=== PATIENT | male | born 1955 | race Caucasian/White ===

== ENCOUNTER 2016-12-09 08:01 | Emergency (ER) | payer MEDICARE, OTHER ==
[2016-12-09] MEDS ORDERED: ONDANSETRON 4 MG/2 ML VIAL IVP STA (08:52)
[2016-12-09] MEDS ORDERED: SODIUM CHLORIDE 0.9% 1,000 ML IV STA (08:52)
[2016-12-09] MEDS ORDERED: KETOROLAC 30 MG/ML 1 ML VIAL IVP STA (08:52)
[2016-12-09 09:16] LABS: Basophils # (A) 0.1 k/uL (0-0.2); Basophils % (A) 1 %; CH 32.9; CHCM 35.3; Eosinophils # (A) 0.3 k/uL (0-0.7); Eosinophils % (A) 4 %; HCT 44.4 % (39.0-53.0); HDW 2.41; HGB 15.9 gm/dL (13.0-17.5); Luc # (Auto) 0.14; Luc % (Auto) 2; Lymphocytes # (A) 1.7 k/uL (1.0-4.8); Lymphocytes % (A) 23 %; MCH 33.4 pg (25.0-35.0); MCHC 35.8 g/dL (31.0-37.0); MCV 93.4 fL (80.0-100.0); Mean Platelet Volume 7.9; Monocytes # (A) 0.8 k/uL (0-1.0); Monocytes % (A) 10 %; Neutrophils # (A) 4.7 k/uL (1.3-7.7); Neutrophils % (A) 61 %; RBC 4.75 m/uL (4.30-5.90); RDW 13.4 % (11.5-15.5); WBC 7.7 k/uL (3.8-10.6); WBC (Perox) 6.74
[2016-12-09 09:18] LABS: Appearance,Urine Clear (Clear); Bilirubin,Urine Negative (Negative); Glucose,Urine (UA) Negative (Negative); Ketones,Urine Negative (Negative); Leukocyte Esterase,Urine Negative (Negative); Nitrite,Urine Negative (Negative); PH, Urine 6.5 (5.0-8.0); Protein,Urine Negative (Negative); Specific Gravity,Urine 1.005 (1.001-1.035); UA Billing (MACRO vs. MICRO) CHEM; Urobilinogen,Urine <2.0 mg/dL (<2.0)
[2016-12-09 09:30] LABS: ALT 43 U/L (21-72); AST 22 U/L (17-59); Alkaline Phosphatase 41 U/L (38-126); Amylase 39 U/L (30-110); Anion Gap 7 mmol/L; Blood Urea Nitrogen 8 mg/dL (9-20); Carbon Dioxide 24 mmol/L (22-30); Chloride 101 mmol/L (98-107); Glucose 100 mg/dL (74-99); Non-African American GFR(MDRD) >60 (>60 ml/min/1.73 sqM); Potassium 4.1 mmol/L (3.5-5.1); Sodium 132 mmol/L (137-145); Total Bilirubin 0.5 mg/dL (0.2-1.3)
--- NOTE | 2016-12-09 09:34 | XR ---
EXAMINATION TYPE: XR KUB DATE OF EXAM: 12/09/2016 COMPARISON: NONE HISTORY: Pain TECHNIQUE: Single supine KUB image of the abdomen is obtained FINDINGS: Small bowel demonstrates no evidence for dilatation or air fluid levels. Gas and fecal material is seen in non-distended colon. No convincing evidence for pneumoperitoneum. No unusual calcifications. The lung bases are clear. The osseous structures are intact. IMPRESSION: 1. Overall nonobstructive bowel gas pattern.
--- NOTE | 2016-12-09 09:42 | ED ---
Back Pain HPI - General Chief Complaint: Back Pain/Injury Stated Complaint: back pain Time Seen by Provider: 12/09/16 08:42 Source: patient, RN notes reviewed, old records reviewed Limitations: no limitations - History of Present Illness Initial Comments: 61-year-old male presents emergency Department chief complaint of left lower back pain made towards his hip. Patient reports that he was at [facility] diagnosed with kidney stone. He isn't placed on antibiotics as well as given pain medication and Flomax to pass a kidney stone. Patient ports that the pain has been continuous since then. Patient denies any fever or chills. Denies any abdominal pain. Patient reports that he is constipated despite using stool softeners because of the pain medications. Patient denies any recent fever or chills, chest pain, shortness breath, nausea or vomiting. He states he's had normal urination. Patient denies any recent falls. - Related Data Home Medications Medication Instructions Recorded Confirmed Aspirin 81 mg PO BID 04/21/15 12/09/16 Atorvastatin [Lipitor] 20 mg PO HS 04/21/15 12/09/16 Gabapentin [Neurontin] 600 mg PO BID 04/21/15 12/09/16 HYDROcodone/APAP 10-325MG [Dawn 1 tab PO QID 04/21/15 12/09/16 10-325] Ipratropium [place] [Atrovent Hfa] 2 puff INHALATION RT-TID 04/21/15 12/09/16 amLODIPine [Norvasc] 10 mg PO DAILY 04/21/15 12/09/16 Previous Rx's Medication Instructions Recorded Cyclobenzaprine [Flexeril] 10 mg PO TID #15 tab 12/09/16 HYDROcodone/APAP 5-325MG [Dawn 1 tab PO Q6HR PRN #12 tab 12/09/16 5-325] Allergies Allergy/AdvReac Type Severity Reaction Status Date / Time venom-honey bee Allergy Unknown Verified 12/09/16 08:47 [bee venom (honey bee)] prednisone AdvReac headache Verified 12/09/16 08:47 Review of Systems ROS Statement: Those systems with pertinent positive or pertinent negative responses have been documented in the HPI. ROS Other: All systems not noted in ROS Statement are negative. Past Medical History Past Medical History: Coronary Artery Disease (CAD), COPD, Deep Vein Thrombosis (DVT), Hyperlipidemia, Hypertension, Osteoarthritis (OA), Vascular Disorder Additional Past Medical History / Comment(s): PAD, suspect some component of COPD with a 15+ pack per day smoking history, quit 2009. History of Any Multi-Drug Resistant Organisms: None Reported Past Surgical History: Hernia Repair, Joint Replacement, Orthopedic Surgery Additional Past Surgical History / Comment(s): Fem-pop bypass, rt carotid endarterectomy, christy knee arthroscopy, rt hip replacement Past Anesthesia/Blood Transfusion Reactions: No Reported Reaction Past Psychological History: No Psychological Hx Reported Smoking Status: Former smoker Past Alcohol Use History: Occasional Past Drug Use History: None Reported - Past Family History Father Family Medical History: Cancer Additional Family Medical History / Comment(s): lung General Exam - General Exam Comments Initial Comments: Review 11-year-old male. No acute distress. Limitations: no limitations General appearance: alert, in no apparent distress Head exam: Present: atraumatic, normocephalic, normal inspection Eye exam: Present: normal appearance, PERRL, EOMI. Absent: scleral icterus, conjunctival injection, periorbital swelling ENT exam: Present: normal exam, mucous membranes moist Neck exam: Present: normal inspection. Absent: tenderness, meningismus, lymphadenopathy Respiratory exam: Present: normal lung sounds bilaterally. Absent: respiratory distress, wheezes, rales, rhonchi, stridor Cardiovascular Exam: Present: regular rate, normal rhythm, normal heart sounds. Absent: systolic murmur, diastolic murmur, rubs, gallop, clicks GI/Abdominal exam: Present: soft, normal bowel sounds. Absent: distended, tenderness, guarding, rebound, rigid Extremities exam: Present: normal inspection, full ROM, normal capillary refill. Absent: tenderness, pedal edema, joint swelling, calf tenderness Back exam: Present: normal inspection Neurological exam: Present: alert, oriented X3, CN II-XII intact Psychiatric exam: Present: normal affect, normal mood Skin exam: Present: warm, dry, intact, normal color. Absent: rash Course Vital Signs 12/09/16 12/09/16 12/09/16 08:15 09:44 10:50 Temperature 97.1 F L 97.8 F 98.0 F Pulse Rate 85 60 63 Respiratory 17 18 18 Rate Blood Pressure 157/72 111/63 111/55 O2 Sat by Pulse 97 100 99 Oximetry Medical Decision Making - Medical Decision Making 61-year-old male presents emergency Department chief complaint of left lower back pain made towards his hip. Patient reports that he was at [facility] diagnosed with kidney stone. He isn't placed on antibiotics as well as given pain medication and Flomax to pass a kidney stone. Patient ports that the pain has been continuous since then. Patient denies any fever or chills. Denies any abdominal pain. Patient reports that he is constipated despite using stool softeners because of the pain medications. She is under grocery negative for any acute process. Patient's urinalysis also shows signs of infection or blood in the case further concerns for kidney stone. Discussed the patient likely could pass edematous. Time. Patient is somewhat tender to palpation over the back. Considering the durations of symptoms and lab work is likely to be a musculoskeletal problem. Patient was discharged with pain medication. Discussed close follow-up with primary care provider. Patient agrees to treatment plan will comply. Return parameters were discussed. Patient was given magnesium citrate to aid with history of constipation. - Lab Data Result diagrams: 12/09/16 09:00 12/09/16 09:00 Lab Results 12/09/16 12/09/16 12/09/16 Range/Units 08:20 09:00 09:00 WBC 7.7 (3.8-10.6) k/uL RBC 4.75 (4.30-5.90) m/uL Hgb 15.9 (13.0-17.5) gm/dL Hct 44.4 (39.0-53.0) % MCV 93.4 (80.0-100.0) fL MCH 33.4 (25.0-35.0) pg MCHC 35.8 (31.0-37.0) g/dL RDW 13.4 (11.5-15.5) % Plt Count 213 (150-450) k/uL Neutrophils % 61 % Lymphocytes % 23 % Monocytes % 10 % Eosinophils % 4 % Basophils % 1 % Neutrophils # 4.7 (1.3-7.7) k/uL Lymphocytes # 1.7 (1.0-4.8) k/uL Monocytes # 0.8 (0-1.0) k/uL Eosinophils # 0.3 (0-0.7) k/uL Basophils # 0.1 (0-0.2) k/uL Sodium 132 L (137-145) mmol/L Potassium 4.1 (3.5-5.1) mmol/L Chloride 101 (98-107) mmol/L Carbon Dioxide 24 (22-30) mmol/L Anion Gap 7 mmol/L BUN 8 L (9-20) mg/dL Creatinine 0.73 (0.66-1.25) mg/dL Est GFR (MDRD) Af Amer >60 (>60 ml/min/1.73 sqM) Est GFR (MDRD) Non-Af >60 (>60 ml/min/1.73 sqM) Glucose 100 H (74-99) mg/dL Calcium 9.0 (8.4-10.2) mg/dL Total Bilirubin 0.5 (0.2-1.3) mg/dL AST 22 (17-59) U/L ALT 43 (21-72) U/L Alkaline Phosphatase 41 (38-126) U/L Total Protein 7.0 (6.3-8.2) g/dL Albumin 4.0 (3.5-5.0) g/dL Amylase 39 (30-110) U/L Lipase 120 (23-300) U/L Urine Color Light Yellow Urine Appearance Clear (Clear) Urine pH 6.5 (5.0-8.0) Ur Specific [place] 1.005 (1.001-1.035) Urine Protein Negative (Negative) Urine Glucose (UA) Negative (Negative) Urine Ketones Negative (Negative) Urine Blood Negative (Negative) Urine Nitrite Negative (Negative) Urine Bilirubin Negative (Negative) Urine Urobilinogen <2.0 (<2.0) mg/dL Ur Leukocyte Esterase Negative (Negative) - Radiology Data Radiology results: report reviewed Overall nonobjective bowel gas pattern. Disposition Clinical Impression: Back pain, Constipation Disposition: HOME SELF-CARE Condition: Good Instructions: Constipation (ED), Chronic Back Pain (ED) Additional Instructions: Patient advised to rest, continue to increase her fluids. Patient should follow -up with primary doctor. Continue to take stool softeners. Prescriptions: Cyclobenzaprine [Flexeril] 10 mg PO TID #15 tab HYDROcodone/APAP 5-325MG [Dawn 5-325] 1 tab PO Q6HR PRN #12 tab PRN Reason: Pain Referrals: Jacey Mcgrath DO [Primary Care Provider] - 1-2 days Time of Disposition: 10:34
[2016-12-09 09:45] VITALS: RESP 18
[2016-12-09] MEDS ORDERED: MAGNESIUM CITRATE 296 ML BOTTLE PO ONE (10:35)
[2016-12-09 10:53] VITALS: BP 111/55; PULSE 63; TEMP 98
[2016-12-09] MEDS ORDERED: IBUPROFEN 600 MG TAB PO STA (10:54)
== END 2016-12-09 11:08 | disposition home or self-care (01) ==
LOC: EC 08:01
DX: M54.5 Low back pain (principal); K59.00 Constipation, unspecified; I25.10 Atherosclerotic heart disease of native coronary artery without angina pectoris; J44.9 Chronic obstructive pulmonary disease, unspecified; E78.5 Hyperlipidemia, unspecified; I10 Essential (primary) hypertension; M19.90 Unspecified osteoarthritis, unspecified site; Z87.891 Personal history of nicotine dependence; Z79.899 Other long term (current) drug therapy; Z79.82 Long term (current) use of aspirin; Z79.891 Long term (current) use of opiate analgesic; Z91.030 Bee allergy status; Z88.8 Allergy status to other drugs, medicaments and biological substances; Z98.890 Other specified postprocedural states
CPT/HCPCS: 36415; 80053; 82150; 83690; 85025; 81003; 74000; 99284; 96374; 96375; 96361 ×2; J2405; J1885

== ENCOUNTER 2017-08-16 12:54 | Emergency (ER) | payer MEDICARE, OTHER ==
[2017-08-16 13:15] VITALS: PULSE 98; RESP 18
[2017-08-16] MEDS ORDERED: MORPHINE SULFATE 4 MG/ML SYRINGE IVP STA ×2 (17:12→18:21)
--- NOTE | 2017-08-16 17:48 | ED ---
General Adult HPI <Nehemiah Arreaga - Last Filed: 08/16/17 18:30> - General Source: patient Mode of arrival: wheelchair Limitations: no limitations <Vito Brown - Last Filed: 08/16/17 18:37> - General Chief complaint: Extremity Problem,Nontraumatic Stated complaint: Inflamed left foot Time Seen by Provider: 08/16/17 16:22 - History of Present Illness Initial comments: 61-year-old male presents to the emergency department for a chief complaint of left lower extremity pain. Patient says this pain has been ongoing for the past month. It has become especially worse in the past 2 days. Patient states his foot has also been red for the past month. Patient does have a history of peripheral vascular disease and had a fempop bypass by Dr. Quintanilla in 2014. In 2015 it was found to be occluded. Patient also admits to feeling colder. He has an appointment with Dr. Quintanilla in 2 days but could not manage the pain until that time. He is taking Weir 10-325 and that is not helping. He also states his nails look wider on the left foot. He says the pain is worse when he tries to walk on it and also hurts to bear weight. He states his foot looks more red when he lowers it and becomes increasingly pale when he raises it. Patient denies any injury to the foot. Denies any increased swelling to the foot as well. Patient had a negative Doppler last week which ruled out DVT. ( Vito Brown) - Related Data Home Medications Medication Instructions Recorded Confirmed Aspirin 81 mg PO BID 04/21/15 08/16/17 Atorvastatin [Lipitor] 20 mg PO HS 04/21/15 08/16/17 Gabapentin [Neurontin] 600 mg PO BID 04/21/15 08/16/17 HYDROcodone/APAP 10-325MG [Weir 1 tab PO QID 04/21/15 08/16/17 10-325] Ipratropium [place] [Atrovent Hfa] 2 puff INHALATION RT-HS 04/21/15 08/16/17 amLODIPine [Norvasc] 10 mg PO DAILY 04/21/15 08/16/17 Previous Rx's Medication Instructions Recorded Cyclobenzaprine [Flexeril] 10 mg PO TID #15 tab 12/09/16 Allergies Allergy/AdvReac Type Severity Reaction Status Date / Time venom-honey bee Allergy Unknown Verified 08/16/17 16:08 [bee venom (honey bee)] prednisone AdvReac headache Verified 08/16/17 16:08 Review of Systems ROS Other: All systems not noted in ROS Statement are negative. <Nehemiah Arreaga - Last Filed: 08/16/17 18:30> ROS Other: All systems not noted in ROS Statement are negative. <Vito Brown - Last Filed: 08/16/17 18:37> ROS Statement: Those systems with pertinent positive or pertinent negative responses have been documented in the HPI. Past Medical History Past Medical History: Coronary Artery Disease (CAD), COPD, Deep Vein Thrombosis (DVT), Hyperlipidemia, Hypertension, Osteoarthritis (OA), Vascular Disorder Additional Past Medical History / Comment(s): PAD, suspect some component of COPD with a 15+ pack per day smoking history, quit 2009. History of Any Multi-Drug Resistant Organisms: None Reported Past Surgical History: Hernia Repair, Joint Replacement, Orthopedic Surgery Additional Past Surgical History / Comment(s): Fem-pop bypass, rt carotid endarterectomy, christy knee arthroscopy, rt hip replacement Past Anesthesia/Blood Transfusion Reactions: No Reported Reaction Past Psychological History: No Psychological Hx Reported Smoking Status: Former smoker Past Alcohol Use History: Occasional Past Drug Use History: None Reported - Past Family History Father Family Medical History: Cancer Additional Family Medical History / Comment(s): lung <Vito Brown - Last Filed: 08/16/17 18:37> General Exam Limitations: no limitations General appearance: alert, in no apparent distress Head exam: Present: atraumatic, normocephalic, normal inspection Respiratory exam: Present: normal lung sounds bilaterally. Absent: respiratory distress, wheezes, rales, rhonchi, stridor Cardiovascular Exam: Present: regular rate, normal rhythm, normal heart sounds. Absent: systolic murmur, diastolic murmur, rubs, gallop, clicks Extremities exam: Present: tenderness (Tenderness in the left foot and digits), other (No sores or signs of infection noted in the left foot.). Absent: normal inspection, full ROM (Limited range of motion in the phalanges of the left foot. ), pedal edema, joint swelling, calf tenderness <Vito Brown - Last Filed: 08/16/17 18:37> Vital Signs 08/16/17 13:12 Temperature 98.6 F Pulse Rate 98 Respiratory 18 Rate Blood Pressure 130/75 O2 Sat by Pulse 96 Oximetry Medical Decision Making - Lab Data Result diagrams: 08/16/17 17:40 08/16/17 17:40 <Nehemiah Arreaga - Last Filed: 08/16/17 18:30> - Lab Data Result diagrams: 08/16/17 17:40 08/16/17 17:40 <KevinVito P - Last Filed: 08/16/17 18:37> - Medical Decision Making Medical decision making; Doppler study shows positive posterior tibial artery. The patient has warm leg except for the distal forefoot of his left foot. He reports for the past month she's had discoloration states it began slightly worse over the last couple days. Patient reports his Weir was not helping. Examination with Doppler findings as noted above posterior tibial pulse. Unable to find a pedis dorsalis pulses on the left foot. His toes to mandi and refill. His problems been chronic over at least one week. I discussed the case with Dr. Quintanilla well. The patient will be seen by him tomorrow in the office at approximately noon. Patient was made comfortable emergency room with pain medication. Advised to keep his foot in a comfortable position. Return emergency room for any changes. Dr. Arreaga (Nehemiah Arreaga) 61-year-old male patient presents to the ER with chief complaint of left lower extremity pain. Patient has a history of peripheral vascular disease with a fem -pop bypass performed by Dr. Quintanilla 2014. In 2016 it was noted to be occluded. Patient states the pain has been ongoing for the past month but got worse in the past 2 days. Patient states he noticed his foot is very red when he lowers it and it becomes white when he raises it above his head. Patient states he has an appointment with Dr. Quintanilla in 2 days but the pain became unbearable even with Weir. Patient had a negative venous Doppler last week which ruled out DVT. Bedside Doppler was used today to locate a pedal pulse in his left foot. I was able to locate the pedal pulse in the right foot but I was unsuccessful in the left foot. I did however locate the posterior tibial pulse in the left foot with Dr. Arreaga. Dr. Arreaga contacted Dr. Quintanilla and as this pain has been ongoing for the past month the patient will see him tomorrow at noon. The patient is in agreement with this plan of action and they are happy they will see Dr. Quintanilla sooner. After administration of 4 mg of morphine the patient felt much better. 2 more milligrams will be administered before he leaves. (Vito Brown) - Lab Data Lab Results 08/16/17 08/16/17 Range/Units 17:40 17:40 WBC 8.6 (3.8-10.6) k/uL RBC 4.70 (4.30-5.90) m/uL Hgb 14.7 (13.0-17.5) gm/dL Hct 44.2 (39.0-53.0) % MCV 93.9 (80.0-100.0) fL MCH 31.3 (25.0-35.0) pg MCHC 33.4 (31.0-37.0) g/dL RDW 12.9 (11.5-15.5) % Plt Count 236 (150-450) k/uL Neutrophils % 64 % Lymphocytes % 24 % Monocytes % 8 % Eosinophils % 3 % Basophils % 0 % Neutrophils # 5.5 (1.3-7.7) k/uL Lymphocytes # 2.0 (1.0-4.8) k/uL Monocytes # 0.7 (0-1.0) k/uL Eosinophils # 0.2 (0-0.7) k/uL Basophils # 0.0 (0-0.2) k/uL Sodium 138 (137-145) mmol/L Potassium 4.4 (3.5-5.1) mmol/L Chloride 101 (98-107) mmol/L Carbon Dioxide 27 (22-30) mmol/L Anion Gap 10 mmol/L BUN 11 (9-20) mg/dL Creatinine 0.70 (0.66-1.25) mg/dL Est GFR (CKD-EPI)AfAm >90 (>60 ml/min/1.73 sqM) Est GFR (CKD-EPI)NonAf >90 (>60 ml/min/1.73 sqM) Glucose 96 (74-99) mg/dL Calcium 9.9 (8.4-10.2) mg/dL Disposition <Nehemiah Arreaga - Last Filed: 08/16/17 18:30> Time of Disposition: 18:37 <Vito Brown - Last Filed: 08/16/17 18:37> Clinical Impression: Peripheral vascular disease Disposition: HOME SELF-CARE Condition: Good Instructions: Peripheral Artery Disease (ED) Additional Instructions: Please follow up with Dr. Quintanilla at the scheduled time of tomorrow at noon. Please return to the emergency department if your pain worsens severely. Referrals: Jacey Mcgrath DO [Primary Care Provider] - 1-2 days
[2017-08-16 17:56] LABS: Basophils % (A) 0 %; Eosinophils # (A) 0.2 k/uL (0-0.7); Eosinophils % (A) 3 %; HCT 44.2 % (39.0-53.0); HGB 14.7 gm/dL (13.0-17.5); Lymphocytes % (A) 24 %; MCH 31.3 pg (25.0-35.0); MCHC 33.4 g/dL (31.0-37.0); MCV 93.9 fL (80.0-100.0); Mean Platelet Volume 7.2; Monocytes # (A) 0.7 k/uL (0-1.0); Monocytes % (A) 8 %; Neutrophils # (A) 5.5 k/uL (1.3-7.7); Neutrophils % (A) 64 %; Platelet Count 236 k/uL (150-450); RDW 12.9 % (11.5-15.5); WBC 8.6 k/uL (3.8-10.6)
[2017-08-16 18:14] LABS: Anion Gap 10 mmol/L; Blood Urea Nitrogen 11 mg/dL (9-20); Calcium 9.9 mg/dL (8.4-10.2); Carbon Dioxide 27 mmol/L (22-30); Chloride 101 mmol/L (98-107); Glucose 96 mg/dL (74-99); Potassium 4.4 mmol/L (3.5-5.1); Sodium 138 mmol/L (137-145)
[2017-08-16 18:50] VITALS: BP 135/76; TEMP 98.3
== END 2017-08-16 18:50 | disposition home or self-care (01) ==
LOC: EC 12:54
DX: I73.9 Peripheral vascular disease, unspecified (principal); I25.10 Atherosclerotic heart disease of native coronary artery without angina pectoris; J44.9 Chronic obstructive pulmonary disease, unspecified; E78.5 Hyperlipidemia, unspecified; I10 Essential (primary) hypertension; Z95.1 Presence of aortocoronary bypass graft; Z87.891 Personal history of nicotine dependence; Z79.82 Long term (current) use of aspirin; Z79.891 Long term (current) use of opiate analgesic; Z91.030 Bee allergy status; Z88.8 Allergy status to other drugs, medicaments and biological substances
CPT/HCPCS: 99284; 96374; 36415; 80048; 85025; J2270

== ENCOUNTER → 2019-05-10 | Outpatient (CLI) | payer MEDICARE ==
--- NOTE | 2019-05-10 17:04 | CT ---
EXAMINATION TYPE: CT angio abd aorta w/Runoff DATE OF EXAM: 05/10/2019 COMPARISON: None INDICATION: Possible right femoral occlussion DLP: 1188.2 mGycm, Automated exposure control for dose reduction was used. CONTRAST: 120 mL of Isovue 370. Study performed TECHNIQUE: Axial images were obtained from above the diaphragm to the pubic rami in the axial plane a t 5 mm thick sections. Reconstructed images are reviewed on the computer in the coronal plane. FINDINGS: Limited CT sections are obtained the lung bases. The lung bases are clear. CTA: Contrast timing is for evaluation of the aorta and runoff. Vascular calcification is within the aorta. Celiac axis and superior mesenteric artery are patent. There are 2 renal arteries. There is mi nimal fusiform prominence of the midabdominal aorta with an AP diameter of 2.5 cm. Aortic bifurcation is slightly prominent with an AP diameter of 2.7 cm just above the bifurcation. Iliac vessels are calcified but are patent. There is some prominence of the mid right common iliac ar melly measuring 1.7 cm. External iliac vessels are patent. Vascular calcification is present may have some narrowing present. Contrast is evident within the distal external iliac vessels. Common femoral arteries appear to lack of contrast. Vascular calcification is noted. There is likely some collateral vessel reconstitution with visualization of a left superficial vascular structure ext ending to the medial left knee reconstituting the popliteal artery. Has there been a bypass? Trifurcation vessels:The visualized trifurcation vessels are patent on the left. The left posterior t ibial artery is patent to the level of the ankle. Left Anterior tibial and peroneal artery appears to terminate within the calf region. Trifurcation vessels on the right are patent to the level of the a nkle. Popliteal artery on the right appears to contain contrast. The superficial femoral artery however has limited contrast and has vascular calcification. This may have reconstitution at the popliteal arter y from collateral vessels. Three-D reconstructed images appear to better visualize the vascular structures. However, there is ex tensive vascular calcification in the degree of stenosis in these regions may be underestimated. CT ABDOMEN: Liver: Normal Spleen: Normal Pancreas: Fatty infiltration liver is present. Adrenal glands: The adrenal glands are normal. Gallbladder: Cholelithiasis is present. Kidneys: No masses are evident. No hydronephrosis is present. No cysts are present. Delayed images were obtained through the kidneys, which remain unremarkable. Aorta: Vascular calcification is within the aorta. Inferior vena cava: Normal. CT PELVIS: Limitations present from beam hardening artifact lower right hip prosthesis. Loops of bowel within the abdomen and pelvis are normal. There are loops of bowel which are incom pletely distended or lack oral contrast limiting their evaluation. Appendix: Normal as visualized. Urinary bladder: Normal. Genitourinary structures: Osseous structures: No suspicious lytic or sclerotic lesions. IMPRESSIONS: 1. There appears to be obstruction of the bilateral common femoral arteries although reconstitution may be present on the right and collateral vascular reconstitution is present on the left to the trif urcation vessels.
== END | disposition home or self-care (01) ==
LOC: RADCTMAIN 15:04
PROVIDERS: ATTEND Surgery
DX: I70.213 Atherosclerosis of native arteries of extremities with intermittent claudication, bilateral legs (principal)
CPT/HCPCS: 75635; Q9967

== ENCOUNTER → 2019-05-17 | Outpatient (CLI) | payer MEDICARE ==
[2019-05-17 16:31] LABS: African American GFR (CKD) >90 (>60 ml/min/1.73 sqM); Anion Gap 10 mmol/L; Blood Urea Nitrogen 9 mg/dL (9-20); Carbon Dioxide 26 mmol/L (22-30); Chloride 103 mmol/L (98-107); Non-African American GFR(CKD) 89 (>60 ml/min/1.73 sqM); Potassium 4.4 mmol/L (3.5-5.1); Sodium 139 mmol/L (137-145)
[2019-05-17 16:35] LABS: Basophils % (A) 1 %; Eosinophils # (A) 0.2 k/uL (0-0.7); Eosinophils % (A) 2 %; HCT 40.1 % (39.0-53.0); HGB 13.4 gm/dL (13.0-17.5); Lymphocytes % (A) 17 %; MCH 32.9 pg (25.0-35.0); MCHC 33.4 g/dL (31.0-37.0); MCV 98.6 fL (80.0-100.0); Mean Platelet Volume 7.1; Monocytes # (A) 0.6 k/uL (0-1.0); Monocytes % (A) 11 %; Neutrophils # (A) 4.1 k/uL (1.3-7.7); Neutrophils % (A) 67 %; Platelet Count 234 k/uL (150-450); RBC 4.06 m/uL (4.30-5.90); RDW 12.5 % (11.5-15.5); WBC 6.1 k/uL (3.8-10.6)
== END | disposition home or self-care (01) ==
LOC: LABPAT 15:47
PROVIDERS: ATTEND Surgery
DX: Z01.812 Encounter for preprocedural laboratory examination (principal)
CPT/HCPCS: 36415; 80051; 82565; 84520; 85025

== ENCOUNTER 2019-06-18 12:08 | Day surgery (SDC) | payer MEDICARE, OTHER ==
[2019-06-13 13:39] VITALS: BMI 28.1
[~2019-06-18 12:08] MED LIST: ASPIRIN 325 MG TAB PO STA; SODIUM CHLORIDE 0.9% 1,000 ML in EMPTY BAG 1 BAG IV ONE
[2019-06-18 12:46] LABS: Basophils # (A) 0.1 k/uL (0-0.2); Basophils % (A) 1 %; Eosinophils # (A) 0.3 k/uL (0-0.7); Eosinophils % (A) 3 %; Lymphocytes # (A) 1.7 k/uL (1.0-4.8); Lymphocytes % (A) 21 %; MCH 33.9 pg (25.0-35.0); MCHC 34.1 g/dL (31.0-37.0); MCV 99.4 fL (80.0-100.0); Monocytes # (A) 0.5 k/uL (0-1.0); Monocytes % (A) 7 %; Neutrophils # (A) 5.3 k/uL (1.3-7.7); Neutrophils % (A) 66 %; Platelet Count 226 k/uL (150-450); RBC 4.12 m/uL (4.30-5.90); RDW 12.7 % (11.5-15.5)
[2019-06-18 12:55] LABS: African American GFR (CKD) >90 (>60 ml/min/1.73 sqM); Anion Gap 8 mmol/L; Blood Urea Nitrogen 13 mg/dL (9-20); Calcium 9.7 mg/dL (8.4-10.2); Carbon Dioxide 24 mmol/L (22-30); Chloride 108 mmol/L (98-107); Glucose 115 mg/dL (74-99); Non-African American GFR(CKD) >90 (>60 ml/min/1.73 sqM); Potassium 4.4 mmol/L (3.5-5.1); Sodium 140 mmol/L (137-145)
[2019-06-18] MEDS ORDERED: NEOSTIGMINE 1 MG/ML 10 ML VIAL ONE (14:07)
[2019-06-18] MEDS ORDERED: .MORPHINE SULFATE (INJ) 10 MG/ML SYRINGE ONE (14:07)
[2019-06-18] MEDS ORDERED: ROCURONIUM BROMIDE 10 MG/ML 10 ML VIAL IV ONE (14:07)
[2019-06-18] MEDS ORDERED: MIDAZOLAM 2 MG/2 ML VIAL ONE (14:07)
[2019-06-18] MEDS ORDERED: GLYCOPYRROLATE 0.2 MG/ML 2 ML VIAL ONE (14:07)
[2019-06-18] MEDS ORDERED: SUCCINYLCHOLINE CHLORIDE 100 MG/5 ML SYR IV ONE (14:07)
[2019-06-18] MEDS ORDERED: ONDANSETRON 4 MG/2 ML VIAL ONE (14:07)
[2019-06-18] MEDS ORDERED: LIDOCAINE 1% INJ 10MG/ML (20 ML MDV) ONE (14:07)
[2019-06-18] MEDS ORDERED: PROPOFOL 10 MG/ML 20 ML VIAL IV ONE (14:07)
[2019-06-18] MEDS ORDERED: PHENYLEPHRINE-0.9% NACL SYG 1 MG/10 ML SYRINGE ONE (14:07)
[2019-06-18] MEDS ORDERED: fentaNYL (PF) 50 MCG/ML 2 ML AMP ONE (14:07)
[2019-06-18] MEDS ORDERED: PROTAMINE SULFATE 10 MG/ML 5 ML VIAL IV ONE (14:07)
[2019-06-18] MEDS ORDERED: HEPARIN SODIUM,PORCINE 10,000 UNIT/ML 1 ML VIAL ONE (14:07)
[2019-06-18] MEDS ORDERED: IOPAMIDOL-300 100ML BTL INJ ONE (16:20)
[2019-06-18] MEDS ORDERED: LACTATED RINGERS 1,000 ML IV ONE (16:33)
[2019-06-18] MEDS ORDERED: IPRATROPIUM 0.5 MG/2.5 ML NEBU INHALATION PRN (16:38)
[2019-06-18] MEDS ORDERED: BACLOFEN 10 MG TAB PO PRN (16:38)
[2019-06-18] MEDS ORDERED: EPINEPHRINE 0.3 MG IM PRN (16:38)
--- NOTE | 2019-06-18 17:10 | IR ---
Fluoroscopy HISTORY: Peripheral vascular occlusive disease 12.35 minutes fluoroscopy time supplied to the referring clinician. 496 intraoperative C-arm images document the procedure. See dictated report from vascular surgery.
--- NOTE | 2019-06-18 17:12 | P.OP ---
Date of Procedure: 06/18/19 Preoperative Diagnosis: Right superficial femoral artery stenosis/subtotal occlusion Postoperative Diagnosis: Totally occluded right superficial femoral artery with one of approximately 200 mm Procedure(s) Performed: #1: Ultrasound-guided cannulation right popliteal artery. #2: Right femoral angiogram. #3: Atherectomy right superficial femoral artery. #4: Postatherectomy balloon dilation right superficial femoral artery. #5: Placement drug-eluting stent right superficial femoral artery. Implants: Drug-eluting stent. Anesthesia: GETA Surgeon: Allen Paredes Estimated Blood Loss (ml): 20 IV fluids (ml): 800 Pathology: none sent Condition: stable Disposition: observation Indications for Procedure: Patient is a 63-year-old male who had presented with severe right lower extremity lifestyle limiting calf claudication. He has a long history of peripheral vascular disease having undergone a right left femoral to tibial bypass graft for limb threatening ischemia. He is recovered well from this and now is bothered by his right lower extremity claudication. Physical examination was consistent with femoral artery occlusive disease. Arterial Doppler had been performed which also demonstrated findings consistent with femoral artery occlusive disease. CT angiogram had been performed demonstrating multilevel right SFA stenosis. Patient had been on a medical regimen including both aspirin and Plavix and statin. The diagnosis was reviewed with the patient and his . We discussed both nonoperative, percutaneous as well as operative intervention. Patient wished to proceed with percutaneous intervention. Risks, benefits were discussed with the patient. Consent form signed. Operative Findings: Highly calcified and totally occluded right superficial femoral artery Description of Procedure: Patient was brought to the special procedure suite. Patient was intubated by the department of anesthesiology and placed in the prone position. The right leg had previously been marked. The right popliteal space was sterilely prepped and draped in usual manner. Utilizing ultrasound a micropuncture needle was utilized to cannulate the right popliteal artery. Once cannulated Softip guidewire was advanced into the artery. The needle was withdrawn and a micropuncture sheath and dilator advanced over the guidewire. Guidewire was withdrawn as was the dilator and a 0.035 inch guidewire was advanced under fluoroscopic guidance into the distal femoral artery. The micropuncture sheath was then exchanged for 6-Tristanian sheath. The patient was systemically heparinized with 7000 units of heparin. Under fluoroscopic guidance a 0.018 glide advantage catheter was advanced into the external iliac artery. A quick cross catheter was used to assist in this gu idewire placement. The guidewire was withdrawn and angiogram demonstrated the quick cross catheter to be in the distal external iliac artery. Subsequently a 0.014 inch guidewire was advanced through the quick cross catheter and the quick cross catheter was withdrawn. Angiogram of the right femoral artery was performed. A Hawk 1 atherectomy device was selected and advanced over the guidewire and utilized to atherectomized the mid and proximal portion of the superficial femoral artery. The atherectomy device was removed to clear the collection chamber. Once accomplished attempt at re-advancing the atherectomy device over the guidewire was unsuccessful due to heavily calcified stenosis at the adductor canal level. It was decided not to further attempt pushing the atherectomy device through this area and a balloon angioplasty was then performed of the superficial femoral artery utilizing a 5 mm x 200 mm balloon catheter. Once this was completed a repeat angiogram was performed. This demonstrated a dissection at the adductor canal level. This was controlled with placement of a 7 mm x 100 mm drug-eluting stent. Post-stent dilation was performed of the stented segment. Completion angiogram was once again performed. As demonstrated no flow-limiting lesion. A small dissection near the distal SFA was noted. This was felt to be of relatively little consequence and anticipate this would heal on its own accord without further intervention. With the above findings noted the guidewire and sheath were withdrawn and pressure was held at the puncture site until all evidence of bleeding ceased. Patient received 25 mg of protamine to reverse the heparin effect. Zak wrap was placed about the knee level to help with continued compression. Her graft patient tolerated procedure well awoke without apparent complication was transferred to the phase 1 recovery area satisfactory and stable condition. Total fluoroscopy time was 12.3 minutes. Total contrast volume was 80 ML's of Isovue 270 and patient received 800 mL of intravenous fluid during the procedure.
[2019-06-18] MEDS: HYDROcodone/APAP 10-325MG 1 EACH TAB PO PRN (19:07)
[2019-06-18] MEDS: CLOPIDOGREL 75 MG TAB PO SCH (20:12)
[2019-06-18] MEDS: ASPIRIN 81 MG PO SCH (20:12)
[2019-06-18] MEDS: GABAPENTIN 300 MG CAP PO SCH (20:12)
[2019-06-18] MEDS: SODIUM CHLORIDE 0.9% 1,000 ML IV SCH (20:13)
[2019-06-18] MEDS ORDERED: ATORVASTATIN 80 MG TAB PO SCH (21:00)
[2019-06-18] MEDS ORDERED: LOSARTAN 25 MG TAB PO SCH (21:00)
[2019-06-18 22:54] VITALS: RESP 18
[2019-06-19] MEDS: HYDROcodone/APAP 10-325MG 1 EACH TAB PO PRN ×2 (01:09→08:38)
[2019-06-19 06:45] LABS: African American GFR (CKD) >90 (>60 ml/min/1.73 sqM); Anion Gap 8 mmol/L; Blood Urea Nitrogen 11 mg/dL (9-20); Calcium 9.2 mg/dL (8.4-10.2); Carbon Dioxide 28 mmol/L (22-30); Chloride 105 mmol/L (98-107); Glucose 108 mg/dL (74-99); Non-African American GFR(CKD) >90 (>60 ml/min/1.73 sqM); Sodium 141 mmol/L (137-145)
[2019-06-19] MEDS: SODIUM CHLORIDE 0.9% 1,000 ML IV SCH (08:28)
[2019-06-19] MEDS ORDERED: amLODIPine 10 MG TAB PO SCH (09:00)
[2019-06-19] MEDS ORDERED: ENOXAPARIN 40 MG/0.4 ML SYRINGE SQ SCH (09:00)
[2019-06-19] MEDS: ASPIRIN 81 MG PO SCH (09:42)
[2019-06-19] MEDS: GABAPENTIN 300 MG CAP PO SCH (09:42)
[2019-06-19] MEDS: CLOPIDOGREL 75 MG TAB PO SCH (09:42)
--- NOTE | 2019-06-19 12:09 | P.DS ---
Providers Attending physician: Allen Paredes DO Primary care physician: Jacey [facility] Course: The patient is a 63-year-old male who follows with Dr. Paredes for peripheral arterial disease. Yesterday the patient underwent a right femoral angiogram and arterectomy of the right lower extremity per Dr. Paredes for right superficial femoral artery stenosis/subtotal occlusion. He is doing well today has been up to the restroom without difficulty, states he has mild tenderness of the right popliteal, with no bleeding. Assessment: Patient is alert and oriented. Without any complaints this morning. Lungs sounds clear to auscultation bilaterally, heart was regular without murmur. Bilateral lower extremities warm to touch, no signs of bleeding from right popliteal site. Doppler signals present for B/L femoral, popliteal, PT, and DP Plan - Discharge Summary Discharge Rx Participant: Yes New Discharge Prescriptions: No Action amLODIPine [Norvasc] 10 mg PO DAILY Ipratropium [place] [Atrovent Hfa] 1 puff INHALATION HS PRN PRN Reason: sob HYDROcodone/APAP 10-325MG [[place] 10-325] 1 tab PO QID PRN PRN Reason: Pain Gabapentin [Neurontin] 600 mg PO BID Atorvastatin [Lipitor] 80 mg PO HS Aspirin 81 mg PO DAILY EPINEPHrine (Auto Inject) [Epipen] 0.3 mg IM ONCE PRN PRN Reason: Anaphylaxis Clopidogrel [Plavix] 75 mg PO DAILY Baclofen [Lioresal] 20 mg PO TID PRN PRN Reason: Pain Losartan Potassium [Cozaar] 25 mg PO HS Discharge Medication List Aspirin 81 mg PO DAILY 04/21/15 [History] Atorvastatin [Lipitor] 80 mg PO HS 04/21/15 [History] Gabapentin [Neurontin] 600 mg PO BID 04/21/15 [History] HYDROcodone/APAP 10-325MG [[place] 10-325] 1 tab PO QID PRN 04/21/15 [History] Ipratropium [place] [Atrovent Hfa] 1 puff INHALATION HS PRN 04/21/15 [History] amLODIPine [Norvasc] 10 mg PO DAILY 04/21/15 [History] Clopidogrel [Plavix] 75 mg PO DAILY 05/25/19 [History] EPINEPHrine (Auto Inject) [Epipen] 0.3 mg IM ONCE PRN 05/25/19 [History] Baclofen [Lioresal] 20 mg PO TID PRN 06/13/19 [History] Losartan Potassium [Cozaar] 25 mg PO HS 06/13/19 [History] Follow up Appointment(s)/Referral(s): Allen Paredes DO [Doctor of Osteopathic Medicine] - 06/28/19 Activity/Diet/Wound Care/Special Instructions: No strenuous activity or heavy lifting. May shower, no tub bathing until follow-up appointment. Discharge Disposition: HOME SELF-CARE
[2019-06-19 12:43] VITALS: BP 139/73; PULSE 98; TEMP 98
== END 2019-06-19 14:38 | disposition home or self-care (01) ==
LOC: CATHCVL 12:08 → 3SCARD 17:20 → CATHCVL 06-19 14:38
PROVIDERS: ATTEND Surgery
DX: I70.211 Atherosclerosis of native arteries of extremities with intermittent claudication, right leg (principal); I70.92 Chronic total occlusion of artery of the extremities; I25.10 Atherosclerotic heart disease of native coronary artery without angina pectoris; I10 Essential (primary) hypertension; E78.5 Hyperlipidemia, unspecified; Z98.890 Other specified postprocedural states; Z80.9 Family history of malignant neoplasm, unspecified; Z82.49 Family history of ischemic heart disease and other diseases of the circulatory system; Z87.891 Personal history of nicotine dependence; Z96.641 Presence of right artificial hip joint; Z95.5 Presence of coronary angioplasty implant and graft; Z97.2 Presence of dental prosthetic device (complete) (partial); Z79.02 Long term (current) use of antithrombotics/antiplatelets; Z79.82 Long term (current) use of aspirin; Z79.899 Other long term (current) drug therapy; Z79.891 Long term (current) use of opiate analgesic
CPT/HCPCS: 37227; 80048 ×2; 83735; 85025; C1894 ×2; C1769 ×6; C1887; C1725 ×2; C1714; C1874; J2250; J2720; J1644; J2710; J2270; J2405; J2001; J1650; J3010; J2370; J0330; J2704; Q9967

== ENCOUNTER 2020-04-21 00:21 | Inpatient (IN) | payer MEDICARE, OTHER ==
[2020-04-21 00:56] LABS: Basophils # (A) 0.1 k/uL (0-0.2); Basophils % (A) 1 %; Eosinophils # (A) 0.2 k/uL (0-0.7); Eosinophils % (A) 3 %; HCT 39.5 % (39.0-53.0); HGB 13.4 gm/dL (13.0-17.5); Lymphocytes # (A) 1.7 k/uL (1.0-4.8); Lymphocytes % (A) 23 %; MCH 33.4 pg (25.0-35.0); MCHC 33.8 g/dL (31.0-37.0); MCV 98.6 fL (80.0-100.0); Mean Platelet Volume 6.9; Monocytes # (A) 0.4 k/uL (0-1.0); Monocytes % (A) 6 %; Neutrophils % (A) 65 %; Platelet Count 215 k/uL (150-450); WBC 7.7 k/uL (3.8-10.6)
[2020-04-21 01:05] LABS: INR 1.1 (<1.2)
[2020-04-21] MEDS ORDERED: HEPARIN SODIUM,PORCINE 5,000 UNIT/ML 1 ML VIAL IV PRN (01:16)
[2020-04-21] MEDS ORDERED: NITROGLYCERIN SL TABS 0.4 MG TAB SUBLINGUAL PRN ×2 (01:17→09:08)
--- NOTE | 2020-04-21 01:17 | ED ---
Chest Pain HPI - General Chief Complaint: Chest Pain Stated Complaint: Chest pain Time Seen by Provider: 04/21/20 00:28 Source: patient, RN/MD, EMS Mode of arrival: EMS Limitations: no limitations - History of Present Illness Initial Comments: Allen 4-year-old gentleman with a known history of coronary artery disease who presents to the ER today as a transfer from an outside hospital for further evaluation of an incident knee. Patient reports that earlier today he was working in his garage when he developed chest pain. He immediately with the Hospital where EKG was nonischemic but troponin was elevated. 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 Patient reports that his chest pain resolved weekly after single dose of morphine. He had declined nitroglycerin headache. Patient denies any recent illness, fevers chills cough nausea or vomiting. - Related Data Home Medications Medication Instructions Recorded Confirmed RX: Aspirin 81 mg PO DAILY 04/21/15 06/18/19 RX: Atorvastatin [Lipitor] 80 mg PO HS 04/21/15 06/18/19 RX: Gabapentin [Neurontin] 600 mg PO BID 04/21/15 06/18/19 RX: HYDROcodone/APAP 10-325MG 1 tab PO QID PRN 04/21/15 06/18/19 [[place] 10-325] RX: Ipratropium [place] [Atrovent 1 puff INHALATION HS PRN 04/21/15 06/13/19 Hfa] RX: amLODIPine [Norvasc] 10 mg PO DAILY 04/21/15 06/18/19 Clopidogrel [Plavix] 75 mg PO DAILY 05/25/19 06/13/19 EPINEPHrine (Auto Inject) [Epipen] 0.3 mg IM ONCE PRN 05/25/19 06/13/19 Baclofen [Lioresal] 20 mg PO TID PRN 06/13/19 06/13/19 Losartan Potassium [Cozaar] 25 mg PO HS 06/13/19 06/18/19 Allergies Allergy/AdvReac Type Severity Reaction Status Date / Time venom-honey bee Allergy Anaphylaxis Verified 06/13/19 13:22 [bee venom (honey bee)] Review of Systems ROS Statement: Those systems with pertinent positive or pertinent negative responses have been documented in the HPI. ROS Other: All systems not noted in ROS Statement are negative. EKG Findings - EKG Comments: EKG Findings:: EKG was obtained due to previous chest pain and elevated troponin, EKG was obtained at 12:20 AM rate is 74 rhythm is sinus there is a normal axis, there are normal intervals, DC 174 QRS 88 QTc is 437 there are no acute ST elevations or depressions there is no evidence of acute ischemia or infarction. Past Medical History Past Medical History: Coronary Artery Disease (CAD), Deep Vein Thrombosis (DVT), Hyperlipidemia, Hypertension, Osteoarthritis (OA), Vascular Disorder Additional Past Medical History / Comment(s): dvt left leg, History of Any Multi-Drug Resistant Organisms: None Reported Past Surgical History: Heart Catheterization With Stent, Hernia Repair, Joint Replacement, Orthopedic Surgery Additional Past Surgical History / Comment(s): lt Fem-pop bypass, christy carotid endarterectomy, christy knee arthroscopy, rt hip replacement, one cardiact stent Past Anesthesia/Blood Transfusion Reactions: No Reported Reaction Date of Last Stent Placement:: 08/2017 Past Psychological History: No Psychological Hx Reported Smoking Status: Former smoker Past Alcohol Use History: Daily Past Drug Use History: None Reported - Past Family History Father Family Medical History: Cancer Additional Family Medical History / Comment(s): lung Brother(s) Family Medical History: Cancer General Exam - General Exam Comments Initial Comments: Physical Exam GENERAL: Patient is well-developed and well-nourished. Patient is nontoxic and well-hydrated and is in no distress. HENT: Normocephalic, Atraumatic. EYES: PERRL, EOMI PULMONARY: Unlabored respirations. 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 Patient agreeable to this plan Disposition Clinical Impression: NSTEMI (non-ST elevated myocardial infarction) Disposition: ADMITTED IP TO THIS HOSP Condition: Serious Is patient prescribed a controlled substance at d/c from ED?: No Referrals: Jacey Mcgrath DO [Primary Care Provider] - 1-2 days
[2020-04-21 01:33] LABS: ALT 76 U/L (4-49); AST 63 U/L (17-59); African American GFR (CKD) >90 (>60 ml/min/1.73 sqM); Albumin 4.4 g/dL (3.5-5.0); Alkaline Phosphatase 70 U/L (38-126); Anion Gap 10 mmol/L; Blood Urea Nitrogen 12 mg/dL (9-20); Calcium 9.4 mg/dL (8.4-10.2); Carbon Dioxide 21 mmol/L (22-30); Chloride 105 mmol/L (98-107); Glucose 115 mg/dL (74-99); Non-African American GFR(CKD) >90 (>60 ml/min/1.73 sqM); Potassium 4.2 mmol/L (3.5-5.1); Sodium 136 mmol/L (137-145); Total Bilirubin 0.4 mg/dL (0.2-1.3); Total Protein 8.1 g/dL (6.3-8.2)
[2020-04-21] MEDS: HEPARIN SOD,PORK IN 0.45% NACL 25,000 UNIT in 0.45% NACL 1 250ML.BAG IV SCH (01:53)
[2020-04-21] MEDS ORDERED: HYDROcodone/APAP 10-325MG 1 EACH TAB PO ONE (06:11)
[2020-04-21] MEDS ORDERED: SODIUM CHLORIDE 0.9% 1,000 ML in EMPTY BAG 1 BAG IV ONE (09:08)
[2020-04-21] MEDS ORDERED: ATORVASTATIN 80 MG TAB PO STA (09:08)
[2020-04-21] MEDS ORDERED: ALPRAZolam 0.25 MG TAB PO PRN (09:08)
[2020-04-21] MEDS ORDERED: ASPIRIN 325 MG TAB PO STA (09:08)
[2020-04-21] MEDS ORDERED: ALPRAZolam 0.5 MG TAB PO PRN (09:08)
[2020-04-21] MEDS ORDERED: IPRATROPIUM 0.5 MG/2.5 ML NEBU INHALATION PRN (09:30)
[2020-04-21] MEDS ORDERED: EPINEPHrine 1 MG/ML 1 ML AMP IM PRN (09:30)
[2020-04-21] MEDS: NITROGLYCERIN OINT 1 INCH/GM PACKET TOPICAL SCH ×3 (09:34→23:44)
[2020-04-21 09:46] LABS: Glucose,Whole Blood 97 mg/dL (75-99)
--- NOTE | 2020-04-21 10:59 | CONS ---
CONSULTATION Mr. Bowen is a 64-year-old male with a known history of coronary disease, history of peripheral disease, hypertension, who presented to the hospital with symptoms of chest discomfort. He has been working on his garage and has been having discomfort in the chest radiating to the left shoulder on and off and because of that, came into the emergency room to [facility] and subsequently transferred to [facility]. The patient has a known history of coronary artery disease, has underwent stenting of the left circumflex at [facility] in 2018, has underwent revascularization of lower extremities by Dr. Teague and a prior bilateral endarterectomy, one of them was done by Dr. Quintanilla. He is followed by Dr. Trejo on a regular basis. He denies any recent episode of chest discomfort until this time. He denies any change in his breathing. He denies any dizziness, palpitation. No syncope. No peripheral edema. His intermittent claudication has improved. His coronary risk factors are remarkable for history of hypertension, hyperlipidemia. He has stopped smoking over 9 years ago. MEDICATION: Include aspirin, Lipitor 80 mg daily, Atrovent, Cozaar 25 mg daily, Xarelto 2.5 mg twice a day, and amlodipine 10 mg daily. REVIEW OF SYSTEMS: RESPIRATORY SYSTEM: He has no recent wheezing. No cough. No history of documented obstructive lung disease. GI SYSTEM: No recent GI bleeding, no peptic ulcer disease. SYSTEM: No dysuria, no hematuria. NERVOUS SYSTEM: No stroke or seizure. PHYSICAL EXAMINATION: A 64-year-old male, alert, oriented, in no apparent distress. Blood pressure 127/70 with a heart in the 70s. HEAD: Normocephalic. EYES: Sclerae nonicteric. NECK: Good upstroke, no bruit, no jugular venous distention. LUNGS: Clear to auscultation. HEART: Regular rate and rhythm, S1, S2. No S3 with systolic murmur at the base. No diastolic murmur, no rub. ABDOMEN: Soft, nontender, positive bowel sounds, no organomegaly. EXTREMITIES: No edema, decreased distal pulses. LAB DATA: Revealed a troponin 0.152, 0.339 and 0.549. AST of 63, ALT of 76. BUN and creatinine 12 and 0.79, potassium 4.2, hemoglobin of 13.4. EKG revealed a sinus mechanism, SR prime, otherwise no acute ST-segment changes. IMPRESSION: 1. Chest discomfort with evidence of non ST-segment elevation myocardial infarction in a patient with known history of coronary disease. 2. History of peripheral vascular disease. 3. Hypertension. 4. Hyperlipidemia. 5. Status post carotid endarterectomy. RECOMMENDATION: From the cardiac standpoint, the patient had an echocardiogram on March [address] Trejo that showed a preserved ventricular size systolic function with mild mitral and tricuspid regurgitation. I would recommend to proceed with coronary angiography to assess his status and guide his treatment. The rationale behind the procedures, its risks and complication were discussed with the patient who is in full understanding and agreement. Thank you for this consult. We will follow with you. MMODL / IJN: [id number] /
[2020-04-21] MEDS: HYDROcodone/APAP 10-325MG 1 EACH TAB PO PRN ×3 (11:47→21:50)
--- NOTE | 2020-04-21 12:25 | P.HPIM ---
History of Present Illness Patient is a 64-year-old pleasant male came in with compensative from chest pain be started as today lasted for 20 minutes severe chest pain pressure-like radiating to the left arm while he was working in her garage associated with s ome shortness of breath denied any diaphoresis. Patient did have a peripheral vascular disease for which the patient underwent leave escalation of lower extremities as well as bilateral carotid endarterectomy for cerebrovascular disease. Patient did had coronary artery disease with stenting in the past. Patient used to be a smoker quit smoking many years ago. Patient is found to have mildly elevated troponins with incremental trend. Patient is presently on IV heparin possibly will undergo cardiac catheterization and the today and tomorrow Review of Systems REVIEW OF SYSTEMS: CONSTITUTIONAL: No fever, no malaise, no fatigue. HEENT: No recent visual problems or hearing problems. Denied any sore throat. CARDIOVASCULAR: No orthopnea, PND, no palpitations, no syncope. PULMONARY: No shortness of breath, no cough, no hemoptysis. GASTROINTESTINAL: No diarrhea, no nausea, no vomiting, no abdominal pain. NEUROLOGICAL: No headaches, no weakness, no numbness. HEMATOLOGICAL: Denies any bleeding or petechiae. GENITOURINARY: Denies any burning micturition, frequency, or urgency. MUSCULOSKELETAL/RHEUMATOLOGICAL: Denies any joint pain, swelling, or any muscle pain. ENDOCRINE: Denies any polyuria or polydipsia. The rest of the 14-point review of systems is negative. Past Medical History Past Medical History: Coronary Artery Disease (CAD), Deep Vein Thrombosis (DVT), Hyperlipidemia, Hypertension, Osteoarthritis (OA), Vascular Disorder Additional Past Medical History / Comment(s): dvt left leg, History of Any Multi-Drug Resistant Organisms: None Reported Past Surgical History: Heart Catheterization With Stent, Hernia Repair, Joint Replacement, Orthopedic Surgery Additional Past Surgical History / Comment(s): lt Fem-pop bypass, christy carotid endarterectomy, christy knee arthroscopy, rt hip replacement, one cardiact stent Past Anesthesia/Blood Transfusion Reactions: No Reported Reaction Date of Last Stent Placement:: 08/2017 Past Psychological History: No Psychological Hx Reported Smoking Status: Former smoker Past Alcohol Use History: Daily Past Drug Use History: None Reported - Past Family History Father Family Medical History: Cancer Additional Family Medical History / Comment(s): lung Brother(s) Family Medical History: Cancer Medications and Allergies Home Medications Medication Instructions Recorded Confirmed Type Aspirin 81 mg PO DAILY 04/21/15 04/21/20 History Gabapentin [Neurontin] 600 mg PO DAILY 04/21/15 04/21/20 History HYDROcodone/APAP 10-325MG [[place] 1 tab PO QID PRN 04/21/15 04/21/20 History 10-325] Ipratropium [place] [Atrovent Hfa] 1 puff INHALATION RT-DAILY PRN 04/21/15 04/21/20 History amLODIPine [Norvasc] 10 mg PO DAILY 04/21/15 04/21/20 History EPINEPHrine (Auto Inject) [Epipen] 0.3 mg IM ONCE PRN 05/25/19 04/21/20 History Losartan Potassium [Cozaar] 25 mg PO DAILY 06/13/19 04/21/20 History Atorvastatin [Lipitor] 80 mg PO HS 04/21/20 04/21/20 History Rivaroxaban [Xarelto] 2.5 mg PO BID 04/21/20 04/21/20 History Allergies Allergy/AdvReac Type Severity Reaction Status Date / Time venom-honey bee Allergy Anaphylaxis Verified 04/21/20 06:27 [bee venom (honey bee)] Physical Exam Vitals: Vital Signs Temp Pulse Pulse Resp BP Pulse Ox 04/21/20 11:40 66 18 144/80 96 04/21/20 08:30 70 19 127/75 95 04/21/20 06:00 98.3 F 66 18 155/87 96 04/21/20 04:00 75 16 135/74 04/21/20 03:00 78 16 04/21/20 02:00 73 16 101/64 04/21/20 01:22 82 04/21/20 01:00 81 16 128/71 99 04/21/20 00:24 98.1 F 82 18 141/71 97 Intake and Output 04/20/20 04/21/20 04/21/20 22:59 06:59 14:59 Intake Total 108.808 Balance 108.808 Intake: Intake, IV Titration 108.808 Amount Heparin Sod,Pork in 0.45% 108.808 NaCl 25,000 unit In 0.45 % NaCl 1 250ml.bag @ 10. 75 UNITS/KG/HR 9.996 mls/ hr IV .Q24H ANDER Rx#: [id number] Other: Weight 92.986 kg PHYSICAL EXAMINATION: GENERAL: The patient is alert and oriented x3, not in any acute distress. Well developed, well nourished. HEENT: Pupils are round and equally reacting to light. EOMI. No scleral icterus. No conjunctival pallor. Normocephalic, atraumatic. No pharyngeal erythema. No thyromegaly. CARDIOVASCULAR: S1 and S2 present. No murmurs, rubs, or gallops. PULMONARY: Chest is clear to auscultation, no wheezing or crackles. ABDOMEN: Soft, nontender, nondistended, normoactive bowel sounds. No palpable organomegaly. MUSCULOSKELETAL: No joint swelling or deformity. EXTREMITIES: No cyanosis, clubbing, or pedal edema. NEUROLOGICAL: Gross neurological examination did not reveal any focal deficits. SKIN: No rashes. Results CBC & Chem 7: 04/21/20 00:37 04/21/20 00:37 Labs: Abnormal Lab Results - Last 24 Hours (Table) 04/21/20 04/21/20 04/21/20 Range/Units 00:37 00:37 00:37 RBC 4.00 L (4.30-5.90) m/uL APTT 73.0 H (22.0-30.0) sec Sodium 136 L (137-145) mmol/L Carbon Dioxide 21 L (22-30) mmol/L Glucose 115 H (74-99) mg/dL AST 63 H (17-59) U/L ALT 76 H (4-49) U/L Troponin I (0.000-0.034) ng/mL 04/21/20 04/21/20 04/21/20 Range/Units 00:37 03:31 07:37 RBC (4.30-5.90) m/uL APTT 34.2 H (22.0-30.0) sec Sodium (137-145) mmol/L Carbon Dioxide (22-30) mmol/L Glucose (74-99) mg/dL AST (17-59) U/L ALT (4-49) U/L Troponin I 0.152 H* 0.339 H* (0.000-0.034) ng/mL 04/21/20 Range/Units 07:37 RBC (4.30-5.90) m/uL APTT (22.0-30.0) sec Sodium (137-145) mmol/L Carbon Dioxide (22-30) mmol/L Glucose (74-99) mg/dL AST (17-59) U/L ALT (4-49) U/L Troponin I 0.549 H* (0.000-0.034) ng/mL Assessment and Plan Plan: Possible non-ST elevation myocardial infarction: Patient is already on heparin antiplatelet therapy and a statin along with beta gila patient will undergo coronary angiography most probably today -Peripheral vascular disease -Coronary vascular disease -Hypertension -hyperlipidemia -History of DVT in the past, patient is on anticoagulation with Xarelto at home.
[2020-04-21] MEDS ORDERED: LIDOCAINE 1% INJ 10MG/ML (20 ML MDV) ONE (13:16)
[2020-04-21] MEDS ORDERED: MIDAZOLAM 2 MG/2 ML VIAL IV ONE (13:23)
[2020-04-21] MEDS ORDERED: LIDOCAINE 1% INJ 10MG/ML (20 ML MDV) SQ ONE (13:25)
[2020-04-21] MEDS ORDERED: IV FLUID CONTINUATION 800 ML IV ONE (13:29)
[2020-04-21] MEDS ORDERED: IOPAMIDOL-370 125ML BTL INJ ONE (13:38)
[2020-04-21] MEDS ORDERED: RX INFO: IV CONTRAST WAS GIVEN 1 EACH MISC MISCELLANE PRN (13:42)
[2020-04-21] MEDS ORDERED: SODIUM CHLORIDE 0.9% 1,000 ML IV SCH (13:45)
--- NOTE | 2020-04-21 14:35 | CC ---
CARDIAC CATHETERIZATION REPORT DATE OF SERVICE: 04/21/2020 PERFORMING PHYSICIAN: Randy Trejo MD. PROCEDURE PERFORMED: 1. Selective right and left coronary angiogram. 2. Left heart catheterization. INDICATION: This is a 64-year-old gentleman with coronary artery disease and prior stenting of the left circumflex, was performed in [place] as well as peripheral arterial disease and prior revascularization, presented to the hospital with chest discomfort and abnormal cardiac enzymes concerning for acute coronary event. Because of that, a heart catheterization was advised. Right. APPROACH: Right radial artery the right common femoral artery. COMPLICATION: None. LEVEL OF SEDATION: Moderate with sedation length of 10 minutes. PROCEDURE DESCRIPTION: After obtaining informed consent, the patient was brought to the cardiac cardiac catheterization technician. The right common femoral artery was cannulated using micropuncture technique and a micropuncture wire passed easily then I placed a 6-Yoruba sheath in the right radial artery. Artery at the right common femoral artery. After that I did selective right and left coronary angiogram using JR4 and JL3.5 with a JR4 and JL4 catheters. Left heart catheterization was performed using 6-Yoruba pigtail catheter. The procedure was completed without any complication. SELECTIVE CORONARY ANGIOGRAM: 1. The right coronary artery is a large caliber for the large caliber vessel and is a moderate caliber vessel. It is a nondominant vessel. The vessel is a dominant vessel. The RCA has mild to moderate disease only. Distally bifurcates into PDA and PLV branches both appeared to be angiographically normal. 2. The left main is an is has is calcified with mild disease only. It bifurcates into LCX and LAD. 3. The LCX is a large caliber vessel it is a nondominant vessel. The proximal LCX is stented with mild to moderate in-stent restenosis. The mid left circumflex appeared to be angiographically normal and the circumflex distally appeared to be normal. 4. The LAD, the proximal LAD appeared to be angiographically normal. The mid LAD has mild disease only and the LAD distally appeared to be normal. The proximal portion gives rise into a large diagonal branch which seems to be angiographically normal. 5. HEMODYNAMICS: The LVDP was 10 mmHg without significant gradient across the aortic valve. CONCLUSION: 1. Calcified right and left coronary system. 2. Calcified right and left coronary systems. 3. Mild to moderate in-stent restenosis involving the proximal left circumflex. 4. Normal left ventricular end-diastolic pressure. 5. Postprocedure management #1 aggressive cholesterol control. 6. Risk factor modifications. 7. Follow up with the patient. FALLON / LEÓNN: [id number] /
--- NOTE | 2020-04-21 14:44 | LTR ---
DATE OF SERVICE: 04/21/2020 RE: Allen Bowen Dear Dr. Finn: Mr. Allen Cunningham presented, was admitted to [facility] with chest discomfort and ruled in for acute non ST elevation RI. He underwent a heart catheterization was found to have patent stent in the left circumflex with mild in-stent restenosis. No obstructive coronary artery disease require percutaneous coronary intervention pound study. No obstructive coronary artery disease require percutaneous coronary intervention. With the above I recommended maximize medical treatment along with aggressive risk factors modifications and follow up with the patient. Sincerely, Randy Trejo MD. MMRENATAL / LEÓNN: [id number] /
[2020-04-21 15:36] VITALS: RESP 16
[2020-04-21] MEDS ORDERED: ATORVASTATIN 80 MG TAB PO SCH (21:00)
[2020-04-21] MEDS ORDERED: ATORVASTATIN 40 MG TAB PO SCH (21:00)
[2020-04-21] MEDS: METOPROLOL TARTRATE 25 MG TAB PO SCH (21:50)
[2020-04-22] MEDS: NITROGLYCERIN OINT 1 INCH/GM PACKET TOPICAL SCH (08:53)
[2020-04-22] MEDS: HEPARIN SOD,PORK IN 0.45% NACL 25,000 UNIT in 0.45% NACL 1 250ML.BAG IV SCH (08:53)
[2020-04-22] MEDS: HYDROcodone/APAP 10-325MG 1 EACH TAB PO PRN ×2 (08:54→14:23)
[2020-04-22] MEDS: METOPROLOL TARTRATE 25 MG TAB PO SCH (08:55)
[2020-04-22] MEDS ORDERED: amLODIPine 10 MG TAB PO SCH (09:00)
[2020-04-22] MEDS ORDERED: ASPIRIN 325 MG TAB PO SCH (09:00)
[2020-04-22] MEDS ORDERED: ASPIRIN 81 MG PO SCH (09:00)
[2020-04-22] MEDS ORDERED: LOSARTAN 25 MG TAB PO SCH (09:00)
[2020-04-22] MEDS ORDERED: GABAPENTIN 300 MG CAP PO SCH (09:00)
[2020-04-22 10:05] LABS: Basophils # (A) 0.1 k/uL (0-0.2); Basophils % (A) 1 %; Eosinophils # (A) 0.3 k/uL (0-0.7); Eosinophils % (A) 4 %; HCT 43.7 % (39.0-53.0); HGB 13.9 gm/dL (13.0-17.5); Lymphocytes # (A) 1.5 k/uL (1.0-4.8); Lymphocytes % (A) 23 %; MCH 32.3 pg (25.0-35.0); MCHC 31.8 g/dL (31.0-37.0); MCV 101.3 fL (80.0-100.0); Macrocytosis Slight; Mean Platelet Volume 7.1; Monocytes # (A) 0.5 k/uL (0-1.0); Monocytes % (A) 7 %; Neutrophils # (A) 4.2 k/uL (1.3-7.7); Neutrophils % (A) 63 %; Platelet Count 250 k/uL (150-450); RBC 4.32 m/uL (4.30-5.90); RDW 13.5 % (11.5-15.5); WBC 6.7 k/uL (3.8-10.6)
[2020-04-22 10:25] LABS: African American GFR (CKD) >90 (>60 ml/min/1.73 sqM); Anion Gap 7 mmol/L; Blood Urea Nitrogen 12 mg/dL (9-20); Calcium 9.2 mg/dL (8.4-10.2); Carbon Dioxide 26 mmol/L (22-30); Chloride 106 mmol/L (98-107); Cholesterol 140 mg/dL (<200); Glucose 105 mg/dL (74-99); HDL Cholesterol 52 mg/dL (40-60); LDL Cholesterol,Calculated 71 mg/dL (0-99); Non-African American GFR(CKD) >90 (>60 ml/min/1.73 sqM); Potassium 4.5 mmol/L (3.5-5.1); Sodium 139 mmol/L (137-145); Triglycerides 83 mg/dL (<150)
[2020-04-22] MEDS ORDERED: BUDESONIDE 0.5 MG/2 ML NEBU INHALATION SCH (12:44)
--- NOTE | 2020-04-22 13:04 | P.PN ---
Subjective Progress Note Date: 04/22/20 HISTORY OF PRESENT ILLNESS: Patient is status post cardiac cath with Dr. Trejo revealing calcified right and left coronary systems and [id number] in- stent restenosis involving the proximal left circumflex. Patient denies chest pain or pressure. He denies shortness of breath. Vital signs are stable. He is hoping to be discharged home today. PHYSICAL EXAM: VITAL SIGNS: Reviewed. GENERAL: Well-developed in no acute distress. NECK: Supple. No JVD or thyromegaly LUNGS: Respirations even and unlabored. Lungs essentially clear to auscultation bilaterally. HEART: Regular rate and rhythm. S1 and S2 heard. EXTREMITIES: Normal range of motion. No clubbing or cyanosis. Peripheral pulses intact. No lower extremity edema. Right groin cath site with pulse present. No hematoma noted. ASSESSMENT: Non-STEMI, s/p cardiac cath Coronary artery disease with previous PCI to proximal left circumflex History of peripheral vascular disease Hypertension Hyperlipidemia History of carotid endarterectomy PLAN: Continue current cardiac medications. Patient is stable for discharge home today from a cardiac perspective. He is to follow up on an outpatient basis with Dr. Trejo. Nurse practitioner note has been reviewed by physician. Signing provider agrees with the documented findings, assessment, and plan of care. Objective - Vital Signs Vital signs: Vital Signs Temp 98.0 F 04/22/20 03:57 Pulse 58 L 04/22/20 04:00 Resp 16 04/22/20 04:00 BP 139/67 04/22/20 03:57 Pulse Ox 95 04/22/20 03:57 Intake & Output 04/21/20 04/22/20 04/22/20 18:59 06:59 18:59 Intake Total 258.808 240 240 Output Total 260 Balance 258.808 -20 240 Weight 92.4 kg Intake: IV 150 Intake, IV Titration 108.808 Amount Heparin Sod,Pork in 0.45% 108.808 NaCl 25,000 unit In 0.45 % NaCl 1 250ml.bag @ 10. 75 UNITS/KG/HR 9.996 mls/ hr IV .Q24H ANDER Rx#: [id number] Oral 240 240 Output: Urine 260 Other: Voiding Method Toilet # Voids 1 - Labs CBC & Chem 7: 04/22/20 08:01 11/17/20 08:01 Labs: Abnormal Lab Results - Last 24 Hours (Table) 04/22/20 04/22/20 Range/Units 08:01 08:01 MCV 101.3 H (80.0-100.0) fL Glucose 105 H (74-99) mg/dL
[2020-04-22 13:21] VITALS: BP 136/72; TEMP 98.3
--- NOTE | 2020-04-22 13:42 | P.DS ---
Providers Date of admission: 04/21/20 09:43 Attending physician: Ade Lyon Consults: 04/21/20 01:17 Consult Physician Urgent Consulting Provider: [facility] Consult Reason/Comments: NSTEMI Do you want consulting provider notified?: Yes, Notify in am Primary care physician: Jacey Mcgrath [facility] Course: 64-year-old pleasant male is admitted for a chest pain and mildly elevated troponins patient underwent cardiac catheterization which showed calcified right and the left coronary system and mild to moderate assistance to restenosis involving the proximal left circumflex. Patient is clinically doing well is still comparing of some shortness of breath which appeared to be secondary to COPD patient will be given inhalation as steroid treatment and patient will be discharged on Symbicort patient does have mild expiratory wheezing on exam. PHYSICAL EXAMINATION: GENERAL: The patient is alert and oriented x3, not in any acute distress. Obese HEENT: Pupils are round and equally reacting to light. EOMI. No scleral icterus. No conjunctival pallor. Normocephalic, atraumatic. No pharyngeal erythema. No thyromegaly. CARDIOVASCULAR: S1 and S2 present. No murmurs, rubs, or gallops. PULMONARY: Mild expiratory wheezing on exam ABDOMEN: Soft, nontender, nondistended, normoactive bowel sounds. No palpable organomegaly. MUSCULOSKELETAL: No joint swelling or deformity. EXTREMITIES: No cyanosis, clubbing, or pedal edema. NEUROLOGICAL: Gross neurological examination did not reveal any focal deficits. SKIN: No rashes. Assessment and Plan Plan: Chest pain with elevated troponins: Cardiac catheterization as mentioned above -Peripheral vascular disease -Coronary vascular disease -Hypertension -hyperlipidemia -History of DVT in the past Patient Condition at Discharge: Serious Plan - Discharge Summary Discharge Rx Participant: Yes New Discharge Prescriptions: New Metoprolol Tartrate [Lopressor] 25 mg PO BID #60 tab Nitroglycerin Sl Tabs [Nitrostat] 0.4 mg SUBLINGUAL Q5M PRN #60 tab PRN Reason: Chest Pain Budesonide-Formot 160-4.5 Mcg [Symbicort 160-4.5 Mcg Inhaler] 2 puff INHALATION BID #1 inhaler Continue amLODIPine [Norvasc] 10 mg PO DAILY Ipratropium [place] [Atrovent Hfa] 1 puff INHALATION RT-DAILY PRN PRN Reason: sob HYDROcodone/APAP 10-325MG [[place] 10-325] 1 tab PO QID PRN PRN Reason: Pain Gabapentin [Neurontin] 600 mg PO DAILY Aspirin 81 mg PO DAILY EPINEPHrine (Auto Inject) [Epipen] 0.3 mg IM ONCE PRN PRN Reason: Anaphylaxis Losartan Potassium [Cozaar] 25 mg PO DAILY Atorvastatin [Lipitor] 80 mg PO HS Rivaroxaban [Xarelto] 2.5 mg PO BID Discharge Medication List Aspirin 81 mg PO DAILY 04/21/15 [History] Gabapentin [Neurontin] 600 mg PO DAILY 04/21/15 [History] HYDROcodone/APAP 10-325MG [[place] 10-325] 1 tab PO QID PRN 04/21/15 [History] Ipratropium [place] [Atrovent Hfa] 1 puff INHALATION RT-DAILY PRN 04/21/15 [History] amLODIPine [Norvasc] 10 mg PO DAILY 04/21/15 [History] EPINEPHrine (Auto Inject) [Epipen] 0.3 mg IM ONCE PRN 05/25/19 [History] Losartan Potassium [Cozaar] 25 mg PO DAILY 06/13/19 [History] Atorvastatin [Lipitor] 80 mg PO HS 04/21/20 [History] Rivaroxaban [Xarelto] 2.5 mg PO BID 04/21/20 [History] Budesonide-Formot 160-4.5 Mcg [Symbicort 160-4.5 Mcg Inhaler] 2 puff INHALATION BID #1 inhaler 04/22/20 [Rx] Metoprolol Tartrate [Lopressor] 25 mg PO BID #60 tab 04/22/20 [Rx] Nitroglycerin Sl Tabs [Nitrostat] 0.4 mg SUBLINGUAL Q5M PRN #60 tab 04/22/20 [Rx] Follow up Appointment(s)/Referral(s): Randy Trejo MD [STAFF PHYSICIAN] - 05/06/20 1:15 pm Jacey Mcgrath DO [Primary Care Provider] - 04/24/20 10:30 am Patient Instructions/Handouts: *Surgery [facility] - After Heart Catheterization - [employer] Management Keyholder Instructions Discharge Disposition: HOME SELF-CARE
[2020-04-22 15:27] VITALS: PULSE 84
[2020-04-22] MEDS ORDERED: RIVAROXABAN 2.5 MG TABLET PO SCH (21:00)
== END 2020-04-22 16:35 | disposition home or self-care (01) | DRG 281 ==
LOC: EC 00:21 → 3SCARD 01:17 → OBSVTOIN 09:43 → 3SCARD 14:41
PROVIDERS: ADMIT Hospitalist; ATTEND Hospitalist
PROC: B2111ZZ Fluoroscopy of Multiple Coronary Arteries using Low Osmolar Contrast (ICD-10-PCS; principal; 2020-04-21 11:45)
PROC: 4A023N7 Measurement of Cardiac Sampling and Pressure, Left Heart, Percutaneous Approach (ICD-10-PCS; principal; 2020-04-21 11:45)
DX: I21.4 Non-ST elevation (NSTEMI) myocardial infarction (principal); T82.855A Stenosis of coronary artery stent, initial encounter; I70.219 Atherosclerosis of native arteries of extremities with intermittent claudication, unspecified extremity; I25.10 Atherosclerotic heart disease of native coronary artery without angina pectoris; I10 Essential (primary) hypertension; E78.5 Hyperlipidemia, unspecified; Z91.030 Bee allergy status; M19.90 Unspecified osteoarthritis, unspecified site; I08.1 Rheumatic disorders of both mitral and tricuspid valves; I25.84 Coronary atherosclerosis due to calcified coronary lesion; Z79.01 Long term (current) use of anticoagulants; Z86.718 Personal history of other venous thrombosis and embolism; Z79.82 Long term (current) use of aspirin; Z79.899 Other long term (current) drug therapy; Z95.5 Presence of coronary angioplasty implant and graft; Z95.828 Presence of other vascular implants and grafts; Z96.641 Presence of right artificial hip joint; Z98.890 Other specified postprocedural states; Z87.891 Personal history of nicotine dependence; Z80.9 Family history of malignant neoplasm, unspecified
CPT/HCPCS: 36415; 80048; 80053; 80061; 83880; 84484; 85025; 85610; 85730; 93005; 93458; 94640; 96361; 96365; 96366; 99285

== ENCOUNTER → 2020-08-14 | Outpatient (CLI) | payer MEDICARE, OTHER ==
--- NOTE | 2020-08-14 16:16 | CT ---
EXAMINATION TYPE: CT angio abdomen pelvis DATE OF EXAM: 08/14/2020 COMPARISON: 05/10/2019 HISTORY: 64-year-old male I74 oh .9, embolism, thrombosis TECHNIQUE: Contiguous axial scanning of the abdomen and pelvis before and after administration of 100 ml Isovue 370 IV contrast. Coronal and sagittal reconstructions performed. 3-D reconstructions gene rated on a dedicated independent workstation. CT DLP: 1590 mGycm Automated exposure control for dose reduction was used. FINDINGS: Heart normal size without pericardial effusion. Some strandy and hazy bibasilar atelectasis in the vi sualized lower lungs. These phases of imaging show no focal liver lesion or biliary ductal dilatation. A couple small dependent gallstones measuring up to 6 mm. No abnormal gallbladder distention. Adrenal glands, left kidney, spleen with a posterior splenule, and pancreas appear within normal limi ts. 7 mm cortical hypodensity lower pole right kidney. No dilated small bowel, free fluid, or free air. Stable prominent left periaortic retroperitoneal lymph nodes measuring up to 8 mm. No mesenteric lymp hadenopathy. Small fatty umbilical hernia. Normal appendix. Mild stool burden. Sigmoid diverticulosis. No pericolonic inflammatory change. Bladder urine distended. Prostate gland mildly enlarged at 4.1 cm wide. Allowing for metal artifact f rom the patient's right hip total arthroplasty, no abnormal fluid collection in the pelvis or pelvic lymphadenopathy. Moderate atherosclerotic calcifications abdominal aorta moderate to severe within the iliac arteries. Fusiform ectasia distal abdominal aorta are 2.8 cm, approximately stable. Surgical changes at the left inguinal region with occluded left superficial femoral artery stent. Pat ent bypass graft. Celiac axis and SMA are patent but with scattered mild atherosclerotic calcifications. Moderate metastatic calcifications and plaque at the bilateral renal arteries. Patent FANY is visualiz ed likely with some moderate narrowing at its origin. Diminutive and calcified external iliac arterie s on both sides with segmental areas of moderate to severe stenoses. Bones: Right hip total arthroplasty. Degenerative bridging ankylosis left SI joint. Moderate to advan mila degenerative disc disease L5-S1. Hypertrophic facet arthropathy mid to lower lumbar spine. Bilate ral L5 pars defects are demonstrated in Ba[place]rup's disease. IMPRESSION: 1. MODERATE ATHEROSCLEROTIC CHANGES THROUGHOUT THE ABDOMINAL AORTA WITH STABLE FUSIFORM ECTASIA DISTA LLY UP TO 2.8 CM. 2. SEGMENTAL MODERATE TO SEVERE ATHEROSCLEROTIC NARROWING THROUGHOUT THE BILATERAL EXTERNAL ILIAC ART ERIES. THE VISUALIZED PORTION OF THE PATIENT'S LEFT SUPERFICIAL FEMORAL ARTERY BYPASS GRAFT APPEARS P ATENT. THE PREVIOUS STENT WITHIN THE TE-MOAK ARTERY REMAINS CHRONICALLY OCCLUDED. 3. CHOLELITHIASIS. SIGMOID DIVERTICULOSIS.
== END ==
LOC: RADCTMAIN 13:06
PROVIDERS: ATTEND Surgery
DX: K57.30 Diverticulosis of large intestine without perforation or abscess without bleeding (principal); K80.20 Calculus of gallbladder without cholecystitis without obstruction; I70.0 Atherosclerosis of aorta; I70.8 Atherosclerosis of other arteries
CPT/HCPCS: 74174; Q9967

== ENCOUNTER → 2020-08-28 | Outpatient (CLI) | payer MEDICARE, OTHER ==
[2020-08-28 15:03] LABS: Basophils # (A) 0.1 k/uL (0-0.2); Basophils % (A) 1 %; Eosinophils # (A) 0.3 k/uL (0-0.7); Eosinophils % (A) 4 %; HCT 42.9 % (39.0-53.0); HGB 13.8 gm/dL (13.0-17.5); Lymphocytes # (A) 1.5 k/uL (1.0-4.8); Lymphocytes % (A) 20 %; MCH 31.5 pg (25.0-35.0); MCHC 32.1 g/dL (31.0-37.0); MCV 97.9 fL (80.0-100.0); Mean Platelet Volume 6.8; Monocytes # (A) 0.7 k/uL (0-1.0); Monocytes % (A) 10 %; Neutrophils # (A) 4.6 k/uL (1.3-7.7); Neutrophils % (A) 62 %; Platelet Count 233 k/uL (150-450); RBC 4.38 m/uL (4.30-5.90); RDW 13.9 % (11.5-15.5); WBC 7.4 k/uL (3.8-10.6)
[2020-08-28 15:06] LABS: African American GFR (CKD) >90 (>60 ml/min/1.73 sqM); Anion Gap 9 mmol/L; Blood Urea Nitrogen 13 mg/dL (9-20); Carbon Dioxide 28 mmol/L (22-30); Chloride 99 mmol/L (98-107); Non-African American GFR(CKD) >90 (>60 ml/min/1.73 sqM); Potassium 4.7 mmol/L (3.5-5.1); Sodium 136 mmol/L (137-145)
== END | disposition home or self-care (01) ==
LOC: LABPAT 14:32
PROVIDERS: ATTEND Surgery
DX: Z01.818 Encounter for other preprocedural examination (principal); I70.8 Atherosclerosis of other arteries
CPT/HCPCS: 80051; 82565; 84520; 85025

== ENCOUNTER → 2020-09-04 | Day surgery (SDC) | payer MEDICARE, OTHER ==
[2020-09-01 15:31] VITALS: BMI 30.2
[~2020-09-04] MED LIST changes: -ASPIRIN 325 MG TAB PO STA; +IOPAMIDOL-250 100ML BTL INTRAARTER ONE; +LIDOCAINE 1% INJ 10MG/ML (20 ML MDV) ONE; +LIDOCAINE 1% INJ 10MG/ML (20 ML MDV) SQ ONE; +MIDAZOLAM 2 MG/2 ML VIAL IV ONE; +SODIUM CHLORIDE 0.9% 1,000 ML IV ONE; +fentaNYL (PF) 50 MCG/ML 2 ML AMP IV ONE; +fentaNYL (PF) 50 MCG/ML 2 ML AMP ONE
[2020-09-04 09:50] VITALS: TEMP 97.3
--- NOTE | 2020-09-04 12:45 | P.OP ---
Date of Procedure: 09/04/20 Preoperative Diagnosis: #1: Decreased arterial flow left lower extremity is evidence on arterial Doppler study. #2: History of left femoral to tibial in situ vein bypass graft secondary to critical limb ischemia. 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 #2 AV fistula left popliteal artery to vein. Procedure(s) Performed: #1: All shunt guided cannulation right common femoral artery. #2 abdominal aortogram with iliofemoral, popliteal and tibial runoffs. Implants: None. Anesthesia: local (With moderate conscious sedation time, 62 minutes) Police Officer Crime Prevention #2: Allen Paredes Urine output (ml): 0 Pathology: none sent Condition: stable Disposition: no change Indications for Procedure: Patient is a 65-year-old male with a long-standing history of peripheral vascular disease who underwent left femoral to tibial in situ vein bypass graft approximately 34 years ago secondary to critical limb ischemia. In surveillance the patient's ankle brachial index has decreased and there is evidence of diminished flow into the graft. CT angiography demonstrated iliac artery stenosis and is felt that this stenosis is the cause of the patient's decreased arterial perfusion. Patient is now offered angiography and attempt at percutaneous intervention. Description of Procedure: Patient was brought the [facility] cardiac cath lab technologist. Both groins were sterilely prepped and draped in usual manner. The patient received 50 g of fentanyl and 1 mg of Versed for moderate conscious sedation purposes. 1% Xylocaine was utilized for local anesthesia tissues overlying the right femoral artery. Through this anesthetized area and with the aid of ultrasound in multipurpose needle was utilized candidate the artery. Once cannulated Softip guidewire is advanced. The needle was withdrawn and a 5-Beninese sheath was placed. 5-Beninese pigtail catheter was advanced over the guidewire and positioned at the L1-L2 interspace. Abdominal aortogram was performed. Once adequate films were obtained the catheter is pulled down the levator bifurcation and pelvic angiography in both the BRAZILIAN and CASPER positions was performed followed by femoral, popliteal and tibial arterial imaging. Findings: Abdominal aortogram demonstrates the aorta to be patent with very degrees of nonhealing medically stenosis identified between the lowest renal artery and the aortic bifurcation. There is no renal arteries bilaterally without evidence of significant renal artery occlusive disease. Left iliac angiography demonstrates the common iliac artery to be patent. The internal iliac is nearly completely occluded and is quite diminutive in size. The external iliac artery demonstrates significant origin stenosis. At the distal external iliac proximal common femoral artery there is approximate 70% stenosis over distance of approximately 1 cm. Left femoral angiogram demonstrates the common femoral to otherwise be patent. The femoral artery itself is occluded throughout its entire length. There is a femoral to posterior tibial in situ vein bypass graft which is widely patent and fills a normal-appearing left tibial artery with normal flow noted through the graft to the foot level. Right iliac angiography demonstrates the common and external iliac arteries to be patent with small areas of moderate stenosis noted. The internal iliac is never visualized and presumed occluded. The right common femoral and profundus appear essentially unremarkable. Right SFA is patent and does have a stent which is widely patent in the mid SFA level. The distal SFA/proximal popliteal artery has approximately 50% stenosis. There is a AV fistula between the popliteal artery and vein with retrograde flow into the venous system. The popliteal artery distal to this appears patent. The anterior tibial artery tibial peroneal trunk peroneal and posterior tibial arteries are patent however the peroneal artery does occlude at its mid-level. The posterior tibial and anterior tibial arteries provide direct flow onto the foot with the majority flow being identified through the posterior tibial artery.
--- NOTE | 2020-09-04 14:31 | IR ---
Fluoroscopy HISTORY: Pain in left leg 10.4 minutes fluoroscopy time supplied to the referring clinician. 193 intraoperative C-arm images d ocument the procedure. See dictated report from vascular surgery.
[2020-09-04 14:45] VITALS: RESP 16
[2020-09-04 14:57] VITALS: BP 137/65; PULSE 59
== END ==
LOC: CATHCVL 09:02
PROVIDERS: ATTEND Surgery
DX: I70.203 Unspecified atherosclerosis of native arteries of extremities, bilateral legs (principal); I77.0 Arteriovenous fistula, acquired; I70.8 Atherosclerosis of other arteries; I70.0 Atherosclerosis of aorta; I25.10 Atherosclerotic heart disease of native coronary artery without angina pectoris; R79.1 Abnormal coagulation profile; I10 Essential (primary) hypertension; E78.5 Hyperlipidemia, unspecified; F17.211 Nicotine dependence, cigarettes, in remission; I65.29 Occlusion and stenosis of unspecified carotid artery; Z95.820 Peripheral vascular angioplasty status with implants and grafts; Z79.899 Other long term (current) drug therapy; Z79.82 Long term (current) use of aspirin; Z79.891 Long term (current) use of opiate analgesic; Z98.890 Other specified postprocedural states; Z96.641 Presence of right artificial hip joint; Z87.442 Personal history of urinary calculi; Z80.9 Family history of malignant neoplasm, unspecified; Z82.49 Family history of ischemic heart disease and other diseases of the circulatory system
CPT/HCPCS: 36200; 75625; 75716; 76937; C1894 ×3; C1887; C1769 ×4; J2250; J2001; J3010; Q9966

== ENCOUNTER → 2020-09-18 | Day surgery (SDC) | payer MEDICARE, OTHER ==
[2020-09-15 12:44] VITALS: BMI 28.7
[~2020-09-18] MED LIST changes: +HEPARIN SODIUM 1,000 UN/ML (10ML VL) ONE; +HYDROcodone/APAP 10-325MG 1 EACH TAB PO ONE; -MIDAZOLAM 2 MG/2 ML VIAL IV ONE; +MORPHINE SULFATE 4 MG/ML SYRINGE IVP ONE; +MORPHINE SULFATE 4 MG/ML SYRINGE ONE; -SODIUM CHLORIDE 0.9% 1,000 ML in EMPTY BAG 1 BAG IV ONE; -fentaNYL (PF) 50 MCG/ML 2 ML AMP IV ONE
[2020-09-18 08:27] VITALS: RESP 18; TEMP 98.1
--- NOTE | 2020-09-18 12:19 | P.OP ---
Date of Procedure: 09/18/20 Preoperative Diagnosis: Hemodynamically significant left iliac artery stenosis threatening viability of a left femoral to tibial in situ vein bypass graft. Postoperative Diagnosis: Same plus left common femoral artery stenosis Procedure(s) Performed: #1: All shunt guided cannulation right common femoral artery. #2: Selective catheterization left common iliac artery. #3: Left iliofemoral angiography. #4: Balloon dilation left common iliac, external iliac and common femoral arterial segments. Implants: None. Anesthesia: local (With 2 mg of morphine sulfate for moderate conscious sedation purposes.) Surgeon: Allen Paredes Estimated Blood Loss (ml): 5 IV fluids (ml): 200 Urine output (ml): 0 Pathology: none sent Condition: stable Disposition: no change Indications for Procedure: Patient is a 63-year-old male with long history of tobacco use with secondary significant peripheral vascular disease status post left femoral to tibial in situ vein bypass graft for critical limb ischemia performed approximately 2 years prior. In routine's surveillance the patient's arterial Doppler demonstrated a significant drop in arterial perfusion. Doppler waveforms and pressures suggest a left iliac stenosis. The patient did undergo angiography which demonstrated a left iliac artery stenosis and patient is thus offered percutaneous repair. The procedure, risk and benefits were discussed with the patient. Patient wished to proceed. Description of Procedure: Patient brought to special procedure suite. Both groins were sterilely prepped and draped in usual manner. Utilizing ultrasound the right common femoral artery was identified. 1% Xylocaine was utilized for local anesthesia tissues overlying the right common femoral artery. Through this anesthetized area and with the aid of ultrasound a multipurpose needle was utilized cannulate the artery. Once cannulated Softip guidewire is advanced into the artery. The needle was withdrawn and a 6-[place] sheath was placed over the guidewire. The guidewire and dilator were withdrawn. A 0.035 inch guidewire was advanced into the distal abdominal aorta. Over the guidewire a Omni Flush catheter was advanced and utilized to select the origin of the left common iliac artery. Guidewire is advanced down into the bypass graft. The Omni Flush catheter was withdrawn. [place] sheath was exchanged for a 6-[place] up and over sheath. Once this was completed a left iliac angiogram was performed. This demonstrated a 60% stenosis of the left common femoral artery and approximately same degree of stenosis of the distal common and proximal external iliac artery segments. A 6 mm x 40 mm balloon dilation catheter was advanced over the guidewire and used to dilate the common femoral segment. It was thought this was appropriate because the patient had undergone previous bypass and this area had been endarterectomized and is thought that this was a stenosis due to post surgical inflammatory change. Completion angiogram demonstrated a good post balloon dilation response. The 6 mm balloon was exchanged for a 7 mm x 60 mm blue and dilation catheter and this was utilized to balloon dilate the external iliac and common iliac arterial segments. Completion angiogram demonstrated good post balloon dilation result. With the above findings noted the sheath was withdrawn. An 11 cm 6-[place] sheath was exchanged for the upper and over sheath. Angio-Seal was then utilized to complete closure of the arteriotomy site. Patient tolerated procedure well. Excellent pulse in the bypass graft was identified. Good femoral and popliteal pulses were identified on the right. Patient was taken to the outpatient area in satisfactory and stable condition. Total conscious sedation time 39 minutes.
[2020-09-18 15:52] VITALS: BP 104/56; PULSE 62
--- NOTE | 2020-09-18 16:49 | IR ---
Fluoroscopy HISTORY: Pain in left leg 4 minutes fluoroscopy time supplied to the referring clinician. 312 intraoperative C-arm images docu ment the procedure. See dictated report from vascular surgery.
== END ==
LOC: CATHCVL 07:49
PROVIDERS: ATTEND Surgery
DX: Z98.890 Other specified postprocedural states (principal); I65.29 Occlusion and stenosis of unspecified carotid artery; Z11.9 Encounter for screening for infectious and parasitic diseases, unspecified; I82.409 Acute embolism and thrombosis of unspecified deep veins of unspecified lower extremity; Z96.641 Presence of right artificial hip joint; Z87.891 Personal history of nicotine dependence; I25.10 Atherosclerotic heart disease of native coronary artery without angina pectoris; I10 Essential (primary) hypertension; E78.5 Hyperlipidemia, unspecified; Z87.442 Personal history of urinary calculi; Z82.49 Family history of ischemic heart disease and other diseases of the circulatory system; Z80.9 Family history of malignant neoplasm, unspecified; Z79.82 Long term (current) use of aspirin; Z79.891 Long term (current) use of opiate analgesic; Z79.899 Other long term (current) drug therapy
CPT/HCPCS: 37220; 87635; C1894 ×2; C1769 ×4; C1760; C1725; J2270; J2001; Q9966

== ENCOUNTER → 2020-10-02 | Outpatient (CLI) | payer MEDICARE, OTHER ==
--- NOTE | 2020-10-02 14:21 | US ---
EXAMINATION TYPE: US venous doppler duplex LE LT DATE OF EXAM: 10/02/2020 2:02 PM COMPARISON: NONE CLINICAL HISTORY: LLE DVT I82.402,R22.42 SWELLING,M79.662 PAIN. Recent arterial surgery. Hx vein str ipping. No redness. SIDE PERFORMED: Left TECHNIQUE: The lower extremity deep venous system is examined utilizing real time linear array sonog jason with graded compression, doppler sonography and color-flow sonography. VESSELS IMAGED: Common Femoral Vein Deep Femoral Vein Greater Saphenous Vein *- not seen Femoral Vein Popliteal Vein Small Saphenous Vein * Proximal Calf Veins (* superficial vessels) Left Leg: Negative for DVT IMPRESSION: Grayscale, color doppler, spectral doppler imaging performed of the deep veins of the lo wer extremities. There is normal flow, compressibility, vascular waveforms.
== END | disposition home or self-care (01) ==
LOC: RADUSWWP 13:39
PROVIDERS: ATTEND Surgery
DX: I82.402 Acute embolism and thrombosis of unspecified deep veins of left lower extremity (principal); M79.662 Pain in left lower leg; R22.42 Localized swelling, mass and lump, left lower limb

== ENCOUNTER 2021-02-03 00:13 | Inpatient (IN) | payer MEDICARE, OTHER ==
[2021-02-03] MEDS ORDERED: ASPIRIN 325 MG TAB PO STA (01:27)
--- NOTE | 2021-02-03 02:41 | ED ---
General Adult HPI - General Chief complaint: Shortness of Breath Stated complaint: covid+,stroke like symptoms Time Seen by Provider: 02/03/21 00:15 Source: patient, EMS Mode of arrival: EMS Limitations: physical limitation - History of Present Illness Initial comments: This patient is a 65-year-old man who arrives here is transferred from [facility]. The patient had gone there and evening to be evaluated for right upper extremity weakness that is been going on since around 2 PM. Patient is diagnosed with stroke. He was outside the window for TPA administration as well as being on Xarelto. While at the other facility patient found to be hypoxemic on room air. He does have known COVID-19 exposure, and was going to go for a test. While at the other facility he did test positive. Patient states that his breathing feels better on supplemental oxygen. He has had coughing. Intermittent fevers. -: hour(s) Location: right, upper extremity Radiation: non-radiation Consistency: constant Improves with: none Worsens with: none Associated Symptoms: cough, shortness of breath Treatments Prior to Arrival: other - Related Data Home Medications Medication Instructions Recorded Confirmed Aspirin 81 mg PO DAILY 04/21/15 09/18/20 Gabapentin [Neurontin] 600 mg PO BID 04/21/15 09/18/20 HYDROcodone/APAP 10-325MG [[place] 1 tab PO QID PRN 04/21/15 09/18/20 10-325] Ipratropium [place] [Atrovent Hfa] 1 puff INHALATION RT-DAILY PRN 04/21/15 09/18/20 amLODIPine [Norvasc] 10 mg PO QAM 04/21/15 09/15/20 EPINEPHrine (Auto Inject) [Epipen] 0.3 mg IM ONCE PRN 05/25/19 09/18/20 Atorvastatin [Lipitor] 80 mg PO HS 04/21/20 09/18/20 Rivaroxaban [Xarelto] 2.5 mg PO BID 04/21/20 09/18/20 Biotin 5 mg PO DAILY 09/01/20 09/18/20 Ezetimibe [Zetia] 10 mg PO DAILY 09/01/20 09/18/20 Losartan Potassium [Cozaar] 50 mg PO DAILY 09/01/20 09/18/20 Metoprolol Tartrate [Lopressor] 25 mg PO BID 09/01/20 09/18/20 Previous Rx's Medication Instructions Recorded Nitroglycerin Sl Tabs [Nitrostat] 0.4 mg SUBLINGUAL Q5M PRN #60 tab 04/22/20 Allergies Allergy/AdvReac Type Severity Reaction Status Date / Time venom-honey bee Allergy Anaphylaxis Verified 09/18/20 08:01 [bee venom (honey bee)] Review of Systems ROS Statement: Those systems with pertinent positive or pertinent negative responses have been documented in the HPI. ROS Other: All systems not noted in ROS Statement are negative. Constitutional: Reports: fever, chills, weakness Respiratory: Reports: cough, dyspnea Cardiovascular: Denies: chest pain, palpitations, edema, syncope Gastrointestinal: Denies: abdominal pain, vomiting, diarrhea Genitourinary: Denies: dysuria, hematuria Musculoskeletal: Denies: back pain Skin: Denies: rash Neurological: Reports: weakness (Right upper extremity). Denies: headache, numbness, paresthesias, confusion Past Medical History Past Medical History: Coronary Artery Disease (CAD), COPD, Deep Vein Thrombosis (DVT), Hyperlipidemia, Hypertension, Myocardial Infarction (MD), Osteoarthritis (OA), Vascular Disorder Additional Past Medical History / Comment(s): dvt left leg, Last Myocardial Infarction Date:: 04/20/20 History of Any Multi-Drug Resistant Organisms: None Reported Past Surgical History: Heart Catheterization With Stent, Hernia Repair, Joint Replacement, Orthopedic Surgery Additional Past Surgical History / Comment(s): abd. aortogram 09/04/20, lt Fem- pop bypass, and stent, christy carotid endarterectomy, christy knee arthroscopy, rt hip replacement, one cardiac stent Past Anesthesia/Blood Transfusion Reactions: No Reported Reaction Date of Last Stent Placement:: 08/2017 Past Psychological History: No Psychological Hx Reported Smoking Status: Former smoker Past Alcohol Use History: Heavy Past Drug Use History: None Reported - Past Family History Father Family Medical History: Cancer Additional Family Medical History / Comment(s): lung Brother(s) Family Medical History: Cancer General Exam Limitations: physical limitation General appearance: alert, in no apparent distress Head exam: Present: atraumatic, normocephalic Eye exam: Present: normal appearance. Absent: scleral icterus, conjunctival injection ENT exam: Present: mucous membranes dry Neck exam: Present: normal inspection, full ROM Respiratory exam: Present: rales. Absent: respiratory distress, wheezes, rhonchi, stridor, accessory muscle use Cardiovascular Exam: Present: regular rate, normal rhythm, normal heart sounds. Absent: systolic murmur, diastolic murmur, rubs, gallop GI/Abdominal exam: Present: soft. Absent: distended, tenderness, guarding, rebound, rigid, mass Extremities exam: Present: normal inspection, normal capillary refill. Absent: pedal edema, calf tenderness Back exam: Present: normal inspection Neurological exam: Present: alert, oriented X3, CN II-XII intact, motor sensory deficit (There is some is mild deficit of the right upper extremity versus the lateral side) Skin exam: Present: warm, dry, intact, normal color. Absent: rash Course Vital Signs 02/03/21 02/03/21 02/03/21 00:18 00:20 01:20 Temperature 97.7 F Pulse Rate 71 64 Respiratory 18 18 22 Rate Blood Pressure 131/85 115/66 O2 Sat by Pulse 97 92 L Oximetry Medical Decision Making - Medical Decision Making Patient is 65-year-old man transferred from outside hospital to have neurology consultation. The patient's record from the other facility shows that his head CT was read as negative. Labs are largely unremarkable other than testing positive for COVID-19 infection. Patient's saturations are normal on supplemental oxygen. Disposition Clinical Impression: Acute ischemic stroke, Right arm weakness, COVID-19 Disposition: ADMITTED IP TO THIS HOSP Condition: Fair Is patient prescribed a controlled substance at d/c from ED?: No Referrals: Jacey Mcgrath DO [Primary Care Provider] - 1-2 days
[2021-02-03] MEDS: SODIUM CHLORIDE 0.9% 1,000 ML IV SCH (03:27)
--- NOTE | 2021-02-03 06:16 | CT ---
EXAMINATION TYPE: CT brain wo con DATE OF EXAM: 02/03/2021 COMPARISON: None HISTORY: right sided weakness CT DLP: 1129.4 mGycm Automated exposure control for dose reduction was used. There is cerebral cortical atrophy. There is no mass effect nor midline shift. There is no sign of in tracranial hemorrhage. Calvarium is intact. Skull base is intact. There is some mucosal thickening ri ght maxillary sinus. IMPRESSION: Cerebral atrophy. No acute intracranial abnormality. Mild right maxillary sinusitis.
[2021-02-03] MEDS ORDERED: NITROGLYCERIN SL TABS 0.4 MG TAB SUBLINGUAL PRN (08:25)
[2021-02-03] MEDS: CHOLECALCIFEROL 25 MCG (1000 IU) TABLET PO SCH (08:56)
[2021-02-03] MEDS: METOPROLOL TARTRATE 25 MG TAB PO SCH ×2 (08:56→20:43)
[2021-02-03] MEDS: dexAMETHasone 2 MG TAB PO SCH (08:56)
[2021-02-03] MEDS: amLODIPine 10 MG TAB PO SCH (08:56)
[2021-02-03] MEDS: GABAPENTIN 300 MG CAP PO SCH ×2 (08:57→20:42)
[2021-02-03] MEDS ORDERED: RIVAROXABAN 2.5 MG TABLET PO SCH (09:00)
[2021-02-03] MEDS ORDERED: FAMOTIDINE 20 MG/2 ML VIAL IV SCH (09:00)
--- NOTE | 2021-02-03 09:15 | US ---
EXAMINATION TYPE: US carotid duplex BILAT DATE OF EXAM: 02/03/2021 COMPARISON: CT Brain, CTA neck 12/24/2011 CLINICAL HISTORY: stroke. Stroke. Previous smoker. Hypertension, hyperlipidemia. Patient was unclear with surgical history. Exam limited due to patient's heavy breathing. EXAM MEASUREMENTS: RIGHT: Peak Systolic Velocity (PSV) cm/sec ----- Right CCA: 97.5 ----- Right ICA: 93.6 ----- Right ECA: 88.3 ICA/CCA ratio: 1.0 RIGHT: End Diastole cm/sec ----- Right CCA: 27.6 ----- Right ICA: 18.5 ----- Right ECA: 15.7 LEFT: Peak Systolic Velocity (PSV) cm/sec ----- Left CCA: 16.9 ----- Left ICA: 46.0 ----- Left ECA: Not definitely seen. ICA/CCA ratio: 2.7 LEFT: End Diastole cm/sec ----- Left CCA: 0.0 ----- Left ICA: 18.9 ----- Left ECA: Not definitely seen. VERTEBRALS (direction of flow): Right Vertebral: Waveform is seen above and below the baseline. Left Vertebral: Antegrade Rhythm: Appears irregular within the left CCA. Plaque seen bilateral CCA and bilateral bulb. Great amount of plaque seen within left CCA. Left ECA w as not definitely seen. Left ICA/CCA ratio was 2.7. Waveforms very limited within left CCA. Limited c olor flow is seen within left CCA. Grayscale, color Doppler, spectral Doppler imaging performed of the carotid arteries. Waveform analys is does not show significant stenosis of the proximal internal carotid artery on the right. There are low-level internal echoes seen within the common carotid artery on the left, poor color flow and spe ctral waveform somewhat low peak systolic velocities within the internal carotid artery on the left IMPRESSION: Constellation of findings as described, limited evaluation of the left common carotid ar melly, consider carotid CTA or MRA for better evaluation NASCET criteria was used in interpretation of this exam? Criteria for Assigning % of Stenosis / Diameter reduction (Estimation based on the indirect measurements of the internal carotid artery velocities (ICA PSV). 1. Normal (no stenosis)=ICA PSV < 125 cm/s: ratio < 2.0: ICA EDV<40 cm/s. 2. Less than 50% stenosis=ICA PSV < 125 cm/s: ratio < 2.0: ICA EDV<40 cm/s. 3. 50 to 69% stenosis=ICA PSV of 125 to 230 cm/s: ration 2.0 ? 4.0: ICA EDV 40-100 cm/s. 4. Greater than 70% stenosis to near occlusion= ICA PSV > 230 cm/s: ratio > 4.0: ICA EDV > 100 cm/s. 5. Near occlusion= ICA PSV velocities may be low or undetectable: variable ratio and ICA EDV. 6. Total occlusion=unable to detect flow.
[2021-02-03] MEDS: HYDROcodone/APAP 10-325MG 1 EACH TAB PO PRN ×2 (10:26→16:25)
[2021-02-03] MEDS: EZETIMIBE 10 MG TAB PO SCH ×2 (10:27→10:28)
[2021-02-03 10:37] LABS: T4, Free (Free Thyroxine) 2.16 ng/dL (0.78-2.19)
[2021-02-03 11:26] LABS: ALT 93 U/L (4-49); AST 105 U/L (17-59); African American GFR (CKD) >90 (>60 ml/min/1.73 sqM); Albumin 3.2 g/dL (3.5-5.0); Alkaline Phosphatase 85 U/L (38-126); Anion Gap 12 mmol/L; Blood Urea Nitrogen 19 mg/dL (9-20); Calcium 8.8 mg/dL (8.4-10.2); Carbon Dioxide 19 mmol/L (22-30); Chloride 105 mmol/L (98-107); Glucose 168 mg/dL (74-99); Non-African American GFR(CKD) >90 (>60 ml/min/1.73 sqM); Potassium 4.4 mmol/L (3.5-5.1); Sodium 136 mmol/L (137-145); Total Bilirubin 0.6 mg/dL (0.2-1.3); Total Protein 6.7 g/dL (6.3-8.2)
--- NOTE | 2021-02-03 11:30 | P.CNNES ---
History of Present Illness Consult date: 02/03/21 Requesting physician: Reinier Salazar Reason for Consult: right arm weakness History of Present Illness: This is a 65-year-old gentleman with medical history of coronary artery disease status post stent, myocardial infarction, DVT (left leg) on Xarelto, hypertension, hyperlipidemia mild peripheral vascular disease who was transferred from outside facility ([facility]) on 02/02/2021 for further evaluation of right upper eczema any weakness. According to patient he stated that yesterday around 2 PM he noticed that his right upper extremity was weak as well as was numb and was all of a sudden. He said that prior to that he had the no difficulty using the his upper extremity and was doing well and he noticed while he was reaching out for something. He denies of any new neck pain him a headache. He denies of any dizziness, any weakness in lower extremities, any difficulty getting his words out, any and new visual disturbance, any difficult to swallowing. Denies any numbness in the lower extremities. Patient is on Xarelto for his the DVT as well as she stated that he was on it also from a cardiac reasons but denies any atrophic fibrillation or flutter. Patient is also on aspirin 81 mg daily. He denies missing his the Xarelto dose or aspirin 81 mg daily. He stated that the for the last 8 days she is been having shortness of breath mild cough and the while at that outside facility he was tested positive for COVID-19. Patient denied any history of stroke or TIAs in the past. He states that he drinks about 3-412 ounces of beer daily. He does have a remote history of the tobacco use stopped about the a 10-12 years ago. Denies any history of illicit drug use. His home medication consists of: Xarelto 2.5mg bid, ASA 81mg, metoprolol, Gabapentin 600mg bid, lipitor 80mg qhs, Lorsartan, Zetia, biotin. Also upon reviewing patient medical record is seems the patient has a arterial bypass in the carotid vertebral. Some of the work-up at outside facility. The outside facility the patient had CT of the head which was reported as no acute process. EKG outside facility reported as sinus rhythm rate 68, probable left atrial enlargement. NIH stroke scale at outside facility was 3. Patient did not get IV TPA since the patient is on the anticoagulation. Creatinine at the outside facility as 0.7 and BUN 17 which is within normal limits. GFR is 121. CPK level is 34 which is within normal limits. Sodium is 136 which is minimally low, potassium 3.7, glucose at outside facilities 106. Some of the work-up at out facility consists of: Initial vital signs his blood pressure of 131/85, heart rate of 71, respiratory of 18, temperature of 97.7 Fahrenheit axillary and pulse ox of 97% on 15 L of nonrebreather. TSH is 0.072 which is low but the free T4 is 2.16 which is considered within n ormal limits. CT of the head in our facility is reported as cerebral atrophy. No acute intracranial abnormality. Mild right maxillary sinusitis. Carotid duplex is reported as limited evaluation of the left common carotid artery, consider carotid CTA or MRA for better evaluation. In the body of the report it is mentioned that the patient has plaque seen bilateral common carotid artery and bilateral bulb. Great amount of plaque seen within left common carotid artery. Left ECA was not definitely seen. Left ICA/CCA ratio was 2.7. Review of Systems Review of system: The 12 point system was reviewed and apparent positive and negative per HPI. Past Medical History Past Medical History: Coronary Artery Disease (CAD), COPD, Deep Vein Thrombosis (DVT), Hyperlipidemia, Hypertension, Myocardial Infarction ([place]), Osteoarthritis (OA), Vascular Disorder Additional Past Medical History / Comment(s): dvt left leg, Last Myocardial Infarction Date:: 04/20/20 History of Any Multi-Drug Resistant Organisms: None Reported Past Surgical History: Heart Catheterization With Stent, Hernia Repair, Joint Replacement, Orthopedic Surgery Additional Past Surgical History / Comment(s): abd. aortogram 09/04/20, lt Fem- pop bypass, and stent, christy carotid endarterectomy, christy knee arthroscopy, rt hip replacement, one cardiac stent Past Anesthesia/Blood Transfusion Reactions: No Reported Reaction Date of Last Stent Placement:: 08/2017 Past Psychological History: No Psychological Hx Reported Smoking Status: Former smoker Past Alcohol Use History: Heavy Additional Past Alcohol Use History / Comment(s): quit smoking 2008, smoked 30- 40 yrs, 1 PPD Past Drug Use History: None Reported - Past Family History Father Family Medical History: Cancer Additional Family Medical History / Comment(s): lung Brother(s) Family Medical History: Cancer Medications and Allergies Home Medications Medication Instructions Recorded Confirmed Type Aspirin 81 mg PO DAILY 04/21/15 02/03/21 History Gabapentin [Neurontin] 600 mg PO BID 04/21/15 02/03/21 History HYDROcodone/APAP 10-325MG [[place] 1 tab PO QID PRN 04/21/15 02/03/21 History 10-325] amLODIPine [Norvasc] 10 mg PO DAILY 04/21/15 02/03/21 History EPINEPHrine (Auto Inject) [Epipen] 0.3 mg IM ONCE PRN 05/25/19 02/03/21 History Atorvastatin [Lipitor] 80 mg PO HS 04/21/20 02/03/21 History Rivaroxaban [Xarelto] 2.5 mg PO BID 04/21/20 02/03/21 History Nitroglycerin Sl Tabs [Nitrostat] 0.4 mg SUBLINGUAL Q5M PRN #60 tab 04/22/20 02/03/21 Rx Biotin 5 mg PO DAILY 09/01/20 02/03/21 History Ezetimibe [Zetia] 10 mg PO DAILY 09/01/20 02/03/21 History Metoprolol Tartrate [Lopressor] 25 mg PO BID 09/01/20 02/03/21 History Albuterol Sulfate [Ventolin HFA] 2 puff INHALATION RT-BID 02/03/21 02/03/21 History Budesonide/Formoterol Fumarate 2 puff INHALATION RT-BID 02/03/21 02/03/21 History [Symbicort 160-4.5 Mcg Inhaler] Losartan Potassium [Cozaar] 100 mg PO DAILY 02/03/21 02/03/21 History Allergies Allergy/AdvReac Type Severity Reaction Status Date / Time venom-honey bee Allergy Anaphylaxis Verified 02/03/21 07:06 [bee venom (honey bee)] Physical Examination - Vital Signs Vital Signs: Vital Signs Temp Pulse Pulse Resp BP BP Pulse Ox 02/03/21 09:00 97.8 F 80 18 109/68 96 02/03/21 04:00 97.9 F 69 20 112/61 95 02/03/21 03:27 64 18 118/66 94 L 02/03/21 03:00 57 L 18 118/66 94 L 02/03/21 01:20 64 22 115/66 92 L 02/03/21 00:20 18 02/03/21 00:18 97.7 F 71 18 131/85 97 Intake and Output 02/02/21 02/03/21 02/03/21 22:59 06:59 14:59 Output Total 80 Balance -80 Output: Urine 80 Other: Weight 96.1 kg GENERAL: The patient is lying in bed and is not in acute distress. CHEST: The heart rate is regular rate rhythm. No murmurs to auscultation. LUNG: Clear to auscultation bilaterally no wheezing noted throughout. Not labored breathing. Is on nonrebreather. ABDOMEN/GI: Bowel sounds present in all 4 quadrants. No tenderness to palpation throughout. NEUROLOGICAL: Higher mental function: The patient is awake, alert, oriented to self, place and time. Patient is following commands. No aphasia and no neglect. Cranial nerves: The pupils are round, equal and reactive to light and accommodation. Visual field are full to confrontation throughout. Extraocular movement is intact no nystagmus is noted. Facial sensation is normal to touch throughout. The facial strength is normal throughout. Hearing is mildly decreased bilaterally to hand rub. Tongue is midline and moved [id number] without any difficulty. No dysarthria is noted. Shoulder shrug is normal bilaterally. Motor: Gait is deferred because of his condition. The strength is right elbow flexion is 4+, right wrist flexion extension is 4+, finger hand extensionare 2-3 while hand network support is 3/5. Otherwise 5 over 5 throughout. Normal tone and bulk. Cerebellum: Normal finger to nose over the left and could not assess right because of weakness. Sensation: Sensation is normal to touch throughout. Reflexes (right/left): 2+ throughout. Plantars are downgoing bilaterally. Results - Laboratory Findings CBC and BMP: 02/03/21 06:25 02/03/21 06:25 Abnormal Lab Findings: Abnormal Labs 02/03/21 06:25 TSH 0.072 L Assessment and Plan Assessment: Right upper extremity weakness (predominately distal) since 2pm on 02/02/2021 likely due to acute ischemic stroke. No IV tpa since on anticoagulation. Arterial bypass in the carotid vertebra Hypertension--currently controlled Pneuomia due to COVID 19 (positive at outside hospital Hyperlipidemia History of DVT on Xarelto History of coronary artery disease status post stent History of myocardial infarction History of peripheral vascular disease Chronic alcohol use (drinks 3-4 cans of 12 oz daily). Ex-tobacco use (quit 10-12 years ago). Plan: * Ordered MRI the brain as well as cervical spine. * Because there is limitation on the carotid I ordered CTA of the head/neck. * He was given aspirin 325 once and are DD and was started on 325mg daily (home dose is 81mg) and is On Xarelto 2.5mg bid. I recommend Xarelto to be held for now until we get the MRI to assess the size of the stroke to avoid any hemorrhagic conversion. If the Xarelto is held, then recommend adding Plavix 75mg daily in the meantime. Placed on Lipitor 80mg qhs for secondary stroke prophylaxis. * 2-D echo, lipid panel are ordered and pending. * Continue neuro checks. * On cardiac monitoring * PT, OT and RADIOLOGY CT TECHNOLOGIST are consulted. * Started the patient on Thiamine 100mg daily. Patient was counseled on tapering down on his consumption of alcohol use. * Pulmonology team is consulted for his hypoxemia. * We'll defer the rest of the medical management to the primary team. * For DVT prophylaxis: Currently on Xarelto. The plan is discussed with the nurse. Thank you for the consultation. Epifanio Antonio MD Neuro-Hospitalist Time with Patient: Greater than 30
[2021-02-03 11:33] LABS: Basophils % (A) 1 %; Eosinophils % (A) 1 %; HCT 43.2 % (39.0-53.0); HGB 13.8 gm/dL (13.0-17.5); Hypochromasia Slight; Lymphocytes # (A) 0.4 k/uL (1.0-4.8); Lymphocytes % (A) 12 %; MCH 30.7 pg (25.0-35.0); Mean Platelet Volume 8.9; Monocytes # (A) 0.2 k/uL (0-1.0); Monocytes % (A) 6 %; Neutrophils # (A) 2.3 k/uL (1.3-7.7); Neutrophils % (A) 76 %; Platelet Count 251 k/uL (150-450); RDW 15.1 % (11.5-15.5)
--- NOTE | 2021-02-03 11:38 | XR ---
EXAMINATION TYPE: XR chest 1V portable DATE OF EXAM: 02/03/2021 COMPARISON: Chest x-ray 09/30/2015 HISTORY: Covid 19 pneumonia, shortness of breath TECHNIQUE: Single frontal view of the chest is obtained. FINDINGS: Bilateral interstitial, groundglass densities are present within the lungs. No evident pne umothorax or sizable effusion. Cardiac mediastinal silhouette is within normal limits. Aorta is dense . There are overlying artifacts. Technique is apical lordotic. Bone mineralization is maintained. IMPRESSION: Findings consistent with patient's history of covid pneumonia
--- NOTE | 2021-02-03 12:22 | P.CNPUL ---
History of Present Illness Consult date: 02/03/21 Requesting physician: Ade Lyon Reason for consult: dyspnea, cough, hypoxemia, pneumonia Chief complaint: CVA, shortness of breath and cough. History of present illness: Pulmonary consult dated 02/03/2021. 65-year-old male who was transferred down from [facility], because of strokelike symptoms, weakness in his right upper extremity, and shortness of breath cough, and just generally not feeling well. The patient was not considered a candidate for TPA as he was outside the window. Also, the patient was recently discovered to be coronavirus positive. The patient has been having respiratory issues for about 2 weeks or so, so he is outside the window for REM. The patient complains of shortness of breath, cough, muscle aches, joint aches, and generally just not feeling well. He feels very weak and fatigued in addition, he came in with the weakness of the right upper extremity was thought to have a CVA. He was seen by our neurologist here. The patient also admits to intermittent fevers. White count 3, hemoglobin 13.8, hematocrit 43.2, platelet count 351,000. Sodium 136, potassium 4.4, chlorides 105, CO2 19, anion gap 12, BUN 19, creatinine 0.67. The computed tomography scan of the brain showed cerebral atrophy, no acute intracranial abnormality, and mild right maxillary sinus disease. Chest x-ray shows diffuse bilateral infiltrates. Review of Systems REVIEW OF SYSTEMS: CONSTITUTIONAL: Weakness and fatigue. NEUROLOGIC: Weakness, right upper extremity. HEENT: [ Negative.] CARDIAC: [Negative.] PULMONARY: Shortness of breath and cough. GI: [Negative.] : [Negative.] RHEUMATOLOGIC: [ Negative.] IMMUNOLOGIC: [ Negative.] ENDOCRINE: [Negative. ] DERMATOLOGIC: [Negative.] Past Medical History Past Medical History: Coronary Artery Disease (CAD), COPD, Deep Vein Thrombosis (DVT), Hyperlipidemia, Hypertension, Myocardial Infarction ([place]), Osteoarthritis (OA), Vascular Disorder Additional Past Medical History / Comment(s): dvt left leg, Last Myocardial Infarction Date:: 04/20/20 History of Any Multi-Drug Resistant Organisms: None Reported Past Surgical History: Heart Catheterization With Stent, Hernia Repair, Joint Replacement, Orthopedic Surgery Additional Past Surgical History / Comment(s): abd. aortogram 09/04/20, lt Fem- pop bypass, and stent, christy carotid endarterectomy, christy knee arthroscopy, rt hip replacement, one cardiac stent Past Anesthesia/Blood Transfusion Reactions: No Reported Reaction Date of Last Stent Placement:: 08/2017 Past Psychological History: No Psychological Hx Reported Smoking Status: Former smoker Past Alcohol Use History: Heavy Additional Past Alcohol Use History / Comment(s): quit smoking 2008, smoked 30- 40 yrs, 1 PPD Past Drug Use History: None Reported - Past Family History Father Family Medical History: Cancer Additional Family Medical History / Comment(s): lung Brother(s) Family Medical History: Cancer Medications and Allergies Home Medications Medication Instructions Recorded Confirmed Type Aspirin 81 mg PO DAILY 04/21/15 02/03/21 History Gabapentin [Neurontin] 600 mg PO BID 04/21/15 02/03/21 History HYDROcodone/APAP 10-325MG [[place] 1 tab PO QID PRN 04/21/15 02/03/21 History 10-325] amLODIPine [Norvasc] 10 mg PO DAILY 04/21/15 02/03/21 History EPINEPHrine (Auto Inject) [Epipen] 0.3 mg IM ONCE PRN 05/25/19 02/03/21 History Atorvastatin [Lipitor] 80 mg PO HS 04/21/20 02/03/21 History Rivaroxaban [Xarelto] 2.5 mg PO BID 04/21/20 02/03/21 History Nitroglycerin Sl Tabs [Nitrostat] 0.4 mg SUBLINGUAL Q5M PRN #60 tab 04/22/20 02/03/21 Rx Biotin 5 mg PO DAILY 09/01/20 02/03/21 History Ezetimibe [Zetia] 10 mg PO DAILY 09/01/20 02/03/21 History Metoprolol Tartrate [Lopressor] 25 mg PO BID 09/01/20 02/03/21 History Albuterol Sulfate [Ventolin HFA] 2 puff INHALATION RT-BID 02/03/21 02/03/21 History Budesonide/Formoterol Fumarate 2 puff INHALATION RT-BID 02/03/21 02/03/21 History [Symbicort 160-4.5 Mcg Inhaler] Losartan Potassium [Cozaar] 100 mg PO DAILY 02/03/21 02/03/21 History Allergies Allergy/AdvReac Type Severity Reaction Status Date / Time venom-honey bee Allergy Anaphylaxis Verified 02/03/21 07:06 [bee venom (honey bee)] Physical Exam Osteopathic Statement: *. No significant issues noted on an osteopathic structural exam other than those noted in the History and Physical/Consult. Vitals: Vital Signs Temp Pulse Pulse Resp BP BP Pulse Ox 02/03/21 11:31 97.8 F 65 21 121/72 98 02/03/21 09:00 97.8 F 80 18 109/68 96 02/03/21 04:00 97.9 F 69 20 112/61 95 02/03/21 03:27 64 18 118/66 94 L 02/03/21 03:00 57 L 18 118/66 94 L 02/03/21 01:20 64 22 115/66 92 L 02/03/21 00:20 18 02/03/21 00:18 97.7 F 71 18 131/85 97 Intake and Output 02/02/21 02/03/21 02/03/21 22:59 06:59 14:59 Output Total 80 Balance -80 Output: Urine 80 Other: Weight 96.1 kg Mild conversational dyspnea, without use of accessory muscles. Saturations are 98% on 15 L high flow oxygen. HEENT examination is grossly unremarkable. . Neck supple. Full range of motion. No adenopathy thyromegaly or neck vein distention. Cardiovascular examination reveals regular rhythm rate. S1-S2 normal. No S3 or S4. No discernible murmur noted. Heart rate 65 bpm. Heart sounds are distant. Lungs reveal scattered bilateral rhonchi. Bibasilar crackles are appreciated. Breath sounds are equal bilaterally but diminished throughout. Abdomen soft bowel sounds are heard. No masses or tenderness. Extremities are intact. No cyanosis clubbing or edema. Skin is without rash or lesion. Neurologic examination is brief but nonfocal. Results - Laboratory Findings CBC and BMP: 02/03/21 06:25 02/03/21 06:25 Abnormal lab findings: Abnormal Labs 02/03/21 02/03/21 02/03/21 06:25 06:25 06:25 WBC 3.0 L Lymphocytes # 0.4 L Sodium 136 L Carbon Dioxide 19 L Glucose 168 H AST 105 H ALT 93 H Albumin 3.2 L TSH 0.072 L - Diagnostic Findings Chest x-ray: image reviewed Assessment and Plan Assessment: Acute hypoxemic respiratory failure secondary to COVID 19 pneumonia. 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 History of COPD from previous heavy tobacco use. History of CAD, status post stent placement. History of deep venous thrombosis. History of hyperlipidemia. Hypertension. Prior history of myocardial infarction. History of DJD. Plan: Plan dated 02/03/2021. The patient is not a candidate for REM. The patient should receive Lovenox, Decadron, vitamin C, vitamin D3, and zinc. The Decadron can be given either orally or IV. We will continue to follow make recommendations were appropriate. The patient's currently on albuterol inhaler, and Symbicort. Additional recommendations and suggestions are forthcoming. Prognosis is guarded. He has been seen by neurology. Time with Patient: Greater than 30
[2021-02-03] MEDS: THIAMINE 100 MG TAB PO SCH (12:36)
--- NOTE | 2021-02-03 16:01 | ECHOF ---
Referral Reason:stroke MEASUREMENTS -------- HEIGHT: 180.3 cm WEIGHT: 95.7 kg BP: IVSd: 1.5 cm (0.6 - 1.1) LVIDd: 3.6 cm (3.9 - 5.3) LVPWd: 1.7 cm (0.6 - 1.1) EDV(Teich): 56 ml IVSs: 2.6 cm LVIDs: 2.2 cm LVPWs: 1.5 cm %IVS Thck: 69 % ESV(Teich): 15 ml EF(Teich): 73 % %FS: 41 % SV(Teich): 41 ml RVIDd: 2.7 cm (< 3.3) IVC: 11.93 mm Ao Diam: 3.4 cm (2.0 - 3.7) LA Diam: 3.9 cm (2.7 - 3.8) AV Cusp: 1.8 cm (1.5 - 2.6) EPSS: 0.9 cm MV E Jimy: 0.94 m/s MV DecT: 239 ms MV Dec [place]: 3.9 m/s MV A Jimy: 0.95 m/s MV E/A Ratio: 0.99 MV PHT: 69 ms MR Vmax: 1.29 m/s MR maxP.70 mmHg AV Vmax: 1.37 m/s AV maxP.52 mmHg TR Vmax: 2.77 m/s TR maxP.63 mmHg RAP: 5.00 mmHg RVSP: 35.63 mmHg MV EF SLOPE: 108.01 mm/s (70 - 150) MV EXCURSION: 14.01 mm (> 18.000) FINDINGS -------- This was a technically difficult study with suboptimal views. The left ventricular size is normal. There is moderate concentric left ventricular hypertrophy. O verall left ventricular systolic function is normal with, an EF between 55 - 60 %. The right ventricle is normal in size. The left atrial size is normal. The right atrial size is normal. Lumason used The aortic valve is trileaflet and appears structurally normal. The mitral valve is normal. There is trace mitral regurgitation. The tricuspid valve appears structurally normal. Mild tricuspid regurgitation present. There is b orderline pulmonary hypertension. The right ventricular systolic pressure, as measured by Doppler, is 35.63mmHg. There is no pulmonic regurgitation present. The aortic root size is normal. IVC Not well visulized. There is no pericardial effusion. CONCLUSIONS -------- 1. The left ventricular size is normal. 2. There is moderate concentric left ventricular hypertrophy. 3. Overall left ventricular systolic function is normal with, an EF between 55 - 60 %. 4. There is trace mitral regurgitation. 5. Mild tricuspid regurgitation present. 6. There is borderline pulmonary hypertension. 7. The right ventricular systolic pressure, as measured by Doppler, is 35.63mmHg. 8. There is no pericardial effusion. NCR OPERATOR: Eli Ruiz RDCS
--- NOTE | 2021-02-03 16:05 | MR ---
MRI CERVICAL SPINE and brain without contrast: CLINICAL HISTORY: Right upper extremity weakness, stroke TECHNIQUE: Multiplanar, multisequence imaging of the brain cervical spine is performed without IV con trast COMPARISON: CT brain 02/03/2021 FINDINGS: Brain MRI: There are scattered areas of restricted diffusion involving the right and left parietal lo bes greater on the left than on the right, corresponding hyperintensity is present on inversion recov kristen T2-weighted sequences. Additional confluent and scattered hyperintensities are present in the per icallosal and subcortical white matter on inversion recovery and T2-weighted sequences. Cortical atro phy is noted. There are expected vascular flow voids. There is no hemorrhage or hydrocephalus. Corpus callosum, pituitary, cervical medullary junction, cerebellopontine angles are within normal limits. There are expected vascular flow voids. Orbits show symmetric appearance. Inflammatory change present within the right maxillary sinus. IMPRESSION: Findings consistent with bilateral subacute infarcts involving the parietal lobes, correl ate for embolic phenomenon. Age-related changes of atrophy and chronic small vessel ischemia. Sagittal images of the cervical spine show the craniocervical junction to appear within normal limits . The cervical and upper thoracic spinal cord is normal in course, caliber, and signal. Vertebral a lignment is anatomic. The vertebral body and intravertebral disk heights are remarkable for some los s of disc height and signal greatest at C5-6 and C6-7, there is multilevel spondylosis and endplate d iscogenic marrow signal change. No significant spinal stenosis. C3-4 shows posterior extension endplate disc complex causing anterior mass effect on the thecal sac. Facet arthropathy and uncovertebral joint hypertrophy results in foraminal encroachment bilaterally. C4-5 show some right-sided foraminal encroachment due to uncovertebral joint hypertrophy and facet ar thropathy. No significant disc herniation. C5-6: Posterior extension of endplate disc complex causes anterior effacement of the thecal sac. Ther e is foraminal encroachment bilaterally left greater than right due to uncovertebral joint hypertroph y and facet arthropathy. C6-7: Bilateral foraminal encroachment is present due to uncovertebral joint hypertrophy and facet ar thropathy. Posterior extension endplate disc complex effaces the anterior thecal sac. C7-T1 and C2-3 are within normal limits. IMPRESSION: Degenerative disc disease, multilevel facet arthropathy and foraminal encroachment.
--- NOTE | 2021-02-03 16:11 | CT ---
EXAMINATION TYPE: CT angio head neck DATE OF EXAM: 02/03/2021 COMPARISON: None HISTORY: RIGHT HAND WEAKNESS CT DLP: 377.9 mGycm CONTRAST: Performed with IV Contrast, patient injected with 65 mL of Isovue 370. Combination Contrast CTA cervical carotids and [place] CTA cervical carotids with 3-D recons truction Contrast CTA of the cervical carotids was performed 3-D reconstruction imaging obtained at a separate workstation. Right carotid system: Mild plaque is seen of the right common carotid artery. There is mild plaque a lso noted at the carotid bulb and proximal ICA. No significant diameter reduction. ECA is patent. Right vertebral artery appears unremarkable. Left carotid system: Severe plaque is seen of the left common carotid artery with occlusion noted at its proximal and mid portions.. There is mild plaque also noted at the carotid bulb and proximal ICA . No significant diameter reduction. ECA is patent. Left vertebral artery appears unremarkable. IMPRESSION: 1. 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 CTA [place] with 3-D reconstruction Contrast CTA of the [place] was performed 3-D reconstruction imaging obtained at a separate workstation. Vertebrobasilar system as well as intracranial portions of the internal carotid arteries and their ma [place]an tributaries are patent. I do not see evidence for sizable aneurysm or vascular malformation. Pl ease note MRI provides greater sensitivity and specificity. Visualized brain appears grossly unremar kable. IMPRESSION: 1. No significant abnormality. NASCET criteria was used in interpretation of this exam?
[2021-02-03] MEDS ORDERED: CLOPIDOGREL 75 MG TAB PO STA (17:26)
[2021-02-03] MEDS: SYMBICORT 160-4.5 MCG INHALER INHALATION SCH (20:35)
[2021-02-03] MEDS: ALBUTEROL NEBULIZED 2.5 MG/3 ML INHALATION SCH ×2 (20:37→20:38)
[2021-02-03] MEDS: ATORVASTATIN 80 MG TAB PO SCH (20:43)
[2021-02-03] MEDS: FAMOTIDINE 20 MG TAB PO SCH (20:43)
[2021-02-03] MEDS ORDERED: ATORVASTATIN 80 MG TAB PO SCH (21:00)
--- NOTE | 2021-02-03 22:35 | P.HPIM ---
History of Present Illness H&P Date: 02/03/21 Chief Complaint: RT sided weakness Patient is a 65-year-old male with a known history of coronary artery disease with history of stent placement, COPD, history of DVT, hypertension, hyperlipidemia, history of GA and previous history of smoking and history of heavy alcohol use initially presented to [facility] due to complaints of right-sided weakness. Patient was also having shortness of breath and cough and not feeling well for the past 2 weeks. Patient felt very weak and fatigued. Patient was started having right upper extremity weakness and thought to have a CVA. Patient was out of window for TPA. Patient was transferred to [facility] for neurology evaluation. Lab data showed RBC 3.0 hemoglobin 13.8 lymphocytes 0.4 Sodium 136 potassium 4.4 chloride 105 bicarb is 19 BUN 19 and creatinine 0.67 AST 105 ALT 93 TSH 0.072 and free T4 2.16 CT head showed cerebral atrophy. No acute intracranial abnormality. Mild right maxillary sinusitis. Carotid duplex is inconclusive study. TTE showed ejection fraction 55 to 60% Chest x-ray showed diffuse bilateral infiltrates. Patient is afebrile. Currently 15 L with 100% nonrebreather. Review of Systems Constitutional: Patient denies any fever or chills . generalized weakness and fatigue. Abdomen: Patient denied nausea vomiting and diarrhea and abdominal pain. Cardiovascular: Patient denies any chest pain or short of breath no palpitations. Respiratory: Patient does have shortness of breath and cough without sputum production. Neurologic: Patient denied any numbness or tingling headache. Rt sided weakness Musculoskeletal: Patient denies any complaints of joint swelling or deformity. Skin: Negative Psychiatric: Negative Endocrine: No heat or cold intolerance. No recent weight gain. Genitourinary: No dysuria or hematuria. All other 14 point ROS negative except the above Past Medical History Past Medical History: Coronary Artery Disease (CAD), COPD, Deep Vein Thrombosis (DVT), Hyperlipidemia, Hypertension, Myocardial Infarction ([place]), Osteoarthritis (OA), Vascular Disorder Additional Past Medical History / Comment(s): dvt left leg, Last Myocardial Infarction Date:: 04/20/20 History of Any Multi-Drug Resistant Organisms: None Reported Past Surgical History: Heart Catheterization With Stent, Hernia Repair, Joint Replacement, Orthopedic Surgery Additional Past Surgical History / Comment(s): abd. aortogram 09/04/20, lt Fem- pop bypass, and stent, christy carotid endarterectomy, christy knee arthroscopy, rt hip replacement, one cardiac stent Past Anesthesia/Blood Transfusion Reactions: No Reported Reaction Date of Last Stent Placement:: 08/2017 Past Psychological History: No Psychological Hx Reported Smoking Status: Former smoker Past Alcohol Use History: Heavy Additional Past Alcohol Use History / Comment(s): quit smoking 2008, smoked 30- 40 yrs, 1 PPD Past Drug Use History: None Reported - Past Family History Father Family Medical History: Cancer Additional Family Medical History / Comment(s): lung Brother(s) Family Medical History: Cancer Medications and Allergies Home Medications Medication Instructions Recorded Confirmed Type RX: Aspirin 81 mg PO DAILY 04/21/15 02/03/21 History RX: Gabapentin [Neurontin] 600 mg PO BID 04/21/15 02/03/21 History RX: HYDROcodone/APAP 10-325MG 1 tab PO QID PRN 04/21/15 02/03/21 History [[place] 10-325] RX: amLODIPine [Norvasc] 10 mg PO DAILY 04/21/15 02/03/21 History RX: EPINEPHrine (Auto Inject) 0.3 mg IM ONCE PRN 05/25/19 02/03/21 History [Epipen] RX: Atorvastatin [Lipitor] 80 mg PO HS 04/21/20 02/03/21 History RX: Rivaroxaban [Xarelto] 2.5 mg PO BID 04/21/20 02/03/21 History RX: Nitroglycerin Sl Tabs 0.4 mg SUBLINGUAL Q5M PRN #60 tab 04/22/20 02/03/21 Rx [Nitrostat] Ezetimibe [Zetia] 10 mg PO DAILY 09/01/20 02/03/21 History Metoprolol Tartrate [Lopressor] 25 mg PO BID 09/01/20 02/03/21 History RX: Biotin 5 mg PO DAILY 09/01/20 02/03/21 History Albuterol Sulfate [Ventolin HFA] 2 puff INHALATION RT-BID 02/03/21 02/03/21 History Budesonide/Formoterol Fumarate 2 puff INHALATION RT-BID 02/03/21 02/03/21 History [Symbicort 160-4.5 Mcg Inhaler] Losartan Potassium [Cozaar] 100 mg PO DAILY 02/03/21 02/03/21 History Allergies Allergy/AdvReac Type Severity Reaction Status Date / Time venom-honey bee Allergy Anaphylaxis Verified 02/03/21 07:06 [bee venom (honey bee)] Physical Exam Vitals: Vital Signs Temp Pulse Pulse Resp BP BP Pulse Ox 02/03/21 09:00 97.8 F 80 18 109/68 96 02/03/21 04:00 97.9 F 69 20 112/61 95 02/03/21 03:27 64 18 118/66 94 L 02/03/21 03:00 57 L 18 118/66 94 L 02/03/21 01:20 64 22 115/66 92 L 02/03/21 00:20 18 02/03/21 00:18 97.7 F 71 18 131/85 97 Intake and Output 02/02/21 02/03/21 02/03/21 22:59 06:59 14:59 Output Total 80 Balance -80 Output: Urine 80 Other: Weight 96.1 kg PHYSICAL EXAMINATION: Patient is lying in the bed comfortably, no acute distress, awake alert and or iented.. HEENT: Normocephalic. Neck is supple. Pupils reactive. Nostrils clear. Oral cavity is moist. Neck reveals no JVD, carotid bruits, or thyromegaly. CHEST EXAMINATION: Trachea is central. Symmetrical expansion.Bilateral coarse sounds.. CARDIAC: Normal S1, S2 with no gallops. No murmurs ABDOMEN: Soft. Bowel sounds normal. No organomegaly. No abdominal bruits. Extremities: reveal no edema. No clubbing or cyanosis Neurologically awake, alert, oriented x3 Right-sided weakness. Skin: No rash or skin lesions. Psychiatric: Coperative. Musculoskeletal: No joint swelling or deformity. Normal range of motion. Results CBC & Chem 7: 02/04/21 07:16 02/04/21 07:16 Labs: Abnormal Lab Results - Last 24 Hours (Table) 02/03/21 Range/Units 06:25 TSH 0.072 L (0.465-4.680) mIU/L Thrombosis Risk Factor Assmnt - DVT/VTE Prophylaxis DVT/VTE Prophylaxis: Pharmacologic Prophylaxis ordered - Choose All That Apply Each Factor Represents 1 point: Abnormal pulmonary function (COPD), Age 41-60 years Each Risk Factor Represents 3 Points: History of DVT/PE Thrombosis Risk Factor Assessment Total Risk Factor Score: 5 Thrombosis Risk Factor Assessment Level: High Risk Assessment and Plan Assessment: Acute hypoxic respiratory failure secondary to COVID-19 pneumonia Right-sided weakness likely due to acute CVA History of COPD Coronary artery disease with history of stent placement History of DVT Hyperlipidemia Hypertension Degenerative joint disease History of severe alcohol abuse DVT prophylaxis. Plan: Patient will be continued on oxygen supplementation and currently 100% nonreb reather. Patient has been having symptoms for the past 2 weeks. Out of window for remdesivir therapy. Continue with dexamethasone 6 mg daily. Continue with breathing treatments with inhaler as needed. Neurology and pulmonary is on board. MRI of the brain was ordered. Xarelto is on hold and patient was started on Plavix as per neurology conditions until the MRI report. Prognosis is guarded at this time. Time with Patient: Greater than 30
[2021-02-04] MEDS: SODIUM CHLORIDE 0.9% 1,000 ML IV SCH
[2021-02-04] MEDS: HYDROcodone/APAP 10-325MG 1 EACH TAB PO PRN ×4 (00:03→23:58)
[2021-02-04 07:55] LABS: African American GFR (CKD) >90 (>60 ml/min/1.73 sqM); Anion Gap 8 mmol/L; Blood Urea Nitrogen 23 mg/dL (9-20); Calcium 9.1 mg/dL (8.4-10.2); Carbon Dioxide 24 mmol/L (22-30); Chloride 106 mmol/L (98-107); Glucose 152 mg/dL (74-99); LDH 820 U/L (313-618); Non-African American GFR(CKD) >90 (>60 ml/min/1.73 sqM); Potassium 3.9 mmol/L (3.5-5.1); Sodium 138 mmol/L (137-145)
[2021-02-04] MEDS ORDERED: ALBUTEROL NEBULIZED 2.5 MG/3 ML INHALATION SCH (08:00)
[2021-02-04] MEDS: CHOLECALCIFEROL 25 MCG (1000 IU) TABLET PO SCH (08:10)
[2021-02-04] MEDS: THIAMINE 100 MG TAB PO SCH (08:11)
[2021-02-04] MEDS: amLODIPine 10 MG TAB PO SCH (08:11)
[2021-02-04] MEDS: METOPROLOL TARTRATE 25 MG TAB PO SCH ×2 (08:11→20:04)
[2021-02-04] MEDS: FAMOTIDINE 20 MG TAB PO SCH ×2 (08:11→20:04)
[2021-02-04] MEDS: CLOPIDOGREL 75 MG TAB PO SCH (08:11)
[2021-02-04] MEDS: dexAMETHasone 2 MG TAB PO SCH (08:11)
[2021-02-04] MEDS: GABAPENTIN 300 MG CAP PO SCH ×2 (08:11→20:04)
[2021-02-04 08:27] LABS: HCT 38.7 % (39.0-53.0); HGB 13.3 gm/dL (13.0-17.5); MCH 31.6 pg (25.0-35.0); MCHC 34.3 g/dL (31.0-37.0); MCV 92.1 fL (80.0-100.0); Mean Platelet Volume 7.2; Platelet Count 339 k/uL (150-450); RDW 14.8 % (11.5-15.5)
[2021-02-04] MEDS ORDERED: ENOXAPARIN 30 MG/0.3 ML SYRINGE SQ SCH (09:00)
[2021-02-04] MEDS ORDERED: ASPIRIN 325 MG TAB PO SCH (09:00)
[2021-02-04 09:39] LABS: Monocytes # (M) 0.45 k/uL (0-1.0); Neutrophils # (M) 4.25 k/uL (1.3-7.7); Neutrophils % (M) 85 %; Nucleated Red Blood Cells 0 /100 WBC (0-0); Total Cells Counted 100
[2021-02-04] MEDS: SYMBICORT 160-4.5 MCG INHALER INHALATION SCH ×2 (09:52→20:37)
--- NOTE | 2021-02-04 10:22 | P.GSCN ---
History of Present Illness Consult date: 02/04/21 Reason for Consult: Left carotid occlusion Requesting physician: Epifanio Antonio History of present illness: This a 65-year-old male who was transferred from [facility] yesterday. He presented to [facility] with complaints of right upper extremity weakness that started 2 days ago at 2 PM in the afternoon. He denied any other focal deficits at that time such as right lower extremity weakness, no visual ch anges, speech difficulty, swallowing difficulty, or left-sided weakness. He has multiple comorbidities including coronary artery disease status post stent, COPD, history of DVT, hyperlipidemia, hypertension, peripheral arterial disease status post stenting, history of alcohol abuse, currently still drinking 3-4 beers a day, in a former smoker who quit 12 years ago. Patient was also complaining of cough and shortness of breath and was diagnosed with coronavirus. Patient states he still having some mild upper extremity weakness, states it is improving. He is right hand dominant. He also has a past medical history of bilateral carotid endarterectomies. The patient follows with Dr. Teague in the outpatient setting for carotid stenosis as well as peripheral arterial disease. Patient underwent a carotid ultrasound on 08/07/2020 in the outpatient setting showing vertebral flow was not visualized on either side. No significant brachial gradient is noted. 51 mmHg left to right pressure gradient is noted. Widely patent right carotid post endarterectomy. The findings from previous exam, the left CCA is occluded and the ICAs being kept open by retrograde flow from the ECA. Clinical correlation per Dr. Teague. Tentative recheck in 6 months. The patient is denying any new focal deficits, he is eating and drinking without any difficulty. He is alert and oriented 3, he denies any chest pain or shortness of breath currently and states his breathing is better. He denies any abdominal pain, nausea, or vomiting. He has been afebrile. On admission he had a CT of the brain that showed cerebral atrophy. No acute intracranial abnormality. Mild right maxillary sinusitis. He also underwent an MRI of the cervical spine and brain that was consistent with bilateral subacute infarcts involving the parietal lobes, correlate for embolic phenomenon. Age-related changes of atrophy and chronic small vessel ischemia. Cervical spine shows degenerative disc disease, multilevel facet arthropathy and foraminal encroachment. Abdomen ultrasound shows right ICA PSV 93.6, with an ICA/CCA ratio 1.0, left ICA PSV 46, ICA/CCA ratio 2.7. Plavix seen bilateral CCA and bilateral bulb. Great amount of plaque seen within left CCA. Left ECA was not definitely seen. CT angiogram head and neck shows occlusion of the proximal and mid portions of the left internal carotid artery. No significant abnormality of head. Left carotid system shows severe plaque seen of the left common carotid artery with occlusion noted at its proximal and mid portions. There is mild plaque also no francia at the carotid bulb and proximal ICA. No significant diameter reduction. ECA is patent. Left vertebral artery appears unremarkable. Echocardiogram shows moderate concentric left ventricular hypertrophy, EF between 55-60%, trace mitral regurgitation, mild tricuspid regurgitation present, borderline pulmonary hypertension. Review of Systems A 14 point review of systems was completed all pertinent positives and negatives as stated in the HPI. Past Medical History Past Medical History: Coronary Artery Disease (CAD), COPD, Deep Vein Thrombosis (DVT), Hyperlipidemia, Hypertension, Myocardial Infarction (RI), Osteoarthritis (OA), Vascular Disorder Additional Past Medical History / Comment(s): dvt left leg, Last Myocardial Infarction Date:: 04/20/20 History of Any Multi-Drug Resistant Organisms: None Reported Past Surgical History: Heart Catheterization With Stent, Hernia Repair, Joint Replacement, Orthopedic Surgery Additional Past Surgical History / Comment(s): abd. aortogram 09/04/20, lt Fem- pop bypass, and stent, christy carotid endarterectomy, christy knee arthroscopy, rt hip replacement, one cardiac stent Past Anesthesia/Blood Transfusion Reactions: No Reported Reaction Date of Last Stent Placement:: 08/2017 Past Psychological History: No Psychological Hx Reported Smoking Status: Former smoker Past Alcohol Use History: Heavy Additional Past Alcohol Use History / Comment(s): quit smoking 2008, smoked 30- 40 yrs, 1 PPD Past Drug Use History: None Reported - Past Family History Father Family Medical History: Cancer Additional Family Medical History / Comment(s): lung Brother(s) Family Medical History: Cancer Medications and Allergies Home Medications Medication Instructions Recorded Confirmed Type Aspirin 81 mg PO DAILY 04/21/15 02/03/21 History Gabapentin [Neurontin] 600 mg PO BID 04/21/15 02/03/21 History HYDROcodone/APAP 10-325MG [Sherrill 1 tab PO QID PRN 04/21/15 02/03/21 History 10-325] amLODIPine [Norvasc] 10 mg PO DAILY 04/21/15 02/03/21 History EPINEPHrine (Auto Inject) [Epipen] 0.3 mg IM ONCE PRN 05/25/19 02/03/21 History Atorvastatin [Lipitor] 80 mg PO HS 04/21/20 02/03/21 History Rivaroxaban [Xarelto] 2.5 mg PO BID 04/21/20 02/03/21 History Nitroglycerin Sl Tabs [Nitrostat] 0.4 mg SUBLINGUAL Q5M PRN #60 tab 04/22/20 02/03/21 Rx Biotin 5 mg PO DAILY 09/01/20 02/03/21 History Ezetimibe [Zetia] 10 mg PO DAILY 09/01/20 02/03/21 History Metoprolol Tartrate [Lopressor] 25 mg PO BID 09/01/20 02/03/21 History Albuterol Sulfate [Ventolin HFA] 2 puff INHALATION RT-BID 02/03/21 02/03/21 History Budesonide/Formoterol Fumarate 2 puff INHALATION RT-BID 02/03/21 02/03/21 History [Symbicort 160-4.5 Mcg Inhaler] Losartan Potassium [Cozaar] 100 mg PO DAILY 02/03/21 02/03/21 History Allergies Allergy/AdvReac Type Severity Reaction Status Date / Time venom-honey bee Allergy Anaphylaxis Verified 02/03/21 07:06 [bee venom (honey bee)] Surgical - Exam Vital Signs Temp Pulse Resp BP Pulse Ox 97.7 F 71 18 131/85 97 02/03/21 00:18 02/03/21 00:18 02/03/21 00:18 02/03/21 00:18 02/03/21 00:18 General appearance: The patient is alert, oriented, in no acute distress. HET: Head is normocephalic and atraumatic. Pupils are equal and reactive. Neck: Supple without lymphadenopathy. Trachea midline. No audible bruit. Heart: S1 S2. Regular rate and rhythm. Lungs: Clear to auscultation. Abdomen: Soft, nontender, nondistended. Extremities: Normal skin color and turgor. No cyanosis, rash, ulceration, clubbing, or edema. Palpable bilateral radial pulses, palpable pedal pulse. Neurological: Right upper extremity strength 3/5 including grasp, has good tone. Left upper extremity with good strength and tone, bilateral lower extremities with good tone and strength. Patient's speech is fluent, answers questions and follows commands appropriately, he has facial symmetry. He is alert and oriented 3. Results - Labs 02/04/21 07:16 02/04/21 07:16 Abnormal Lab Results - Last 24 Hours (Table) 02/03/21 02/03/21 02/03/21 Range/Units 06:25 06:25 06:25 WBC 3.0 L (3.8-10.6) k/uL RBC (4.30-5.90) m/uL Hct (39.0-53.0) % Lymphocytes # 0.4 L (1.0-4.8) k/uL Sodium 136 L (137-145) mmol/L Carbon Dioxide 19 L (22-30) mmol/L BUN (9-20) mg/dL Glucose 168 H (74-99) mg/dL AST 105 H (17-59) U/L ALT 93 H (4-49) U/L Lactate Dehydrogenase (313-618) U/L Albumin 3.2 L (3.5-5.0) g/dL TSH 0.072 L (0.465-4.680) mIU/L 02/04/21 02/04/21 Range/Units 07:16 07:16 WBC (3.8-10.6) k/uL RBC 4.20 L (4.30-5.90) m/uL Hct 38.7 L (39.0-53.0) % Lymphocytes # (1.0-4.8) k/uL Sodium (137-145) mmol/L Carbon Dioxide (22-30) mmol/L BUN 23 H (9-20) mg/dL Glucose 152 H (74-99) mg/dL AST (17-59) U/L ALT (4-49) U/L Lactate Dehydrogenase 820 H (313-618) U/L Albumin (3.5-5.0) g/dL TSH (0.465-4.680) mIU/L Diabetes panel 02/03/21 02/04/21 Range/Units 06:25 07:16 Sodium 136 L 138 (137-145) mmol/L Potassium 4.4 3.9 (3.5-5.1) mmol/L Chloride 105 106 (98-107) mmol/L Carbon Dioxide 19 L 24 (22-30) mmol/L BUN 19 23 H (9-20) mg/dL Creatinine 0.67 0.66 (0.66-1.25) mg/dL Glucose 168 H 152 H (74-99) mg/dL Calcium 8.8 9.1 (8.4-10.2) mg/dL AST 105 H (17-59) U/L ALT 93 H (4-49) U/L Alkaline Phosphatase 85 (38-126) U/L Total Protein 6.7 (6.3-8.2) g/dL Albumin 3.2 L (3.5-5.0) g/dL Thyroid panel 02/03/21 Range/Units 06:25 TSH 0.072 L (0.465-4.680) mIU/L Calcium panel 02/03/21 02/04/21 Range/Units 06:25 07:16 Calcium 8.8 9.1 (8.4-10.2) mg/dL Albumin 3.2 L (3.5-5.0) g/dL Pituitary panel 02/03/21 02/03/21 02/04/21 Range/Units 06:25 06:25 07:16 Sodium 136 L 138 (137-145) mmol/L Potassium 4.4 3.9 (3.5-5.1) mmol/L Chloride 105 106 (98-107) mmol/L Carbon Dioxide 19 L 24 (22-30) mmol/L BUN 19 23 H (9-20) mg/dL Creatinine 0.67 0.66 (0.66-1.25) mg/dL Glucose 168 H 152 H (74-99) mg/dL Calcium 8.8 9.1 (8.4-10.2) mg/dL TSH 0.072 L (0.465-4.680) mIU/L Adrenal panel 02/03/21 02/04/21 Range/Units 06:25 07:16 Sodium 136 L 138 (137-145) mmol/L Potassium 4.4 3.9 (3.5-5.1) mmol/L Chloride 105 106 (98-107) mmol/L Carbon Dioxide 19 L 24 (22-30) mmol/L BUN 19 23 H (9-20) mg/dL Creatinine 0.67 0.66 (0.66-1.25) mg/dL Glucose 168 H 152 H (74-99) mg/dL Calcium 8.8 9.1 (8.4-10.2) mg/dL Total Bilirubin 0.6 (0.2-1.3) mg/dL AST 105 H (17-59) U/L ALT 93 H (4-49) U/L Alkaline Phosphatase 85 (38-126) U/L Total Protein 6.7 (6.3-8.2) g/dL Albumin 3.2 L (3.5-5.0) g/dL - Imaging Comments: See HPI for details Assessment and Plan Assessment: 1. Occlusion of proximal/midportion left ICA 2. Right upper extremity weakness, MRI showing bilateral subacute infarcts both parietal lobes 3. COVID-19 positive 4. History of bilateral carotid endarterectomies (left 2015, right 2011) 5. History of peripheral arterial disease status post stenting 6. History coronary artery disease status post stent 7. History COPD 8. History of DVT 9. Hyperlipidemia 10. Hypertension 11. History of heavy alcohol abuse, currently still drinking at least 3-4 beers a day 12. Former smoker Plan: 1. We'll request outpatient carotid ultrasound for comparison 2. Continue high-dose statin, anticoagulation/antiplatelet per recommendations from neurology 3. Continue medical management 4. Further recommendations to follow Thank you for this consultation, and allowing us to take part in the plan of care of your patient during his hospital stay. The impression and plan of care has been dictated as directed. I performed a history and examination of this patient, discussed the same with the dictator. I agree with the dictator's note ,documented as a scribe. Any additional findings or plans will be noted.
[2021-02-04 11:14] LABS: C Reactive Protein 14.1 mg/dL (<1.0)
--- NOTE | 2021-02-04 11:40 | P.PN ---
Subjective Progress Note Date: 02/04/21 The patient seen at bedside and he stated that the he's doing the better today compared to yesterday. He feels he has more strength over the right hand and rest of upper extremity. He denies off any numbness of any extremities or any neurological deficits. He stated he had his bilateral carotid vessels cleaned out in the past about 4 years ago and is known to Dr. Teauge. Objective - Vital Signs Vital signs: Vital Signs Temp 97.9 F 02/04/21 08:05 Pulse 60 02/04/21 08:05 Resp 18 02/04/21 10:35 BP 119/74 02/04/21 08:05 Pulse Ox 93 L 02/04/21 10:35 Intake & Output 02/03/21 02/04/21 02/04/21 18:59 06:59 18:59 Intake Total 500 120 Output Total 200 250 Balance 300 -130 Intake: Oral 500 120 Output: Urine 200 250 Other: # Voids 1 - Exam GENERAL: The patient is lying in bed and is not in acute distress. NEUROLOGICAL: Higher mental function: The patient is awake, alert, oriented to self, place and time. Patient is following commands. No aphasia and no neglect. Cranial nerves: The pupils are round, equal and reactive to light and accommodation. Visual field are full to confrontation throughout. Extraocular movement is intact no nystagmus is noted. Facial sensation is normal to touch throughout. The facial strength is normal throughout. Hearing is mildly decreased bilaterally to hand rub. Tongue is midline and moved [id number] without any difficulty. No dysarthria is noted. Shoulder shrug is normal bilaterally. Motor: Gait is deferred. The strength is right elbow flexion is 4+ to 5-, right wrist flexion extension is 4+ to 5- , finger hand extensions are 3 while hand audograph operator is 4+/5. Otherwise 5 over 5 throughout. Normal tone and bulk. Cerebellum: Normal finger to nose over the left and could not assess right because of weakness. Sensation: Sensation is normal to touch throughout. Reflexes (right/left): 2+ throughout. Plantars are downgoing bilaterally. WORK-UP: TSH is 0.072 which is low but the free T4 is 2.16 which is considered within normal limits. CT of the head in our facility is reported as cerebral atrophy. No acute intracranial abnormality. Mild right maxillary sinusitis. Carotid duplex is reported as limited evaluation of the left common carotid a rtery, consider carotid CTA or MRA for better evaluation. In the body of the report it is mentioned that the patient has plaque seen bilateral common carotid artery and bilateral bulb. Great amount of plaque seen within left common carotid artery. Left ECA was not definitely seen. Left ICA/CCA ratio was 2.7. CT angiography of the head and neck:: is reported as occlusion of the proximal and mid portions of the left internal carotid artery. MRI the brain is reported as finding consistent with bilateral subacute infarct involving the parietal lobes, correlate for embolic phenomenon. Age-related changes of atrophy and chronic small vessel ischemia. MRI the cervical spine was reported as degenerative disc disease, multilevel facet arthropathy and foraminal encroachment. I don't see any myelopathy. I feel like the patient does have multilevel cervical spondylosis greatest at C3- C4 and C6-C7 2D echo: Was reported as moderate concentric left ventricular hypertrophy. Ejection fraction of 55-60%. Borderline pulmonary hypertension. - Labs CBC & Chem 7: 02/04/21 07:16 02/04/21 07:16 Labs: Abnormal Lab Results - Last 24 Hours (Table) 02/03/21 02/03/21 02/04/21 Range/Units 06:25 06:25 07:16 WBC 3.0 L (3.8-10.6) k/uL RBC (4.30-5.90) m/uL Hct (39.0-53.0) % Lymphocytes # 0.4 L (1.0-4.8) k/uL Lymphocytes # (Manual) (1.0-4.8) k/uL Sodium 136 L (137-145) mmol/L Carbon Dioxide 19 L (22-30) mmol/L BUN 23 H (9-20) mg/dL Glucose 168 H 152 H (74-99) mg/dL AST 105 H (17-59) U/L ALT 93 H (4-49) U/L Lactate Dehydrogenase 820 H (313-618) U/L Albumin 3.2 L (3.5-5.0) g/dL 02/04/21 Range/Units 07:16 WBC (3.8-10.6) k/uL RBC 4.20 L (4.30-5.90) m/uL Hct 38.7 L (39.0-53.0) % Lymphocytes # (1.0-4.8) k/uL Lymphocytes # (Manual) 0.30 L (1.0-4.8) k/uL Sodium (137-145) mmol/L Carbon Dioxide (22-30) mmol/L BUN (9-20) mg/dL Glucose (74-99) mg/dL AST (17-59) U/L ALT (4-49) U/L Lactate Dehydrogenase (313-618) U/L Albumin (3.5-5.0) g/dL Assessment and Plan Assessment: Acute ischemic stroke. Over bilateral parietal (symptoms of right distal upper extremity). Seem embolic (seems cardioembolic). Symptoms since 2pm on 02/02/2021 likely due to acute ischemic stroke. No IV tpa since on a nticoagulation. Occlusion of the proximal and mid portions of the left internal carotid artery (per CTA neck) ?Arterial bypass in the carotid vertebra per outside records from hospital (according to patient he thought he had endarectomy of bilateral carotids done and is known to Dr. Teague) Hypertension--currently controlled Pneuomia due to COVID 19 (positive at outside hospital) Hyperlipidemia History of DVT on Xarelto History of coronary artery disease status post stent History of myocardial infarction History of peripheral vascular disease Chronic alcohol use (drinks 3-4 cans of 12 oz daily). Ex-tobacco use (quit 10-12 years ago). Plan: * Continues ASA 325mg daily and Plavix 75mg daiily (at home he was on ASA 81mg and Xarelto 2.5mg bid). Xarelto is held for now to avoid any hemorrhagic conversion and will restarted tomorrow and then will stop ASA and continue Plavix 75mg daily. Continue Lipitor 80mg qhs for secondary stroke prophylaxis. * Pending lipid panel. * Consulted Vascular surgery team. * Initially placed cardiology team for [place] but cardiology stated since patient is COVID then it will not be done as inpatient but rather outpatient. As result consult is cancelled. * Continue neuro checks. * On cardiac monitoring. Per monitoring it is reported that patient is in sinus rhythm and sinus roel (in 40's). * PT, OT and [employer] are consulted. * Continue Thiamine 100mg daily. Patient was counseled on tapering down on his consumption of alcohol use. * Pulmonology team is on board for his hypoxemia/COVID 19 * We'll defer the rest of the medical management to the primary team. * For DVT prophylaxis: Recommend SCD's The plan is discussed with the patient and his nurse. Epifanio Antonio MD Neuro-Hospitalist Time with Patient: Less than 30
[2021-02-04] MEDS: ALBUTEROL HFA INHALER INHALATION SCH ×3 (13:00→20:37)
--- NOTE | 2021-02-04 13:58 | P.PN ---
Subjective Progress Note Date: 02/04/21 Principal diagnosis: COVID-19 pneumonia, probable left ischemic CVA 65-year-old male who was transferred down from [facility], because of strokelike symptoms, weakness in his right upper extremity, and shortness of breath cough, and just generally not feeling well. The patient was not considered a candidate for TPA as he was outside the window. Also, the patient was recently discovered to be coronavirus positive. The patient has been having respiratory issues for about 2 weeks or so, so he is outside the window for REM. The patient complains of shortness of breath, cough, muscle aches, joint aches, and generally just not feeling well. He feels very weak and fatigued in addition, he came in with the weakness of the right upper extremity was thought to have a CVA. He was seen by our neurologist here. The patient also admits to intermittent fevers. White count 3, hemoglobin 13.8, hematocrit 43.2, platelet count 351,000. Sodium 136, potassium 4.4, chlorides 105, CO2 19, anion gap 12, BUN 19, creatinine 0.67. The computed tomography scan of the brain showed cerebral atrophy, no acute intracranial abnormality, and mild right maxillary sinus disease. Chest x-ray shows diffuse bilateral infiltrates. On 02/04/2021 patient seen in follow-up on selective care unit. He is sitting up in chair, breathing comfortably, he is currently on 6 L of oxygen pulse ox is 93%, he has been afebrile, short of breath with exertion, denies any chest discomfort. He is weak generally, reports of significant cough. No chest discomfort. MRI of the brain and cervical spine was completed showing bilateral subacute infarct involving the parietal lobes, correlate for embolic phenomenon. Illicit degenerative disc disease and multilevel facet arthropathy and for m inimal encroachment in the cervical spine. Please refer to the MRI of the brain and cervical spine report. CT angiogram of the head and neck showed occlusion of the proximal and mid portions of the left internal carotid artery. neurology services are following. Echocardiogram was completed showing moderate concentric LVH, EF of 5-60%, and borderline pulmonary hypertension. Patient continues on full dose aspirin and Plavix 75 mg daily. Xarelto currently on hold, he remains on high intensity Lipitor. Vascular surgery has been consulted for occlusion of proximal/midportion left ICA. No acute events overnight, today's labs have been reviewed, white blood cell count is 5.0, hemoglobin is 1 3.3, platelet count was 339, electrolytes and renal profile were unremarkable Objective - Vital Signs Vital signs: Vital Signs Temp 97.9 F 02/04/21 08:05 Pulse 75 02/04/21 11:59 Resp 20 02/04/21 11:59 BP 111/66 02/04/21 11:59 Pulse Ox 92 L 02/04/21 11:59 Intake & Output 02/03/21 02/04/21 02/04/21 18:59 06:59 18:59 Intake Total 500 120 Output Total 200 250 Balance 300 -130 Intake: Oral 500 120 Output: Urine 200 250 Other: # Voids 1 - Exam GENERAL EXAM: Alert, very pleasant, 65-year-old white male, sitting up in the chair, currently on 5 L of oxygen and pulse ox of 92% comfortable in no apparent distress. HEAD: Normocephalic/atraumatic. EYES: Normal reaction of pupils, equal size. Conjunctiva pink, sclera white. NOSE: Clear with pink turbinates. THROAT: No erythema or exudates. NECK: No masses, no JVD, no thyroid enlargement, no adenopathy. CHEST: No chest wall deformity. Symmetrical expansion. LUNGS: Equal air entry with basilar crackles CVS: Regular rate and rhythm, normal S1 and S2, no gallops, no murmurs, no rubs ABDOMEN: Soft, nontender. No hepatosplenomegaly, normal bowel sounds, no guarding or rigidity. EXTREMITIES: No clubbing, no edema, no cyanosis, 2+ pulses and upper and lower extremities. MUSCULOSKELETAL: Muscle strength and tone normal. SPINE: No scoliosis or deformity SKIN: No rashes CENTRAL NERVOUS SYSTEM: Alert and oriented -3. No focal deficits, tone is normal in all 4 extremities. PSYCHIATRIC: Alert and oriented -3. Appropriate affect. Intact judgment and insight. - Labs CBC & Chem 7: 02/04/21 07:16 02/04/21 07:16 Labs: Abnormal Lab Results - Last 24 Hours (Table) 02/04/21 02/04/21 Range/Units 07:16 07:16 RBC 4.20 L (4.30-5.90) m/uL Hct 38.7 L (39.0-53.0) % Lymphocytes # (Manual) 0.30 L (1.0-4.8) k/uL BUN 23 H (9-20) mg/dL Glucose 152 H (74-99) mg/dL Lactate Dehydrogenase 820 H (313-618) U/L C-Reactive Protein 14.1 H (<1.0) mg/dL Assessment and Plan Plan: Assessment: #1. Acute hypoxic respiratory failure secondary to COVID-19 pneumonia, she is currently on 5 L of oxygen #2. 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 MRI of the brain showing bilateral subacute infarcts in both parietal lobes, possibly related to cardioembolic source #3. Occlusion of the proximal/midportion of the left ICA #4. She of peripheral arterial disease status post stenting #5. History of coronary artery disease status post stenting #6. History of COPD #7. History of previous DVT, was on Xarelto at home #8. Hyperlipidemia #9. Hypertension #10. History of heavy alcohol abuse, currently still drinking at least 3-4 beers a day #11. Former smoker Plan: Continue Decadron Continue current dose Lovenox Continue Symbicort Obtain follow-up chest x-ray tomorrow Monitor for any worsening of his dyspnea or hypoxia Neurology evaluation and vascular surgery evaluation consults were noted We'll continue to follow I performed a history & physical examination of the patient and discussed their management with my nurse practitioner, Charito Ruiz. I reviewed the nurse practitioner's note and agree with the documented findings and plan of care. Lung sounds are positive for diminished breath sounds throughout the lung field. The findings and the impression was discussed with the patient. I attest to the documentation by the nurse practitioner. Time with Patient: Less than 30
[2021-02-04] MEDS: ATORVASTATIN 80 MG TAB PO SCH (20:04)
--- NOTE | 2021-02-04 22:36 | P.PN ---
Subjective Progress Note Date: 02/04/21 Principal diagnosis: Acute hypoxic respiratory failure secondary to COVID-19 infection Acute CVA with right-sided weakness. Patient is a 65-year-old male with a known history of coronary artery disease with history of stent placement, COPD, history of DVT, hypertension, hyperl ipidemia, history of [place] and previous history of smoking and history of heavy alcohol use initially presented to [facility] due to complaints of right- sided weakness. Patient was also having shortness of breath and cough and not feeling well for the past 2 weeks. Patient felt very weak and fatigued. Patient was started having right upper extremity weakness and thought to have a CVA. Patient was out of window for TPA. Patient was transferred to [facility] for neurology evaluation. Lab data showed RBC 3.0 hemoglobin 13.8 lymphocytes 0.4 Sodium 136 potassium 4.4 chloride 105 bicarb is 19 BUN 19 and creatinine 0.67 AST 105 ALT 93 TSH 0.072 and free T4 2.16 CT head showed cerebral atrophy. No acute intracranial abnormality. Mild right maxillary sinusitis. Carotid duplex is inconclusive study. TTE showed ejection fraction 55 to 60% Chest x-ray showed diffuse bilateral infiltrates. Patient is afebrile. Currently 15 L with 100% nonrebreather. 02/04/2021 Patient is currently sitting in the chair comfortable. Oxygen requirement titrated down to 6 L via nasal cannula. Denies any complaints of worsening shortness of breath or chest pain. MRI of the brain showed findings consistent with bilateral subacute infarcts involving the parietal lobes. Correlate for embolic phenomenon. Age-related small vessel ischemic changes. CT angiogram of the head and neck showed occl usion of the proximal and mid portions of the left ICA. Vascular surgery was consulted. 2D echocardiogram showed ejection fraction 55 to 60% and borderline pulmonary hypertension. Patient is being planned aspirin and Plavix. Xarelto is on hold. Continue on DVT prophylaxis. Laboratory data showed WBC 5.0 hemoglobin 13.3 and platelets 339 BUN 23 creatinine 0.66 LDH 820 and CRP 14.1 Free T4 within normal limits. Active Medications Generic Name Dose Route Start Last Admin Trade Name Freq PRN Reason Stop Dose Admin Hydrocodone Bitart/Acetaminophen 1 each 02/03/21 08:25 02/04/21 18:17 Hydrocodone/Apap 10-325mg 1 Each Tab PO 1 each QID PRN Administration Pain Albuterol Sulfate 2 puff 02/04/21 12:00 02/04/21 20:37 Albuterol Hfa Inhaler INHALATION 2 puff RT-QID ANDER Administration Amlodipine Besylate 10 mg 02/03/21 09:00 02/04/21 08:11 Amlodipine 10 Mg Tab PO 10 mg DAILY ANDER Administration Aspirin 325 mg 02/04/21 09:00 02/04/21 08:10 Aspirin 325 Mg Tab PO 325 mg DAILY ANDER Administration Atorvastatin Calcium 80 mg 02/03/21 21:00 02/04/21 20:04 Atorvastatin 80 Mg Tab PO 80 mg HS ANDER Administration Budesonide/Formoterol Fumarate 2 puff 02/03/21 20:00 02/04/21 20:37 Symbicort 160-4.5 Mcg Inhaler INHALATION 2 puff RT-BID ANDER Administration Cholecalciferol 50 mcg 02/03/21 09:00 02/04/21 08:10 Cholecalciferol 25 Mcg (1000 Iu) Tablet PO 50 mcg DAILY ANDER Administration Clopidogrel Bisulfate 75 mg 02/04/21 09:00 02/04/21 08:11 Clopidogrel 75 Mg Tab PO 75 mg DAILY ANDER Administration Dexamethasone 6 mg 02/03/21 09:00 02/04/21 08:11 Dexamethasone 2 Mg Tab PO 6 mg DAILY ANDER Administration Ezetimibe 10 mg 02/03/21 09:00 02/03/21 10:28 Ezetimibe 10 Mg Tab PO 10 mg DAILY ANDER Administration Enoxaparin Sodium 30 mg 02/04/21 09:00 02/04/21 08:11 Enoxaparin 30 Mg/0.3 Ml Syringe SQ 30 mg DAILY ANDER Administration Famotidine 20 mg 02/03/21 21:00 02/04/21 20:04 Famotidine 20 Mg Tab PO 20 mg Q12HR ANDER Administration Gabapentin 600 mg 02/03/21 09:00 02/04/21 20:04 Gabapentin 300 Mg Cap PO 600 mg BID ANDER Administration Sodium Chloride 1,000 mls @ 20 mls/hr 02/03/21 01:30 02/04/21 00:00 Saline 0.9% IV Not Given .Q24H ANDER Metoprolol Tartrate 25 mg 02/03/21 09:00 02/04/21 20:04 Metoprolol Tartrate 25 Mg Tab PO 25 mg BID ANDER Administration Nitroglycerin 0.4 mg 02/03/21 08:25 Nitroglycerin Sl Tabs 0.4 Mg Tab SUBLINGUAL Q5M PRN Chest Pain Thiamine HCl 100 mg 02/03/21 13:00 02/04/21 08:11 Thiamine 100 Mg Tab PO 100 mg DAILY ANDER Administration Objective - Vital Signs Vital signs: Vital Signs Temp 97.9 F 02/04/21 15:58 Pulse 68 02/04/21 15:58 Resp 20 02/04/21 15:58 BP 120/62 02/04/21 15:58 Pulse Ox 93 L 02/04/21 15:58 Intake & Output 02/03/21 02/04/21 02/04/21 18:59 06:59 18:59 Intake Total 500 120 Output Total 200 250 300 Balance 300 -130 -300 Intake: Oral 500 120 Output: Urine 200 250 300 Other: # Voids 1 - Labs CBC & Chem 7: 02/04/21 07:16 02/04/21 07:16 Labs: Abnormal Lab Results - Last 24 Hours (Table) 02/04/21 02/04/21 Range/Units 07:16 07:16 RBC 4.20 L (4.30-5.90) m/uL Hct 38.7 L (39.0-53.0) % Lymphocytes # (Manual) 0.30 L (1.0-4.8) k/uL BUN 23 H (9-20) mg/dL Glucose 152 H (74-99) mg/dL Lactate Dehydrogenase 820 H (313-618) U/L C-Reactive Protein 14.1 H (<1.0) mg/dL Assessment and Plan Assessment: Acute hypoxic respiratory failure secondary to COVID-19 pneumonia Right-sided weakness likely due to acute CVA. possible embolic Left ICA stenosis. History of COPD Coronary artery disease with history of stent placement History of DVT Hyperlipidemia Hypertension Degenerative joint disease History of severe alcohol abuse DVT prophylaxis. Plan: Patient will be continued on oxygen supplementation on NC, was on 100% nonrebreather. Patient has been having symptoms for the past 2 weeks. Out of window for remdesivir therapy. Continue with dexamethasone 6 mg daily. Continue with breathing treatments with inhaler as needed. Neurology and pulmonary is on board. MRI of the brain showed bilateral infracts possible embolic. Xarelto is on hold and patient was started on Plavix as per neurology conditions until the MRI report. Patient was seen by vascular surgery due to left ICA stenosis and ordered ultrasound for comparison. tolerating oral diet. Prognosis is guarded at this time. Time with Patient: Greater than 30
[2021-02-05 01:15] LABS: Chol/HDL Ratio 3.71; Cholesterol 115 mg/dL (0-200); LDL Cholesterol,Calculated 66.8 mg/dL (0.0-131.0)
[2021-02-05 01:33] LABS: Ferritin 920.2 ng/mL (22.0-322.0)
[2021-02-05 03:44] VITALS: TEMP 98.1
[2021-02-05] MEDS: SODIUM CHLORIDE 0.9% 1,000 ML IV SCH (03:49)
[2021-02-05] MEDS: HYDROcodone/APAP 10-325MG 1 EACH TAB PO PRN ×2 (06:48→13:24)
[2021-02-05 06:54] LABS: Basophils % (A) 0 %; Eosinophils % (A) 0 %; HCT 43.2 % (39.0-53.0); Hypochromasia Slight; Lymphocytes # (A) 0.6 k/uL (1.0-4.8); Lymphocytes % (A) 10 %; MCH 30.4 pg (25.0-35.0); MCHC 32.5 g/dL (31.0-37.0); MCV 93.6 fL (80.0-100.0); Mean Platelet Volume 7.1; Monocytes # (A) 0.5 k/uL (0-1.0); Monocytes % (A) 9 %; Neutrophils # (A) 4.2 k/uL (1.3-7.7); Neutrophils % (A) 77 %; Platelet Count 349 k/uL (150-450); RBC 4.61 m/uL (4.30-5.90); RDW 14.9 % (11.5-15.5); WBC 5.5 k/uL (3.8-10.6)
[2021-02-05 07:18] LABS: African American GFR (CKD) >90 (>60 ml/min/1.73 sqM); Anion Gap 6 mmol/L; Blood Urea Nitrogen 26 mg/dL (9-20); Calcium 9.2 mg/dL (8.4-10.2); Carbon Dioxide 25 mmol/L (22-30); Chloride 108 mmol/L (98-107); Glucose 130 mg/dL (74-99); Non-African American GFR(CKD) >90 (>60 ml/min/1.73 sqM); Potassium 4.6 mmol/L (3.5-5.1); Sodium 139 mmol/L (137-145)
[2021-02-05] MEDS: ALBUTEROL HFA INHALER INHALATION SCH ×3 (07:45→15:17)
[2021-02-05] MEDS: SYMBICORT 160-4.5 MCG INHALER INHALATION SCH (07:46)
--- NOTE | 2021-02-05 08:31 | XR ---
EXAMINATION TYPE: XR chest 1V portable DATE OF EXAM: 02/05/2021 COMPARISON: Chest x-ray 02/03/2021 HISTORY: Covid 19 pneumonia TECHNIQUE: Single frontal view of the chest is obtained. FINDINGS: Findings are similar to prior exam. Mixed interstitial and airspace disease is present. Ca rdiac mediastinal silhouette is unchanged. There is no pneumothorax or pleural effusion. IMPRESSION: Findings consistent with patient's history
--- NOTE | 2021-02-05 08:50 | P.PN ---
Subjective Progress Note Date: 02/05/21 Principal diagnosis: Left ICA occlusion The patient is seen and examined sitting up in a bedside chair just finishing his breakfast. He denies any acute changes through the night. He denies any new focal deficits. States he still has some mild weakness in the right upper extremity and states possibly a little in the right lower extremity when ambulating feels somewhat weak in both legs, however states right may be a little weaker. Neurology consult to cardiology for [place], however due to coated positive status, cardiology recommends being done outpatient. Objective - Vital Signs Vital signs: Vital Signs Temp 98.1 F 02/05/21 03:43 Pulse 73 02/05/21 03:43 Resp 18 02/05/21 03:43 BP 110/67 02/05/21 03:43 Pulse Ox 96 02/05/21 07:46 Intake & Output 02/04/21 02/05/21 02/05/21 18:59 06:59 18:59 Output Total 300 280 Balance -300 -280 Output: Urine 300 280 Other: # Voids 1 - Exam General appearance: The patient is alert, oriented, in in no acute distress. HET: Head is normocephalic and atraumatic. Pupils are equal and reactive. Neck: Supple without lymphadenopathy. Trachea midline. Heart: S1 S2. Regular rate and rhythm. Lungs: No crackles or wheezes are heard. Extremities: Normal skin color and turgor. No cyanosis, rash, ulceration, clubbing, or edema. Neurological: Mild right upper extremity weakness, 4/5. No other focal deficits noted. Patient alert and oriented 3. - Labs CBC & Chem 7: 02/05/21 06:24 02/05/21 06:24 Labs: Abnormal Lab Results - Last 24 Hours (Table) 02/04/21 02/04/21 02/05/21 Range/Units 07:16 07:16 06:24 Lymphocytes # 0.6 L (1.0-4.8) k/uL Lymphocytes # (Manual) 0.30 L (1.0-4.8) k/uL Chloride (98-107) mmol/L BUN (9-20) mg/dL Glucose (74-99) mg/dL Ferritin 920.2 H (22.0-322.0) ng/mL C-Reactive Protein 14.1 H (<1.0) mg/dL HDL Cholesterol 31.0 L (40.0-60.0) mg/dL 02/05/21 Range/Units 06:24 Lymphocytes # (1.0-4.8) k/uL Lymphocytes # (Manual) (1.0-4.8) k/uL Chloride 108 H (98-107) mmol/L BUN 26 H (9-20) mg/dL Glucose 130 H (74-99) mg/dL Ferritin (22.0-322.0) ng/mL C-Reactive Protein (<1.0) mg/dL HDL Cholesterol (40.0-60.0) mg/dL Assessment and Plan Assessment: 1. Occlusion of proximal/midportion left ICA 2. Right upper extremity weakness, MRI showing bilateral subacute infarcts both parietal lobes 3. COVID-19 positive 4. History of bilateral carotid endarterectomies (left 2015, right 2011) 5. History of peripheral arterial disease status post stenting 6. History coronary artery disease status post stent 7. History COPD 8. History of DVT 9. Hyperlipidemia 10. Hypertension 11. History of heavy alcohol abuse, currently still drinking at least 3-4 beers a day 12. Former smoker Plan: 1. Continue symptomatic and supportive care 2. Continue high-dose statin, anticoagulation/antiplatelet per recommendations from neurology 3. Continue medical management 4. Agree with PT/OT consult 5. Left ICA occlusion chronic and being monitored outpatient by . There is no indication for any acute vascular surgical procedures. Patient may be discharged from a vascular surgical standpoint with follow-up. Thank you for this consultation, and allowing us to take part in the plan of ca re of your patient during his hospital stay. The impression and plan of care has been dictated as directed. I performed a history and examination of this patient, discussed the same with the dictator. I agree with the dictator's note ,documented as a scribe. Any additional findings or plans will be noted.
[2021-02-05] MEDS ORDERED: RIVAROXABAN 2.5 MG TABLET PO SCH (09:00)
[2021-02-05] MEDS: CHOLECALCIFEROL 25 MCG (1000 IU) TABLET PO SCH (09:15)
[2021-02-05] MEDS: METOPROLOL TARTRATE 25 MG TAB PO SCH (09:15)
[2021-02-05] MEDS: amLODIPine 10 MG TAB PO SCH (09:15)
[2021-02-05] MEDS: dexAMETHasone 2 MG TAB PO SCH (09:15)
[2021-02-05] MEDS: GABAPENTIN 300 MG CAP PO SCH (09:15)
[2021-02-05] MEDS: FAMOTIDINE 20 MG TAB PO SCH (09:15)
[2021-02-05] MEDS: THIAMINE 100 MG TAB PO SCH (09:15)
[2021-02-05] MEDS: EZETIMIBE 10 MG TAB PO SCH (09:15)
[2021-02-05] MEDS: CLOPIDOGREL 75 MG TAB PO SCH (09:15)
--- NOTE | 2021-02-05 11:33 | P.PN ---
Subjective Progress Note Date: 02/05/21 65-year-old male who was transferred down from [facility], because of strokelike symptoms, weakness in his right upper extremity, and shortness of breath cough, and just generally not feeling well. The patient was not considered a candidate for TPA as he was outside the window. Also, the patient was recently discovered to be coronavirus positive. The patient has been having respiratory issues for about 2 weeks or so, so he is outside the window for REM. The patient complains of shortness of breath, cough, muscle aches, joint aches, and generally just not feeling well. He feels very weak and fatigued in addition, he came in with the weakness of the right upper extremity was thought to have a CVA. He was seen by our neurologist here. The patient also admits to intermittent fevers. White count 3, hemoglobin 13.8, hematocrit 43.2, platelet count 351,000. Sodium 136, potassium 4.4, chlorides 105, CO2 19, anion gap 12, BUN 19, creatinine 0.67. The computed tomography scan of the brain showed cerebral atrophy, no acute intracranial abnormality, and mild right maxillary sinus disease. Chest x-ray shows diffuse bilateral infiltrates. On 02/04/2021 patient seen in follow-up on selective care unit. He is sitting up in chair, breathing comfortably, he is currently on 6 L of oxygen pulse ox is 93%, he has been afebrile, short of breath with exertion, denies any chest discomfort. He is weak generally, reports of significant cough. No chest discomfort. MRI of the brain and cervical spine was completed showing bilateral subacute infarct involving the parietal lobes, correlate for embolic phenomenon. Illicit degenerative disc disease and multilevel facet arthropathy and for minimal encroachment in the cervical spine. Please refer to the MRI of the brain and cervical spine report. CT angiogram of the head and neck showed occlusion of the proximal and mid portions of the left internal carotid artery. neurology services are following. Echocardiogram was completed showing moderate concentric LVH, EF of 5-60%, and borderline pulmonary hypertension. Patient continues on full dose aspirin and Plavix 75 mg daily. Xarelto currently on hold, he remains on high intensity Lipitor. Vascular surgery has been consulted for occlusion of proximal/midportion left ICA. No acute events overnight, today's labs have been reviewed, white blood cell count is 5.0, hemoglobin is 13.3, platelet count was 339, electrolytes and renal profile were unremarkable The patient is seen today 02/05/2021 follow-up on the selective care unit. He is currently sitting up in a chair at the bedside. Awake and alert in no acute distress. He is still having some ongoing issues with his right upper extremity weakness. He is on 5 L high flow nasal cannula. He's been transitioned to Xarelto. Chest x-ray showing improvement. White count 5.5. Hemoglobin 14.0. Lymphocytes 0.6. Sodium 139. Potassium 4.6. Creatinine 0.66. He remains on Symbicort, albuterol. He remains on Decadron. Back on Xarelto. Objective - Vital Signs Vital signs: Vital Signs Temp 98.1 F 02/05/21 03:43 Pulse 73 02/05/21 03:43 Resp 18 02/05/21 03:43 BP 110/67 02/05/21 03:43 Pulse Ox 96 02/05/21 07:46 Intake & Output 02/04/21 02/05/21 02/05/21 18:59 06:59 18:59 Intake Total 236 Output Total 300 280 Balance -300 -280 236 Intake: Oral 236 Output: Urine 300 280 Other: # Voids 1 - Exam GENERAL EXAM: Alert, very pleasant, 65-year-old white male, sitting up in the chair, currently on 5 L of oxygen and pulse ox of 96% comfortable in no apparent distress. HEAD: Normocephalic/atraumatic. EYES: Normal reaction of pupils, equal size. Conjunctiva pink, sclera white. NOSE: Clear with pink turbinates. THROAT: No erythema or exudates. NECK: No masses, no JVD, no thyroid enlargement, no adenopathy. CHEST: No chest wall deformity. Symmetrical expansion. LUNGS: Equal air entry with basilar crackles CVS: Regular rate and rhythm, normal S1 and S2, no gallops, no murmurs, no rubs ABDOMEN: Soft, nontender. No hepatosplenomegaly, normal bowel sounds, no guarding or rigidity. EXTREMITIES: No clubbing, no edema, no cyanosis, 2+ pulses and upper and lower extremities. MUSCULOSKELETAL: Muscle strength and tone normal. SPINE: No scoliosis or deformity SKIN: No rashes CENTRAL NERVOUS SYSTEM: Alert and oriented -3. No focal deficits, tone is normal in all 4 extremities. PSYCHIATRIC: Alert and oriented -3. Appropriate affect. Intact judgment and insight. - Labs CBC & Chem 7: 02/05/21 06:24 02/05/21 06:24 Labs: Abnormal Lab Results - Last 24 Hours (Table) 02/04/21 02/05/21 02/05/21 Range/Units 07:16 06:24 06:24 Lymphocytes # 0.6 L (1.0-4.8) k/uL Chloride 108 H (98-107) mmol/L BUN 26 H (9-20) mg/dL Glucose 130 H (74-99) mg/dL Ferritin 920.2 H (22.0-322.0) ng/mL HDL Cholesterol 31.0 L (40.0-60.0) mg/dL Assessment and Plan Assessment: 1 Acute hypoxic respiratory failure secondary to COVID-19 pneumonia, currently on 5 L of oxygen 2 Probable left ischemic CVA, with right upper extremity weakness, improved. MRI of the brain showing bilateral subacute infarcts in both parietal lobes, possibly related to cardioembolic source 3 Occlusion of the proximal/midportion of the left ICA 4 She of peripheral arterial disease status post stenting 5 History of coronary artery disease status post stenting 6 History of COPD 7 History of previous DVT, was on Xarelto at home 8 Hyperlipidemia 9 Hypertension 10 History of heavy alcohol abuse, currently still drinking at least 3-4 beers a day 11 Former smoker Plan: The patient was seen and evaluated by Dr. Antonio Chest x-ray and labs reviewed Back on Xarelto Continue Symbicort, albuterol Remains on Decadron, vitamin supplements Titrate the FiO2 as tolerated We will continue to follow I, the cosigning physician, performed a history & physical examination of the patient. Lungs sounds with crackles in the bilateral bases. Maintaining good O2 saturations in the 90s on 5 L/m per nasal cannula. I discussed the assessment and plan of care with my nurse practitioner, Bouchra Gomez. I attest to the above note as dictated by her.
[2021-02-05 11:49] VITALS: RESP 16
--- NOTE | 2021-02-05 13:52 | P.PN ---
Subjective Progress Note Date: 02/05/21 The patient seen at bedside in feels like he is doing better today compared to his initial presentation. He denies of any neurological deficits. I spoke with vascular surgery team Nuzhat and she stated patient did have endarectomy of bilateral carotids in past (prior to seeing Dr. Teague) but not aware of Arterial bypass in the carotid vertebra per outside records from hospital. Also she stated his carotid occlusion over left seems old. Objective - Vital Signs Vital signs: Vital Signs Temp 98.1 F 02/05/21 03:43 Pulse 76 02/05/21 12:00 Resp 16 02/05/21 12:00 BP 126/89 02/05/21 12:00 Pulse Ox 87 L 02/05/21 12:00 Intake & Output 02/04/21 02/05/21 02/05/21 18:59 06:59 18:59 Intake Total 236 Output Total 300 280 Balance -300 -280 236 Intake: Oral 236 Output: Urine 300 280 Other: # Voids 1 - Exam GENERAL: The patient is lying in bed and is not in acute distress. NEUROLOGICAL: Higher mental function: The patient is awake, alert, oriented to self, place and time. Patient is following commands. No aphasia and no neglect. Cranial nerves: The pupils are round, equal and reactive to light and accommodation. Visual field are full to confrontation throughout. Extraocular movement is intact no nystagmus is noted. Facial sensation is normal to touch throughout. The facial strength is normal throughout. Hearing is mildly decreased bilaterally to hand rub. Tongue is midline and moved [id number] without any difficulty. No dysarthria is noted. Shoulder shrug is normal bilaterally. Motor: Gait is deferred. The strength is right elbow flexion is 4+ to 5-, right wrist flexion extension is 4+ to 5- , finger hand extensions are 3- to minimally 4 while hand racquet maker is 4+/5. Otherwise 5 over 5 throughout. Normal tone and bulk. Cerebellum: Normal finger to nose over the left and could not assess right because of weakness. Sensation: Sensation is normal to touch throughout. Reflexes (right/left): 2+ throughout. Plantars are downgoing bilaterally. WORK-UP: TSH is 0.072 which is low but the free T4 is 2.16 which is considered within normal limits. Lipid panel: Triglyceride of 86, cholesterol 1:15, LDL 66 and HDL of 31. CT of the head in our facility is reported as cerebral atrophy. No acute intracranial abnormality. Mild right maxillary sinusitis. Carotid duplex is reported as limited evaluation of the left common carotid artery, consider carotid CTA or MRA for better evaluation. In the body of the report it is mentioned that the patient has plaque seen bilateral common carotid artery and bilateral bulb. Great amount of plaque seen within left common carotid artery. Left ECA was not definitely seen. Left ICA/CCA ratio was 2.7. CT angiography of the head and neck:: is reported as occlusion of the proximal and mid portions of the left internal carotid artery. MRI the brain is reported as finding consistent with bilateral subacute infarct involving the parietal lobes, correlate for embolic phenomenon. Age-related changes of atrophy and chronic small vessel ischemia. MRI the cervical spine was reported as degenerative disc disease, multilevel facet arthropathy and foraminal encroachment. I don't see any myelopathy. I fe el like the patient does have multilevel cervical spondylosis greatest at C3-C4 and C6-C7 2D echo: Was reported as moderate concentric left ventricular hypertrophy. Ejection fraction of 55-60%. Borderline pulmonary hypertension. - Labs CBC & Chem 7: 02/05/21 06:24 02/05/21 06:24 Labs: Abnormal Lab Results - Last 24 Hours (Table) 02/04/21 02/05/21 02/05/21 Range/Units 07:16 06:24 06:24 Lymphocytes # 0.6 L (1.0-4.8) k/uL Chloride 108 H (98-107) mmol/L BUN 26 H (9-20) mg/dL Glucose 130 H (74-99) mg/dL Ferritin 920.2 H (22.0-322.0) ng/mL HDL Cholesterol 31.0 L (40.0-60.0) mg/dL Assessment and Plan Assessment: * Acute ischemic stroke. Over bilateral parietal (symptoms of right distal upper extremity). Seem embolic (seems cardioembolic). Symptoms since 2pm on 02/02/2021 likely due to acute ischemic stroke. No IV tpa since on anticoagulation. * Occlusion of the proximal and mid portions of the left internal carotid artery (per CTA neck). Per vascular surgery N.P this is old. * ?Arterial bypass in the carotid vertebra per outside records from hospital (according to patient he thought he had endarectomy of bilateral carotids done and is known to Dr. Teague). I spoke with vascular surgery team NAjayP. and she stated patient did have endarectomy of bilateral carotids in past (prior to seeing Dr. Teague) but not aware of Arterial bypass in the carotid vertebra per outside records from hospital. * Hypertension--currently controlled * Pneuomia due to COVID 19 (positive at outside hospital) * Hyperlipidemia * History of DVT on Xarelto * History of coronary artery disease status post stent * History of myocardial infarction * History of peripheral vascular disease * Chronic alcohol use (drinks 3-4 cans of 12 oz daily). * Ex-tobacco use (quit 10-12 years ago). Plan: * I stopped ASA and will continue Plavix 75mg daily and restarted his home dose of Xarelto 2.5mg bid. Continue Lipitor 80mg qhs for secondary stroke prophylaxis. * Vascular surgery team is on board. * Initially placed cardiology team for [place] but cardiology stated since patient is COVID then it will not be done as inpatient but rather outpatient. As result consult is cancelled. * Continue neuro checks. * On cardiac monitoring. Per monitoring it is reported that patient is in sinus rhythm. * Ordered event monitor for 21 days and patient to follow-up with cardiology team as outpatient. * PT, OT and EMERGENCY SERVICE RESTORER are consulted. * Continue Thiamine 100mg daily. Patient was counseled on tapering down on his consumption of alcohol use. * Pulmonology team is on board for his hypoxemia/COVID 19 * We'll defer the rest of the medical management to the primary team. * For DVT prophylaxis: On Xarelto. * Upon discharge, the patient needs to follow-up with a neurologist as outpat ient within 1-2 weeks. The plan is discussed with the patient and his nurse. There is no further neurological work-up. He is clear from neurological stand point. Epifanio Antonio MD Neuro-Hospitalist Time with Patient: Less than 30
[2021-02-05 18:19] VITALS: BP 133/74; PULSE 74
== END 2021-02-05 18:20 | disposition home or self-care (01) ==
LOC: SUPCPDRO 00:13 → EC 00:13 → 3SCARD 01:39
PROVIDERS: ADMIT Hospitalist; ATTEND Hospitalist
CPT/HCPCS: 36415; 70450; 70496; 70498; 70551; 71045; 72141; 80048; 80053; 80061; 82728; 83615; 84439; 84443; 84484; 85025; 86140; 93270; 93306; 93880; 94640; 94760; 99285

== ENCOUNTER → 2021-10-29 | Day surgery (SDC) | payer MEDICARE, OTHER ==
[2021-10-28 11:16] VITALS: BMI 27.1
[~2021-10-29] MED LIST changes: +ALPRAZolam 0.5 MG TAB ONE; -HEPARIN SODIUM 1,000 UN/ML (10ML VL) ONE; -HYDROcodone/APAP 10-325MG 1 EACH TAB PO ONE; +IV FLUID CONTINUATION 500 ML IV ONE; -LIDOCAINE 1% INJ 10MG/ML (20 ML MDV) ONE; -LIDOCAINE 1% INJ 10MG/ML (20 ML MDV) SQ ONE; +LIDOCAINE 1% INJ 10MG/ML (30 ML VIAL-PF) SQ ONE; +MIDAZOLAM 2 MG/2 ML VIAL IV ONE; -MORPHINE SULFATE 4 MG/ML SYRINGE IVP ONE; -MORPHINE SULFATE 4 MG/ML SYRINGE ONE; -SODIUM CHLORIDE 0.9% 1,000 ML IV ONE; +SODIUM CHLORIDE 0.9% 1,000 ML in EMPTY BAG 1 BAG IV ONE; +fentaNYL (PF) 50 MCG/ML 2 ML AMP IV ONE
[2021-10-29 17:55] LABS: Calcium 9.8 mg/dL (8.4-10.2); Potassium 4.9 mmol/L (3.5-5.1)
[2021-10-29 17:57] LABS: Basophils # (A) 0.1 k/uL (0-0.2); Basophils % (A) 1 %; Eosinophils # (A) 0.2 k/uL (0-0.7); Eosinophils % (A) 2 %; HCT 47.5 % (39.0-53.0); HGB 15.1 gm/dL (13.0-17.5); Lymphocytes # (A) 1.6 k/uL (1.0-4.8); Lymphocytes % (A) 21 %; MCH 32.9 pg (25.0-35.0); MCHC 31.7 g/dL (31.0-37.0); MCV 103.8 fL (80.0-100.0); Macrocytosis Slight; Monocytes # (A) 0.7 k/uL (0-1.0); Monocytes % (A) 9 %; Neutrophils # (A) 4.7 k/uL (1.3-7.7); Neutrophils % (A) 64 %; Platelet Count 228 k/uL (150-450); RBC 4.58 m/uL (4.30-5.90); RDW 13.8 % (11.5-15.5); WBC 7.4 k/uL (3.8-10.6)
--- NOTE | 2021-10-29 21:12 | OP ---
OPERATIVE REPORT DATE OF PROCEDURE: 10/29/2021 PREOPERATIVE DIAGNOSIS: 1. Left iliofemoral stenosis. 2. Status post left femoral to tibial in situ vein bypass graft. 3. Decreasing ankle-brachial index. POSTOPERATIVE DIAGNOSIS: 1. Left iliofemoral stenosis. 2. Status post left femoral to tibial in situ vein bypass graft. 3. Decreasing ankle-brachial index. OPERATIVE PROCEDURE: 1. Ultrasound-guided cannulation of the right common femoral artery. 2. Catheter placement, abdominal aorta. 3. Selective catheter placement, left femoral artery. 4. Left femoral angiogram. 5. Balloon dilation with a drug-eluting balloon at the common femoral level. 6. Conscious sedation time 43 minutes. INDICATIONS: The patient is a 66-year-old male with an extensive history of peripheral vascular disease who a few years ago had undergone a left femoral to tibial in situ vein bypass graft for limb-threatening ischemia. He has been doing well. In surveillance his ankle-brachial index was noted to be decreasing. He did undergo a CT angiogram which demonstrated findings consistent with distal external iliac/common femoral artery stenosis. Because of the decrease in arterial perfusion, although the graft remained patent, it was felt the graft may be threatened, and as such patient was offered angiography with possible percutaneous intervention. PROCEDURE DESCRIPTION AND FINDINGS: The patient was brought to the special procedures suite. Both groins were sterilely prepped and draped in the usual manner. The patient did receive 2 mg of Versed and 50 mcg of fentanyl for moderate conscious sedation purposes. Both groins were sterilely prepped and draped in the usual manner. Utilizing ultrasound, the common femoral artery on the right was identified. Xylocaine 1% was utilized for local anesthesia of tissues overlying the common femoral artery. Through this anesthetized area and with the aid of ultrasound, a multipurpose needle was utilized to cannulate the artery. Once cannulated, a soft-tipped guidewire was advanced into the artery. The needle was withdrawn and eventually a 6-[place] sheath was placed. An Omni Flush catheter was advanced over a guidewire and positioned at the L1 interspace. Abdominal aortogram was then performed. Subsequently the catheter was pulled down to the level of the aortic bifurcation and iliofemoral, popliteal, tibial angiography was performed bilaterally. FINDINGS: Abdominal aortogram demonstrates single renal arteries bilaterally without evidence of hemodynamically significant stenosis. There is a small saccular aneurysm at the bifurcation estimated to be less than 3 cm in diameter. Right iliac angiography demonstrates the common and external as well as internal iliac segments to be patent with non-hemodynamically severe diffuse disease present. Right femoral angiography demonstrates the common profundus to be patent. There is partial obscuring of the femoral artery due to prosthetic hip. The superficial femoral artery is patent. There is a stent in the mid superficial femoral artery which is patent. Right popliteal angiography demonstrates the popliteal artery to be patent. Some non- hemodynamically severe stenosis is identified proximally. Due to decrease in image quality, it is unclear whether there is any other pathology in the popliteal artery. Tibial angiography demonstrates the anterior tibial and posterior tibial as well as the peroneal arteries to be patent. Finer detail is obscured by lack of adequate image quality. Left iliac angiography demonstrates the common as well as the external and internal segments to be patent. The internal iliac is heavily diseased. Modest tapered stenosis of the common iliac is noted. Left femoral angiography demonstrates stenosis of the common femoral which appears to be hemodynamically significant. The profundus appears unremarkable. The SFA is occluded at its origin. There is a widely patent in situ vein bypass graft which has a widely patent anastomotic line at the tibioperoneal trunk. The posterior tibial and peroneal arterial segments appear to be patent down across the ankle mortise. INTERVENTION: It was felt the patient would benefit by percutaneous balloon dilation of this. He may have a severe left common femoral artery stenosis. As such, the catheter was manipulated across the aortic bifurcation and a guidewire was advanced down through the catheter in position in the profunda femoris artery. The Omni Flush catheter was exchanged for an angled [place] catheter. The guidewire was withdrawn and a planning arteriogram was performed. Under roadmap guidance, the guidewire was readvanced into the fundus and a 6 x 40 mm drug-eluting balloon was utilized to balloon-dilate the common femoral artery stenosis. Completion angiogram demonstrated good angiographic result without evidence of residual stenosis. With the above findings noted, the catheter was withdrawn, as was the sheath, and the puncture wound was closed with the aid of an Angio-Seal device. The patient tolerated the procedure well and was taken to the recovery area in satisfactory and stable condition. Total fluoroscopy time 10.5 minutes. Total contrast volume 115 mL of Isovue-250. MMODL / IJN: [id number] /
--- NOTE | 2021-10-30 13:03 | IR ---
Fluoroscopy HISTORY: Peripheral vascular occlusive disease 10.5 minutes fluoroscopy time supplied to the referring clinician. 434 intraoperative C-arm images d ocument the procedure. See dictated report from vascular surgery.
== END ==
LOC: CATHCVL 11:25
PROVIDERS: ATTEND Surgery
DX: I70.202 Unspecified atherosclerosis of native arteries of extremities, left leg (principal); I25.10 Atherosclerotic heart disease of native coronary artery without angina pectoris; I10 Essential (primary) hypertension; E78.5 Hyperlipidemia, unspecified; I82.409 Acute embolism and thrombosis of unspecified deep veins of unspecified lower extremity; Z96.641 Presence of right artificial hip joint; Z98.890 Other specified postprocedural states; Z80.9 Family history of malignant neoplasm, unspecified; Z82.49 Family history of ischemic heart disease and other diseases of the circulatory system; Z87.891 Personal history of nicotine dependence; Z79.82 Long term (current) use of aspirin; Z79.891 Long term (current) use of opiate analgesic; Z79.899 Other long term (current) drug therapy
CPT/HCPCS: 37224; 75625; 75716; 80048; 85025; C1894 ×2; C1769 ×4; C1760; C2623; J2250; J2001; J3010; Q9966

== ENCOUNTER 2021-11-13 07:10 | Day surgery (SDC) | payer MEDICARE, OTHER ==
[~2021-11-13 07:10] MED LIST changes: -ALPRAZolam 0.5 MG TAB ONE; +ASPIRIN 325 MG TAB PO PRN; -IOPAMIDOL-250 100ML BTL INTRAARTER ONE; -IV FLUID CONTINUATION 500 ML IV ONE; -LIDOCAINE 1% INJ 10MG/ML (30 ML VIAL-PF) SQ ONE; -MIDAZOLAM 2 MG/2 ML VIAL IV ONE; -fentaNYL (PF) 50 MCG/ML 2 ML AMP IV ONE; -fentaNYL (PF) 50 MCG/ML 2 ML AMP ONE
[2021-11-13 07:59] LABS: Calcium 9.5 mg/dL (8.4-10.2); Potassium 4.7 mmol/L (3.5-5.1)
[2021-11-13 08:01] LABS: Basophils # (A) 0.1 k/uL (0-0.2); Basophils % (A) 1 %; Eosinophils # (A) 0.2 k/uL (0-0.7); Eosinophils % (A) 3 %; HCT 44.8 % (39.0-53.0); HGB 14.8 gm/dL (13.0-17.5); Lymphocytes # (A) 1.5 k/uL (1.0-4.8); Lymphocytes % (A) 20 %; MCH 33.8 pg (25.0-35.0); MCHC 33.1 g/dL (31.0-37.0); Macrocytosis Slight; Mean Platelet Volume 7.1; Monocytes # (A) 0.6 k/uL (0-1.0); Monocytes % (A) 7 %; Neutrophils # (A) 5.2 k/uL (1.3-7.7); Neutrophils % (A) 67 %; Platelet Count 251 k/uL (150-450); RBC 4.39 m/uL (4.30-5.90); RDW 13.4 % (11.5-15.5); WBC 7.7 k/uL (3.8-10.6)
--- NOTE | 2021-11-13 09:22 | P.HPIHPCON ---
History of Present Illness H&P Date: 11/13/21 Allen is a 66-year-old male well known to our group for performed arterial disease. In the past has undergone a left femoral to tibial bypass. He recently underwent a left lower showed angiogram and iliac artery intervention of his left side via right femoral access. In the past few days he has been having increasing pain of his right lower extremity, it has now become more rest pain and tingling in his foot. In the office yesterday and found to have no evidence of femoral pulse and he was scheduled for diagnostic injury at this time. He remains motor sensory intact otherwise. His foot is warm at this time. Plan is to go forward with an angiogram and evaluate for what intervention possibilities including angioplasty, possible thrombolysis etc. These were all discussed with the patient in the preoperative area. They seemingly understand and are willing to proceed Consent for Procedure: I have explained the operation/procedure to the patient, including the risks, benefits, side effects, alternative therapies (including not receiving the proposed treatment or service), the likelihood of the patient achieving his/her goals, and potential recuperation problems for the procedure/sedation/analgesia, as well as any blood products, if indicated. I also explained to the patient the risks, benefits and side effects of the alternatives, as well as the risks related to not receiving the proposed procedure, care, treatment, or services. Past Medical History Past Medical History: Coronary Artery Disease (CAD), COPD, CVA/TIA, Deep Vein Thrombosis (DVT), Hyperlipidemia, Hypertension, Myocardial Infarction ([place]), Osteoarthritis (OA), Vascular Disorder Additional Past Medical History / Comment(s): dvt left leg, COVID 02/2021, TIA-no residual effects, gallstones, kidney stones Last Myocardial Infarction Date:: 04/20/20 History of Any Multi-Drug Resistant Organisms: None Reported Past Surgical History: Heart Catheterization With Stent, Hernia Repair, Joint Replacement, Orthopedic Surgery Additional Past Surgical History / Comment(s): abd. aortogram 09/04/20, L Fem- pop bypass with stent, christy carotid endarterectomy, christy knee arthroscopy, rt hip replacement, one cardiac stent, surgery in October 2021 L lower extrem runoff with ballon angioplasty. Past Anesthesia/Blood Transfusion Reactions: No Reported Reaction Date of Last Stent Placement:: 08/2017 Smoking Status: Former smoker - Past Family History Father Family Medical History: Cancer Additional Family Medical History / Comment(s): lung Brother(s) Family Medical History: Cancer Son(s) Family Medical History: Cancer Medications and Allergies Home Medications Medication Instructions Recorded Confirmed Type Gabapentin [Neurontin] 600 mg PO BID 04/21/15 11/13/21 History HYDROcodone/APAP 10-325MG [[place] 1 tab PO QID PRN 04/21/15 11/13/21 History 10-325] amLODIPine [Norvasc] 10 mg PO HS 04/21/15 11/13/21 History EPINEPHrine (Auto Inject) [Epipen] 0.3 mg IM ONCE PRN 05/25/19 11/12/21 History Rivaroxaban [Xarelto] 2.5 mg PO BID 04/21/20 11/12/21 History Nitroglycerin Sl Tabs [Nitrostat] 0.4 mg SUBLINGUAL Q5M PRN #60 tab 04/22/20 11/12/21 Rx Biotin 5 mg PO HS 09/01/20 11/13/21 History Ezetimibe [Zetia] 10 mg PO DAILY 09/01/20 11/13/21 History Metoprolol Tartrate [Lopressor] 25 mg PO BID 09/01/20 11/13/21 History Albuterol Sulfate [Ventolin HFA] 2 puff INHALATION RT-BID PRN 02/03/21 11/13/21 History Budesonide/Formoterol Fumarate 2 puff INHALATION RT-BID 02/03/21 11/13/21 History [Symbicort 160-4.5 Mcg Inhaler] Losartan Potassium [Cozaar] 100 mg PO DAILY 02/03/21 11/13/21 History Thiamine [Vitamin B-1] 100 mg PO DAILY #30 tab 02/05/21 11/13/21 Rx Baclofen [Lioresal] 20 mg PO BID 10/20/21 11/13/21 History Clopidogrel [Plavix] 75 mg PO HS 10/20/21 11/13/21 History Rosuvastatin Calcium [Crestor] 40 mg PO HS 10/20/21 11/13/21 History Allergies Allergy/AdvReac Type Severity Reaction Status Date / Time venom-honey bee Allergy Anaphylaxis Verified 11/12/21 13:13 [bee venom (honey bee)] Surgical - Exam Vital Signs Temp Pulse Resp BP Pulse Ox 98.3 F 64 16 177/80 93 L 11/13/21 07:54 11/13/21 07:54 11/13/21 07:54 11/13/21 07:54 11/13/21 07:54 Wasn't cooperative male in no acute distress. HEENT is normal cephalic, atraumatic, excellent motion intact. Heart appears regular at this time. Lungs are clear bilaterally. Abdomen is soft, nontender nondistended. Extremity show no clubbing or edema. He has palpable radial pulses bilaterally. No palpable femoral pulse on the right. Right lower extremity is warm and dry. Motor intact. Some diminished sensation however positive for sensation. Normal mood and affect a cranial nerves II through XII grossly intact Results - Labs 11/13/21 07:40 11/13/21 07:40 Abnormal Lab Results - Last 24 Hours (Table) 11/13/21 11/13/21 Range/Units 07:40 07:40 MCV 102.0 H (80.0-100.0) fL Chloride 109 H (98-107) mmol/L Carbon Dioxide 21 L (22-30) mmol/L Glucose 115 H (74-99) mg/dL Diabetes panel 11/13/21 Range/Units 07:40 Sodium 142 (137-145) mmol/L Potassium 4.7 (3.5-5.1) mmol/L Chloride 109 H (98-107) mmol/L Carbon Dioxide 21 L (22-30) mmol/L BUN 16 (9-20) mg/dL Creatinine 1.05 (0.66-1.25) mg/dL Glucose 115 H (74-99) mg/dL Calcium 9.5 (8.4-10.2) mg/dL Calcium panel 11/13/21 Range/Units 07:40 Calcium 9.5 (8.4-10.2) mg/dL Pituitary panel 11/13/21 Range/Units 07:40 Sodium 142 (137-145) mmol/L Potassium 4.7 (3.5-5.1) mmol/L Chloride 109 H (98-107) mmol/L Carbon Dioxide 21 L (22-30) mmol/L BUN 16 (9-20) mg/dL Creatinine 1.05 (0.66-1.25) mg/dL Glucose 115 H (74-99) mg/dL Calcium 9.5 (8.4-10.2) mg/dL Adrenal panel 11/13/21 Range/Units 07:40 Sodium 142 (137-145) mmol/L Potassium 4.7 (3.5-5.1) mmol/L Chloride 109 H (98-107) mmol/L Carbon Dioxide 21 L (22-30) mmol/L BUN 16 (9-20) mg/dL Creatinine 1.05 (0.66-1.25) mg/dL Glucose 115 H (74-99) mg/dL Calcium 9.5 (8.4-10.2) mg/dL Assessment and Plan Assessment: Absent right femoral pulse Peripheral arterial disease History of recent angiogram Plan: At this time of that afforded angiogram to the brachial access. Further recom mendations to follow. Discussed the possibility of the patient needing needing inpatient intervention and possibly open surgical approach in the near future should this be required. Discussion will be had with his primary operative surgeon as well.
[2021-11-13] MEDS ORDERED: MIDAZOLAM 2 MG/2 ML VIAL IV ONE (09:44)
[2021-11-13] MEDS ORDERED: LIDOCAINE 1% INJ 10MG/ML (30 ML VIAL-PF) SQ ONE (09:44)
[2021-11-13] MEDS ORDERED: fentaNYL (PF) 50 MCG/ML 2 ML AMP IV ONE (09:44)
[2021-11-13] MEDS ORDERED: IOPAMIDOL-250 100ML BTL INTRAARTER ONE (10:06)
--- NOTE | 2021-11-13 10:59 | P.OP ---
Date of Procedure: 11/13/21 Description of Procedure: Preoperative diagnosis: Right lower extremity pain, absent right femoral pulse, previous angiogram with device Postoperative diagnosis: Same Procedure: Ultrasound-guided left brachial artery access Aortogram Right lower extremity angiogram, catheter placement at common femoral artery 23 minutes of moderate conscious sedation Surgeon: Sintia Corral D.O. EBL: Less than 5 mL IV fluids: See records Urine output: Not measured Drains: None Complications: None immediately apparent Condition: Stable to recovery Operative indication and findings: Patient is a 66-year-old male with previous left femoral tibial bypass and subsequent angiographic imaging for iliac stenosis and balloon angioplasty via right common femoral artery access. A closure device is utilized at that time. Follow-up in the office, the patient was having increased pain of his right lower extremity with evidence of absent pulses on the right femoral side therefore is recommended to undergo an angiogram by my partner. He presents today for this. We discussed the risks and benefits and possible outcomes. He seems to understand and is willing proceed Procedure in detail: The patient is taken to the operative suite and placed in supine position. The left upper extremity is prepped and draped in usual sterile fashion. A pre-procedure timeout was performed, all parties were in agreement. Using ultrasound, the left brachial artery was identified. The skin overlying was anesthetized 1% lidocaine plain. Using a micro-access needle, the artery was accessed. Seldinger technique was used to place a 6-[place] sheath. Catheters and wires were used to traverse the aortic arch into the descending aorta and down into the abdominal aorta. An aortogram was performed revealing significant distal aortic disease. There is patent iliac arteries bilaterally. There is re-confirmed evidence of an abdominal aortic aneurysm. Selective right sided angiography was obtained. The right common and external iliac arteries appear patent. The right common femoral artery appears patent with abrupt occlusion just beyond what appears to be the inferior epigastric artery takeoff. There is visualized flow through the profunda and faint flow into the superficial femoral artery. Multiple attempts were made to traverse this area of occlusion for unsuccessful. At that point catheters and wires were then removed. The sheath was removed and manual pressure was held until hemostasis was adequate. Patient was transferred back to recovery in stable condition. The patient will require surgical intervention for open femoral endarterectomy at the femoral vessel and possible patch angioplasty. Patient remains motor sensory intact to the right lower extremity.
--- NOTE | 2021-11-13 11:19 | IR ---
EXAMINATION TYPE: IR angio lower extremity RT DATE OF EXAM: 11/13/2021 COMPARISON: NONE HISTORY: Fluoroscopy time. Fluoroscopy was provided to the referring clinician.
[2021-11-13] MEDS ORDERED: HEPARIN SODIUM 1,000 UN/ML (10ML VL) IV PRN (11:21)
[2021-11-13] MEDS: MORPHINE SULFATE 4 MG/ML SYRINGE IV PRN ×2 (11:45→20:36)
[2021-11-13 12:44] LABS: INR 1.1 (<1.2); Partial Thromboplastin Time 24.6 sec (22.0-30.0); Prothrombin Time 11.4 sec (9.0-12.0)
[2021-11-13] MEDS: HEPARIN SOD,PORK IN 0.45% NACL 25,000 UNIT in 0.45% NACL 1 250ML.BAG IV SCH (13:12)
[2021-11-13] MEDS: HYDROcodone/APAP 5-325MG 1 EACH TAB PO PRN ×2 (13:25→23:32)
[2021-11-13] MEDS: SODIUM CHLORIDE 0.9% 1,000 ML IV SCH (15:30)
[2021-11-13] MEDS: BACLOFEN 10 MG TAB PO SCH (20:38)
[2021-11-13] MEDS: METOPROLOL TARTRATE 25 MG TAB PO SCH (20:39)
[2021-11-13] MEDS: GABAPENTIN 300 MG CAP PO SCH (20:39)
[2021-11-13] MEDS: ATORVASTATIN 80 MG TAB PO SCH (20:39)
[2021-11-13] MEDS: SYMBICORT 160-4.5 MCG INHALER INHALATION SCH (20:40)
[2021-11-13] MEDS: amLODIPine 10 MG TAB PO SCH (20:40)
[2021-11-13] MEDS ORDERED: NON FORMULARY DRUG (Biotin [Biotin] 5 MG Capsule) PO SCH (21:00)
[2021-11-13] MEDS ORDERED: CLOPIDOGREL 75 MG TAB PO SCH (21:00)
[2021-11-13] MEDS ORDERED: SYMBICORT 160-4.5 MCG INHALER INHALATION STA (23:29)
[2021-11-14] MEDS: SODIUM CHLORIDE 0.9% 1,000 ML IV SCH ×2 (02:32→17:06)
[2021-11-14] MEDS: HEPARIN SOD,PORK IN 0.45% NACL 25,000 UNIT in 0.45% NACL 1 250ML.BAG IV SCH ×2 (06:45→17:06)
[2021-11-14] MEDS: SYMBICORT 160-4.5 MCG INHALER INHALATION SCH ×2 (07:55→19:41)
[2021-11-14] MEDS: ALBUTEROL HFA INHALER INHALATION PRN ×2 (07:55→19:42)
[2021-11-14] MEDS: HYDROcodone/APAP 5-325MG 1 EACH TAB PO PRN (08:14)
[2021-11-14] MEDS: BACLOFEN 10 MG TAB PO SCH ×2 (08:15→19:55)
[2021-11-14] MEDS: METOPROLOL TARTRATE 25 MG TAB PO SCH ×2 (08:15→19:55)
[2021-11-14] MEDS: GABAPENTIN 300 MG CAP PO SCH ×2 (08:15→19:55)
[2021-11-14] MEDS ORDERED: NON FORMULARY DRUG (Epinephrine (Auto Inject) 0.3 MG/0.3 ML Syringe) IM PRN (10:24)
[2021-11-14] MEDS ORDERED: NITROGLYCERIN SL TABS 0.4 MG TAB SUBLINGUAL PRN (10:24)
[2021-11-14] MEDS ORDERED: LOSARTAN 50 MG TAB PO SCH (10:30)
[2021-11-14 11:22] LABS: Basophils % (A) 1 %; Eosinophils # (A) 0.2 k/uL (0-0.7); Eosinophils % (A) 4 %; HCT 43.3 % (39.0-53.0); HGB 14.1 gm/dL (13.0-17.5); Lymphocytes % (A) 20 %; MCHC 32.5 g/dL (31.0-37.0); MCV 101.7 fL (80.0-100.0); Macrocytosis Slight; Mean Platelet Volume 6.9; Monocytes # (A) 0.4 k/uL (0-1.0); Monocytes % (A) 7 %; Neutrophils # (A) 3.6 k/uL (1.3-7.7); Neutrophils % (A) 66 %; Platelet Count 191 k/uL (150-450); RBC 4.26 m/uL (4.30-5.90); RDW 13.2 % (11.5-15.5); WBC 5.4 k/uL (3.8-10.6)
[2021-11-14] MEDS: MORPHINE SULFATE 4 MG/ML SYRINGE IV PRN ×2 (11:30→19:55)
--- NOTE | 2021-11-14 11:31 | P.CONS ---
History of Present Illness - Reason for Consult Management of hypertension - History of Present Illness 66-year-old male came in the for peripheral vascular disease patient will angiography of the right leg and possible angioplasty and thrombolysis of the right leg. Patient has severe or progressive disease quit smoking many years ago and recently underwent left iliac artery intervention started having t ingling pain in the right lower extremity found to have feeble pulses cold right lower extremity. Medicine was consulted for management of hypertension. Patient is not well controlled in the right lower extremity and patient uses a Xarelto at home, presently on IV heparin. It is in the past does have coronary artery disease. REVIEW OF SYSTEMS: CONSTITUTIONAL: No fever, no malaise, no fatigue. HEENT: No recent visual problems or hearing problems. Denied any sore throat. CARDIOVASCULAR: No chest pain, orthopnea, PND, no palpitations, no syncope. PULMONARY: No shortness of breath, no cough, no hemoptysis. GASTROINTESTINAL: No diarrhea, no nausea, no vomiting, no abdominal pain. NEUROLOGICAL: No headaches, no weakness, no numbness. HEMATOLOGICAL: Denies any bleeding or petechiae. GENITOURINARY: Denies any burning micturition, frequency, or urgency. MUSCULOSKELETAL/RHEUMATOLOGICAL: Denies any joint pain, swelling, or any muscle pain. Severe pain in the right leg and calf ENDOCRINE: Denies any polyuria or polydipsia. The rest of the 14-point review of systems is negative. PHYSICAL EXAMINATION: GENERAL: The patient is alert and oriented x3, not in any acute distress. Well developed, well nourished. HEENT: Pupils are round and equally reacting to light. EOMI. No scleral icterus. No conjunctival pallor. Normocephalic, atraumatic. No pharyngeal erythema. No thyromegaly. CARDIOVASCULAR: S1 and S2 present. No murmurs, rubs, or gallops. PULMONARY: Chest is clear to auscultation, no wheezing or crackles. ABDOMEN: Soft, nontender, nondistended, normoactive bowel sounds. No palpable organomegaly. MUSCULOSKELETAL: No joint swelling or deformity. EXTREMITIES: No cyanosis, clubbing, or pedal edema. NEUROLOGICAL: Gross neurological examination did not reveal any focal deficits. SKIN: No rashes. Assessment and plan -Severe peripheral vascular disease involving the right leg mostly right femoral artery: Continue the IV heparin for the management as per vascular surgery. Patient was started on Percocet and discontinue [place] for pain because of uncontrolled pain. -Hypertension patient's blood pressure is within normal limits actually on the low normal side and down the and it is in the supraglottic to have understood home medications will be continued -History of DVT in the past Xarelto is being held at this time patient will be continued on IV heparin -Coronary artery disease -COPD without any acute exacerbation -Hyperlipidemia -Hypertension -Osteoarthritis DVT prophylaxis: On IV heparin Past Medical History Past Medical History: Coronary Artery Disease (CAD), COPD, CVA/TIA, Deep Vein Thrombosis (DVT), Hyperlipidemia, Hypertension, Myocardial Infarction ([place]), Osteoarthritis (OA), Vascular Disorder Additional Past Medical History / Comment(s): dvt left leg, COVID 02/2021, TIA-no residual effects, gallstones, kidney stones Last Myocardial Infarction Date:: 04/20/20 History of Any Multi-Drug Resistant Organisms: None Reported Past Surgical History: Heart Catheterization With Stent, Hernia Repair, Joint Replacement, Orthopedic Surgery Additional Past Surgical History / Comment(s): abd. aortogram 09/04/20, L Fem- pop bypass with stent, christy carotid endarterectomy, christy knee arthroscopy, rt hip replacement, one cardiac stent, surgery in October 2021 L lower extrem runoff with ballon angioplasty. Past Anesthesia/Blood Transfusion Reactions: No Reported Reaction Date of Last Stent Placement:: 08/2017 Past Psychological History: No Psychological Hx Reported Smoking Status: Former smoker Past Alcohol Use History: Occasional Additional Past Alcohol Use History / Comment(s): quit smoking 2008, smoked 30- 40 yrs, 1 PPD Past Drug Use History: None Reported - Past Family History Father Family Medical History: Cancer Additional Family Medical History / Comment(s): lung Brother(s) Family Medical History: Cancer Son(s) Family Medical History: Cancer Medications and Allergies Home Medications Medication Instructions Recorded Confirmed Type Gabapentin [Neurontin] 600 mg PO BID 04/21/15 11/13/21 History HYDROcodone/APAP 10-325MG [[place] 1 tab PO QID PRN 04/21/15 11/13/21 History 10-325] amLODIPine [Norvasc] 10 mg PO HS 04/21/15 11/13/21 History EPINEPHrine (Auto Inject) [Epipen] 0.3 mg IM ONCE PRN 05/25/19 11/12/21 History Rivaroxaban [Xarelto] 2.5 mg PO BID 04/21/20 11/12/21 History Nitroglycerin Sl Tabs [Nitrostat] 0.4 mg SUBLINGUAL Q5M PRN #60 tab 04/22/20 11/12/21 Rx Biotin 5 mg PO HS 09/01/20 11/13/21 History Ezetimibe [Zetia] 10 mg PO DAILY 09/01/20 11/13/21 History Metoprolol Tartrate [Lopressor] 25 mg PO BID 09/01/20 11/13/21 History Albuterol Sulfate [Ventolin HFA] 2 puff INHALATION RT-BID PRN 02/03/21 11/13/21 History Budesonide/Formoterol Fumarate 2 puff INHALATION RT-BID 02/03/21 11/13/21 History [Symbicort 160-4.5 Mcg Inhaler] Losartan Potassium [Cozaar] 100 mg PO DAILY 02/03/21 11/13/21 History Thiamine [Vitamin B-1] 100 mg PO DAILY #30 tab 02/05/21 11/13/21 Rx Baclofen [Lioresal] 20 mg PO BID 10/20/21 11/13/21 History Clopidogrel [Plavix] 75 mg PO HS 10/20/21 11/13/21 History Rosuvastatin Calcium [Crestor] 40 mg PO HS 10/20/21 11/13/21 History Allergies Allergy/AdvReac Type Severity Reaction Status Date / Time venom-honey bee Allergy Anaphylaxis Verified 11/12/21 13:13 [bee venom (honey bee)] Physical Exam Vitals: Vital Signs Temp Pulse Pulse Resp BP Pulse Ox 11/14/21 08:00 97.6 F 70 70 18 113/60 90 L 11/14/21 04:00 59 L 18 119/72 91 L 11/13/21 23:30 98 F 61 17 105/66 90 L 11/13/21 19:55 98.4 F 62 18 108/65 90 L 11/13/21 16:05 16 97/58 96 11/13/21 14:56 56 L 16 96/56 11/13/21 12:19 60 16 123/72 93 L Intake and Output 11/13/21 11/14/21 11/14/21 22:59 06:59 14:59 Intake Total 250 240 Output Total 700 350 450 Balance -700 -100 -210 Intake: Intake, IV Titration 250 Amount Heparin Sod,Pork in 0.45% 250 NaCl 25,000 unit In 0.45 % NaCl 1 250ml.bag @ 18 UNITS/KG/HR 17.118 mls/hr IV .[id number] [facility] Rx#: [id number] Oral 240 Output: Urine 700 350 450 Results CBC & Chem 7: 11/14/21 10:52 11/13/21 07:40 Labs: Abnormal Lab Results - Last 24 Hours (Table) 11/13/21 11/14/21 Range/Units 17:17 10:52 RBC 4.26 L (4.30-5.90) m/uL MCV 101.7 H (80.0-100.0) fL APTT 51.7 H (22.0-30.0) sec
[2021-11-14] MEDS: oxyCODONE-APAP 10-325MG 1 EACH TAB PO PRN ×2 (16:07→23:19)
--- NOTE | 2021-11-14 16:33 | P.PN ---
Subjective Progress Note Date: 11/14/21 Principal diagnosis: right femoral occlusion patient seen and evaluated. States he is having mild pain in the right calf. His left leg feels better. He denies any fevers, chills, chest pain or shortness of breath. Objective - Vital Signs Vital signs: Vital Signs Temp 98.1 F 11/14/21 16:00 Pulse 68 11/14/21 16:00 Resp 18 11/14/21 16:00 BP 117/70 11/14/21 16:00 Pulse Ox 88 L 11/14/21 16:00 FiO2 Intake & Output 11/13/21 11/14/21 11/14/21 18:59 06:59 18:59 Intake Total 500 250 580.996 Output Total 650 750 450 Balance -150 -500 130.996 Weight 95.1 kg Intake: IV 250 Intake, IV Titration 250 250 100.996 Amount Heparin Sod,Pork in 0.45% 250 100.996 NaCl 25,000 unit In 0.45 % NaCl 1 250ml.bag @ 18 UNITS/KG/HR 17.118 mls/hr IV .[id number] [facility] Rx#: [id number] Sodium Chloride 0.9% 1, 250 000 ml @ 75 mls/hr IV . [id number] [facility] Rx#:[id number] Oral 480 Output: Urine 650 750 450 - Exam Palpable femoral pulse on the left and PT pulse Non palpable right femoral, DP, or PT pulse echymosis noted right groin Left radial pulse palpable, access site without hematoma - Constitutional General appearance: Present: average body habitus, cooperative - Respiratory Respiratory: bilateral: CTA - Cardiovascular Rhythm: regular - Labs CBC & Chem 7: 11/14/21 10:52 11/13/21 07:40 Labs: Abnormal Lab Results - Last 24 Hours (Table) 11/13/21 11/14/21 11/14/21 Range/Units 17:17 10:52 10:52 RBC 4.26 L (4.30-5.90) m/uL MCV 101.7 H (80.0-100.0) fL APTT 51.7 H 70.6 H (22.0-30.0) sec Assessment and Plan Assessment: Right femoral artery occlusion Peripheral arterial disease history of left lower extremity revascularization Plan: Discussed with patient findings from previous angiogram and plan is to have open femoral revascularization, thrombectomy and likely patch angioplasty on Tuesday with Dr. Paredes. I discussed with him options for possible surgery tomorrow but he would like Dr. Paredes to do his surgery Tuesday. He is not in significant pain, his leg is not in immediate threat and therefore ok for continued heparin drip and surgery Tuesday as scheduled.
[2021-11-14] MEDS: amLODIPine 10 MG TAB PO SCH (19:56)
[2021-11-14] MEDS: ATORVASTATIN 80 MG TAB PO SCH (19:56)
[2021-11-15] MEDS: MORPHINE SULFATE 4 MG/ML SYRINGE IV PRN ×4 (02:01→23:35)
--- NOTE | 2021-11-15 08:13 | P.PN ---
Subjective Progress Note Date: 11/15/21 Principal diagnosis: right femoral occlusion Chart reviewed. No changes. Objective - Vital Signs Vital signs: Vital Signs Temp 97.6 F 11/14/21 19:50 Pulse 66 11/15/21 04:05 Resp 18 11/15/21 04:05 BP 101/63 11/15/21 04:05 Pulse Ox 91 L 11/15/21 04:05 FiO2 Intake & Output 11/14/21 11/15/21 11/15/21 18:59 06:59 18:59 Intake Total 895.842 84.988 Output Total 1150 750 Balance -254.158 -665.012 Intake: Intake, IV Titration 195.842 84.988 Amount Heparin Sod,Pork in 0.45% 195.842 84.988 NaCl 25,000 unit In 0.45 % NaCl 1 250ml.bag @ 18 UNITS/KG/HR 17.118 mls/hr IV .[id number] [facility] Rx#: [id number] Oral 700 Output: Urine 1150 750 - Labs CBC & Chem 7: 11/14/21 10:52 11/13/21 07:40 Labs: Abnormal Lab Results - Last 24 Hours (Table) 11/14/21 11/14/21 11/14/21 Range/Units 10:52 10:52 17:50 RBC 4.26 L (4.30-5.90) m/uL MCV 101.7 H (80.0-100.0) fL APTT 70.6 H 70.8 H (22.0-30.0) sec 11/15/21 11/15/21 Range/Units 00:32 07:42 RBC (4.30-5.90) m/uL MCV (80.0-100.0) fL APTT 59.8 H 57.4 H (22.0-30.0) sec Assessment and Plan Assessment: Right femoral artery occlusion Peripheral arterial disease history of left lower extremity revascularization Plan: OR tomorrow with Dr. Paredes.
[2021-11-15] MEDS: BACLOFEN 10 MG TAB PO SCH ×2 (08:48→20:27)
[2021-11-15] MEDS: METOPROLOL TARTRATE 25 MG TAB PO SCH ×2 (08:48→20:27)
[2021-11-15] MEDS: GABAPENTIN 300 MG CAP PO SCH ×2 (08:48→20:27)
[2021-11-15] MEDS: EZETIMIBE 10 MG TAB PO SCH (08:48)
[2021-11-15] MEDS ORDERED: LOSARTAN 50 MG TAB PO SCH (09:00)
[2021-11-15] MEDS: SYMBICORT 160-4.5 MCG INHALER INHALATION SCH ×2 (10:14→20:35)
[2021-11-15] MEDS: ALBUTEROL HFA INHALER INHALATION PRN ×2 (10:15→20:35)
[2021-11-15] MEDS: oxyCODONE-APAP 10-325MG 1 EACH TAB PO PRN ×2 (10:26→20:27)
--- NOTE | 2021-11-15 10:28 | P.PN ---
Subjective 66-year-old male came in the for peripheral vascular disease patient will angiography of the right leg and possible angioplasty and thrombolysis of the right leg. Patient has severe or progressive disease quit smoking many years ago and recently underwent left iliac artery intervention started having tingling pain in the right lower extremity found to have feeble pulses cold right lower extremity. Medicine was consulted for management of hypertension. Patient is not well controlled in the right lower extremity and patient uses a Xarelto at home, presently on IV heparin. It is in the past does have coronary artery disease. 11/16/2019 patient's pain is well controlled at this time patient did have a bowel movement will start him on MiraLAX on as-needed basis for constipation due to opiates. Constitutional: Denied any fatigue denied any fever. Cardio vascular: denied any chest pain, palpitations Gastrointestinal denied any nausea vomiting Pulmonary: Denied any shortness of breath cough Neurologic denied any new focal deficits All inpatient medications were reviewed and appropriate changes in these medications as dictated in the interval history and assessment and plan. PHYSICAL EXAMINATION: GENERAL: The patient is alert and oriented x3, not in any acute distress. Well developed, well nourished. HEENT: Pupils are round and equally reacting to light. EOMI. No scleral icterus. No conjunctival pallor. Normocephalic, atraumatic. No pharyngeal erythema. No thyromegaly. CARDIOVASCULAR: S1 and S2 present. No murmurs, rubs, or gallops. PULMONARY: Chest is clear to auscultation, no wheezing or crackles. ABDOMEN: Soft, nontender, nondistended, normoactive bowel sounds. No palpable organomegaly. MUSCULOSKELETAL: No joint swelling or deformity. EXTREMITIES: No cyanosis, clubbing, or pedal edema. NEUROLOGICAL: Gross neurological examination did not reveal any focal deficits. SKIN: No rashes. Assessment and plan -Severe peripheral vascular disease involving the right leg mostly right femoral artery: Continue the IV heparin for the management as per vascular surgery. It is better controlled with May tens. -Hypertension patient's blood pressure is within normal limits actually on the low normal to cut down the dose of amlodipine and discontinue losartan -History of DVT in the past Xarelto is being held at this time patient will be continued on IV heparin -Coronary artery disease -COPD without any acute exacerbation -Hyperlipidemia -Hypertension -Osteoarthritis DVT prophylaxis: On IV heparin Objective - Vital Signs Vital signs: Vital Signs Temp 97.6 F 11/14/21 19:50 Pulse 66 11/15/21 04:05 Resp 18 11/15/21 04:05 BP 101/63 11/15/21 04:05 Pulse Ox 91 L 11/15/21 04:05 FiO2 Intake & Output 11/14/21 11/15/21 11/15/21 18:59 06:59 18:59 Intake Total 895.842 84.988 92.532 Output Total 1150 750 Balance -254.158 -665.012 92.532 Intake: Intake, IV Titration 195.842 84.988 92.532 Amount Heparin Sod,Pork in 0.45% 195.842 84.988 92.532 NaCl 25,000 unit In 0.45 % NaCl 1 250ml.bag @ 18 UNITS/KG/HR 17.118 mls/hr IV .[id number] [facility] Rx#: [id number] Oral 700 Output: Urine 1150 750 - Labs CBC & Chem 7: 11/14/21 10:52 11/13/21 07:40 Labs: Abnormal Lab Results - Last 24 Hours (Table) 11/14/21 11/14/21 11/14/21 Range/Units 10:52 10:52 17:50 RBC 4.26 L (4.30-5.90) m/uL MCV 101.7 H (80.0-100.0) fL APTT 70.6 H 70.8 H (22.0-30.0) sec 11/15/21 11/15/21 Range/Units 00:32 07:42 RBC (4.30-5.90) m/uL MCV (80.0-100.0) fL APTT 59.8 H 57.4 H (22.0-30.0) sec
[2021-11-15] MEDS: HEPARIN SOD,PORK IN 0.45% NACL 25,000 UNIT in 0.45% NACL 1 250ML.BAG IV SCH (12:40)
[2021-11-15] MEDS: SODIUM CHLORIDE 0.9% 1,000 ML IV SCH ×2 (15:38→16:52)
[2021-11-15] MEDS: ATORVASTATIN 80 MG TAB PO SCH (20:27)
[2021-11-15] MEDS: amLODIPine 5 MG TAB PO SCH (20:27)
[2021-11-16] MEDS: oxyCODONE-APAP 10-325MG 1 EACH TAB PO PRN ×2 (05:45→21:58)
[2021-11-16] MEDS: GABAPENTIN 300 MG CAP PO SCH ×2 (05:49→19:59)
[2021-11-16] MEDS: EZETIMIBE 10 MG TAB PO SCH (05:49)
[2021-11-16] MEDS: METOPROLOL TARTRATE 25 MG TAB PO SCH ×2 (05:49→19:59)
[2021-11-16] MEDS: BACLOFEN 10 MG TAB PO SCH ×2 (05:49→19:59)
[2021-11-16 06:12] LABS: Glucose,Whole Blood 104 mg/dL (75-99)
[2021-11-16] MEDS: SODIUM CHLORIDE 0.9% 1,000 ML IV SCH ×2 (08:12→19:55)
[2021-11-16] MEDS: HEPARIN SOD,PORK IN 0.45% NACL 25,000 UNIT in 0.45% NACL 1 250ML.BAG IV SCH (08:17)
[2021-11-16] MEDS ORDERED: IPRATROPIUM-ALBUTEROL 3 ML NEB INHALATION PRN (08:57)
[2021-11-16] MEDS: PANTOPRAZOLE 40 MG/10 ML VIAL IVP SCH (09:12)
[2021-11-16] MEDS: MORPHINE SULFATE 4 MG/ML SYRINGE IV PRN ×3 (09:16→19:59)
[2021-11-16] MEDS: SYMBICORT 160-4.5 MCG INHALER INHALATION SCH ×2 (09:35→21:11)
[2021-11-16] MEDS: IPRATROPIUM-ALBUTEROL 3 ML NEB INHALATION SCH ×4 (09:35→21:12)
--- NOTE | 2021-11-16 13:21 | P.PN ---
Subjective Progress Note Date: 11/16/21 NPO, scheduled for a right femoral thrombectomy with possibly patch angioplasty today with vascular surgery. PTT 45.6. Complains of right ankle and hip pain with exertion. Denies chest pain, palpitations or shortness of breath. Afebrile. Objective - Vital Signs Vital signs: Vital Signs Temp 97.7 F 11/16/21 08:00 Pulse 60 11/16/21 09:47 Resp 18 11/16/21 08:00 BP 156/74 11/16/21 08:00 Pulse Ox 89 L 11/16/21 08:00 FiO2 Intake & Output 11/15/21 11/16/21 11/16/21 18:59 06:59 18:59 Intake Total 137.877 0 250 Output Total 650 400 Balance -512.123 -400 250 Weight 95.5 kg Intake: Intake, IV Titration 137.877 250 Amount Heparin Sod,Pork in 0.45% 137.877 250 NaCl 25,000 unit In 0.45 % NaCl 1 250ml.bag @ 18 UNITS/KG/HR 17.118 mls/hr IV .[id number] [facility] Rx#: [id number] Oral 0 Output: Urine 650 400 Other: Voiding Method Urinal Urinal - Exam PHYSICAL EXAM: VITAL SIGNS: As above GENERAL: Sitting up in bed, no acute distress HEENT: Conjunctivae normal. eyes normal. NECK: No JVD. No thyroid enlargement. No LNs CARDIOVASCULAR: S1, S2 regular.. No murmur RESPIRATION: Breath sounds diminished in the bases. No rhonchi or crackles. No bronchial breathing. ABDOMEN: Soft, nontender . No guarding. no masses palpable. No hepatosplenomegaly.Bowel sounds heard. LEGS: No palpable Right PT or DP pulses, no edema. PSYCHIATRY: Alert and oriented X3, mood and affect normal. NERVOUS SYSTEM: Cranial N 2-12 grossly normal. No focal deficits. Skin: Warm and dry, no rash Joints: No active swelling. No inflammation. Lymphatic system. No LN neck axilla or groin. - Labs CBC & Chem 7: 11/14/21 10:52 11/13/21 07:40 Labs: Abnormal Lab Results - Last 24 Hours (Table) 11/16/21 11/16/21 Range/Units 06:11 06:14 APTT 45.6 H (22.0-30.0) sec POC Glucose (mg/dL) 104 H (75-99) mg/dL Assessment and Plan Assessment: Severe peripheral arterial disease with Right femoral artery occlusion Hypertension Hyperlipidemia Osteoarthritis CAD COPD, stable History of DVT, Xarelto on hold Plan: Continue on current medication regime ,monitoring and symptomatic treatment. Revascularization with thrombectomy scheduled for today as mentioned above. Pain management. Aggressive pulmonary toileting with incentive spirometer and nebulized bronchodilators ordered. PPI for GI prophylaxis ordered. The impression and plan of care has been dictated as directed. : I performed a history and examination of this patient, discussed the same with the dictator. I agree with the dictator's note ,documented as a scribe. Any additional findings or plans will be noted.
[2021-11-16] MEDS ORDERED: IV FLUID CONTINUATION 1,000 ML IV ONE (13:22)
[2021-11-16 13:33] LABS: Glucose,Whole Blood 88 mg/dL (75-99)
[2021-11-16] MEDS ORDERED: ONDANSETRON 4 MG/2 ML VIAL ONE (13:36)
[2021-11-16] MEDS ORDERED: ONDANSETRON 4 MG/2 ML VIAL IVP ONE (13:41)
[2021-11-16] MEDS ORDERED: DEXAMETHASONE SOD PHOSPHATE 4 MG/ML 1 ML VIAL IVP ONE (13:41)
[2021-11-16] MEDS ORDERED: MORPHINE SULFATE 4MG/4ML SYRG IVP ONE (14:09)
[2021-11-16] MEDS ORDERED: PHENYLEPHRINE-0.9% NACL SYG 1,000 MCG/10 ML SYRINGE ONE (15:13)
[2021-11-16] MEDS ORDERED: PROPOFOL 10 MG/ML 20 ML VIAL IV ONE (15:13)
[2021-11-16] MEDS ORDERED: ROCURONIUM 10 MG/ML (5 ML VIAL) IV ONE (15:13)
[2021-11-16] MEDS ORDERED: LIDOCAINE 2% INJ 20 MG/ML (2 ML VIAL) ONE (15:13)
[2021-11-16] MEDS ORDERED: HEPARIN SODIUM,PORCINE 10,000 UNIT/ML 1 ML VIAL ONE (15:13)
[2021-11-16] MEDS ORDERED: MIDAZOLAM 2 MG/2 ML VIAL ONE (15:13)
[2021-11-16] MEDS ORDERED: PROTAMINE SULFATE 10 MG/ML 5 ML VIAL IV ONE (15:13)
[2021-11-16] MEDS ORDERED: SUGAMMADEX SODIUM 200 MG/2 ML SDV IV ONE (15:13)
[2021-11-16] MEDS ORDERED: SUCCINYLCHOLINE CHLORIDE 100 MG/5 ML SYR IV ONE (15:13)
[2021-11-16] MEDS ORDERED: NEOSTIGMINE 1 MG/ML 10 ML VIAL ONE (15:13)
[2021-11-16] MEDS ORDERED: GLYCOPYRROLATE 0.2 MG/ML 2 ML VIAL ONE (15:13)
[2021-11-16] MEDS ORDERED: ePHEDrine 50 MG/ML 1 ML VIAL ONE (15:13)
[2021-11-16] MEDS ORDERED: fentaNYL (PF) 50 MCG/ML 2 ML AMP ONE (15:13)
[2021-11-16] MEDS ORDERED: SODIUM CHLORIDE 0.9% 100 ML with ceFAZolin 2,000 MG IV ONE ×2 (15:18)
[2021-11-16] MEDS ORDERED: HEPARIN SODIUM (1,000 UNIT/ML) 10,000 UNIT in SODIUM CHLORIDE 0.9% 1,000 ML IRRIGATION ONE (15:18)
[2021-11-16] MEDS ORDERED: ceFAZolin 2,000 MG in SODIUM CHLORIDE 0.9% 500 ML IRRIGATION ONE ×4 (16:12)
[2021-11-16] MEDS ORDERED: LACTATED RINGERS 1,000 ML IV ONE (16:20)
[2021-11-16] MEDS ORDERED: GELATIN SPONGE,ABSORB (LARGE) 1 EACH SPONGE TOPICAL ONE (16:52)
[2021-11-16] MEDS ORDERED: THROMBIN (BOVINE) 5,000 UNIT VIAL TOPICAL ONE (16:52)
--- NOTE | 2021-11-16 17:25 | P.OP ---
Date of Procedure: 11/16/21 Preoperative Diagnosis: Right common femoral artery thrombosis with secondary arterial insufficiency of the right lower extremity. Postoperative Diagnosis: Same. Procedure(s) Performed: Right common femoral thromboendarterectomy with patch angioplasty Right iliac thrombectomy. Anesthesia: ROULA Surgeon: Allen Paredes Unclaimed Property Manager #1: Reinier Garcia Estimated Blood Loss (ml): 75 Pathology: other (Right femoral plaque and thrombus) Condition: stable Disposition: no change Indications for Procedure: Patient is a 66 old male who had undergone a left femoral balloon angioplasty via a right femoral artery approach. Shortly after the procedure he began to experience some discomfort. He presented to the office last with a complaint of right lower extremity discomfort. Physical examination was consistent with a right common femoral artery occlusion most likely secondary to closure device. Patient did undergo angiography with attempts at balloon dilation which was unsuccessful. Patient is now offered open repair. The procedure, risk and benefits were discussed. All questions were answered. Patient wished to proceed. Description of Procedure: Patient was brought the upper and placed in the supine position and administered general endotracheal anesthesia delivered by the department anesthesiology. The patient received intravenously administered antibiotics in the perioperative phase. Corral catheter is placed to gravity drainage. The patient's right lower extremity lower abdominal area sterilely prepped and draped in usual manner. Skin incision was made overlying the common femoral artery and carried down through subcu change tissues. Hemostasis was achieved using electrocautery. Lymphatic layer was divided laterally swept medially. Significant inflammatory response was identified in the soft tissues secondary to previous multiple femoral artery access. Eventually the common femoral artery at the inguinal ligament was identified dissected free of investing tissues and encircled Vess eloops. The dissection was then carried down to the bifurcation of the common femoral into the profundus and superficial femoral arteries. The segments were also encircled Vesseloops. The patient received 7500 units of heparin and after adequate circulation time vessel loops are drawn closed. Arteriotomy was made in the common and extended from the proximal portion of the common down to the origin of the superficial femoral artery. Large amount of plaque and thrombus was identified. A 4-Tajik Corral catheter was extended into the external iliac artery and thrombectomy was performed which resulted in normal arterial inflow. Thromboendarterectomy was then started at the common femoral level extended inferiorly. The distal end was transected. Retraction endarterectomy was performed on the profundus with markedly improved backbleeding noted. The plaque and thrombus was sent to the department of pathology. The plaque at the proximal superficial femoral artery was tacked with 7-0 Prolene suture. The remaining luminal surface was inspected for any loose or free-floating material and this was removed where identified. Patch angioplasty closure. Utilizing bovine pericardial patch and 6-0 Prolene suture was completed in running fashion. Just prior to completion of the anastomotic line the profundus and superficial femoral arteries were backbled and the clamp controlling the common femoral was released thus flushing any potential debris out of the intraluminal segment. Arteriotomy closure was completed. Backbleeding through the profundus was allowed to occur. Clamp on the common was released flushing any potential debris into the profundus system. Vessel loops surrounding the superficial femoral artery was then released. One point of bleeding along the anastomotic line was identified this was controlled easily with 6-0 Prolene suture. The patient did receive 25 mg of protamine to reverse the heparin effect. The wound scope she irrigated with antibiotic containing solution. Deep tissues were closed in multiple layers with 2-0 Vicryl suture. Skin edges were reapproximated with 4-0 Monocryl. Proper dressings were applied. Patient tolerated procedure well awoke without apparent issue and was transferred to the recovery area satisfactory and stable condition.
[2021-11-16] MEDS ORDERED: ALBUTEROL NEBULIZED 2.5 MG/3 ML INHALATION ONE (17:44)
[2021-11-16] MEDS: SENNOSIDES-DOCUSATE SODIUM 1 EACH TAB PO SCH ×2 (18:20→19:59)
[2021-11-16] MEDS: ATORVASTATIN 80 MG TAB PO SCH (19:59)
[2021-11-16] MEDS: amLODIPine 5 MG TAB PO SCH (19:59)
[2021-11-16] MEDS: RIVAROXABAN 2.5 MG TABLET PO SCH (21:23)
[2021-11-17] MEDS: MORPHINE SULFATE 4 MG/ML SYRINGE IV PRN ×5 (01:32→21:11)
[2021-11-17] MEDS: oxyCODONE-APAP 10-325MG 1 EACH TAB PO PRN (06:19)
[2021-11-17] MEDS: SYMBICORT 160-4.5 MCG INHALER INHALATION SCH ×2 (07:23→19:23)
[2021-11-17] MEDS: IPRATROPIUM-ALBUTEROL 3 ML NEB INHALATION SCH ×4 (07:23→19:23)
--- NOTE | 2021-11-17 09:06 | XR ---
EXAMINATION TYPE: XR chest 1V portable DATE OF EXAM: 11/17/2021 Comparison: 02/05/2021, 03/09/2021 Clinical History: 66-year-old male hypoxia Findings: The heart is borderline in size. Interstitial prominence. Low lung volumes. Left base underpenetrated and not well assessed. Impression: Borderline heart size and limitations due to hypoventilatory changes. Left base is underpenetrated an d not well assessed. Recommend follow-up after improved inspiratory effort.
[2021-11-17] MEDS: PANTOPRAZOLE 40 MG/10 ML VIAL IVP SCH (10:33)
[2021-11-17] MEDS: SODIUM CHLORIDE 0.9% 1,000 ML IV SCH (10:34)
[2021-11-17] MEDS: BACLOFEN 10 MG TAB PO SCH ×2 (10:36→21:12)
[2021-11-17] MEDS: RIVAROXABAN 2.5 MG TABLET PO SCH ×2 (10:36→21:12)
[2021-11-17] MEDS: SENNOSIDES-DOCUSATE SODIUM 1 EACH TAB PO SCH ×2 (10:36→21:12)
[2021-11-17] MEDS: GABAPENTIN 300 MG CAP PO SCH ×2 (10:37→21:12)
[2021-11-17] MEDS: THIAMINE 100 MG TAB PO SCH (10:37)
[2021-11-17] MEDS: METOPROLOL TARTRATE 25 MG TAB PO SCH ×2 (10:37→21:12)
[2021-11-17] MEDS: EZETIMIBE 10 MG TAB PO SCH (10:39)
[2021-11-17 10:48] LABS: HCT 39.9 % (39.0-53.0); HGB 13.3 gm/dL (13.0-17.5); MCH 34.2 pg (25.0-35.0); MCHC 33.2 g/dL (31.0-37.0); MCV 102.8 fL (80.0-100.0); Macrocytosis Slight; Mean Platelet Volume 7.3; Platelet Count 155 k/uL (150-450); RBC 3.89 m/uL (4.30-5.90); RDW 13.4 % (11.5-15.5); WBC 7.9 k/uL (3.8-10.6)
[2021-11-17 11:06] LABS: African American GFR (CKD) >90 (>60 ml/min/1.73 sqM); Anion Gap 10 mmol/L; Blood Urea Nitrogen 14 mg/dL (9-20); Carbon Dioxide 22 mmol/L (22-30); Chloride 101 mmol/L (98-107); Glucose 114 mg/dL (74-99); Non-African American GFR(CKD) >90 (>60 ml/min/1.73 sqM); Sodium 133 mmol/L (137-145)
--- NOTE | 2021-11-17 11:52 | P.PN ---
Subjective Progress Note Date: 11/17/21 Principal diagnosis: Right common femoral artery thrombosis with secondary arterial insufficiency The patient is seen and examined is a follow-up for postop day #1 for right common femoral thromboendarterectomy with patch angioplasty and right iliac thrombectomy area apparently during recovery the patient was requiring some increased oxygenation. Today he is on Ventimask, with normal respirations. Oxygen saturation 99% FiO2 50. He denies any shortness breath or chest pain. States his leg is feeling better. He has feeling, no pain just some discomfort in the right groin. He is able to move his right lower extremity. He's been afebrile. WBC 7.9 hemoglobin 13 sodium 133 potassium 4.0 BUN 14 creatinine 0.78 Objective - Vital Signs Vital signs: Vital Signs Temp 98 F 11/17/21 04:45 Pulse 62 11/17/21 07:35 Resp 20 11/17/21 04:45 BP 122/59 11/17/21 04:45 Pulse Ox 94 L 11/17/21 07:26 FiO2 50 11/17/21 07:26 Intake & Output 11/16/21 11/17/21 11/17/21 18:59 06:59 18:59 Intake Total 1962 140 Output Total 775 700 Balance 1187 -560 Weight 95.5 kg Intake: IV 1712 20 Invasive Line 2 10 20 Sodium Chloride 0.9% 1, 600 000 ml @ 75 mls/hr IV . [id number] [facility] Rx#:[id number] Intake, IV Titration 250 Amount Heparin Sod,Pork in 0.45% 250 NaCl 25,000 unit In 0.45 % NaCl 1 250ml.bag @ 18 UNITS/KG/HR 17.118 mls/hr IV .[id number] [facility] Rx#: [id number] Oral 0 120 Output: Urine 700 700 Uretheral (Corral) 700 Estimated Blood Loss 75 Other: Voiding Method Urinal - Exam General appearance: The patient is alert, oriented, appears in no acute distress. HET: Head is normocephalic and atraumatic. Pupils are equal and reactive. Neck: Supple without lymphadenopathy. Trachea midline. No audible carotid bruit. Heart: S1 S2. Regular rate and rhythm. Lungs: Equal entry. Normal respirations. Decreased lung sounds. Abdomen: Soft, nontender, nondistended. Extremities: Normal skin color and turgor. Right lower extremity warm to the touch, good capillary refill. Right groin with some ecchymosis and tenderness. Multiphasic popliteal, posterior tibialis and dorsalis pedis signal. Patient has full range of motion of right lower extremity. Neurological: No focal deficits. Strength and sensation are grossly intact. - Labs CBC & Chem 7: 11/17/21 09:49 11/17/21 09:49 Assessment and Plan Assessment: 1. Postop day #1 Right common femoral thromboendarterectomy with patch angioplasty and right iliac thrombectomy 2. Right common femoral artery thrombosis with secondary arterial insufficiency of the right lower extremity 3. Peripheral arterial disease 4. History COPD 5. Hypertension 6. Hyperlipidemia 7. Coronary artery disease 8. History DVT on Xarelto Plan: 1. Physical therapy consulted 2. Pulmonology consulted appreciate their recommendations 3. Continue with recommendations from the primary medicine team 4. Resume home meds including Xarelto 5. Increase ambulation as tolerated 6. Patient may have heart healthy diet The impression and plan of care has been dictated as directed. I performed a history and examination of this patient, discussed the same with the dictator. I agree with the dictator's note ,documented as a scribe. Any additional findings or plans will be noted.
--- NOTE | 2021-11-17 13:22 | P.CNPUL ---
History of Present Illness Consult date: 11/17/21 Chief complaint: Acute hypoxic respiratory failure History of present illness: This is a 66-year-old white male patient with history of mild COPD, baseline FEV1 of 85% of predicted as of 2019, former smoker, hypertension, hyperlipidemia, previous history of myocardial infarction, coronary artery disease, DVT in the left leg, history of COVID-19 pneumonia in March 2021, recovered, peripheral vascular disease with previous left femoral to tibial bypass, and carotid artery stenosis. Patient is on Xarelto 2.5 mg twice daily for history of CAD, PVD, and left leg DVT. Patient recently underwent a left lower leg angiogram and iliac artery intervention of the left side via right femoral access. Patient has developed increasing pain of his right lower extremity with tingling in his foot, and upon follow-up with vascular surgery was found to have no evidence of femoral pulse and was scheduled for vascular intervention including angioplasty, and possible thrombolysis. On 11/13/2021 he had aortogram, right lower extremity angiogram with catheter placement at common femoral artery, and patient was found to have right, femoral artery patent with abrupt occlusion just beyond what appeared to be the inferior epigastric artery takeoff. The multiple times were made to traverse the area of occlusion but were unsuccessful, and catheters were then removed, and the sheath was removed, and patient was transferred back to recovery. Vascular surgery recommended surgical intervention for open femoral endarterectomy at the femoral vessel and possible patch angioplasty. On 11/16/2021 patient underwent right common femoral thromboendarterectomy with patch angioplasty and right iliac thrombectomy by Dr. Teague. Following the procedure patient required oxygen, but no increasing shortness of breath, no increasing cough or congestion or phlegm production. Chest x-ray was obtained today on 11/17/2021 showing borderline heart size, hypoventilatory changes, left lung underpenetrated and not well assessed, there was record a follow-up after improved inspiratory effort. 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 He is requesting to be on the Ventimask instead of nasal cannula due to his right nasal passageway occlusion or narrowing. Today's labs been reviewed showing white blood cell count is 7.9, hemoglobin is 13.3, sodium is 133, the rest of electrolytes and renal profile are within normal limits. Patient is off his Xarelto, he continues on heparin infusion, and IV fluids with 0.9 with same at 75 ML per hour, patient continues on his home dose Symbicort, and DuoNeb on an as-needed basis. he is breathing comfortably. He appears to be in no acute distress, no rhonchi or wheezing, no chest congestion or chest pain no hemoptysis. Review of Systems All systems: negative Constitutional: Denies chills, Denies fever Eyes: denies blurred vision, denies pain Ears, nose, mouth and throat: Denies headache, Denies sore throat Cardiovascular: Denies chest pain, Denies shortness of breath Respiratory: Denies cough Gastrointestinal: Denies abdominal pain, Denies diarrhea, Denies nausea, Denies vomiting Musculoskeletal: Denies myalgias Integumentary: Denies pruritus, Denies rash Neurological: Denies numbness, Denies weakness Psychiatric: Denies anxiety, Denies depression Endocrine: Denies fatigue, Denies weight change Past Medical History Past Medical History: Coronary Artery Disease (CAD), COPD, CVA/TIA, Deep Vein Thrombosis (DVT), Hyperlipidemia, Hypertension, Myocardial Infarction (NH), Osteoarthritis (OA), Vascular Disorder Additional Past Medical History / Comment(s): dvt left leg, COVID 02/2021, TIA-no residual effects, gallstones, kidney stones Last Myocardial Infarction Date:: 04/20/20 History of Any Multi-Drug Resistant Organisms: None Reported Past Surgical History: Heart Catheterization With Stent, Hernia Repair, Joint Replacement, Orthopedic Surgery Additional Past Surgical History / Comment(s): abd. aortogram 09/04/20, L Fem- pop bypass with stent, christy carotid endarterectomy, christy knee arthroscopy, rt hip replacement, one cardiac stent, surgery in October 2021 L lower extrem runoff with ballon angioplasty. Past Anesthesia/Blood Transfusion Reactions: No Reported Reaction Date of Last Stent Placement:: 08/2017 Past Psychological History: No Psychological Hx Reported Smoking Status: Former smoker Past Alcohol Use History: Occasional Additional Past Alcohol Use History / Comment(s): quit smoking 2008, smoked 30- 40 yrs, 1 PPD Past Drug Use History: None Reported - Past Family History Father Family Medical History: Cancer Additional Family Medical History / Comment(s): lung Brother(s) Family Medical History: Cancer Son(s) Family Medical History: Cancer Medications and Allergies Home Medications Medication Instructions Recorded Confirmed Type Gabapentin [Neurontin] 600 mg PO BID 04/21/15 11/13/21 History HYDROcodone/APAP 10-325MG [[place] 1 tab PO QID PRN 04/21/15 11/13/21 History 10-325] amLODIPine [Norvasc] 10 mg PO HS 04/21/15 11/13/21 History EPINEPHrine (Auto Inject) [Epipen] 0.3 mg IM ONCE PRN 05/25/19 11/12/21 History Rivaroxaban [Xarelto] 2.5 mg PO BID 04/21/20 11/12/21 History Nitroglycerin Sl Tabs [Nitrostat] 0.4 mg SUBLINGUAL Q5M PRN #60 tab 04/22/20 11/12/21 Rx Biotin 5 mg PO HS 09/01/20 11/13/21 History Ezetimibe [Zetia] 10 mg PO DAILY 09/01/20 11/13/21 History Metoprolol Tartrate [Lopressor] 25 mg PO BID 09/01/20 11/13/21 History Albuterol Sulfate [Ventolin HFA] 2 puff INHALATION RT-BID PRN 02/03/21 11/13/21 History Budesonide/Formoterol Fumarate 2 puff INHALATION RT-BID 02/03/21 11/13/21 History [Symbicort 160-4.5 Mcg Inhaler] Losartan Potassium [Cozaar] 100 mg PO DAILY 02/03/21 11/13/21 History Thiamine [Vitamin B-1] 100 mg PO DAILY #30 tab 02/05/21 11/13/21 Rx Baclofen [Lioresal] 20 mg PO BID 10/20/21 11/13/21 History Clopidogrel [Plavix] 75 mg PO HS 10/20/21 11/13/21 History Rosuvastatin Calcium [Crestor] 40 mg PO HS 10/20/21 11/13/21 History Allergies Allergy/AdvReac Type Severity Reaction Status Date / Time venom-honey bee Allergy Anaphylaxis Verified 11/16/21 13:26 [bee venom (honey bee)] Physical Exam Vitals: Vital Signs Temp Pulse Pulse Pulse Pulse Resp BP 11/17/21 12:24 97.7 F 74 20 162/74 11/17/21 11:17 70 11/17/21 11:07 74 11/17/21 10:46 11/17/21 07:45 98.2 F 60 20 160/66 11/17/21 07:35 62 11/17/21 07:26 11/17/21 07:23 60 11/17/21 04:45 98 F 52 L 20 122/59 11/17/21 01:38 18 11/17/21 01:36 11/16/21 23:35 75 18 148/68 11/16/21 22:35 81 19 146/67 11/16/21 21:35 84 17 141/68 11/16/21 21:12 80 11/16/21 21:05 79 18 142/66 11/16/21 20:35 75 19 142/68 11/16/21 20:20 80 20 168/73 11/16/21 20:05 77 19 138/65 11/16/21 19:50 76 20 143/66 11/16/21 19:12 78 20 139/64 11/16/21 18:59 76 16 95/69 11/16/21 18:50 78 16 96/58 11/16/21 18:30 75 16 92/60 11/16/21 18:11 98.4 F 74 17 103/59 11/16/21 18:10 74 17 103/59 11/16/21 18:00 76 20 112/64 11/16/21 17:49 77 11/16/21 17:48 80 18 112/64 11/16/21 17:33 97.8 F 92 22 124/74 11/16/21 13:10 98.4 F 67 16 139/67 Pulse Ox FiO2 11/17/21 12:24 88 L 11/17/21 11:17 11/17/21 11:07 11/17/21 10:46 35 11/17/21 07:45 99 50 11/17/21 07:35 11/17/21 07:26 94 L 50 11/17/21 07:23 11/17/21 04:45 91 L 50 11/17/21 01:38 92 L 50 11/17/21 01:36 92 L 50 11/16/21 23:35 90 L 11/16/21 22:35 88 L 11/16/21 21:35 91 L 11/16/21 21:12 11/16/21 21:05 90 L 11/16/21 20:35 88 L 11/16/21 20:20 90 L 11/16/21 20:05 89 L 11/16/21 19:50 89 L 11/16/21 19:12 88 L 11/16/21 18:59 90 L 11/16/21 18:50 92 L 11/16/21 18:30 91 L 11/16/21 18:11 95 11/16/21 18:10 95 11/16/21 18:00 93 L 11/16/21 17:49 11/16/21 17:48 98 11/16/21 17:33 93 L 11/16/21 13:10 93 L Intake and Output 11/16/21 11/17/21 11/17/21 22:59 06:59 14:59 Intake Total 1032 910 270 Output Total 475 700 Balance 557 210 270 Intake: IV 912 910 10 Invasive Line 2 10 10 10 Sodium Chloride 0.9% 1, 900 000 ml @ 75 mls/hr IV . [id number] [facility] Rx#:[id number] Oral 120 260 Output: Urine 400 700 Uretheral (Corral) 700 Estimated Blood Loss 75 Other: Voiding Method Urinal Urinal Weight 95.5 kg 95.5 kg GENERAL EXAM: Alert, very pleasant, 66-year-old white male, on 35% Ventimask satting 96% comfortable in no apparent distress. HEAD: Normocephalic/atraumatic. EYES: Normal reaction of pupils, equal size. Conjunctiva pink, sclera white. NOSE: Clear with pink turbinates. THROAT: No erythema or exudates. NECK: No masses, no JVD, no thyroid enlargement, no adenopathy. CHEST: No chest wall deformity. Symmetrical expansion. LUNGS: Equal air entry with no crackles, wheeze, rhonchi or dullness. CVS: Regular rate and rhythm, normal S1 and S2, no gallops, no murmurs, no rubs ABDOMEN: Soft, nontender. No hepatosplenomegaly, normal bowel sounds, no guarding or rigidity. EXTREMITIES: No clubbing, no edema, no cyanosis, 2+ pulses and upper and lower extremities. MUSCULOSKELETAL: Muscle strength and tone normal. SPINE: No scoliosis or deformity SKIN: No rashes CENTRAL NERVOUS SYSTEM: Alert and oriented -3. No focal deficits, tone is normal in all 4 extremities. PSYCHIATRIC: Alert and oriented -3. Appropriate affect. Intact judgment and insight. Results - Laboratory Findings CBC and BMP: 11/17/21 09:49 11/17/21 09:49 PT/INR, D-dimer PT 11.4 sec (9.0-12.0) 11/13/21 12:17 INR 1.1 (<1.2) 11/13/21 12:17 Abnormal lab findings: Abnormal Labs 11/13/21 11/13/21 11/13/21 07:40 07:40 17:17 RBC MCV 102.0 H APTT 51.7 H Sodium Chloride 109 H Carbon Dioxide 21 L Glucose 115 H POC Glucose (mg/dL) 11/14/21 11/14/21 11/14/21 10:52 10:52 17:50 RBC 4.26 L MCV 101.7 H APTT 70.6 H 70.8 H Sodium Chloride Carbon Dioxide Glucose POC Glucose (mg/dL) 11/15/21 11/15/21 11/16/21 00:32 07:42 06:11 RBC MCV APTT 59.8 H 57.4 H Sodium Chloride Carbon Dioxide Glucose POC Glucose (mg/dL) 104 H 11/16/21 11/17/21 11/17/21 06:14 09:49 09:49 RBC 3.89 L MCV 102.8 H APTT 45.6 H Sodium 133 L Chloride Carbon Dioxide Glucose 114 H POC Glucose (mg/dL) - Diagnostic Findings Chest x-ray: report reviewed, image reviewed Assessment and Plan Plan: Assessment: #1. Acute hypoxic respiratory failure, likely related to postoperative atelectasis, patient's COPD is stable, chest x-ray showing hypoventilatory changes, interstitial prominence, low lung volumes #2. Mild COPD with baseline FEV1 at 85% of predicted, stable at this time #3. 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 Peripheral arterial disease with previous intervention #5. History of hypertension #6. Hyperlipidemia #7. Coronary artery disease #8. History of DVT on several toe #9. History of COVID-19 pneumonia in March 2021, recovered #10. Former smoker, in remission Plan: Wean off FiO2 Encouraged the patient to sit up in bed, deep breathing cough, and use incentive spirometer Chest x-ray shows poor inspiratory effort, hypoventilatory lungs COPD is stable, continue home dose Symbicort , DuoNeb 4 times a day and as needed obtain home oxygen assessment patient came to consider for discharge home from pulmonary perspective plan patient is cleared by vascular surgery I have personally seen and examined the patient, performed the documentation and the assessment and plan as written. Number of minutes spent on the visit: [15] Time with Patient: Greater than 30
[2021-11-17] MEDS: ATORVASTATIN 80 MG TAB PO SCH (21:12)
[2021-11-17] MEDS: amLODIPine 5 MG TAB PO SCH (21:12)
[2021-11-17 23:46] VITALS: RESP 18
[2021-11-18] MEDS: SODIUM CHLORIDE 0.9% 1,000 ML IV SCH ×2 (00:31→10:52)
[2021-11-18] MEDS: SYMBICORT 160-4.5 MCG INHALER INHALATION SCH (08:27)
[2021-11-18] MEDS: IPRATROPIUM-ALBUTEROL 3 ML NEB INHALATION SCH ×3 (08:27→16:03)
[2021-11-18] MEDS ORDERED: TAMSULOSIN 0.4 MG CAP.ER.24H PO SCH (08:45)
[2021-11-18] MEDS: RIVAROXABAN 2.5 MG TABLET PO SCH (09:26)
[2021-11-18] MEDS: THIAMINE 100 MG TAB PO SCH (09:26)
[2021-11-18] MEDS: BACLOFEN 10 MG TAB PO SCH (09:26)
[2021-11-18] MEDS: GABAPENTIN 300 MG CAP PO SCH (09:26)
[2021-11-18] MEDS: SENNOSIDES-DOCUSATE SODIUM 1 EACH TAB PO SCH (09:26)
[2021-11-18] MEDS: PANTOPRAZOLE 40 MG/10 ML VIAL IVP SCH (09:27)
[2021-11-18] MEDS: METOPROLOL TARTRATE 25 MG TAB PO SCH (09:27)
[2021-11-18] MEDS: EZETIMIBE 10 MG TAB PO SCH (09:27)
[2021-11-18] MEDS: HYDROcodone/APAP 10-325MG 1 EACH TAB PO PRN ×2 (09:27→17:23)
[2021-11-18] MEDS: MORPHINE SULFATE 4 MG/ML SYRINGE IV PRN (09:28)
[2021-11-18 10:55] VITALS: BMI 29.3
--- NOTE | 2021-11-18 12:20 | P.DS ---
Providers Expected date of discharge: 11/18/21 Attending physician: Sintia Corral DO Consults: 11/13/21 14:38 Consult Physician Routine Consulting Provider: Aguila Melendez Consult Reason/Comments: Medical management, PRE-op for femoral endartectomy Do you want consulting provider notified?: Yes 11/17/21 07:50 Consult Physician Urgent Consulting Provider: Dina Canales Consult Reason/Comments: COPD, on 15 L O2 s/p JEWELRY POLISHER thromboendartectomy Do you want consulting provider notified?: Yes Primary care physician: Jacey [facility] Course: This is 66-year-old male known to Dr. Teague for history of peripheral arterial disease. He has previous history of left femoral to tibial bypass. Patient has been having increased right lower extremity pain and tingling in his foot. He underwent ultrasound-guided left brachial arterial axis aortogram right lower extremity angiogram with catheter placement at common femoral artery on 11/13/2021. It was determined he would require surgical intervention for right common femoral artery thrombosis with secondary arterial insufficiency of the right lower extremity. He underwent a right common femoral thromboendarterectomy with patch angioplasty and right iliac thrombectomy on 11/16/2021. He has been doing well since. He initially was requiring oxygen with Ventimask. Pulmonology and medicine have been following him. He does have a history of COPD which they state is stable. He is now 94-95% on room air. Plan is for discharge home today. He denies any shortness of breath, chest pain, abdominal pain, fevers or chills. He has increased movement of his right lower extremity, pain is improved. He has multiphasic Doppler signals, leg and foot are warm to the touch with good capillary refill. He has been up and ambulating. Voiding without difficulty. Pulmonology and primary medical team have cleared patient for discharge. No need for home oxygen. Plan is for discharge home. The impression and plan of care has been dictated as directed. Dr. Corral I performed a history and examination of this patient, discussed the same with the dictator. I agree with the dictator's note ,documented as a scribe. Any additional findings or plans will be noted. Procedures: Right common femoral thromboendarterectomy with patch angioplasty Right iliac thrombectomy. Ultrasound-guided left brachial artery access Aortogram Right lower extremity angiogram, catheter placement at common femoral arter Patient Condition at Discharge: Stable Plan - Discharge Summary Discharge Rx Participant: No New Discharge Prescriptions: New Sennosides-Docusate Sodium [Senokot-S] 2 each PO BID tab Tamsulosin [Flomax] 0.4 mg PO PC-BRKFST #30 cap Continue HYDROcodone/APAP 10-325MG [[place] 10-325] 1 tab PO QID PRN PRN Reason: Pain Gabapentin [Neurontin] 600 mg PO BID EPINEPHrine (Auto Inject) [Epipen] 0.3 mg IM ONCE PRN PRN Reason: Anaphylaxis Rivaroxaban [Xarelto] 2.5 mg PO BID Nitroglycerin Sl Tabs [Nitrostat] 0.4 mg SUBLINGUAL Q5M PRN #60 tab PRN Reason: Chest Pain Metoprolol Tartrate [Lopressor] 25 mg PO BID Ezetimibe [Zetia] 10 mg PO DAILY Biotin 5 mg PO HS Thiamine [Vitamin B-1] 100 mg PO DAILY #30 tab Baclofen [Lioresal] 20 mg PO BID Clopidogrel [Plavix] 75 mg PO HS Budesonide/Formoterol Fumarate [Symbicort 160-4.5 Mcg Inhaler] 2 puff INHALATION RT-BID Albuterol Sulfate [Ventolin HFA] 2 puff INHALATION RT-BID PRN PRN Reason: sob Rosuvastatin Calcium [Crestor] 40 mg PO HS Changed amLODIPine [Norvasc] 5 mg PO HS #0 Discontinued Losartan Potassium [Cozaar] 100 mg PO DAILY Discharge Medication List Gabapentin [Neurontin] 600 mg PO BID 04/21/15 [History] HYDROcodone/APAP 10-325MG [[place] 10-325] 1 tab PO QID PRN 04/21/15 [History] EPINEPHrine (Auto Inject) [Epipen] 0.3 mg IM ONCE PRN 05/25/19 [History] Rivaroxaban [Xarelto] 2.5 mg PO BID 04/21/20 [History] Nitroglycerin Sl Tabs [Nitrostat] 0.4 mg SUBLINGUAL Q5M PRN #60 tab 04/22/20 [Rx] Biotin 5 mg PO HS 09/01/20 [History] Ezetimibe [Zetia] 10 mg PO DAILY 09/01/20 [History] Metoprolol Tartrate [Lopressor] 25 mg PO BID 09/01/20 [History] Albuterol Sulfate [Ventolin HFA] 2 puff INHALATION RT-BID PRN 02/03/21 [History] Budesonide/Formoterol Fumarate [Symbicort 160-4.5 Mcg Inhaler] 2 puff INHALATION RT-BID 02/03/21 [History] Thiamine [Vitamin B-1] 100 mg PO DAILY #30 tab 02/05/21 [Rx] Baclofen [Lioresal] 20 mg PO BID 10/20/21 [History] Clopidogrel [Plavix] 75 mg PO HS 10/20/21 [History] Rosuvastatin Calcium [Crestor] 40 mg PO HS 10/20/21 [History] Sennosides-Docusate Sodium [Senokot-S] 2 each PO BID tab 11/18/21 [Rx] Tamsulosin [Flomax] 0.4 mg PO PC-BRKFST #30 cap 11/18/21 [Rx] amLODIPine [Norvasc] 5 mg PO HS #0 11/18/21 [Rx] Follow up Appointment(s)/Referral(s): Dina Canales MD [STAFF PHYSICIAN] - 1 Week Tino Alfonso MD [STAFF PHYSICIAN] - 1 Week Allen Paredes DO [Doctor of Osteopathic Medicine] - 2 Weeks Patient Instructions/Handouts: Angiography (DC), Procedural Sedation (ED) Activity/Diet/Wound Care/Special Instructions: You may shower but no tub bathing until cleared by vascular surgeon No heavy lifting greater than 5-10 pounds or strenuous activity No driving for 2 weeks Discharge Disposition: HOME SELF-CARE
[2021-11-18 12:39] VITALS: BP 131/66; TEMP 97.7
--- NOTE | 2021-11-18 12:59 | P.PN ---
Subjective Progress Note Date: 11/18/21 This is a 66-year-old white male patient with history of mild COPD, baseline FEV1 of 85% of predicted as of 2019, former smoker, hypertension, hyperlipidemia, previous history of myocardial infarction, coronary artery disease, DVT in the left leg, history of COVID-19 pneumonia in March 2021, recovered, peripheral vascular disease with previous left femoral to tibial bypass, and carotid artery stenosis. Patient is on Xarelto 2.5 mg twice daily for history of CAD, PVD, and left leg DVT. Patient recently underwent a left lower leg angiogram and iliac artery intervention of the left side via right femoral access. Patient has developed increasing pain of his right lower extremity with tingling in his foot, and upon follow-up with vascular surgery was found to have no evidence of femoral pulse and was scheduled for vascular intervention including angioplasty, and possible thrombolysis. On 11/13/2021 he had aortogram, right lower extremity angiogram with catheter placement at common femoral artery, and patient was found to have right, femoral artery patent with abrupt occlusion just beyond what appeared to be the inferior epigastric artery takeoff. The multiple times were made to traverse the area of occlusion but were unsuccessful, and catheters were then removed, and the sheath was removed, and patient was transferred back to recovery. Vascular surgery recommended surgical intervention for open femoral endarterectomy at the femoral vessel and possible patch angioplasty. On 11/16/2021 patient underwent right common femoral thromboendarterectomy with patch angioplasty and right iliac thrombectomy by Dr. Teague. Following the procedure patient required oxygen, but no increasing shortness of breath, no increasing cough or congestion or phlegm production. Chest x-ray was obtained today on 11/17/2021 showing borderline heart size, hypoventilatory changes, left lung underpenetrated and not well assessed, there was record a follow-up after improved inspiratory effort. 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 He is requesting to be on the Ventimask instead of nasal cannula due to his right nasal passageway occlusion or narrowing. Today's labs been reviewed show ing white blood cell count is 7.9, hemoglobin is 13.3, sodium is 133, the rest of electrolytes and renal profile are within normal limits. Patient is off his Xarelto, he continues on heparin infusion, and IV fluids with 0.9 with same at 75 ML per hour, patient continues on his home dose Symbicort, and DuoNeb on an as-needed basis. he is breathing comfortably. He appears to be in no acute distress, no rhonchi or wheezing, no chest congestion or chest pain no hemoptysis. On 11/18/2021 patient seen in follow-up on selective care unit, he is awake and alert, in no acute distress, yesterday home oxygen assessment does qualify the patient for home oxygen as the patient was satting 88% on room air at rest. However on today's evaluation patient has maintained stable O2 saturations at 94%, his breathing quite comfortably, no coughing, no wheezing. No fever or chills. He continues on Symbicort, nebulized bronchodilators. Patient has been ambulating, and maintaining stable O2 saturations at 95% on room air with ambulation. No acute events overnight, patient is back on Xarelto 2 and half milligrams twice daily. Patient denies any discomfort in his legs, vascular surgery is following. And right lower extremity is warm to touch, with good cap refill in the right groin has some ecchymosis and tenderness but no signs of hematoma. Objective - Vital Signs Vital signs: Vital Signs Temp 97.7 F 11/18/21 12:30 Pulse 81 11/18/21 12:30 Resp 18 11/18/21 12:30 BP 131/66 11/18/21 12:30 Pulse Ox 91 L 11/18/21 12:30 FiO2 35 11/17/21 16:28 Intake & Output 11/17/21 11/18/21 11/18/21 18:59 06:59 18:59 Intake Total 2300 240 590 Output Total 1550 2100 301 Balance 750 -1860 289 Weight 95.5 kg 95.5 kg Intake: IV 620 310 Invasive Line 2 20 10 Sodium Chloride 0.9% 1, 600 300 000 ml @ 75 mls/hr IV . [id number] [facility] Rx#:[id number] Oral 1680 240 280 Output: Urine 1550 2100 300 Uretheral (Corral) 1550 300 Stool 1 Other: Voiding Method Indwelling Catheter Indwelling Catheter # Voids 0 - Exam GENERAL EXAM: Alert, very pleasant, 66-year-old white male, satting 95% on room air HEAD: Normocephalic/atraumatic. EYES: Normal reaction of pupils, equal size. Conjunctiva pink, sclera white. NOSE: Clear with pink turbinates. THROAT: No erythema or exudates. NECK: No masses, no JVD, no thyroid enlargement, no adenopathy. CHEST: No chest wall deformity. Symmetrical expansion. LUNGS: Equal air entry with no crackles, wheeze, rhonchi or dullness. CVS: Regular rate and rhythm, normal S1 and S2, no gallops, no murmurs, no rubs ABDOMEN: Soft, nontender. No hepatosplenomegaly, normal bowel sounds, no guarding or rigidity. EXTREMITIES: No clubbing, no edema, no cyanosis, 2+ pulses and upper and lower extremities. Right groin is slightly tender, and ecchymotic, but soft, right lower extremity has good cap refill and palpable pulse and warm to touch MUSCULOSKELETAL: Muscle strength and tone normal. SPINE: No scoliosis or deformity SKIN: No rashes CENTRAL NERVOUS SYSTEM: Alert and oriented -3. No focal deficits, tone is normal in all 4 extremities. PSYCHIATRIC: Alert and oriented -3. Appropriate affect. Intact judgment and insight. - Labs CBC & Chem 7: 11/17/21 09:49 11/17/21 09:49 Assessment and Plan Plan: Assessment: #1. Acute hypoxic respiratory failure, likely related to postoperative atelectasis, patient's COPD is stable, chest x-ray showing hypoventilatory changes, interstitial prominence, low lung volumes #2. Mild COPD with baseline FEV1 at 85% of predicted, stable at this time #3. 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 Peripheral arterial disease with previous intervention #5. History of hypertension #6. Hyperlipidemia #7. Coronary artery disease #8. History of DVT on several toe #9. History of COVID-19 pneumonia in March 2021, recovered #10. Former smoker, in remission Plan: Patient has remained stable, no worsening dyspnea or cough, no wheezing or coughing Today's home oxygen assessment shows improvement in oxygenation, and patient is maintaining stable O2 saturations at 95% with ambulation Home oxygen can be canceled He is stable for discharge home from pulmonary perspective Outpatient follow-up with Dr. Pierce in the office in the 7-10 days he can continue on Symbicort, and Ventolin HFA Anticoagulation per vascular surgery I have personally seen and examined the patient, performed the documentation and the assessment and plan as written. Number of minutes spent on the visit: [15] Time with Patient: Less than 30
--- NOTE | 2021-11-18 15:08 | P.PN ---
Subjective Progress Note Date: 11/18/21 NPO, scheduled for a right femoral thrombectomy with possibly patch angioplasty today with vascular surgery. PTT 45.6. Complains of right ankle and hip pain with exertion. Denies chest pain, palpitations or shortness of breath. Afebrile. 11/17/2021 POD #1 ,right common femoral thromboendarterectomy with patch angioplasty and right iliac thrombectomy . Postop required increased FiO2, currently on 15 L Ventimask maintaining O2 sats in the high 90s. Hemoglobin 13.Reporting discomfort right groin, reporting "stinging" sensation. Right foot warm with doppler pulses. Afebrile, normal WBC. Objective - Vital Signs Vital signs: Vital Signs Temp 97.9 F 11/17/21 17:36 Pulse 86 11/17/21 17:36 Resp 20 11/17/21 17:36 BP 146/68 11/17/21 17:36 Pulse Ox 96 11/17/21 17:36 FiO2 35 11/17/21 16:28 Intake & Output 11/16/21 11/17/21 11/17/21 18:59 06:59 18:59 Intake Total 1962 1040 2300 Output Total 984 911 1330 Balance 1187 340 750 Weight 95.5 kg 95.5 kg Intake: IV 1712 920 620 Invasive Line 2 10 20 20 Sodium Chloride 0.9% 1, 600 900 600 000 ml @ 75 mls/hr IV . [id number] [facility] Rx#:[id number] Intake, IV Titration 250 Amount Heparin Sod,Pork in 0.45% 250 NaCl 25,000 unit In 0.45 % NaCl 1 250ml.bag @ 18 UNITS/KG/HR 17.118 mls/hr IV .[id number] [facility] Rx#: [id number] Oral 0 120 1680 Output: Urine 906 818 6186 Uretheral (Corral) 700 1550 Estimated Blood Loss 75 Other: Voiding Method Urinal Indwelling Catheter - Exam PHYSICAL EXAM: VITAL SIGNS: As above GENERAL: Sitting up in bed, respiratory effort increased, no acute distress HEENT: Conjunctivae normal. eyes normal. NECK: Supple, No JVD. CARDIOVASCULAR: S1, S2 regular. No murmur RESPIRATION: Equal air entry, bilateral bases diminished. No rhonchi, crackles or wheezing ABDOMEN: Soft, nontender . No guarding. no masses palpable. No hepatosplenomegaly.Bowel sounds heard. LEGS: No palpable Right PT or DP pulses, no edema. Doppler pulses. Extremity warm. PSYCHIATRY: Alert and oriented X3, mood and affect normal. NERVOUS SYSTEM: Cranial N 2-12 grossly normal. No focal deficits. Skin: Warm and dry, no rash - Labs CBC & Chem 7: 11/17/21 09:49 11/17/21 09:49 Labs: Abnormal Lab Results - Last 24 Hours (Table) 11/17/21 11/17/21 Range/Units 09:49 09:49 RBC 3.89 L (4.30-5.90) m/uL MCV 102.8 H (80.0-100.0) fL Sodium 133 L (137-145) mmol/L Glucose 114 H (74-99) mg/dL Assessment and Plan Assessment: Severe peripheral arterial disease with Right femoral artery occlusion, status post right common femoral thromboendarterectomy with patch angioplasty and right iliac thrombectomy on 11/16/2021 Atelectasis, postop, expected outcome Hypertension Hyperlipidemia Osteoarthritis CAD COPD, stable History of DVT, Xarelto on hold Plan: Continue on current medication regime ,monitoring and symptomatic treatment. Chest x-ray. Pain management. Aggressive pulmonary toileting with nebulized bronchodilators, incentive spirometer reinforced. The impression and plan of care has been dictated as directed. : I performed a history and examination of this patient, discussed the same with the dictator. I agree with the dictator's note ,documented as a scribe. Any additional findings or plans will be noted.
--- NOTE | 2021-11-18 15:24 | P.PN ---
Subjective Progress Note Date: 11/18/21 NPO, scheduled for a right femoral thrombectomy with possibly patch angioplasty today with vascular surgery. PTT 45.6. Complains of right ankle and hip pain with exertion. Denies chest pain, palpitations or shortness of breath. Afebrile. 11/17/2021 POD #1 ,right common femoral thromboendarterectomy with patch angioplasty and right iliac thrombectomy . Postop required increased FiO2, currently on 15 L Ventimask maintaining O2 sats in the high 90s. Hemoglobin 13.Reporting discomfort right groin, reporting "stinging" sensation. Right foot warm with doppler pulses. Afebrile, normal WBC. 11/18/2021 significant clinical improvement. Maintaining O2 sats in the 90s on room air. Chest x-ray reported atelectasis. Minimal discomfort of right groin. Right extremity warm, positive Doppler pulses. Required Corral catheter placement for urinary retention. Denies chest pain, palpitations or shortness of breath. Objective - Vital Signs Vital signs: Vital Signs Temp 97.7 F 11/18/21 12:30 Pulse 81 11/18/21 12:30 Resp 18 11/18/21 12:30 BP 131/66 11/18/21 12:30 Pulse Ox 91 L 11/18/21 12:30 FiO2 35 11/17/21 16:28 Intake & Output 11/17/21 11/18/21 11/18/21 18:59 06:59 18:59 Intake Total 2300 240 590 Output Total 1550 2100 381 Balance 750 -1860 209 Weight 95.5 kg 95.5 kg Intake: IV 620 310 Invasive Line 2 20 10 Sodium Chloride 0.9% 1, 600 300 000 ml @ 75 mls/hr IV . [id number] [facility] Rx#:[id number] Oral 1680 240 280 Output: Urine 1550 2100 380 Uretheral (Corral) 1550 300 Stool 1 Other: Voiding Method Indwelling Catheter Indwelling Catheter # Voids 0 - Exam PHYSICAL EXAM: VITAL SIGNS: As above GENERAL: Alert and oriented 3, Sitting up in bed, no acute distress HEENT: Conjunctivae normal. eyes normal. NECK: Supple, No JVD. CARDIOVASCULAR: S1, S2 regular. No murmur RESPIRATION: Equal air entry, bilateral bases diminished. ABDOMEN: Soft, nontender . No guarding. no masses palpable. Bowel sounds heard. LEGS: Right foot Doppler pulses, no edema. Extremity warm. NERVOUS SYSTEM: Cranial N 2-12 grossly normal. No focal deficits. Skin: Warm and dry, no rash - Labs CBC & Chem 7: 11/17/21 09:49 11/17/21 09:49 Assessment and Plan Assessment: Severe peripheral arterial disease with Right femoral artery occlusion, status post right common femoral thromboendarterectomy with patch angioplasty and right iliac thrombectomy on 11/16/2021 Atelectasis, postop, expected outcome Urinary retention, postop, expected outcome secondary to anesth. Hypertension Hyperlipidemia Osteoarthritis CAD COPD, stable History of DVT, Xarelto on hold Plan: Continue on current medication regime ,monitoring and symptomatic treatment. Discharge planning progress for today. Staff advised to DC Corral catheter, Flomax initiated. Bladder scan post void. May possibly require Corral reinsertion and subsequent follow-up with urology within 1 week. Maintain aggressive pulmonary toileting with incentive spirometer reinforced. Follow-up with PCP in one week. The impression and plan of care has been dictated as directed. : I performed a history and examination of this patient, discussed the same with the dictator. I agree with the dictator's note ,documented as a scribe. Any additional findings or plans will be noted.
[2021-11-18 16:16] VITALS: PULSE 85
== END 2021-11-18 17:27 | disposition home or self-care (01) ==
LOC: CATHCVL 07:10 → 3SCARD 14:19 → CATHCVL 11-18 17:27
PROVIDERS: ATTEND Surgery
DX: I70.221 Atherosclerosis of native arteries of extremities with rest pain, right leg (principal); I25.10 Atherosclerotic heart disease of native coronary artery without angina pectoris; J44.9 Chronic obstructive pulmonary disease, unspecified; Z86.73 Personal history of transient ischemic attack (TIA), and cerebral infarction without residual deficits; Z86.718 Personal history of other venous thrombosis and embolism; E78.5 Hyperlipidemia, unspecified; I10 Essential (primary) hypertension; I25.2 Old myocardial infarction; M19.90 Unspecified osteoarthritis, unspecified site; Z86.16 Personal history of COVID-19; Z87.442 Personal history of urinary calculi; Z95.5 Presence of coronary angioplasty implant and graft; Z95.820 Peripheral vascular angioplasty status with implants and grafts; Z96.641 Presence of right artificial hip joint; Z87.891 Personal history of nicotine dependence; Z80.1 Family history of malignant neoplasm of trachea, bronchus and lung; Z79.01 Long term (current) use of anticoagulants; Z79.899 Other long term (current) drug therapy; Z79.02 Long term (current) use of antithrombotics/antiplatelets; Z79.51 Long term (current) use of inhaled steroids; Z91.030 Bee allergy status
CPT/HCPCS: 94640 ×5; 94760; 97162; 36245; 75625; 75710; 76937; 88304; 80048; 85025 ×2; 85610; 85730 ×2; 88311; 34201; 35302; C1769 ×5; C1894; J2250; J2270 ×6; J1100; J2405; J0690; J2001; J3010; J1644 ×4; C9113 ×2; Q9966

== ENCOUNTER → 2022-08-28 | Outpatient (CLI) | payer MEDICARE, OTHER ==
--- NOTE | 2022-08-28 18:53 | MR ---
EXAMINATION TYPE: MR lumbar spine wo con DATE OF EXAM: 08/28/2022 COMPARISON: None HISTORY: Low back pain that radiates down left leg, sometimes right Multiplanar multiecho imaging of the lumbar spine performed without contrast. The lumbar vertebrae have normal alignment. There is mild disc space narrowing in the lumbar spine. T here is 15% mild wedging of the L2 vertebral body that appears old. No acute fractures seen. There is minimal edema in the anterior superior aspect of the L3 vertebral body. There is multilevel lumbar f acet arthropathy. There is bilateral L4-5 neural foraminal narrowing due to facet arthropathy and dis c space narrowing. The sacrum is intact. There is mild multilevel posterior disc bulging from L2 to S 1. IMPRESSION: Multilevel spondylotic changes. Mild neural foraminal narrowing due to facet arthropathy and disc spa ce narrowing at L4-5. Old mild compression fracture of L2. Mild edema in the anterior L3 vertebra and also posterior aspect L5 vertebral body consistent with some reactive stress related changes. No sig nificant lumbar spinal stenosis.
--- NOTE | 2022-08-28 19:27 | MR ---
EXAMINATION TYPE: MR knee LT wo con DATE OF EXAM: 08/28/2022 COMPARISON: None HISTORY: Left knee pain. Multiplanar multiecho imaging of the left knee performed without contrast. The anterior and posterior cruciate ligaments appear intact. There is mild knee joint effusion. There is extensive abnormal mixed signal in the proximal tibia. There is horizontal irregular area of decreased signal on the T1 images consistent with transverse fracture through the proximal tibial me taphysis. Fracture line extends up to the tibial spines. There is decreased signal on T1 images in th e proximal fibula and the tibial condyles consistent with bone infarct. There is 2 x 1.5 cm area of i rregular mixed signal in the lateral femoral condyle. There is elongated area of mixed signal measuri ng 3 x 1 cm in the medial femoral condyle also consistent with bone infarcts. Abnormal signal measure s 6.5 cm in length involving the proximal tibial metaphysis and epiphysis related to old bone infarct . There is a slight depression of the lateral tibial plateau 3 mm related to plateau fracture. There is very minimal depression of the medial tibial plateau 1 to 2 mm. The collateral ligaments appear intact. There is subcutaneous edema around the knee. There is horizontal and vertical tear through the posterior horn medial meniscus extending to the inf erior surface. There is some thinning of the menisci. The lateral meniscus appears intact. 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 Tibial fracture extends into the metaphysis and epiphysis. 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 There is transverse and vertical fractures of the proximal tibial metaphysis with slight depression o f the medial and lateral tibial plateaus. Large tear of the posterior horn medial meniscus. Knee joint effusion. No evidence of definite ligame ntous tear.
== END | disposition home or self-care (01) ==
LOC: RADMRIMAIN 14:30
PROVIDERS: ATTEND Orthopaedic Surgery
DX: S82.102A Unspecified fracture of upper end of left tibia, initial encounter for closed fracture (principal); M48.56XA Collapsed vertebra, not elsewhere classified, lumbar region, initial encounter for fracture; M51.36 Other intervertebral disc degeneration, lumbar region; M23.222 Derangement of posterior horn of medial meniscus due to old tear or injury, left knee; M25.462 Effusion, left knee; M89.9 Disorder of bone, unspecified; M99.73 Connective tissue and disc stenosis of intervertebral foramina of lumbar region
CPT/HCPCS: 72148

== ENCOUNTER → 2022-09-22 | Outpatient (CLI) | payer MEDICARE, OTHER ==
[2022-09-22 14:47] LABS: African American GFR (CKD) >90 (>60 ml/min/1.73 sqM); Blood Urea Nitrogen 15 mg/dL (9-20); Non-African American GFR(CKD) 85 (>60 ml/min/1.73 sqM)
--- NOTE | 2022-09-22 15:52 | CT ---
EXAMINATION TYPE: CT angio abdomen pelvis CT DLP: 2013 mGycm, Automated exposure control for dose reduction was used. DATE OF EXAM: 09/22/2022 3:38 PM COMPARISON: CT abdomen pelvis 08/14/2020 CLINICAL INDICATION:Male, 67 years old with history of I73.9; TECHNIQUE: Multiple thin slice sub-millimeter images were obtained through the abdomen and pelvis aft er administration of contrast. Patient was given Isovue 370, 100 cc intravenously. 3-D reconstructe d images and maximum intensity projection images were obtained of the abdomen and pelvis. FINDINGS: CTA Abdomen and pelvis: Stable fusiform ectasia of the distal abdominal aorta measuring up to 2.8 cm. Moderate after sclerotic plaquing is identified within the abdominal aorta. The origins of the sup erior mesenteric artery, renal arteries, inferior mesenteric artery, and celiac axis are patent. Kamila ac axis and SMA demonstrate mild atherosclerotic calcifications. Moderate atherosclerotic calcificati ons plaque involving the bilateral renal arteries. Patent FANY with moderate narrowing at its origin r edemonstrated. Diminutive and calcified external iliac arteries in both sides with segmental areas of moderate to severe stenosis redemonstrated. Redemonstration of occluded left superficial femoral art kristen stent. Patent bypass graft. VISCERA: The liver, spleen, adrenal glands, kidneys, pancreas, and gallbladder are not optimally enha nced due the arterial phase utilized. LIVER: Unremarkable GALLBLADDER AND BILE DUCTS: Cholelithiasis. No biliary ductal dilatation. PANCREAS: Fatty infiltration. SPLEEN: Unremarkable. ADRENAL GLANDS: Unremarkable. KIDNEYS AND URETERS: No evidence of hydronephrosis. Bilateral renal vascular calcifications. Stable s ubsegmental cortical hypodensity within the lower pole the right kidney likely representing a cyst. PELVIS BLADDER: Unremarkable REPRODUCTIVE: Unremarkable. ABDOMEN & PELVIS STOMACH AND BOWEL: Stomach and duodenum are unremarkable no focal wall thickening or surrounding infl ammatory changes. The appendix is within normal limits. Sigmoid diverticulosis without evidence for a cute diverticulitis. No evidence of bowel obstruction. PERITONEUM: No evidence of pneumoperitoneum or free fluid. MUSCULOSKELETAL: No acute osseous abnormalities. Right hip total arthroplasty changes. Moderate osteo arthritic changes of the left hip. Mild multilevel degenerative changes of the visualized spine. LYMPH NODES: No gross evidence for lymphadenopathy. SOFT TISSUE/ABDOMINAL WALL: Small fat filled umbilical hernia. Postsurgical changes within both ingui nal regions. LOWER CHEST: Patchy groundglass opacities within the right middle and lower lobes. Coronary calcifica tions. IMPRESSION 1. Overall similar examination with moderate atherosclerotic changes throughout the abdominal aorta with stable fusiform ectasia of the distal abdominal aorta measuring up to 2.8 cm. 2. Similar moderate to severe disc height narrowing throughout the bilateral external iliac arteries and redemonstration of occluded left superficial femoral artery stent with patent bypass graft. 3. Cholelithiasis. 4. Colonic diverticulosis without evidence for acute diverticulitis.
== END | disposition home or self-care (01) ==
LOC: RADCTMAIN 14:00
PROVIDERS: ATTEND Surgery
DX: I70.213 Atherosclerosis of native arteries of extremities with intermittent claudication, bilateral legs (principal); I70.0 Atherosclerosis of aorta; K80.20 Calculus of gallbladder without cholecystitis without obstruction; K57.30 Diverticulosis of large intestine without perforation or abscess without bleeding
CPT/HCPCS: 82565; 84520; 36415; 74174; Q9967

== ENCOUNTER 2022-10-18 11:41 | Day surgery (SDC) | payer MEDICARE, OTHER ==
[~2022-10-18 11:41] MED LIST changes: +ALPRAZolam 0.25 MG TAB PO PRN; +ALPRAZolam 0.5 MG TAB PO PRN; +HEPARIN SODIUM,PORCINE 10,000 UNIT in SODIUM CHLORIDE 0.9% 1,000 ML IRRIGATION PRN; +HEPARIN SODIUM,PORCINE 2,500 UNIT in SODIUM CHLORIDE 0.9% 250 ML IRRIGATION PRN; +ZOLPIDEM 5 MG TAB PO PRN
[2022-10-18 12:36] LABS: Basophils % (A) 0 %; Eosinophils # (A) 0.2 k/uL (0-0.7); Eosinophils % (A) 2 %; HCT 46.6 % (39.0-53.0); HGB 15.1 gm/dL (13.0-17.5); Lymphocytes # (A) 1.1 k/uL (1.0-4.8); Lymphocytes % (A) 11 %; MCHC 32.3 g/dL (31.0-37.0); MCV 99.1 fL (80.0-100.0); Mean Platelet Volume 7.2; Monocytes # (A) 0.5 k/uL (0-1.0); Monocytes % (A) 5 %; Neutrophils # (A) 8.5 k/uL (1.3-7.7); Neutrophils % (A) 80 %; Platelet Count 200 k/uL (150-450); RDW 14.2 % (11.5-15.5); WBC 10.6 k/uL (3.8-10.6)
[2022-10-18 12:52] LABS: African American GFR (CKD) >90 (>60 ml/min/1.73 sqM); Anion Gap 11 mmol/L; Blood Urea Nitrogen 18 mg/dL (9-20); Calcium 9.9 mg/dL (8.4-10.2); Carbon Dioxide 26 mmol/L (22-30); Chloride 98 mmol/L (98-107); Glucose 116 mg/dL (74-99); Non-African American GFR(CKD) >90 (>60 ml/min/1.73 sqM); Potassium 4.6 mmol/L (3.5-5.1); Sodium 135 mmol/L (137-145)
[2022-10-18] MEDS ORDERED: fentaNYL (PF) 50 MCG/ML 2 ML AMP ONE (14:10)
[2022-10-18] MEDS ORDERED: LIDOCAINE 1% INJ 10MG/ML (30 ML VIAL-PF) SQ ONE (14:32)
[2022-10-18] MEDS ORDERED: MIDAZOLAM 2 MG/2 ML VIAL IV ONE (14:36)
[2022-10-18] MEDS ORDERED: fentaNYL (PF) 50 MCG/1 ML VIAL IV ONE (14:37)
[2022-10-18] MEDS ORDERED: HEPARIN SODIUM 1,000 UN/ML (10ML VL) IV ONE (15:11)
[2022-10-18] MEDS ORDERED: IOPAMIDOL-370 100ML BTL INJ ONE (15:32)
[2022-10-18] MEDS ORDERED: IOPAMIDOL-300 100ML BTL INJ ONE (15:32)
--- NOTE | 2022-10-18 15:53 | P.OP ---
Date of Procedure: 10/18/22 Description of Procedure: Preoperative diagnosis: Claudication, left iliac artery stenosis Postop diagnosis: Same, left iliac artery stenosis Procedure: - Aortogram with bilateral lower extremity runoffs via right femoral access under ultrasound guidance - Intravascular ultrasound of the left common iliac, external iliac, common femoral and femoral popliteal bypass - Percutaneous transluminal balloon angioplasty of the left common iliac, external iliac and anastomosis of the bypass Surgeon: Jose Anesthesia: Moderate sedation times 71 minutes Estimated blood loss: 10 mL Complications: none Condition: stable Findings: Aorta: Patent without any significant atherosclerotic disease. There is aneurysmal disease at the bifurcation and just proximal Iliacs: Right common iliac artery with some slight dilation. No significant atherosclerotic disease noted with no significant stenosis. External iliac and internal iliac arteries are patent with mild atherosclerotic disease throughout area and no stenosis. Left common iliac, external iliac artery after stenotic disease noted with mild areas of stenosis. The left internal iliac artery has severe stenosis with occlusion noted just past the bifurcation. Femorals: Right common femoral artery is patent without any significant stenosis. Left common femoral artery has mild stenotic area noted just at the takeoff of the bypass. Bilateral deep femoral arteries are widely patent without any significant evidence carotid disease or stenosis. Right superficial femoral artery is patent with atherosclerotic disease throughout with mild areas of stenosis. Left SFA is occluded but bypass graft is widely patent down to below the knee. No evidence of stenosis at the outflow. Inflow is questionable for stenosis. Popliteal: Right popliteal artery is patent with mild atherosclerotic disease and stenosis. Left popliteal artery is occluded. Tibials: Left tibioperoneal trunk is patent at the bypass. One-vessel runoff to the ankle posterior tibial artery. Right tibioperoneal trunk is patent with at the carotid disease throughout. Poor filling distally but appears to have two- vessel runoff to the ankle. Operative narrative: After written informed consent was obtained the patient all risks benefits competitions were described the patient is brought to the [employer] and laid in a supine position. The area of the right groin was prepped and draped in the usual sterile fashion. Local anesthesia with moderate sedation was performed with continuous pulse ox monitoring and EKG monitoring. Utilizing ultrasound the right femoral artery was visualized and shown to be patent without any significant plaque. Utilizing a multipurpose needle under ultrasound guidance the artery was accessed. Guidewire was placed followed by 5-Finnish sheath. 035 Glidewire was then placed into the aorta followed by pigtail catheter. Angiogram was then obtained of the aorta. Catheter was then placed at the bifurcation and lower extremity runoffs were obtained. Due to previous computed tomography scan demonstrating stenosis of the iliac artery on the left and Up & Over catheter was placed followed by an 014 wire. Intravascular ultrasound was then placed and imaging of the common iliac, external iliac, femoral and anastomosis for the bypass were imaged demonstrating some mild areas of stenosis throughout but no significant blockage. Due to this the 014 wire was exchanged for an 018 wire and balloon angioplasty was performed with a 6 x 150 mm balloon for the common and external iliac arteries. A 5 x 40 mm balloon was utilized for the anastomosis. Final angiogram was obtained demonstrating improvement of the areas of stenosis with brisk flow to the bypass. Once completed all guidewires, catheters and sheaths were removed and pressure was placed for hemostasis. Patient tolerated procedure well was sent to PACU for recovery Plan - Discharge Summary Discharge Rx Participant: No New Discharge Prescriptions: No Action HYDROcodone/APAP 10-325MG [Perry 10-325] 1 tab PO QID PRN PRN Reason: Pain Gabapentin [Neurontin] 600 mg PO BID EPINEPHrine (Auto Inject) [Epipen] 0.3 mg IM ONCE PRN PRN Reason: Anaphylaxis Rivaroxaban [Xarelto] 2.5 mg PO BID Nitroglycerin Sl Tabs [Nitrostat] 0.4 mg SUBLINGUAL Q5M PRN #60 tab PRN Reason: Chest Pain Metoprolol Tartrate [Lopressor] 25 mg PO BID Ezetimibe [Zetia] 10 mg PO DAILY Biotin 5 mg PO HS Thiamine [Vitamin B-1] 100 mg PO DAILY #30 tab Baclofen [Lioresal] 20 mg PO BID Clopidogrel [Plavix] 75 mg PO HS Sennosides-Docusate Sodium [Senokot-S] 2 each PO BID tab amLODIPine [Norvasc] 5 mg PO HS #0 Budesonide/Formoterol Fumarate [Symbicort 160-4.5 Mcg Inhaler] 2 puff INHALATION RT-BID Albuterol Sulfate [Ventolin HFA] 2 puff INHALATION RT-BID PRN PRN Reason: sob Rosuvastatin Calcium [Crestor] 40 mg PO HS Aspirin [Adult Low Dose Aspirin EC] 81 mg PO DAILY Discharge Medication List Gabapentin [Neurontin] 600 mg PO BID 04/21/15 [History] HYDROcodone/APAP 10-325MG [Perry 10-325] 1 tab PO QID PRN 04/21/15 [History] EPINEPHrine (Auto Inject) [Epipen] 0.3 mg IM ONCE PRN 05/25/19 [History] Rivaroxaban [Xarelto] 2.5 mg PO BID 04/21/20 [History] Nitroglycerin Sl Tabs [Nitrostat] 0.4 mg SUBLINGUAL Q5M PRN #60 tab 04/22/20 [Rx] Biotin 5 mg PO HS 09/01/20 [History] Ezetimibe [Zetia] 10 mg PO DAILY 09/01/20 [History] Metoprolol Tartrate [Lopressor] 25 mg PO BID 09/01/20 [History] Albuterol Sulfate [Ventolin HFA] 2 puff INHALATION RT-BID PRN 02/03/21 [History] Budesonide/Formoterol Fumarate [Symbicort 160-4.5 Mcg Inhaler] 2 puff INHALATION RT-BID 02/03/21 [History] Thiamine [Vitamin B-1] 100 mg PO DAILY #30 tab 02/05/21 [Rx] Baclofen [Lioresal] 20 mg PO BID 10/20/21 [History] Clopidogrel [Plavix] 75 mg PO HS 10/20/21 [History] Rosuvastatin Calcium [Crestor] 40 mg PO HS 10/20/21 [History] Sennosides-Docusate Sodium [Senokot-S] 2 each PO BID tab 11/18/21 [Rx] amLODIPine [Norvasc] 5 mg PO HS #0 11/18/21 [Rx] Aspirin [Adult Low Dose Aspirin EC] 81 mg PO DAILY 10/14/22 [History] Follow up Appointment(s)/Referral(s): Allen Paredes DO [Doctor of Osteopathic Medicine] - 2 Weeks (APPOINTMENT MADE ON October @ 10:45AM ) Patient Instructions/Handouts: Peripheral Vascular Disease (ED), Peripheral Artery Disease (ED), Moderate Sedation (ED) Activity/Diet/Wound Care/Special Instructions: *NO LIFTING, PUSHING, OR PULLING ANYTHING OVER 5 POUNDS FOR 5 DAYS *NO DRIVING FOR 3 DAYS *YOU CAN REMOVE YOUR DRESSING AND SHOWER TOMORROW BUT DO NOT SUBMERSE YOUR PUNCTURE SITE IN WATER FOR A FEW DAYS TO PREVENT INFECTION - SO NO TUB BATHS, POOLS, HOT TUBS, DISHES...ETC *ANY SIGNS OF BLEEDING (HARDNESS, SWELLING, OR EXCESSIVE BRUISING) HOLD DIRECT PRESSURE ON YOUR PUNCTURE SITE AND COME TO THE NEAREST EMERGENCY ROOM TO GET YOUR PUNCTURE SITE LOOKED AT - DO NOT DRIVE YOURSELF! EITHER CALL EMS OR HAVE SOMEONE DRIVE YOU! Discharge Disposition: HOME SELF-CARE
[2022-10-18] MEDS ORDERED: HYDROcodone/APAP 10-325MG 1 EACH TAB ONE (16:31)
[2022-10-18 17:48] VITALS: RESP 16
[2022-10-18 20:35] VITALS: BP 122/77; PULSE 61; TEMP 98.1
--- NOTE | 2022-10-19 09:45 | IR ---
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 Fluoroscopy was provided to the referring clinician.
== END 2022-10-18 23:20 | disposition home or self-care (01) ==
LOC: CATHCVL 11:41 → 3SCARD 15:38 → CATHCVL 23:20
PROVIDERS: ATTEND Surgery
DX: I70.213 Atherosclerosis of native arteries of extremities with intermittent claudication, bilateral legs (principal); I71.9 Aortic aneurysm of unspecified site, without rupture; I25.10 Atherosclerotic heart disease of native coronary artery without angina pectoris; E78.5 Hyperlipidemia, unspecified; I10 Essential (primary) hypertension; G62.9 Polyneuropathy, unspecified; I65.29 Occlusion and stenosis of unspecified carotid artery; Z79.01 Long term (current) use of anticoagulants; Z79.82 Long term (current) use of aspirin; Z87.891 Personal history of nicotine dependence
CPT/HCPCS: 37220; 37252; 37253; 75625; 75716; 80048; 85025; 99152; 99153 ×3; C1769 ×5; C1894; C1725 ×2; C1753; J2250; J2001; J1644; Q9967 ×2; J3010

== ENCOUNTER → 2022-11-17 | Outpatient (CLI) | payer MEDICARE, OTHER ==
[2022-11-17 13:50] LABS: African American GFR (CKD) >90 (>60 ml/min/1.73 sqM); Blood Urea Nitrogen 22 mg/dL (9-20); Non-African American GFR(CKD) >90 (>60 ml/min/1.73 sqM)
--- NOTE | 2022-11-17 14:23 | CT ---
EXAMINATION TYPE: CT angio chest DATE OF EXAM: 11/17/2022 COMPARISON: None HISTORY: Shortness of breath. CT DLP: 484.4 mGycm CONTRAST: CT chest with contrast and 3D reconstruction with MIP imaging is performed with IV Contrast, patient injected with 68ml mL of Isovue 370. Contrast-enhanced CT of the chest was performed through the course of the pulmonary arteries with radha g and mediastinal window settings submitted. 3D reconstruction with MIP imaging was also performed. PULMONARY ARTERIES: The pulmonary arteries and their major tributaries are patent. I do not see lala dence for sizable filling defect to suggest pulmonary embolic process. LUNGS: The lungs are clear and free of infiltrate. No evidence for atelectasis. Nodular infiltrate ri ght middle lobe areas of nodularity measuring 9 mm, and 8.7 mm. Left lower lobe subpleural nodule. Emergency room measuring 1.3 cm. Consider evaluation with PET/CT. No pleural effusion. MEDIASTINUM: Thoracic aorta is of normal caliber,however, evaluation is limited given timing of the contrast bolus. If there is concern for thoracic aortic pathology consider [place]. Correlate clinicall y . The heart is not enlarged. No evidence for mediastinal mass. No mediastinal lymph nodes greater than 1cm. HILAR STRUCTURES: No evidence for mass. No hilar lymph nodes greater than 1 cm. UPPER ABDOMEN: Cholelithiasis. IMPRESSION: 1. No evidence for Pulmonary embolism at this time. Pulmonary nodularity is nonspecific. Consider PET/CT for further evaluation especially for superior s egment left lower lobe nodule.
== END | disposition home or self-care (01) ==
LOC: RADCTMAIN 12:37
PROVIDERS: ATTEND Family Medicine
DX: I27.24 Chronic thromboembolic pulmonary hypertension (principal); R91.8 Other nonspecific abnormal finding of lung field; R07.9 Chest pain, unspecified; R06.2 Wheezing
CPT/HCPCS: 82565; 84520; 71275; 36415; Q9967

== ENCOUNTER 2022-12-17 21:00 | Inpatient (IN) | payer MEDICARE, OTHER ==
[2022-12-17] MEDS ORDERED: SODIUM CHLORIDE 0.9% 1,000 ML IV ONE (21:54)
[2022-12-17 22:09] LABS: Basophils % (A) 0 %; Eosinophils # (A) 0.1 k/uL (0-0.7); Eosinophils % (A) 1 %; HCT 45.5 % (39.0-53.0); HGB 15.4 gm/dL (13.0-17.5); Lymphocytes # (A) 1.2 k/uL (1.0-4.8); Lymphocytes % (A) 16 %; MCH 32.9 pg (25.0-35.0); MCHC 33.8 g/dL (31.0-37.0); MCV 97.3 fL (80.0-100.0); Mean Platelet Volume 7.6; Monocytes # (A) 0.3 k/uL (0-1.0); Monocytes % (A) 4 %; Neutrophils # (A) 5.9 k/uL (1.3-7.7); Neutrophils % (A) 78 %; Platelet Count 135 k/uL (150-450); RBC 4.67 m/uL (4.30-5.90); RDW 13.3 % (11.5-15.5); WBC 7.6 k/uL (3.8-10.6)
[2022-12-17 22:19] LABS: ALT 121 U/L (4-49); AST 105 U/L (17-59); African American GFR (CKD) 80 (>60 ml/min/1.73 sqM); Albumin 3.8 g/dL (3.5-5.0); Alkaline Phosphatase 193 U/L (38-126); Anion Gap 7 mmol/L; Blood Urea Nitrogen 31 mg/dL (9-20); Carbon Dioxide 26 mmol/L (22-30); Chloride 104 mmol/L (98-107); Glucose 116 mg/dL (74-99); Lipase 42 U/L (23-300); Non-African American GFR(CKD) 69 (>60 ml/min/1.73 sqM); Potassium 4.1 mmol/L (3.5-5.1); Sodium 137 mmol/L (137-145); Total Bilirubin 0.5 mg/dL (0.2-1.3)
[2022-12-17 22:22] LABS: INR 1.1 (<1.2); Prothrombin Time 11.3 sec (9.0-12.0)
--- NOTE | 2022-12-18 00:21 | US ---
EXAM: US Abdomen Limited, Gallbladder CLINICAL HISTORY: US Reason: gallstones TECHNIQUE: Real-time ultrasound of the right upper quadrant with image documentation. COMPARISON: No relevant prior studies available. FINDINGS: Liver: The liver is enlarged measuring 18.5 cm. No focal liver lesion is seen. Gallbladder: The gallbladder is normally distended. No gallstones are identified. The wall thickness is upper limits of normal measuring 3 mm. No pericholecystic fluid is seen. Sonographic Louie sign is negative. Common bile duct: The common bile duct is nondilated measuring 4-5 mm. Pancreas: The pancreas is obscured. Right kidney: The right kidney measures 11 cm with normal appearance. No hydronephrosis. Other findings: Large body habitus. IMPRESSION: The gallbladder is normally distended. No gallstones are identified. The wall thickness is upper limits of normal measuring 3 mm. No pericholecystic fluid is seen. Sonographic Louie sign is negative.
--- NOTE | 2022-12-18 00:23 | XR ---
EXAM: XR Chest, 2 Views CLINICAL HISTORY: XR Reason: abdominal pain TECHNIQUE: Frontal and lateral views of the chest. COMPARISON: CT scan from November 17, 2022 FINDINGS: Lungs: Reticular increased densities throughout the mid to lower lungs bilaterally. Consider interstitial pneumonitis and/or subsegmental atelectasis. Pleural space: Unremarkable. No pneumothorax. Heart: Unremarkable. No cardiomegaly. Mediastinum: Unremarkable. Bones/joints: Unremarkable. Vasculature: The aortic arch is mildly calcified but nondilated. Upper abdomen: There is no pneumoperitoneum under the diaphragm. IMPRESSION: Reticular increased densities throughout the mid to lower lungs bilaterally. Consider interstitial pneumonitis and/or subsegmental atelectasis.
--- NOTE | 2022-12-18 00:27 | ED ---
Abdominal Pain HPI - General Chief Complaint: Abdominal Pain Stated Complaint: Gallbladder pain Time Seen by Provider: 12/17/22 21:10 Source: patient Mode of arrival: EMS - History of Present Illness Initial Comments: 67-year-old male with past medical history of peripheral arterial disease, DVT, COPD who presents to the emergency room reporting bilateral upper quadrant pain. States it's been going on for the past 6 weeks. It is squeezing sensation which wraps around both flanks. He went into his primary care office and also followed up with his heart doctor. Continue to have pain and therefore went into [facility] today. Laboratory studies were conducted and the patient had a CAT scan of his abdomen and pelvis performed. He was found to have a high calcium level however they did not transmit these labs. CT demonstrated cirrhotic morphology of the liver. Cholelithiasis. No signs of cholecystitis. Emphysematous changes of the lungs. Due to his hypercalcemia and pain they recommended transfer to our hospital. Patient arrives here and states he has not had any alcohol in 6 weeks. No nausea or vomiting. No chest pain or shortness of breath. No changes in his urinary or bowel habits. No other alleviating, precipitating or modifying factors - Related Data Home Medications Medication Instructions Recorded Confirmed Gabapentin [Neurontin] 600 mg PO BID 04/21/15 12/17/22 HYDROcodone/APAP 10-325MG [Waite 1 tab PO QID PRN 04/21/15 12/17/22 10-325] EPINEPHrine (Auto Inject) [Epipen] 0.3 mg IM ONCE PRN 05/25/19 12/17/22 Rivaroxaban [Xarelto] 2.5 mg PO BID 04/21/20 12/17/22 Biotin 5 mg PO HS 09/01/20 12/17/22 Ezetimibe [Zetia] 10 mg PO DAILY 09/01/20 12/17/22 Metoprolol Tartrate [Lopressor] 25 mg PO BID 09/01/20 12/17/22 Albuterol Sulfate [Ventolin HFA] 2 puff INHALATION RT-BID PRN 02/03/21 12/17/22 Budesonide/Formoterol Fumarate 2 puff INHALATION RT-BID 02/03/21 12/17/22 [Symbicort 160-4.5 Mcg Inhaler] Baclofen [Lioresal] 20 mg PO BID 10/20/21 12/17/22 Clopidogrel [Plavix] 75 mg PO HS 10/20/21 12/17/22 Rosuvastatin Calcium [Crestor] 40 mg PO HS 10/20/21 12/17/22 Aspirin [Adult Low Dose Aspirin EC] 81 mg PO DAILY 10/14/22 12/17/22 DULoxetine HCL [Cymbalta] 30 mg PO BID 12/17/22 12/17/22 Losartan [Cozaar] 50 mg PO DAILY 12/17/22 12/17/22 Nitroglycerin Sl Tabs [Nitrostat] 0.4 mg SL Q5M PRN 12/17/22 12/17/22 Sennosides-Docusate Sodium 2 tab PO BID 12/17/22 12/17/22 [Senokot-S] amLODIPine [Norvasc] 10 mg PO HS 12/17/22 12/17/22 predniSONE See Taper PO DAILY 12/17/22 12/17/22 Previous Rx's Medication Instructions Recorded Thiamine [Vitamin B-1] 100 mg PO DAILY #30 tab 02/05/21 Allergies Allergy/AdvReac Type Severity Reaction Status Date / Time venom-honey bee Allergy Anaphylaxis Verified 12/17/22 22:28 [bee venom (honey bee)] Review of Systems ROS Statement: Those systems with pertinent positive or pertinent negative responses have been documented in the HPI. ROS Other: All systems not noted in ROS Statement are negative. Past Medical History Past Medical History: Coronary Artery Disease (CAD), COPD, CVA/TIA, Deep Vein Thrombosis (DVT), Hyperlipidemia, Hypertension, Myocardial Infarction ([place]), Osteoarthritis (OA), Vascular Disorder Additional Past Medical History / Comment(s): dvt left leg, COVID 02/2021, TIA-no residual effects, gallstones, kidney stones Last Myocardial Infarction Date:: 04/20/20 History of Any Multi-Drug Resistant Organisms: None Reported Past Surgical History: Heart Catheterization With Stent, Hernia Repair, Joint Replacement, Orthopedic Surgery Additional Past Surgical History / Comment(s): abd. aortogram 09/04/20, L Fem- pop bypass with stent,x2 christy carotid endarterectomy, christy knee arthroscopy, rt hip replacement, one cardiac stent, surgery in October 2021 L lower extrem runoff with ballon angioplasty. Past Anesthesia/Blood Transfusion Reactions: No Reported Reaction Date of Last Stent Placement:: 08/2017 Past Psychological History: No Psychological Hx Reported Smoking Status: Former smoker Past Alcohol Use History: Daily Past Drug Use History: None Reported - Past Family History Father Family Medical History: Cancer Additional Family Medical History / Comment(s): lung Brother(s) Family Medical History: Cancer Son(s) Family Medical History: Cancer General Exam General appearance: alert, in no apparent distress Head exam: Present: atraumatic, normocephalic, normal inspection Eye exam: Present: normal appearance, PERRL, EOMI. Absent: scleral icterus, conjunctival injection, periorbital swelling ENT exam: Present: normal exam, mucous membranes moist Neck exam: Present: normal inspection. Absent: tenderness, meningismus, lymphadenopathy Respiratory exam: Present: other (Course breath sounds throughout all lung field). Absent: respiratory distress, wheezes, rales, rhonchi, stridor Cardiovascular Exam: Present: regular rate, normal rhythm, normal heart sounds. Absent: systolic murmur, diastolic murmur, rubs, gallop, clicks GI/Abdominal exam: Present: soft, tenderness (Right upper and left upper quadrants), normal bowel sounds. Absent: distended, guarding, rebound, rigid Extremities exam: Present: normal inspection, full ROM, normal capillary refill. Absent: tenderness, pedal edema, joint swelling, calf tenderness Back exam: Present: normal inspection Neurological exam: Present: alert, oriented X3, CN II-XII intact Psychiatric exam: Present: normal affect, normal mood Skin exam: Present: warm, dry, intact, normal color. 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 sent in by a medical professional or institution (, PA, GREENHOUSE ASSISTANT, urgent care, hospital, or [facility]...) When possible be specific @ -Patient sent as a transfer from [facility] Did you speak to anyone other than the patient for history (EMS, parent, family, police, friend...)? What history was obtained from this source @ -Spoke with ER physician over at [facility] for history Did you review nursing and triage notes (agree or disagree)? Why? @ -I reviewed and agree with nursing and triage notes Were old charts reviewed (outside hosp., previous admission, EMS record, old EKG, old radiological studies, urgent care reports/EKG's, m[facility] records)? Report findings @ -No old charts were reviewed Differential Diagnosis (chest pain, altered mental status, abdominal pain women, abdominal pain men, vaginal bleeding, weakness, fever, dyspnea, syncope, headache, dizziness, GI bleed, back pain, seizure, CVA, palpatations, mental health, musculoskeletal)? @ -Differential Abdominal Pain Men: Appendicitis, cholecystitis, diverticulosis, ischemic bowel, pancreatitis, hepatitis, UTI, gastroenteritis, AAA, incarcerated hernia, bowel obstruction, constipation, inflammatory bowel, hepatitis, peptic ulcer disease, splenic infarction, perforated viscus, testicular torsion, this is not meant to be an all-inclusive list EKG interpreted by me (3pts min.). @ -Yes and demonstrates sinus rhythm with a rate of 73. MD interval 157. QRS 105. QTC of 407. Right bundle-branch block. No acute ST segment elevations X-rays interpreted by me (1pt min.). @ -Yes x-ray performed of the chest which demonstrates no acute process CT interpreted by me (1pt min.). @ -Yes CT of the chest is performed which does not demonstrate PE U/S interpreted by me (1pt. min.). @ -Yes and demonstrates no gallstones What testing was considered but not performed or refused? (CT, X-rays, U/S, labs)? Why? @ -None What meds were considered but not given or refused? Why? @ -None Did you discuss the management of the patient with other professionals (professionals i.e. , PA, GREENHOUSE ASSISTANT, lab, RT, psych nurse, social science instructor, cut off operator scorer, teacher, radiation officer, manager case)? Give summary @ -Spoke with Sis from [facility] for admission Was smoking cessation discussed for >3mins.? @ -No Was critical care preformed (if so, how long)? @ -No Were there social determinants of health that impacted care today? How? (Homelessness, low income, unemployed, alcoholism, drug addiction, transportation, low edu. Level, literacy, decrease access to med. care, assisted, r ehab)? @ -Patient is a very poor historian Was there de-escalation of care discussed even if they declined (Discuss DNR or withdrawal of care, Hospice)? DNR status @ -No What co-morbidities impacted this encounter? (DM, HTN, Smoking, COPD, CAD, Cancer, CVA, ARF, Chemo, Hep., AIDS, mental health diagnosis, sleep apnea, morb id obesity)? @ -COPD Was patient admitted / discharged? Hospital course, mention meds given and route, prescriptions, significant lab abnormalities, going to OR and other pertinent info. @ -Upon arrival patient is placed in room 4. History and physical exam was performed. Laboratory studies are repeated. Patient is sent for a chest x-ray due to his hypoxia. Color ultrasound is performed as the CT is reading cholelithiasis. Patient has elevated d-dimer and therefore this is followed by CT of the chest. Upon return of the results and discussed the patient. Did recommend admission for his hypoxia and abdominal pain without a clear source. Spoke with Sis from [facility] for admission Undiagnosed new problem with uncertain prognosis? @ -Yes Drug Therapy requiring intensive monitoring for toxicity (Heparin, Nitro, Insulin, Cardizem)? @ -No Were any procedures done? @ -No Diagnosis/symptom? @ -Acute abdominal pain, acute hypoxia, COPD exacerbation, acute hypercalcemia Acute, or Chronic, or Acute on Chronic? @ -Acute Uncomplicated (without systemic symptoms) or Complicated (systemic symptoms)? @ -Complicated Side effects of treatment? @ -No Exacerbation, Progression, or Severe Exacerbation? @ -No Poses a threat to life or bodily function? How? (Chest pain, [place], [place], pneumonia, PE, COPD, DKA, ARF, appy, cholecystitis, CVA, Diverticulitis, Homicidal, Suicidal, threat to staff... and all critical care pts) @ -No - Lab Data Result diagrams: 12/17/22 21:55 12/17/22 21:55 Lab Results 12/17/22 12/17/2223 Range/Units 21:55 21:55 21:55 WBC 7.6 (3.8-10.6) k/uL RBC 4.67 (4.30-5.90) m/uL Hgb 15.4 (13.0-17.5) gm/dL Hct 45.5 (39.0-53.0) % MCV 97.3 (80.0-100.0) fL MCH 32.9 (25.0-35.0) pg MCHC 33.8 (31.0-37.0) g/dL RDW 13.3 (11.5-15.5) % Plt Count 135 L (150-450) k/uL MPV 7.6 Neutrophils % 78 % Lymphocytes % 16 % Monocytes % 4 % Eosinophils % 1 % Basophils % 0 % Neutrophils # 5.9 (1.3-7.7) k/uL Lymphocytes # 1.2 (1.0-4.8) k/uL Monocytes # 0.3 (0-1.0) k/uL Eosinophils # 0.1 (0-0.7) k/uL Basophils # 0.0 (0-0.2) k/uL PT 11.3 (9.0-12.0) sec INR 1.1 (<1.2) D-Dimer 2.56 H (<0.60) mg/L FEU Sodium 137 (137-145) mmol/L Potassium 4.1 (3.5-5.1) mmol/L Chloride 104 (98-107) mmol/L Carbon Dioxide 26 (22-30) mmol/L Anion Gap 7 mmol/L BUN 31 H (9-20) mg/dL Creatinine 1.12 (0.66-1.25) mg/dL Est GFR (CKD-EPI)AfAm 80 (>60 ml/min/1.73 sqM) Est GFR (CKD-EPI)NonAf 69 (>60 ml/min/1.73 sqM) Glucose 116 H (74-99) mg/dL Plasma Lactic Acid Isaias (0.7-2.0) mmol/L Calcium 13.0 H (8.4-10.2) mg/dL Total Bilirubin 0.5 (0.2-1.3) mg/dL AST 105 H (17-59) U/L ALT 121 H (4-49) U/L Alkaline Phosphatase 193 H (38-126) U/L Troponin I (0.000-0.034) ng/mL Total Protein 7.0 (6.3-8.2) g/dL Albumin 3.8 (3.5-5.0) g/dL Lipase 42 (23-300) U/L 12/17/22 12/17/22 Range/Units 21:55 21:55 WBC (3.8-10.6) k/uL RBC (4.30-5.90) m/uL Hgb (13.0-17.5) gm/dL Hct (39.0-53.0) % MCV (80.0-100.0) fL MCH (25.0-35.0) pg MCHC (31.0-37.0) g/dL RDW (11.5-15.5) % Plt Count (150-450) k/uL MPV Neutrophils % % Lymphocytes % % Monocytes % % Eosinophils % % Basophils % % Neutrophils # (1.3-7.7) k/uL Lymphocytes # (1.0-4.8) k/uL Monocytes # (0-1.0) k/uL Eosinophils # (0-0.7) k/uL Basophils # (0-0.2) k/uL PT (9.0-12.0) sec INR (<1.2) D-Dimer (<0.60) mg/L FEU Sodium (137-145) mmol/L Potassium (3.5-5.1) mmol/L Chloride (98-107) mmol/L Carbon Dioxide (22-30) mmol/L Anion Gap mmol/L BUN (9-20) mg/dL Creatinine (0.66-1.25) mg/dL Est GFR (CKD-EPI)AfAm (>60 ml/min/1.73 sqM) Est GFR (CKD-EPI)NonAf (>60 ml/min/1.73 sqM) Glucose (74-99) mg/dL Plasma Lactic Acid Isaias 1.8 (0.7-2.0) mmol/L Calcium (8.4-10.2) mg/dL Total Bilirubin (0.2-1.3) mg/dL AST (17-59) U/L ALT (4-49) U/L Alkaline Phosphatase (38-126) U/L Troponin I 0.020 (0.000-0.034) ng/mL Total Protein (6.3-8.2) g/dL Albumin (3.5-5.0) g/dL Lipase (23-300) U/L Disposition Clinical Impression: Left carotid stenosis, Abdominal pain, Hypoxia, Hypercalcemia Disposition: ADMITTED IP TO THIS [facility] Condition: Stable Is patient prescribed a controlled substance at d/c from ED?: No Time of Disposition: : Decision to Admit Reason: Admit from EC Decision Date: 12/18/22 Decision Time: :29
--- NOTE | 2022-12-18 01:48 | CT ---
EXAM: CT Angiography Chest With Intravenous Contrast CLINICAL HISTORY: CT Reason: hypoxia, elevated d-dimer TECHNIQUE: Axial computed tomographic angiography images of the chest with intravenous contrast. CTDI is 22 mGy and DLP is 538.1 mGy-cm. This CT exam was performed using one or more of the following dose reduction techniques: automated exposure control, adjustment of the mA and/or kV according to patient size, and/or use of iterative reconstruction technique. MIP reconstructed images were created and reviewed. Coronal and sagittal reformatted images were created and reviewed. COMPARISON: November 17, 2022 FINDINGS: Pulmonary arteries: The pulmonary arterial tree is well opacified with contrast. There is mild motion artifact blurring the lower lobe branches bilaterally. No pulmonary embolism is identified. Aorta: The thoracic aorta is mildly calcified but nondilated. There is no aneurysm or dissection. 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 Lungs: There is a 1.5 cm pulmonary nodule in the left lower lobe, unchanged. Mild emphysematous changes are present in the upper lobes. There is a platelet consolidation in the right lower lobe posteriorly which may represent pneumonia or atelectasis. Pleural space: Unremarkable. No significant effusion. No pneumothorax. Heart: The heart is mildly enlarged. Severe coronary calcification is present. No significant pericardial effusion. No evidence of RV dysfunction. Bones/joints: Mild to moderate degenerative changes in the spine including an old healed compression fracture at T7, possibly pathologic, unchanged. No dislocation. Soft tissues: Unremarkable. Lymph nodes: Unremarkable. No enlarged lymph nodes. IMPRESSION: 1. The thoracic aorta is mildly calcified but nondilated. There is no aneurysm or dissection. 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 2. There is a 1.5 cm pulmonary nodule in the left lower lobe, unchanged. Mild emphysematous changes are present in the upper lobes. There is a platelet consolidation in the right lower lobe posteriorly which may represent pneumonia or atelectasis. 3. The pulmonary arterial tree is well opacified with contrast. There is mild motion artifact blurring the lower lobe branches bilaterally. No pulmonary embolism is identified. 4. The heart is mildly enlarged. Severe coronary calcification is present.
[2022-12-18] MEDS ORDERED: fentaNYL (PF) 50 MCG/ML 2 ML AMP IVP STA (01:50)
[2022-12-18] MEDS: SODIUM CHLORIDE 0.9% 1,000 ML IV SCH ×2 (02:25→17:41)
[2022-12-18] MEDS ORDERED: NALOXONE 0.4 MG/ML 1 ML VIAL IV PRN (02:29)
[2022-12-18] MEDS ORDERED: MORPHINE SULFATE 4 MG/ML SYRINGE IV PRN (02:29)
[2022-12-18] MEDS ORDERED: ONDANSETRON 4 MG/2 ML VIAL IVP PRN (02:29)
[2022-12-18] MEDS ORDERED: IPRATROPIUM-ALBUTEROL 3 ML NEB INHALATION STA (02:29)
[2022-12-18] MEDS ORDERED: methylPREDNISolone SOD SUCCI 125 MG/2 ML VIAL IV STA (02:29)
[2022-12-18] MEDS ORDERED: IPRATROPIUM-ALBUTEROL 3 ML NEB INHALATION SCH (04:00)
[2022-12-18] MEDS ORDERED: NITROGLYCERIN SL TABS 0.4 MG TAB SUBLINGUAL PRN (07:38)
[2022-12-18] MEDS ORDERED: ALBUTEROL NEBULIZED 2.5 MG/3 ML INHALATION PRN (07:38)
[2022-12-18] MEDS: EZETIMIBE 10 MG TAB PO SCH (08:28)
[2022-12-18] MEDS: SENNOSIDES-DOCUSATE SODIUM 1 EACH TAB PO SCH ×2 (08:28→21:02)
[2022-12-18] MEDS: METOPROLOL TARTRATE 25 MG TAB PO SCH ×2 (08:29→21:02)
[2022-12-18] MEDS: THIAMINE 100 MG TAB PO SCH (08:29)
[2022-12-18] MEDS: LOSARTAN 50 MG TAB PO SCH (08:29)
[2022-12-18] MEDS: ASPIRIN 81 MG PO SCH (08:29)
[2022-12-18] MEDS: DULoxetine HCL 30 MG CAPSULE.DR PO SCH ×2 (08:29→21:02)
[2022-12-18] MEDS: GABAPENTIN 300 MG CAP PO SCH ×2 (08:29→21:02)
[2022-12-18] MEDS: BACLOFEN 10 MG TAB PO SCH ×2 (08:29→21:02)
[2022-12-18] MEDS ORDERED: PANTOPRAZOLE 40 MG/10 ML VIAL IV SCH (09:00)
[2022-12-18] MEDS ORDERED: DEXTROSE 50% SYRINGE 50 ML IVP PRN (10:00)
[2022-12-18] MEDS: IPRATROPIUM-ALBUTEROL 3 ML NEB INHALATION SCH ×2 (10:07→20:49)
[2022-12-18] MEDS: SYMBICORT 160-4.5 MCG INHALER INHALATION SCH ×2 (10:08→20:49)
[2022-12-18 12:15] LABS: Glucose,Whole Blood 151 mg/dL (70-110)
--- NOTE | 2022-12-18 12:36 | P.CNPUL ---
History of Present Illness Consult date: 12/18/22 Reason for consult: dyspnea, COPD History of present illness: 67-year-old male patient was transferred to us from [facility] for diffuse pain. The pain is mainly across his chest and upper abdomen and across the rib cage addition to chronic back pain. Is known to have chronic dyspnea and the patient is noted COPD and a left lung pulmonary nodule that has been followed up on outpatient basis. Initially went to [facility] and his calcium level was noted to be elevated. Based on his ongoing symptoms, he was referred to us. His current calcium level is at 13. He did not have any previous issues with hypercalcemia. Is known to have COPD, pulmonary nodule, coronary artery disease and extensive peripheral vascular disease and the patient has undergone previous vascular bypass surgery and stenting to the lower extremities. He is also known to have previous history of DVT. Maintain on long-term anticoagulants. At the same time, the patient has hypertension, hyperlipidemia, obesity, chronic back pain and a recent MRI from August 2022 showed wedging of the L2 spine in the order of 15% without any acute fractures. There is also multilevel spondylitic changes and mildly prominent narrowing due to facet arthropathy and disc space narrowing at the level of L4-L5 and old compression fracture the level of L2. Mild edema in the anterior L3 vertebral and posterior L5 vertebral and there is no evidence of any significant lumbar stenosis. The computed tomography scan of the abdomen and pelvis that was done in 09/22/2022 showed moderate to severe narrowing throughout the bilateral external iliac arteries and a stent in the superficial femoral artery was patent on the left. There was cholelithiasis and moderate atherosclerotic changes throughout the abdominal aorta and colonic diverticulosis. There are atelectatic changes in the right posterior base. The abdomen is gravid 7.6, hemoglobin is 15.4 and platelet count is 135. LFTs are abnormal with a AST of 105, ALT 121 and alkaline phosphatase of 193. Bilirubin is at 0.5. Covid 19 testing is negative. Creatinine is at 1.1. Review of Systems Constitutional: Reports fatigue, Reports weight gain Eyes: denies as per HPI, denies blurred vision, denies bulging eye, denies decreased vision, denies diplopia, denies discharge, denies dry eye, denies irritation, denies itching, denies pain, denies photophobia, denies loss of peripheral vision, denies loss of vision, denies tunnel vision/blind spots Ears: deny: decreased hearing, ear discharge, earache, tinnitus Ears, nose, mouth and throat: Reports as per HPI Breasts: absent: as per HPI, gynecomastia Cardiovascular: Reports chest pain, Reports decreased exercise tolerance, Reports dyspnea on exertion, Reports shortness of breath Respiratory: Reports cough, Reports dyspnea Gastrointestinal: Reports abdominal pain Genitourinary: Reports as per HPI, Reports kidney stones Musculoskeletal: Reports gait dysfunction, Reports low back pain Musculoskeletal: absent: ankle pain, ankle stiffness, ankle swelling Integumentary: Reports as per HPI Neurological: Reports as per HPI Psychiatric: Reports as per HPI Endocrine: Reports as per HPI Hematologic/Lymphatic: Reports as per HPI Allergic/Immunologic: Reports as per HPI Past Medical History Past Medical History: Coronary Artery Disease (CAD), COPD, CVA/TIA, Deep Vein Thrombosis (DVT), Hyperlipidemia, Hypertension, Myocardial Infarction ([place]), Osteoarthritis (OA), Vascular Disorder Additional Past Medical History / Comment(s): PAD, dvt left leg, COVID 02/2021, TIA-no residual effects, gallstones, kidney stones Last Myocardial Infarction Date:: 04/20/20 History of Any Multi-Drug Resistant Organisms: None Reported Past Surgical History: Heart Catheterization With Stent, Hernia Repair, Joint Replacement, Orthopedic Surgery Additional Past Surgical History / Comment(s): abd. aortogram 09/04/20, L Fem- pop bypass with stent,x2 christy carotid endarterectomy, christy knee arthroscopy, rt hip replacement, one cardiac stent, surgery in October 2021 L lower extrem runoff with ballon angioplasty. Past Anesthesia/Blood Transfusion Reactions: No Reported Reaction Date of Last Stent Placement:: 08/2017 Past Psychological History: No Psychological Hx Reported Smoking Status: Former smoker Past Alcohol Use History: Daily Additional Past Alcohol Use History / Comment(s): quit smoking 2008, smoked 30- 40 yrs, 1 PPD Past Drug Use History: None Reported - Past Family History Father Family Medical History: Cancer Additional Family Medical History / Comment(s): lung Brother(s) Family Medical History: Cancer Son(s) Family Medical History: Cancer Medications and Allergies Home Medications Medication Instructions Recorded Confirmed Type Gabapentin [Neurontin] 600 mg PO BID 04/21/15 12/17/22 History HYDROcodone/APAP 10-325MG [[place] 1 tab PO QID PRN 04/21/15 12/17/22 History 10-325] EPINEPHrine (Auto Inject) [Epipen] 0.3 mg IM ONCE PRN 05/25/19 12/17/22 History Rivaroxaban [Xarelto] 2.5 mg PO BID 04/21/20 12/17/22 History Biotin 5 mg PO HS 09/01/20 12/17/22 History Ezetimibe [Zetia] 10 mg PO DAILY 09/01/20 12/17/22 History Metoprolol Tartrate [Lopressor] 25 mg PO BID 09/01/20 12/17/22 History Albuterol Sulfate [Ventolin HFA] 2 puff INHALATION RT-BID PRN 02/03/21 12/17/22 History Budesonide/Formoterol Fumarate 2 puff INHALATION RT-BID 02/03/21 12/17/22 History [Symbicort 160-4.5 Mcg Inhaler] Thiamine [Vitamin B-1] 100 mg PO DAILY #30 tab 02/05/21 12/17/22 Rx Baclofen [Lioresal] 20 mg PO BID 10/20/21 12/17/22 History Clopidogrel [Plavix] 75 mg PO HS 10/20/21 12/17/22 History Rosuvastatin Calcium [Crestor] 40 mg PO HS 10/20/21 12/17/22 History Aspirin [Adult Low Dose Aspirin EC] 81 mg PO DAILY 10/14/22 12/17/22 History DULoxetine HCL [Cymbalta] 30 mg PO BID 12/17/22 12/17/22 History Losartan [Cozaar] 50 mg PO DAILY 12/17/22 12/17/22 History Nitroglycerin Sl Tabs [Nitrostat] 0.4 mg SL Q5M PRN 12/17/22 12/17/22 History Sennosides-Docusate Sodium 2 tab PO BID 12/17/22 12/17/22 History [Senokot-S] amLODIPine [Norvasc] 10 mg PO HS 12/17/22 12/17/22 History predniSONE See Taper PO DAILY 12/17/22 12/17/22 History Allergies Allergy/AdvReac Type Severity Reaction Status Date / Time venom-honey bee Allergy Anaphylaxis Verified 12/17/22 22:28 [bee venom (honey bee)] Physical Exam Vitals: Vital Signs Temp Pulse Pulse Pulse Resp BP BP 12/18/22 10:21 86 12/18/22 10:14 84 12/18/22 07:45 97.5 F L 93 16 128/77 12/18/22 04:35 97.4 F L 92 20 145/82 12/18/22 04:05 80 18 134/76 12/18/22 03:16 83 12/18/22 03:12 12/18/22 03:09 82 12/18/22 02:41 65 16 134/74 12/17/22 21:05 97 F L 69 16 80/62 Pulse Ox 12/18/22 10:21 12/18/22 10:14 95 12/18/22 07:45 95 12/18/22 04:35 92 L 12/18/22 04:05 90 L 12/18/22 03:16 12/18/22 03:12 95 12/18/22 03:09 12/18/22 02:41 12/17/22 21:05 Intake and Output 12/17/22 12/18/22 12/18/22 22:59 06:59 14:59 Output Total 300 275 Balance -300 -275 Output: Urine 300 275 Other: Voiding Method Urinal Urinal Weight 98.43 kg 99 kg Gen. appearance obese, comfortable, no acute distress BMI 30.4 Head exam was generally normal. There was no scleral icterus or corneal arcus. Mucous membranes were moist. Neck was supple and without jugular venous distension, thyromegaly, or carotid bruits. Carotids were easily palpable bilaterally. There was no adenopathy. Lungs sounds are diminished bilaterally and the patient has scattered expiratory wheeze Cardiac exam revealed the PMI to be normally situated and sized. The rhythm was regular and no extrasystoles were noted during several minutes of auscultation. The first and second heart sounds were normal and physiologic splitting of the second heart sound was noted. There were no murmurs, rubs, clicks, or gallops. Abdominal exam revealed normal bowel sounds. The abdomen was soft, non-tender, and without masses, organomegaly, or appreciable enlargement of the abdominal aorta. Examination of the extremities revealed easily palpable radial, femoral and pedal pulses. There was no cyanosis, clubbing or edema. Examination of the skin revealed no evidence of significant rashes, suspicious appearing nevi or other concerning lesions. Neurologically, the patient is awake and alert and the patient does not have any focal neurological deficit. Cranial nerves are essentially intact. Results - Laboratory Findings CBC and BMP: 12/17/22 21:55 12/17/22 21:55 PT/INR, D-dimer PT 11.3 sec (9.0-12.0) 12/17/22 21:55 INR 1.1 (<1.2) 12/17/22 21:55 D-Dimer 2.56 mg/L FEU (<0.60) H 12/17/22 21:55 Abnormal lab findings: Abnormal Labs 12/17/22 12/17/22 12/17/22 21:55 21:55 21:55 Plt Count 135 L D-Dimer 2.56 H BUN 31 H Glucose 116 H Calcium 13.0 H AST 105 H ALT 121 H Alkaline Phosphatase 193 H - Diagnostic Findings CT scan - chest: image reviewed Assessment and Plan Plan: Diffuse skeletal pain involving the chest wall and back. Is currently under investigation. The patient was identified to have a recent hypercalcemia. Malignancy is obviously concerned. Hypercalcemia, rule out hyperparathyroidism. Rule out paraneoplastic. Rule out multiple myeloma. COPD Left lower lobe pulmonary nodule measuring 1.5 cm, will need an outpatient PET CT and further investigation. For now the pulmonary nodule is stable Coronary artery disease CVA Vascular disease with a previous fem-pop bypass surgery Bilateral carotid endarterectomies Coronary artery disease and coronary stenting Previous history of CVA Previous history of DVT of the left lower extremity Previous history of Covid 19 infection back in February 2021 Hypertension Hyperlipidemia Abnormal LFTs with cholelithiasis without evidence of cholecystitis History of nephrolithiasis Plan Check intact PTH Check serum protein electrophoresis and serum immunofixation and urine immunofixation May need a bone scan Hydration regarding hypercalcemia Monitor calcium level Outpatient PET scan regarding the pulmonary nodule Continue anticoagulation with that also Continue Symbicort Continue DuoNeb nebulized treatments [id number] We'll continue to follow
--- NOTE | 2022-12-18 12:59 | HP ---
HISTORY AND PHYSICAL CHIEF COMPLAINT: Abdominal pain. HISTORY OF PRESENT ILLNESS: This is a 67-year-old gentleman with a past medical history of multiple medical problems including COPD, peripheral vascular disease, presented to [facility] with upper abdominal pain. The pain was going on for the last several weeks. The CT showed a cirrhotic morphology of the liver apparently and cholelithiasis, and the patient admitted for further evaluation and treatment. A chest CTA was also done, which showed 1.5 cm pulmonary nodule, unchanged. Recommend outpatient followup. Otherwise, white count is normal. Surgical evaluation in progress. D-dimer is 2.56. There is no history of any fever, rigors, or chills at this time. PAST MEDICAL HISTORY: Reviewed include CAD, COPD. Rest of the history and rest of the chart is also reviewed. HOME MEDICATIONS: Reviewed include Norvasc 10 mg. Rest of the medications and doses are reviewed. ALLERGIES: Honey bee venom. FAMILY HISTORY: Lung cancer. SOCIAL HISTORY: History of smoking previously and alcohol daily. REVIEW OF SYSTEMS: A 14-point review of systems negative except as mentioned earlier. PHYSICAL EXAMINATION: VITAL SIGNS: Pulse is 84, blood pressure 128/76, respirations 16. HEENT: Conjunctivae normal. NECK: No JVD. CARDIOVASCULAR: S1, S2. RESPIRATIONS: Breath sounds diminished at the bases. A few scattered rhonchi and crackles. ABDOMEN: Soft, obese, mild diffuse tenderness in the upper part. LEGS: No edema. NERVOUS SYSTEM: No focal deficit. LABORATORY DATA: Reviewed. X-ray reviewed personally. The gallbladder ultrasound also reviewed personally. ASSESSMENT: 1. Upper abdominal pain, possibly cholelithiasis and cholecystitis. 2. Possible cirrhosis of liver secondary to EtOH. 3. Mild thrombocytopenia. 4. Elevated D-dimer without any evidence of pulmonary embolism. 5. Pulmonary nodules, stable. 6. Chronic obstructive pulmonary disease. 7. Deep venous thrombosis. 8. Multiple complex medical issues. RECOMMENDATIONS AND DISCUSSION: This is a 67-year-old gentleman presented with multiple complex medical issues, we will monitor the patient closely. I would recommend Surgery, Infectious Disease, and Pulmonary consultations. Otherwise, empiric antibiotics will be initiated. The patient is also started on steroids and bronchodilators. Resume the home medications. Guarded prognosis. Further recommendations to follow. See orders for further details. We will obtain cultures. MMODL / IJN: [id number] /
[2022-12-18] MEDS: INSULIN ASPART (NovoLOG) 100 UNIT/ML VIAL SQ SCH ×3 (13:05→21:01)
[2022-12-18] MEDS: methylPREDNISolone SOD SUCCI 125 MG/2 ML VIAL IV SCH ×3 (13:05→23:55)
[2022-12-18] MEDS: RIVAROXABAN 2.5 MG TABLET PO SCH ×2 (13:06→21:02)
--- NOTE | 2022-12-18 14:52 | P.GSCN ---
History of Present Illness Consult date: 12/18/22 History of present illness: CHIEF COMPLAINT: Abdominal pain HISTORY OF PRESENT ILLNESS: The patient is a 67-year-old male who complains of upper abdominal "cage pain" which is moderate to severe. He also complains of lower abdominal pain of less intensity. He reports eating mohawk food. No prior abdominal pain of this intensity. He reports pain radiates from the left upper to left shoulder and mid back. Pain is centered at the epigastrium. General surgery is consulted for abdominal pain. He reports getting a pain shot just prior to my assessment. PAST MEDICAL HISTORY: Please see list. PAST SURGICAL HISTORY: Please see list. MEDICATIONS: Please see list. ALLERGIES: Please see list. SOCIAL HISTORY: No illicit drug use FAMILY HISTORY: No reports of Crohn disease or ulcerative colitis. REVIEW OF ORGAN SYSTEMS: CONSTITUTIONAL: No reports of fevers or chills. PHYSICAL EXAM: VITAL SIGNS: Stable GENERAL: Well-developed pleasant and in no acute distress. HEENT: No scleral icterus. Extraocular movements grossly intact. Moist buccal mucosa. NECK: Supple without lymphadenopathy. CHEST: Unlabored respirations. Equal bilateral excursions. CARDIOVASCULAR: Regular rate and rhythm. Distal 2+ pulses. ABDOMEN: No diffuse tenderness. MUSCULOSKELETAL: No clubbing, cyanosis, or edema. STUDIES: Outside CT scan reviewed with gallstones identified. No free air or small bowel obstruction. This is my independent interpretation. Ultrasound of the gallbladder independently reviewed without gallbladder wall thickening. This is my independent interpretation LABS: Reviewed. ASSESSMENT: 1. Bilateral upper abdominal pain 2. Gallstones PLAN: 1. He is tolerating heart healthy diet with beef stroganof. May continue diet. 2. Monitor LFTs. 3. No acute surgical intervention at this time. Past Medical History Past Medical History: Coronary Artery Disease (CAD), COPD, CVA/TIA, Deep Vein Thrombosis (DVT), Hyperlipidemia, Hypertension, Myocardial Infarction ([place]), Osteoarthritis (OA), Vascular Disorder Additional Past Medical History / Comment(s): PAD, dvt left leg, COVID 02/2021, TIA-no residual effects, gallstones, kidney stones Last Myocardial Infarction Date:: 04/20/20 History of Any Multi-Drug Resistant Organisms: None Reported Past Surgical History: Heart Catheterization With Stent, Hernia Repair, Joint Replacement, Orthopedic Surgery Additional Past Surgical History / Comment(s): abd. aortogram 09/04/20, L Fem- pop bypass with stent,x2 christy carotid endarterectomy, christy knee arthroscopy, rt hip replacement, one cardiac stent, surgery in October 2021 L lower extrem runoff with ballon angioplasty. Past Anesthesia/Blood Transfusion Reactions: No Reported Reaction Date of Last Stent Placement:: 08/2017 Past Psychological History: No Psychological Hx Reported Smoking Status: Former smoker Past Alcohol Use History: Daily Additional Past Alcohol Use History / Comment(s): quit smoking 2008, smoked 30- 40 yrs, 1 PPD Past Drug Use History: None Reported - Past Family History Father Family Medical History: Cancer Additional Family Medical History / Comment(s): lung Brother(s) Family Medical History: Cancer Son(s) Family Medical History: Cancer Medications and Allergies Home Medications Medication Instructions Recorded Confirmed Type Gabapentin [Neurontin] 600 mg PO BID 04/21/15 12/17/22 History HYDROcodone/APAP 10-325MG [[place] 1 tab PO QID PRN 04/21/15 12/17/22 History 10-325] EPINEPHrine (Auto Inject) [Epipen] 0.3 mg IM ONCE PRN 05/25/19 12/17/22 History Rivaroxaban [Xarelto] 2.5 mg PO BID 04/21/20 12/17/22 History Biotin 5 mg PO HS 09/01/20 12/17/22 History Ezetimibe [Zetia] 10 mg PO DAILY 09/01/20 12/17/22 History Metoprolol Tartrate [Lopressor] 25 mg PO BID 09/01/20 12/17/22 History Albuterol Sulfate [Ventolin HFA] 2 puff INHALATION RT-BID PRN 02/03/21 12/17/22 History Budesonide/Formoterol Fumarate 2 puff INHALATION RT-BID 02/03/21 12/17/22 History [Symbicort 160-4.5 Mcg Inhaler] Thiamine [Vitamin B-1] 100 mg PO DAILY #30 tab 02/05/21 12/17/22 Rx Baclofen [Lioresal] 20 mg PO BID 10/20/21 12/17/22 History Clopidogrel [Plavix] 75 mg PO HS 10/20/21 12/17/22 History Rosuvastatin Calcium [Crestor] 40 mg PO HS 10/20/21 12/17/22 History Aspirin [Adult Low Dose Aspirin EC] 81 mg PO DAILY 10/14/22 12/17/22 History DULoxetine HCL [Cymbalta] 30 mg PO BID 12/17/22 12/17/22 History Losartan [Cozaar] 50 mg PO DAILY 12/17/22 12/17/22 History Nitroglycerin Sl Tabs [Nitrostat] 0.4 mg SL Q5M PRN 12/17/22 12/17/22 History Sennosides-Docusate Sodium 2 tab PO BID 12/17/22 12/17/22 History [Senokot-S] amLODIPine [Norvasc] 10 mg PO HS 12/17/22 12/17/22 History predniSONE See Taper PO DAILY 12/17/22 12/17/22 History Allergies Allergy/AdvReac Type Severity Reaction Status Date / Time venom-honey bee Allergy Anaphylaxis Verified 12/17/22 22:28 [bee venom (honey bee)] Surgical - Exam Vital Signs Temp Pulse Resp BP 97 F L 69 16 80/62 12/17/22 21:05 12/17/22 21:05 12/17/22 21:05 12/17/22 21:05 Results - Labs 12/17/22 21:55 12/17/22 21:55 Abnormal Lab Results - Last 24 Hours (Table) 12/17/22 12/17/22 12/17/22 Range/Units 21:55 21:55 21:55 Plt Count 135 L (150-450) k/uL D-Dimer 2.56 H (<0.60) mg/L FEU BUN 31 H (9-20) mg/dL Glucose 116 H (74-99) mg/dL POC Glucose (mg/dL) (70-110) mg/dL Calcium 13.0 H (8.4-10.2) mg/dL AST 105 H (17-59) U/L ALT 121 H (4-49) U/L Alkaline Phosphatase 193 H (38-126) U/L 12/18/22 Range/Units 12:09 Plt Count (150-450) k/uL D-Dimer (<0.60) mg/L FEU BUN (9-20) mg/dL Glucose (74-99) mg/dL POC Glucose (mg/dL) 151 H (70-110) mg/dL Calcium (8.4-10.2) mg/dL AST (17-59) U/L ALT (4-49) U/L Alkaline Phosphatase (38-126) U/L Diabetes panel 12/17/22 Range/Units 21:55 Sodium 137 (137-145) mmol/L Potassium 4.1 (3.5-5.1) mmol/L Chloride 104 (98-107) mmol/L Carbon Dioxide 26 (22-30) mmol/L BUN 31 H (9-20) mg/dL Creatinine 1.12 (0.66-1.25) mg/dL Glucose 116 H (74-99) mg/dL Calcium 13.0 H (8.4-10.2) mg/dL AST 105 H (17-59) U/L ALT 121 H (4-49) U/L Alkaline Phosphatase 193 H (38-126) U/L Total Protein 7.0 (6.3-8.2) g/dL Albumin 3.8 (3.5-5.0) g/dL Calcium panel 12/17/22 Range/Units 21:55 Calcium 13.0 H (8.4-10.2) mg/dL Albumin 3.8 (3.5-5.0) g/dL Pituitary panel 12/17/22 Range/Units 21:55 Sodium 137 (137-145) mmol/L Potassium 4.1 (3.5-5.1) mmol/L Chloride 104 (98-107) mmol/L Carbon Dioxide 26 (22-30) mmol/L BUN 31 H (9-20) mg/dL Creatinine 1.12 (0.66-1.25) mg/dL Glucose 116 H (74-99) mg/dL Calcium 13.0 H (8.4-10.2) mg/dL Adrenal panel 12/17/22 Range/Units 21:55 Sodium 137 (137-145) mmol/L Potassium 4.1 (3.5-5.1) mmol/L Chloride 104 (98-107) mmol/L Carbon Dioxide 26 (22-30) mmol/L BUN 31 H (9-20) mg/dL Creatinine 1.12 (0.66-1.25) mg/dL Glucose 116 H (74-99) mg/dL Calcium 13.0 H (8.4-10.2) mg/dL Total Bilirubin 0.5 (0.2-1.3) mg/dL AST 105 H (17-59) U/L ALT 121 H (4-49) U/L Alkaline Phosphatase 193 H (38-126) U/L Total Protein 7.0 (6.3-8.2) g/dL Albumin 3.8 (3.5-5.0) g/dL
[2022-12-18] MEDS: PIPERACILLIN-TAZOBACTAM 3.375 GM in SODIUM CHLORIDE 0.9% 100 ML IVPB SCH ×2 (17:03→23:56)
[2022-12-18 17:11] LABS: Glucose,Whole Blood 195 mg/dL (70-110)
--- NOTE | 2022-12-18 18:39 | P.CONS ---
History of Present Illness - Reason for Consult Consult date: 12/18/22 Questionable cholecystitis Requesting physician: Ade Lyon - Chief Complaint Generalized body aches x days - History of Present Illness Patient is a 67-year-old male with a past medical history significant for hypertension hyperlipidemia CA COPD coronary artery disease and DVT presenting to the [facility] for evaluation of diffuse pain patient complaining of pain to the left shoulder area as well as to the upper abdominal area patient describes the pain to be more of a sharp in nature intensity 70 8 out of 10 and no radiation patient apparently noted to have elevated calcium at the outside facility patient subsequently has been transferred to [facility] for further work-up on presentation to the hospital the patient was afebrile and no fever has been recorded subsequently patient was hypoxic and requiring supplemental oxygen currently on 4 L nasal cannula oxygen patient did have a normal white count creatinine has been normal calcium is 13 liver enzymes are mildly elevated COVID testing was negative patient did have a gallbladder ultrasound gallbladder is normally distended and no gallstones are identified wall thickness is upper limit normal patient also have a chest x-ray reticular increased density throughout the mid to lower lungs bilaterally consider interstitial pneumonitis patient did have a CT angiogram of the chest did not show any PE there was mildly calcified thoracic aorta with no aneurysm or dilatation 1.5 cm pulmonary nodule in the left lower lobe unchanged there is consolidation in the right lower lobe posteriorly possibly pneumonia versus atelectasis and severe coronary constipation infectious disease was consulted for further management of antibiotic therapy and concern for possible cholecystitis Review of Systems Positive point and negatives has been mentioned in the HPI, complete review of systems was performed and all other systems are negative Past Medical History Past Medical History: Coronary Artery Disease (CAD), COPD, CVA/TIA, Deep Vein Thrombosis (DVT), Hyperlipidemia, Hypertension, Myocardial Infarction (CA), Oste oarthritis (OA), Vascular Disorder Additional Past Medical History / Comment(s): PAD, dvt left leg, COVID 02/2021, TIA-no residual effects, gallstones, kidney stones Last Myocardial Infarction Date:: 04/20/20 History of Any Multi-Drug Resistant Organisms: None Reported Past Surgical History: Heart Catheterization With Stent, Hernia Repair, Joint Replacement, Orthopedic Surgery Additional Past Surgical History / Comment(s): abd. aortogram 09/04/20, L Fem- pop bypass with stent,x2 christy carotid endarterectomy, christy knee arthroscopy, rt hip replacement, one cardiac stent, surgery in October 2021 L lower extrem runoff with ballon angioplasty. Past Anesthesia/Blood Transfusion Reactions: No Reported Reaction Date of Last Stent Placement:: 08/2017 Past Psychological History: No Psychological Hx Reported Smoking Status: Former smoker Past Alcohol Use History: Daily Additional Past Alcohol Use History / Comment(s): quit smoking 2008, smoked 30- 40 yrs, 1 PPD Past Drug Use History: None Reported - Past Family History Father Family Medical History: Cancer Additional Family Medical History / Comment(s): lung Brother(s) Family Medical History: Cancer Son(s) Family Medical History: Cancer Medications and Allergies Home Medications Medication Instructions Recorded Confirmed Type Gabapentin [Neurontin] 600 mg PO BID 04/21/15 12/17/22 History HYDROcodone/APAP 10-325MG [[place] 1 tab PO QID PRN 04/21/15 12/17/22 History 10-325] EPINEPHrine (Auto Inject) [Epipen] 0.3 mg IM ONCE PRN 05/25/19 12/17/22 History Rivaroxaban [Xarelto] 2.5 mg PO BID 04/21/20 12/17/22 History Biotin 5 mg PO HS 09/01/20 12/17/22 History Ezetimibe [Zetia] 10 mg PO DAILY 09/01/20 12/17/22 History Metoprolol Tartrate [Lopressor] 25 mg PO BID 09/01/20 12/17/22 History Albuterol Sulfate [Ventolin HFA] 2 puff INHALATION RT-BID PRN 02/03/21 12/17/22 History Budesonide/Formoterol Fumarate 2 puff INHALATION RT-BID 02/03/21 12/17/22 History [Symbicort 160-4.5 Mcg Inhaler] Thiamine [Vitamin B-1] 100 mg PO DAILY #30 tab 02/05/21 12/17/22 Rx Baclofen [Lioresal] 20 mg PO BID 10/20/21 12/17/22 History Clopidogrel [Plavix] 75 mg PO HS 10/20/21 12/17/22 History Rosuvastatin Calcium [Crestor] 40 mg PO HS 10/20/21 12/17/22 History Aspirin [Adult Low Dose Aspirin EC] 81 mg PO DAILY 10/14/22 12/17/22 History DULoxetine HCL [Cymbalta] 30 mg PO BID 12/17/22 12/17/22 History Losartan [Cozaar] 50 mg PO DAILY 12/17/22 12/17/22 History Nitroglycerin Sl Tabs [Nitrostat] 0.4 mg SL Q5M PRN 12/17/22 12/17/22 History Sennosides-Docusate Sodium 2 tab PO BID 12/17/22 12/17/22 History [Senokot-S] amLODIPine [Norvasc] 10 mg PO HS 12/17/22 12/17/22 History predniSONE See Taper PO DAILY 12/17/22 12/17/22 History Ergocalciferol [Vitamin D2 (1250 1,250 mcg PO Q72H #0 cap 01/10/23 Rx Mcg = 92047 Iu)] fentaNYL 50MCG/HR PATCH [Duragesic 1 patch TRANSDERM Q72H patch 01/10/23 Rx 50MCG/HR] Allergies Allergy/AdvReac Type Severity Reaction Status Date / Time venom-honey bee Allergy Anaphylaxis Verified 12/17/22 22:28 [bee venom (honey bee)] Physical Exam Vitals: Vital Signs Temp Pulse Pulse Pulse Resp BP BP 12/18/22 10:21 86 12/18/22 10:14 84 12/18/22 07:45 97.5 F L 93 16 128/77 12/18/22 04:35 97.4 F L 92 20 145/82 12/18/22 04:05 80 18 134/76 12/18/22 03:16 83 12/18/22 03:12 12/18/22 03:09 82 12/18/22 02:41 65 16 134/74 12/17/22 21:05 97 F L 69 16 80/62 Pulse Ox 12/18/22 10:21 12/18/22 10:14 95 12/18/22 07:45 95 12/18/22 04:35 92 L 12/18/22 04:05 90 L 12/18/22 03:16 12/18/22 03:12 95 12/18/22 03:09 12/18/22 02:41 12/17/22 21:05 Intake and Output 12/17/22 12/18/22 12/18/22 22:59 06:59 14:59 Output Total 300 275 Balance -300 -275 Output: Urine 300 275 Other: Voiding Method Urinal Urinal Weight 98.43 kg 99 kg GENERAL DESCRIPTION: Elderly male lying in bed, no distress. No tachypnea or accessory muscle of respiration use. HEENT: Shows Pallor , no scleral icterus. Oral mucous membrane is dry. No pharyngeal erythema or thrush NECK: Trachea central, no thyromegaly. LUNGS: Unlabored breathing. Decreased breath sound at the base HEART: S1, S2, regular rate and rhythm. No loud murmur ABDOMEN: Soft, no tenderness EXTREMITIES: No edema of feet. SKIN: No rash, no masses palpable. NEUROLOGICAL: The patient is awake, alert, oriented x3, mood and affect normal. Results CBC & Chem 7: 01/10/23 03:00 01/10/23 03:00 Labs: Abnormal Lab Results - Last 24 Hours (Table) 12/17/22 12/17/22 12/17/22 Range/Units 21:55 21:55 21:55 Plt Count 135 L (150-450) k/uL D-Dimer 2.56 H (<0.60) mg/L FEU BUN 31 H (9-20) mg/dL Glucose 116 H (74-99) mg/dL POC Glucose (mg/dL) (70-110) mg/dL Calcium 13.0 H (8.4-10.2) mg/dL AST 105 H (17-59) U/L ALT 121 H (4-49) U/L Alkaline Phosphatase 193 H (38-126) U/L 12/18/22 Range/Units 12:09 Plt Count (150-450) k/uL D-Dimer (<0.60) mg/L FEU BUN (9-20) mg/dL Glucose (74-99) mg/dL POC Glucose (mg/dL) 151 H (70-110) mg/dL Calcium (8.4-10.2) mg/dL AST (17-59) U/L ALT (4-49) U/L Alkaline Phosphatase (38-126) U/L Assessment and Plan (1) Pneumonia Status: Acute Code(s): J18.9 - PNEUMONIA, UNSPECIFIED ORGANISM SNOMED Code(s): 897037549 Plan: 1patient was in the hospital generalized body aches has been complaining of pain mostly to the bilateral rib cage area and to the posterior shoulder patient did have mildly elevated liver enzymes however ultrasound did show some mild wall thickness but no gallstones or any pericholecystic fluid patient was mildly tender in the right upper quadrant area underlying cholecystitis less likely but not entirely excluded 2-patient did have some shortness of breath and a cough and did have a consolidation seen on the CT angiogram of the chest concerning for possible pneumonia 3-we will obtain CRP procalcitonin sputum for Gram stain and culture 4-empirically add Zosyn while waiting for the work-up to be completed We will follow on clinical condition and cultures to further adjust medication if needed Thank you for this consultation we will follow the patient along with you Dictation was produced using [employer] dictation software. please excuse any grammatical, word or spelling errors. Time with Patient: Greater than 30
[2022-12-18 20:49] LABS: Glucose,Whole Blood 171 mg/dL (70-110)
[2022-12-18] MEDS ORDERED: NON FORMULARY DRUG (Biotin [Biotin] 5 MG Capsule) PO SCH (21:00)
[2022-12-18] MEDS: ATORVASTATIN 80 MG TAB PO SCH (21:02)
[2022-12-18] MEDS: CLOPIDOGREL 75 MG TAB PO SCH (21:02)
[2022-12-18] MEDS: amLODIPine 10 MG TAB PO SCH (21:02)
[2022-12-18] MEDS: PANTOPRAZOLE 40 MG/10 ML VIAL IV SCH (21:06)
[2022-12-19] MEDS: HYDROcodone/APAP 10-325MG 1 EACH TAB PO PRN ×2 (01:57→08:30)
[2022-12-19] MEDS: methylPREDNISolone SOD SUCCI 125 MG/2 ML VIAL IV SCH ×4 (06:09→23:55)
[2022-12-19] MEDS: SODIUM CHLORIDE 0.9% 1,000 ML IV SCH ×2 (06:10→18:01)
[2022-12-19] MEDS: PIPERACILLIN-TAZOBACTAM 3.375 GM in SODIUM CHLORIDE 0.9% 100 ML IVPB SCH ×3 (07:26→23:55)
[2022-12-19 07:48] LABS: Basophils % (A) 0 %; Eosinophils % (A) 0 %; HCT 47.6 % (39.0-53.0); HGB 15.5 gm/dL (13.0-17.5); Lymphocytes # (A) 0.7 k/uL (1.0-4.8); Lymphocytes % (A) 8 %; MCHC 32.5 g/dL (31.0-37.0); MCV 98.6 fL (80.0-100.0); Mean Platelet Volume 7.6; Monocytes # (A) 0.4 k/uL (0-1.0); Monocytes % (A) 5 %; Neutrophils % (A) 87 %; Platelet Count 132 k/uL (150-450); RBC 4.83 m/uL (4.30-5.90); RDW 13.2 % (11.5-15.5); WBC 9.3 k/uL (3.8-10.6)
[2022-12-19 07:58] LABS: ALT 96 U/L (4-49); AST 109 U/L (17-59); African American GFR (CKD) 74 (>60 ml/min/1.73 sqM); Albumin 3.6 g/dL (3.5-5.0); Albumin/Globulin Ratio 1.1; Alkaline Phosphatase 178 U/L (38-126); Anion Gap 6 mmol/L; Blood Urea Nitrogen 28 mg/dL (9-20); C Reactive Protein 1.9 mg/dL (<1.0); Calcium 12.8 mg/dL (8.4-10.2); Carbon Dioxide 28 mmol/L (22-30); Chloride 106 mmol/L (98-107); Globulin 3.4 g/dL; Glucose 135 mg/dL (74-99); Non-African American GFR(CKD) 64 (>60 ml/min/1.73 sqM); Potassium 4.2 mmol/L (3.5-5.1); Sodium 140 mmol/L (137-145); Total Bilirubin 0.6 mg/dL (0.2-1.3)
[2022-12-19] MEDS: IPRATROPIUM-ALBUTEROL 3 ML NEB INHALATION SCH ×2 (08:05→19:57)
[2022-12-19] MEDS: SYMBICORT 160-4.5 MCG INHALER INHALATION SCH ×2 (08:05→19:57)
[2022-12-19 08:12] LABS: Glucose,Whole Blood 138 mg/dL (70-110)
[2022-12-19] MEDS: INSULIN ASPART (NovoLOG) 100 UNIT/ML VIAL SQ SCH ×4 (08:23→21:47)
[2022-12-19] MEDS: BACLOFEN 10 MG TAB PO SCH ×2 (08:32→21:46)
[2022-12-19] MEDS: THIAMINE 100 MG TAB PO SCH (08:32)
[2022-12-19] MEDS: EZETIMIBE 10 MG TAB PO SCH (08:32)
[2022-12-19] MEDS: GABAPENTIN 300 MG CAP PO SCH ×2 (08:32→21:47)
[2022-12-19] MEDS: DULoxetine HCL 30 MG CAPSULE.DR PO SCH ×2 (08:32→21:47)
[2022-12-19] MEDS: METOPROLOL TARTRATE 25 MG TAB PO SCH ×2 (08:33→21:46)
[2022-12-19] MEDS: RIVAROXABAN 2.5 MG TABLET PO SCH ×2 (08:33→22:39)
[2022-12-19] MEDS: ASPIRIN 81 MG PO SCH (08:33)
[2022-12-19] MEDS: LOSARTAN 50 MG TAB PO SCH (08:33)
[2022-12-19] MEDS: SENNOSIDES-DOCUSATE SODIUM 1 EACH TAB PO SCH ×2 (08:33→21:46)
[2022-12-19] MEDS: PANTOPRAZOLE 40 MG/10 ML VIAL IV SCH ×2 (09:16→21:48)
[2022-12-19] MEDS: HYDROmorphone 0.5 MG/0.5 ML SYRINGE IVP PRN ×2 (10:22→22:00)
[2022-12-19 10:27] LABS: Albumin 3.8 d/dL (3.8-4.9); Protein, Total 6.7 d/dL (6.2-8.2)
--- NOTE | 2022-12-19 11:41 | P.PN ---
Subjective Progress Note Date: 12/19/22 67-year-old male patient was transferred to us from [facility] for diffuse pain. The pain is mainly across his chest and upper abdomen and across the rib cage addition to chronic back pain. Is known to have chronic dyspnea and the patient is noted COPD and a left lung pulmonary nodule that has been followed up on outpatient basis. Initially went to [facility] and his calcium level was noted to be elevated. Based on his ongoing symptoms, he was referred to us. His current calcium level is at 13. He did not have any previous issues with hypercalcemia. Is known to have COPD, pulmonary nodule, coronary artery disease and extensive peripheral vascular disease and the sruthi ent has undergone previous vascular bypass surgery and stenting to the lower extremities. He is also known to have previous history of DVT. Maintain on long-term anticoagulants. At the same time, the patient has hypertension, hyperlipidemia, obesity, chronic back pain and a recent MRI from August 2022 showed wedging of the L2 spine in the order of 15% without any acute fractures. There is also multilevel spondylitic changes and mildly prominent narrowing due to facet arthropathy and disc space narrowing at the level of L4-L5 and old compression fracture the level of L2. Mild edema in the anterior L3 vertebral and posterior L5 vertebral and there is no evidence of any significant lumbar s tenosis. The computed tomography scan of the abdomen and pelvis that was done in 09/22/2022 showed moderate to severe narrowing throughout the bilateral external iliac arteries and a stent in the superficial femoral artery was patent on the left. There was cholelithiasis and moderate atherosclerotic changes throughout the abdominal aorta and colonic diverticulosis. There are atelectatic changes in the right posterior base. The abdomen is gravid 7.6, hemoglobin is 15.4 and platelet count is 135. LFTs are abnormal with a AST of 105, ALT 121 and alkaline phosphatase of 193. Bilirubin is at 0.5. Covid 19 testing is negative. Creatinine is at 1.1. On 12/19/2022, the patient is stable without any change in his condition. On 12/19/2022, the patient is stable without any changes condition. Calcium level today is at 12.8. Awaiting further workup. Remains on IV fluids and Zosyn. Remains on anticoagulation with is xarelto Objective - Vital Signs Vital signs: Vital Signs Temp 97.4 F L 12/19/22 08:13 Pulse 74 12/19/22 08:13 Resp 19 12/19/22 08:13 BP 178/88 12/19/22 08:13 Pulse Ox 92 L 12/19/22 08:13 FiO2 Intake & Output 12/18/22 12/19/22 12/19/22 18:59 06:59 18:59 Intake Total 900 Output Total 275 400 Balance 625 -400 Intake: Intake, IV Titration 900 Amount Sodium Chloride 0.9% 1, 900 000 ml @ 75 mls/hr IV . [id number] [facility] Rx#:[id number] Output: Urine 275 400 Other: Voiding Method Urinal Urinal Urinal # Voids 2 1 - Exam Gen. appearance obese, comfortable, no acute distress BMI 30.4 Head exam was generally normal. There was no scleral icterus or corneal arcus. Mucous membranes were moist. Neck was supple and without jugular venous distension, thyromegaly, or carotid bruits. Carotids were easily palpable bilaterally. There was no adenopathy. Lungs sounds are diminished bilaterally and the patient has scattered expiratory wheeze Cardiac exam revealed the PMI to be normally situated and sized. The rhythm was regular and no extrasystoles were noted during several minutes of auscultation. The first and second heart sounds were normal and physiologic splitting of the second heart sound was noted. There were no murmurs, rubs, clicks, or gallops. Abdominal exam revealed normal bowel sounds. The abdomen was soft, non-tender, and without masses, organomegaly, or appreciable enlargement of the abdominal aorta. Examination of the extremities revealed easily palpable radial, femoral and pedal pulses. There was no cyanosis, clubbing or edema. Examination of the skin revealed no evidence of significant rashes, suspicious appearing nevi or other concerning lesions. Neurologically, the patient is awake and alert and the patient does not have any focal neurological deficit. Cranial nerves are essentially intact. - Labs CBC & Chem 7: 12/19/22 07:07 12/19/22 07:07 Labs: Abnormal Lab Results - Last 24 Hours (Table) 12/18/22 12/18/22 12/18/22 Range/Units 12:09 17:10 20:45 Plt Count (150-450) k/uL Neutrophils # (1.3-7.7) k/uL Lymphocytes # (1.0-4.8) k/uL BUN (9-20) mg/dL Glucose (74-99) mg/dL POC Glucose (mg/dL) 151 H 195 H 171 H (70-110) mg/dL Calcium (8.4-10.2) mg/dL AST (17-59) U/L ALT (4-49) U/L Alkaline Phosphatase (38-126) U/L C-Reactive Protein (<1.0) mg/dL 12/19/22 12/19/22 12/19/22 Range/Units 07:07 07:07 08:10 Plt Count 132 L (150-450) k/uL Neutrophils # 8.0 H (1.3-7.7) k/uL Lymphocytes # 0.7 L (1.0-4.8) k/uL BUN 28 H (9-20) mg/dL Glucose 135 H (74-99) mg/dL POC Glucose (mg/dL) 138 H (70-110) mg/dL Calcium 12.8 H (8.4-10.2) mg/dL AST 109 H (17-59) U/L ALT 96 H (4-49) U/L Alkaline Phosphatase 178 H (38-126) U/L C-Reactive Protein 1.9 H (<1.0) mg/dL Assessment and Plan Plan: Diffuse skeletal pain involving the chest wall and back. Is currently under investigation. The patient was identified to have a recent hypercalcemia. Malignancy is obviously concerned. Calcium level today is at 12.8 Hypercalcemia, rule out hyperparathyroidism. Rule out paraneoplastic. Rule out multiple myeloma. Calcium level is down to 12.8 COPD Left lower lobe pulmonary nodule measuring 1.5 cm, will need an outpatient PET CT and further investigation. For now the pulmonary nodule is stable Coronary artery disease CVA Vascular disease with a previous fem-pop bypass surgery Bilateral carotid endarterectomies Coronary artery disease and coronary stenting Previous history of CVA Previous history of DVT of the left lower extremity Previous history of Covid 19 infection back in February 2021 Hypertension Hyperlipidemia Abnormal LFTs with cholelithiasis without evidence of cholecystitis History of nephrolithiasis Plan Check intact PTH Check serum protein electrophoresis and serum immunofixation and urine immunofixation May need a bone scan Hydration regarding hypercalcemia, calcium level is improving is down to 12.8 Monitor calcium level Outpatient PET scan regarding the pulmonary nodule Continue anticoagulation with that also Continue Symbicort Continue DuoNeb nebulized treatments [id number] Continue anticoagulation with xarelto We'll continue to follow
[2022-12-19 12:17] LABS: Glucose,Whole Blood 141 mg/dL (70-110)
--- NOTE | 2022-12-19 15:49 | P.PN ---
Subjective Progress Note Date: 12/19/22 CHIEF COMPLAINT: Abdominal pain HISTORY OF PRESENT ILLNESS: The patient is a 67-year-old male who complains of upper abdominal pain. He is resting comfortably. No reports of emesis. No new issues overnight. REVIEW OF ORGAN SYSTEMS: CONSTITUTIONAL: No reports of fevers or chills. PHYSICAL EXAM: VITAL SIGNS: Stable GENERAL: Well-developed pleasant and in no acute distress. HEENT: No scleral icterus. Extraocular movements grossly intact. Moist buccal mucosa. NECK: Supple without lymphadenopathy. CHEST: Unlabored respirations. Equal bilateral excursions. CARDIOVASCULAR: Regular rate and rhythm. Distal 2+ pulses. ABDOMEN: No peritonitis MUSCULOSKELETAL: No clubbing, cyanosis, or edema. LABS: Reviewed. LFTs elevated. ASSESSMENT: 1. Bilateral upper abdominal pain 2. Gallstones PLAN: 1. LFTs are elevated in the presence of gallstones. Recommend conservative management due to exacerbation of COPD. 2. Low fat diet advised. Objective - Vital Signs Vital signs: Vital Signs Temp 97.7 F 12/19/22 13:55 Pulse 72 12/19/22 13:55 Resp 18 12/19/22 13:55 BP 127/73 12/19/22 13:55 Pulse Ox 93 L 12/19/22 13:55 FiO2 Intake & Output 12/18/22 12/19/22 12/19/22 18:59 06:59 18:59 Intake Total 900 Output Total 275 400 Balance 625 -400 Intake: Intake, IV Titration 900 Amount Sodium Chloride 0.9% 1, 900 000 ml @ 75 mls/hr IV . [id number] [facility] Rx#:[id number] Output: Urine 275 400 Other: Voiding Method Urinal Urinal Urinal # Voids 2 1 - Labs CBC & Chem 7: 12/19/22 07:07 12/19/22 07:07 Labs: Abnormal Lab Results - Last 24 Hours (Table) 12/18/22 12/18/22 12/18/22 Range/Units 11:38 17:10 20:45 Plt Count (150-450) k/uL Neutrophils # (1.3-7.7) k/uL Lymphocytes # (1.0-4.8) k/uL BUN (9-20) mg/dL Glucose (74-99) mg/dL POC Glucose (mg/dL) 195 H 171 H (70-110) mg/dL Hemoglobin A1c (<=6.0) % Calcium (8.4-10.2) mg/dL AST (17-59) U/L ALT (4-49) U/L Alkaline Phosphatase (38-126) U/L C-Reactive Protein (<1.0) mg/dL Procalcitonin (0.02-0.09) ng/mL PTH Intact 5.4 L (14.0-72.0) pg/mL 12/19/22 12/19/22 12/19/22 Range/Units 07:07 07:07 07:07 Plt Count (150-450) k/uL Neutrophils # (1.3-7.7) k/uL Lymphocytes # (1.0-4.8) k/uL BUN 28 H (9-20) mg/dL Glucose 135 H (74-99) mg/dL POC Glucose (mg/dL) (70-110) mg/dL Hemoglobin A1c 7.0 H (<=6.0) % Calcium 12.8 H (8.4-10.2) mg/dL AST 109 H (17-59) U/L ALT 96 H (4-49) U/L Alkaline Phosphatase 178 H (38-126) U/L C-Reactive Protein 1.9 H (<1.0) mg/dL Procalcitonin 0.11 H (0.02-0.09) ng/mL PTH Intact (14.0-72.0) pg/mL 12/19/22 12/19/22 12/19/22 Range/Units 07:07 08:10 12:15 Plt Count 132 L (150-450) k/uL Neutrophils # 8.0 H (1.3-7.7) k/uL Lymphocytes # 0.7 L (1.0-4.8) k/uL BUN (9-20) mg/dL Glucose (74-99) mg/dL POC Glucose (mg/dL) 138 H 141 H (70-110) mg/dL Hemoglobin A1c (<=6.0) % Calcium (8.4-10.2) mg/dL AST (17-59) U/L ALT (4-49) U/L Alkaline Phosphatase (38-126) U/L C-Reactive Protein (<1.0) mg/dL Procalcitonin (0.02-0.09) ng/mL PTH Intact (14.0-72.0) pg/mL
[2022-12-19 17:25] LABS: Glucose,Whole Blood 192 mg/dL (70-110)
[2022-12-19] MEDS ORDERED: ZOLEDRONIC ACID 4 MG in SODIUM CHLORIDE 0.9% 100 ML IV ONE (19:00)
--- NOTE | 2022-12-19 19:31 | P.PN ---
Subjective Progress Note Date: 12/19/22 Principal diagnosis: ?Cholecystitis , Pneumonia Patient is a 67-year-old male with a past medical history significant for hypertension hyperlipidemia GA COPD coronary artery disease and DVT presenting to the [facility] for evaluation of diffuse pain patient compl aining of pain to the left shoulder area as well as to the upper abdominal area , Patient did have a gallbladder ultrasound that shows mild thickening but no gallstones CT angiogram of the chest did shows a right lower lobe infiltrate concerning for possible pneumonia. On today's evaluation that is 12/19/2022, the patient denies having any fever or any chills still complaining of pain to the rib cage area the patient also have a cough moderate intensity is bringing up some sputum no hemoptysis some nausea but no vomiting and no diarrhea Objective - Vital Signs Vital signs: Vital Signs Temp 97.4 F L 12/19/22 08:13 Pulse 74 12/19/22 08:13 Resp 19 12/19/22 08:13 BP 178/88 12/19/22 08:13 Pulse Ox 92 L 12/19/22 08:13 FiO2 Intake & Output 12/18/22 12/19/22 12/19/22 18:59 06:59 18:59 Intake Total 900 Output Total 275 400 Balance 625 -400 Intake: Intake, IV Titration 900 Amount Sodium Chloride 0.9% 1, 900 000 ml @ 75 mls/hr IV . [id number] [facility] Rx#:[id number] Output: Urine 275 400 Other: Voiding Method Urinal Urinal Urinal # Voids 2 1 - Exam GENERAL DESCRIPTION: Elderly male lying in bed in no distress RESPIRATORY SYSTEM: Unlabored breathing , decreased breath sounds at bases HEART: S1 S2 regular rate and rhythm ,no loud murmurs ABDOMEN: Soft , no tenderness EXTREMITIES: No edema feet - Labs CBC & Chem 7: 12/19/22 07:07 12/19/22 07:07 Labs: Abnormal Lab Results - Last 24 Hours (Table) 12/18/22 12/18/22 12/18/22 Range/Units 11:38 12:09 17:10 Plt Count (150-450) k/uL Neutrophils # (1.3-7.7) k/uL Lymphocytes # (1.0-4.8) k/uL BUN (9-20) mg/dL Glucose (74-99) mg/dL POC Glucose (mg/dL) 151 H 195 H (70-110) mg/dL Calcium (8.4-10.2) mg/dL AST (17-59) U/L ALT (4-49) U/L Alkaline Phosphatase (38-126) U/L C-Reactive Protein (<1.0) mg/dL PTH Intact 5.4 L (14.0-72.0) pg/mL 12/18/22 12/19/22 12/19/22 Range/Units 20:45 07:07 07:07 Plt Count 132 L (150-450) k/uL Neutrophils # 8.0 H (1.3-7.7) k/uL Lymphocytes # 0.7 L (1.0-4.8) k/uL BUN 28 H (9-20) mg/dL Glucose 135 H (74-99) mg/dL POC Glucose (mg/dL) 171 H (70-110) mg/dL Calcium 12.8 H (8.4-10.2) mg/dL AST 109 H (17-59) U/L ALT 96 H (4-49) U/L Alkaline Phosphatase 178 H (38-126) U/L C-Reactive Protein 1.9 H (<1.0) mg/dL PTH Intact (14.0-72.0) pg/mL 12/19/22 Range/Units 08:10 Plt Count (150-450) k/uL Neutrophils # (1.3-7.7) k/uL Lymphocytes # (1.0-4.8) k/uL BUN (9-20) mg/dL Glucose (74-99) mg/dL POC Glucose (mg/dL) 138 H (70-110) mg/dL Calcium (8.4-10.2) mg/dL AST (17-59) U/L ALT (4-49) U/L Alkaline Phosphatase (38-126) U/L C-Reactive Protein (<1.0) mg/dL PTH Intact (14.0-72.0) pg/mL Assessment and Plan (1) Pneumonia Current Visit: Yes Status: Acute Code(s): J18.9 - PNEUMONIA, UNSPECIFIED ORGANISM SNOMED Code(s): 795738751 Plan: 1patient was in the hospital generalized body aches has been complaining of pain mostly to the bilateral rib cage area and to the posterior shoulder patient did have mildly elevated liver enzymes however ultrasound did show some mild wall thickness but no gallstones or any pericholecystic fluid patient was mildly tender in the right upper quadrant area underlying cholecystitis less likely but not entirely excluded 2-patient did have some shortness of breath and a cough and did have a consolidation seen on the CT angiogram of the chest concerning for possible pneumonia 3-we will obtain sputum for Gram stain and culture, CRP procalcitonin mildly elevated 4-Continue Zosyn while waiting for the work-up to be completed Dictation was produced using [employer] dictation software. please excuse any grammatical, word or spelling errors. Time with Patient: Less than 30
--- NOTE | 2022-12-19 19:56 | PN ---
PROGRESS NOTE DATE OF SERVICE: 12/19/2022 SUBJECTIVE: This is a 67-year-old gentleman, who was admitted with abdominal pain, was found to have possible cholelithiasis and cholecystitis. The patient has also had hypercalcemia. The patient also had possible cirrhosis of liver. Multiple consultants are following the patient closely. Cultures are negative so far. PAST MEDICAL HISTORY: Reviewed. REVIEW OF SYSTEMS: A 14-point review is negative except as mentioned earlier. CURRENT MEDICATIONS: Reviewed include albuterol. Doses and rest of medications reviewed. PHYSICAL EXAMINATION: VITAL SIGNS: Pulse is 74, blood pressure is 170/88, respirations 19. HEENT: Conjunctivae normal. NECK: No JVD. CARDIOVASCULAR: S1, S2. RESPIRATIONS: Breath sounds diminished at the bases. ABDOMEN: Soft. Minimal diffuse tenderness. No guarding. No rigidity. No mass palpable. NERVOUS SYSTEM: Nonfocal. LABORATORY DATA: Reviewed. Procalcitonin is 0.11. ASSESSMENT: 1. Acute upper abdominal pain, possibly acute cholelithiasis and cholecystitis. 2. Possible cirrhosis of liver secondary to EtOH. 3. Mild thrombocytopenia. 4. Elevated D-dimer without any evidence of pulmonary embolism. 5. Hypercalcemia. 6. Pulmonary nodules, stable. 7. Chronic obstructive pulmonary disease. 8. History of deep venous thrombosis. 9. Multiple complex medical issues. RECOMMENDATIONS AND DISCUSSION: Recommend to continue current management and continue symptomatic treatment. Otherwise, at this time I recommend repeat calcium. Dr. Thomas has been consulted and I would also recommend consult Dr. Ruiz for hypercalcemia. The patient has also been seen by Neurosurgery and not any immediate surgery at this time, but I would recommend repeat labs tomorrow. Continue with symptomatic treatment. Further recommendations to follow. MMODL / IJN: [id number] /
[2022-12-19 20:54] LABS: Glucose,Whole Blood 166 mg/dL (70-110)
[2022-12-19] MEDS: ATORVASTATIN 80 MG TAB PO SCH (21:46)
[2022-12-19] MEDS: amLODIPine 10 MG TAB PO SCH (21:46)
[2022-12-19] MEDS: CLOPIDOGREL 75 MG TAB PO SCH (21:47)
[2022-12-20 00:33] LABS: Glucose,Whole Blood 125 mg/dL (70-110)
[2022-12-20] MEDS: methylPREDNISolone SOD SUCCI 125 MG/2 ML VIAL IV SCH ×3 (06:07→18:14)
[2022-12-20] MEDS: HYDROmorphone 0.5 MG/0.5 ML SYRINGE IVP PRN (06:26)
[2022-12-20 07:04] LABS: Glucose,Whole Blood 114 mg/dL (70-110)
[2022-12-20] MEDS: PIPERACILLIN-TAZOBACTAM 3.375 GM in SODIUM CHLORIDE 0.9% 100 ML IVPB SCH ×2 (07:13→15:59)
[2022-12-20] MEDS: INSULIN ASPART (NovoLOG) 100 UNIT/ML VIAL SQ SCH ×4 (07:39→20:26)
[2022-12-20] MEDS: SYMBICORT 160-4.5 MCG INHALER INHALATION SCH ×2 (08:35→19:29)
[2022-12-20] MEDS: IPRATROPIUM-ALBUTEROL 3 ML NEB INHALATION SCH (08:41)
[2022-12-20] MEDS: PANTOPRAZOLE 40 MG/10 ML VIAL IV SCH ×2 (08:58→20:24)
[2022-12-20] MEDS: MORPHINE SULFATE 4 MG/ML SYRINGE IVP PRN ×3 (09:38→20:16)
[2022-12-20] MEDS: LOSARTAN 50 MG TAB PO SCH (10:38)
[2022-12-20] MEDS: EZETIMIBE 10 MG TAB PO SCH (10:39)
[2022-12-20] MEDS: DULoxetine HCL 30 MG CAPSULE.DR PO SCH ×2 (10:39→20:16)
[2022-12-20] MEDS: GABAPENTIN 300 MG CAP PO SCH ×2 (10:39→20:15)
[2022-12-20] MEDS: THIAMINE 100 MG TAB PO SCH (10:39)
[2022-12-20] MEDS: SENNOSIDES-DOCUSATE SODIUM 1 EACH TAB PO SCH ×2 (10:39→20:15)
[2022-12-20] MEDS: BACLOFEN 10 MG TAB PO SCH ×2 (10:40→20:15)
[2022-12-20] MEDS: ASPIRIN 81 MG PO SCH (10:40)
[2022-12-20] MEDS: METOPROLOL TARTRATE 25 MG TAB PO SCH ×2 (10:41→20:15)
[2022-12-20] MEDS: SODIUM CHLORIDE 0.9% 1,000 ML IV SCH ×2 (10:41→15:59)
[2022-12-20] MEDS: RIVAROXABAN 2.5 MG TABLET PO SCH ×2 (10:41→20:15)
--- NOTE | 2022-12-20 11:53 | P.PN ---
Subjective Progress Note Date: 12/20/22 CHIEF COMPLAINT: Abdominal pain HISTORY OF PRESENT ILLNESS: Patient complains of both right upper quadrant and left upper quadrant abdominal pain. He does report pain goes into his back. He denies any nausea or vomiting. Patient scheduled for bone scan today due to hypercalcemia. Afebrile PHYSICAL EXAM: VITAL SIGNS: Reviewed GENERAL: Well-developed in no acute distress. HEENT: No sclera icterus. Extraocular movements grossly intact. Moist buccal mucosa. Head is atraumatic, normocephalic. Hears conversational speech. No nasal drainage. NECK: Supple without lymphadenopathy. CHEST: Non-labored respirations and equal bilateral excursions. CARDIOVASCULAR: Palpable 2+ radial pulses. ABDOMEN: Soft. Mildly distended. Tenderness to palpation of the right upper quadrant and left upper quadrant MUSCULOSKELETAL: No clubbing or cyanosis. NEUROLOGIC: No focal or lateralizing signs. Cranial nerves II through XII grossly intact. PSYCH: Appropriate affect. Alert and oriented to person, place and time. SKIN: Well perfused. Good skin turgor. ASSESSMENT: 1. Bilateral upper abdominal pain 2. Gallstones 3. Mildly elevated LFTs 4. Hypercalcemia 5. COPD exacerbation PLAN: - LFTs are elevated in the presence of gallstones. Recommend conservative management due to exacerbation of COPD. - Low fat diet advised. Physician Speech And Drama Teacher note has been reviewed by physician. Signing provider agrees with the documented findings, assessment, and plan of care. Objective - Vital Signs Vital signs: Vital Signs Temp 97.8 F 12/20/22 07:42 Pulse 76 12/20/22 07:42 Resp 20 12/20/22 07:42 BP 183/92 12/20/22 07:42 Pulse Ox 92 L 12/20/22 08:38 FiO2 Intake & Output 12/19/22 12/20/22 12/20/22 18:59 06:59 18:59 Intake Total 1000 Output Total 525 Balance 1000 -525 Intake: Intake, IV Titration 1000 Amount Piperacillin-Tazobactam 3 100 .375 gm In Sodium Chloride 0.9% 100 ml @ 25 mls/hr IVPB Q8HR [facility] Rx# :[id number] Sodium Chloride 0.9% 1, 900 000 ml @ 75 mls/hr IV . [id number] [facility] Rx#:[id number] Output: Urine 525 Other: Voiding Method Urinal Urinal Urinal # Voids 1 3 - Labs CBC & Chem 7: 12/19/22 07:07 12/19/22 07:07 Labs: Abnormal Lab Results - Last 24 Hours (Table) 12/19/22 12/19/22 12/19/22 Range/Units 07:07 07:07 12:15 POC Glucose (mg/dL) 141 H (70-110) mg/dL Hemoglobin A1c 7.0 H (<=6.0) % Procalcitonin 0.11 H (0.02-0.09) ng/mL 12/19/22 12/19/22 12/20/22 Range/Units 17:24 20:47 00:31 POC Glucose (mg/dL) 192 H 166 H 125 H (70-110) mg/dL Hemoglobin A1c (<=6.0) % Procalcitonin (0.02-0.09) ng/mL 12/20/22 Range/Units 07:01 POC Glucose (mg/dL) 114 H (70-110) mg/dL Hemoglobin A1c (<=6.0) % Procalcitonin (0.02-0.09) ng/mL Microbiology - Last 24 Hours (Table) 12/18/22 12:08 Blood Culture - Preliminary Blood
[2022-12-20 12:00] LABS: Glucose,Whole Blood 113 mg/dL (70-110)
[2022-12-20] MEDS: HYDROcodone/APAP 10-325MG 1 EACH TAB PO PRN ×2 (12:08→18:17)
[2022-12-20 12:15] LABS: ALT 103 U/L (10-49); AST 125 U/L (14-35); Albumin 3.7 d/dL (3.8-4.9); Albumin/Globulin Ratio 1.28 Ratio (1.60-3.17); Alkaline Phosphatase 176 U/L (41-126); BUN/Creat Ratio 26.17 Ratio (12.00-20.00); Blood Urea Nitrogen 31.4 mg/dL (9.0-27.0); Calcium 12.6 mg/dL (8.7-10.3); Carbon Dioxide 20.4 mmol/L (21.6-31.8); Chloride 108 mmol/L (96-109); Globulin 2.9 d/dL (1.6-3.3); Glucose 115 mg/dL (70-110); Potassium 4.1 mmol/L (3.5-5.5); Sodium 143 mmol/L (135-145); Total Bilirubin 0.3 mg/dL (0.3-1.2); Total Protein 6.6 d/dL (6.2-8.2)
[2022-12-20 12:21] LABS: Basophils # (A) 0.02 X 10*3/uL (0.00-0.10); Basophils % (A) 0.2 %; Eosinophils # (A) 0 X 10*3/uL (0.04-0.35); Eosinophils % (A) 0 %; HCT 46.9 % (39.6-50.0); HGB 15.1 d/dL (12.0-15.0); Lymphocytes # (A) 0.71 X 10*3/uL (0.90-5.00); Lymphocytes % (A) 6.6 %; MCH 31.7 pg (27.0-32.0); MCHC 32.2 d/dL (32.0-37.0); MCV 98.3 FL (80.0-97.0); Monocytes # (A) 0.49 X 10*3/uL (0.20-1.00); Monocytes % (A) 4.5 %; NRBC Per 100 WBC 0 X 10*3/uL (0.00-0.01); Neutrophils # (A) 9.46 X 10*3/uL (1.80-7.70); Neutrophils % (A) 87.3 %; Platelet Count 132 X 10*3/uL (140-440); RBC 4.77 X 10*6/uL (4.40-5.60); RBC Morphology Normal (Normal); RDW 13.2 % (11.5-14.5); WBC 10.83 X 10*3/uL (4.50-10.00)
--- NOTE | 2022-12-20 12:29 | P.PN ---
Subjective Progress Note Date: 12/20/22 67-year-old male patient was transferred to us from [facility] for diffuse pain. The pain is mainly across his chest and upper abdomen and across the rib cage addition to chronic back pain. Is known to have chronic dyspnea and the patient is noted COPD and a left lung pulmonary nodule that has been followed up on outpatient basis. Initially went to [facility] and his calcium level was noted to be elevated. Based on his ongoing symptoms, he was referred to us. His current calcium level is at 13. He did not have any previous issues with hypercalcemia. Is known to have COPD, pulmonary nodule, coronary artery disease and extensive peripheral vascular disease and the patie nt has undergone previous vascular bypass surgery and stenting to the lower extremities. He is also known to have previous history of DVT. Maintain on long-term anticoagulants. At the same time, the patient has hypertension, hyperlipidemia, obesity, chronic back pain and a recent MRI from August 2022 showed wedging of the L2 spine in the order of 15% without any acute fractures. There is also multilevel spondylitic changes and mildly prominent narrowing due to facet arthropathy and disc space narrowing at the level of L4-L5 and old compression fracture the level of L2. Mild edema in the anterior L3 vertebral and posterior L5 vertebral and there is no evidence of any significant lumbar st enosis. The computed tomography scan of the abdomen and pelvis that was done in 09/22/2022 showed moderate to severe narrowing throughout the bilateral external iliac arteries and a stent in the superficial femoral artery was patent on the left. There was cholelithiasis and moderate atherosclerotic changes throughout the abdominal aorta and colonic diverticulosis. There are atelectatic changes in the right posterior base. The abdomen is gravid 7.6, hemoglobin is 15.4 and platelet count is 135. LFTs are abnormal with a AST of 105, ALT 121 and alkaline phosphatase of 193. Bilirubin is at 0.5. Covid 19 testing is negative. Creatinine is at 1.1. On 12/19/2022, the patient is stable without any change in his condition. On 12/19/2022, the patient is stable without any changes condition. Calcium level today is at 12.8. Awaiting further workup. Remains on IV fluids and Zosyn. Remains on anticoagulation with is xarelto The patient is seen today 12/20/2022 in follow-up on the regular medical floor. He is awake and alert in no acute distress. Resting fairly comfortably in bed. Still having some bilateral chest wall discomfort and rib pain. A culture revealing no growth to date. Sodium 143. Potassium 4.1. Bicarb 20. BUN 31. Creatinine 1.2. Glucose 115. AST 125. ALT 103. Pro-calcitonin 0.11. Continue bronchodilators and steroids. Antibiotics in the form of Zosyn. Anticoagulated with Xarelto. Receiving normal saline at 75 ML's per hour. Objective - Vital Signs Vital signs: Vital Signs Temp 97.8 F 12/20/22 07:42 Pulse 76 12/20/22 07:42 Resp 20 12/20/22 07:42 BP 183/92 12/20/22 07:42 Pulse Ox 92 L 12/20/22 08:38 FiO2 Intake & Output 12/19/22 12/20/22 12/20/22 18:59 06:59 18:59 Intake Total 1000 Output Total 525 Balance 1000 -525 Intake: Intake, IV Titration 1000 Amount Piperacillin-Tazobactam 3 100 .375 gm In Sodium Chloride 0.9% 100 ml @ 25 mls/hr IVPB Q8HR [facility] Rx# :[id number] Sodium Chloride 0.9% 1, 900 000 ml @ 75 mls/hr IV . [id number] [facility] Rx#:[id number] Output: Urine 525 Other: Voiding Method Urinal Urinal Urinal # Voids 1 3 - Exam GENERAL EXAM: Alert, pleasant 67-year-old male, on 4 liters nasal cannula, comfortable in no apparent distress. HEAD: Normocephalic. EYES: Normal reaction of pupils, equal size. NOSE: Clear with pink turbinates. THROAT: No erythema or exudates. NECK: No masses, no JVD. CHEST: No chest wall deformity. LUNGS: Equal air entry with no crackles, wheeze, rhonchi or dullness. CVS: S1 and S2 normal with no audible murmur, regular rhythm. ABDOMEN: No hepatosplenomegaly, normal bowel sounds, no guarding or rigidity. SPINE: No scoliosis or deformity SKIN: No rashes CENTRAL NERVOUS SYSTEM: No focal deficits, tone is normal in all 4 extremities. EXTREMITIES: There is no peripheral edema. No clubbing, no cyanosis. Peripheral pulses are intact. - Labs CBC & Chem 7: 12/19/22 07:07 12/20/22 06:33 Labs: Abnormal Lab Results - Last 24 Hours (Table) 12/19/22 12/19/22 12/19/22 Range/Units 07:07 07:07 17:24 Carbon Dioxide (21.6-31.8) mmol/L Anion Gap (4.00-12.00) mmol/L BUN (9.0-27.0) mg/dL BUN/Creatinine Ratio (12.00-20.00) Ratio Glucose (70-110) mg/dL POC Glucose (mg/dL) 192 H (70-110) mg/dL Hemoglobin A1c 7.0 H (<=6.0) % Calcium (8.7-10.3) mg/dL AST (14-35) U/L ALT (10-49) U/L Alkaline Phosphatase (41-126) U/L Albumin (3.8-4.9) d/dL Albumin/Globulin Ratio (1.60-3.17) Ratio Procalcitonin 0.11 H (0.02-0.09) ng/mL 12/19/22 12/20/22 12/20/22 Range/Units 20:47 00:31 06:33 Carbon Dioxide 20.4 L (21.6-31.8) mmol/L Anion Gap 14.60 H (4.00-12.00) mmol/L BUN 31.4 H (9.0-27.0) mg/dL BUN/Creatinine Ratio 26.17 H (12.00-20.00) Ratio Glucose 115 H (70-110) mg/dL POC Glucose (mg/dL) 166 H 125 H (70-110) mg/dL Hemoglobin A1c (<=6.0) % Calcium 12.6 H (8.7-10.3) mg/dL AST 125 H (14-35) U/L ALT 103 H (10-49) U/L Alkaline Phosphatase 176 H (41-126) U/L Albumin 3.7 L (3.8-4.9) d/dL Albumin/Globulin Ratio 1.28 L (1.60-3.17) Ratio Procalcitonin (0.02-0.09) ng/mL 12/20/22 12/20/22 Range/Units 07:01 11:59 Carbon Dioxide (21.6-31.8) mmol/L Anion Gap (4.00-12.00) mmol/L BUN (9.0-27.0) mg/dL BUN/Creatinine Ratio (12.00-20.00) Ratio Glucose (70-110) mg/dL POC Glucose (mg/dL) 114 H 113 H (70-110) mg/dL Hemoglobin A1c (<=6.0) % Calcium (8.7-10.3) mg/dL AST (14-35) U/L ALT (10-49) U/L Alkaline Phosphatase (41-126) U/L Albumin (3.8-4.9) d/dL Albumin/Globulin Ratio (1.60-3.17) Ratio Procalcitonin (0.02-0.09) ng/mL Microbiology - Last 24 Hours (Table) 12/18/22 12:08 Blood Culture - Preliminary Blood Assessment and Plan Assessment: Diffuse skeletal pain involving the chest wall and back. Is currently under investigation. The patient was identified to have a recent hypercalcemia. Malignancy is obviously concerned. Calcium level today is at 12.8 Hypercalcemia, rule out hyperparathyroidism. Rule out paraneoplastic. Rule out multiple myeloma. Calcium level is down to 12.6. Intact PTH low at 5.4. COPD Left lower lobe pulmonary nodule measuring 1.5 cm, will need an outpatient PET CT and further investigation. For now the pulmonary nodule is stable Coronary artery disease CVA Vascular disease with a previous fem-pop bypass surgery Bilateral carotid endarterectomies Coronary artery disease and coronary stenting Previous history of CVA Previous history of DVT of the left lower extremity Previous history of Covid 19 infection back in February 2021 Hypertension Hyperlipidemia Abnormal LFTs with cholelithiasis without evidence of cholecystitis History of nephrolithiasis Plan: The patient was seen and evaluated Labs and medications reviewed Bone scan pending PSA, CEA and CA 199 pending Oncology consult Continue the current treatment plan We will continue to follow I have personally seen and examined the patient, performed the documentation and the assessment and plan as written. Number of minutes spent on the visit: 10.
--- NOTE | 2022-12-20 13:20 | P.NPCON ---
History of Present Illness - History of Present Illness Patient is a 67-year-old male with history of COPD, peripheral vascular disease. He is admitted to the hospital with complaints of abdominal pain. Ultrasound of the gallbladder was unremarkable. No history of fever chills nausea vomiting. Patient did report decreased oral intake Calcium noted to be 13.0 on admission. Previous calcium 9.9 on 10/18/2022. Next Patient admitted to occasional use of Tums. He states he is been drinking a gallon of milk over a week Patient has not been bed bound No previous history of malignancy Chest CT showed left lower lobe pulmonary nodule about 1.5 cm Review of Systems As per HPI Past Medical History Past Medical History: Coronary Artery Disease (CAD), COPD, CVA/TIA, Deep Vein Thrombosis (DVT), Hyperlipidemia, Hypertension, Myocardial Infarction ([place]), Osteoarthritis (OA), Vascular Disorder Additional Past Medical History / Comment(s): PAD, dvt left leg, COVID 02/2021, TIA-no residual effects, gallstones, kidney stones Last Myocardial Infarction Date:: 04/20/20 History of Any Multi-Drug Resistant Organisms: None Reported Past Surgical History: Heart Catheterization With Stent, Hernia Repair, Joint Replacement, Orthopedic Surgery Additional Past Surgical History / Comment(s): abd. aortogram 09/04/20, L Fem- pop bypass with stent,x2 christy carotid endarterectomy, christy knee arthroscopy, rt hip replacement, one cardiac stent, surgery in October 2021 L lower extrem runoff with ballon angioplasty. Past Anesthesia/Blood Transfusion Reactions: No Reported Reaction Date of Last Stent Placement:: 08/2017 Past Psychological History: No Psychological Hx Reported Smoking Status: Former smoker Past Alcohol Use History: Daily Additional Past Alcohol Use History / Comment(s): quit smoking 2008, smoked 30- 40 yrs, 1 PPD Past Drug Use History: None Reported - Past Family History Father Family Medical History: Cancer Additional Family Medical History / Comment(s): lung Brother(s) Family Medical History: Cancer Son(s) Family Medical History: Cancer Medications and Allergies Home Medications Medication Instructions Recorded Confirmed Type Gabapentin [Neurontin] 600 mg PO BID 04/21/15 12/17/22 History HYDROcodone/APAP 10-325MG [[place] 1 tab PO QID PRN 04/21/15 12/17/22 History 10-325] EPINEPHrine (Auto Inject) [Epipen] 0.3 mg IM ONCE PRN 05/25/19 12/17/22 History Rivaroxaban [Xarelto] 2.5 mg PO BID 04/21/20 12/17/22 History Biotin 5 mg PO HS 09/01/20 12/17/22 History Ezetimibe [Zetia] 10 mg PO DAILY 09/01/20 12/17/22 History Metoprolol Tartrate [Lopressor] 25 mg PO BID 09/01/20 12/17/22 History Albuterol Sulfate [Ventolin HFA] 2 puff INHALATION RT-BID PRN 02/03/21 12/17/22 History Budesonide/Formoterol Fumarate 2 puff INHALATION RT-BID 02/03/21 12/17/22 History [Symbicort 160-4.5 Mcg Inhaler] Thiamine [Vitamin B-1] 100 mg PO DAILY #30 tab 02/05/21 12/17/22 Rx Baclofen [Lioresal] 20 mg PO BID 10/20/21 12/17/22 History Clopidogrel [Plavix] 75 mg PO HS 10/20/21 12/17/22 History Rosuvastatin Calcium [Crestor] 40 mg PO HS 10/20/21 12/17/22 History Aspirin [Adult Low Dose Aspirin EC] 81 mg PO DAILY 10/14/22 12/17/22 History DULoxetine HCL [Cymbalta] 30 mg PO BID 12/17/22 12/17/22 History Losartan [Cozaar] 50 mg PO DAILY 12/17/22 12/17/22 History Nitroglycerin Sl Tabs [Nitrostat] 0.4 mg SL Q5M PRN 12/17/22 12/17/22 History Sennosides-Docusate Sodium 2 tab PO BID 12/17/22 12/17/22 History [Senokot-S] amLODIPine [Norvasc] 10 mg PO HS 12/17/22 12/17/22 History predniSONE See Taper PO DAILY 12/17/22 12/17/22 History Allergies Allergy/AdvReac Type Severity Reaction Status Date / Time venom-honey bee Allergy Anaphylaxis Verified 12/17/22 22:28 [bee venom (honey bee)] Physical Exam Vitals: Vital Signs Temp Pulse Resp BP Pulse Ox 12/20/22 13:04 97.4 F L 67 22 156/78 91 L 12/20/22 08:38 92 L 12/20/22 07:42 97.8 F 76 20 183/92 91 L 12/20/22 02:00 97.5 F L 67 148/77 89 L 12/19/22 21:37 69 155/70 12/19/22 19:54 97.4 F L 75 15 113/68 95 12/19/22 13:55 97.7 F 72 18 127/73 93 L Intake and Output 12/19/22 12/20/22 12/20/22 22:59 06:59 14:59 Intake Total 1000 Output Total 525 Balance 1000 -525 Intake: Intake, IV Titration 1000 Amount Piperacillin-Tazobactam 3 100 .375 gm In Sodium Chloride 0.9% 100 ml @ 25 mls/hr IVPB Q8HR [facility] Rx# :[id number] Sodium Chloride 0.9% 1, 900 000 ml @ 75 mls/hr IV . 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 Hypercalcemia rule out underlying malignancy. Obtain basic workup including PTH levels and 1 25-hydroxy vitamin D and 25-hydroxy vitamin D. Check urine and serum immunofixation 2. Left lower lobe pulmonary nodule 3. Abdominal pain being followed by general surgery. Gallstones noted but no significant obstruction. Conservative management per surgery. Plan: Obtain initial workup for hypercalcemia Continue with IV fluids Follow-up on results of bone scan IV pamidronate 1 Repeat labs in a.m. Thank you for the consultation. We will continue to follow the patient with you during his hospitalization.
[2022-12-20] MEDS ORDERED: CALCITONIN INJ 200 UNIT/ML (MDV) VIAL SQ ONE (15:00)
--- NOTE | 2022-12-20 15:26 | P.CONS ---
History of Present Illness - Reason for Consult Consult date: 12/20/22 hypercalcemia Requesting physician: Stephanie Thomas - Chief Complaint abdominal pain - History of Present Illness Patient is a 67-year-old male with multiple comorbidities. We will consult it for hyper Tonja Bridget. Patient was a transfer from [facility] due to el evated calcium. patient presented to the ER for upper abdominal pain that radiated to his back. he also reports constipation and last BM was 4 days ago. On arrival to the ER calcium was noted at 13.0. S/p 1 dose zometa, calcium 12.6 today. WBC and hemoglobin stable. Platelets 132,000. Chest x-ray revealed reticular increased density throughout the mid to lower lungs bilaterally. CTA chest revealed no evidence of PE. 1.5 cm pulmonary nodule in the left lower lobe that is unchanged. Mild emphysematous changes present in the upper lobes. Consolidation in the right lower lobe posteriorly. Mild cardiomegaly. Gallbladder ultrasound revealed no distention. No gallstones identified. All thicknesses and upper limits of normal measuring 3 mm. No pericholecystic fluid seen. Sonographic Louie sign was negative. LFTs elevated. Lipase normal. Bilirubin normal. Per ER note, CT AP was obtained at [facility] revealing cirrhotic morphology of the liver. Cholelithiasis. No signs of cholecystitis. Emphysematous changes of the lungs. Pt denies night sweats and unintentional weight loss. Hx Etoh. Pt recently quit drinking, approx 7 weeks ago. Father had history of pancreatic cancer. Pt denies personal history of cancer. Review of Systems 10 point ROS is negative except as stated in the HPI Past Medical History Past Medical History: Coronary Artery Disease (CAD), COPD, CVA/TIA, Deep Vein Thrombosis (DVT), Hyperlipidemia, Hypertension, Myocardial Infarction (NV), Osteoarthritis (OA), Vascular Disorder Additional Past Medical History / Comment(s): PAD, dvt left leg, COVID 02/2021, T IA-no residual effects, gallstones, kidney stones Last Myocardial Infarction Date:: 04/20/20 History of Any Multi-Drug Resistant Organisms: None Reported Past Surgical History: Heart Catheterization With Stent, Hernia Repair, Joint Replacement, Orthopedic Surgery Additional Past Surgical History / Comment(s): abd. aortogram 09/04/20, L Fem- pop bypass with stent,x2 christy carotid endarterectomy, christy knee arthroscopy, rt hip replacement, one cardiac stent, surgery in October 2021 L lower extrem runoff with ballon angioplasty. Past Anesthesia/Blood Transfusion Reactions: No Reported Reaction Date of Last Stent Placement:: 08/2017 Past Psychological History: No Psychological Hx Reported Smoking Status: Former smoker Past Alcohol Use History: Daily Additional Past Alcohol Use History / Comment(s): quit smoking 2008, smoked 30- 40 yrs, 1 PPD Past Drug Use History: None Reported - Past Family History Father Family Medical History: Cancer Additional Family Medical History / Comment(s): lung Brother(s) Family Medical History: Cancer Son(s) Family Medical History: Cancer Medications and Allergies Home Medications Medication Instructions Recorded Confirmed Type Gabapentin [Neurontin] 600 mg PO BID 04/21/15 12/17/22 History HYDROcodone/APAP 10-325MG [[place] 1 tab PO QID PRN 04/21/15 12/17/22 History 10-325] EPINEPHrine (Auto Inject) [Epipen] 0.3 mg IM ONCE PRN 05/25/19 12/17/22 History Rivaroxaban [Xarelto] 2.5 mg PO BID 04/21/20 12/17/22 History Biotin 5 mg PO HS 09/01/20 12/17/22 History Ezetimibe [Zetia] 10 mg PO DAILY 09/01/20 12/17/22 History Metoprolol Tartrate [Lopressor] 25 mg PO BID 09/01/20 12/17/22 History Albuterol Sulfate [Ventolin HFA] 2 puff INHALATION RT-BID PRN 02/03/21 12/17/22 History Budesonide/Formoterol Fumarate 2 puff INHALATION RT-BID 02/03/21 12/17/22 History [Symbicort 160-4.5 Mcg Inhaler] Thiamine [Vitamin B-1] 100 mg PO DAILY #30 tab 02/05/21 12/17/22 Rx Baclofen [Lioresal] 20 mg PO BID 10/20/21 12/17/22 History Clopidogrel [Plavix] 75 mg PO HS 10/20/21 12/17/22 History Rosuvastatin Calcium [Crestor] 40 mg PO HS 10/20/21 12/17/22 History Aspirin [Adult Low Dose Aspirin EC] 81 mg PO DAILY 10/14/22 12/17/22 History DULoxetine HCL [Cymbalta] 30 mg PO BID 12/17/22 12/17/22 History Losartan [Cozaar] 50 mg PO DAILY 12/17/22 12/17/22 History Nitroglycerin Sl Tabs [Nitrostat] 0.4 mg SL Q5M PRN 12/17/22 12/17/22 History Sennosides-Docusate Sodium 2 tab PO BID 12/17/22 12/17/22 History [Senokot-S] amLODIPine [Norvasc] 10 mg PO HS 12/17/22 12/17/22 History predniSONE See Taper PO DAILY 12/17/22 12/17/22 History Allergies Allergy/AdvReac Type Severity Reaction Status Date / Time venom-honey bee Allergy Anaphylaxis Verified 12/17/22 22:28 [bee venom (honey bee)] Physical Exam Vitals: Vital Signs Temp Pulse Resp BP Pulse Ox 12/20/22 13:04 97.4 F L 67 22 156/78 91 L 12/20/22 08:38 92 L 12/20/22 07:42 97.8 F 76 20 183/92 91 L 12/20/22 02:00 97.5 F L 67 148/77 89 L 12/19/22 21:37 69 155/70 12/19/22 19:54 97.4 F L 75 15 113/68 95 Intake and Output 12/19/22 12/20/22 12/20/22 22:59 06:59 14:59 Intake Total 1000 Output Total 525 Balance 1000 -525 Intake: Intake, IV Titration 1000 Amount Piperacillin-Tazobactam 3 100 .375 gm In Sodium Chloride 0.9% 100 ml @ 25 mls/hr IVPB Q8HR [facility] Rx# :[id number] Sodium Chloride 0.9% 1, 900 000 ml @ 75 mls/hr IV . [id number] [facility] Rx#:[id number] Output: Urine 525 Other: Voiding Method Urinal Urinal # Voids 3 - Constitutional General appearance: no acute distress, obese - EENT Eyes: anicteric sclerae, EOMI ENT: hearing grossly normal - Respiratory breathing labored Respiratory: bilateral: diminished (weak inspiratory effort ) - Cardiovascular Rhythm: regular Heart sounds: normal: S1, S2 Abnormal Heart Sounds: no systolic murmur, no diastolic murmur, no rub, no S3 Gallop, no S4 Gallop, no click, no other - Gastrointestinal General gastrointestinal: distended, no tenderness - Integumentary Integumentary: no cyanotic, no jaundiced - Musculoskeletal Musculoskeletal: generalized weakness - Psychiatric Psychiatric: A&O x's 3, appropriate affect, intact judgment & insight Results CBC & Chem 7: 12/20/22 06:33 12/20/22 06:33 Labs: Abnormal Lab Results - Last 24 Hours (Table) 12/17/22 12/19/22 12/19/22 Range/Units 21:55 17:24 20:47 WBC (4.50-10.00) X 10*3/uL Hgb (12.0-15.0) d/dL MCV (80.0-97.0) FL Plt Count (140-440) X 10*3/uL Neutrophils # (1.80-7.70) X 10*3/uL Lymphocytes # (0.90-5.00) X 10*3/uL Eosinophils # (0.04-0.35) X 10*3/uL Carbon Dioxide (21.6-31.8) mmol/L Anion Gap (4.00-12.00) mmol/L BUN (9.0-27.0) mg/dL BUN/Creatinine Ratio (12.00-20.00) Ratio Glucose (70-110) mg/dL POC Glucose (mg/dL) 192 H 166 H (70-110) mg/dL Calcium (8.7-10.3) mg/dL AST (14-35) U/L ALT (10-49) U/L Alkaline Phosphatase (41-126) U/L Albumin (3.8-4.9) d/dL Albumin/Globulin Ratio (1.60-3.17) Ratio Vitamin D 25-Hydroxy 11.4 L (30.0-100.0) ng/mL 12/20/22 12/20/22 12/20/22 Range/Units 00:31 06:33 06:33 WBC 10.83 H (4.50-10.00) X 10*3/uL Hgb 15.1 H (12.0-15.0) d/dL MCV 98.3 H (80.0-97.0) FL Plt Count 132 L (140-440) X 10*3/uL Neutrophils # 9.46 H (1.80-7.70) X 10*3/uL Lymphocytes # 0.71 L (0.90-5.00) X 10*3/uL Eosinophils # 0 L (0.04-0.35) X 10*3/uL Carbon Dioxide 20.4 L (21.6-31.8) mmol/L Anion Gap 14.60 H (4.00-12.00) mmol/L BUN 31.4 H (9.0-27.0) mg/dL BUN/Creatinine Ratio 26.17 H (12.00-20.00) Ratio Glucose 115 H (70-110) mg/dL POC Glucose (mg/dL) 125 H (70-110) mg/dL Calcium 12.6 H (8.7-10.3) mg/dL AST 125 H (14-35) U/L ALT 103 H (10-49) U/L Alkaline Phosphatase 176 H (41-126) U/L Albumin 3.7 L (3.8-4.9) d/dL Albumin/Globulin Ratio 1.28 L (1.60-3.17) Ratio Vitamin D 25-Hydroxy (30.0-100.0) ng/mL 12/20/22 12/20/22 Range/Units 07:01 11:59 WBC (4.50-10.00) X 10*3/uL Hgb (12.0-15.0) d/dL MCV (80.0-97.0) FL Plt Count (140-440) X 10*3/uL Neutrophils # (1.80-7.70) X 10*3/uL Lymphocytes # (0.90-5.00) X 10*3/uL Eosinophils # (0.04-0.35) X 10*3/uL Carbon Dioxide (21.6-31.8) mmol/L Anion Gap (4.00-12.00) mmol/L BUN (9.0-27.0) mg/dL BUN/Creatinine Ratio (12.00-20.00) Ratio Glucose (70-110) mg/dL POC Glucose (mg/dL) 114 H 113 H (70-110) mg/dL Calcium (8.7-10.3) mg/dL AST (14-35) U/L ALT (10-49) U/L Alkaline Phosphatase (41-126) U/L Albumin (3.8-4.9) d/dL Albumin/Globulin Ratio (1.60-3.17) Ratio Vitamin D 25-Hydroxy (30.0-100.0) ng/mL Microbiology - Last 24 Hours (Table) 12/18/22 12:08 Blood Culture - Preliminary Blood Chest x-ray: report reviewed CT scan - chest: report reviewed US - abdomen: report reviewed Assessment and Plan (1) Hypercalcemia Current Visit: Yes Status: Acute Priority: High Code(s): E83.52 - HYPERCALCEMIA SNOMED Code(s): 95218087 Plan: Hypercalcemia: -Upon arrival Calcium 13.0. S/p fluid bolus and zometa infusion. Corrected calcium 12.8 today. -CTA chest revealed 1.5 cm pulmonary nodule in the left lower lobe that is unchanged and been being followed outpatient. Gallbladder ultrasound revealed no distention or gallstones. Wall thicknesses is upper limits of normal measuring 3 mm. No pericholecystic fluid seen. Sonographic Louie sign was negative. Per ER note, CT AP was obtained at [facility] revealing cirrhotic morphology of the liver. Cholelithiasis. No signs of cholecystitis. -LFTs elevated. Lipase normal. Bilirubin normal. Hx Etoh. Pt recently quit drinking, approx 7 weeks ago. -Denies constitutional symptoms and personal history of cancer. Father had history of pancreatic cancer. Pt denies personal history of cancer. -Fluids increased to 125ml/hr. Dose of calcitonin ordered. Repeat calcium in the morning. PTH 5.4. PTHrP ordered - reports recent finding of knee fracture without any known injury, concerning for pathological fracture. Bone scan ordered -Will obtain tumor markers. If AFP elevated will need MRI liver for more detailed imaging. -SPEP, immunofixation, serum K/L light chains, and immunoglobulins ordered to r/o underlying bone marrow etiology -Discussed with patient and spouse findings and concerns in regards to elevated calcium and need for further workup to r/o malignancy. Pt and were agreeable to proceed with further imaging/testing attests: I have performed H&P and developed impression and plan of care for patient, discussed with dictator. I agree with dictated note, documented as a scribe
[2022-12-20 16:11] LABS: Alpha Fetoprotein, Tumor Mkr <3.00 ng/mL (0.00-7.90)
[2022-12-20 17:06] LABS: Glucose,Whole Blood 114 mg/dL (70-110)
[2022-12-20 19:04] LABS: Gamma Globulin 1.04 d/dL (0.70-1.50)
[2022-12-20] MEDS: ATORVASTATIN 80 MG TAB PO SCH (20:16)
[2022-12-20] MEDS: amLODIPine 10 MG TAB PO SCH (20:16)
[2022-12-20] MEDS: CLOPIDOGREL 75 MG TAB PO SCH (20:16)
[2022-12-20 20:19] LABS: Glucose,Whole Blood 178 mg/dL (70-110)
--- NOTE | 2022-12-20 22:18 | P.PN ---
Subjective Progress Note Date: 12/20/22 Principal diagnosis: ?Cholecystitis , Pneumonia Patient is a 67-year-old male with a past medical history significant for hypertension hyperlipidemia [place] COPD coronary artery disease and DVT presenting to the [facility] for evaluation of diffuse pain patient compl aining of pain to the left shoulder area as well as to the upper abdominal area , Patient did have a gallbladder ultrasound that shows mild thickening but no gallstones CT angiogram of the chest did shows a right lower lobe infiltrate concerning for possible pneumonia. On today's evaluation that is 12/20/2022, patient denies having any fever or any chills patient still complaining of bilateral rib cage pain he did have a cough with some sputum production however he did not provide any sputum sample. Denies having any nausea or vomiting no abdominal pain and no diarrhea has been reported Objective - Vital Signs Vital signs: Vital Signs Temp 97.8 F 12/20/22 07:42 Pulse 76 12/20/22 07:42 Resp 20 12/20/22 07:42 BP 183/92 12/20/22 07:42 Pulse Ox 92 L 12/20/22 08:38 FiO2 Intake & Output 12/19/22 12/20/22 12/20/22 18:59 06:59 18:59 Intake Total 1000 Output Total 525 Balance 1000 -525 Intake: Intake, IV Titration 1000 Amount Piperacillin-Tazobactam 3 100 .375 gm In Sodium Chloride 0.9% 100 ml @ 25 mls/hr IVPB Q8HR [facility] Rx# :[id number] Sodium Chloride 0.9% 1, 900 000 ml @ 75 mls/hr IV . [id number] [facility] Rx#:[id number] Output: Urine 525 Other: Voiding Method Urinal Urinal Urinal # Voids 1 3 - Exam GENERAL DESCRIPTION: Elderly male lying in bed in no distress RESPIRATORY SYSTEM: Unlabored breathing , decreased breath sounds at bases HEART: S1 S2 regular rate and rhythm ,no loud murmurs ABDOMEN: Soft , no tenderness EXTREMITIES: No edema feet - Labs CBC & Chem 7: 12/20/22 06:33 12/20/22 06:33 Labs: Abnormal Lab Results - Last 24 Hours (Table) 12/19/22 12/19/22 12/19/22 Range/Units 07:07 07:07 12:15 POC Glucose (mg/dL) 141 H (70-110) mg/dL Hemoglobin A1c 7.0 H (<=6.0) % Procalcitonin 0.11 H (0.02-0.09) ng/mL 12/19/22 12/19/22 12/20/22 Range/Units 17:24 20:47 00:31 POC Glucose (mg/dL) 192 H 166 H 125 H (70-110) mg/dL Hemoglobin A1c (<=6.0) % Procalcitonin (0.02-0.09) ng/mL 12/20/22 Range/Units 07:01 POC Glucose (mg/dL) 114 H (70-110) mg/dL Hemoglobin A1c (<=6.0) % Procalcitonin (0.02-0.09) ng/mL Microbiology - Last 24 Hours (Table) 12/18/22 12:08 Blood Culture - Preliminary Blood Assessment and Plan (1) Pneumonia Current Visit: Yes Status: Acute Code(s): J18.9 - PNEUMONIA, UNSPECIFIED ORGANISM SNOMED Code(s): 659416374 Plan: 1patient was in the hospital generalized body aches has been complaining of pain mostly to the bilateral rib cage area and to the posterior shoulder patient did have mildly elevated liver enzymes however ultrasound did show some mild wall thickness but no gallstones or any pericholecystic fluid patient was mildly tender in the right upper quadrant area underlying cholecystitis less likely but not entirely excluded 2-patient did have some shortness of breath and a cough and did have a consolidation seen on the CT angiogram of the chest concerning for possible pneumonia 3-We are still waiting for the sputum for Gram stain and culture patient CRP and procalcitonin mildly elevated currently work-up is in progress for hypercalcemia concerning for possible malignancy we will continue patient on Zosyn while awaiting further work-up to be completed Dictation was produced using [employer] dictation software. please excuse any gramma tical, word or spelling errors.
[2022-12-21] MEDS: PIPERACILLIN-TAZOBACTAM 3.375 GM in SODIUM CHLORIDE 0.9% 100 ML IVPB SCH ×3 (00:18→16:19)
[2022-12-21] MEDS: methylPREDNISolone SOD SUCCI 125 MG/2 ML VIAL IV SCH ×4 (00:18→18:02)
[2022-12-21] MEDS: SODIUM CHLORIDE 0.9% 1,000 ML IV SCH ×3 (00:22→16:20)
[2022-12-21] MEDS: MORPHINE SULFATE 4 MG/ML SYRINGE IVP PRN ×5 (00:31→18:02)
[2022-12-21 06:58] LABS: Basophils % (A) 0 %; Eosinophils % (A) 0 %; HCT 43.1 % (39.0-53.0); HGB 14.1 gm/dL (13.0-17.5); Lymphocytes # (A) 0.8 k/uL (1.0-4.8); Lymphocytes % (A) 9 %; MCH 32.3 pg (25.0-35.0); MCHC 32.7 g/dL (31.0-37.0); MCV 98.7 fL (80.0-100.0); Mean Platelet Volume 8.3; Monocytes # (A) 0.5 k/uL (0-1.0); Monocytes % (A) 6 %; Neutrophils # (A) 6.8 k/uL (1.3-7.7); Neutrophils % (A) 83 %; Platelet Count 119 k/uL (150-450); RBC 4.37 m/uL (4.30-5.90); RDW 13.6 % (11.5-15.5); WBC 8.2 k/uL (3.8-10.6)
[2022-12-21 07:26] LABS: ALT 90 U/L (4-49); AST 110 U/L (17-59); African American GFR (CKD) 85 (>60 ml/min/1.73 sqM); Albumin 3.2 g/dL (3.5-5.0); Albumin/Globulin Ratio 1.1; Alkaline Phosphatase 160 U/L (38-126); Anion Gap 5 mmol/L; Blood Urea Nitrogen 24 mg/dL (9-20); Calcium 9.8 mg/dL (8.4-10.2); Carbon Dioxide 28 mmol/L (22-30); Chloride 105 mmol/L (98-107); Globulin 2.9 g/dL; Glucose 120 mg/dL (74-99); Non-African American GFR(CKD) 73 (>60 ml/min/1.73 sqM); Potassium 4.6 mmol/L (3.5-5.1); Sodium 138 mmol/L (137-145); Total Bilirubin 0.4 mg/dL (0.2-1.3); Total Protein 6.1 g/dL (6.3-8.2)
[2022-12-21 07:28] LABS: Glucose,Whole Blood 118 mg/dL (70-110)
[2022-12-21] MEDS: INSULIN ASPART (NovoLOG) 100 UNIT/ML VIAL SQ SCH ×4 (07:46→21:24)
[2022-12-21] MEDS: EZETIMIBE 10 MG TAB PO SCH (08:12)
[2022-12-21] MEDS: SENNOSIDES-DOCUSATE SODIUM 1 EACH TAB PO SCH ×2 (08:13→20:58)
[2022-12-21] MEDS: GABAPENTIN 300 MG CAP PO SCH ×2 (08:13→21:00)
[2022-12-21] MEDS: THIAMINE 100 MG TAB PO SCH (08:13)
[2022-12-21] MEDS: BACLOFEN 10 MG TAB PO SCH ×2 (08:13→21:00)
[2022-12-21] MEDS: DULoxetine HCL 30 MG CAPSULE.DR PO SCH ×2 (08:13→20:58)
[2022-12-21] MEDS: ASPIRIN 81 MG PO SCH (08:13)
[2022-12-21] MEDS: RIVAROXABAN 2.5 MG TABLET PO SCH (08:14)
[2022-12-21] MEDS: LOSARTAN 50 MG TAB PO SCH (08:14)
[2022-12-21] MEDS: PANTOPRAZOLE 40 MG/10 ML VIAL IV SCH ×2 (08:14→20:57)
[2022-12-21] MEDS: METOPROLOL TARTRATE 25 MG TAB PO SCH ×2 (08:14→20:58)
[2022-12-21] MEDS: HYDROcodone/APAP 10-325MG 1 EACH TAB PO PRN (08:18)
[2022-12-21] MEDS: SYMBICORT 160-4.5 MCG INHALER INHALATION SCH ×2 (09:01→21:32)
--- NOTE | 2022-12-21 10:15 | NM ---
EXAMINATION TYPE: NM bone scan whole body DATE OF EXAM: 12/20/2022 COMPARISON: , CT scan 12/17/2022, CT scan 12/18/2022 CLINICAL INDICATION: Male, 67 years old with history of Hypercalcemia; Delayed whole-body scanning was performed following the injection of 22 mCi Tc 99m MDP. Images acqui red 4 hours post injection. FINDINGS: There is a heterogeneous uptake involving the rib cage bilaterally. Abnormal uptake involving the left knee may be posttraumatic or post arthritic. Abnormal uptake involving the right iliac bone is nonspecific. Abnormal uptake involving the calvarium is heterogeneous and BE correlated with x-ray. Number abnormal uptake involving the shoulders likely is post arthritic. Heterogeneous uptake throughout the vertebral column. There is a photopenic defect involving the right hip is compatible with prior hip surgery. Moderate intensity uptake in the midthoracic spine likely corresponds to previous compression fractur e noted by CT scan. IMPRESSION: There is marked heterogeneous uptake involving the bilateral rib cage, vertebral column, pelvis and c alvarium appears to correspond to abnormal marrow appearance of the visualized osseous structures by CT scan 12/18/2022 and 12/17/2022.. This could be metabolic or on the basis of occult malignancy. Recom mend workup to exclude underlying malignancy
--- NOTE | 2022-12-21 11:37 | P.PN ---
Subjective Progress Note Date: 12/21/22 67-year-old male patient was transferred to us from [facility] for diffuse pain. The pain is mainly across his chest and upper abdomen and across the rib cage addition to chronic back pain. Is known to have chronic dyspnea and the patient is noted COPD and a left lung pulmonary nodule that has been followed up on outpatient basis. Initially went to [facility] and his calcium level was noted to be elevated. Based on his ongoing symptoms, he was referred to us. His current calcium level is at 13. He did not have any previous issues with hypercalcemia. Is known to have COPD, pulmonary nodule, coronary artery disease and extensive peripheral vascular disease and the patie nt has undergone previous vascular bypass surgery and stenting to the lower extremities. He is also known to have previous history of DVT. Maintain on long-term anticoagulants. At the same time, the patient has hypertension, hyperlipidemia, obesity, chronic back pain and a recent MRI from August 2022 showed wedging of the L2 spine in the order of 15% without any acute fractures. There is also multilevel spondylitic changes and mildly prominent narrowing due to facet arthropathy and disc space narrowing at the level of L4-L5 and old compression fracture the level of L2. Mild edema in the anterior L3 vertebral and posterior L5 vertebral and there is no evidence of any significant lumbar st enosis. The computed tomography scan of the abdomen and pelvis that was done in 09/22/2022 showed moderate to severe narrowing throughout the bilateral external iliac arteries and a stent in the superficial femoral artery was patent on the left. There was cholelithiasis and moderate atherosclerotic changes throughout the abdominal aorta and colonic diverticulosis. There are atelectatic changes in the right posterior base. The abdomen is gravid 7.6, hemoglobin is 15.4 and platelet count is 135. LFTs are abnormal with a AST of 105, ALT 121 and alkaline phosphatase of 193. Bilirubin is at 0.5. Covid 19 testing is negative. Creatinine is at 1.1. On 12/19/2022, the patient is stable without any change in his condition. On 12/19/2022, the patient is stable without any changes condition. Calcium level today is at 12.8. Awaiting further workup. Remains on IV fluids and Zosyn. Remains on anticoagulation with is xarelto The patient is seen today 12/20/2022 in follow-up on the regular medical floor. He is awake and alert in no acute distress. Resting fairly comfortably in bed. Still having some bilateral chest wall discomfort and rib pain. A culture revealing no growth to date. Sodium 143. Potassium 4.1. Bicarb 20. BUN 31. Creatinine 1.2. Glucose 115. AST 125. ALT 103. Pro-calcitonin 0.11. Continue bronchodilators and steroids. Antibiotics in the form of Zosyn. Anticoagulated with Xarelto. Receiving normal saline at 75 ML's per hour. The patient is seen today 12/21/2022 in follow-up on the regular medical floor. He is currently sitting up in bed. Awake and alert in no acute distress. Maintaining O2 saturations in the 90s on 4 L nasal cannula. Afebrile. Hemodynamically stable. Still with some bilateral rib pain. Bone scan did reveal marketed heterogenous uptake involving the bilateral rib cage, vertebral column, pelvis and calvarium appears to correspond to abnormal marrow appearance of the visualized osseous structures on CAT scan. Suspect occult malignancy. Blood culture reveals no growth. Sputum culture revealed no growth. White count 8.2. Hemoglobin 14.1. Platelets 119. Sodium 138. Potassium 4.6. Bicarb 28. BUN 24. Creatinine 1.07. Glucose 120. AST 110. ALT 90. Carcinoembryonic antigen 4441. CA 199 antigen 69.5. Remains on DuoNeb inhalations, Symbicort, IV Solu-Medrol. Antiemetics in the form of Zosyn. Anti coagulated with Xarelto. Objective - Vital Signs Vital signs: Vital Signs Temp 97.3 F L 12/21/22 07:25 Pulse 68 12/21/22 07:25 Resp 17 12/21/22 07:25 BP 148/77 12/21/22 07:25 Pulse Ox 96 12/21/22 09:01 FiO2 Intake & Output 12/20/22 12/21/22 12/21/22 18:59 06:59 18:59 Intake Total 1250 Output Total 1000 Balance 250 Intake: Intake, IV Titration 1250 Amount Sodium Chloride 0.9% 1, 1250 000 ml @ 125 mls/hr IV . Q8H [facility] Rx#:[id number] Output: Urine 1000 Other: Voiding Method Urinal Urinal Urinal # Voids 3 1 # Bowel Movements 1 - Exam GENERAL EXAM: Alert, 67-year-old male, resting in bed, on 4 liters nasal cannula, comfortable in no apparent distress. HEAD: Normocephalic. EYES: Normal reaction of pupils, equal size. NOSE: Clear with pink turbinates. THROAT: No erythema or exudates. NECK: No masses, no JVD. CHEST: No chest wall deformity. Bilateral chest wall pain LUNGS: Equal air entry with no crackles, wheeze, rhonchi or dullness. CVS: S1 and S2 normal with no audible murmur, regular rhythm. ABDOMEN: No hepatosplenomegaly, normal bowel sounds, no guarding or rigidity. SPINE: No scoliosis or deformity SKIN: No rashes CENTRAL NERVOUS SYSTEM: No focal deficits, tone is normal in all 4 extremities. EXTREMITIES: There is no peripheral edema. No clubbing, no cyanosis. Peripheral pulses are intact. - Labs CBC & Chem 7: 12/21/22 05:44 12/21/22 05:44 Labs: Abnormal Lab Results - Last 24 Hours (Table) 12/17/22 12/18/22 12/20/22 Range/Units 21:55 11:38 06:33 WBC 10.83 H (4.50-10.00) X 10*3/uL Hgb 15.1 H (12.0-15.0) d/dL MCV 98.3 H (80.0-97.0) FL Plt Count 132 L (140-440) X 10*3/uL Neutrophils # 9.46 H (1.80-7.70) X 10*3/uL Lymphocytes # 0.71 L (0.90-5.00) X 10*3/uL Eosinophils # 0 L (0.04-0.35) X 10*3/uL Carbon Dioxide (21.6-31.8) mmol/L Anion Gap (4.00-12.00) mmol/L BUN (9.0-27.0) mg/dL BUN/Creatinine Ratio (12.00-20.00) Ratio Glucose (70-110) mg/dL POC Glucose (mg/dL) (70-110) mg/dL Calcium (8.7-10.3) mg/dL AST (14-35) U/L ALT (10-49) U/L Alkaline Phosphatase (41-126) U/L Total Protein (6.3-8.2) g/dL Albumin (3.8-4.9) d/dL Albumin/Globulin Ratio (1.60-3.17) Ratio Hyuxr-5-Cxkexqfhx 0.41 H (0.10-0.40) d/dL Okuyf-0-Vdqeeclsi 1.33 H (0.60-1.00) d/dL Carcinoembryonic Ag (0.0-4.9) ng/mL CA 19-9 Antigen (0.0-34.9) U/mL Vitamin D 25-Hydroxy 11.4 L (30.0-100.0) ng/mL 12/20/22 12/20/22 12/20/22 Range/Units 06:33 09:21 09:21 WBC (4.50-10.00) X 10*3/uL Hgb (12.0-15.0) d/dL MCV (80.0-97.0) FL Plt Count (140-440) X 10*3/uL Neutrophils # (1.80-7.70) X 10*3/uL Lymphocytes # (0.90-5.00) X 10*3/uL Eosinophils # (0.04-0.35) X 10*3/uL Carbon Dioxide 20.4 L (21.6-31.8) mmol/L Anion Gap 14.60 H (4.00-12.00) mmol/L BUN 31.4 H (9.0-27.0) mg/dL BUN/Creatinine Ratio 26.17 H (12.00-20.00) Ratio Glucose 115 H (70-110) mg/dL POC Glucose (mg/dL) (70-110) mg/dL Calcium 12.6 H (8.7-10.3) mg/dL AST 125 H (14-35) U/L ALT 103 H (10-49) U/L Alkaline Phosphatase 176 H (41-126) U/L Total Protein (6.3-8.2) g/dL Albumin 3.7 L (3.8-4.9) d/dL Albumin/Globulin Ratio 1.28 L (1.60-3.17) Ratio Hvhir-1-Bzsekzusb (0.10-0.40) d/dL Xmcyb-1-Dxmtiwhhd (0.60-1.00) d/dL Carcinoembryonic Ag 4441.0 H (0.0-4.9) ng/mL CA 19-9 Antigen 69.5 H (0.0-34.9) U/mL Vitamin D 25-Hydroxy (30.0-100.0) ng/mL 12/20/22 12/20/22 12/20/22 Range/Units 11:59 17:04 20:17 WBC (4.50-10.00) X 10*3/uL Hgb (12.0-15.0) d/dL MCV (80.0-97.0) FL Plt Count (140-440) X 10*3/uL Neutrophils # (1.80-7.70) X 10*3/uL Lymphocytes # (0.90-5.00) X 10*3/uL Eosinophils # (0.04-0.35) X 10*3/uL Carbon Dioxide (21.6-31.8) mmol/L Anion Gap (4.00-12.00) mmol/L BUN (9.0-27.0) mg/dL BUN/Creatinine Ratio (12.00-20.00) Ratio Glucose (70-110) mg/dL POC Glucose (mg/dL) 113 H 114 H 178 H (70-110) mg/dL Calcium (8.7-10.3) mg/dL AST (14-35) U/L ALT (10-49) U/L Alkaline Phosphatase (41-126) U/L Total Protein (6.3-8.2) g/dL Albumin (3.8-4.9) d/dL Albumin/Globulin Ratio (1.60-3.17) Ratio Fwggk-8-Nrxdnknpg (0.10-0.40) d/dL Lcqqh-2-Ljitugtgw (0.60-1.00) d/dL Carcinoembryonic Ag (0.0-4.9) ng/mL CA 19-9 Antigen (0.0-34.9) U/mL Vitamin D 25-Hydroxy (30.0-100.0) ng/mL 12/21/22 12/21/22 12/21/22 Range/Units 05:44 05:44 07:27 WBC (4.50-10.00) X 10*3/uL Hgb (12.0-15.0) d/dL MCV (80.0-97.0) FL Plt Count 119 L (140-440) X 10*3/uL Neutrophils # (1.80-7.70) X 10*3/uL Lymphocytes # 0.8 L (0.90-5.00) X 10*3/uL Eosinophils # (0.04-0.35) X 10*3/uL Carbon Dioxide (21.6-31.8) mmol/L Anion Gap (4.00-12.00) mmol/L BUN 24 H (9.0-27.0) mg/dL BUN/Creatinine Ratio (12.00-20.00) Ratio Glucose 120 H (70-110) mg/dL POC Glucose (mg/dL) 118 H (70-110) mg/dL Calcium (8.7-10.3) mg/dL AST 110 H (14-35) U/L ALT 90 H (10-49) U/L Alkaline Phosphatase 160 H (41-126) U/L Total Protein 6.1 L (6.3-8.2) g/dL Albumin 3.2 L (3.8-4.9) d/dL Albumin/Globulin Ratio (1.60-3.17) Ratio Uyuaf-9-Vwvodjxdw (0.10-0.40) d/dL Pnjvz-0-Twidsysib (0.60-1.00) d/dL Carcinoembryonic Ag (0.0-4.9) ng/mL CA 19-9 Antigen (0.0-34.9) U/mL Vitamin D 25-Hydroxy (30.0-100.0) ng/mL Microbiology - Last 24 Hours (Table) 12/20/22 11:55 Gram Stain - Preliminary Sputum Sputum Culture - Preliminary 12/18/22 12:08 Blood Culture - Preliminary Blood Assessment and Plan Assessment: Diffuse skeletal pain involving the chest wall and back. Bone scan did reveal marked heterogenous uptake involving the bilateral rib cage, vertebral column, pelvis and calvarium appears to correspond to abnormal marrow appearance of the visualized osseous structures on CAT scan. Suspect malignancy. Carcinoembryonic antigen 4441. CA 199 antigen 69.5. Hypercalcemia. Received Zometa. Calcium level is down to 9.8. Intact PTH low at 5.4. Acute hypoxemic respiratory failure secondary to an acute exacerbation of chronic obstructive pulmonary disease Left lower lobe pulmonary nodule measuring 1.5 cm, will need an outpatient PET CT and further investigation. Probable metastatic disease to the lung. Coronary artery disease Vascular disease with a previous fem-pop bypass surgery Bilateral carotid endarterectomies Coronary artery disease and coronary stenting Previous history of CVA Previous history of DVT of the left lower extremity Previous history of Covid 19 infection in February 2021 Hypertension Hyperlipidemia Abnormal LFTs with cholelithiasis without evidence of cholecystitis History of nephrolithiasis Plan: The patient was seen and evaluated Bone scan, labs and medications reviewed Consult gastroenterology for possible colonoscopy PSA pending Continue the current treatment plan Titrate down the FiO2 as tolerated We will continue to follow I have personally seen and examined the patient, performed the documentation and the assessment and plan as written. Number of minutes spent on the visit: 10.
--- NOTE | 2022-12-21 12:14 | CDI ---
Documentation Clarification Form Date: 12/21/2022 11:48:15 AM From: Mariela Davalos RN CCDS Phone: [phone] Admit Date: 12/18/2022 11:56:00 AM Patient Name: Allen Bowen Visit Number: [id number] Discharge Date: ATTENTION: The Clinical Documentation Specialists (CDI) and [facility] Coding Staff appreciate your assistance in clarifying documentation. Please respond to the clarification below the line at the bottom and electronically sign. The CDI & [facility] Coding staff will review the response and follow-up if needed. Please note: Queries are made part of the Legal Health Record. If you have any questions, please contact the author of this message via ITS. Dr. Cecilia Spear MD Your patient is being treated Oxygen 4L nasal cannula, 12/17 12/21, documented in medical record in Vital Signs. Based on this information and the findings below, is there an additional diagnosis that is clinically appropriate for this patient? History/Risk Factors:67 year old male presents as a transfer from [facility] with upper abdominal pain for several weeks. Medical History: CAD, COPD, HTN and ETOH. 12/18, H&P. Tobacco use: Quit smoking 2008, smoked 30-40 yrs 1PPD Clinical Indicators: Vital signs: 12/17 B/P 80/62; HR 69; Temp 97F Oral; RR 16; SpO2 4L 95% Lung/Breathing assessment, 12/18 H&P: Breath sounds diminished at the bases. A few scattered rhonchi and crackles. CXR, 12/18: Reticular increased densities throughout the mid to lower lungs bilaterally. Treatment: 12/18 Symbicort Inhalation BID; 12/18 Solumedrol 125mg IV x 1; 12/18 Solumedrol 60mg IV Q6HR; Breathing tx: 12/18 Duoneb Inhalation x 1; 12/20 Duoneb Inhalation Q2H PRN; Oxygen 4L nasal cannula Is there an additional diagnosis that is clinically appropriate for this patient? [ ] Acute Hypoxic Respiratory Failure (pO2 <60 mm Hg or SpO2 <91% on room air) [ ] Acute Hypercapnic Respiratory Failure (pCO2 >50 and pH <7.35) [ ] Other Diagnosis, please specify [ ] Unable to determine Query answered in Pulmonary Note 12/21 Dr. Canales / Bouchra Gomez MATTE CUTTER "Acute hypoxemic respiratory failure secondary to an acute exacerbation of chornic obstructive pulmonary disease . (Template Last Revised: August 2020) MTDD
[2022-12-21 12:20] LABS: Glucose,Whole Blood 137 mg/dL (70-110)
--- NOTE | 2022-12-21 12:36 | P.PN ---
Subjective Patient is seen for follow-up for hypercalcemia. PTH is appropriately suppressed. It appears to be secondary to underlying malignancy. Bone scan did show evidence of increased uptake on the ribs and vertebral column as well as the pelvis. 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 Patient is scheduled for CT of the abdomen today. Calcium is 9.8 today. Patient received a dose of Zometa 4 mg on 12/19/2022. Objective - Vital Signs Vital signs: Vital Signs Temp 97.3 F L 12/21/22 07:25 Pulse 68 12/21/22 07:25 Resp 17 12/21/22 07:25 BP 148/77 12/21/22 07:25 Pulse Ox 96 12/21/22 09:01 FiO2 Intake & Output 12/20/22 12/21/22 12/21/22 18:59 06:59 18:59 Intake Total 1250 Output Total 1000 Balance 250 Intake: Intake, IV Titration 1250 Amount Sodium Chloride 0.9% 1, 1250 000 ml @ 125 mls/hr IV . Q8H [facility] Rx#:[id number] Output: Urine 1000 Other: Voiding Method Urinal Urinal Urinal # Voids 3 1 # Bowel Movements 1 - Exam Awake, comfortable, in no acute distress Examination of the heart S1 and S2 Examination the lungs decreased breath sounds at the bases Abdomen is soft, mild tenderness left upper abdomen Examination of lower extremity shows no significant edema [employer] OPERATIONS SPECIALIST exam grossly intact - Labs CBC & Chem 7: 12/21/22 05:44 12/21/22 05:44 Labs: Abnormal Lab Results - Last 24 Hours (Table) 12/17/22 12/18/22 12/20/22 Range/Units 21:55 11:38 09:21 Plt Count (150-450) k/uL Lymphocytes # (1.0-4.8) k/uL BUN (9-20) mg/dL Glucose (74-99) mg/dL POC Glucose (mg/dL) (70-110) mg/dL AST (17-59) U/L ALT (4-49) U/L Alkaline Phosphatase (38-126) U/L Total Protein (6.3-8.2) g/dL Albumin (3.5-5.0) g/dL Djeeu-8-Ylfxyttlj 0.41 H (0.10-0.40) d/dL Jwxcu-6-Kvgglxjdy 1.33 H (0.60-1.00) d/dL Carcinoembryonic Ag 4441.0 H (0.0-4.9) ng/mL CA 19-9 Antigen (0.0-34.9) U/mL Vitamin D 25-Hydroxy 11.4 L (30.0-100.0) ng/mL 12/20/22 12/20/22 12/20/22 Range/Units 09:21 17:04 20:17 Plt Count (150-450) k/uL Lymphocytes # (1.0-4.8) k/uL BUN (9-20) mg/dL Glucose (74-99) mg/dL POC Glucose (mg/dL) 114 H 178 H (70-110) mg/dL AST (17-59) U/L ALT (4-49) U/L Alkaline Phosphatase (38-126) U/L Total Protein (6.3-8.2) g/dL Albumin (3.5-5.0) g/dL Afcrb-0-Diffbnxhh (0.10-0.40) d/dL Kluxa-6-Bsuvmosoy (0.60-1.00) d/dL Carcinoembryonic Ag (0.0-4.9) ng/mL CA 19-9 Antigen 69.5 H (0.0-34.9) U/mL Vitamin D 25-Hydroxy (30.0-100.0) ng/mL 12/21/22 12/21/22 12/21/22 Range/Units 05:44 05:44 07:27 Plt Count 119 L (150-450) k/uL Lymphocytes # 0.8 L (1.0-4.8) k/uL BUN 24 H (9-20) mg/dL Glucose 120 H (74-99) mg/dL POC Glucose (mg/dL) 118 H (70-110) mg/dL AST 110 H (17-59) U/L ALT 90 H (4-49) U/L Alkaline Phosphatase 160 H (38-126) U/L Total Protein 6.1 L (6.3-8.2) g/dL Albumin 3.2 L (3.5-5.0) g/dL Cbfru-7-Pyggiwwna (0.10-0.40) d/dL Jubib-4-Flinetbrf (0.60-1.00) d/dL Carcinoembryonic Ag (0.0-4.9) ng/mL CA 19-9 Antigen (0.0-34.9) U/mL Vitamin D 25-Hydroxy (30.0-100.0) ng/mL 12/21/22 Range/Units 12:19 Plt Count (150-450) k/uL Lymphocytes # (1.0-4.8) k/uL BUN (9-20) mg/dL Glucose (74-99) mg/dL POC Glucose (mg/dL) 137 H (70-110) mg/dL AST (17-59) U/L ALT (4-49) U/L Alkaline Phosphatase (38-126) U/L Total Protein (6.3-8.2) g/dL Albumin (3.5-5.0) g/dL Jjpiq-2-Iznayhysc (0.10-0.40) d/dL Qahay-3-Icyjftitr (0.60-1.00) d/dL Carcinoembryonic Ag (0.0-4.9) ng/mL CA 19-9 Antigen (0.0-34.9) U/mL Vitamin D 25-Hydroxy (30.0-100.0) ng/mL Microbiology - Last 24 Hours (Table) 12/20/22 11:55 Gram Stain - Preliminary Sputum Sputum Culture - Preliminary 12/18/22 12:08 Blood Culture - Preliminary Blood Assessment and Plan Assessment: 1. Hypercalcemia rule out underlying malignancy. PTH is appropriately suppressed. CEA is significantly elevated and patient is scheduled for abdominal CT today. 2. Left lower lobe pulmonary nodule 3. Abdominal pain being followed by general surgery. Gallstones noted but no significant obstruction. Conservative management per surgery. Plan: Obtain initial workup for hypercalcemia Continue with IV fluids Decrease rate to about 75 mL an hour Repeat labs in a.m. Follow-up on results of CT of the abdomen.
[2022-12-21 12:39] LABS: Angiotensin-1 Converting Enz. 39 U/L (8-52)
--- NOTE | 2022-12-21 12:44 | P.PN ---
Subjective Progress Note Date: 12/21/22 CHIEF COMPLAINT: Abdominal pain HISTORY OF PRESENT ILLNESS: Patient complains of both right upper quadrant and left upper quadrant abdominal pain more in the rib cage area. He does report pain goes into his back. He denies any nausea or vomiting. Patient did have a bowel movement. Pain is worse with movement. Patient tolerating diet. Patient had bone scan completed to evaluate hypercalcemia. Results states there is marked heterogeneous uptake involving the bilateral rib cage, vertebral column, pelvis and calvarium appears to correspond to abnormal marrow appearance of the visualized osseous structures by CAT scan. This could be metabolic or on the basis of occult malignancy. Recommend workup to exclude underlying malignancy. Afebrile. WBC is 8.2 Hgb 14.1 platelets 119 LFTs trending down CEA and CA-19-9 elevated PHYSICAL EXAM: VITAL SIGNS: Reviewed GENERAL: Well-developed in no acute distress. HEENT: No sclera icterus. Extraocular movements grossly intact. Moist buccal mucosa. Head is atraumatic, normocephalic. Hears conversational speech. No nasal drainage. NECK: Supple without lymphadenopathy. CHEST: Non-labored respirations and equal bilateral excursions. CARDIOVASCULAR: Palpable 2+ radial pulses. ABDOMEN: Soft. Mildly distended. Tenderness to palpation of the right upper quadrant and left upper quadrant and rib cage MUSCULOSKELETAL: No clubbing or cyanosis. NEUROLOGIC: No focal or lateralizing signs. Cranial nerves II through XII grossly intact. PSYCH: Appropriate affect. Alert and oriented to person, place and time. SKIN: Well perfused. Good skin turgor. ASSESSMENT: 1. Bilateral upper abdominal pain/ rib cage pain 2. Gallstones 3. Mildly elevated LFTs 4. Hypercalcemia 5. COPD exacerbation PLAN: - HIDA scan ordered for further evaluation of gallbladder. Patient cannot have HIDA scan completed until tomorrow due to recent bone scan. - LFTs are elevated in the presence of gallstones. Recommend conservative management due to exacerbation of COPD. - Low fat diet advised - Continue oncology workup Physician Soil Conservation Teacher note has been reviewed by physician. Signing provider agrees with the documented findings, assessment, and plan of care. Objective - Vital Signs Vital signs: Vital Signs Temp 97.3 F L 12/21/22 07:25 Pulse 68 12/21/22 07:25 Resp 17 12/21/22 07:25 BP 148/77 12/21/22 07:25 Pulse Ox 96 07/18/23 09:01 FiO2 Intake & Output 12/20/22 12/21/22 12/21/22 18:59 06:59 18:59 Intake Total 1250 Output Total 1000 Balance 250 Intake: Intake, IV Titration 1250 Amount Sodium Chloride 0.9% 1, 1250 000 ml @ 125 mls/hr IV . Q8H [facility] Rx#:[id number] Output: Urine 1000 Other: Voiding Method Urinal Urinal Urinal # Voids 3 # Bowel Movements 1 - Labs CBC & Chem 7: 12/21/22 05:44 12/21/22 05:44 Labs: Abnormal Lab Results - Last 24 Hours (Table) 12/17/22 12/18/22 12/20/22 Range/Units 21:55 11:38 06:33 WBC 10.83 H (4.50-10.00) X 10*3/uL Hgb 15.1 H (12.0-15.0) d/dL MCV 98.3 H (80.0-97.0) FL Plt Count 132 L (140-440) X 10*3/uL Neutrophils # 9.46 H (1.80-7.70) X 10*3/uL Lymphocytes # 0.71 L (0.90-5.00) X 10*3/uL Eosinophils # 0 L (0.04-0.35) X 10*3/uL Carbon Dioxide (21.6-31.8) mmol/L Anion Gap (4.00-12.00) mmol/L BUN (9.0-27.0) mg/dL BUN/Creatinine Ratio (12.00-20.00) Ratio Glucose (70-110) mg/dL POC Glucose (mg/dL) (70-110) mg/dL Calcium (8.7-10.3) mg/dL AST (14-35) U/L ALT (10-49) U/L Alkaline Phosphatase (41-126) U/L Total Protein (6.3-8.2) g/dL Albumin (3.8-4.9) d/dL Albumin/Globulin Ratio (1.60-3.17) Ratio Rbxax-0-Dnkvoccrv 0.41 H (0.10-0.40) d/dL Fwjps-6-Afwniwwcx 1.33 H (0.60-1.00) d/dL Carcinoembryonic Ag (0.0-4.9) ng/mL CA 19-9 Antigen (0.0-34.9) U/mL Vitamin D 25-Hydroxy 11.4 L (30.0-100.0) ng/mL 12/20/22 12/20/22 12/20/22 Range/Units 06:33 09:21 09:21 WBC (4.50-10.00) X 10*3/uL Hgb (12.0-15.0) d/dL MCV (80.0-97.0) FL Plt Count (140-440) X 10*3/uL Neutrophils # (1.80-7.70) X 10*3/uL Lymphocytes # (0.90-5.00) X 10*3/uL Eosinophils # (0.04-0.35) X 10*3/uL Carbon Dioxide 20.4 L (21.6-31.8) mmol/L Anion Gap 14.60 H (4.00-12.00) mmol/L BUN 31.4 H (9.0-27.0) mg/dL BUN/Creatinine Ratio 26.17 H (12.00-20.00) Ratio Glucose 115 H (70-110) mg/dL POC Glucose (mg/dL) (70-110) mg/dL Calcium 12.6 H (8.7-10.3) mg/dL AST 125 H (14-35) U/L ALT 103 H (10-49) U/L Alkaline Phosphatase 176 H (41-126) U/L Total Protein (6.3-8.2) g/dL Albumin 3.7 L (3.8-4.9) d/dL Albumin/Globulin Ratio 1.28 L (1.60-3.17) Ratio Gadvv-2-Gekliksak (0.10-0.40) d/dL Ulikn-1-Uyftobfij (0.60-1.00) d/dL Carcinoembryonic Ag 4441.0 H (0.0-4.9) ng/mL CA 19-9 Antigen 69.5 H (0.0-34.9) U/mL Vitamin D 25-Hydroxy (30.0-100.0) ng/mL 12/20/22 12/20/22 12/20/22 Range/Units 11:59 17:04 20:17 WBC (4.50-10.00) X 10*3/uL Hgb (12.0-15.0) d/dL MCV (80.0-97.0) FL Plt Count (140-440) X 10*3/uL Neutrophils # (1.80-7.70) X 10*3/uL Lymphocytes # (0.90-5.00) X 10*3/uL Eosinophils # (0.04-0.35) X 10*3/uL Carbon Dioxide (21.6-31.8) mmol/L Anion Gap (4.00-12.00) mmol/L BUN (9.0-27.0) mg/dL BUN/Creatinine Ratio (12.00-20.00) Ratio Glucose (70-110) mg/dL POC Glucose (mg/dL) 113 H 114 H 178 H (70-110) mg/dL Calcium (8.7-10.3) mg/dL AST (14-35) U/L ALT (10-49) U/L Alkaline Phosphatase (41-126) U/L Total Protein (6.3-8.2) g/dL Albumin (3.8-4.9) d/dL Albumin/Globulin Ratio (1.60-3.17) Ratio Zibzp-6-Nabutrvzh (0.10-0.40) d/dL Ttywt-7-Bkvqejiow (0.60-1.00) d/dL Carcinoembryonic Ag (0.0-4.9) ng/mL CA 19-9 Antigen (0.0-34.9) U/mL Vitamin D 25-Hydroxy (30.0-100.0) ng/mL 12/21/22 12/21/22 12/21/22 Range/Units 05:44 05:44 07:27 WBC (4.50-10.00) X 10*3/uL Hgb (12.0-15.0) d/dL MCV (80.0-97.0) FL Plt Count 119 L (140-440) X 10*3/uL Neutrophils # (1.80-7.70) X 10*3/uL Lymphocytes # 0.8 L (0.90-5.00) X 10*3/uL Eosinophils # (0.04-0.35) X 10*3/uL Carbon Dioxide (21.6-31.8) mmol/L Anion Gap (4.00-12.00) mmol/L BUN 24 H (9.0-27.0) mg/dL BUN/Creatinine Ratio (12.00-20.00) Ratio Glucose 120 H (70-110) mg/dL POC Glucose (mg/dL) 118 H (70-110) mg/dL Calcium (8.7-10.3) mg/dL AST 110 H (14-35) U/L ALT 90 H (10-49) U/L Alkaline Phosphatase 160 H (41-126) U/L Total Protein 6.1 L (6.3-8.2) g/dL Albumin 3.2 L (3.8-4.9) d/dL Albumin/Globulin Ratio (1.60-3.17) Ratio Ejcmz-8-Yvrdgwfol (0.10-0.40) d/dL Nglze-8-Jezwpyizm (0.60-1.00) d/dL Carcinoembryonic Ag (0.0-4.9) ng/mL CA 19-9 Antigen (0.0-34.9) U/mL Vitamin D 25-Hydroxy (30.0-100.0) ng/mL Microbiology - Last 24 Hours (Table) 12/20/22 11:55 Gram Stain - Preliminary Sputum Sputum Culture - Preliminary 12/18/22 12:08 Blood Culture - Preliminary Blood
--- NOTE | 2022-12-21 14:13 | CT ---
EXAMINATION TYPE: CT abdomen pelvis w con DATE OF EXAM: 12/21/2022 COMPARISON: 09/22/2022 INDICATION: abd pain abdominal distention DLP: 2938 mGycm, Automated exposure control for dose reduction was used. CONTRAST: 100 mL of Isovue 300. Study performed with Oral Contrast TECHNIQUE: Axial images were obtained from above the diaphragm to the pubic rami in the axial plane a t 5 mm thick sections. Reconstructed images are reviewed on the computer in the coronal plane. FINDINGS: Limited CT sections are obtained the lung bases. There is some consolidation along the posterior dep endent right lung base. Air bronchograms are present. Correlate for atelectasis. Pneumonia could be c onsidered. Some minimal compressive atelectasis likely present at the left lung base. Coronary arter y calcification is present. CT ABDOMEN: Liver: There is extensive diffuse small rounded hypodensities throughout the left and right lobe live r suggestive for multiple metastatic lesions. Findings are new interval finding from 09/22/2022. Spleen: Normal Pancreas: Normal Adrenal glands: The adrenal glands are normal. Gallbladder: Gallstones present. Kidneys: No masses are evident. No hydronephrosis is present. No cysts are present. Delayed images were obtained through the kidneys, which remain unremarkable. Aorta: Vascular calcification is within the aorta. Some mild fusiform prominence of the distal abdom inal aorta may be present. Inferior vena cava: Normal. CT PELVIS: Loops of bowel within the abdomen and pelvis are normal. The study is without oral contrast limit ing bowel evaluation. Fecal debris is throughout the colon. Appendix: Normal as visualized. Urinary bladder: Normal. Genitourinary structures: Prostate appears normal. Osseous structures: No suspicious lytic or sclerotic lesions. IMPRESSIONS: 1. Extensive 1 to 2 cm nodules diffusely throughout the left and right lobes of the liver suspicious for metastatic disease. Additional workup is recommended.
--- NOTE | 2022-12-21 14:51 | P.PN ---
Subjective Progress Note Date: 12/21/22 Principal diagnosis: abdominal pain At today's visit patient is resting comfortably in bedside chair. at bedside. Patient reports abdominal pain is unchanged but is controlled with IV pain meds. Vinay nausea vomiting. Objective - Vital Signs Vital signs: Vital Signs Temp 97.5 F L 12/21/22 13:09 Pulse 64 12/21/22 13:09 Resp 17 12/21/22 13:09 BP 133/74 12/21/22 13:09 Pulse Ox 92 L 12/21/22 13:09 FiO2 Intake & Output 12/20/22 12/21/22 12/21/22 18:59 06:59 18:59 Intake Total 1250 Output Total 1000 Balance 250 Intake: Intake, IV Titration 1250 Amount Sodium Chloride 0.9% 1, 1250 000 ml @ 125 mls/hr IV . Q8H [facility] Rx#:[id number] Output: Urine 1000 Other: Voiding Method Urinal Urinal Urinal # Voids 3 1 # Bowel Movements 1 - Constitutional General appearance: Present: no acute distress, obese - EENT Eyes: Present: anicteric sclerae, EOMI ENT: Present: hearing grossly normal - Respiratory Details: breathing is even and unlabored - Cardiovascular Details: skin is warm and dry - Gastrointestinal General gastrointestinal: Present: distended - Integumentary Integumentary: Absent: cyanotic - Neurologic Neurologic Comment(s): grossly intact - Musculoskeletal Musculoskeletal: Present: strength equal bilaterally - Psychiatric Psychiatric: Present: A&O x's 3, appropriate affect, intact judgment & insight - Labs CBC & Chem 7: 12/21/22 05:44 12/21/22 05:44 Labs: Abnormal Lab Results - Last 24 Hours (Table) 12/18/22 12/20/22 12/20/22 Range/Units 11:38 09:21 09:21 Plt Count (150-450) k/uL Lymphocytes # (1.0-4.8) k/uL BUN (9-20) mg/dL Glucose (74-99) mg/dL POC Glucose (mg/dL) (70-110) mg/dL AST (17-59) U/L ALT (4-49) U/L Alkaline Phosphatase (38-126) U/L Total Protein (6.3-8.2) g/dL Albumin (3.5-5.0) g/dL Rzvjr-8-Pxqfaqiqr 0.41 H (0.10-0.40) d/dL Igfqq-6-Kzxuggtco 1.33 H (0.60-1.00) d/dL Carcinoembryonic Ag 4441.0 H (0.0-4.9) ng/mL CA 19-9 Antigen 69.5 H (0.0-34.9) U/mL 12/20/22 12/20/22 12/21/22 Range/Units 17:04 20:17 05:44 Plt Count 119 L (150-450) k/uL Lymphocytes # 0.8 L (1.0-4.8) k/uL BUN (9-20) mg/dL Glucose (74-99) mg/dL POC Glucose (mg/dL) 114 H 178 H (70-110) mg/dL AST (17-59) U/L ALT (4-49) U/L Alkaline Phosphatase (38-126) U/L Total Protein (6.3-8.2) g/dL Albumin (3.5-5.0) g/dL Alavu-8-Zyffhkoqa (0.10-0.40) d/dL Snyje-3-Zapritjnt (0.60-1.00) d/dL Carcinoembryonic Ag (0.0-4.9) ng/mL CA 19-9 Antigen (0.0-34.9) U/mL 12/21/22 12/21/22 12/21/22 Range/Units 05:44 07:27 12:19 Plt Count (150-450) k/uL Lymphocytes # (1.0-4.8) k/uL BUN 24 H (9-20) mg/dL Glucose 120 H (74-99) mg/dL POC Glucose (mg/dL) 118 H 137 H (70-110) mg/dL AST 110 H (17-59) U/L ALT 90 H (4-49) U/L Alkaline Phosphatase 160 H (38-126) U/L Total Protein 6.1 L (6.3-8.2) g/dL Albumin 3.2 L (3.5-5.0) g/dL Muxpa-2-Lktkyiaww (0.10-0.40) d/dL Kydie-4-Wqtwzinum (0.60-1.00) d/dL Carcinoembryonic Ag (0.0-4.9) ng/mL CA 19-9 Antigen (0.0-34.9) U/mL Microbiology - Last 24 Hours (Table) 12/20/22 11:55 Gram Stain - Preliminary Sputum Sputum Culture - Preliminary 12/18/22 12:08 Blood Culture - Preliminary Blood - Imaging and Cardiology bone scan reviewed Assessment and Plan (1) Hypercalcemia Current Visit: Yes Status: Acute Priority: High Code(s): E83.52 - HYPERCALCEMIA SNOMED Code(s): 49497878 Plan: Hypercalcemia: -Upon arrival Calcium 13.0. S/p zometa infusion and 1 dose calcitonin. Calcium stable, 9.8 today. PTH low, 5.4. PTHrP pending -CTA chest revealed 1.5 cm pulmonary nodule in the left lower lobe that is unchanged and been being followed outpatient. Gallbladder ultrasound revealed no distention or gallstones. Wall thicknesses is upper limits of normal measuring 3 mm. No pericholecystic fluid seen. Sonographic Louie sign was negative. Per ER note, CT AP was obtained at [facility] revealing cirrhotic morphology of the liver. Cholelithiasis. No signs of cholecystitis. -LFTs elevated. Lipase normal. Bilirubin normal. Hx Etoh. Pt recently quit drinking, approx 7 weeks ago. -Denies constitutional symptoms and personal history of cancer. Father had history of pancreatic cancer. - reports recent finding of left knee fracture without any known injury, concerning for pathological fracture. Bone scan revealed marked heterogeneous uptake involving the bilateral rib cage, vertebral column, pelvis, and calvarium appears to correspond to abnormal marrow appearance of the visualized osseous structures by CT scans on 12/18 and 12/17. -Tumor markers ordered. CEA elevated at 4441. AFP and CA 19-9 normal. Discussed with patent and that CEA is non-diagnostic of colon cancer, but with symptoms of abdominal pain/distention and hypercalcemia and elevated CEA, these findings are very concerning for malignancy, but imaging thus far has not shown any new masses/lesions that we can target for biopsy -Will obtain repeat CT AP with contrast -GI and surgery consulted, HIDA scan and abdominal US ordered. If ascites is n oted on imaging, will obtain paracentesis with cytology -PET scan scheduled for pierre from his PCP, if patient is discharged recommended to keep apt. If still hospitalized, will reschedule upon discharge -SPEP and immunofixation non-specific, reporting difficult to exclude a small IgM paraprotein. IgM, IgG, and IgA WNL. Serum K/L light chains pending -Discussed with patient and spouse findings and concerns for malignancy and need for further workup. Patient and are agreeable to proceed with further imaging/testing
--- NOTE | 2022-12-21 15:27 | P.PN ---
Subjective Progress Note Date: 12/21/22 Principal diagnosis: ?Cholecystitis , Pneumonia Patient is a 67-year-old male with a past medical history significant for hypertension hyperlipidemia NH COPD coronary artery disease and DVT presenting to the [facility] for evaluation of diffuse pain patient compl aining of pain to the left shoulder area as well as to the upper abdominal area , Patient did have a gallbladder ultrasound that shows mild thickening but no gallstones CT angiogram of the chest did shows a right lower lobe infiltrate concerning for possible pneumonia. On today's evaluation that is 12/21/2022, patient remains to be febrile, patient denies any worsening bilateral rib cage pain , the patient did have a cough with some sputum production however he was able to provide any sputum sample. Denies having any nausea or vomiting no abdominal pain and no diarrhea has been reported Objective - Vital Signs Vital signs: Vital Signs Temp 97.5 F L 12/21/22 13:09 Pulse 64 12/21/22 13:09 Resp 17 12/21/22 13:09 BP 133/74 12/21/22 13:09 Pulse Ox 92 L 12/21/22 13:09 FiO2 Intake & Output 12/20/22 12/21/22 12/21/22 18:59 06:59 18:59 Intake Total 1250 Output Total 1000 Balance 250 Intake: Intake, IV Titration 1250 Amount Sodium Chloride 0.9% 1, 1250 000 ml @ 125 mls/hr IV . Q8H [facility] Rx#:[id number] Output: Urine 1000 Other: Voiding Method Urinal Urinal Urinal # Voids 3 1 # Bowel Movements 1 - Exam GENERAL DESCRIPTION: Elderly male lying in bed in no distress RESPIRATORY SYSTEM: Unlabored breathing , decreased breath sounds at bases HEART: S1 S2 regular rate and rhythm ,no loud murmurs ABDOMEN: Soft , no tenderness EXTREMITIES: No edema feet - Labs CBC & Chem 7: 12/21/22 05:44 12/21/22 05:44 Labs: Abnormal Lab Results - Last 24 Hours (Table) 12/18/22 12/20/22 12/20/22 Range/Units 11:38 09:21 09:21 Plt Count (150-450) k/uL Lymphocytes # (1.0-4.8) k/uL BUN (9-20) mg/dL Glucose (74-99) mg/dL POC Glucose (mg/dL) (70-110) mg/dL AST (17-59) U/L ALT (4-49) U/L Alkaline Phosphatase (38-126) U/L Total Protein (6.3-8.2) g/dL Albumin (3.5-5.0) g/dL Pndbn-4-Xamezbrul 0.41 H (0.10-0.40) d/dL Rjbcu-4-Mwqlsqnur 1.33 H (0.60-1.00) d/dL Carcinoembryonic Ag 4441.0 H (0.0-4.9) ng/mL CA 19-9 Antigen 69.5 H (0.0-34.9) U/mL 12/20/22 12/20/22 12/21/22 Range/Units 17:04 20:17 05:44 Plt Count 119 L (150-450) k/uL Lymphocytes # 0.8 L (1.0-4.8) k/uL BUN (9-20) mg/dL Glucose (74-99) mg/dL POC Glucose (mg/dL) 114 H 178 H (70-110) mg/dL AST (17-59) U/L ALT (4-49) U/L Alkaline Phosphatase (38-126) U/L Total Protein (6.3-8.2) g/dL Albumin (3.5-5.0) g/dL Pyudc-7-Lrzlgirva (0.10-0.40) d/dL Nfpip-2-Yvltvatmc (0.60-1.00) d/dL Carcinoembryonic Ag (0.0-4.9) ng/mL CA 19-9 Antigen (0.0-34.9) U/mL 12/21/22 12/21/22 12/21/22 Range/Units 05:44 07:27 12:19 Plt Count (150-450) k/uL Lymphocytes # (1.0-4.8) k/uL BUN 24 H (9-20) mg/dL Glucose 120 H (74-99) mg/dL POC Glucose (mg/dL) 118 H 137 H (70-110) mg/dL AST 110 H (17-59) U/L ALT 90 H (4-49) U/L Alkaline Phosphatase 160 H (38-126) U/L Total Protein 6.1 L (6.3-8.2) g/dL Albumin 3.2 L (3.5-5.0) g/dL Lhtnj-4-Jtovwktjh (0.10-0.40) d/dL Afkab-2-Jegvnjqdf (0.60-1.00) d/dL Carcinoembryonic Ag (0.0-4.9) ng/mL CA 19-9 Antigen (0.0-34.9) U/mL Microbiology - Last 24 Hours (Table) 12/20/22 11:55 Gram Stain - Preliminary Sputum Sputum Culture - Preliminary 12/18/22 12:08 Blood Culture - Preliminary Blood Assessment and Plan (1) Pneumonia Current Visit: Yes Status: Acute Code(s): J18.9 - PNEUMONIA, UNSPECIFIED ORGANISM SNOMED Code(s): 460369325 Plan: 1patient was in the hospital generalized body aches has been complaining of pa in mostly to the bilateral rib cage area and to the posterior shoulder patient did have mildly elevated liver enzymes however ultrasound did show some mild wall thickness but no gallstones or any pericholecystic fluid patient was mildly tender in the right upper quadrant area underlying cholecystitis less likely but not entirely excluded 2-patient did have some shortness of breath and a cough and did have a consolidation seen on the CT angiogram of the chest concerning for possible pneumonia 3- patient CRP and procalcitonin mildly elevated , sputum cultures are currently pending, currently work-up is in progress for hypercalcemia concerning for possible malignancy and the patient is currently waiting for CT abdominal pelvis to be completed 4we will continue patient on Zosyn while awaiting for the cultures to be finalize Dictation was produced using [email or web address] dictation software. please excuse any grammatical, word or spelling errors. Time with Patient: Less than 30
--- NOTE | 2022-12-21 16:37 | P.CONS ---
History of Present Illness - Reason for Consult Consult date: 12/21/22 Elevated CEA, GI malignancy Requesting physician: Bouchra Gomez - Chief Complaint Abdominal pain - History of Present Illness This is a pleasant 67-year-old male with a past medical history including alcohol abuse, peripheral arterial disease, DVT, COPD who had presented to the emergency department with complaints of abdominal pain. Patient had initially called his primary care physician and sent him to [facility], there he had labs showing elevated calcium as well as a CT of the abdomen and pelvis which reported cirrhotic morphology of liver. Cholelithiasis. No signs of cholecystitis. Emphysematous changes of the lungs. He was transferred to [facility] for hypercalcemia and abdominal pain. He states that he has abdominal pain across his upper abdomen, he is taking pain medication regularly while here in the hospital. Denies any associated nausea or vomiting. States abdominal pain started about 5 days ago. Denies any previous history of known liver disease. States he was started on a water pill and he has had some decreased distention in his abdomen as well as swelling in his legs. Patient had been a heavy drinker for many years used to drink daily, however had cut back to drinking about a case of beer. He did however quit about 5 weeks ago. On admission he had an ultrasound of the gallbladder which reported enlarged liver, no focal liver lesions seen. Gallbladder normally distended. No gallstones identified. Wall thickness upper limits of normal measuring 3 mm. No. Clear cystic fluid seen. Sonographic Louie sign negative. Multiple consultants were added including general surgery for abdominal pain who is worki ng patient up for gallbladder, pulmonology for patient's COPD, nephrology for hypercalcemia, oncology for hypercalcemia. Gastroenterology was consulted for elevated CEA, questionable GI malignancy. Patient reports no previous colonoscopy, no previous history of known liver disease. Labs WBC 8.2 hemoglobin 14 hematocrit 43 platelet count 119,000 sodium 138 potassium 4.6 BUN 24 creatinine 1.0 calcium 9.8 total bilirubin 0.4 AST 110 ALT 90 alkaline phosphatase 160 CEA 4441.0, a CA-19-9 69.5, AFP tumor marker less than 3. Review of Systems REVIEW OF SYSTEMS: CARDIOPULMONARY: No chest pain, patient has shortness of breath. Lower extremity swelling. Gastrointestinal: Abdominal pain along the upper abdomen. No nausea or vomiting. No hematemesis, coffee-ground emesis. No rectal bleeding, or melena. GENITOURINARY: No dysuria or hematuria. MUSCULOSKELETAL: Reports normal range of motion., Joint pain. SKIN: No rashes. No jaundice. ENDOCRINE: No chills, fevers. No excessive weight gain or loss. No polydipsia or polyuria. PSYCHIATRIC: Unremarkable. NEUROLOGY: No change in mental status. Denies dizziness, headache. ENT: Vision unremarkable. CONSTITUTIONAL: No recent weight loss. No fever, chills, night sweats. Past Medical History Past Medical History: Coronary Artery Disease (CAD), COPD, CVA/TIA, Deep Vein Thrombosis (DVT), Hyperlipidemia, Hypertension, Myocardial Infarction (HI), Osteoarthritis (OA), Vascular Disorder Additional Past Medical History / Comment(s): PAD, dvt left leg, COVID 02/2021, TIA-no residual effects, gallstones, kidney stones Last Myocardial Infarction Date:: 04/20/20 History of Any Multi-Drug Resistant Organisms: None Reported Past Surgical History: Heart Catheterization With Stent, Hernia Repair, Joint Replacement, Orthopedic Surgery Additional Past Surgical History / Comment(s): abd. aortogram 09/04/20, L Fem- pop bypass with stent,x2 christy carotid endarterectomy, christy knee arthroscopy, rt hip replacement, one cardiac stent, surgery in October 2021 L lower extrem runoff with ballon angioplasty. Past Anesthesia/Blood Transfusion Reactions: No Reported Reaction Date of Last Stent Placement:: 08/2017 Past Psychological History: No Psychological Hx Reported Smoking Status: Former smoker Past Alcohol Use History: Daily Additional Past Alcohol Use History / Comment(s): quit smoking 2008, smoked 30-4 0 yrs, 1 PPD Past Drug Use History: None Reported - Past Family History Father Family Medical History: Cancer Additional Family Medical History / Comment(s): lung Brother(s) Family Medical History: Cancer Son(s) Family Medical History: Cancer Medications and Allergies Home Medications Medication Instructions Recorded Confirmed Type Gabapentin [Neurontin] 600 mg PO BID 04/21/15 12/17/22 History HYDROcodone/APAP 10-325MG [[place] 1 tab PO QID PRN 04/21/15 12/17/22 History 10-325] EPINEPHrine (Auto Inject) [Epipen] 0.3 mg IM ONCE PRN 05/25/19 12/17/22 History Rivaroxaban [Xarelto] 2.5 mg PO BID 04/21/20 12/17/22 History Biotin 5 mg PO HS 09/01/20 12/17/22 History Ezetimibe [Zetia] 10 mg PO DAILY 09/01/20 12/17/22 History Metoprolol Tartrate [Lopressor] 25 mg PO BID 09/01/20 12/17/22 History Albuterol Sulfate [Ventolin HFA] 2 puff INHALATION RT-BID PRN 02/03/21 12/17/22 History Budesonide/Formoterol Fumarate 2 puff INHALATION RT-BID 02/03/21 12/17/22 H istory [Symbicort 160-4.5 Mcg Inhaler] Thiamine [Vitamin B-1] 100 mg PO DAILY #30 tab 02/05/21 12/17/22 Rx Baclofen [Lioresal] 20 mg PO BID 10/20/21 12/17/22 History Clopidogrel [Plavix] 75 mg PO HS 10/20/21 12/17/22 History Rosuvastatin Calcium [Crestor] 40 mg PO HS 10/20/21 12/17/22 History Aspirin [Adult Low Dose Aspirin EC] 81 mg PO DAILY 10/14/22 12/17/22 History DULoxetine HCL [Cymbalta] 30 mg PO BID 12/17/22 12/17/22 History Losartan [Cozaar] 50 mg PO DAILY 12/17/22 12/17/22 History Nitroglycerin Sl Tabs [Nitrostat] 0.4 mg SL Q5M PRN 12/17/22 12/17/22 History Sennosides-Docusate Sodium 2 tab PO BID 12/17/22 12/17/22 History [Senokot-S] amLODIPine [Norvasc] 10 mg PO HS 12/17/22 12/17/22 History predniSONE See Taper PO DAILY 12/17/22 12/17/22 History Allergies Allergy/AdvReac Type Severity Reaction Status Date / Time venom-honey bee Allergy Anaphylaxis Verified 12/17/22 22:28 [bee venom (honey bee)] Physical Exam Vitals: Vital Signs Temp Pulse Resp BP Pulse Ox 12/21/22 09:01 96 12/21/22 07:25 97.3 F L 68 17 148/77 94 L 12/21/22 01:10 97.7 F 75 18 116/66 93 L 12/20/22 20:05 18 12/20/22 19:19 97.4 F L 89 20 116/71 90 L 12/20/22 13:04 97.4 F L 67 22 156/78 91 L Intake and Output 12/20/22 12/21/22 12/21/22 22:59 06:59 14:59 Intake Total 1250 Output Total 200 800 Balance -200 450 Intake: Intake, IV Titration 1250 Amount Sodium Chloride 0.9% 1, 1250 000 ml @ 125 mls/hr IV . Q8H [facility] Rx#:[id number] Output: Urine 200 800 Other: Voiding Method Urinal # Voids 3 # Bowel Movements 1 General appearance: The patient is alert, oriented, appears in no acute distress. HET: Head is normocephalic and atraumatic. Conjunctiva pink. Sclera anicteric. Neck: Supple without lymphadenopathy. Trachea midline. Heart: S1 S2. Regular rate and rhythm. Lungs: Diminished. Abdomen: Soft, upper abdominal tenderness, distended, obese. No guarding or rigidity. Skin: No rashes. No jaundice. Extremities: Normal skin color and turgor. Bilateral pedal edema. Neurological: No focal deficits. Alert and oriented x3. Results CBC & Chem 7: 12/21/22 05:44 12/21/22 05:44 Labs: Abnormal Lab Results - Last 24 Hours (Table) 12/17/22 12/18/22 12/20/22 Range/Units 21:55 11:38 06:33 WBC 10.83 H (4.50-10.00) X 10*3/uL Hgb 15.1 H (12.0-15.0) d/dL MCV 98.3 H (80.0-97.0) FL Plt Count 132 L (140-440) X 10*3/uL Neutrophils # 9.46 H (1.80-7.70) X 10*3/uL Lymphocytes # 0.71 L (0.90-5.00) X 10*3/uL Eosinophils # 0 L (0.04-0.35) X 10*3/uL Carbon Dioxide (21.6-31.8) mmol/L Anion Gap (4.00-12.00) mmol/L BUN (9.0-27.0) mg/dL BUN/Creatinine Ratio (12.00-20.00) Ratio Glucose (70-110) mg/dL POC Glucose (mg/dL) (70-110) mg/dL Calcium (8.7-10.3) mg/dL AST (14-35) U/L ALT (10-49) U/L Alkaline Phosphatase (41-126) U/L Total Protein (6.3-8.2) g/dL Albumin (3.8-4.9) d/dL Albumin/Globulin Ratio (1.60-3.17) Ratio Udqpn-2-Hwszdqkxg 0.41 H (0.10-0.40) d/dL Uplsd-9-Ioyuftudl 1.33 H (0.60-1.00) d/dL Carcinoembryonic Ag (0.0-4.9) ng/mL CA 19-9 Antigen (0.0-34.9) U/mL Vitamin D 25-Hydroxy 11.4 L (30.0-100.0) ng/mL 12/20/22 12/20/22 12/20/22 Range/Units 06:33 09:21 09:21 WBC (4.50-10.00) X 10*3/uL Hgb (12.0-15.0) d/dL MCV (80.0-97.0) FL Plt Count (140-440) X 10*3/uL Neutrophils # (1.80-7.70) X 10*3/uL Lymphocytes # (0.90-5.00) X 10*3/uL Eosinophils # (0.04-0.35) X 10*3/uL Carbon Dioxide 20.4 L (21.6-31.8) mmol/L Anion Gap 14.60 H (4.00-12.00) mmol/L BUN 31.4 H (9.0-27.0) mg/dL BUN/Creatinine Ratio 26.17 H (12.00-20.00) Ratio Glucose 115 H (70-110) mg/dL POC Glucose (mg/dL) (70-110) mg/dL Calcium 12.6 H (8.7-10.3) mg/dL AST 125 H (14-35) U/L ALT 103 H (10-49) U/L Alkaline Phosphatase 176 H (41-126) U/L Total Protein (6.3-8.2) g/dL Albumin 3.7 L (3.8-4.9) d/dL Albumin/Globulin Ratio 1.28 L (1.60-3.17) Ratio Ogjii-7-Bxdliaumo (0.10-0.40) d/dL Zitia-8-Ijtwspkuq (0.60-1.00) d/dL Carcinoembryonic Ag 4441.0 H (0.0-4.9) ng/mL CA 19-9 Antigen 69.5 H (0.0-34.9) U/mL Vitamin D 25-Hydroxy (30.0-100.0) ng/mL 12/20/22 12/20/22 12/20/22 Range/Units 11:59 17:04 20:17 WBC (4.50-10.00) X 10*3/uL Hgb (12.0-15.0) d/dL MCV (80.0-97.0) FL Plt Count (140-440) X 10*3/uL Neutrophils # (1.80-7.70) X 10*3/uL Lymphocytes # (0.90-5.00) X 10*3/uL Eosinophils # (0.04-0.35) X 10*3/uL Carbon Dioxide (21.6-31.8) mmol/L Anion Gap (4.00-12.00) mmol/L BUN (9.0-27.0) mg/dL BUN/Creatinine Ratio (12.00-20.00) Ratio Glucose (70-110) mg/dL POC Glucose (mg/dL) 113 H 114 H 178 H (70-110) mg/dL Calcium (8.7-10.3) mg/dL AST (14-35) U/L ALT (10-49) U/L Alkaline Phosphatase (41-126) U/L Total Protein (6.3-8.2) g/dL Albumin (3.8-4.9) d/dL Albumin/Globulin Ratio (1.60-3.17) Ratio Rseld-2-Bbotgvirj (0.10-0.40) d/dL Lylwl-8-Zpjwnebqu (0.60-1.00) d/dL Carcinoembryonic Ag (0.0-4.9) ng/mL CA 19-9 Antigen (0.0-34.9) U/mL Vitamin D 25-Hydroxy (30.0-100.0) ng/mL 12/21/22 12/21/22 12/21/22 Range/Units 05:44 05:44 07:27 WBC (4.50-10.00) X 10*3/uL Hgb (12.0-15.0) d/dL MCV (80.0-97.0) FL Plt Count 119 L (140-440) X 10*3/uL Neutrophils # (1.80-7.70) X 10*3/uL Lymphocytes # 0.8 L (0.90-5.00) X 10*3/uL Eosinophils # (0.04-0.35) X 10*3/uL Carbon Dioxide (21.6-31.8) mmol/L Anion Gap (4.00-12.00) mmol/L BUN 24 H (9.0-27.0) mg/dL BUN/Creatinine Ratio (12.00-20.00) Ratio Glucose 120 H (70-110) mg/dL POC Glucose (mg/dL) 118 H (70-110) mg/dL Calcium (8.7-10.3) mg/dL AST 110 H (14-35) U/L ALT 90 H (10-49) U/L Alkaline Phosphatase 160 H (41-126) U/L Total Protein 6.1 L (6.3-8.2) g/dL Albumin 3.2 L (3.8-4.9) d/dL Albumin/Globulin Ratio (1.60-3.17) Ratio Oicfb-1-Pdqmiiyxd (0.10-0.40) d/dL Kfewm-4-Gbtowctnt (0.60-1.00) d/dL Carcinoembryonic Ag (0.0-4.9) ng/mL CA 19-9 Antigen (0.0-34.9) U/mL Vitamin D 25-Hydroxy (30.0-100.0) ng/mL Microbiology - Last 24 Hours (Table) 12/20/22 11:55 Gram Stain - Preliminary Sputum Sputum Culture - Preliminary 12/18/22 12:08 Blood Culture - Preliminary Blood Comments: Nuclear med bone scan reports marked heterogeneous uptake involving the bilateral rib cage, vertebral column, pelvis and calvarium appears to correspond to abnormal marrow appearance of the visualized osseous structures by CT scan 12/18/2022 and 12/17/2022. Could be metabolic or on the basis of occult malignancy. Recommend workup to exclude underlying malignancy. CT scan - abdomen: report reviewed (Extensive 1-2 cm nodules diffusely throu ghout the left and right lobes of the liver suspicious for metastatic disease. Additional workup is recommended.) Assessment and Plan (1) Liver lesion Narrative/Plan: 67-year-old female who presented to [facility] for abdominal pain and was transferred to this facility for abdominal pain and hypercalcemia. He had multiple blood work ordered noting elevated CEA and CA-19-[address] of the abdomen and pelvis concerning for multiple 1-2 cm liver lesions likely consistent with malignancy. Patient has long-standing history of alcoholism, quit drinking about 5 weeks ago. Denies previous history of liver disease. Complaining of abdominal pain which is in the upper abdomen, radiating into his back. He also had a bone scan done today showing abnormal uptake in multiple areas of his body including rib cage. Likely dealing with metastatic disease, possible source colon. Patient has never had colonoscopy. States he's had cold guard in the past. Discussed with oncology and they recommend proceeding with liver biopsy. Current Visit: Yes Status: Acute Code(s): K76.9 - LIVER DISEASE, UNSPECIFIED SNOMED Code(s): 353209417 (2) Elevated tumor markers Current Visit: Yes Status: Acute Code(s): R97.8 - OTHER ABNORMAL TUMOR MARKERS SNOMED Code(s): 928486756 (3) Abdominal pain Current Visit: Yes Status: Acute Code(s): R10.9 - UNSPECIFIED ABDOMINAL PAIN SNOMED Code(s): 86800898 (4) Hypercalcemia Current Visit: Yes Status: Acute Priority: High Code(s): E83.52 - HYPERCALCEMIA SNOMED Code(s): 57044412 Plan: 1. Continue symptomatic and supportive care 2. Abdominal ultrasound to assess for possible ascites 3. Continue pain medication as needed 4. Discussed with oncology proceeding with colonoscopy versus liver biopsy, they are recommending liver biopsy at this time 5. Hold anticoagulation 6. Continue with recommendations from oncology Thank you for this consultation, we will continue to follow. Dr. Erica Haro I agree with the dictator's note, documented as a scribe by Savannah Laughlin.
[2022-12-21 17:06] LABS: Glucose,Whole Blood 123 mg/dL (70-110)
[2022-12-21 18:34] LABS: Vitamin D, 1, 25-Dihydroxy <5 pg/mL (20 - 79)
--- NOTE | 2022-12-21 18:59 | US ---
EXAMINATION TYPE: US abdomen limited DATE OF EXAM: 12/21/2022 COMPARISON: 12/21/2022 same day CLINICAL INDICATION: Male, 67 years old with history of evaluate liver cirrhosis, evaluate for ascite s; cirrhosis exam limited due to body habitus. TECHNIQUE: Multiple sonographic images of the right upper quadrant are obtained. FINDINGS: EXAM MEASUREMENTS: Liver Length: 18 cm Gallbladder Wall: .5 cm CBD: 0.7 cm Right Kidney: 11.2 x 5.8 x 3.7 cm Pancreas: Obscured by bowel gas Liver: Heterogenous nodularity. Multiple nodular-like densities as seen on prior CT. Gallbladder: limited due to bowel gas. Evidence for sonographic Louie's sign: No CBD: limited Right Kidney: No hydronephrosis or masses seen IMPRESSION: 1. No evidence for acute process. 2. Nodular contour to liver compatible with cirrhosis. Nonspecific nodular changes could be related to portal hypertension/regenerative nature of the liver parenchyma versus underlying infiltrative HCC which is felt to be less likely.
[2022-12-21 20:16] LABS: Glucose,Whole Blood 158 mg/dL (70-110)
[2022-12-21] MEDS: oxyCODONE ER 10 MG TAB.ER.12H PO SCH (20:58)
[2022-12-21] MEDS: amLODIPine 10 MG TAB PO SCH (20:58)
[2022-12-21] MEDS: ATORVASTATIN 80 MG TAB PO SCH (21:00)
[2022-12-22] MEDS: PIPERACILLIN-TAZOBACTAM 3.375 GM in SODIUM CHLORIDE 0.9% 100 ML IVPB SCH ×2 (00:43→09:42)
[2022-12-22] MEDS: methylPREDNISolone SOD SUCCI 125 MG/2 ML VIAL IV SCH ×2 (00:43→05:09)
[2022-12-22] MEDS: SODIUM CHLORIDE 0.9% 1,000 ML IV SCH ×3 (00:51→13:54)
[2022-12-22] MEDS: MORPHINE SULFATE 4 MG/ML SYRINGE IVP PRN ×3 (02:48→21:05)
[2022-12-22 07:09] LABS: Glucose,Whole Blood 126 mg/dL (70-110)
[2022-12-22] MEDS: INSULIN ASPART (NovoLOG) 100 UNIT/ML VIAL SQ SCH ×4 (08:10→20:48)
[2022-12-22] MEDS: SYMBICORT 160-4.5 MCG INHALER INHALATION SCH ×2 (08:31→20:59)
[2022-12-22] MEDS: SENNOSIDES-DOCUSATE SODIUM 1 EACH TAB PO SCH ×2 (09:27→20:08)
[2022-12-22] MEDS: PANTOPRAZOLE 40 MG/10 ML VIAL IV SCH ×2 (09:27→20:07)
[2022-12-22] MEDS: BACLOFEN 10 MG TAB PO SCH ×2 (09:28→20:07)
[2022-12-22] MEDS: predniSONE 10 MG TAB PO SCH (09:28)
[2022-12-22] MEDS: GABAPENTIN 300 MG CAP PO SCH ×2 (09:28→20:07)
[2022-12-22] MEDS: DULoxetine HCL 30 MG CAPSULE.DR PO SCH ×2 (09:28→20:07)
[2022-12-22] MEDS: HYDROcodone/APAP 10-325MG 1 EACH TAB PO PRN ×2 (09:28→15:54)
[2022-12-22] MEDS: HEPARIN SODIUM,PORCINE/PF 5,000 UNIT/0.5 ML SYRINGE SQ SCH ×3 (09:29→20:20)
[2022-12-22] MEDS: LOSARTAN 50 MG TAB PO SCH (09:29)
[2022-12-22] MEDS: EZETIMIBE 10 MG TAB PO SCH (09:29)
[2022-12-22] MEDS: THIAMINE 100 MG TAB PO SCH (09:29)
[2022-12-22] MEDS: METOPROLOL TARTRATE 25 MG TAB PO SCH ×2 (09:29→20:07)
[2022-12-22] MEDS: oxyCODONE ER 10 MG TAB.ER.12H PO SCH ×2 (09:29→20:08)
[2022-12-22] MEDS ORDERED: FUROSEMIDE 10 MG/ML 4 ML VIAL IV STA (10:30)
--- NOTE | 2022-12-22 12:22 | P.PN ---
Subjective Progress Note Date: 12/22/22 67-year-old male patient was transferred to us from [facility] for diffuse pain. The pain is mainly across his chest and upper abdomen and across the rib cage addition to chronic back pain. Is known to have chronic dyspnea and the patient is noted COPD and a left lung pulmonary nodule that has been followed up on outpatient basis. Initially went to [facility] and his calcium level was noted to be elevated. Based on his ongoing symptoms, he was referred to us. His current calcium level is at 13. He did not have any previous issues with hypercalcemia. Is known to have COPD, pulmonary nodule, coronary artery disease and extensive peripheral vascular disease and the patie nt has undergone previous vascular bypass surgery and stenting to the lower extremities. He is also known to have previous history of DVT. Maintain on long-term anticoagulants. At the same time, the patient has hypertension, hyperlipidemia, obesity, chronic back pain and a recent MRI from August 2022 showed wedging of the L2 spine in the order of 15% without any acute fractures. There is also multilevel spondylitic changes and mildly prominent narrowing due to facet arthropathy and disc space narrowing at the level of L4-L5 and old compression fracture the level of L2. Mild edema in the anterior L3 vertebral and posterior L5 vertebral and there is no evidence of any significant lumbar st enosis. The computed tomography scan of the abdomen and pelvis that was done in 09/22/2022 showed moderate to severe narrowing throughout the bilateral external iliac arteries and a stent in the superficial femoral artery was patent on the left. There was cholelithiasis and moderate atherosclerotic changes throughout the abdominal aorta and colonic diverticulosis. There are atelectatic changes in the right posterior base. The abdomen is gravid 7.6, hemoglobin is 15.4 and platelet count is 135. LFTs are abnormal with a AST of 105, ALT 121 and alkaline phosphatase of 193. Bilirubin is at 0.5. Covid 19 testing is negative. Creatinine is at 1.1. On 12/19/2022, the patient is stable without any change in his condition. On 12/19/2022, the patient is stable without any changes condition. Calcium level today is at 12.8. Awaiting further workup. Remains on IV fluids and Zosyn. Remains on anticoagulation with is xarelto The patient is seen today 12/20/2022 in follow-up on the regular medical floor. He is awake and alert in no acute distress. Resting fairly comfortably in bed. Still having some bilateral chest wall discomfort and rib pain. A culture revealing no growth to date. Sodium 143. Potassium 4.1. Bicarb 20. BUN 31. Creatinine 1.2. Glucose 115. AST 125. ALT 103. Pro-calcitonin 0.11. Continue bronchodilators and steroids. Antibiotics in the form of Zosyn. Anticoagulated with Xarelto. Receiving normal saline at 75 ML's per hour. The patient is seen today 12/21/2022 in follow-up on the regular medical floor. He is currently sitting up in bed. Awake and alert in no acute distress. Maintaining O2 saturations in the 90s on 4 L nasal cannula. Afebrile. Hemodynamically stable. Still with some bilateral rib pain. Bone scan did reveal marketed heterogenous uptake involving the bilateral rib cage, vertebral column, pelvis and calvarium appears to correspond to abnormal marrow appearance of the visualized osseous structures on CAT scan. Suspect occult malignancy. Blood culture reveals no growth. Sputum culture revealed no growth. White count 8.2. Hemoglobin 14.1. Platelets 119. Sodium 138. Potassium 4.6. Bicarb 28. BUN 24. Creatinine 1.07. Glucose 120. AST 110. ALT 90. Carcinoembryonic antigen 4441. CA 199 antigen 69.5. Remains on DuoNeb inhalations, Symbicort, IV Solu-Medrol. Antiemetics in the form of Zosyn. Anti coagulated with Xarelto. The patient is seen today 12/22/2022 in follow-up on the regular medical floor. He is awake and alert in no acute distress. In taking O2 saturations in the 90s on 2 L/m per nasal cannula. Computed tomography scan of the abdomen and pelvis revealed extensive 1-2 cm nodules diffusely throughout the left and right lobes of the liver suspicious for metastatic disease. Ultrasound of the liver revealed no acute process. There is a nodular contour to the liver compatible with cirrhosis. Nonspecific nodular changes could be related to portal hypertension/regenerative nature the liver parenchymal versus underlying infiltrative HCC which is felt to be less likely. Blood cultures reveal no growth. Sputum culture revealed no growth. Blood glucose 126.. Remains on Du oNeb inhalations, Symbicort, Solu-Medrol. Heparin for DVT prophylaxis. The plan is for colonoscopy. Anticoagulants on hold. Objective - Vital Signs Vital signs: Vital Signs Temp 97.7 F 12/22/22 07:05 Pulse 66 12/22/22 07:05 Resp 17 12/22/22 07:05 BP 158/74 12/22/22 07:05 Pulse Ox 95 12/22/22 08:35 FiO2 Intake & Output 12/21/22 12/22/22 12/22/22 18:59 06:59 18:59 Intake Total 590 Output Total 300 1900 Balance -300 -1310 Intake: Oral 590 Output: Urine 300 1900 Other: Voiding Method Urinal Urinal # Voids 1 - Exam GENERAL EXAM: Alert, 67-year-old male, resting in bed, on 2 liters nasal cannula, comfortable in no apparent distress. HEAD: Normocephalic. EYES: Normal reaction of pupils, equal size. NOSE: Clear with pink turbinates. THROAT: No erythema or exudates. NECK: No masses, no JVD. CHEST: No chest wall deformity. Bilateral chest wall pain LUNGS: Equal air entry with no crackles, wheeze, rhonchi or dullness. CVS: S1 and S2 normal with no audible murmur, regular rhythm. ABDOMEN: No hepatosplenomegaly, normal bowel sounds, no guarding or rigidity. SPINE: No scoliosis or deformity SKIN: No rashes CENTRAL NERVOUS SYSTEM: No focal deficits, tone is normal in all 4 extremities. EXTREMITIES: There is no peripheral edema. No clubbing, no cyanosis. Peripheral pulses are intact. - Labs CBC & Chem 7: 12/21/22 05:44 12/21/22 05:44 Labs: Abnormal Lab Results - Last 24 Hours (Table) 12/17/22 12/21/22 12/21/22 Range/Units 21:55 12:19 17:05 POC Glucose (mg/dL) 137 H 123 H (70-110) mg/dL Vit D 1,25-Dihydroxy <5 L (20 - 79) pg/mL 12/21/22 12/22/22 Range/Units 20:15 07:07 POC Glucose (mg/dL) 158 H 126 H (70-110) mg/dL Vit D 1,25-Dihydroxy (20 - 79) pg/mL Microbiology - Last 24 Hours (Table) 12/20/22 11:55 Gram Stain - Final Sputum Sputum Culture - Final 12/18/22 12:08 Blood Culture - Preliminary Blood Assessment and Plan Assessment: Diffuse skeletal pain involving the chest wall and back. Bone scan did reveal marked heterogenous uptake involving the bilateral rib cage, vertebral column, pelvis and calvarium appears to correspond to abnormal marrow appearance of the visualized osseous structures on CAT scan. Suspect malignancy. Carcinoembryonic antigen 4441. CA 199 antigen 69.5. Plan is for colonoscopy Hypercalcemia. Received Zometa. Calcium level is down to 9.8. Intact PTH low at 5.4. Acute hypoxemic respiratory failure secondary to an acute exacerbation of chronic obstructive pulmonary disease Left lower lobe pulmonary nodule measuring 1.5 cm, will need an outpatient PET C T and further investigation. Probable metastatic disease to the lung. Coronary artery disease Vascular disease with a previous fem-pop bypass surgery Bilateral carotid endarterectomies Coronary artery disease and coronary stenting Previous history of CVA Previous history of DVT of the left lower extremity Previous history of Covid 19 infection in February 2021 Hypertension Hyperlipidemia Abnormal LFTs with cholelithiasis without evidence of cholecystitis History of nephrolithiasis Plan: The patient was seen and evaluated CT abdomen and pelvis, ultrasound, labs and medications reviewed Possible colonoscopy in a.m. Discontinue IV Solu-Medrol Initiate prednisone 30 mg daily Continue bronchodilators Continue to hold anticoagulants Heparin for DVT prophylaxis Titrate down the FiO2 as tolerated We will continue to follow I have personally seen and examined the patient, performed the documentation and the assessment and plan as written. Number of minutes spent on the visit: 10.
[2022-12-22 12:30] LABS: Free Kappa Lt Chain Qnt, Serum 1.23 mg/dL (0.33-1.94); Free Lambda Lt Chain Qnt, Seru 0.97 mg/dL (0.57-2.63)
[2022-12-22 12:56] LABS: Glucose,Whole Blood 93 mg/dL (70-110)
--- NOTE | 2022-12-22 13:16 | P.PN ---
Subjective Progress Note Date: 12/22/22 Principal diagnosis: abdominal pain At today's visit patient is resting comfortably in bedside chair. at bedside. Patient reports abdominal pain is unchanged, but oral pain medications are not helping to control the pain, but he has not used IV pain meds today. Nursing is aware of pain, and is giving IV pain med for breakthrough pain. He also reports increased leg swelling today. IV fluids decreased to 50ml/hr and 40mg IV lasix has been given. Objective - Vital Signs Vital signs: Vital Signs Temp 97.7 F 12/22/22 07:05 Pulse 66 12/22/22 07:05 Resp 17 12/22/22 07:05 BP 158/74 12/22/22 07:05 Pulse Ox 95 12/22/22 08:35 FiO2 Intake & Output 12/21/22 12/22/22 12/22/22 18:59 06:59 18:59 Intake Total 590 Output Total 300 1900 Balance -300 -1310 Intake: Oral 590 Output: Urine 300 1900 Other: Voiding Method Urinal Urinal # Voids 1 - Constitutional General appearance: Present: no acute distress, obese - EENT Eyes: Present: anicteric sclerae, EOMI ENT: Present: hearing grossly normal - Respiratory Details: breathing is even and unlabored - Cardiovascular Details: skin warm and dry - Peripheral edema leg Peripheral Edema: bilateral: 1+ - Gastrointestinal General gastrointestinal: Present: distended - Integumentary Integumentary: Absent: cyanotic, jaundiced - Neurologic Neurologic Comment(s): grossly intact - Musculoskeletal Musculoskeletal: Present: generalized weakness - Psychiatric Psychiatric: Present: A&O x's 3, appropriate affect, intact judgment & insight - Labs CBC & Chem 7: 12/21/22 05:44 12/21/22 05:44 Labs: Abnormal Lab Results - Last 24 Hours (Table) 12/17/22 12/21/22 12/21/22 Range/Units 21:55 17:05 20:15 POC Glucose (mg/dL) 123 H 158 H (70-110) mg/dL Vit D 1,25-Dihydroxy <5 L (20 - 79) pg/mL 12/22/22 Range/Units 07:07 POC Glucose (mg/dL) 126 H (70-110) mg/dL Vit D 1,25-Dihydroxy (20 - 79) pg/mL Microbiology - Last 24 Hours (Table) 12/20/22 11:55 Gram Stain - Final Sputum Sputum Culture - Final 12/18/22 12:08 Blood Culture - Preliminary Blood - Imaging and Cardiology US - abdomen: report reviewed Assessment and Plan (1) Hypercalcemia Current Visit: Yes Status: Acute Priority: High Code(s): E83.52 - HYPERCA LCEMIA SNOMED Code(s): 70187151 Plan: Hypercalcemia: -Upon arrival Calcium 13.0. S/p zometa infusion and 1 dose calcitonin. Hypercalcemia resolved. Calcium 9.8. PTH low, 5.4. PTHrP pending -CTA chest revealed 1.5 cm pulmonary nodule in the left lower lobe that is unchanged and been being followed outpatient. Gallbladder ultrasound revealed no distention or gallstones. Wall thicknesses is upper limits of normal measuring 3 mm. No pericholecystic fluid seen. Sonographic Louie sign was negative. Per ER note, CT AP was obtained at [facility] revealing cirrhotic morphology of the liver. Cholelithiasis. No signs of cholecystitis. -LFTs elevated. Lipase normal. Bilirubin normal. Hx Etoh. Pt recently quit drinking, approx 7 weeks ago. -Denies constitutional symptoms and personal history of cancer. Father had history of pancreatic cancer. - reports recent finding of left knee fracture without any known injury, concerning for pathological fracture. Bone scan revealed marked heterogeneous uptake involving the bilateral rib cage, vertebral column, pelvis, and calvarium appears to correspond to abnormal marrow appearance of the visualized osseous structures by CT scans on 12/18 and 12/17. -Tumor markers ordered. CEA elevated at 4441. AFP and CA 19-9 normal. Discussed with patent and that CEA is non-diagnostic of colon cancer, but with symptoms of abdominal pain/distention, hypercalcemia and elevated CEA, these findings are very concerning for GI malignancy -Repeat CT AP with contrast revealed extensive 1-2 cm nodules diffusely throughout the left and right lobes of the liver suspicious for metastatic disea se. -GI and surgery consulted, HIDA scan and abdominal US ordered. Abdominal ultrasound revealed no evidence for acute process. Nodular contour liver compatible with cirrhosis. -IR consult placed for liver biopsy. Spoke with IR nurse, per interventional radiologist biopsy cannot be done for 6 days due to aspirin administration. Spoke with GI team. Dr. Haro will proceed with colonoscopy with biopsy tomorrow. Will await findings. If biopsy is not able to be obtained, will proceed with IR biopsy of liver on 01/06. -Upon review of CT scan and clinical findings, IR consult placed for diagnostic paracentesis. Spoke with Dr. Shipley, and after further review of imaging he reports there is no fluid within abdomen for procedure -PET scan scheduled for 12/24 from his PCP, if patient is discharged recommended to keep apt. If he is still hospitalized, will reschedule upon discharge -SPEP and immunofixation non-specific, reporting difficult to exclude a small IgM paraprotein. IgM, IgG, and IgA WNL. Serum K/L light chains pending -Discussed with patient and spouse findings and concerns for malignancy and plan of care as stated above. Patient and are agreeable to proceed with further imaging/testing Abdominal pain: -R/t underlying likely malignancy -Oral and IV pain medications ordered. Will continue to monitor with plans to titrate to oral regimen for discharge -Continue on senokot-S daily for prevention of opiate-induced constipation
--- NOTE | 2022-12-22 14:48 | P.PN ---
Subjective Progress Note Date: 12/22/22 CHIEF COMPLAINT: Abdominal pain HISTORY OF PRESENT ILLNESS: Patient complains of both right upper quadrant and left upper quadrant abdominal pain, rib cage pain and back pain. Patient denies any nausea or vomiting. Did have a bowel movement yesterday. Liver biopsy and paracentesis have been ordered by oncology service. Liver mass is being planned to be done outpatient because of aspirin. Abdominal ultrasound no evidence for acute process. Nodular contour to the liver compatible with cirrhosis. Nonspecific nodular changes could be related to portal hypertension/degenerative nature of the liver parenchyma versus underlying HCC. Computed tomography scan abdomen and pelvis extensive 1-2 cm nodules diffusely throughout the left and right lobes of the liver suspicious for metastatic disease. Additional workup is recommended. PHYSICAL EXAM: VITAL SIGNS: Reviewed GENERAL: Well-developed in no acute distress. HEENT: No sclera icterus. Extraocular movements grossly intact. Moist buccal mucosa. Head is atraumatic, normocephalic. Hears conversational speech. No nasal drainage. NECK: Supple without lymphadenopathy. CHEST: Non-labored respirations and equal bilateral excursions. CARDIOVASCULAR: Palpable 2+ radial pulses. ABDOMEN: Soft. distended. Tenderness to palpation of the right upper quadrant and left upper quadrant and rib cage MUSCULOSKELETAL: No clubbing or cyanosis. NEUROLOGIC: No focal or lateralizing signs. Cranial nerves II through XII grossly intact. PSYCH: Appropriate affect. Alert and oriented to person, place and time. SKIN: Well perfused. Good skin turgor. ASSESSMENT: 1. Bilateral upper abdominal pain/ rib cage pain 2. Gallstones 3. Mildly elevated LFTs 4. Hypercalcemia 5. COPD exacerbation 6. Elevated CEA, CA-19-9 tumor marker levels 7. Liver nodules noted on CT PLAN: -Recommend to continue oncology workup -No surgical intervention planned at this time -HIDA scan that was previously ordered will be canceled. -Patient scheduled for EGD and colonoscopy tomorrow with GI service -Continue supportive care Physician Senior Statistician note has been reviewed by physician. Signing provider agrees with the documented findings, assessment, and plan of care. Objective - Vital Signs Vital signs: Vital Signs Temp 97.7 F 12/22/22 07:05 Pulse 66 12/22/22 07:05 Resp 17 12/22/22 07:05 BP 158/74 12/22/22 07:05 Pulse Ox 95 12/22/22 08:35 FiO2 Intake & Output 12/21/22 12/22/22 12/22/22 18:59 06:59 18:59 Intake Total 590 Output Total 300 1900 Balance -300 -1310 Intake: Oral 590 Output: Urine 300 1900 Other: Voiding Method Urinal Urinal # Voids 1 - Labs CBC & Chem 7: 12/21/22 05:44 12/21/22 05:44 Labs: Abnormal Lab Results - Last 24 Hours (Table) 12/17/22 12/21/22 12/21/22 Range/Units 21:55 12:19 17:05 POC Glucose (mg/dL) 137 H 123 H (70-110) mg/dL Vit D 1,25-Dihydroxy <5 L (20 - 79) pg/mL 12/21/22 12/22/22 Range/Units 20:15 07:07 POC Glucose (mg/dL) 158 H 126 H (70-110) mg/dL Vit D 1,25-Dihydroxy (20 - 79) pg/mL Microbiology - Last 24 Hours (Table) 12/20/22 11:55 Gram Stain - Final Sputum Sputum Culture - Final 12/18/22 12:08 Blood Culture - Preliminary Blood
[2022-12-22] MEDS ORDERED: PEG 3350 (236 GM/BTL) + LYTES 4,000 ML BOTTLE PO ONE (15:00)
--- NOTE | 2022-12-22 15:02 | P.PN ---
Subjective Progress Note Date: 12/22/22 Principal diagnosis: Liver lesions This is a pleasant 67-year-old male with a past medical history including alcohol abuse, peripheral arterial disease, DVT, COPD who had presented to the emergency department with complaints of abdominal pain. Patient had initially called his primary care physician and sent him to [facility], there he had labs showing elevated calcium as well as a CT of the abdomen and pelvis which reported cirrhotic morphology of liver. Cholelithiasis. No signs of cholecystitis. Emphysematous changes of the lungs. He was transferred to [facility] for hypercalcemia and abdominal pain. He states that he has abdominal pain across his upper abdomen, he is taking pain medication regularly while here in the hospital. Denies any associated nausea or vomiting. States abdominal pain started about 5 days ago. Denies any previous history of known liver disease. States he was started on a water pill and he has had some decreased distention in his abdomen as well as swelling in his legs. Patient had been a heavy drinker for many years used to drink daily, however had cut back to drinking about a case of beer. He did however quit about 5 weeks ago. On admission he had an ultrasound of the gallbladder which reported enlarged l iver, no focal liver lesions seen. Gallbladder normally distended. No gallstones identified. Wall thickness upper limits of normal measuring 3 mm. No. Clear cystic fluid seen. Sonographic Louie sign negative. Multiple consultants were added including general surgery for abdominal pain who is working patient up for gallbladder, pulmonology for patient's COPD, nephrology for hypercalcemia, oncology for hypercalcemia. Gastroenterology was consulted for elevated CEA, questionable GI malignancy. Patient reports no previous colonoscopy, no previous history of known liver disease. Labs WBC 8.2 hemoglobin 14 hematocrit 43 platelet count 119,000 sodium 138 potassium 4.6 BUN 24 creatinine 1.0 calcium 9.8 total bilirubin 0.4 AST 110 ALT 90 alkaline phosphatase 160 CEA 4441.0, a CA-19-9 69.5, AFP tumor marker less than 3. 12/22/2022 Patient seen and examined today as a follow-up. Initially oncology recommended liver biopsy however interventional radiology recommends it being done outp atient as patient is on multiple blood thinners. Therefore oncology is recommending endoscopic evaluation. Patient denies any nausea or vomiting, he is tolerating regular diet. Abdominal pain somewhat better and controlled with pain medication. Also interventional radiology states that there is no fluid available for paracentesis. Objective - Vital Signs Vital signs: Vital Signs Temp 97.4 F L 12/22/22 12:53 Pulse 65 12/22/22 12:53 Resp 17 12/22/22 12:53 BP 140/72 12/22/22 12:53 Pulse Ox 94 L 12/22/22 12:53 FiO2 Intake & Output 12/21/22 12/22/22 12/22/22 18:59 06:59 18:59 Intake Total 590 Output Total 300 1900 Balance -300 -1310 Intake: Oral 590 Output: Urine 300 1900 Other: Voiding Method Urinal Urinal Urinal # Voids 1 - Exam General appearance: The patient is alert, oriented, appears in no acute di stress. HET: Head is normocephalic and atraumatic. Conjunctiva pink. Sclera anicteric. Neck: Supple without lymphadenopathy. Abdomen: Soft, upper abdominal tenderness, nondistended with bowel sounds. No guarding or rigidity. Extremities: Normal skin color and turgor. No pedal edema Skin: No rashes, no jaundice Neurological: No focal deficits. Alert and oriented. - Labs CBC & Chem 7: 12/21/22 05:44 12/21/22 05:44 Labs: Abnormal Lab Results - Last 24 Hours (Table) 12/17/22 12/21/22 12/21/22 Range/Units 21:55 17:05 20:15 POC Glucose (mg/dL) 123 H 158 H (70-110) mg/dL Vit D 1,25-Dihydroxy <5 L (20 - 79) pg/mL 12/22/22 Range/Units 07:07 POC Glucose (mg/dL) 126 H (70-110) mg/dL Vit D 1,25-Dihydroxy (20 - 79) pg/mL Microbiology - Last 24 Hours (Table) 12/20/22 11:55 Gram Stain - Final Sputum Sputum Culture - Final 12/18/22 12:08 Blood Culture - Preliminary Blood Assessment and Plan (1) Liver lesion Narrative/Plan: 67-year-old female who presented to [facility] for abdominal pain and was transferred to this facility for abdominal pain and hypercalcemia. He had multi ple blood work ordered noting elevated CEA and CA-19-[address] of the abdomen and pelvis concerning for multiple 1-2 cm liver lesions likely consistent with malignancy. Patient has long-standing history of alcoholism, quit drinking about 5 weeks ago. Denies previous history of liver disease. Complaining of abdominal pain which is in the upper abdomen, radiating into his back. He also had a bone scan done today showing abnormal uptake in multiple areas of his body including rib cage. Likely dealing with metastatic disease, possible source colon. Patient has never had colonoscopy. States he's had cold guard in the past. Discussed with oncology and they recommend proceeding with liver biopsy. Current Visit: Yes Status: Acute Code(s): K76.9 - LIVER DISEASE, UNSPECIFIED SNOMED Code(s): 114524593 (2) Elevated tumor markers Current Visit: Yes Status: Acute Code(s): R97.8 - OTHER ABNORMAL TUMOR MARKERS SNOMED Code(s): 980142881 (3) Abdominal pain Current Visit: Yes Status: Acute Code(s): R10.9 - UNSPECIFIED ABDOMINAL PAIN SNOMED Code(s): 29696787 (4) Hypercalcemia Current Visit: Yes Status: Acute Priority: High Code(s): E83.52 - HYPERCALCEMIA SNOMED Code(s): 45989677 Plan: 1. Continue symptomatic and supportive care 2. Interventional radiology consulted for liver biopsy, however due to patient's blood thinners they recommend outpatient 3. Continue pain medication as needed 4. Continue to hold anticoagulation 5. Clear liquid diet, nothing by mouth after midnight 6. Bowel prep this afternoon 7. Plan for EGD and colonoscopy tomorrow 8. Continue with recommendations from oncology Thank you for this consultation, we will continue to follow. Dr. Erica Haro I agree with the dictator's note, documented as a scribe by Savannah Laughlin.
[2022-12-22 17:33] LABS: Glucose,Whole Blood 146 mg/dL (70-110)
[2022-12-22] MEDS: amLODIPine 10 MG TAB PO SCH (20:07)
[2022-12-22 20:08] LABS: Glucose,Whole Blood 115 mg/dL (70-110)
[2022-12-22] MEDS: ATORVASTATIN 80 MG TAB PO SCH (20:08)
[2022-12-23] MEDS: MORPHINE SULFATE 4 MG/ML SYRINGE IVP PRN ×2 (02:42→06:43)
[2022-12-23 07:12] LABS: Glucose,Whole Blood 71 mg/dL (70-110)
[2022-12-23] MEDS: SYMBICORT 160-4.5 MCG INHALER INHALATION SCH ×2 (07:52→20:27)
[2022-12-23] MEDS ORDERED: MAGNESIUM CITRATE 296 ML BOTTLE PO ONE (08:00)
[2022-12-23] MEDS: INSULIN ASPART (NovoLOG) 100 UNIT/ML VIAL SQ SCH ×4 (08:37→22:15)
[2022-12-23] MEDS: LOSARTAN 50 MG TAB PO SCH (08:37)
[2022-12-23] MEDS: THIAMINE 100 MG TAB PO SCH (08:37)
[2022-12-23] MEDS: EZETIMIBE 10 MG TAB PO SCH (08:37)
[2022-12-23] MEDS: predniSONE 10 MG TAB PO SCH (08:37)
[2022-12-23] MEDS: DULoxetine HCL 30 MG CAPSULE.DR PO SCH ×2 (08:38→21:11)
[2022-12-23] MEDS: oxyCODONE ER 10 MG TAB.ER.12H PO SCH (08:38)
[2022-12-23] MEDS: GABAPENTIN 300 MG CAP PO SCH ×2 (08:38→21:11)
[2022-12-23] MEDS: METOPROLOL TARTRATE 25 MG TAB PO SCH ×2 (08:38→20:51)
[2022-12-23] MEDS: BACLOFEN 10 MG TAB PO SCH ×2 (08:38→21:12)
[2022-12-23] MEDS: PANTOPRAZOLE 40 MG/10 ML VIAL IV SCH ×2 (08:39→22:14)
[2022-12-23] MEDS: HYDROcodone/APAP 10-325MG 1 EACH TAB PO PRN (08:39)
[2022-12-23] MEDS: SENNOSIDES-DOCUSATE SODIUM 1 EACH TAB PO SCH ×2 (08:40→22:14)
[2022-12-23] MEDS: SODIUM CHLORIDE 0.9% 1,000 ML IV SCH (08:42)
[2022-12-23 09:07] LABS: BUN/Creat Ratio 27.57 Ratio (12.00-20.00); Blood Urea Nitrogen 19.3 mg/dL (9.0-27.0); Calcium 8.5 mg/dL (8.7-10.3); Carbon Dioxide 23.3 mmol/L (21.6-31.8); Chloride 104 mmol/L (96-109); Glucose 74 mg/dL (70-110); Potassium 3.5 mmol/L (3.5-5.5); Sodium 138 mmol/L (135-145)
[2022-12-23 10:41] LABS: Basophils # (A) 0.03 X 10*3/uL (0.00-0.10); Basophils % (A) 0.4 %; Eosinophils # (A) 0.07 X 10*3/uL (0.04-0.35); Eosinophils % (A) 0.9 %; HCT 41.7 % (39.6-50.0); HGB 13.6 d/dL (12.0-15.0); Lymphocytes # (A) 1.13 X 10*3/uL (0.90-5.00); Lymphocytes % (A) 13.8 %; MCH 31.6 pg (27.0-32.0); MCHC 32.6 d/dL (32.0-37.0); Mean Platelet Volume 10.1 FL (9.5-12.2); Monocytes % (A) 6.1 %; NRBC Per 100 WBC 0 X 10*3/uL (0.00-0.01); Neutrophils # (A) 6.34 X 10*3/uL (1.80-7.70); Neutrophils % (A) 77.5 %; Platelet Count 124 X 10*3/uL (140-440); RBC Morphology Normal (Normal); RDW 13.6 % (11.5-14.5); WBC 8.18 X 10*3/uL (4.50-10.00)
--- NOTE | 2022-12-23 11:00 | P.PN ---
Subjective Progress Note Date: 12/23/22 CHIEF COMPLAINT: Abdominal pain HISTORY OF PRESENT ILLNESS: Patient lying in bed comfortably after receiving pain medication. He does still complain of both right upper quadrant and left upper quadrant abdominal pain, rib cage pain and back pain. Patient denies any nausea or vomiting. He is scheduled for EGD and colonoscopy today with GI service. Afebrile. WBC is 8.18 Hgb 13.6 platelets 124 sodium is 138 potassium is 3.5 creatinine 0.7 PHYSICAL EXAM: VITAL SIGNS: Reviewed GENERAL: Well-developed in no acute distress. HEENT: No sclera icterus. Extraocular movements grossly intact. Moist buccal mucosa. Head is atraumatic, normocephalic. Hears conversational speech. No nasal drainage. NECK: Supple without lymphadenopathy. CHEST: Non-labored respirations and equal bilateral excursions. CARDIOVASCULAR: Palpable 2+ radial pulses. ABDOMEN: Soft. distended. Tenderness to palpation of the right upper quadrant and left upper quadrant and rib cage MUSCULOSKELETAL: No clubbing or cyanosis. NEUROLOGIC: No focal or lateralizing signs. Cranial nerves II through XII grossly intact. PSYCH: Appropriate affect. Alert and oriented to person, place and time. SKIN: Well perfused. Good skin turgor. ASSESSMENT: 1. Bilateral upper abdominal pain/ rib cage pain 2. Gallstones 3. Mildly elevated LFTs 4. Hypercalcemia 5. COPD exacerbation 6. Elevated CEA, CA-19-9 tumor marker levels 7. Liver nodules noted on CT PLAN: -Recommend to continue oncology workup -No surgical intervention planned at this time -HIDA scan canceled yesterday. Patient's symptoms are likely related to an oncological process and not related to the gallbladder -Patient scheduled for EGD and colonoscopy today with GI service -Continue supportive care -Surgical service will sign off. Please call with any questions or concerns. Physician Cook Enchilada note has been reviewed by physician. Signing provider agrees with the documented findings, assessment, and plan of care. Objective - Vital Signs Vital signs: Vital Signs Temp 97.7 F 12/23/22 07:20 Pulse 66 12/23/22 07:20 Resp 20 12/23/22 07:20 BP 120/60 12/23/22 07:20 Pulse Ox 93 L 12/23/22 07:52 FiO2 Intake & Output 12/22/22 12/23/22 12/23/22 18:59 06:59 18:59 Intake Total 600 0 Balance 600 0 Weight 99 kg Intake: Intake, IV Titration 600 Amount Sodium Chloride 0.9% 1, 600 000 ml @ 50 mls/hr IV . Q20H [facility] Rx#:[id number] Oral 0 Other: Voiding Method Urinal Urinal # Voids 5 # Bowel Movements 5 - Labs CBC & Chem 7: 12/23/22 05:25 12/23/22 05:25 Labs: Abnormal Lab Results - Last 24 Hours (Table) 12/22/22 12/22/22 12/23/22 Range/Units 17:32 20:06 05:25 RBC 4.30 L (4.40-5.60) X 10*6/uL Plt Count 124 L (140-440) X 10*3/uL BUN/Creatinine Ratio (12.00-20.00) Ratio POC Glucose (mg/dL) 146 H 115 H (70-110) mg/dL Calcium (8.7-10.3) mg/dL 12/23/22 Range/Units 05:25 RBC (4.40-5.60) X 10*6/uL Plt Count (140-440) X 10*3/uL BUN/Creatinine Ratio 27.57 H (12.00-20.00) Ratio POC Glucose (mg/dL) (70-110) mg/dL Calcium 8.5 L (8.7-10.3) mg/dL Microbiology - Last 24 Hours (Table) 12/20/22 11:55 Gram Stain - Final Sputum Sputum Culture - Final
--- NOTE | 2022-12-23 11:24 | P.PN ---
Subjective Progress Note Date: 12/23/22 67-year-old male patient was transferred to us from [facility] for diffuse pain. The pain is mainly across his chest and upper abdomen and across the rib cage addition to chronic back pain. Is known to have chronic dyspnea and the patient is noted COPD and a left lung pulmonary nodule that has been followed up on outpatient basis. Initially went to [facility] and his calcium level was noted to be elevated. Based on his ongoing symptoms, he was referred to us. His current calcium level is at 13. He did not have any previous issues with hypercalcemia. Is known to have COPD, pulmonary nodule, coronary artery disease and extensive peripheral vascular disease and the patie nt has undergone previous vascular bypass surgery and stenting to the lower extremities. He is also known to have previous history of DVT. Maintain on long-term anticoagulants. At the same time, the patient has hypertension, hyperlipidemia, obesity, chronic back pain and a recent MRI from August 2022 showed wedging of the L2 spine in the order of 15% without any acute fractures. There is also multilevel spondylitic changes and mildly prominent narrowing due to facet arthropathy and disc space narrowing at the level of L4-L5 and old compression fracture the level of L2. Mild edema in the anterior L3 vertebral and posterior L5 vertebral and there is no evidence of any significant lumbar st enosis. The computed tomography scan of the abdomen and pelvis that was done in 09/22/2022 showed moderate to severe narrowing throughout the bilateral external iliac arteries and a stent in the superficial femoral artery was patent on the left. There was cholelithiasis and moderate atherosclerotic changes throughout the abdominal aorta and colonic diverticulosis. There are atelectatic changes in the right posterior base. The abdomen is gravid 7.6, hemoglobin is 15.4 and platelet count is 135. LFTs are abnormal with a AST of 105, ALT 121 and alkaline phosphatase of 193. Bilirubin is at 0.5. Covid 19 testing is negative. Creatinine is at 1.1. On 12/19/2022, the patient is stable without any change in his condition. On 12/19/2022, the patient is stable without any changes condition. Calcium level today is at 12.8. Awaiting further workup. Remains on IV fluids and Zosyn. Remains on anticoagulation with is xarelto The patient is seen today 12/20/2022 in follow-up on the regular medical floor. He is awake and alert in no acute distress. Resting fairly comfortably in bed. Still having some bilateral chest wall discomfort and rib pain. A culture revealing no growth to date. Sodium 143. Potassium 4.1. Bicarb 20. BUN 31. Creatinine 1.2. Glucose 115. AST 125. ALT 103. Pro-calcitonin 0.11. Continue bronchodilators and steroids. Antibiotics in the form of Zosyn. Anticoagulated with Xarelto. Receiving normal saline at 75 ML's per hour. The patient is seen today 12/21/2022 in follow-up on the regular medical floor. He is currently sitting up in bed. Awake and alert in no acute distress. Maintaining O2 saturations in the 90s on 4 L nasal cannula. Afebrile. Hemodynamically stable. Still with some bilateral rib pain. Bone scan did reveal marketed heterogenous uptake involving the bilateral rib cage, vertebral column, pelvis and calvarium appears to correspond to abnormal marrow appearance of the visualized osseous structures on CAT scan. Suspect occult malignancy. Blood culture reveals no growth. Sputum culture revealed no growth. White count 8.2. Hemoglobin 14.1. Platelets 119. Sodium 138. Potassium 4.6. Bicarb 28. BUN 24. Creatinine 1.07. Glucose 120. AST 110. ALT 90. Carcinoembryonic antigen 4441. CA 199 antigen 69.5. Remains on DuoNeb inhalations, Symbicort, IV Solu-Medrol. Antiemetics in the form of Zosyn. Anti coagulated with Xarelto. The patient is seen today 12/22/2022 in follow-up on the regular medical floor. He is awake and alert in no acute distress. In taking O2 saturations in the 90s on 2 L/m per nasal cannula. Computed tomography scan of the abdomen and pelvis revealed extensive 1-2 cm nodules diffusely throughout the left and right lobes of the liver suspicious for metastatic disease. Ultrasound of the liver revealed no acute process. There is a nodular contour to the liver compatible with cirrhosis. Nonspecific nodular changes could be related to portal hypertension/regenerative nature the liver parenchymal versus underlying infiltrative HCC which is felt to be less likely. Blood cultures reveal no growth. Sputum culture revealed no growth. Blood glucose 126.. Remains on Du oNeb inhalations, Symbicort, Solu-Medrol. Heparin for DVT prophylaxis. The plan is for colonoscopy. Anticoagulants on hold. The patient is seen today 12/23/2022 in follow-up on the regular medical floor. He is sitting up in bed. Awake and alert in no acute distress. Stating his pain is well controlled currently. He is maintaining O2 saturations in the low 90s on 4 L/m per nasal cannula. Afebrile. Hemodynamically stable. Blood cultures revealed no growth. Sputum cultures revealed no growth. White count 8.1. Hemoglobin 13.6. Platelets 124. Sodium 1:30. Potassium 43.5. Bicarb 23 . BUN 19. Creatinine 0.7. Calcium 8.5. Awaiting EGD/colonoscopy today. Objective - Vital Signs Vital signs: Vital Signs Temp 97.7 F 12/23/22 07:20 Pulse 66 12/23/22 07:20 Resp 20 12/23/22 07:20 BP 120/60 12/23/22 07:20 Pulse Ox 93 L 12/23/22 07:52 FiO2 Intake & Output 12/22/22 12/23/22 12/23/22 18:59 06:59 18:59 Intake Total 600 0 Balance 600 0 Weight 99 kg Intake: Intake, IV Titration 600 Amount Sodium Chloride 0.9% 1, 600 000 ml @ 50 mls/hr IV . Q20H [facility] Rx#:[id number] Oral 0 Other: Voiding Method Urinal Urinal # Voids 5 # Bowel Movements 5 - Exam GENERAL EXAM: Alert, doesn't 67-year-old male, on 4 liters nasal cannula, fairly comfortable in no apparent distress. HEAD: Normocephalic. EYES: Normal reaction of pupils, equal size. NOSE: Clear with pink turbinates. THROAT: No erythema or exudates. NECK: No masses, no JVD. CHEST: No chest wall deformity. Bilateral chest wall pain LUNGS: Equal air entry with no crackles, wheeze, rhonchi or dullness. CVS: S1 and S2 normal with no audible murmur, regular rhythm. ABDOMEN: No hepatosplenomegaly, normal bowel sounds, no guarding or rigidity. SPINE: No scoliosis or deformity SKIN: No rashes CENTRAL NERVOUS SYSTEM: No focal deficits, tone is normal in all 4 extremities. EXTREMITIES: There is no peripheral edema. No clubbing, no cyanosis. Peripheral pulses are intact. - Labs CBC & Chem 7: 12/23/22 05:25 12/23/22 05:25 Labs: Abnormal Lab Results - Last 24 Hours (Table) 12/22/22 12/22/22 12/23/22 Range/Units 17:32 20:06 05:25 RBC 4.30 L (4.40-5.60) X 10*6/uL Plt Count 124 L (140-440) X 10*3/uL BUN/Creatinine Ratio (12.00-20.00) Ratio POC Glucose (mg/dL) 146 H 115 H (70-110) mg/dL Calcium (8.7-10.3) mg/dL 12/23/22 Range/Units 05:25 RBC (4.40-5.60) X 10*6/uL Plt Count (140-440) X 10*3/uL BUN/Creatinine Ratio 27.57 H (12.00-20.00) Ratio POC Glucose (mg/dL) (70-110) mg/dL Calcium 8.5 L (8.7-10.3) mg/dL Microbiology - Last 24 Hours (Table) 12/20/22 11:55 Gram Stain - Final Sputum Sputum Culture - Final Assessment and Plan Assessment: Diffuse skeletal pain involving the chest wall and back. Bone scan did reveal marked heterogenous uptake involving the bilateral rib cage, vertebral column, pelvis and calvarium appears to correspond to abnormal marrow appearance of the visualized osseous structures on CAT scan. Suspect malignancy. Carcinoembryonic antigen 4441. CA 199 antigen 69.5. Plan is for EGD/colonoscopy today Hypercalcemia. Received Zometa. Calcium level is down to 8.5. Acute hypoxemic respiratory failure secondary to an acute exacerbation of chronic obstructive pulmonary disease Left lower lobe pulmonary nodule measuring 1.5 cm, will need an outpatient PET CT and further investigation. Probable metastatic disease to the lung. Coronary artery disease Vascular disease with a previous fem-pop bypass surgery Bilateral carotid endarterectomies Coronary artery disease and coronary stenting Previous history of CVA Previous history of DVT of the left lower extremity Previous history of Covid 19 infection in February 2021 Hypertension Hyperlipidemia Abnormal LFTs with cholelithiasis without evidence of cholecystitis History of nephrolithiasis Plan: The patient was seen and evaluated Labs and medications reviewed Plan is for EGD/colonoscopy today Continue to hold anticoagulants Heparin for DVT prophylaxis Titrate down the FiO2 as tolerated We will continue to follow I have personally seen and examined the patient, performed the documentation and the assessment and plan as written. Number of minutes spent on the visit: 10.
[2022-12-23 12:21] LABS: Glucose,Whole Blood 75 mg/dL (70-110)
--- NOTE | 2022-12-23 13:34 | P.PN ---
Subjective Patient is seen for follow-up for hypercalcemia. PTH is appropriately suppressed. It appears to be secondary to underlying malignancy. Bone scan did show evidence of increased uptake on the ribs and vertebral column as well as the pelvis. 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 CT abdomen showed diffuse 1-2 cm nodules in the liver suspicious for metastatic disease. Calcium is 8.5 today. Patient received a dose of Zometa 4 mg on 12/19/2022. Scheduled for EGD and colonoscopy today. Objective - Vital Signs Vital signs: Vital Signs Temp 98.3 F 12/23/22 12:07 Pulse 64 12/23/22 12:07 Resp 20 12/23/22 12:07 BP 130/73 12/23/22 12:07 Pulse Ox 92 L 12/23/22 12:07 FiO2 Intake & Output 12/22/22 12/23/22 12/23/22 18:59 06:59 18:59 Intake Total 600 0 Balance 600 0 Weight 99 kg Intake: Intake, IV Titration 600 Amount Sodium Chloride 0.9% 1, 600 000 ml @ 50 mls/hr IV . Q20H [facility] Rx#:[id number] Oral 0 Other: Voiding Method Urinal Urinal Urinal # Voids 5 # Bowel Movements 5 - Exam Awake, comfortable, in no acute distress Examination of the heart S1 and S2 Examination the lungs decreased breath sounds at the bases Abdomen is soft, mild tenderness left upper abdomen Examination of lower extremity shows no significant edema CEMENTER exam grossly intact - Labs CBC & Chem 7: 12/23/22 05:25 12/23/22 05:25 Labs: Abnormal Lab Results - Last 24 Hours (Table) 12/22/22 12/22/22 12/23/22 Range/Units 17:32 20:06 05:25 RBC 4.30 L (4.40-5.60) X 10*6/uL Plt Count 124 L (140-440) X 10*3/uL BUN/Creatinine Ratio (12.00-20.00) Ratio POC Glucose (mg/dL) 146 H 115 H (70-110) mg/dL Calcium (8.7-10.3) mg/dL 12/23/22 Range/Units 05:25 RBC (4.40-5.60) X 10*6/uL Plt Count (140-440) X 10*3/uL BUN/Creatinine Ratio 27.57 H (12.00-20.00) Ratio POC Glucose (mg/dL) (70-110) mg/dL Calcium 8.5 L (8.7-10.3) mg/dL Microbiology - Last 24 Hours (Table) 12/20/22 11:55 Gram Stain - Final Sputum Sputum Culture - Final Assessment and Plan Assessment: 1. Hypercalcemia rule out underlying malignancy. PTH is appropriately suppressed. CEA is significantly elevated and patient is scheduled for abdominal CT today. 2. Left lower lobe pulmonary nodule 3. Multiple liver nodules suspicious of metastatic disease, scheduled for EGD and colonoscopy today Plan: Can DC IV fluids. We will sign off
[2022-12-23] MEDS ORDERED: PROPOFOL 10 MG/ML 20 ML VIAL IV ONE (13:40)
[2022-12-23] MEDS ORDERED: LIDOCAINE 2% INJ 20 MG/ML (2 ML VIAL) ONE (13:40)
[2022-12-23] MEDS ORDERED: SODIUM CHLORIDE 0.9% 500 ML 500 ML IV ONE ×2 (13:41→19:50)
--- NOTE | 2022-12-23 14:16 | P.PN ---
Subjective Progress Note Date: 12/22/22 Principal diagnosis: ?Cholecystitis , Pneumonia Patient is a 67-year-old male with a past medical history significant for hypertension hyperlipidemia MA COPD coronary artery disease and DVT presenting to the [facility] for evaluation of diffuse pain patient compl aining of pain to the left shoulder area as well as to the upper abdominal area , Patient did have a gallbladder ultrasound that shows mild thickening but no gallstones CT angiogram of the chest did shows a right lower lobe infiltrate concerning for possible pneumonia. On today's evaluation that is 12/22/2022, patient continues to be febrile, patient still complaining of bilateral rib cage pain though controlled with pain medication, the patient did have a cough no worsening, the patient denies having any nausea or vomiting no abdominal pain and no diarrhea has been reported Objective - Vital Signs Vital signs: Vital Signs Temp 97.7 F 12/22/22 07:05 Pulse 66 12/22/22 07:05 Resp 17 12/22/22 07:05 BP 158/74 12/22/22 07:05 Pulse Ox 95 12/22/22 08:35 FiO2 Intake & Output 12/21/22 12/22/22 12/22/22 18:59 06:59 18:59 Intake Total 590 Output Total 300 1900 Balance -300 -1310 Intake: Oral 590 Output: Urine 300 1900 Other: Voiding Method Urinal Urinal # Voids 1 - Exam GENERAL DESCRIPTION: Elderly male lying in bed in no distress RESPIRATORY SYSTEM: Unlabored breathing , decreased breath sounds at bases HEART: S1 S2 regular rate and rhythm ,no loud murmurs ABDOMEN: Soft , no tenderness EXTREMITIES: No edema feet - Labs CBC & Chem 7: 12/23/22 05:25 12/23/22 05:25 Labs: Abnormal Lab Results - Last 24 Hours (Table) 12/17/22 12/21/22 12/21/22 Range/Units 21:55 17:05 20:15 POC Glucose (mg/dL) 123 H 158 H (70-110) mg/dL Vit D 1,25-Dihydroxy <5 L (20 - 79) pg/mL 12/22/22 Range/Units 07:07 POC Glucose (mg/dL) 126 H (70-110) mg/dL Vit D 1,25-Dihydroxy (20 - 79) pg/mL Microbiology - Last 24 Hours (Table) 12/20/22 11:55 Gram Stain - Final Sputum Sputum Culture - Final 12/18/22 12:08 Blood Culture - Preliminary Blood Assessment and Plan (1) Pneumonia Current Visit: Yes Status: Acute Code(s): J18.9 - PNEUMONIA, UNSPECIFIED ORGANISM SNOMED Code(s): 511020565 Plan: 1patient was in the hospital generalized body aches has been complaining of pain mostly to the bilateral rib cage area and to the posterior shoulder patient did have mildly elevated liver enzymes however ultrasound did show some mild wall thickness but no gallstones or any pericholecystic fluid patient was mildly tender in the right upper quadrant area underlying cholecystitis less likely but not entirely excluded 2-patient did have some shortness of breath and a cough and did have a consolidation seen on the CT angiogram of the chest concerning for possible pneumonia 3- patient CRP and procalcitonin mildly elevated , sputum cultures are currently pending, currently work-up is in progress for hypercalcemia concerning for possible malignancy and the patient is currently waiting for colonoscopy for tissue diagnosis 4the patient Zosyn has been discontinued this morning by pulmonary patient will monitor closely off antibiotic therapy Dictation was produced using [employer] dictation software. please excuse any grammatical, word or spelling errors. Time with Patient: Less than 30
--- NOTE | 2022-12-23 14:17 | P.PN ---
Subjective Progress Note Date: 12/23/22 Principal diagnosis: ?Cholecystitis , Pneumonia Patient is a 67-year-old male with a past medical history significant for hypertension hyperlipidemia [place] COPD coronary artery disease and DVT presenting to the [facility] for evaluation of diffuse pain patient compl aining of pain to the left shoulder area as well as to the upper abdominal area , Patient did have a gallbladder ultrasound that shows mild thickening but no gallstones CT angiogram of the chest did shows a right lower lobe infiltrate concerning for possible pneumonia. On today's evaluation that is 12/23/2022, patient remains to be febrile, patient is breathing comfortably currently on folate and his current oxygen. Denies having any worsening chest pain or cough some nausea but no vomiting and no abdominal pain no diarrhea currently waiting for upper and lower GI Objective - Vital Signs Vital signs: Vital Signs Temp 98.3 F 12/23/22 12:07 Pulse 64 12/23/22 12:07 Resp 20 12/23/22 12:07 BP 130/73 12/23/22 12:07 Pulse Ox 92 L 12/23/22 12:07 FiO2 Intake & Output 12/22/22 12/23/22 12/23/22 18:59 06:59 18:59 Intake Total 600 0 Balance 600 0 Weight 99 kg Intake: Intake, IV Titration 600 Amount Sodium Chloride 0.9% 1, 600 000 ml @ 50 mls/hr IV . Q20H [facility] Rx#:[id number] Oral 0 Other: Voiding Method Urinal Urinal Urinal # Voids 5 # Bowel Movements 5 - Exam GENERAL DESCRIPTION: Elderly male lying in bed in no distress RESPIRATORY SYSTEM: Unlabored breathing , decreased breath sounds at bases HEART: S1 S2 regular rate and rhythm ,no loud murmurs ABDOMEN: Soft , no tenderness EXTREMITIES: No edema feet - Labs CBC & Chem 7: 12/23/22 05:25 12/23/22 05:25 Labs: Abnormal Lab Results - Last 24 Hours (Table) 12/22/22 12/22/22 12/23/22 Range/Units 17:32 20:06 05:25 RBC 4.30 L (4.40-5.60) X 10*6/uL Plt Count 124 L (140-440) X 10*3/uL BUN/Creatinine Ratio (12.00-20.00) Ratio POC Glucose (mg/dL) 146 H 115 H (70-110) mg/dL Calcium (8.7-10.3) mg/dL 12/23/22 Range/Units 05:25 RBC (4.40-5.60) X 10*6/uL Plt Count (140-440) X 10*3/uL BUN/Creatinine Ratio 27.57 H (12.00-20.00) Ratio POC Glucose (mg/dL) (70-110) mg/dL Calcium 8.5 L (8.7-10.3) mg/dL Assessment and Plan (1) Pneumonia Current Visit: Yes Status: Acute Code(s): J18.9 - PNEUMONIA, UNSPECIFIED ORGANISM SNOMED Code(s): 858443631 Plan: 1patient was in the hospital generalized body aches has been complaining of pain mostly to the bilateral rib cage area and to the posterior shoulder patient did have mildly elevated liver enzymes however ultrasound did show some mild wall thickness but no gallstones or any pericholecystic fluid patient was mildly tender in the right upper quadrant area underlying cholecystitis less likely but not entirely excluded 2-patient did have some shortness of breath and a cough and did have a consolidation seen on the CT angiogram of the chest concerning for possible pneumonia 3- patient CRP and procalcitonin mildly elevated , sputum cultures are currently pending, currently work-up is in progress for hypercalcemia concerning for possible malignancy and the patient is currently waiting for colonoscopy for tissue diagnosis 4the patient seems to be doing well off antibiotic therapy and be monitored closely Dictation was produced using [employer] dictation software. please excuse any grammatical, word or spelling errors. Time with Patient: Less than 30
--- NOTE | 2022-12-23 14:22 | P.PCN ---
Date of Procedure: 12/23/22 Procedure(s) Performed: Brief history: Patient is a pleasant 67-year-old white male admitted hospital with severe abdominal pain for the last few days duration. He did have CT of abdomen and pelvis done that showed multiple lesions in the liver suspicious for metastasis. He was noted have elevated CEA at 4000. Because of clinical suspicion for GI malignancy he is scheduled for an upper endoscopy as well as colonoscopy today. Procedure performed: Esophagogastroduodenoscopy Colonoscopy with biopsy and snare polypectomy Preoperative diagnosis: Elevated CEA Metastatic liver disease of unknown primary Anesthesia: MAC Procedure: After informed consent was obtained from the patient was brought into the endoscopy unit and IV sedation was administered by anesthesia under continuous monitoring. Initially upper endoscopy was done. The Olympus GF 160 video endoscope was inserted inserted into the mouth and esophagus intubated without any difficulty and was gradually advanced into the stomach and duodenum and carefully examined. The bulb and second part of the duodenum appeared normal. The scope was then withdrawn into the stomach adequately insufflated with air and upon careful examination the antrum and body, cardia and fundus appeared normal. The scope was then withdrawn into the esophagus. Small hiatal hernia noted. The GE junction was located at 40 cm to the incisors. It appeared irregular with no erythema erosions or ulcerations. Rest of the esophagus appeared normal. Patient tolerated the procedure well. At this time the patient continued to remain sedation. Initial digital rectal examination was normal. Olympus CF 160 video colonoscope was then inserted into the rectum and gradually advanced to the cecum with severe difficulty. Careful examination was performed as the scope was gradually being withdrawn. The prep was poor and several areas of the colon.. The cecum, a 5 limited polyp that was removed by cold biopsy. In the ascending colon there was a 1 cm polyp removed by snare polypectomy. Rest of the ascending colon, transverse colon, descending colon, sigmoid colon and rectum appeared normal. Scattered sigmoid diverticulosis. Retroflexion was performed in the rectum and no lesions were noted. Patient tolerated the procedure well. Impression: 1. Upper endoscopy revealed small hiatal hernia and mild gastritis 2. Colonoscopy revealed a 5 mm cecal polyp status post cold biopsy and 1 cm ascending colon polyp status post-polypectomy. No masses identified. Recommendations: Findings of this examination were discussed with the patient .. At this time will await biopsy results. He will need to be scheduled for a liver biopsy as a part of further workup
[2022-12-23 17:11] LABS: Glucose,Whole Blood 105 mg/dL (70-110)
--- NOTE | 2022-12-23 18:17 | P.PN ---
Subjective Progress Note Date: 12/23/22 Principal diagnosis: abdominal pain At today's visit patient is resting comfortably in bed. at bedside. Patient reports abdominal pain is unchanged. Plan to adjust pain med regimen. Reports lasix has improved leg swelling. Scheduled for egd/colonoscopy today with Dr. Haro. Objective - Vital Signs Vital signs: Vital Signs Temp 97.7 F 12/23/22 14:38 Pulse 57 L 12/23/22 16:35 Resp 20 12/23/22 14:38 BP 104/61 12/23/22 16:35 Pulse Ox 91 L 12/23/22 16:35 FiO2 Intake & Output 12/22/22 12/23/22 12/23/22 18:59 06:59 18:59 Intake Total 600 0 400 Balance 600 0 400 Weight 99 kg Intake: IV 400 Intake, IV Titration 600 Amount Sodium Chloride 0.9% 1, 600 000 ml @ 50 mls/hr IV . Q20H [facility] Rx#:[id number] Oral 0 Other: Voiding Method Urinal Urinal Urinal # Voids 5 # Bowel Movements 5 - Constitutional General appearance: Present: no acute distress, obese - EENT Eyes: Present: anicteric sclerae ENT: Present: hearing grossly normal - Respiratory Details: breathing is even and unlabored - Cardiovascular Details: skin warm and dry - Integumentary Integumentary: Absent: cyanotic, jaundiced - Neurologic Neurologic Comment(s): grossly intact - Musculoskeletal Musculoskeletal: Present: strength equal bilaterally - Psychiatric Psychiatric: Present: A&O x's 3, appropriate affect, intact judgment & insight - Labs CBC & Chem 7: 12/23/22 05:25 12/23/22 05:25 Labs: Abnormal Lab Results - Last 24 Hours (Table) 12/22/22 12/23/22 12/23/22 Range/Units 20:06 05:25 05:25 RBC 4.30 L (4.40-5.60) X 10*6/uL Plt Count 124 L (140-440) X 10*3/uL BUN/Creatinine Ratio 27.57 H (12.00-20.00) Ratio POC Glucose (mg/dL) 115 H (70-110) mg/dL Calcium 8.5 L (8.7-10.3) mg/dL Assessment and Plan (1) Hypercalcemia Current Visit: Yes Status: Acute Priority: High Code(s): E83.52 - HYPERCALCEMIA SNOMED Code(s): 11506573 (2) Liver lesion Current Visit: Yes Status: Acute Priority: High Code(s): K76.9 - LIVER DISEASE, UNSPECIFIED SNOMED Code(s): 036239316 Plan: Hypercalcemia/Liver lesion: -Upon arrival Calcium 13.0. S/p zometa infusion and 1 dose calcitonin. Hypercalcemia resolved. Calcium 8.5. PTH low, 5.4. PTHrP pending -CTA chest revealed 1.5 cm pulmonary nodule in the left lower lobe that is unchanged and been being followed outpatient. Gallbladder ultrasound revealed no distention or gallstones. Wall thicknesses is upper limits of normal measuring 3 mm. No pericholecystic fluid seen. Sonographic Louie sign was negative. Per ER note, CT AP was obtained at [facility] revealing cirrhotic morphology of the liver. Cholelithiasis. No signs of cholecystitis. -LFTs elevated. Lipase normal. Bilirubin normal. Hx Etoh. Pt recently quit drinking, approx 7 weeks ago. -Denies constitutional symptoms and personal history of cancer. Father had history of pancreatic cancer. - reports recent finding of left knee fracture without any known injury, concerning for pathological fracture. Bone scan revealed marked heterogeneous uptake involving the bilateral rib cage, vertebral column, pelvis, and calvarium appears to correspond to abnormal marrow appearance of the visualized osseous structures by CT scans on 12/18 and 12/17. -Tumor markers ordered. CEA elevated at 4441. AFP and CA 19-9 normal. Discussed with patent and that CEA is non-diagnostic of colon cancer, but with symptoms of abdominal pain/distention, hypercalcemia and elevated CEA, these findings are very concerning for GI malignancy -SPEP and immunofixation non-specific, reporting difficult to exclude a small IgM paraprotein. IgM, IgG, and IgA WNL. Serum K/L light chain ratio 1.26. No significant findings for underlying bone marrow etiology -Repeat CT AP with contrast revealed extensive 1-2 cm nodules diffusely throughout the left and right lobes of the liver suspicious for metastatic disease. Upon review of CT scan and clinical findings, IR consult placed for diagnostic paracentesis. Spoke with Dr. Shipley, and after further review of imaging he reports there is no fluid within abdomen for procedure -GI and surgery consulted, abdominal US ordered. Abdominal ultrasound revealed no evidence for acute process. Nodular contour liver compatible with cirrhosis. -IR consult placed for liver biopsy. Spoke with IR nurse, per interventional radiologist biopsy cannot be done for 6 days due to aspirin administration. Spoke with GI team. Dr. Haro will proceed with colonoscopy with biopsy. S/p egd/colonoscopy, spoke GI team, EGD clear, polyps noted on colonoscopy, biopsy obtained. No masses/abnormal lesions noted. Will proceed with IR biopsy of liver. -PET scan will be rescheduled upon discharge. -Discussed with patient and spouse findings and concerns for malignancy and plan of care as stated above. Abdominal pain: -R/t underlying likely malignancy -Pain medications adjusted. Will continue to monitor so patient on appropriate pain regimen upon discharge -Continue on senokot-S daily for prevention of opiate-induced constipation
[2022-12-23 20:14] LABS: Glucose,Whole Blood 128 mg/dL (70-110)
[2022-12-23] MEDS: amLODIPine 10 MG TAB PO SCH (20:50)
[2022-12-23] MEDS: HEPARIN SODIUM,PORCINE/PF 5,000 UNIT/0.5 ML SYRINGE SQ SCH (21:11)
[2022-12-23] MEDS: ATORVASTATIN 80 MG TAB PO SCH (21:11)
[2022-12-23] MEDS: oxyCODONE ER 15 MG TAB.ER.12H PO SCH (22:13)
--- NOTE | 2022-12-24 03:23 | P.PN ---
Subjective Progress Note Date: 12/20/22 67-year-old male was admitted to the hospital with complaints of abdominal pain and found to have cholelithiasis and cholecystitis. Patient also has hypercalcemia. 12/20/2022 Patient is currently lying in the bed. Awake alert and oriented x3. Anxious. Complains of both right upper and and left upper quadrant abdominal pain below the rib cage. Also complaining of back pain. No complaints of nausea vomiting. Patient underwent bone scan today. Due to hypercalcemia. Oncology and nephrology is on board. Laboratory data showed WBC 10.8 hemoglobin 15.1 and platelets 132 BUN 31.4 and creatinine 1.2 and bicarb level is 20.4 anion gap 14.6. Calcium level 12.6. Tumor markers were ordered. Current medications reviewed. Objective - Vital Signs Vital signs: Vital Signs Temp 97.4 F L 12/20/22 19:19 Pulse 89 12/20/22 19:19 Resp 20 12/20/22 19:19 BP 116/71 12/20/22 19:19 Pulse Ox 90 L 12/20/22 19:19 FiO2 Intake & Output 12/20/22 12/20/22 12/21/22 06:59 18:59 06:59 Output Total 525 Balance -525 Output: Urine 525 Other: Voiding Method Urinal Urinal # Voids 3 3 - Exam PHYSICAL EXAMINATION: Patient is lying in the bed comfortably, no acute distress, awake alert and oriented. Anxious.. HEENT: Normocephalic. Neck is supple. Pupils reactive. Nostrils clear. Oral cavity is moist. Neck reveals no JVD, carotid bruits, or thyromegaly. CHEST EXAMINATION: Trachea is central. Symmetrical expansion. Bibasilar diminished sounds.. CARDIAC: Normal S1, S2 with no gallops. No murmurs ABDOMEN: Soft. Bowel sounds present. Nontender. No organomegaly. No abdominal bruits. Extremities: reveal no edema. No clubbing or cyanosis Neurologically awake, alert, oriented x3 with well-coordinated movements. No focal deficits noted Skin: No rash or skin lesions. Psychiatric: Coperative. Nonsuicidal, Musculoskeletal: No joint swelling or deformity. Normal range of motion. - Labs CBC & Chem 7: 12/23/22 05:25 12/23/22 05:25 Labs: Abnormal Lab Results - Last 24 Hours (Table) 12/17/22 12/18/22 12/19/22 Range/Units 21:55 11:38 20:47 WBC (4.50-10.00) X 10*3/uL Hgb (12.0-15.0) d/dL MCV (80.0-97.0) FL Plt Count (140-440) X 10*3/uL Neutrophils # (1.80-7.70) X 10*3/uL Lymphocytes # (0.90-5.00) X 10*3/uL Eosinophils # (0.04-0.35) X 10*3/uL Carbon Dioxide (21.6-31.8) mmol/L Anion Gap (4.00-12.00) mmol/L BUN (9.0-27.0) mg/dL BUN/Creatinine Ratio (12.00-20.00) Ratio Glucose (70-110) mg/dL POC Glucose (mg/dL) 166 H (70-110) mg/dL Calcium (8.7-10.3) mg/dL AST (14-35) U/L ALT (10-49) U/L Alkaline Phosphatase (41-126) U/L Albumin (3.8-4.9) d/dL Albumin/Globulin Ratio (1.60-3.17) Ratio Rszsh-9-Cohdkajed 0.41 H (0.10-0.40) d/dL Voujy-2-Ylugjjkeg 1.33 H (0.60-1.00) d/dL Carcinoembryonic Ag (0.0-4.9) ng/mL CA 19-9 Antigen (0.0-34.9) U/mL Vitamin D 25-Hydroxy 11.4 L (30.0-100.0) ng/mL 12/20/22 12/20/22 12/20/22 Range/Units 00:31 06:33 06:33 WBC 10.83 H (4.50-10.00) X 10*3/uL Hgb 15.1 H (12.0-15.0) d/dL MCV 98.3 H (80.0-97.0) FL Plt Count 132 L (140-440) X 10*3/uL Neutrophils # 9.46 H (1.80-7.70) X 10*3/uL Lymphocytes # 0.71 L (0.90-5.00) X 10*3/uL Eosinophils # 0 L (0.04-0.35) X 10*3/uL Carbon Dioxide 20.4 L (21.6-31.8) mmol/L Anion Gap 14.60 H (4.00-12.00) mmol/L BUN 31.4 H (9.0-27.0) mg/dL BUN/Creatinine Ratio 26.17 H (12.00-20.00) Ratio Glucose 115 H (70-110) mg/dL POC Glucose (mg/dL) 125 H (70-110) mg/dL Calcium 12.6 H (8.7-10.3) mg/dL AST 125 H (14-35) U/L ALT 103 H (10-49) U/L Alkaline Phosphatase 176 H (41-126) U/L Albumin 3.7 L (3.8-4.9) d/dL Albumin/Globulin Ratio 1.28 L (1.60-3.17) Ratio Szipu-8-Vpexiafcq (0.10-0.40) d/dL Ylhbw-9-Mswtmwqiu (0.60-1.00) d/dL Carcinoembryonic Ag (0.0-4.9) ng/mL CA 19-9 Antigen (0.0-34.9) U/mL Vitamin D 25-Hydroxy (30.0-100.0) ng/mL 12/20/22 12/20/22 12/20/22 Range/Units 07:01 09:21 09:21 WBC (4.50-10.00) X 10*3/uL Hgb (12.0-15.0) d/dL MCV (80.0-97.0) FL Plt Count (140-440) X 10*3/uL Neutrophils # (1.80-7.70) X 10*3/uL Lymphocytes # (0.90-5.00) X 10*3/uL Eosinophils # (0.04-0.35) X 10*3/uL Carbon Dioxide (21.6-31.8) mmol/L Anion Gap (4.00-12.00) mmol/L BUN (9.0-27.0) mg/dL BUN/Creatinine Ratio (12.00-20.00) Ratio Glucose (70-110) mg/dL POC Glucose (mg/dL) 114 H (70-110) mg/dL Calcium (8.7-10.3) mg/dL AST (14-35) U/L ALT (10-49) U/L Alkaline Phosphatase (41-126) U/L Albumin (3.8-4.9) d/dL Albumin/Globulin Ratio (1.60-3.17) Ratio Sbzmv-4-Sstudxxrf (0.10-0.40) d/dL Ecxbf-6-Yyirtoala (0.60-1.00) d/dL Carcinoembryonic Ag 4441.0 H (0.0-4.9) ng/mL CA 19-9 Antigen 69.5 H (0.0-34.9) U/mL Vitamin D 25-Hydroxy (30.0-100.0) ng/mL 12/20/22 12/20/22 12/20/22 Range/Units 11:59 17:04 20:17 WBC (4.50-10.00) X 10*3/uL Hgb (12.0-15.0) d/dL MCV (80.0-97.0) FL Plt Count (140-440) X 10*3/uL Neutrophils # (1.80-7.70) X 10*3/uL Lymphocytes # (0.90-5.00) X 10*3/uL Eosinophils # (0.04-0.35) X 10*3/uL Carbon Dioxide (21.6-31.8) mmol/L Anion Gap (4.00-12.00) mmol/L BUN (9.0-27.0) mg/dL BUN/Creatinine Ratio (12.00-20.00) Ratio Glucose (70-110) mg/dL POC Glucose (mg/dL) 113 H 114 H 178 H (70-110) mg/dL Calcium (8.7-10.3) mg/dL AST (14-35) U/L ALT (10-49) U/L Alkaline Phosphatase (41-126) U/L Albumin (3.8-4.9) d/dL Albumin/Globulin Ratio (1.60-3.17) Ratio Gguyz-2-Foqikvnmj (0.10-0.40) d/dL Vubzy-9-Ialocsftq (0.60-1.00) d/dL Carcinoembryonic Ag (0.0-4.9) ng/mL CA 19-9 Antigen (0.0-34.9) U/mL Vitamin D 25-Hydroxy (30.0-100.0) ng/mL Microbiology - Last 24 Hours (Table) 12/18/22 12:08 Blood Culture - Preliminary Blood Assessment and Plan Assessment: Hypercalcemia and pain below the rib cage and also back pain. Magnesium work-up in process. COPD Left lower lobe pulmonary nodule measuring 1.5 cm. Outpatient PET scan recommended by pulmonary. Coronary artery disease with prior history of stent placement History of CVA Peripheral vascular disease with previous history of femoropopliteal bypass surgery. Bilateral carotid endarterectomies History of DVT left lower extremity History of CVA/TIA Hypertension Hyperlipidemia Elevated liver enzymes and cholelithiasis without evidence of cholecystitis. History of nephrolithiasis DVT prophylaxis Plan: Patient will be continued on IV steroids and pain management with [place]. Bone scan was ordered today. Oncology and nephrology and pulmonary is on board. Continue with [facility] and follow-up closely. Prognosis is guarded. Discussed with his at bedside in detail. Time with Patient: Greater than 30
--- NOTE | 2022-12-24 03:33 | P.PN ---
Subjective Progress Note Date: 12/21/22 67-year-old male was admitted to the hospital with complaints of abdominal pain and found to have cholelithiasis and cholecystitis. Patient also has hypercalcemia. 12/20/2022 Patient is currently lying in the bed. Awake alert and oriented x3. Anxious. Complains of both right upper and and left upper quadrant abdominal pain below the rib cage. Also complaining of back pain. No complaints of nausea vomiting. Patient underwent bone scan today. Due to hypercalcemia. Oncology and nephrology is on board. Laboratory data showed WBC 10.8 hemoglobin 15.1 and platelets 132 BUN 31.4 and creatinine 1.2 and bicarb level is 20.4 anion gap 14.6. Calcium level 12.6. Tumor markers were ordered. 12/21/2022 Patient is currently lying in bed. Awake alert and oriented x3. On oxygen at 4 L via nasal cannula. Still complains of pain below the rib cage. Bone scan was done yesterday showed a markedly heterogenous uptake involving the bilateral rib cage, vertebral column pelvis and calvarium appears to correspond to abnormal marrow appearance of the visualized osseous structures of the CAT scan. Suspect occult malignancy. Otherwise patient is being continued on IV Solu-Medrol DuoNebs and antibiotics and home Zosyn. Also on anticoagulation with Xarelto. Laboratory data showed WBC 8.2 hemoglobin 14.1 and platelets 119 Sodium 138 potassium 4.6 chloride 105 bicarb is 28 BUN 24 and creatinine 1.07 AST 110 ALT 90 alk phos 160. Current medications reviewed. Objective - Vital Signs Vital signs: Vital Signs Temp 97.4 F L 12/21/22 20:00 Pulse 69 12/21/22 20:00 Resp 20 12/21/22 20:00 BP 119/66 12/21/22 20:00 Pulse Ox 92 L 12/21/22 20:00 FiO2 Intake & Output 12/21/22 12/21/22 12/22/22 06:59 18:59 06:59 Intake Total 1250 Output Total 1000 300 Balance 250 -300 Intake: Intake, IV Titration 1250 Amount Sodium Chloride 0.9% 1, 1250 000 ml @ 125 mls/hr IV . Q8H [facility] Rx#:[id number] Output: Urine 1000 300 Other: Voiding Method Urinal Urinal # Voids 1 # Bowel Movements 1 - Labs CBC & Chem 7: 12/23/22 05:25 12/23/22 05:25 Labs: Abnormal Lab Results - Last 24 Hours (Table) 12/17/22 12/21/22 12/21/22 Range/Units 21:55 05:44 05:44 Plt Count 119 L (150-450) k/uL Lymphocytes # 0.8 L (1.0-4.8) k/uL BUN 24 H (9-20) mg/dL Glucose 120 H (74-99) mg/dL POC Glucose (mg/dL) (70-110) mg/dL AST 110 H (17-59) U/L ALT 90 H (4-49) U/L Alkaline Phosphatase 160 H (38-126) U/L Total Protein 6.1 L (6.3-8.2) g/dL Albumin 3.2 L (3.5-5.0) g/dL Vit D 1,25-Dihydroxy <5 L (20 - 79) pg/mL 12/21/22 12/21/22 12/21/22 Range/Units 07:27 12:19 17:05 Plt Count (150-450) k/uL Lymphocytes # (1.0-4.8) k/uL BUN (9-20) mg/dL Glucose (74-99) mg/dL POC Glucose (mg/dL) 118 H 137 H 123 H (70-110) mg/dL AST (17-59) U/L ALT (4-49) U/L Alkaline Phosphatase (38-126) U/L Total Protein (6.3-8.2) g/dL Albumin (3.5-5.0) g/dL Vit D 1,25-Dihydroxy (20 - 79) pg/mL 12/21/22 Range/Units 20:15 Plt Count (150-450) k/uL Lymphocytes # (1.0-4.8) k/uL BUN (9-20) mg/dL Glucose (74-99) mg/dL POC Glucose (mg/dL) 158 H (70-110) mg/dL AST (17-59) U/L ALT (4-49) U/L Alkaline Phosphatase (38-126) U/L Total Protein (6.3-8.2) g/dL Albumin (3.5-5.0) g/dL Vit D 1,25-Dihydroxy (20 - 79) pg/mL Microbiology - Last 24 Hours (Table) 12/20/22 11:55 Gram Stain - Preliminary Sputum Sputum Culture - Preliminary 12/18/22 12:08 Blood Culture - Preliminary Blood Assessment and Plan Assessment: Hypercalcemia and pain below the rib cage and also back pain. Malignancy work- up in process. Bone scan showed a markedly heterogenous uptake involving the bilateral rib cage, vertebral column pelvis and calvarium appears to correspond to abnormal marrow appearance of the visualized osseous structures of the CAT scan. Suspect occult malignancy. COPD with exacerbation Left lower lobe pulmonary nodule measuring 1.5 cm. Outpatient PET scan recommended by pulmonary. Coronary artery disease with prior history of stent placement History of CVA Peripheral vascular disease with previous history of femoropopliteal bypass surgery. Bilateral carotid endarterectomies History of DVT left lower extremity History of CVA/TIA Hypertension Hyperlipidemia Elevated liver enzymes and cholelithiasis without evidence of cholecystitis. History of nephrolithiasis DVT prophylaxis Plan: Patient will be continued on IV steroids and pain management with [place]. Bone scan showed a markedly heterogenous uptake involving the bilateral rib cage, vertebral column pelvis and calvarium appears to correspond to abnormal marrow appearance of the visualized osseous structures of the CAT scan. Suspect occult malignancy.. CT chest was done today. Oncology and nephrology and pulmonary is on board. Continue with DuoNebs and follow-up closely. Prognosis is guarded. Discussed with his at bedside in detail. Time with Patient: Greater than 30
--- NOTE | 2022-12-24 03:36 | P.PN ---
Subjective Progress Note Date: 12/22/22 67-year-old male was admitted to the hospital with complaints of abdominal pain and found to have cholelithiasis and cholecystitis. Patient also has hypercalcemia. 12/20/2022 Patient is currently lying in the bed. Awake alert and oriented x3. Anxious. Complains of both right upper and and left upper quadrant abdominal pain below the rib cage. Also complaining of back pain. No complaints of nausea vomiting. Patient underwent bone scan today. Due to hypercalcemia. Oncology and nephrology is on board. Laboratory data showed WBC 10.8 hemoglobin 15.1 and platelets 132 BUN 31.4 and creatinine 1.2 and bicarb level is 20.4 anion gap 14.6. Calcium level 12.6. Tumor markers were ordered. 12/21/2022 Patient is currently lying in bed. Awake alert and oriented x3. On oxygen at 4 L via nasal cannula. Still complains of pain below the rib cage. Bone scan was done yesterday showed a markedly heterogenous uptake involving the bilateral rib cage, vertebral column pelvis and calvarium appears to correspond to abnormal marrow appearance of the visualized osseous structures of the CAT scan. Suspect occult malignancy. Otherwise patient is being continued on IV Solu-Medrol DuoNebs and antibiotics and home Zosyn. Also on anticoagulation with Xarelto. Laboratory data showed WBC 8.2 hemoglobin 14.1 and platelets 119 Sodium 138 potassium 4.6 chloride 105 bicarb is 28 BUN 24 and creatinine 1.07 AST 110 ALT 90 alk phos 160. 12/22/2022 Patient is currently lying in bed. Complains of pain. Currently on [place] and morphine sustained-release was ordered. IR guided biopsy of the liver lesion could not be done due to patient being on anticoagulation. Oncology recommends endoscopic evaluation at this time. Otherwise CT of the abdomen pelvis done yesterday showed extensive 1 to 2 cm nodules diffusely throughout the left and right lobes of the liver suspicious for metastatic disease. CEA level is elevated. Laboratory data reviewed. Current medications reviewed. Objective - Vital Signs Vital signs: Vital Signs Temp 98.0 F 12/22/22 20:00 Pulse 67 12/22/22 20:00 Resp 16 12/22/22 20:00 BP 119/75 12/22/22 20:00 Pulse Ox 94 L 12/22/22 20:00 FiO2 Intake & Output 12/22/22 12/22/2212/23/23 06:59 18:59 06:59 Intake Total 590 600 Output Total 1900 Balance -1310 600 Intake: Intake, IV Titration 600 Amount Sodium Chloride 0.9% 1, 600 000 ml @ 50 mls/hr IV . Q20H [facility] Rx#:[id number] Oral 590 Output: Urine 1900 Other: Voiding Method Urinal Urinal - Exam PHYSICAL EXAMINATION: Patient is lying in the bed comfortably, no acute distress, awake alert and oriented. Anxious.. HEENT: Normocephalic. Neck is supple. Pupils reactive. Nostrils clear. Oral cavity is moist. Neck reveals no JVD, carotid bruits, or thyromegaly. CHEST EXAMINATION: Trachea is central. Symmetrical expansion. Bibasilar diminished sounds.. CARDIAC: Normal S1, S2 with no gallops. No murmurs ABDOMEN: Soft. Bowel sounds present. Nontender. No organomegaly. No abdominal bruits. Extremities: reveal no edema. No clubbing or cyanosis Neurologically awake, alert, oriented x3 with well-coordinated movements. No focal deficits noted Skin: No rash or skin lesions. Psychiatric: Coperative. Nonsuicidal, Musculoskeletal: No joint swelling or deformity. Normal range of motion. - Labs CBC & Chem 7: 12/23/22 05:25 12/23/22 05:25 Labs: Abnormal Lab Results - Last 24 Hours (Table) 12/22/22 12/22/22 12/22/22 Range/Units 07:07 17:32 20:06 POC Glucose (mg/dL) 126 H 146 H 115 H (70-110) mg/dL Microbiology - Last 24 Hours (Table) 12/20/22 11:55 Gram Stain - Final Sputum Sputum Culture - Final 12/18/22 12:08 Blood Culture - Preliminary Blood Assessment and Plan Assessment: Hypercalcemia and pain below the rib cage and also back pain. Malignancy work- up in process. Bone scan showed a markedly heterogenous uptake involving the bilateral rib cage, vertebral column pelvis and calvarium appears to correspond to abnormal marrow appearance of the visualized osseous structures of the CAT scan. Suspect occult malignancy. COPD with exacerbation Left lower lobe pulmonary nodule measuring 1.5 cm. Outpatient PET scan recommended by pulmonary. Coronary artery disease with prior history of stent placement History of CVA Peripheral vascular disease with previous history of femoropopliteal bypass surgery. Bilateral carotid endarterectomies History of DVT left lower extremity History of CVA/TIA Hypertension Hyperlipidemia Elevated liver enzymes and cholelithiasis without evidence of cholecystitis. History of nephrolithiasis DVT prophylaxis Plan: Patient will be continued on IV steroids--PO prednisone and pain management with [place] and [facility]. O2 supplemenation. Bone scan showed a markedly heterogenous uptake involving the bilateral rib cage, vertebral column pelvis and calvarium appears to correspond to abnormal marrow appearance of the visualized osseous structures of the CAT scan. Suspect occult malignancy.. CT chest was done CT chest showed liver lesions and biopsy of the lesions could not be done due to patient being on anticoagulation. Endoscopic evaluation as per oncology recommendations. Oncology and nephrology and pulmonary is on board. Continue with DuoNebs and follow-up closely. Prognosis is guarded. Discussed with his at bedside in detail. Time with Patient: Greater than 30
--- NOTE | 2022-12-24 03:43 | P.PN ---
Subjective Progress Note Date: 12/23/22 67-year-old male was admitted to the hospital with complaints of abdominal pain and found to have cholelithiasis and cholecystitis. Patient also has hypercalcemia. 12/20/2022 Patient is currently lying in the bed. Awake alert and oriented x3. Anxious. Complains of both right upper and and left upper quadrant abdominal pain below the rib cage. Also complaining of back pain. No complaints of nausea vomiting. Patient underwent bone scan today. Due to hypercalcemia. Oncology and nephrology is on board. Laboratory data showed WBC 10.8 hemoglobin 15.1 and platelets 132 BUN 31.4 and creatinine 1.2 and bicarb level is 20.4 anion gap 14.6. Calcium level 12.6. Tumor markers were ordered. 12/21/2022 Patient is currently lying in bed. Awake alert and oriented x3. On oxygen at 4 L via nasal cannula. Still complains of pain below the rib cage. Bone scan was done yesterday showed a markedly heterogenous uptake involving the bilateral rib cage, vertebral column pelvis and calvarium appears to correspond to abnormal marrow appearance of the visualized osseous structures of the CAT scan. Suspect occult malignancy. Otherwise patient is being continued on IV Solu-Medrol DuoNebs and antibiotics and home Zosyn. Also on anticoagulation with Xarelto. Laboratory data showed WBC 8.2 hemoglobin 14.1 and platelets 119 Sodium 138 potassium 4.6 chloride 105 bicarb is 28 BUN 24 and creatinine 1.07 AST 110 ALT 90 alk phos 160. 12/22/2022 Patient is currently lying in bed. Complains of pain. Currently on Nash and morphine sustained-release was ordered. IR guided biopsy of the liver lesion could not be done due to patient being on anticoagulation. Oncology recommends endoscopic evaluation at this time. Otherwise CT of the abdomen pelvis done yesterday showed extensive 1 to 2 cm nodules diffusely throughout the left and right lobes of the liver suspicious for metastatic disease. CEA level is elevated. Laboratory data reviewed. 2022 Patient was admitted to the hospital due to bilateral rib cage pain and hypercalcemia and work-up in process for malignancy. Currently lying in the bed. Awake alert and oriented. No complaints of fever or chills. Currently on 4 L via nasal cannula. Continued on prednisone 30 mg daily. Also, DuoNebs and anticoagulation. Patient is scheduled for EGD and colonoscopy today. Otherwise cultures showed no growth. Patient is off antibiotics currently. Laboratory data showed WBC 8.1 hemoglobin 13.6 and platelets 124 BUN 19.3 and creatinine 0.7. Calcium level came down to 8.5. Current medications reviewed. Objective - Vital Signs Vital signs: Vital Signs Temp 96.7 F L 12/23/22 20:00 Pulse 71 12/23/22 22:42 Resp 20 12/23/22 20:00 BP 108/64 12/23/22 22:42 Pulse Ox 94 L 12/23/22 20:00 FiO2 Intake & Output 12/23/22 12/23/22 12/24/22 06:59 18:59 06:59 Intake Total 0 400 Balance 0 400 Weight 99 kg Intake: IV 400 Oral 0 Other: Voiding Method Urinal Urinal # Voids 5 1 # Bowel Movements 5 - Exam PHYSICAL EXAMINATION: Patient is lying in the bed comfortably, no acute distress, awake alert and oriented. Anxious.. HEENT: Normocephalic. Neck is supple. Pupils reactive. Nostrils clear. Oral cavity is moist. Neck reveals no JVD, carotid bruits, or thyromegaly. CHEST EXAMINATION: Trachea is central. Symmetrical expansion. Bibasilar diminished sounds.. CARDIAC: Normal S1, S2 with no gallops. No murmurs ABDOMEN: Soft. Bowel sounds present. Nontender. No organomegaly. No abdominal bruits. Extremities: reveal no edema. No clubbing or cyanosis Neurologically awake, alert, oriented x3 with well-coordinated movements. No focal deficits noted Skin: No rash or skin lesions. Psychiatric: Coperative. Nonsuicidal, Musculoskeletal: No joint swelling or deformity. Normal range of motion. - Labs CBC & Chem 7: 12/23/22 05:25 12/23/22 05:25 Labs: Abnormal Lab Results - Last 24 Hours (Table) 12/23/22 12/23/22 12/23/22 Range/Units 05:25 05:25 20:12 RBC 4.30 L (4.40-5.60) X 10*6/uL Plt Count 124 L (140-440) X 10*3/uL BUN/Creatinine Ratio 27.57 H (12.00-20.00) Ratio POC Glucose (mg/dL) 128 H (70-110) mg/dL Calcium 8.5 L (8.7-10.3) mg/dL Assessment and Plan Assessment: Hypercalcemia and pain below the rib cage and also back pain. Malignancy work- up in process. Bone scan showed a markedly heterogenous uptake involving the bilateral rib cage, vertebral column pelvis and calvarium appears to correspond to abnormal marrow appearance of the visualized osseous structures of the CAT scan. Suspect occult malignancy. COPD with exacerbation Left lower lobe pulmonary nodule measuring 1.5 cm. Outpatient PET scan recommended by pulmonary. Coronary artery disease with prior history of stent placement History of CVA Peripheral vascular disease with previous history of femoropopliteal bypass surgery. Bilateral carotid endarterectomies History of DVT left lower extremity History of CVA/TIA Hypertension Hyperlipidemia Elevated liver enzymes and cholelithiasis without evidence of cholecystitis. History of nephrolithiasis DVT prophylaxis Plan: Patient will be continued on IV steroids--PO prednisone and pain management with and MSSR. O2 supplemenation. Bone scan showed a markedly heterogenous uptake involving the bilateral rib cage, vertebral column pelvis and calvarium appears to correspond to abnormal marrow appearance of the visualized osseous structures of the CAT scan. Suspect occult malignancy.. CT chest was done CT chest showed liver lesions and biopsy of the lesions could not be done due to patient being on anticoagulation. Endoscopic evaluation as per oncology recommendations. Patient is scheduled for EGD and colonoscopy today. Oncology and nephrology and pulmonary is on board. Continue with DuoNebs and follow-up closely. Prognosis is guarded. Time with Patient: Greater than 30
[2022-12-24 07:27] LABS: Glucose,Whole Blood 92 mg/dL (70-110)
[2022-12-24] MEDS: INSULIN ASPART (NovoLOG) 100 UNIT/ML VIAL SQ SCH ×4 (08:05→19:59)
[2022-12-24] MEDS: MORPHINE SULFATE 4 MG/ML SYRINGE IVP PRN (08:09)
[2022-12-24] MEDS: SYMBICORT 160-4.5 MCG INHALER INHALATION SCH ×2 (08:30→20:04)
[2022-12-24] MEDS: HEPARIN SODIUM,PORCINE/PF 5,000 UNIT/0.5 ML SYRINGE SQ SCH ×2 (09:36→22:15)
[2022-12-24] MEDS: SENNOSIDES-DOCUSATE SODIUM 1 EACH TAB PO SCH ×2 (09:37→22:29)
[2022-12-24] MEDS: DULoxetine HCL 30 MG CAPSULE.DR PO SCH ×2 (09:37→22:11)
[2022-12-24] MEDS: GABAPENTIN 300 MG CAP PO SCH ×3 (09:37→22:29)
[2022-12-24] MEDS: predniSONE 10 MG TAB PO SCH (09:37)
[2022-12-24] MEDS: LOSARTAN 50 MG TAB PO SCH (09:37)
[2022-12-24] MEDS: BACLOFEN 10 MG TAB PO SCH ×2 (09:37→22:12)
[2022-12-24] MEDS: METOPROLOL TARTRATE 25 MG TAB PO SCH ×2 (09:37→22:44)
[2022-12-24] MEDS: THIAMINE 100 MG TAB PO SCH (09:37)
[2022-12-24] MEDS: EZETIMIBE 10 MG TAB PO SCH (09:37)
[2022-12-24] MEDS: PANTOPRAZOLE 40 MG/10 ML VIAL IV SCH ×2 (09:38→22:11)
[2022-12-24] MEDS: oxyCODONE ER 15 MG TAB.ER.12H PO SCH ×2 (09:38→22:12)
--- NOTE | 2022-12-24 10:07 | P.PN ---
Subjective Progress Note Date: 12/24/22 Principal diagnosis: Liver lesions This is a pleasant 67-year-old male with a past medical history including alcohol abuse, peripheral arterial disease, DVT, COPD who had presented to the emergency department with complaints of abdominal pain. Patient had initially called his primary care physician and sent him to [facility], there he had labs showing elevated calcium as well as a CT of the abdomen and pelvis which reported cirrhotic morphology of liver. Cholelithiasis. No signs of cholecystitis. Emphysematous changes of the lungs. He was transferred to [facility] for hypercalcemia and abdominal pain. He states that he has abdominal pain across his upper abdomen, he is taking pain medication regularly while here in the hospital. Denies any associated nausea or vomiting. States abdominal pain started about 5 days ago. Denies any previous history of known liver disease. States he was started on a water pill and he has had some decreased distention in his abdomen as well as swelling in his legs. Patient had been a heavy drinker for many years used to drink daily, however had cut back to drinking about a case of beer. He did however quit about 5 weeks ago. On admission he had an ultrasound of the gallbladder which reported enlarged l iver, no focal liver lesions seen. Gallbladder normally distended. No gallstones identified. Wall thickness upper limits of normal measuring 3 mm. No. Clear cystic fluid seen. Sonographic Louie sign negative. Multiple consultants were added including general surgery for abdominal pain who is working patient up for gallbladder, pulmonology for patient's COPD, nephrology for hypercalcemia, oncology for hypercalcemia. Gastroenterology was consulted for elevated CEA, questionable GI malignancy. Patient reports no previous colonoscopy, no previous history of known liver disease. Labs WBC 8.2 hemoglobin 14 hematocrit 43 platelet count 119,000 sodium 138 potassium 4.6 BUN 24 creatinine 1.0 calcium 9.8 total bilirubin 0.4 AST 110 ALT 90 alkaline phosphatase 160 CEA 4441.0, a CA-19-9 69.5, AFP tumor marker less than 3. 12/22/2022 Patient seen and examined today as a follow-up. Initially oncology recommended liver biopsy however interventional radiology recommends it being done outp atient as patient is on multiple blood thinners. Therefore oncology is recommending endoscopic evaluation. Patient denies any nausea or vomiting, he is tolerating regular diet. Abdominal pain somewhat better and controlled with pain medication. Also interventional radiology states that there is no fluid available for paracentesis. 12/24/2022 Patient was seen and examined today as a follow-up. Yesterday he underwent upper and lower endoscopy. Upper endoscopy revealed small hiatal hernia and mild gastritis. Colonoscopy revealed 55 mm cecal polyp status post cold biopsy and 1 cm ascending colon polyp status post polypectomy. No masses identified. Patient today states he still having pretty severe abdominal pain mostly in the upper abdomen and upper right quadrant. He otherwise denies any nausea or vomiting. Objective - Vital Signs Vital signs: Vital Signs Temp 97.5 F L 12/24/22 07:36 Pulse 77 12/24/22 07:36 Resp 22 12/24/22 07:36 BP 143/76 12/24/22 07:36 Pulse Ox 90 L 12/24/22 07:36 FiO2 Intake & Output 12/23/22 12/24/22 12/24/22 18:59 06:59 18:59 Intake Total 400 590 Balance 400 590 Weight 99 kg Intake: IV 400 Oral 590 Other: Voiding Method Urinal Urinal # Voids 1 2 - Exam General appearance: The patient is alert, oriented, appears in no acute distress. HET: Head is normocephalic and atraumatic. Conjunctiva pink. Sclera anicteric. Neck: Supple without lymphadenopathy. Abdomen: Soft, upper abdominal tenderness, nondistended. No guarding or rigidity. Extremities: Normal skin color and turgor. No pedal edema Skin: No rashes, no jaundice Neurological: No focal deficits. Alert and oriented. - Labs CBC & Chem 7: 12/23/22 05:25 12/23/22 05:25 Labs: Abnormal Lab Results - Last 24 Hours (Table) 12/23/22 12/23/22 12/23/22 Range/Units 05:25 05:25 20:12 RBC 4.30 L (4.40-5.60) X 10*6/uL Plt Count 124 L (140-440) X 10*3/uL BUN/Creatinine Ratio 27.57 H (12.00-20.00) Ratio POC Glucose (mg/dL) 128 H (70-110) mg/dL Calcium 8.5 L (8.7-10.3) mg/dL Microbiology - Last 24 Hours (Table) 07/15/23 12:08 Blood Culture - Final Blood Assessment and Plan (1) Liver lesion Narrative/Plan: 67-year-old female who presented to [facility] for abdominal pain and was transferred to this facility for abdominal pain and hypercalcemia. He had multiple blood work ordered noting elevated CEA and CA-19-[address] of the abdomen and pelvis concerning for multiple 1-2 cm liver lesions likely consistent with malignancy. Patient has long-standing history of alcoholism, quit drinking about 5 weeks ago. Denies previous history of liver disease. Complaining of abdominal pain which is in the upper abdomen, radiating into his back. He also had a bone scan done today showing abnormal uptake in multiple areas of his body including rib cage. Likely dealing with metastatic disease, possible source colon. Patient has never had colonoscopy. States he's had cold guard in the past. Discussed with oncology and they recommend proceeding with liver biopsy. Current Visit: Yes Status: Acute Priority: High Code(s): K76.9 - LIVER DISEASE, UNSPECIFIED SNOMED Code(s): 328030926 (2) Elevated tumor markers Narrative/Plan: Patient status post upper and lower endoscopy without any masses identified. Patient to follow-up for cecal and colon polyp biopsies. Will follow up with oncology, plan for outpatient liver biopsies Current Visit: Yes Status: Acute Code(s): R97.8 - OTHER ABNORMAL TUMOR MARKERS SNOMED Code(s): 819640068 (3) Abdominal pain Current Visit: Yes Status: Acute Code(s): R10.9 - UNSPECIFIED ABDOMINAL PAIN SNOMED Code(s): 75110871 (4) Hypercalcemia Current Visit: Yes Status: Acute Priority: High Code(s): E83.52 - HYPERCALCEMIA SNOMED Code(s): 35825117 Plan: 1. Continue symptomatic and supportive care 2. Interventional radiology consulted for liver biopsy, however due to patient's blood thinners they recommend outpatient 3. Continue pain medication as needed 4. Continue to hold anticoagulation 5. Diet as tolerated 6. Patient is status post upper and lower endoscopy. No masses found 7. Continue with recommendations from oncology Thank you for this consultation, we will sign off at this time. Dr. Erica Haro I agree with the dictator's note, documented as a scribe by Savannah Laughlin.
--- NOTE | 2022-12-24 10:24 | P.PN ---
Subjective Progress Note Date: 12/24/22 67-year-old male patient was transferred to us from [facility] for diffuse pain. The pain is mainly across his chest and upper abdomen and across the rib cage addition to chronic back pain. Is known to have chronic dyspnea and the patient is noted COPD and a left lung pulmonary nodule that has been followed up on outpatient basis. Initially went to [facility] and his calcium level was noted to be elevated. Based on his ongoing symptoms, he was referred to us. His current calcium level is at 13. He did not have any previous issues with hypercalcemia. Is known to have COPD, pulmonary nodule, coronary artery disease and extensive peripheral vascular disease and the patie nt has undergone previous vascular bypass surgery and stenting to the lower extremities. He is also known to have previous history of DVT. Maintain on long-term anticoagulants. At the same time, the patient has hypertension, hyperlipidemia, obesity, chronic back pain and a recent MRI from August 2022 showed wedging of the L2 spine in the order of 15% without any acute fractures. There is also multilevel spondylitic changes and mildly prominent narrowing due to facet arthropathy and disc space narrowing at the level of L4-L5 and old compression fracture the level of L2. Mild edema in the anterior L3 vertebral and posterior L5 vertebral and there is no evidence of any significant lumbar st enosis. The computed tomography scan of the abdomen and pelvis that was done in 09/22/2022 showed moderate to severe narrowing throughout the bilateral external iliac arteries and a stent in the superficial femoral artery was patent on the left. There was cholelithiasis and moderate atherosclerotic changes throughout the abdominal aorta and colonic diverticulosis. There are atelectatic changes in the right posterior base. The abdomen is gravid 7.6, hemoglobin is 15.4 and platelet count is 135. LFTs are abnormal with a AST of 105, ALT 121 and alkaline phosphatase of 193. Bilirubin is at 0.5. Covid 19 testing is negative. Creatinine is at 1.1. On 12/19/2022, the patient is stable without any change in his condition. On 12/19/2022, the patient is stable without any changes condition. Calcium level today is at 12.8. Awaiting further workup. Remains on IV fluids and Zosyn. Remains on anticoagulation with is xarelto The patient is seen today 12/20/2022 in follow-up on the regular medical floor. He is awake and alert in no acute distress. Resting fairly comfortably in bed. Still having some bilateral chest wall discomfort and rib pain. A culture revealing no growth to date. Sodium 143. Potassium 4.1. Bicarb 20. BUN 31. Creatinine 1.2. Glucose 115. AST 125. ALT 103. Pro-calcitonin 0.11. Continue bronchodilators and steroids. Antibiotics in the form of Zosyn. Anticoagulated with Xarelto. Receiving normal saline at 75 ML's per hour. The patient is seen today 12/21/2022 in follow-up on the regular medical floor. He is currently sitting up in bed. Awake and alert in no acute distress. Maintaining O2 saturations in the 90s on 4 L nasal cannula. Afebrile. Hemodynamically stable. Still with some bilateral rib pain. Bone scan did reveal marketed heterogenous uptake involving the bilateral rib cage, vertebral column, pelvis and calvarium appears to correspond to abnormal marrow appearance of the visualized osseous structures on CAT scan. Suspect occult malignancy. Blood culture reveals no growth. Sputum culture revealed no growth. White count 8.2. Hemoglobin 14.1. Platelets 119. Sodium 138. Potassium 4.6. Bicarb 28. BUN 24. Creatinine 1.07. Glucose 120. AST 110. ALT 90. Carcinoembryonic antigen 4441. CA 199 antigen 69.5. Remains on DuoNeb inhalations, Symbicort, IV Solu-Medrol. Antiemetics in the form of Zosyn. Anti coagulated with Xarelto. The patient is seen today 12/22/2022 in follow-up on the regular medical floor. He is awake and alert in no acute distress. In taking O2 saturations in the 90s on 2 L/m per nasal cannula. Computed tomography scan of the abdomen and pelvis revealed extensive 1-2 cm nodules diffusely throughout the left and right lobes of the liver suspicious for metastatic disease. Ultrasound of the liver revealed no acute process. There is a nodular contour to the liver compatible with cirrhosis. Nonspecific nodular changes could be related to portal hypertension/regenerative nature the liver parenchymal versus underlying infiltrative HCC which is felt to be less likely. Blood cultures reveal no growth. Sputum culture revealed no growth. Blood glucose 126.. Remains on Du oNeb inhalations, Symbicort, Solu-Medrol. Heparin for DVT prophylaxis. The plan is for colonoscopy. Anticoagulants on hold. The patient is seen today 12/23/2022 in follow-up on the regular medical floor. He is sitting up in bed. Awake and alert in no acute distress. Stating his pain is well controlled currently. He is maintaining O2 saturations in the low 90s on 4 L/m per nasal cannula. Afebrile. Hemodynamically stable. Blood cultures revealed no growth. Sputum cultures revealed no growth. White count 8.1. Hemoglobin 13.6. Platelets 124. Sodium 1:30. Potassium 43.5. Bicarb 23 . BUN 19. Creatinine 0.7. Calcium 8.5. Awaiting EGD/colonoscopy today. The patient is seen today 12/24/2022 in follow-up on the regular medical floor. He is currently sitting up at the bedside. He is having quite a bit of abdominal discomfort this morning. More so than his initial complaints. He did undergo EGD yesterday that revealed a small hiatal hernia and mild gastritis. Colonoscopy revealed a 5 mm cecal and a 1 cm ascending colon polyps status post biopsies. Pathology pending. No masses identified. He will still need a liver biopsy. Glucose 92. He is continued on DuoNeb inhalations, Symbicort, prednisone taper. Heparin for DVT prophylaxis. Objective - Vital Signs Vital signs: Vital Signs Temp 97.5 F L 12/24/22 07:36 Pulse 77 12/24/22 07:36 Resp 22 12/24/22 07:36 BP 143/76 12/24/22 07:36 Pulse Ox 90 L 12/24/22 08:30 FiO2 Intake & Output 12/23/22 12/24/22 12/24/22 18:59 06:59 18:59 Intake Total 400 590 Output Total 400 Balance 400 590 -400 Weight 99 kg Intake: IV 400 Oral 590 Output: Urine 400 Other: Voiding Method Urinal Urinal # Voids 1 2 - Exam GENERAL EXAM: Alert, pleasant 67-year-old male, on 4 liters nasal cannula, having abdominal discomfort. HEAD: Normocephalic. EYES: Normal reaction of pupils, equal size. NOSE: Clear with pink turbinates. THROAT: No erythema or exudates. NECK: No masses, no JVD. CHEST: No chest wall deformity. Bilateral chest wall pain LUNGS: Equal air entry with no crackles, wheeze, rhonchi or dullness. CVS: S1 and S2 normal with no audible murmur, regular rhythm. ABDOMEN: Distended, tender, normal bowel sounds, no guarding or rigidity. SPINE: No scoliosis or deformity SKIN: No rashes CENTRAL NERVOUS SYSTEM: No focal deficits, tone is normal in all 4 extremities. EXTREMITIES: There is no peripheral edema. No clubbing, no cyanosis. Peripheral pulses are intact. - Labs CBC & Chem 7: 12/23/22 05:25 12/23/22 05:25 Labs: Abnormal Lab Results - Last 24 Hours (Table) 12/23/22 12/23/22 Range/Units 05:25 20:12 RBC 4.30 L (4.40-5.60) X 10*6/uL Plt Count 124 L (140-440) X 10*3/uL POC Glucose (mg/dL) 128 H (70-110) mg/dL Microbiology - Last 24 Hours (Table) 12/18/22 12:08 Blood Culture - Final Blood Assessment and Plan Assessment: Diffuse skeletal pain involving the chest wall and back. Bone scan did reveal marked heterogenous uptake involving the bilateral rib cage, vertebral column, pelvis and calvarium appears to correspond to abnormal marrow appearance of the visualized osseous structures on CAT scan. Suspect malignancy. Carcinoembryonic antigen 4441. CA 199 antigen 69.5. Colonoscopy from 12/23/2022 revealed a 5 mm cecal and a 1 cm ascending colon polyps status post biopsies. Pathology pending. No masses identified. He will still need a liver biopsy. Xarelto, Aspirin and Plavix remain on hold. Hypercalcemia. Received Zometa. Calcium level is down to 8.5. Acute hypoxemic respiratory failure secondary to an acute exacerbation of chronic obstructive pulmonary disease Left lower lobe pulmonary nodule measuring 1.5 cm, will need an outpatient PET CT and further investigation. Probable metastatic disease to the lung. Coronary artery disease Vascular disease with a previous fem-pop bypass surgery Bilateral carotid endarterectomies Coronary artery disease and coronary stenting Previous history of CVA Previous history of DVT of the left lower extremity Previous history of Covid 19 infection in February 2021 Hypertension Hyperlipidemia Abnormal LFTs with cholelithiasis without evidence of cholecystitis History of nephrolithiasis Plan: The patient was seen and evaluated Medications reviewed EGD/colonoscopy is also reviewed, pathology pending Will still need a liver biopsy Continue to hold anticoagulants Heparin for DVT prophylaxis Now with worsening abdominal discomfort Computed tomography scan of the abdomen and pelvis ordered Titrate down the FiO2 as tolerated We will continue to follow I have personally seen and examined the patient, performed the documentation and the assessment and plan as written. Number of minutes spent on the visit: 10.
[2022-12-24 13:07] LABS: Glucose,Whole Blood 107 mg/dL (70-110)
--- NOTE | 2022-12-24 13:36 | CT ---
EXAMINATION TYPE: CT abdomen pelvis w con DATE OF EXAM: 12/24/2022 COMPARISON: 12/21/2022 HISTORY: 67-year-old male with abdominal Pain TECHNIQUE: Contiguous axial scanning of the abdomen and pelvis following administration of 100 ml Iso misti 300 IV contrast. Delayed images through the kidneys and coronal/sagittal reconstructions perform ed. CT DLP: 1986.7 mGycm Automated exposure control for dose reduction was used. FINDINGS: Heart upper limits of normal in size without pericardial effusion. Prominent epicardial fat pad. Persistent dependent opacities in bilateral lower lobes. No pleural effusion. Nodular hepatic contour with numerous micronodules throughout the liver. Portal venous system is crane nt. No biliary ductal dilatation. Small layering gallstones measuring up to 6 mm. No abnormal gallbladder distention. Adrenal glands, kidneys, spleen, and pancreas show no gross abnormality. There is moderate atherosclerotic calcification throughout the abdominal aorta and iliac arteries. Th ere is a mild AAA of the distal abdominal aorta to 3.0 cm. Possible severe assess cardiac narrowing p roximal right renal artery and segmental moderate to severe stenosis along the first 5 cm of the SMA. At least moderate stenosis celiac axis origin. Segmental moderate to severe stenoses bilateral exter nal iliac arteries. Scarring in the left inguinal region. No dilated small bowel, free fluid, or free air. No mesenteric or retroperitoneal lymphadenopathy. Normal appendix. Redundant sigmoid colon. Mild mid sigmoid diverticulosis. No pericolonic inflammator y change. Bladder is urine distended. There is focus of enhancement versus calcification along the right lateral margin of the prostate gla nd measuring 1.1 cm that could represent calcification. No abnormal fluid collection the pelvis or pe lvic lymphadenopathy. There is a 2.4 cm cystic nodule just deep to the skin surface of the left paramedian buttock. Bones: Right total arthroplasty. There appears to be left femoral head AVN with early subarticular co llapse along the weightbearing aspect. This lower thoracic spine. Hypertrophic facet arthropathy with degenerative grade 1 retrolisthesis L2-L3, L3-L4, L4-L5. Heterogeneous low density marrow probably d ue to diffuse osteopenia. More hypodense areas throughout the osseous structures, for example, axial image 34 within the L1 vertebral body raises concern for underlying lesions. IMPRESSION: 1. Innumerable small nodules throughout the liver. There is nodular hepatic contour. Differential con siderations include underlying cirrhosis with numerous regenerative nodules versus diffuse metastatic disease versus fungal microabscesses. Further clinical correlation recommended. 2. Heterogeneous appearance to the osseous structures. Given the liver findings, correlate for potent ial infiltrative disease or diffuse osseous metastatic disease. 3. Moderate to severe atherosclerotic changes throughout. Segmental severe stenoses bilateral externa l iliac arteries and right renal artery. Moderate to severe stenoses along the first 5 cm of the SMA. Distal AAA at 3.0 cm. 4. Cholelithiasis and mild mid sigmoid diverticulosis. 5. Either calcification or area of 1.1 cm enhancement right lateral margin of the prostate gland. Cor relate with PSA values to exclude underlying neoplasm. 6. Left femoral head AVN with early subarticular collapse.
--- NOTE | 2022-12-24 14:07 | P.PN ---
Subjective 67-year-old male was admitted to the hospital with complaints of abdominal pain and found to have cholelithiasis and cholecystitis. Patient also has hypercalcemia. 12/20/2022 Patient is currently lying in the bed. Awake alert and oriented x3. Anxious. Complains of both right upper and and left upper quadrant abdominal pain below the rib cage. Also complaining of back pain. No complaints of nausea vomiting. Patient underwent bone scan today. Due to hypercalcemia. Oncology and nephrology is on board. Laboratory data showed WBC 10.8 hemoglobin 15.1 and platelets 132 BUN 31.4 and creatinine 1.2 and bicarb level is 20.4 anion gap 14.6. Calcium level 12.6. Tumor markers were ordered. 12/21/2022 Patient is currently lying in bed. Awake alert and oriented x3. On oxygen at 4 L via nasal cannula. Still complains of pain below the rib cage. Bone scan was done yesterday showed a markedly heterogenous uptake involving the bilateral rib cage, vertebral column pelvis and calvarium appears to correspond to abnormal marrow appearance of the visualized osseous structures of the CAT scan. Suspect occult malignancy. Otherwise patient is being continued on IV Solu-Medrol DuoNebs and antibiotics and home Zosyn. Also on anticoagulation with Xarelto. Laboratory data showed WBC 8.2 hemoglobin 14.1 and platelets 119 Sodium 138 potassium 4.6 chloride 105 bicarb is 28 BUN 24 and creatinine 1.07 AST 110 ALT 90 alk phos 160. 12/22/2022 Patient is currently lying in bed. Complains of pain. Currently on [place] and morphine sustained-release was ordered. IR guided biopsy of the liver lesion could not be done due to patient being on anticoagulation. Oncology recommends endoscopic evaluation at this time. Otherwise CT of the abdomen pelvis done yesterday showed extensive 1 to 2 cm nodules diffusely throughout the left and right lobes of the liver suspicious for metastatic disease. CEA level is elevated. Laboratory data reviewed. 2022 Patient was admitted to the hospital due to bilateral rib cage pain and hypercalcemia and work-up in process for malignancy. Currently lying in the bed. Awake alert and oriented. No complaints of fever or chills. Currently on 4 L via nasal cannula. Continued on prednisone 30 mg daily. Also, DuoNebs and anticoagulation. Patient is scheduled for EGD and colonoscopy today. Otherwise cultures showed no growth. Patient is off antibiotics currently. Laboratory data showed WBC 8.1 hemoglobin 13.6 and platelets 124 BUN 19.3 and creatinine 0.7. Calcium level came down to 8.5. 12/24/2022 Patient is today had EGD and colonoscopy showing small hiatal hernia and cecal polyp which was removed. No other significant abnormality. Patient had repeat CT of the abdomen and pelvis today showing multiple nodules of the liver suspicious for liver cirrhosis versus metastatic disease area Heterogenous appearance of the osseous structures suspicious for metastatic disease. Moderate to severe stenosis of bilateral iliac arteries and right renal artery. As well as SMA. Cholelithiasis and diverticulitis. Prostate gland calcification 1.1 cm. 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 There was possible to discharge and the patient and do the procedure as an outpatient and follow-up with oncologist as an outpatient on , however patient still complaining of from severe bilateral rib cage pain and tenderness related most likely due to metastatic disease. Upon consult is obtained. Also patient most likely will have biopsy next week. Discussed with staff Objective - Vital Signs Vital signs: Vital Signs Temp 98.3 F 12/24/22 12:35 Pulse 66 12/24/22 12:35 Resp 20 12/24/22 12:35 BP 110/65 12/24/22 12:35 Pulse Ox 90 L 12/24/22 12:35 FiO2 Intake & Output 12/23/22 12/24/22 12/24/22 18:59 06:59 18:59 Intake Total 400 590 Output Total 400 Balance 400 590 -400 Weight 99 kg Intake: IV 400 Oral 590 Output: Urine 400 Other: Voiding Method Urinal Urinal Urinal # Voids 1 2 - Labs CBC & Chem 7: 12/23/22 05:25 12/23/22 05:25 Labs: Abnormal Lab Results - Last 24 Hours (Table) 12/23/22 Range/Units 20:12 POC Glucose (mg/dL) 128 H (70-110) mg/dL Microbiology - Last 24 Hours (Table) 12/18/22 12:08 Blood Culture - Final Blood Assessment and Plan Assessment: Liver cirrhosis, cannot rule out malignancy given multiple nodules and will require liver biopsy Bilateral rib cage pain and tenderness related to possible metastatic osseous disease. Hypercalcemia and pain below the rib cage and also back pain. Malignancy work- up in process. Bone scan showed a markedly heterogenous uptake involving the bilateral rib cage, vertebral column pelvis and calvarium appears to correspond to abnormal marrow appearance of the visualized osseous structures of the CAT scan. Suspect occult malignancy. COPD with no exacerbation Left lower lobe pulmonary nodule measuring 1.5 cm. Outpatient PET scan recommended by pulmonary. Coronary artery disease with prior history of stent placement History of CVA Peripheral vascular disease with previous history of femoropopliteal bypass surgery. Bilateral carotid endarterectomies History of DVT left lower extremity History of CVA/TIA Hypertension Hyperlipidemia Elevated liver enzymes and cholelithiasis without evidence of cholecystitis. History of nephrolithiasis Plan: Consult pain management Continue with pain medication Plan for liver biopsy next week Several consultants on the case including hematology/oncology, pulmonary service and GI service. Labs and medication were reviewed.. Continue same treatment. Continue with symptomatic treatment. Resume home medication. Monitor labs and vitals. DVT and GI prophylaxis. Further recommendations as per clinical course of the patient DVT prophylaxis: Subcutaneous heparin GI Prophylaxis: Ppi PT/OT: Pending Prognosis is guarded
--- NOTE | 2022-12-24 15:16 | P.PN ---
Subjective Progress Note Date: 12/24/22 Principal diagnosis: abdominal pain At today's visit patient is resting comfortably in bed. at bedside. Patient reports abdominal pain worsened over night. However, after looking at MAR, over the last 24 hrs he only received oxyIR twice and morphine IVP once. Had a discussion with patient and regarding pain med administration. Patient was asked why he has taken so little of his prn pain medications if he was in pain overnight. He stated he didn't want to be a burden to the nursing staff. Discussed with patient that he needs to ask for pain medications if he is experiencing acute pain so we are better able to see how much pain medications he is needing to control his pain, so he is able to be discharged with an appropriate pain med regimen. S/p egd/colonoscopy yesterday with Dr. Haro. No mass or abnormal lesions noted. 2 polyps removed, biopsy pending Objective - Vital Signs Vital signs: Vital Signs Temp 98.3 F 12/24/22 12:35 Pulse 66 12/24/22 12:35 Resp 20 12/24/22 12:35 BP 110/65 12/24/22 12:35 Pulse Ox 90 L 12/24/22 12:35 FiO2 Intake & Output 12/23/22 12/24/22 12/24/22 18:59 06:59 18:59 Intake Total 400 590 Output Total 400 Balance 400 590 -400 Weight 99 kg Intake: IV 400 Oral 590 Output: Urine 400 Other: Voiding Method Urinal Urinal Urinal # Voids 1 2 - Constitutional General appearance: Present: no acute distress, obese - EENT Eyes: Present: anicteric sclerae, EOMI ENT: Present: hearing grossly normal - Respiratory Details: breathing is even and unlabored - Cardiovascular Details: skin warm and dry - Gastrointestinal Gastrointestinal Comment(s): mildly distended, no changes - Integumentary Integumentary: Absent: cyanotic, jaundiced - Neurologic Neurologic Comment(s): grossly intact - Musculoskeletal Musculoskeletal: Present: generalized weakness - Psychiatric Psychiatric: Present: A&O x's 3, appropriate affect, intact judgment & insight - Labs CBC & Chem 7: 12/23/22 05:25 12/23/22 05:25 Labs: Abnormal Lab Results - Last 24 Hours (Table) 12/23/22 Range/Units 20:12 POC Glucose (mg/dL) 128 H (70-110) mg/dL Microbiology - Last 24 Hours (Table) 12/18/22 12:08 Blood Culture - Final Blood Assessment and Plan (1) Hypercalcemia Current Visit: Yes Status: Acute Priority: High Code(s): E83.52 - HYPERCALCEMIA SNOMED Code(s): 52598310 (2) Liver lesion Current Visit: Yes Status: Acute Priority: High Code(s): K76.9 - LIVER DISEASE, UNSPECIFIED SNOMED Code(s): 794218454 Plan: Hypercalcemia/Liver lesion: -Upon arrival Calcium 13.0. S/p zometa infusion and 1 dose calcitonin. Hypercalcemia resolved. Calcium 8.5. PTH low, 5.4. PTHrP pending -CTA chest revealed 1.5 cm pulmonary nodule in the left lower lobe that is unchanged and been being followed outpatient. Gallbladder ultrasound revealed no distention or gallstones. Wall thicknesses is upper limits of normal measuring 3 mm. No pericholecystic fluid seen. Sonographic Louie sign was negative. Per ER note, CT AP was obtained at [facility] revealing cirrhotic morphology of the liver. Cholelithiasis. No signs of cholecystitis. -LFTs elevated. Lipase normal. Bilirubin normal. Hx Etoh. Pt recently quit drinking, approx 7 weeks ago. -Denies constitutional symptoms and personal history of cancer. Father had history of pancreatic cancer. - reports recent finding of left knee fracture without any known injury, concerning for pathological fracture. Bone scan revealed marked heterogeneous uptake involving the bilateral rib cage, vertebral column, pelvis, and calvarium appears to correspond to abnormal marrow appearance of the visualized osseous structures by CT scans on 12/18 and 12/17. -Tumor markers ordered. CEA elevated at 4441. AFP and CA 19-9 normal. Discussed with patent and that CEA is non-diagnostic of colon cancer, but with symptoms of abdominal pain/distention, hypercalcemia and elevated CEA, these findings are very concerning for GI malignancy -SPEP and immunofixation non-specific, reporting difficult to exclude a small IgM paraprotein. IgM, IgG, and IgA WNL. Serum K/L light chain ratio 1.26. No significant findings for underlying bone marrow etiology -Repeat CT AP with contrast revealed extensive 1-2 cm nodules diffusely throughout the left and right lobes of the liver suspicious for metastatic disease. Upon review of CT scan and clinical findings, IR consult placed for diagnostic paracentesis. Spoke with Dr. Shipley, and after further review of imaging he reports there is no fluid within abdomen for procedure -GI and surgery consulted, abdominal US ordered. Abdominal ultrasound revealed no evidence for acute process. Nodular contour liver compatible with cirrhosis. -IR consult placed for liver biopsy. Spoke with IR nurse, per interventional radiologist biopsy cannot be done for 6 days due to aspirin administration. -S/p egd/colonoscopy yesterday with Dr. Haro. Upper endoscopy revealed small hiatal hernia and mild gastritis. Colonoscopy revealed a 5 mm cecal polyp status post cold biopsy and 1 cm ascending colon polyp status post-polypectomy. No masses identified. Will proceed with IR biopsy of liver. -PET scan will be rescheduled upon discharge. -Discussed with patient and spouse findings and concerns for malignancy and plan of care as stated above. They are agreeable Abdominal pain: -R/t underlying likely malignancy -Pain medications adjusted. Patient reports abdominal pain worsened over night. However, after looking at MAR, over the last 24 hrs he only received oxyIR twice and morphine IVP once. Had a discussion with patient and regarding pain med administration. Patient was asked why he has taken so little of his prn pain medications if he was in pain overnight. He stated he didn't want to be a burden to the nursing staff. Discussed with patient that he needs to ask for pain medications if he is experiencing acute pain so we are better able to see how much pain medications he is needing to control his pain, so he is able to be discharged with an appropriate pain med regimen. Will continue to monitor -Continue on senokot-S for prevention of opiate-induced constipation
[2022-12-24 17:26] LABS: Glucose,Whole Blood 128 mg/dL (70-110)
[2022-12-24 19:56] LABS: Glucose,Whole Blood 138 mg/dL (70-110)
[2022-12-24] MEDS: ATORVASTATIN 80 MG TAB PO SCH (22:12)
[2022-12-24] MEDS: amLODIPine 10 MG TAB PO SCH (22:45)
[2022-12-25] MEDS: MORPHINE SULFATE 4 MG/ML SYRINGE IVP PRN ×5 (00:03→21:31)
[2022-12-25 07:37] LABS: Glucose,Whole Blood 132 mg/dL (70-110)
[2022-12-25] MEDS: INSULIN ASPART (NovoLOG) 100 UNIT/ML VIAL SQ SCH ×4 (07:51→20:55)
[2022-12-25] MEDS: EZETIMIBE 10 MG TAB PO SCH (08:04)
[2022-12-25] MEDS: oxyCODONE ER 15 MG TAB.ER.12H PO SCH ×2 (08:04→20:53)
[2022-12-25] MEDS: LOSARTAN 50 MG TAB PO SCH (08:05)
[2022-12-25] MEDS: DULoxetine HCL 30 MG CAPSULE.DR PO SCH ×2 (08:05→20:53)
[2022-12-25] MEDS: GABAPENTIN 300 MG CAP PO SCH ×2 (08:05→20:53)
[2022-12-25] MEDS: THIAMINE 100 MG TAB PO SCH (08:05)
[2022-12-25] MEDS: METOPROLOL TARTRATE 25 MG TAB PO SCH ×2 (08:05→20:55)
[2022-12-25] MEDS: BACLOFEN 10 MG TAB PO SCH ×2 (08:05→20:53)
[2022-12-25] MEDS: HEPARIN SODIUM,PORCINE/PF 5,000 UNIT/0.5 ML SYRINGE SQ SCH ×2 (08:05→16:52)
[2022-12-25] MEDS: SENNOSIDES-DOCUSATE SODIUM 1 EACH TAB PO SCH ×2 (08:05→21:31)
[2022-12-25] MEDS: predniSONE 10 MG TAB PO SCH (08:05)
[2022-12-25] MEDS: PANTOPRAZOLE 40 MG/10 ML VIAL IV SCH ×2 (08:06→20:53)
[2022-12-25] MEDS: SYMBICORT 160-4.5 MCG INHALER INHALATION SCH ×2 (09:09→17:56)
[2022-12-25] MEDS: IPRATROPIUM-ALBUTEROL 3 ML NEB INHALATION SCH ×4 (09:12→17:57)
--- NOTE | 2022-12-25 09:46 | XR ---
EXAMINATION TYPE: XR chest 1V portable DATE OF EXAM: 12/25/2022 9:42 AM COMPARISON: Chest radiographs from 12/17/2022 TECHNIQUE: XR chest 1V portable Portable AP radiograph of the chest. CLINICAL INDICATION:Male, 67 years old with history of Hypoxemia; FINDINGS: Lungs/Pleura: Patchy right midlung airspace opacity. No pneumothorax or pleural effusion. Chronic sen escent parenchymal change. Background COPD changes. Pulmonary vascularity: Unremarkable. Heart/mediastinum: Cardiomediastinal silhouette is enlarged and stable. Atherosclerotic calcificatio ns are seen in the aorta. Musculoskeletal: No acute osseous pathology. IMPRESSION: Patchy right midlung airspace opacity concerning for pneumonia.
[2022-12-25] MEDS ORDERED: FUROSEMIDE 10 MG/ML 4 ML VIAL IV STA (10:05)
--- NOTE | 2022-12-25 10:13 | P.PN ---
Subjective Progress Note Date: 12/25/22 67-year-old male patient was transferred to us from [facility] for diffuse pain. The pain is mainly across his chest and upper abdomen and across the rib cage addition to chronic back pain. Is known to have chronic dyspnea and the patient is noted COPD and a left lung pulmonary nodule that has been followed up on outpatient basis. Initially went to [facility] and his calcium level was noted to be elevated. Based on his ongoing symptoms, he was referred to us. His current calcium level is at 13. He did not have any previous issues with hypercalcemia. Is known to have COPD, pulmonary nodule, coronary artery disease and extensive peripheral vascular disease and the patie nt has undergone previous vascular bypass surgery and stenting to the lower extremities. He is also known to have previous history of DVT. Maintain on long-term anticoagulants. At the same time, the patient has hypertension, hyperlipidemia, obesity, chronic back pain and a recent MRI from August 2022 showed wedging of the L2 spine in the order of 15% without any acute fractures. There is also multilevel spondylitic changes and mildly prominent narrowing due to facet arthropathy and disc space narrowing at the level of L4-L5 and old compression fracture the level of L2. Mild edema in the anterior L3 vertebral and posterior L5 vertebral and there is no evidence of any significant lumbar st enosis. The computed tomography scan of the abdomen and pelvis that was done in 09/22/2022 showed moderate to severe narrowing throughout the bilateral external iliac arteries and a stent in the superficial femoral artery was patent on the left. There was cholelithiasis and moderate atherosclerotic changes throughout the abdominal aorta and colonic diverticulosis. There are atelectatic changes in the right posterior base. The abdomen is gravid 7.6, hemoglobin is 15.4 and platelet count is 135. LFTs are abnormal with a AST of 105, ALT 121 and alkaline phosphatase of 193. Bilirubin is at 0.5. Covid 19 testing is negative. Creatinine is at 1.1. On 12/19/2022, the patient is stable without any change in his condition. On 12/19/2022, the patient is stable without any changes condition. Calcium level today is at 12.8. Awaiting further workup. Remains on IV fluids and Zosyn. Remains on anticoagulation with is xarelto The patient is seen today 12/20/2022 in follow-up on the regular medical floor. He is awake and alert in no acute distress. Resting fairly comfortably in bed. Still having some bilateral chest wall discomfort and rib pain. A culture revealing no growth to date. Sodium 143. Potassium 4.1. Bicarb 20. BUN 31. Creatinine 1.2. Glucose 115. AST 125. ALT 103. Pro-calcitonin 0.11. Continue bronchodilators and steroids. Antibiotics in the form of Zosyn. Anticoagulated with Xarelto. Receiving normal saline at 75 ML's per hour. The patient is seen today 12/21/2022 in follow-up on the regular medical floor. He is currently sitting up in bed. Awake and alert in no acute distress. Maintaining O2 saturations in the 90s on 4 L nasal cannula. Afebrile. Hemodynamically stable. Still with some bilateral rib pain. Bone scan did reveal marketed heterogenous uptake involving the bilateral rib cage, vertebral column, pelvis and calvarium appears to correspond to abnormal marrow appearance of the visualized osseous structures on CAT scan. Suspect occult malignancy. Blood culture reveals no growth. Sputum culture revealed no growth. White count 8.2. Hemoglobin 14.1. Platelets 119. Sodium 138. Potassium 4.6. Bicarb 28. BUN 24. Creatinine 1.07. Glucose 120. AST 110. ALT 90. Carcinoembryonic antigen 4441. CA 199 antigen 69.5. Remains on DuoNeb inhalations, Symbicort, IV Solu-Medrol. Antiemetics in the form of Zosyn. Anti coagulated with Xarelto. The patient is seen today 12/22/2022 in follow-up on the regular medical floor. He is awake and alert in no acute distress. In taking O2 saturations in the 90s on 2 L/m per nasal cannula. Computed tomography scan of the abdomen and pelvis revealed extensive 1-2 cm nodules diffusely throughout the left and right lobes of the liver suspicious for metastatic disease. Ultrasound of the liver revealed no acute process. There is a nodular contour to the liver compatible with cirrhosis. Nonspecific nodular changes could be related to portal hypertension/regenerative nature the liver parenchymal versus underlying infiltrative HCC which is felt to be less likely. Blood cultures reveal no growth. Sputum culture revealed no growth. Blood glucose 126.. Remains on Du oNeb inhalations, Symbicort, Solu-Medrol. Heparin for DVT prophylaxis. The plan is for colonoscopy. Anticoagulants on hold. The patient is seen today 12/23/2022 in follow-up on the regular medical floor. He is sitting up in bed. Awake and alert in no acute distress. Stating his pain is well controlled currently. He is maintaining O2 saturations in the low 90s on 4 L/m per nasal cannula. Afebrile. Hemodynamically stable. Blood cultures revealed no growth. Sputum cultures revealed no growth. White count 8.1. Hemoglobin 13.6. Platelets 124. Sodium 1:30. Potassium 43.5. Bicarb 23 . BUN 19. Creatinine 0.7. Calcium 8.5. Awaiting EGD/colonoscopy today. The patient is seen today 12/24/2022 in follow-up on the regular medical floor. He is currently sitting up at the bedside. He is having quite a bit of abdominal discomfort this morning. More so than his initial complaints. He did undergo EGD yesterday that revealed a small hiatal hernia and mild gastritis. Colonoscopy revealed a 5 mm cecal and a 1 cm ascending colon polyps status post biopsies. Pathology pending. No masses identified. He will still need a liver biopsy. Glucose 92. He is continued on DuoNeb inhalations, Symbicort, prednisone taper. Heparin for DVT prophylaxis. The patient is seen today 12/25/2022 in follow-up on the regular medical floor. He is sitting in bed. Awake and alert in no acute distress. Vital having some ongoing issues with abdominal discomfort and bilateral rib pain. He is still requiring 4 L/m per nasal cannula with O2 saturations at 88% this morning. A follow-up chest x-ray revealed some developing atelectasis of the left lung base. He is currently on DuoNeb inhalations, Symbicort, prednisone taper. Heparin for DVT prophylaxis. He is afebrile. Hemodynamically stable. Awaiting liver biopsy. Remains off Plavix, aspirin and Xarelto. Objective - Vital Signs Vital signs: Vital Signs Temp 97.5 F L 12/25/22 07:35 Pulse 91 12/25/22 07:35 Resp 20 12/25/22 07:35 BP 124/78 12/25/22 07:35 Pulse Ox 88 L 12/25/22 09:12 FiO2 Intake & Output 12/24/22 12/25/22 12/25/22 18:59 06:59 18:59 Output Total 700 Balance -700 Output: Urine 700 Other: Voiding Method Urinal Urinal Urinal - Exam GENERAL EXAM: Alert, oriented 67-year-old male, on 4 liters nasal cannula, in no acute distress. HEAD: Normocephalic. EYES: Normal reaction of pupils, equal size. NOSE: Clear with pink turbinates. THROAT: No erythema or exudates. NECK: No masses, no JVD. CHEST: No chest wall deformity. Bilateral chest wall pain LUNGS: Equal air entry with few crackles in the left base. CVS: S1 and S2 normal with no audible murmur, regular rhythm. ABDOMEN: Distended, tender, normal bowel sounds, no guarding or rigidity. SPINE: No scoliosis or deformity SKIN: No rashes CENTRAL NERVOUS SYSTEM: No focal deficits, tone is normal in all 4 extremities. EXTREMITIES: There is no peripheral edema. No clubbing, no cyanosis. Periph eral pulses are intact. - Labs CBC & Chem 7: 12/23/22 05:25 12/23/22 05:25 Labs: Abnormal Lab Results - Last 24 Hours (Table) 12/24/22 12/24/22 12/25/22 Range/Units 17:24 19:54 07:35 POC Glucose (mg/dL) 128 H 138 H 132 H (70-110) mg/dL Assessment and Plan Assessment: Diffuse skeletal pain involving the chest wall and back. Bone scan did reveal marked heterogenous uptake involving the bilateral rib cage, vertebral column, pelvis and calvarium appears to correspond to abnormal marrow appearance of the visualized osseous structures on CAT scan. Suspect malignancy. Carcinoembryonic antigen 4441. CA 199 antigen 69.5. Colonoscopy from 12/23/2022 revealed a 5 mm cecal and a 1 cm ascending colon polyps status post biopsies. Pathology pending. No masses identified. He will need a liver biopsy. Xarelto, Aspirin and Plavix remain on hold. Computed tomography scan of the abdomen revealed innumerable small nodules throughout the liver. Heterogenous appearance to the osseous structures. Given the liver findings, correlate for potential infiltrative disease or diffuse osseous metastatic disease. Hypercalcemia. Received Zometa. Calcium level is down to 8.5. Acute hypoxemic respiratory failure secondary to an acute exacerbation of chronic obstructive pulmonary disease Left lower lobe pulmonary nodule measuring 1.5 cm, will need an outpatient PET CT and further investigation. Probable metastatic disease to the lung. Coronary artery disease Vascular disease with a previous fem-pop bypass surgery Bilateral carotid endarterectomies Coronary artery disease and coronary stenting Previous history of CVA Previous history of DVT of the left lower extremity Previous history of Covid 19 infection in February 2021 Hypertension Hyperlipidemia Abnormal LFTs with cholelithiasis without evidence of cholecystitis History of nephrolithiasis Plan: The patient was seen and evaluated Chest x-ray, CT abdomen, medications reviewed Discontinue prednisone Initiate back on Solu-Medrol Add incentive spirometer Give Lasix 40 mg IVP 1 Check a pro-calcitonin Increase his activity as tolerated Liver biopsy pending Continue to hold anticoagulants Heparin for DVT prophylaxis Titrate down the FiO2 as tolerated We will continue to follow I have personally seen and examined the patient, performed the documentation and the assessment and plan as written. Number of minutes spent on the visit: 10.
[2022-12-25 12:31] LABS: Glucose,Whole Blood 202 mg/dL (70-110)
[2022-12-25] MEDS: methylPREDNISolone SOD SUCCI 40 MG/ML 1 ML VIAL IV SCH (16:51)
[2022-12-25 17:43] LABS: Glucose,Whole Blood 159 mg/dL (70-110)
--- NOTE | 2022-12-25 18:23 | P.PN ---
Subjective 67-year-old male was admitted to the hospital with complaints of abdominal pain and found to have cholelithiasis and cholecystitis. Patient also has hypercalcemia. 12/20/2022 Patient is currently lying in the bed. Awake alert and oriented x3. Anxious. Complains of both right upper and and left upper quadrant abdominal pain below the rib cage. Also complaining of back pain. No complaints of nausea vomiting. Patient underwent bone scan today. Due to hypercalcemia. Oncology and nephrology is on board. Laboratory data showed WBC 10.8 hemoglobin 15.1 and platelets 132 BUN 31.4 and creatinine 1.2 and bicarb level is 20.4 anion gap 14.6. Calcium level 12.6. Tumor markers were ordered. 12/21/2022 Patient is currently lying in bed. Awake alert and oriented x3. On oxygen at 4 L via nasal cannula. Still complains of pain below the rib cage. Bone scan was done yesterday showed a markedly heterogenous uptake involving the bilateral rib cage, vertebral column pelvis and calvarium appears to correspond to abnormal marrow appearance of the visualized osseous structures of the CAT scan. Suspect occult malignancy. Otherwise patient is being continued on IV Solu-Medrol DuoNebs and antibiotics and home Zosyn. Also on anticoagulation with Xarelto. Laboratory data showed WBC 8.2 hemoglobin 14.1 and platelets 119 Sodium 138 potassium 4.6 chloride 105 bicarb is 28 BUN 24 and creatinine 1.07 AST 110 ALT 90 alk phos 160. 12/22/2022 Patient is currently lying in bed. Complains of pain. Currently on [place] and morphine sustained-release was ordered. IR guided biopsy of the liver lesion could not be done due to patient being on anticoagulation. Oncology recommends endoscopic evaluation at this time. Otherwise CT of the abdomen pelvis done yesterday showed extensive 1 to 2 cm nodules diffusely throughout the left and right lobes of the liver suspicious for metastatic disease. CEA level is elevated. Laboratory data reviewed. 2022 Patient was admitted to the hospital due to bilateral rib cage pain and hypercalcemia and work-up in process for malignancy. Currently lying in the bed. Awake alert and oriented. No complaints of fever or chills. Currently on 4 L via nasal cannula. Continued on prednisone 30 mg daily. Also, DuoNebs and anticoagulation. Patient is scheduled for EGD and colonoscopy today. Otherwise cultures showed no growth. Patient is off antibiotics currently. Laboratory data showed WBC 8.1 hemoglobin 13.6 and platelets 124 BUN 19.3 and creatinine 0.7. Calcium level came down to 8.5. 12/24/2022 Patient is today had EGD and colonoscopy showing small hiatal hernia and cecal polyp which was removed. No other significant abnormality. Patient had repeat CT of the abdomen and pelvis today showing multiple nodules of the liver suspicious for liver cirrhosis versus metastatic disease area Heterogenous appearance of the osseous structures suspicious for metastatic disease. Moderate to severe stenosis of bilateral iliac arteries and right renal artery. As well as SMA. Cholelithiasis and diverticulitis. Prostate gland calcification 1.1 cm. 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 There was possible to discharge and the patient and do the procedure as an outpatient and follow-up with oncologist as an outpatient on , however patient still complaining of from severe bilateral rib cage pain and tenderness related most likely due to metastatic disease. Upon consult is obtained. Also patient most likely will have biopsy next week. Discussed with staff 12/25/2022 Patient today looks less lethargic and sitting up in chair, however he is more short of breath and Solu-Medrol is adequate. Repeat chest x-ray showed possible right lower pneumonia and Zosyn is added. proCalcitonin is pending. Also liver biopsy is pending Objective - Vital Signs Vital signs: Vital Signs Temp 98.4 F 12/25/22 14:08 Pulse 86 12/25/22 18:08 Resp 18 12/25/22 14:08 BP 93/51 12/25/22 14:08 Pulse Ox 92 L 12/25/22 14:08 FiO2 Intake & Output 12/24/22 12/25/22 12/25/22 18:59 06:59 18:59 Intake Total 800 Output Total 700 1300 Balance -700 -500 Intake: Oral 800 Output: Urine 700 1300 Straight 1000 Other: Voiding Method Urinal Urinal Urinal # Voids 3 - Exam -GENERAL: The patient is alert and oriented x3, less lethargic not in any acute distress. Well developed, well nourished. HEENT: Pupils are round and equally reacting to light. EOMI. No scleral icterus. No conjunctival pallor. Normocephalic, atraumatic. No pharyngeal erythema. No thyromegaly. CARDIOVASCULAR: S1 and S2 present. No murmurs, rubs, or gallops. -PULMONARY: Chest is clear to auscultation, no wheezing , no crackles. Bilateral rib care teaching tenderness ABDOMEN: Soft, nontender, nondistended, normoactive bowel sounds. No palpable organomegaly. MUSCULOSKELETAL: No joint swelling or deformity. EXTREMITIES: No cyanosis, clubbing, or pedal edema. NEUROLOGICAL: Gross neurological examination did not reveal any focal deficits. SKIN: No rashes. no petechiae. - Labs CBC & Chem 7: 12/23/22 05:25 12/23/22 05:25 Labs: Abnormal Lab Results - Last 24 Hours (Table) 12/24/22 12/25/22 12/25/22 Range/Units 19:54 07:35 12:29 POC Glucose (mg/dL) 138 H 132 H 202 H (70-110) mg/dL 12/25/22 Range/Units 17:42 POC Glucose (mg/dL) 159 H (70-110) mg/dL Assessment and Plan Assessment: Liver cirrhosis, cannot rule out malignancy given multiple nodules and will require liver biopsy Bilateral rib cage pain and tenderness related to possible metastatic osseous disease. Hypercalcemia and pain below the rib cage and also back pain. Malignancy work- up in process. Bone scan showed a markedly heterogenous uptake involving the bilateral rib cage, vertebral column pelvis and calvarium appears to correspond to abnormal marrow appearance of the visualized osseous structures of the CAT scan. Suspect occult malignancy. COPD with no exacerbation Left lower lobe pulmonary nodule measuring 1.5 cm. Outpatient PET scan recomme nded by pulmonary. Coronary artery disease with prior history of stent placement History of CVA Peripheral vascular disease with previous history of femoropopliteal bypass surgery. Bilateral carotid endarterectomies History of DVT left lower extremity History of CVA/TIA Hypertension Hyperlipidemia Elevated liver enzymes and cholelithiasis without evidence of cholecystitis. History of nephrolithiasis Plan: Consult pain management Started on Zosyn and IV Solu-Medrol Plan for liver biopsy next week Several consultants on the case including hematology/oncology, pulmonary service and GI service. Labs and medication were reviewed.. Continue same treatment. Continue with symptomatic treatment. Resume home medication. Monitor labs and vitals. DVT and GI prophylaxis. Further recommendations as per clinical course of the patient DVT prophylaxis: Subcutaneous heparin GI Prophylaxis: Ppi PT/OT: Pending Prognosis is guarded
[2022-12-25] MEDS: PIPERACILLIN-TAZOBACTAM 3.375 GM in SODIUM CHLORIDE 0.9% 100 ML IVPB SCH (18:59)
[2022-12-25 20:36] LABS: Glucose,Whole Blood 146 mg/dL (70-110)
[2022-12-25] MEDS: ATORVASTATIN 80 MG TAB PO SCH (20:53)
[2022-12-25] MEDS: amLODIPine 10 MG TAB PO SCH (20:54)
[2022-12-26] MEDS: methylPREDNISolone SOD SUCCI 40 MG/ML 1 ML VIAL IV SCH ×4 (01:07→23:22)
[2022-12-26] MEDS: HEPARIN SODIUM,PORCINE/PF 5,000 UNIT/0.5 ML SYRINGE SQ SCH ×4 (01:08→23:22)
[2022-12-26] MEDS: MORPHINE SULFATE 4 MG/ML SYRINGE IVP PRN ×5 (01:29→23:21)
[2022-12-26] MEDS: PIPERACILLIN-TAZOBACTAM 3.375 GM in SODIUM CHLORIDE 0.9% 100 ML IVPB SCH ×3 (03:36→17:17)
[2022-12-26 07:24] LABS: Glucose,Whole Blood 141 mg/dL (70-110)
[2022-12-26] MEDS: INSULIN ASPART (NovoLOG) 100 UNIT/ML VIAL SQ SCH ×4 (07:30→22:03)
[2022-12-26 08:31] LABS: African American GFR (CKD) >90 (>60 ml/min/1.73 sqM); Anion Gap 6 mmol/L; Blood Urea Nitrogen 16 mg/dL (9-20); Calcium 7.4 mg/dL (8.4-10.2); Carbon Dioxide 26 mmol/L (22-30); Chloride 106 mmol/L (98-107); Glucose 118 mg/dL (74-99); Non-African American GFR(CKD) >90 (>60 ml/min/1.73 sqM); Potassium 4.2 mmol/L (3.5-5.1); Sodium 138 mmol/L (137-145)
[2022-12-26 08:33] LABS: Basophils % (A) 0 %; Eosinophils % (A) 0 %; HCT 39.9 % (39.0-53.0); HGB 13.5 gm/dL (13.0-17.5); Lymphocytes # (A) 0.5 k/uL (1.0-4.8); Lymphocytes % (A) 9 %; MCH 32.9 pg (25.0-35.0); MCHC 33.8 g/dL (31.0-37.0); MCV 97.6 fL (80.0-100.0); Mean Platelet Volume 8.1; Monocytes # (A) 0.3 k/uL (0-1.0); Monocytes % (A) 5 %; Neutrophils # (A) 4.6 k/uL (1.3-7.7); Neutrophils % (A) 84 %; RBC 4.09 m/uL (4.30-5.90); RDW 13.6 % (11.5-15.5); WBC 5.4 k/uL (3.8-10.6)
[2022-12-26] MEDS: GABAPENTIN 300 MG CAP PO SCH ×2 (08:47→22:03)
[2022-12-26] MEDS: SENNOSIDES-DOCUSATE SODIUM 1 EACH TAB PO SCH ×2 (08:47→22:03)
[2022-12-26] MEDS: oxyCODONE ER 15 MG TAB.ER.12H PO SCH ×2 (08:48→22:08)
[2022-12-26] MEDS: THIAMINE 100 MG TAB PO SCH (08:48)
[2022-12-26] MEDS: EZETIMIBE 10 MG TAB PO SCH (08:48)
[2022-12-26] MEDS: PANTOPRAZOLE 40 MG/10 ML VIAL IV SCH ×2 (08:48→22:02)
[2022-12-26] MEDS: DULoxetine HCL 30 MG CAPSULE.DR PO SCH ×2 (08:48→22:03)
[2022-12-26] MEDS: BACLOFEN 10 MG TAB PO SCH ×2 (08:48→22:03)
[2022-12-26] MEDS: LOSARTAN 50 MG TAB PO SCH (08:48)
[2022-12-26] MEDS: METOPROLOL TARTRATE 25 MG TAB PO SCH ×2 (08:48→22:03)
[2022-12-26] MEDS: SYMBICORT 160-4.5 MCG INHALER INHALATION SCH ×2 (09:12→20:22)
[2022-12-26] MEDS: IPRATROPIUM-ALBUTEROL 3 ML NEB INHALATION SCH ×4 (09:12→20:21)
--- NOTE | 2022-12-26 10:33 | CT ---
EXAMINATION TYPE: CT angio chest CT DLP: 644.6 mGycm, Automated exposure control for dose reduction was used. DATE OF EXAM: 12/26/2022 10:17 AM COMPARISON: CTA chest 12/18/2022, 11/17/2022, chest radiograph 12/25/2022. CLINICAL INDICATION:Male, 67 years old with history of Shortness of breath; Shortness of breath, hypo amina, COPD TECHNIQUE/CONTRAST: CTA scan of the thorax is performed with IV Contrast, patient injected with 100 mL of Isovue 370, pul monary embolism protocol. MIP images are created and reviewed. FINDINGS: Pulmonary Artery: There is no evidence for a filling defect within the pulmonary vasculature to sugge st acute pulmonary embolism. The pulmonary artery is of normal size. Lungs/Pleura: Mild centrilobular emphysematous changes. Medial right lower lobe consolidation with vo lume loss consistent with atelectasis. Left basilar sulci atelectasis. No pneumothorax. Stable left l ower lobe 1.6 cm pulmonary nodule (series 5, image 64). Airway: Large airways are patent. Heart: The heart is mildly enlarged for size.. No pericardial effusion. Moderate coronary arterial ca lcifications. Vasculature: No evidence of aortic aneurysm. Atherosclerotic calcification of the aorta. Again occlus ion of the origin of the left common carotid artery. Mediastinum: No evidence of adenopathy. Musculoskeletal: No acute osseous abnormalities. Redemonstration of T7 compression deformity with loyd roximately 50% height loss and no retropulsion. Remote right-sided rib fractures. Soft Tissues: Minimal bilateral gynecomastia. Lower neck: No significant findings. Upper Abdomen: Hepatic cirrhotic morphology with nodular contour and widened fissures. Cholelithiasis . Fatty infiltration of the pancreas.. IMPRESSION: 1. No evidence of pulmonary embolism. 2. Medial right lower lobe consolidation with volume loss consistent with atelectasis. 3. Redemonstration of a left lower lobe 1.6 cm pulmonary nodule. Consider further evaluation with PET /CT to evaluate for malignancy. 4.Mild COPD changes. 5.Chronic T7 compression deformity. 6. Hepatic cirrhosis. 7. Cholelithiasis.
[2022-12-26 11:50] LABS: Platelet Count 80 k/uL (150-450); RBC Morphology Normal
[2022-12-26 12:02] LABS: Glucose,Whole Blood 208 mg/dL (70-110)
--- NOTE | 2022-12-26 12:54 | P.PN ---
Subjective Progress Note Date: 12/26/22 Principal diagnosis: Acute hypercalcemia, strongly suspect skeletal metastasis. 67-year-old male patient was transferred to us from [facility] for diffuse pain. The pain is mainly across his chest and upper abdomen and across the rib cage addition to chronic back pain. Is known to have chronic dyspnea and the patient is noted COPD and a left lung pulmonary nodule that has been followed up on outpatient basis. Initially went to [facility] and his calcium level was noted to be elevated. Based on his ongoing symptoms, he was referred to us. His current calcium level is at 13. He did not have any previous issues with hypercalcemia. Is known to have COPD, pulmonary nodule, coronary artery disease and extensive peripheral vascular disease and the patient has undergone previous vascular bypass surgery and stenting to the lower extremities. He is also known to have previous history of DVT. Maintain on long-term anticoagulants. At the same time, the patient has hypertension, hyperlipidemia, obesity, chronic back pain and a recent MRI from August 2022 showed wedging of the L2 spine in the order of 15% without any acute fractures. There is also multilevel spondylitic changes and mildly prominent narrowing due to facet arthropathy and disc space narrowing at the level of L4-L5 and old compression fracture the level of L2. Mild edema in the anterior L3 vertebral and posterior L5 vertebral and there is no evidence of any significant lumbar stenosis. The computed tomography scan of the abdomen and pelvis that was done in 09/22/2022 showed moderate to severe narrowing throughout the bilateral external iliac arteries and a stent in the superficial femoral artery was patent on the left. There was cholelithiasis and moderate atherosclerotic changes throughout the abdominal aorta and colonic diverticulosis. There are atelectatic changes in the right posterior base. The abdomen is gravid 7.6, hemoglobin is 15.4 and platelet count is 135. LFTs are abnormal with a AST of 105, ALT 121 and alkaline phosphatase of 193. Bilirubin is at 0.5. Covid 19 testing is negative. Creatinine is at 1.1. On 12/19/2022, the patient is stab le without any change in his condition. On 12/19/2022, the patient is stable without any changes condition. Calcium level today is at 12.8. Awaiting further workup. Remains on IV fluids and Zosyn. Remains on anticoagulation with is xarelto The patient is seen today 12/20/2022 in follow-up on the regular medical floor. He is awake and alert in no acute distress. Resting fairly comfortably in bed. Still having some bilateral chest wall discomfort and rib pain. A culture revealing no growth to date. Sodium 143. Potassium 4.1. Bicarb 20. BUN 31. Creatinine 1.2. Glucose 115. AST 125. ALT 103. Pro-calcitonin 0.11. Continue bronchodilators and steroids. Antibiotics in the form of Zosyn. Anticoagulated with Xarelto. Receiving normal saline at 75 ML's per hour. The patient is seen today 12/21/2022 in follow-up on the regular medical floor. He is currently sitting up in bed. Awake and alert in no acute distress. Maintaining O2 saturations in the 90s on 4 L nasal cannula. Afebrile. Hemodynamically stable. Still with some bilateral rib pain. Bone scan did reveal marketed heterogenous uptake involving the bilateral rib cage, vertebral column, pelvis and calvarium appears to correspond to abnormal marrow appearance of the visualized osseous structures on CAT scan. Suspect occult malignancy. Blood culture reveals no growth. Sputum culture revealed no growth. White count 8.2. Hemoglobin 14.1. Platelets 119. Sodium 138. Potassium 4.6. Bicarb 28. BUN 24. Creatinine 1.07. Glucose 120. AST 110. ALT 90. Carcinoembryonic antigen 4441. CA 199 antigen 69.5. Remains on DuoNeb inhalations, Symbicort, IV Solu-Medrol. Antiemetics in the form of Zosyn. Anticoagulated with Xarelto. The patient is seen today 12/22/2022 in follow-up on the regular medical floor. He is awake and alert in no acute distress. In taking O2 saturations in the 90s on 2 L/m per nasal cannula. Computed tomography scan of the abdomen and pelvis revealed extensive 1-2 cm nodules diffusely throughout the left and right lobes of the liver suspicious for metastatic disease. Ultrasound of the liver revealed no acute process. There is a nodular contour to the liver compatible with cirrhosis. Nonspecific nodular changes could be related to portal hypertension/regenerative nature the liver parenchymal versus underlying infiltrative HCC which is felt to be less likely. Blood cultures reveal no growth. Sputum culture revealed no growth. Blood glucose 126.. Remains on DuoNeb inhalations, Symbicort, Solu-Medrol. Heparin for DVT prophylaxis. The plan is for colonoscopy. Anticoagulants on hold. The patient is seen today 12/23/2022 in follow-up on the regular medical floor. He is sitting up in bed. Awake and alert in no acute distress. Stating his pain is well controlled currently. He is maintaining O2 saturations in the low 90s on 4 L/m per nasal cannula. Afebrile. Hemodynamically stable. Blood cultures revealed no growth. Sputum cultures revealed no growth. White count 8.1. Hemoglobin 13.6. Platelets 124. Sodium 1:30. Potassium 43.5. Bicarb 23. BUN 19. Creatinine 0.7. Calcium 8.5. Awaiting EGD/colonoscopy today. The patient is seen today 12/24/2022 in follow-up on the regular medical floor. He is currently sitting up at the bedside. He is having quite a bit of abdominal discomfort this morning. More so than his initial complaints. He did undergo EGD yesterday that revealed a small hiatal hernia and mild gastritis. Colonoscopy revealed a 5 mm cecal and a 1 cm ascending colon polyps status post biopsies. Pathology pending. No masses identified. He will still need a liver biopsy. Glucose 92. He is continued on DuoNeb inhalations, Symbicort, prednisone taper. Heparin for DVT prophylaxis. The patient is seen today 12/25/2022 in follow-up on the regular medical floor. He is sitting in bed. Awake and alert in no acute distress. Vital having some ongoing issues with abdominal discomfort and bilateral rib pain. He is still requiring 4 L/m per nasal cannula with O2 saturations at 88% this morning. A follow-up chest x-ray revealed some developing atelectasis of the left lung base. He is currently on DuoNeb inhalations, Symbicort, prednisone taper. Heparin for DVT prophylaxis. He is afebrile. Hemodynamically stable. Awaiting liver biopsy. Remains off Plavix, aspirin and Xarelto. Reevaluated today on 12/26/2022, patient is feeling a bit better but his shortness of breath is a bit worse. Last chest x-ray showed atelectasis of the left base, patient is having today some cough, cough is productive with yellow phlegm, he was already placed on Zosyn empirically for his atelectasis, questionable pneumonia, today I am recommending a CT angiogram of the chest as the patient seems to be a high risk for pulmonary embolism considering his presumptive underlying GI malignancy . Follow-up CT angiogram showed no evidence of pulmonary embolism it did show medial right lower lobe consolidation and atelectasis with volume loss, and left basilar atelectasis. Nonetheless patient is on antibiotics empirically although clinically I still doubt pneumonia being the findings are mostly findings of atelectasis. Objective - Vital Signs Vital signs: Vital Signs Temp 97.6 F 12/26/22 07:24 Pulse 88 12/26/22 12:08 Resp 20 12/26/22 07:24 BP 174/82 12/26/22 07:24 Pulse Ox 94 L 12/26/22 09:12 FiO2 Intake & Output 12/25/22 12/26/22 12/26/22 18:59 06:59 18:59 Intake Total 800 Output Total 1300 300 400 Balance -500 -300 -400 Intake: Oral 800 Output: Urine 1300 300 400 Straight 1000 Other: Voiding Method Urinal Urinal Urinal # Voids 3 1 - Exam Physical Exam: Revealed a 67-year-old white male in no distress on 4 L nasal cannula Head: Atraumatic normocephalic. HEENT:[Neck is supple.] [No neck masses.] [No thyromegaly.] [No JVD.] Chest: [Diminished breath sounds at the bases no rhonchi and no wheezes Cardiac Exam: [Normal S1 and S2, no S3 gallop, no murmur.] Abdomen: [Soft, nontender, no megaly, no rebound, no guarding, normal bowel sounds.] Extremities: [No clubbing, no edema, no cyanosis.] Neurological Exam: [No focal neurologic deficit.] Alert and oriented 3. Psychiatric: Normal mood affect and normal mental status examination. Skin: No rashes - Labs CBC & Chem 7: 12/26/22 05:55 12/26/22 05:55 Labs: Abnormal Lab Results - Last 24 Hours (Table) 12/25/22 12/25/22 12/25/22 Range/Units 10:26 17:42 20:35 RBC (4.30-5.90) m/uL Plt Count (150-450) k/uL Lymphocytes # (1.0-4.8) k/uL Glucose (74-99) mg/dL POC Glucose (mg/dL) 159 H 146 H (70-110) mg/dL Calcium (8.4-10.2) mg/dL Procalcitonin 0.26 H (0.02-0.09) ng/mL 12/26/22 12/26/22 12/26/22 Range/Units 05:55 05:55 07:22 RBC 4.09 L (4.30-5.90) m/uL Plt Count 80 L (150-450) k/uL Lymphocytes # 0.5 L (1.0-4.8) k/uL Glucose 118 H (74-99) mg/dL POC Glucose (mg/dL) 141 H (70-110) mg/dL Calcium 7.4 L (8.4-10.2) mg/dL Procalcitonin (0.02-0.09) ng/mL 12/26/22 Range/Units 12:01 RBC (4.30-5.90) m/uL Plt Count (150-450) k/uL Lymphocytes # (1.0-4.8) k/uL Glucose (74-99) mg/dL POC Glucose (mg/dL) 208 H (70-110) mg/dL Calcium (8.4-10.2) mg/dL Procalcitonin (0.02-0.09) ng/mL Assessment and Plan Assessment: Impression: Diffuse skeletal pain involving the chest wall and back. Bone scan did reveal marked heterogenous uptake involving the bilateral rib cage, vertebral column, pelvis and calvarium appears to correspond to abnormal marrow appearance of the visualized osseous structures on CAT scan. Suspect malignancy. Carcinoembryonic antigen 4441. CA 199 antigen 69.5. Colonoscopy from 12/23/2022 revealed a 5 mm cecal and a 1 cm ascending colon polyps status post biopsies. Pathology pending. No masses identified. He will need a liver biopsy. Xarelto, Aspirin and Plavix remain on hold. Computed tomography scan of the abdomen revealed innumerable small nodules throughout the liver. Heterogenous appearance to the osseous structures. Given the liver findings, correlate for potential infiltrative disease or diffuse osseous metastatic disease. Hypercalcemia. Received Zometa. Calcium remains normal Acute hypoxemic respiratory failure secondary to an acute exacerbation of chronic obstructive pulmonary disease, suspect bibasilar atelectasis, doubt pneumonia Left lower lobe pulmonary nodule measuring 1.6 cm, will need an outpatient PET CT and further investigation. Probable metastatic disease to the lung. Coronary artery disease Vascular disease with a previous fem-pop bypass surgery Bilateral carotid endarterectomies Coronary artery disease and coronary stenting Previous history of CVA Previous history of DVT of the left lower extremity Previous history of Covid 19 infection in February 2021 Hypertension Hyperlipidemia Abnormal LFTs with cholelithiasis without evidence of cholecystitis History of nephrolithiasis Recommendation: Continue present supportive care measures Continue bronchodilators Continue Solu-Medrol Continue incentive spirometry Continue empiric antibiotics Hopefully the patient could have a CT guided needle biopsy of liver lesions and have a final diagnoses on this patient. We will continue to follow. Time with Patient: Less than 30
[2022-12-26 17:21] LABS: Glucose,Whole Blood 168 mg/dL (70-110)
--- NOTE | 2022-12-26 21:59 | P.PN ---
Subjective 67-year-old male was admitted to the hospital with complaints of abdominal pain and found to have cholelithiasis and cholecystitis. Patient also has hypercalcemia. 12/20/2022 Patient is currently lying in the bed. Awake alert and oriented x3. Anxious. Complains of both right upper and and left upper quadrant abdominal pain below the rib cage. Also complaining of back pain. No complaints of nausea vomiting. Patient underwent bone scan today. Due to hypercalcemia. Oncology and nephrology is on board. Laboratory data showed WBC 10.8 hemoglobin 15.1 and platelets 132 BUN 31.4 and creatinine 1.2 and bicarb level is 20.4 anion gap 14.6. Calcium level 12.6. Tumor markers were ordered. 12/21/2022 Patient is currently lying in bed. Awake alert and oriented x3. On oxygen at 4 L via nasal cannula. Still complains of pain below the rib cage. Bone scan was done yesterday showed a markedly heterogenous uptake involving the bilateral rib cage, vertebral column pelvis and calvarium appears to correspond to abnormal marrow appearance of the visualized osseous structures of the CAT scan. Suspect occult malignancy. Otherwise patient is being continued on IV Solu-Medrol DuoNebs and antibiotics and home Zosyn. Also on anticoagulation with Xarelto. Laboratory data showed WBC 8.2 hemoglobin 14.1 and platelets 119 Sodium 138 potassium 4.6 chloride 105 bicarb is 28 BUN 24 and creatinine 1.07 AST 110 ALT 90 alk phos 160. 12/22/2022 Patient is currently lying in bed. Complains of pain. Currently on [place] and morphine sustained-release was ordered. IR guided biopsy of the liver lesion could not be done due to patient being on anticoagulation. Oncology recommends endoscopic evaluation at this time. Otherwise CT of the abdomen pelvis done yesterday showed extensive 1 to 2 cm nodules diffusely throughout the left and right lobes of the liver suspicious for metastatic disease. CEA level is elevated. Laboratory data reviewed. 2022 Patient was admitted to the hospital due to bilateral rib cage pain and hypercalcemia and work-up in process for malignancy. Currently lying in the bed. Awake alert and oriented. No complaints of fever or chills. Currently on 4 L via nasal cannula. Continued on prednisone 30 mg daily. Also, DuoNebs and anticoagulation. Patient is scheduled for EGD and colonoscopy today. Otherwise cultures showed no growth. Patient is off antibiotics currently. Laboratory data showed WBC 8.1 hemoglobin 13.6 and platelets 124 BUN 19.3 and creatinine 0.7. Calcium level came down to 8.5. 12/24/2022 Patient is today had EGD and colonoscopy showing small hiatal hernia and cecal polyp which was removed. No other significant abnormality. Patient had repeat CT of the abdomen and pelvis today showing multiple nodules of the liver suspicious for liver cirrhosis versus metastatic disease area Heterogenous appearance of the osseous structures suspicious for metastatic disease. Moderate to severe stenosis of bilateral iliac arteries and right renal artery. As well as SMA. Cholelithiasis and diverticulitis. Prostate gland calcification 1.1 cm. 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 There was possible to discharge and the patient and do the procedure as an outpatient and follow-up with oncologist as an outpatient on , however patient still complaining of from severe bilateral rib cage pain and tenderness related most likely due to metastatic disease. Upon consult is obtained. Also patient most likely will have biopsy next week. Discussed with staff 12/25/2022 Patient today looks less lethargic and sitting up in chair, however he is more short of breath and Solu-Medrol is adequate. Repeat chest x-ray showed possible right lower pneumonia and Zosyn is added. proCalcitonin is pending. Also liver biopsy is pending 12/26/2022 pt is still lethargic but alert and awake , lying in bed with generalized weakness, he say his chest and rib cage pain is there but feels tolerable he remains on zosyn and solumedrol 40 mg pending liver bx cta of chst repeated today: neg for PE Objective - Vital Signs Vital signs: Vital Signs Temp 98.1 F 12/26/22 13:22 Pulse 80 12/26/22 20:33 Resp 18 12/26/22 13:22 BP 147/64 12/26/22 13:22 Pulse Ox 92 L 12/26/22 13:22 FiO2 Intake & Output 12/26/22 12/26/22 12/27/22 06:59 18:59 06:59 Output Total 300 1025 Balance -300 -1025 Output: Urine 300 1025 Other: Voiding Method Urinal Urinal # Voids 1 - Exam -GENERAL: The patient is alert and oriented x3, less lethargic not in any acute distress. Well developed, well nourished. HEENT: Pupils are round and equally reacting to light. EOMI. No scleral icterus. No conjunctival pallor. Normocephalic, atraumatic. No pharyngeal erythema. No thyromegaly. CARDIOVASCULAR: S1 and S2 present. No murmurs, rubs, or gallops. -PULMONARY: Chest is clear to auscultation, no wheezing , no crackles. Bilateral rib care teaching tenderness ABDOMEN: Soft, nontender, nondistended, normoactive bowel sounds. No palpable organomegaly. MUSCULOSKELETAL: No joint swelling or deformity. EXTREMITIES: No cyanosis, clubbing, or pedal edema. NEUROLOGICAL: Gross neurological examination did not reveal any focal deficits. SKIN: No rashes. no petechiae. - Labs CBC & Chem 7: 12/26/22 05:55 12/26/22 05:55 Labs: Abnormal Lab Results - Last 24 Hours (Table) 12/25/22 12/26/22 12/26/22 Range/Units 10:26 05:55 05:55 RBC 4.09 L (4.30-5.90) m/uL Plt Count 80 L (150-450) k/uL Lymphocytes # 0.5 L (1.0-4.8) k/uL Glucose (74-99) mg/dL POC Glucose (mg/dL) (70-110) mg/dL Calcium (8.4-10.2) mg/dL Procalcitonin 0.26 H 0.19 H (0.02-0.09) ng/mL 12/26/22 12/26/22 12/26/22 Range/Units 05:55 07:22 12:01 RBC (4.30-5.90) m/uL Plt Count (150-450) k/uL Lymphocytes # (1.0-4.8) k/uL Glucose 118 H (74-99) mg/dL POC Glucose (mg/dL) 141 H 208 H (70-110) mg/dL Calcium 7.4 L (8.4-10.2) mg/dL Procalcitonin (0.02-0.09) ng/mL 12/26/22 Range/Units 17:19 RBC (4.30-5.90) m/uL Plt Count (150-450) k/uL Lymphocytes # (1.0-4.8) k/uL Glucose (74-99) mg/dL POC Glucose (mg/dL) 168 H (70-110) mg/dL Calcium (8.4-10.2) mg/dL Procalcitonin (0.02-0.09) ng/mL Assessment and Plan Assessment: Liver cirrhosis, cannot rule out malignancy given multiple nodules and will require liver biopsy Bilateral rib cage pain and tenderness related to possible metastatic osseous disease. Hypercalcemia and pain below the rib cage and also back pain. Malignancy work- up in process. Bone scan showed a markedly heterogenous uptake involving the bilateral rib cage, vertebral column pelvis and calvarium appears to correspond to abnormal marrow appearance of the visualized osseous structures of the CAT scan. Suspect occult malignancy. COPD with no exacerbation Left lower lobe pulmonary nodule measuring 1.5 cm. Outpatient PET scan re commended by pulmonary. Coronary artery disease with prior history of stent placement History of CVA Peripheral vascular disease with previous history of femoropopliteal bypass surgery. Bilateral carotid endarterectomies History of DVT left lower extremity History of CVA/TIA Hypertension Hyperlipidemia Elevated liver enzymes and cholelithiasis without evidence of cholecystitis. History of nephrolithiasis Plan: Consult pain management Started on Zosyn and IV Solu-Medrol Plan for liver biopsy next week Several consultants on the case including hematology/oncology, pulmonary service and GI service. Labs and medication were reviewed.. Continue same treatment. Continue with symptomatic treatment. Resume home medication. Monitor labs and vitals. DVT and GI prophylaxis. Further recommendations as per clinical course of the patient DVT prophylaxis: Subcutaneous heparin GI Prophylaxis: Ppi PT/OT: Pending Prognosis is guarded
[2022-12-26] MEDS: amLODIPine 10 MG TAB PO SCH (22:02)
[2022-12-26] MEDS: ATORVASTATIN 80 MG TAB PO SCH (22:03)
[2022-12-27] MEDS: PIPERACILLIN-TAZOBACTAM 3.375 GM in SODIUM CHLORIDE 0.9% 100 ML IVPB SCH ×3 (03:08→17:18)
[2022-12-27] MEDS: MORPHINE SULFATE 4 MG/ML SYRINGE IVP PRN ×4 (03:09→17:52)
[2022-12-27 07:25] LABS: Glucose,Whole Blood 118 mg/dL (70-110)
[2022-12-27] MEDS: INSULIN ASPART (NovoLOG) 100 UNIT/ML VIAL SQ SCH ×4 (07:36→20:43)
[2022-12-27] MEDS: IPRATROPIUM-ALBUTEROL 3 ML NEB INHALATION SCH ×4 (08:46→21:15)
[2022-12-27] MEDS: SYMBICORT 160-4.5 MCG INHALER INHALATION SCH ×2 (08:46→21:15)
[2022-12-27] MEDS: GABAPENTIN 300 MG CAP PO SCH ×2 (09:35→20:43)
[2022-12-27] MEDS: oxyCODONE ER 15 MG TAB.ER.12H PO SCH (09:35)
[2022-12-27] MEDS: PANTOPRAZOLE 40 MG/10 ML VIAL IV SCH ×2 (09:36→20:43)
[2022-12-27] MEDS: EZETIMIBE 10 MG TAB PO SCH (09:36)
[2022-12-27] MEDS: HEPARIN SODIUM,PORCINE/PF 5,000 UNIT/0.5 ML SYRINGE SQ SCH ×3 (09:36→16:02)
[2022-12-27] MEDS: BACLOFEN 10 MG TAB PO SCH ×2 (09:36→20:42)
[2022-12-27] MEDS: METOPROLOL TARTRATE 25 MG TAB PO SCH ×2 (09:36→20:34)
[2022-12-27] MEDS: LOSARTAN 50 MG TAB PO SCH (09:36)
[2022-12-27] MEDS: THIAMINE 100 MG TAB PO SCH (09:36)
[2022-12-27] MEDS: methylPREDNISolone SOD SUCCI 40 MG/ML 1 ML VIAL IV SCH ×2 (09:36→16:26)
[2022-12-27] MEDS: SENNOSIDES-DOCUSATE SODIUM 1 EACH TAB PO SCH ×2 (09:36→20:43)
[2022-12-27] MEDS: DULoxetine HCL 30 MG CAPSULE.DR PO SCH ×2 (09:44→20:43)
[2022-12-27] MEDS ORDERED: FUROSEMIDE 10 MG/ML 4 ML VIAL IV STA (10:52)
--- NOTE | 2022-12-27 10:52 | P.PN ---
Subjective Progress Note Date: 12/27/22 67-year-old male patient was transferred to us from [facility] for diffuse pain. The pain is mainly across his chest and upper abdomen and across the rib cage addition to chronic back pain. Is known to have chronic dyspnea and the patient is noted COPD and a left lung pulmonary nodule that has been followed up on outpatient basis. Initially went to [facility] and his calcium level was noted to be elevated. Based on his ongoing symptoms, he was referred to us. His current calcium level is at 13. He did not have any previous issues with hypercalcemia. Is known to have COPD, pulmonary nodule, coronary artery disease and extensive peripheral vascular disease and the patie nt has undergone previous vascular bypass surgery and stenting to the lower extremities. He is also known to have previous history of DVT. Maintain on long-term anticoagulants. At the same time, the patient has hypertension, hyperlipidemia, obesity, chronic back pain and a recent MRI from August 2022 showed wedging of the L2 spine in the order of 15% without any acute fractures. There is also multilevel spondylitic changes and mildly prominent narrowing due to facet arthropathy and disc space narrowing at the level of L4-L5 and old compression fracture the level of L2. Mild edema in the anterior L3 vertebral and posterior L5 vertebral and there is no evidence of any significant lumbar st enosis. The computed tomography scan of the abdomen and pelvis that was done in 09/22/2022 showed moderate to severe narrowing throughout the bilateral external iliac arteries and a stent in the superficial femoral artery was patent on the left. There was cholelithiasis and moderate atherosclerotic changes throughout the abdominal aorta and colonic diverticulosis. There are atelectatic changes in the right posterior base. The abdomen is gravid 7.6, hemoglobin is 15.4 and platelet count is 135. LFTs are abnormal with a AST of 105, ALT 121 and alkaline phosphatase of 193. Bilirubin is at 0.5. Covid 19 testing is negative. Creatinine is at 1.1. On 12/19/2022, the patient is stable without any change in his condition. On 12/19/2022, the patient is stable without any changes condition. Calcium level today is at 12.8. Awaiting further workup. Remains on IV fluids and Zosyn. Remains on anticoagulation with is xarelto The patient is seen today 12/20/2022 in follow-up on the regular medical floor. He is awake and alert in no acute distress. Resting fairly comfortably in bed. Still having some bilateral chest wall discomfort and rib pain. A culture revealing no growth to date. Sodium 143. Potassium 4.1. Bicarb 20. BUN 31. Creatinine 1.2. Glucose 115. AST 125. ALT 103. Pro-calcitonin 0.11. Continue bronchodilators and steroids. Antibiotics in the form of Zosyn. Anticoagulated with Xarelto. Receiving normal saline at 75 ML's per hour. The patient is seen today 12/21/2022 in follow-up on the regular medical floor. He is currently sitting up in bed. Awake and alert in no acute distress. Maintaining O2 saturations in the 90s on 4 L nasal cannula. Afebrile. Hemodynamically stable. Still with some bilateral rib pain. Bone scan did reveal marketed heterogenous uptake involving the bilateral rib cage, vertebral column, pelvis and calvarium appears to correspond to abnormal marrow appearance of the visualized osseous structures on CAT scan. Suspect occult malignancy. Blood culture reveals no growth. Sputum culture revealed no growth. White count 8.2. Hemoglobin 14.1. Platelets 119. Sodium 138. Potassium 4.6. Bicarb 28. BUN 24. Creatinine 1.07. Glucose 120. AST 110. ALT 90. Carcinoembryonic antigen 4441. CA 199 antigen 69.5. Remains on DuoNeb inhalations, Symbicort, IV Solu-Medrol. Antiemetics in the form of Zosyn. Anti coagulated with Xarelto. The patient is seen today 12/22/2022 in follow-up on the regular medical floor. He is awake and alert in no acute distress. In taking O2 saturations in the 90s on 2 L/m per nasal cannula. Computed tomography scan of the abdomen and pelvis revealed extensive 1-2 cm nodules diffusely throughout the left and right lobes of the liver suspicious for metastatic disease. Ultrasound of the liver revealed no acute process. There is a nodular contour to the liver compatible with cirrhosis. Nonspecific nodular changes could be related to portal hypertension/regenerative nature the liver parenchymal versus underlying infiltrative HCC which is felt to be less likely. Blood cultures reveal no growth. Sputum culture revealed no growth. Blood glucose 126.. Remains on Du oNeb inhalations, Symbicort, Solu-Medrol. Heparin for DVT prophylaxis. The plan is for colonoscopy. Anticoagulants on hold. The patient is seen today 12/23/2022 in follow-up on the regular medical floor. He is sitting up in bed. Awake and alert in no acute distress. Stating his pain is well controlled currently. He is maintaining O2 saturations in the low 90s on 4 L/m per nasal cannula. Afebrile. Hemodynamically stable. Blood cultures revealed no growth. Sputum cultures revealed no growth. White count 8.1. Hemoglobin 13.6. Platelets 124. Sodium 1:30. Potassium 43.5. Bicarb 23 . BUN 19. Creatinine 0.7. Calcium 8.5. Awaiting EGD/colonoscopy today. The patient is seen today 12/24/2022 in follow-up on the regular medical floor. He is currently sitting up at the bedside. He is having quite a bit of abdominal discomfort this morning. More so than his initial complaints. He did undergo EGD yesterday that revealed a small hiatal hernia and mild gastritis. Colonoscopy revealed a 5 mm cecal and a 1 cm ascending colon polyps status post biopsies. Pathology pending. No masses identified. He will still need a liver biopsy. Glucose 92. He is continued on DuoNeb inhalations, Symbicort, prednisone taper. Heparin for DVT prophylaxis. The patient is seen today 12/25/2022 in follow-up on the regular medical floor. He is sitting in bed. Awake and alert in no acute distress. Vital having some ongoing issues with abdominal discomfort and bilateral rib pain. He is still requiring 4 L/m per nasal cannula with O2 saturations at 88% this morning. A follow-up chest x-ray revealed some developing atelectasis of the left lung base. He is currently on DuoNeb inhalations, Symbicort, prednisone taper. Heparin for DVT prophylaxis. He is afebrile. Hemodynamically stable. Awaiting liver biopsy. Remains off Plavix, aspirin and Xarelto. Reevaluated today on 12/26/2022, patient is feeling a bit better but his shortness of breath is a bit worse. Last chest x-ray showed atelectasis of the left base, patient is having today some cough, cough is productive with yellow phlegm, he was already placed on Zosyn empirically for his atelectasis, questionable pneumonia, today I am recommending a CT angiogram of the chest as the patient seems to be a high risk for pulmonary embolism considering his presumptive underlying GI malignancy . Follow-up CT angiogram showed no evidence of pulmonary embolism it did show medial right lower lobe consolidation and atelectasis with volume loss, and left basilar atelectasis. Nonetheless patient is on antibiotics empirically although clinically I still doubt pneumonia being the findings are mostly findings of atelectasis. The patient is seen today 12/27/2022 in follow-up on the regular medical floor. He is sitting up in bed. Awake and alert in no acute distress. CT angiogram ruled out pulmonary embolism. There is a medial right lower lobe consolidation with volume loss consistent with atelectasis. 1.6 cm pulmonary nodule in the left lower lobe. Mild COPD. He is maintaining O2 saturations in the 90s on 4 L/m per nasal cannula. Normal saline at KVO. Blood culture reveals no growth. Sputum culture revealed no growth. ProBNP 1610. Glucose 118. He is continued on DuoNeb inhalations, Symbicort, IV Solu-Medrol. Heparin for DVT prophylaxis. Antibiotics in the form of Zosyn. Objective - Vital Signs Vital signs: Vital Signs Temp 97.9 F 12/27/22 07:20 Pulse 89 12/27/22 09:03 Resp 18 12/27/22 07:20 BP 148/83 12/27/22 07:20 Pulse Ox 91 L 12/27/22 08:47 FiO2 Intake & Output 12/26/22 12/27/22 12/27/22 18:59 06:59 18:59 Intake Total 590 Output Total 1025 300 Balance -1025 290 Intake: Oral 590 Output: Urine 1025 300 Other: Voiding Method Urinal Urinal Urinal # Voids 1 - Exam GENERAL EXAM: Alert, oriented 67-year-old male patient, on 4 liters nasal cannula, in no acute distress. HEAD: Normocephalic. EYES: Normal reaction of pupils, equal size. NOSE: Clear with pink turbinates. THROAT: No erythema or exudates. NECK: No masses, no JVD. CHEST: No chest wall deformity. Bilateral chest wall pain LUNGS: Equal air entry with few crackles in the right base. CVS: S1 and S2 normal with no audible murmur, regular rhythm. ABDOMEN: Distended, tender, normal bowel sounds, no guarding or rigidity. SPINE: No scoliosis or deformity SKIN: No rashes CENTRAL NERVOUS SYSTEM: No focal deficits, tone is normal in all 4 extremities. EXTREMITIES: There is no peripheral edema. No clubbing, no cyanosis. Peripheral pulses are intact. - Labs CBC & Chem 7: 12/26/22 05:55 12/26/22 05:55 Labs: Abnormal Lab Results - Last 24 Hours (Table) 12/26/22 12/26/22 12/26/22 Range/Units 05:55 05:55 12:01 Plt Count 80 L (150-450) k/uL Lymphocytes # 0.5 L (1.0-4.8) k/uL POC Glucose (mg/dL) 208 H (70-110) mg/dL Procalcitonin 0.19 H (0.02-0.09) ng/mL 12/26/22 12/27/22 Range/Units 17:19 07:24 Plt Count (150-450) k/uL Lymphocytes # (1.0-4.8) k/uL POC Glucose (mg/dL) 168 H 118 H (70-110) mg/dL Procalcitonin (0.02-0.09) ng/mL Assessment and Plan Assessment: Diffuse skeletal pain involving the chest wall and back. Bone scan did reveal marked heterogenous uptake involving the bilateral rib cage, vertebral column, pelvis and calvarium appears to correspond to abnormal marrow appearance of the visualized osseous structures on CAT scan. Suspect malignancy. Carcinoembryonic antigen 4441. CA 199 antigen 69.5. Colonoscopy from 12/23/2022 revealed a 5 mm cecal and a 1 cm ascending colon polyps status post biopsies. Pathology pending. No masses identified. He will need a liver biopsy. Xarelto, Aspirin and Plavix remain on hold. Computed tomography scan of the abdomen revealed innumerable small nodules throughout the liver. Heterogenous appearance to the osseous structures. Given the liver findings, correlate for potential infiltrative disease or diffuse osseous metastatic disease. CT angiogram from 12/26/2022 ruled out pulmonary embolism. Hypercalcemia. Received Zometa. Calcium level is down to 8.5. Acute hypoxemic respiratory failure secondary to an acute exacerbation of chronic obstructive pulmonary disease Left lower lobe pulmonary nodule measuring 1.5 cm, will need an outpatient PET CT and further investigation. Probable metastatic disease to the lung Coronary artery disease Vascular disease with a previous fem-pop bypass surgery Bilateral carotid endarterectomies Coronary artery disease and coronary stenting Previous history of CVA Previous history of DVT of the left lower extremity Previous history of Covid 19 infection in February 2021 Hypertension Hyperlipidemia Abnormal LFTs with cholelithiasis without evidence of cholecystitis History of nephrolithiasis Plan: The patient was seen and evaluated CT angiogram, labs and medications reviewed Remains on Zosyn, bronchodilators, Solu-Medrol We'll give Lasix 40 mg IVP 1 today Increase his activity as tolerated Liver biopsy pending Continue to hold anticoagulants Heparin for DVT prophylaxis Titrate down the FiO2 as tolerated We will continue to follow I have personally seen and examined the patient, performed the documentation and the assessment and plan as written. Number of minutes spent on the visit: 10.
[2022-12-27 12:11] LABS: Glucose,Whole Blood 144 mg/dL (70-110)
[2022-12-27 17:24] LABS: Glucose,Whole Blood 123 mg/dL (70-110)
--- NOTE | 2022-12-27 18:21 | P.PN ---
Subjective Progress Note Date: 12/27/22 Principal diagnosis: Abdominal pain. Liver lesions. In follow-up today patient is sitting in the chair, he is having shortness of breath, he is on 5 L nasal cannula, he is not on oxygen at home. His abdomen is still very distended, the epigastric area is "hard" to palpation. The is noting swelling in his legs. Patient's pain is mostly across the abdomen Objective - Vital Signs Vital signs: Vital Signs Temp 97.6 F 12/27/22 12:05 Pulse 88 12/27/22 12:27 Resp 18 12/27/22 12:05 BP 103/68 12/27/22 12:05 Pulse Ox 92 L 12/27/22 12:05 FiO2 Intake & Output 12/26/22 12/27/22 12/27/22 18:59 06:59 18:59 Intake Total 590 Output Total 1025 300 762 Balance -1025 290 -762 Intake: Oral 590 Output: Urine 1025 300 500 Post Void Residual 262 Other: Voiding Method Urinal Urinal Urinal # Voids 1 - Constitutional General appearance: Present: cooperative, mild distress - EENT Eyes: Present: anicteric sclerae, EOMI ENT: Present: hearing grossly normal - Respiratory Details: Shallow, Rapid respirations, diminished bases - Cardiovascular Heart sounds: normal: S1, S2 Abnormal Heart Sounds: Absent: systolic murmur, diastolic murmur, rub, S3 Gallop, S4 Gallop, click, other - Peripheral edema leg Peripheral Edema: bilateral: 1+ - Gastrointestinal General gastrointestinal: Present: distended, tenderness - Integumentary Integumentary: Present: normal - Neurologic Neurologic: Present: CNII-XII intact (Grossly) - Musculoskeletal Musculoskeletal: Present: generalized weakness - Psychiatric Psychiatric: Present: A&O x's 3, appropriate affect, intact judgment & insight - Labs CBC & Chem 7: 12/26/22 05:55 12/26/22 05:55 Labs: Abnormal Lab Results - Last 24 Hours (Table) 12/26/22 12/26/22 12/27/22 Range/Units 05:55 17:19 07:24 POC Glucose (mg/dL) 168 H 118 H (70-110) mg/dL Procalcitonin 0.19 H (0.02-0.09) ng/mL 12/27/22 Range/Units 12:09 POC Glucose (mg/dL) 144 H (70-110) mg/dL Procalcitonin (0.02-0.09) ng/mL Assessment and Plan (1) Abdominal pain Current Visit: Yes Status: Acute Code(s): R10.9 - UNSPECIFIED ABDOMINAL PAIN SNOMED Code(s): 85269569 (2) Elevated tumor markers Current Visit: Yes Status: Acute Code(s): R97.8 - OTHER ABNORMAL TUMOR MARKERS SNOMED Code(s): 415794903 (3) Hypercalcemia Current Visit: Yes Status: Acute Priority: High Code(s): E83.52 - HYPERCALCEMIA SNOMED Code(s): 13279543 Plan: Hypercalcemia -Treated with calcitonin and zometa. Last calcium was 7.4 resulted on 12/26. -PTH significantly lower right 0.4. PTHrP is still pending Liver lesion -Case discussed with Interventional Radiology nurse. Radiologist reviewed the CT scan. [place] that a liver biopsy will not be possible because of small lesions, felt that it would be a random biopsy that would likely not yield a diagnosis. -Additional imaging was recommended. Ultimately, a PET scan is recommended to assess the avidity of the liver lesions as well as any other possible lesions that could be a target for biopsy -CEA elevated at 4441 -Patient do understand that there are concerns for malignancy, just pending a target for biopsy -Aspirin has been held -EGD and colonoscopy completed, cecal polyp and in ascending colon polyp. Pathology reporting tubular adenoma Abdominal pain -Secondary to significant abdominal distention -Reviewed patient's pain med usage over the last 24 hours. Discussed with PharmD. Extended release morphine Could be increased to as much as 60 mg twice a day. Increased to 40 mg for this evenings dose and will see how patient tolerates. Patient will continue on 4 mg IV push of morphine increased freq to every 3 hours. Recheck pain control in AM. -Medications for prevention of narcotic-induced constipation ordered Shortness of breath -When seen today breathing was labored. Patient was on 5 L of oxygen. He is not on oxygen at home. -Pulmonary notes reviewed. Lasix given to the patient today. -May consider asking Pulmonary for diagnostic thoracentesis if breathing not improved tomorrow attests: I have seen and examined patient, performed H&P, developed impression and plan of care. Discussed with dictator. Agree with dictation, documented as a scribe.
[2022-12-27 20:21] LABS: Glucose,Whole Blood 253 mg/dL (70-110)
[2022-12-27] MEDS: amLODIPine 10 MG TAB PO SCH (20:34)
[2022-12-27] MEDS: oxyCODONE ER 20 MG TAB.ER.12H PO SCH (20:42)
[2022-12-27] MEDS: ATORVASTATIN 80 MG TAB PO SCH (20:43)
--- NOTE | 2022-12-27 23:16 | P.PN ---
Subjective 67-year-old male was admitted to the hospital with complaints of abdominal pain and found to have cholelithiasis and cholecystitis. Patient also has hypercalcemia. 12/20/2022 Patient is currently lying in the bed. Awake alert and oriented x3. Anxious. Complains of both right upper and and left upper quadrant abdominal pain below the rib cage. Also complaining of back pain. No complaints of nausea vomiting. Patient underwent bone scan today. Due to hypercalcemia. Oncology and nephrology is on board. Laboratory data showed WBC 10.8 hemoglobin 15.1 and platelets 132 BUN 31.4 and creatinine 1.2 and bicarb level is 20.4 anion gap 14.6. Calcium level 12.6. Tumor markers were ordered. 12/21/2022 Patient is currently lying in bed. Awake alert and oriented x3. On oxygen at 4 L via nasal cannula. Still complains of pain below the rib cage. Bone scan was done yesterday showed a markedly heterogenous uptake involving the bilateral rib cage, vertebral column pelvis and calvarium appears to correspond to abnormal marrow appearance of the visualized osseous structures of the CAT scan. Suspect occult malignancy. Otherwise patient is being continued on IV Solu-Medrol DuoNebs and antibiotics and home Zosyn. Also on anticoagulation with Xarelto. Laboratory data showed WBC 8.2 hemoglobin 14.1 and platelets 119 Sodium 138 potassium 4.6 chloride 105 bicarb is 28 BUN 24 and creatinine 1.07 AST 110 ALT 90 alk phos 160. 12/22/2022 Patient is currently lying in bed. Complains of pain. Currently on [place] and morphine sustained-release was ordered. IR guided biopsy of the liver lesion could not be done due to patient being on anticoagulation. Oncology recommends endoscopic evaluation at this time. Otherwise CT of the abdomen pelvis done yesterday showed extensive 1 to 2 cm nodules diffusely throughout the left and right lobes of the liver suspicious for metastatic disease. CEA level is elevated. Laboratory data reviewed. 2022 Patient was admitted to the hospital due to bilateral rib cage pain and hypercalcemia and work-up in process for malignancy. Currently lying in the bed. Awake alert and oriented. No complaints of fever or chills. Currently on 4 L via nasal cannula. Continued on prednisone 30 mg daily. Also, DuoNebs and anticoagulation. Patient is scheduled for EGD and colonoscopy today. Otherwise cultures showed no growth. Patient is off antibiotics currently. Laboratory data showed WBC 8.1 hemoglobin 13.6 and platelets 124 BUN 19.3 and creatinine 0.7. Calcium level came down to 8.5. 12/24/2022 Patient is today had EGD and colonoscopy showing small hiatal hernia and cecal polyp which was removed. No other significant abnormality. Patient had repeat CT of the abdomen and pelvis today showing multiple nodules of the liver suspicious for liver cirrhosis versus metastatic disease area Heterogenous appearance of the osseous structures suspicious for metastatic disease. Moderate to severe stenosis of bilateral iliac arteries and right renal artery. As well as SMA. Cholelithiasis and diverticulitis. Prostate gland calcification 1.1 cm. 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 There was possible to discharge and the patient and do the procedure as an outpatient and follow-up with oncologist as an outpatient on , however patient still complaining of from severe bilateral rib cage pain and tenderness related most likely due to metastatic disease. Upon consult is obtained. Also patient most likely will have biopsy next week. Discussed with staff 12/25/2022 Patient today looks less lethargic and sitting up in chair, however he is more short of breath and Solu-Medrol is adequate. Repeat chest x-ray showed possible right lower pneumonia and Zosyn is added. proCalcitonin is pending. Also liver biopsy is pending 12/26/2022 pt is still lethargic but alert and awake , lying in bed with generalized weakness, he say his chest and rib cage pain is there but feels tolerable he remains on zosyn and solumedrol 40 mg pending [facility]: neg for PE 12/27/2022 pt clinically looks similar to the last few day, somewhat lewthargic and week , slighly tachypneic due to rib cage pain , tumour mass, and possible fluid overload. he is on 5 L of O2 via nasal cannula he supposed to get liver biopsy but per oncology input this may not be feasable as per notes from the IR team . other options are PET scan which is typically do ne as outpatient usually, or diagnostic thoracocentasis, we will defer to oncology team the decision on how to obtain the tissue diagnosis pt got one dose of lasix today which looks it helped him a little bit he is on zosyn and solumedrol 40 mg at bed side and all their questions were answered Objective - Vital Signs Vital signs: Vital Signs Temp 97.6 F 12/27/22 12:05 Pulse 88 12/27/22 12:27 Resp 18 12/27/22 12:05 BP 103/68 12/27/22 12:05 Pulse Ox 92 L 12/27/22 12:05 FiO2 Intake & Output 12/26/22 12/27/22 12/27/22 18:59 06:59 18:59 Intake Total 590 Output Total 2908 036 5731 Balance -1025 290 -1262 Intake: Oral 590 Output: Urine 5216 530 7485 Post Void Residual 262 Other: Voiding Method Urinal Urinal Urinal # Voids 1 1 - Exam -GENERAL: The patient is alert and oriented x3, less lethargic not in any acute distress. Well developed, well nourished. HEENT: Pupils are round and equally reacting to light. EOMI. No scleral icterus. No conjunctival pallor. Normocephalic, atraumatic. No pharyngeal erythema. No thyromegaly. CARDIOVASCULAR: S1 and S2 present. No murmurs, rubs, or gallops. -PULMONARY: Chest is clear to auscultation, no wheezing , no crackles. Bilateral rib care teaching tenderness ABDOMEN: Soft, nontender, nondistended, normoactive bowel sounds. No palpable organomegaly. MUSCULOSKELETAL: No joint swelling or deformity. EXTREMITIES: No cyanosis, clubbing, or pedal edema. NEUROLOGICAL: Gross neurological examination did not reveal any focal deficits. SKIN: No rashes. no petechiae. - Labs CBC & Chem 7: 12/26/22 05:55 12/26/22 05:55 Labs: Abnormal Lab Results - Last 24 Hours (Table) 12/26/22 12/27/22 12/27/22 Range/Units 17:19 07: 12:09 POC Glucose (mg/dL) 168 H 118 H 144 H (70-110) mg/dL Assessment and Plan Assessment: Liver cirrhosis, cannot rule out malignancy given multiple nodules and will require liver biopsy Bilateral rib cage pain and tenderness related to possible metastatic osseous disease. Hypercalcemia and pain below the rib cage and also back pain. Malignancy work- up in process. Bone scan showed a markedly heterogenous uptake involving the bilateral rib cage, vertebral column pelvis and calvarium appears to correspond to abnormal marrow appearance of the visualized osseous structures of the CAT scan. Suspect occult malignancy. COPD with no exacerbation Left lower lobe pulmonary nodule measuring 1.5 cm. Outpatient PET scan recommended by pulmonary. Coronary artery disease with prior history of stent placement History of CVA Peripheral vascular disease with previous history of femoropopliteal bypass surgery. Bilateral carotid endarterectomies History of DVT left lower extremity History of CVA/TIA Hypertension Hyperlipidemia Elevated liver enzymes and cholelithiasis without evidence of cholecystitis. History of nephrolithiasis Plan: Consult pain management Started on Zosyn and IV Solu-Medrol Plan for liver biopsy next week, vs diagnostic thoracocentasis vs other (we will defer to oncology team the decision on how to obtain the tissue diagnosis) Several consultants on the case including hematology/oncology, pulmonary service and GI service. Labs and medication were reviewed.. Continue same treatment. Continue with symptomatic treatment. Resume home medication. Monitor labs and vitals. DVT and GI prophylaxis. Further recommendations as per clinical course of the patient DVT prophylaxis: Subcutaneous heparin GI Prophylaxis: Ppi PT/OT: Pending Prognosis is guarded
[2022-12-28] MEDS: methylPREDNISolone SOD SUCCI 40 MG/ML 1 ML VIAL IV SCH (00:13)
[2022-12-28] MEDS: MORPHINE SULFATE 4 MG/ML SYRINGE IVP PRN ×5 (00:56→22:52)
[2022-12-28] MEDS: PIPERACILLIN-TAZOBACTAM 3.375 GM in SODIUM CHLORIDE 0.9% 100 ML IVPB SCH ×3 (00:58→18:23)
[2022-12-28] MEDS: IPRATROPIUM-ALBUTEROL 3 ML NEB INHALATION PRN (01:49)
--- NOTE | 2022-12-28 06:13 | P.PN ---
Subjective Progress Note Date: 12/28/22 Principal diagnosis: Weakness, shortness of breath. The patient is seen today 12/24/2022 in follow-up on the regular medical floor. He is currently sitting up at the bedside. He is having quite a bit of abdominal discomfort this morning. More so than his initial complaints. He did undergo EGD yesterday that revealed a small hiatal hernia and mild gastritis. Colonoscopy revealed a 5 mm cecal and a 1 cm ascending colon polyps status post biopsies. Pathology pending. No masses identified. He will still need a liver biopsy. Glucose 92. He is continued on DuoNeb inhalations, Symbicort, prednisone taper. Heparin for DVT prophylaxis. The patient is seen today 12/25/2022 in follow-up on the regular medical floor. He is sitting in bed. Awake and alert in no acute distress. Vital having some ongoing issues with abdominal discomfort and bilateral rib pain. He is still requiring 4 L/m per nasal cannula with O2 saturations at 88% this morning. A follow-up chest x-ray revealed some developing atelectasis of the left lung base. He is currently on DuoNeb inhalations, Symbicort, prednisone taper. Heparin for DVT prophylaxis. He is afebrile. Hemodynamically stable. Awaiting liver biopsy. Remains off Plavix, aspirin and Xarelto. Reevaluated today on 12/26/2022, patient is feeling a bit better but his shortness of breath is a bit worse. Last chest x-ray showed atelectasis of the left base, patient is having today some cough, cough is productive with yellow phlegm, he was already placed on Zosyn empirically for his atelectasis, questionable pneumonia, today I am recommending a CT angiogram of the chest as the patient seems to be a high risk for pulmonary embolism considering his presumptive underlying GI malignancy . Follow-up CT angiogram showed no evidence of pulmonary embolism it did show medial right lower lobe consolidation and atelectasis with volume loss, and left basilar atelectasis. Nonetheless patient is on antibiotics empirically although clinically I still doubt pneumonia being the findings are mostly findings of atelectasis. The patient is seen today 12/27/2022 in follow-up on the regular medical floor. He is sitting up in bed. Awake and alert in no acute distress. CT angiogram ruled out pulmonary embolism. There is a medial right lower lobe consolidation with volume loss consistent with atelectasis. 1.6 cm pulmonary nodule in the left lower lobe. Mild COPD. He is maintaining O2 saturations in the 90s on 4 L/m per nasal cannula. Normal saline at KVO. Blood culture reveals no growth. Sputum culture revealed no growth. ProBNP 1610. Glucose 118. He is continued on DuoNeb inhalations, Symbicort, IV Solu-Medrol. Heparin for DVT prophylaxis. Antibiotics in the form of Zosyn. Progress note dated 12/28/2022. The patient is seen today in room 531, on the general medical floor. He sitting up in bed. He continues on oxygen at 5 L. He is getting saline at 20 mL an hour. According to the last note from oncology, the patient's liver lesions, may be too small for interventional radiology to do a biopsy. The patient will likely need an outpatient PET scan, to determine if there is at target, that can be sampled. Currently, his only complaint is abdominal distention and some mild abdominal pain. No new labs as yet. Objective - Vital Signs Vital signs: Vital Signs Temp 97.8 F 12/28/22 01:36 Pulse 81 12/28/22 02:01 Resp 18 12/28/22 01:36 BP 127/73 12/28/22 01:36 Pulse Ox 92 L 12/28/22 01:36 FiO2 Intake & Output 12/27/22 12/27/22 12/28/22 06:59 18:59 06:59 Intake Total 590 Output Total 300 1262 Balance 290 -1262 Intake: Oral 590 Output: Urine 300 1000 Post Void Residual 262 Other: Voiding Method Urinal Urinal Urinal # Voids 1 - Exam No acute distress, oriented 3. Currently on 4 L of oxygen. No respiratory distress. HEENT examination is grossly unremarkable. Neck supple. Full range of motion. No adenopathy thyromegaly or neck vein distention. Cardiovascular examination reveals regular rhythm rate. S1-S2 normal. No S3 or S4. No discernible murmur noted. Heart rate 81 bpm. Lungs reveal scattered rhonchi. No wheezes or crackles. Breath sounds equal bilaterally. The patient does not take deep breaths. 4 L saturation is 92%. Abdomen distended and mildly tender. Bowel sounds are noted. Extremities are intact. No cyanosis clubbing or edema. Skin reveals multiple areas of ecchymoses. Neurologic examination is brief but nonfocal. - Labs CBC & Chem 7: 12/26/22 05:55 12/26/22 05:55 Labs: Abnormal Lab Results - Last 24 Hours (Table) 12/27/22 12/27/22 12/27/22 Range/Units 07:24 12:09 17:23 POC Glucose (mg/dL) 118 H 144 H 123 H (70-110) mg/dL 12/27/22 Range/Units 20:20 POC Glucose (mg/dL) 253 H (70-110) mg/dL Assessment and Plan Assessment: Diffuse skeletal pain involving the chest wall and back. Bone scan did reveal marked heterogenous uptake involving the bilateral rib cage, vertebral column, pelvis and calvarium appears to correspond to abnormal marrow appearance of the visualized osseous structures on CAT scan. Suspect malignancy. Carcinoembryonic antigen 4441. CA 199 antigen 69.5. Colonoscopy from 12/23/2022 revealed a 5 mm cecal and a 1 cm ascending colon polyps status post biopsies. Pathology pending. No masses identified. He will need a liver biopsy. Xarelto, Aspirin and Plavix remain on hold. Computed tomography scan of the abdomen revealed innumerable small nodules throughout the liver. Heterogenous appearance to the osseous structures. Given the liver findings, correlate for potential infiltrative disease or diffuse osseous metastatic disease. CT angiogram from 12/26/2022 ruled out pulmonary embolism. Hypercalcemia. Received Zometa. Calcium level is down to 8.5. Acute hypoxemic respiratory failure secondary to an acute exacerbation of chronic obstructive pulmonary disease. Left lower lobe pulmonary nodule measuring 1.5 cm, will need an outpatient PET CT and further investigation. Probable metastatic disease to the lung. Coronary artery disease. Vascular disease with a previous fem-pop bypass surgery. Bilateral carotid endarterectomies. Coronary artery disease and coronary stenting. Previous history of CVA. Previous history of DVT of the left lower extremity. Previous history of Covid 19 infection in February 2021. Hypertension. Hyperlipidemia. Abnormal LFTs with cholelithiasis without evidence of cholecystitis. History of nephrolithiasis. Plan: Plan dated 12/28/2022. The patient was seen and evaluated, and examine. He continues on 4 L of oxygen. According to the note from oncology yesterday, apparently interventional radiology is saying that the lesions in the liver may be too small to biopsy. An outpatient PET scan is being recommended. The patient continues on Zosyn, bronchodilators, and Solu-Medrol. The patient received 1 dose of Lasix yesterday. No additional recommendations are made. Prognosis is certainly guarded. We will continue to follow make recommendations along the way. Time with Patient: Less than 30
[2022-12-28 07:30] LABS: Glucose,Whole Blood 156 mg/dL (70-110)
[2022-12-28] MEDS: IPRATROPIUM-ALBUTEROL 3 ML NEB INHALATION SCH ×4 (07:54→20:26)
[2022-12-28] MEDS: SYMBICORT 160-4.5 MCG INHALER INHALATION SCH ×2 (08:14→20:26)
[2022-12-28] MEDS: INSULIN ASPART (NovoLOG) 100 UNIT/ML VIAL SQ SCH ×4 (08:45→20:05)
[2022-12-28] MEDS: PANTOPRAZOLE 40 MG/10 ML VIAL IV SCH ×2 (08:46→20:06)
[2022-12-28] MEDS: SENNOSIDES-DOCUSATE SODIUM 1 EACH TAB PO SCH ×2 (08:47→20:05)
[2022-12-28] MEDS: METOPROLOL TARTRATE 25 MG TAB PO SCH ×2 (08:47→20:05)
[2022-12-28] MEDS: LOSARTAN 50 MG TAB PO SCH (08:47)
[2022-12-28] MEDS: oxyCODONE ER 20 MG TAB.ER.12H PO SCH (08:48)
[2022-12-28] MEDS: EZETIMIBE 10 MG TAB PO SCH (08:48)
[2022-12-28] MEDS: THIAMINE 100 MG TAB PO SCH (08:48)
[2022-12-28] MEDS: DULoxetine HCL 30 MG CAPSULE.DR PO SCH ×2 (08:48→20:05)
[2022-12-28] MEDS: GABAPENTIN 300 MG CAP PO SCH ×2 (08:48→20:05)
[2022-12-28] MEDS: BACLOFEN 10 MG TAB PO SCH ×2 (08:48→20:05)
[2022-12-28] MEDS ORDERED: predniSONE 20 MG TAB PO SCH (09:00)
--- NOTE | 2022-12-28 10:54 | P.PAINCN ---
History of Present Illness - Reason for Consult Consult date: 12/28/22 - History of Present Illness This is a 67 years old male, with a complex medical history, admitted to [facility], and diagnostic study showed that patient had multiple liver lesions and cholelithiasis, and patient had gastritis, patient had chronic pain and he is being treated for his pain with OxyContin 40 mg twice a day, and Neurontin 600 mg twice a day, Cymbalta 30 mg twice a day and baclofen 20 mg twice a day patient reported that his pain is severe and is not controlled with the current medication, and his getting morphine 4 mg every 4 hours when necessary for breakthrough pain, patient reported that he had severe bilateral abdominal pain located in the epigastric area and also her radiated to the lateral aspect of the upper abdomen, also patient complaining of severe upper back pain with radiation towards the cervical area, pain is constant in the abdominal area and also he had about back pain which increases with changing position, Past Medical History Past Medical History: Coronary Artery Disease (CAD), COPD, CVA/TIA, Deep Vein Thrombosis (DVT), Hyperlipidemia, Hypertension, Myocardial Infarction (SD), Osteoarthritis (OA), Vascular Disorder Additional Past Medical History / Comment(s): PAD, dvt left leg, COVID 02/2021, TIA-no residual effects, gallstones, kidney stones Last Myocardial Infarction Date:: 04/20/20 History of Any Multi-Drug Resistant Organisms: None Reported Past Surgical History: Heart Catheterization With Stent, Hernia Repair, Joint Replacement, Orthopedic Surgery Additional Past Surgical History / Comment(s): abd. aortogram 09/04/20, L Fem- pop bypass with stent,x2 christy carotid endarterectomy, christy knee arthroscopy, rt hip replacement, one cardiac stent, surgery in October 2021 L lower extrem runoff with ballon angioplasty. Past Anesthesia/Blood Transfusion Reactions: No Reported Reaction Date of Last Stent Placement:: 08/2017 Past Psychological History: No Psychological Hx Reported Smoking Status: Former smoker Past Alcohol Use History: Daily Additional Past Alcohol Use History / Comment(s): quit smoking 2008, smoked 30- 40 yrs, 1 PPD Past Drug Use History: None Reported - Past Family History Father Family Medical History: Cancer Additional Family Medical History / Comment(s): lung Brother(s) Family Medical History: Cancer Son(s) Family Medical History: Cancer Medications and Allergies Home Medications and Allergies Comment(s): Assessment and plan=1-acute on chronic pain, patient currently having abdominal pain mainly in the left upper on the right upper quadrant, pain most likely secondary to intra-abdominal malignancy,(hepatic lesions 0, also patient complaining of severe rib cage pain, she is musculoskeletal in nature, also patient having upper back pain secondary to myofascial versus degenerative disc disease thoracic spine,, patient currently on OxyContin 40 mg twice a day ( 20 X2 ), and he is getting morphine 4 mg every 4 hours when necessary, and he reported that the current medication is not helping enough to control his pain, because of the widespread of the location of the pain interventional pain management it will not be helpful to control his pain the best option is to do medication management, patient could benefit from fentanyl patch 50 g every 72 hours, and we can discontinue OxyContin 40 mg , I will replace it with OxyIR 10 mg every 4 hours when necessary for breakthrough pain, we'll evaluate the patient's response to the new treatment plan , and will adjust accordingly Home Medications Medication Instructions Recorded Confirmed Type Gabapentin [Neurontin] 600 mg PO BID 04/21/15 12/17/22 History HYDROcodone/APAP 10-325MG [[place] 1 tab PO QID PRN 04/21/15 12/17/22 History 10-325] EPINEPHrine (Auto Inject) [Epipen] 0.3 mg IM ONCE PRN 05/25/19 12/17/22 History Rivaroxaban [Xarelto] 2.5 mg PO BID 04/21/20 12/17/22 History Biotin 5 mg PO HS 09/01/20 12/17/22 History Ezetimibe [Zetia] 10 mg PO DAILY 09/01/20 12/17/22 History Metoprolol Tartrate [Lopressor] 25 mg PO BID 09/01/20 12/17/22 History Albuterol Sulfate [Ventolin HFA] 2 puff INHALATION RT-BID PRN 02/03/21 12/17/22 History Budesonide/Formoterol Fumarate 2 puff INHALATION RT-BID 02/03/21 12/17/22 History [Symbicort 160-4.5 Mcg Inhaler] Thiamine [Vitamin B-1] 100 mg PO DAILY #30 tab 02/05/21 12/17/22 Rx Baclofen [Lioresal] 20 mg PO BID 10/20/21 12/17/22 History Clopidogrel [Plavix] 75 mg PO HS 10/20/21 12/17/22 History Rosuvastatin Calcium [Crestor] 40 mg PO HS 10/20/21 12/17/22 History Aspirin [Adult Low Dose Aspirin EC] 81 mg PO DAILY 10/14/22 12/17/22 History DULoxetine HCL [Cymbalta] 30 mg PO BID 12/17/22 12/17/22 History Losartan [Cozaar] 50 mg PO DAILY 12/17/22 12/17/22 History Nitroglycerin Sl Tabs [Nitrostat] 0.4 mg SL Q5M PRN 12/17/22 12/17/22 History Sennosides-Docusate Sodium 2 tab PO BID 12/17/22 12/17/22 History [Senokot-S] amLODIPine [Norvasc] 10 mg PO HS 12/17/22 12/17/22 History predniSONE See Taper PO DAILY 12/17/22 12/17/22 History Allergies Allergy/AdvReac Type Severity Reaction Status Date / Time venom-honey bee Allergy Anaphylaxis Verified 12/17/22 22:28 [bee venom (honey bee)] Physical Exam Vitals: Vital Signs Temp Pulse Pulse Resp BP BP Pulse Ox 12/28/22 08:05 84 12/28/22 08:00 20 12/28/22 07:57 88 93 L 12/28/22 07:25 98.0 F 87 18 121/65 90 L 12/28/22 02:01 81 12/28/22 01:49 76 12/28/22 01:36 97.8 F 88 18 127/73 92 L 12/27/22 23:25 20 100/63 91 L 12/27/22 21:27 84 12/27/22 21:16 78 12/27/22 20:00 85 12/27/22 19:51 97.9 F 85 20 99/61 91 L 12/27/22 15:49 85 12/27/22 15:35 80 12/27/22 12:27 88 12/27/22 12:21 88 12/27/22 12:05 97.6 F 78 18 103/68 92 L Intake and Output 12/27/22 12/28/22 12/28/22 22:59 06:59 14:59 Intake Total 100 Output Total 650 Balance -550 Intake: Intake, IV Titration 100 Amount Piperacillin-Tazobactam 3 100 .375 gm In Sodium Chloride 0.9% 100 ml @ 25 mls/hr IVPB Q8H [facility], 1928–1983 Rx#: [id number] Output: Urine 650 Other: Voiding Method Urinal Urinal # Voids 1 Physical Examinations : -Constitutiona : Cooperative , not in acute distress . -HEENT : nech : supple , no Lymphadenopathy , normal thyroid size . : eyes : no ptosis , no icterus, no photophobia . - neurologic : Cranial nerve II to XII intact , no focal neurological deffecit . -psychatric : alert , oriented X 3 , appropriate affect , intact judgment and insight . -Lymphatic : no Lymphadenopathy abdomen : soft , Tenderness over the left upper quadrant, tenderness in the epigastric area . - musculoskeltal : Thoracic Spine : Tenderness over the rib cage , from T6 to T12 Multiple trigger point identified in the thoracic paraspinal muscles Lumber spine moter stegnth lower extremities ,thigh and legs 4/5 Right side , 4/5 Left side Results CBC & Chem 7: 12/26/22 05:55 12/26/22 05:55 Labs: Abnormal Lab Results - Last 24 Hours (Table) 12/27/22 12/27/22 12/27/22 Range/Units 12:09 17:23 20:20 POC Glucose (mg/dL) 144 H 123 H 253 H (70-110) mg/dL 12/28/22 Range/Units 07:29 POC Glucose (mg/dL) 156 H (70-110) mg/dL Comments: CT of the abdomen and pelvis showed multiple liver lesions possible metastases. PQRS Measure Charge Sheet - Pain Location Abdomen Non-Pharmacological Interventions: Darkened Room, Distraction, Position/Reposition Pharmacological Interventions: PRN Medication Back Non-Pharmacological Interventions: Position/Reposition Pharmacological Interventions: Discuss Pain Med Options Pain Comment: See MAR pain assessments. PQRS Narrative: Smoking Status Former smoker Blood Pressure [Right Arm] 121/65 Blood Pressure [Left Arm] 100/63 Blood Pressure 134/76 Pain Intensity [Back] 7 Pain Intensity [Abdomen] 8 Pain Intensity 8 Pain Scale Used [Abdomen] Numeric (1 - 10) Pain Scale Used Numeric (1 - 10) Scale Used Numeric (1 - 10) Home Medications: Ambulatory Orders Gabapentin [Neurontin] 600 mg PO BID 04/21/15 HYDROcodone/APAP 10-325MG [[place] 10-325] 1 tab PO QID PRN 04/21/15 EPINEPHrine (Auto Inject) [Epipen] 0.3 mg IM ONCE PRN 05/25/19 Rivaroxaban [Xarelto] 2.5 mg PO BID 04/21/20 Biotin 5 mg PO HS 09/01/20 Ezetimibe [Zetia] 10 mg PO DAILY 09/01/20 Metoprolol Tartrate [Lopressor] 25 mg PO BID 09/01/20 Albuterol Sulfate [Ventolin HFA] 2 puff INHALATION RT-BID PRN 02/03/21 Budesonide/Formoterol Fumarate [Symbicort 160-4.5 Mcg Inhaler] 2 puff INHALATION RT-BID 02/03/21 Thiamine [Vitamin B-1] 100 mg PO DAILY #30 tab 02/05/21 Baclofen [Lioresal] 20 mg PO BID 10/20/21 Clopidogrel [Plavix] 75 mg PO HS 10/20/21 Rosuvastatin Calcium [Crestor] 40 mg PO HS 10/20/21 Aspirin [Adult Low Dose Aspirin EC] 81 mg PO DAILY 10/14/22 DULoxetine HCL [Cymbalta] 30 mg PO BID 12/17/22 Losartan [Cozaar] 50 mg PO DAILY 12/17/22 Nitroglycerin Sl Tabs [Nitrostat] 0.4 mg SL Q5M PRN 12/17/22 Sennosides-Docusate Sodium [Senokot-S] 2 tab PO BID 12/17/22 amLODIPine [Norvasc] 10 mg PO HS 12/17/22 predniSONE See Taper PO DAILY 12/17/22
[2022-12-28 11:17] LABS: Blood Urea Nitrogen 21.2 mg/dL (9.0-27.0); Calcium 7.7 mg/dL (8.7-10.3); Carbon Dioxide 21.9 mmol/L (21.6-31.8); Chloride 106 mmol/L (96-109); Glucose 142 mg/dL (70-110); Magnesium 1.9 mg/dL (1.5-2.4); Phosphorus 1.6 mg/dL (2.4-5.1); Potassium 4.4 mmol/L (3.5-5.5); Sodium 141 mmol/L (135-145)
[2022-12-28 11:56] LABS: Basophils # (M) 0 X 10*3/uL (0.00-0.10); HCT 39.9 % (39.6-50.0); MCHC 32.6 d/dL (32.0-37.0); MCV 98.3 FL (80.0-97.0); Mean Platelet Volume 10.2 FL (9.5-12.2); NRBC Per 100 WBC 0 X 10*3/uL (0.00-0.01); Neutrophils % (M) 83 %; Platelet Count 105 X 10*3/uL (140-440); RBC 4.06 X 10*6/uL (4.40-5.60); RDW 14.5 % (11.5-14.5); WBC 8.03 X 10*3/uL (4.50-10.00)
[2022-12-28 12:06] LABS: Eosinophils # (M) 0.08 X 10*3/uL (0.04-0.35); Lymphocytes # (M) 0.16 X 10*3/uL (0.90-5.00); Metamyelocytes % 3 % (0-0); Monocytes # (M) 0.88 X 10*3/uL (0.20-1.00); Neutrophils # (M) 6.66 X 10*3/uL (1.80-7.70); Nucleated Red Blood Cells 1 /100 WBCS; RBC Morphology Normal (Normal)
[2022-12-28 12:29] LABS: Glucose,Whole Blood 112 mg/dL (70-110)
--- NOTE | 2022-12-28 13:05 | P.PN ---
Subjective 67-year-old male was admitted to the hospital with complaints of abdominal pain and found to have cholelithiasis and cholecystitis. Patient also has hypercalcemia. 12/20/2022 Patient is currently lying in the bed. Awake alert and oriented x3. Anxious. Complains of both right upper and and left upper quadrant abdominal pain below the rib cage. Also complaining of back pain. No complaints of nausea vomiting. Patient underwent bone scan today. Due to hypercalcemia. Oncology and nephrology is on board. Laboratory data showed WBC 10.8 hemoglobin 15.1 and platelets 132 BUN 31.4 and creatinine 1.2 and bicarb level is 20.4 anion gap 14.6. Calcium level 12.6. Tumor markers were ordered. 12/21/2022 Patient is currently lying in bed. Awake alert and oriented x3. On oxygen at 4 L via nasal cannula. Still complains of pain below the rib cage. Bone scan was done yesterday showed a markedly heterogenous uptake involving the bilateral rib cage, vertebral column pelvis and calvarium appears to correspond to abnormal marrow appearance of the visualized osseous structures of the CAT scan. Suspect occult malignancy. Otherwise patient is being continued on IV Solu-Medrol DuoNebs and antibiotics and home Zosyn. Also on anticoagulation with Xarelto. Laboratory data showed WBC 8.2 hemoglobin 14.1 and platelets 119 Sodium 138 potassium 4.6 chloride 105 bicarb is 28 BUN 24 and creatinine 1.07 AST 110 ALT 90 alk phos 160. 12/22/2022 Patient is currently lying in bed. Complains of pain. Currently on Lipan and morphine sustained-release was ordered. IR guided biopsy of the liver lesion could not be done due to patient being on anticoagulation. Oncology recommends endoscopic evaluation at this time. Otherwise CT of the abdomen pelvis done yesterday showed extensive 1 to 2 cm nodules diffusely throughout the left and right lobes of the liver suspicious for metastatic disease. CEA level is elevated. Laboratory data reviewed. 2022 Patient was admitted to the hospital due to bilateral rib cage pain and hypercalcemia and work-up in process for malignancy. Currently lying in the bed. Awake alert and oriented. No complaints of fever or chills. Currently on 4 L via nasal cannula. Continued on prednisone 30 mg daily. Also, DuoNebs and anticoagulation. Patient is scheduled for EGD and colonoscopy today. Otherwise cultures showed no growth. Patient is off antibiotics currently. Laboratory data showed WBC 8.1 hemoglobin 13.6 and platelets 124 BUN 19.3 and creatinine 0.7. Calcium level came down to 8.5. 12/24/2022 Patient is today had EGD and colonoscopy showing small hiatal hernia and cecal polyp which was removed. No other significant abnormality. Patient had repeat CT of the abdomen and pelvis today showing multiple nodules of the liver suspicious for liver cirrhosis versus metastatic disease area Heterogenous appearance of the osseous structures suspicious for metastatic disease. Moderate to severe stenosis of bilateral iliac arteries and right renal artery. As well as SMA. Cholelithiasis and diverticulitis. Prostate gland calcification 1.1 cm. 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 There was possible to discharge and the patient and do the procedure as an outpatient and follow-up with oncologist as an outpatient on , however patient still complaining of from severe bilateral rib cage pain and tenderness related most likely due to metastatic disease. Upon consult is obtained. Also patient most likely will have biopsy next week. Discussed with staff 12/25/2022 Patient today looks less lethargic and sitting up in chair, however he is more short of breath and Solu-Medrol is adequate. Repeat chest x-ray showed possible right lower pneumonia and Zosyn is added. proCalcitonin is pending. Also liver biopsy is pending 12/26/2022 pt is still lethargic but alert and awake , lying in bed with generalized weakness, he say his chest and rib cage pain is there but feels tolerable he remains on zosyn and solumedrol 40 mg pending [facility]: neg for PE 12/27/2022 pt clinically looks similar to the last few day, somewhat lewthargic and week , slighly tachypneic due to rib cage pain , tumour mass, and possible fluid overload. he is on 5 L of O2 via nasal cannula he supposed to get liver biopsy but per oncology input this may not be feasable as per notes from the IR team . other options are PET scan which is typically do ne as outpatient usually, or diagnostic thoracocentasis, we will defer to oncology team the decision on how to obtain the tissue diagnosis pt got one dose of lasix today which looks it helped him a little bit he is on zosyn and solumedrol 40 mg at bed side and all their questions were answered 12/28/2022 No significant change, still tired and weak . Other that he is hemodynamically stable. No new complaint. Patient remains on Zosyn. IV Solu-Medrol switched to prednisone 20 mg. That looks like patient cannot get liver biopsy per IR team. We will discuss with hematology/oncology team further recommendation and the next step in the diagnosis. Objective - Vital Signs Vital signs: Vital Signs Temp 98.0 F 12/28/22 07:25 Pulse 88 12/28/22 11:41 Resp 20 12/28/22 08:00 BP 121/65 12/28/22 07:25 Pulse Ox 93 L 12/28/22 07:57 FiO2 Intake & Output 12/27/22 12/28/22 12/28/22 18:59 06:59 18:59 Intake Total 100 Output Total 1262 650 Balance -1262 -550 Intake: Intake, IV Titration 100 Amount Piperacillin-Tazobactam 3 100 .375 gm In Sodium Chloride 0.9% 100 ml @ 25 mls/hr IVPB Q8H [facility] Rx#: [id number] Output: Urine 1000 650 Post Void Residual 262 Other: Voiding Method Urinal Urinal Urinal # Voids 1 - Exam -GENERAL: The patient is alert and oriented x3, less lethargic not in any acute distress. Well developed, well nourished. HEENT: Pupils are round and equally reacting to light. EOMI. No scleral icterus. No conjunctival pallor. Normocephalic, atraumatic. No pharyngeal erythema. No thyromegaly. CARDIOVASCULAR: S1 and S2 present. No murmurs, rubs, or gallops. -PULMONARY: Chest is clear to auscultation, no wheezing , no crackles. B ilateral rib care teaching tenderness ABDOMEN: Soft, nontender, nondistended, normoactive bowel sounds. No palpable organomegaly. MUSCULOSKELETAL: No joint swelling or deformity. EXTREMITIES: No cyanosis, clubbing, or pedal edema. NEUROLOGICAL: Gross neurological examination did not reveal any focal deficits. SKIN: No rashes. no petechiae. - Labs CBC & Chem 7: 12/28/22 06:40 12/28/22 06:40 Labs: Abnormal Lab Results - Last 24 Hours (Table) 12/27/22 12/27/22 12/28/22 Range/Units 17:23 20:20 06:40 RBC 4.06 L (4.40-5.60) X 10*6/uL MCV 98.3 H (80.0-97.0) FL Plt Count 105 L (140-440) X 10*3/uL Lymphocytes # (Manual) 0.16 L (0.90-5.00) X 10*3/uL Anion Gap (4.00-12.00) mmol/L BUN/Creatinine Ratio (12.00-20.00) Ratio Glucose (70-110) mg/dL POC Glucose (mg/dL) 123 H 253 H (70-110) mg/dL Calcium (8.7-10.3) mg/dL Phosphorus (2.4-5.1) mg/dL 12/28/22 12/28/22 12/28/22 Range/Units 06:40 07:29 12:28 RBC (4.40-5.60) X 10*6/uL MCV (80.0-97.0) FL Plt Count (140-440) X 10*3/uL Lymphocytes # (Manual) (0.90-5.00) X 10*3/uL Anion Gap 13.10 H (4.00-12.00) mmol/L BUN/Creatinine Ratio 21.20 H (12.00-20.00) Ratio Glucose 142 H (70-110) mg/dL POC Glucose (mg/dL) 156 H 112 H (70-110) mg/dL Calcium 7.7 L (8.7-10.3) mg/dL Phosphorus 1.6 L (2.4-5.1) mg/dL Assessment and Plan Assessment: Liver cirrhosis, cannot rule out malignancy given multiple nodules and will require liver biopsy Bilateral rib cage pain and tenderness related to possible metastatic osseous disease. Hypercalcemia and pain below the rib cage and also back pain. Malignancy work- up in process. Bone scan showed a markedly heterogenous uptake involving the bilateral rib cage, vertebral column pelvis and calvarium appears to correspond to abnormal marrow appearance of the visualized osseous structures of the CAT scan. Suspect occult malignancy. COPD with no exacerbation Left lower lobe pulmonary nodule measuring 1.5 cm. Outpatient PET scan recommended by pulmonary. Coronary artery disease with prior history of stent placement History of CVA Peripheral vascular disease with previous history of femoropopliteal bypass s urgery. Bilateral carotid endarterectomies History of DVT left lower extremity History of CVA/TIA Hypertension Hyperlipidemia Elevated liver enzymes and cholelithiasis without evidence of cholecystitis. History of nephrolithiasis Plan: Consult pain management is appreciated and patient currently is on fentanyl and oxycodone when necessary. Started on Zosyn and IV prednisone Several consultants on the case including hematology/oncology, pulmonary service Plan for patient cannot get liver biopsy. consultants on the case including hematology/oncology, pulmonary service and GI service. Labs and medication were reviewed.. Continue same treatment. Continue with symptomatic treatment. Resume home medication. Monitor labs and vitals. DVT and GI prophylaxis. Further recommendations as per clinical course of the patient DVT prophylaxis: Subcutaneous heparin GI Prophylaxis: Ppi PT/OT: Pending Prognosis is guarded
--- NOTE | 2022-12-28 14:44 | P.PN ---
Subjective Progress Note Date: 12/28/22 Principal diagnosis: Abdominal pain. Liver lesions. In follow-up today patient is sitting in the chair, he cont to be SOB at rest/while talking. 5L nasal cannula, he was not on oxygen at home. His abdomen is distended, the epigastric area is "hard" to palpation, he reports pa in when the abd is touched in multiple area. Swelling in the legs is mild, generalized. Objective - Vital Signs Vital signs: Vital Signs Temp 98.2 F 12/28/22 12:23 Pulse 83 12/28/22 12:23 Resp 18 12/28/22 12:23 BP 104/60 12/28/22 12:23 Pulse Ox 90 L 12/28/22 12:23 FiO2 Intake & Output 12/27/22 12/28/22 12/28/22 18:59 06:59 18:59 Intake Total 100 Output Total 1262 650 Balance -1262 -550 Intake: Intake, IV Titration 100 Amount Piperacillin-Tazobactam 3 100 .375 gm In Sodium Chloride 0.9% 100 ml @ 25 mls/hr IVPB Q8H [facility] Rx#: [id number] Output: Urine 1000 650 Post Void Residual 262 Other: Voiding Method Urinal Urinal Urinal # Voids 1 - Constitutional General appearance: Present: cooperative, mild distress, obese - EENT Eyes: Present: anicteric sclerae, EOMI ENT: Present: hearing grossly normal - Respiratory Respiratory: right: diminished, left: CTA - Cardiovascular Rhythm: regular Heart sounds: normal: S1, S2 - Peripheral edema leg Peripheral Edema: bilateral: 1+ - Gastrointestinal Gastrointestinal Comment(s): Significant distention. Hollow sounding to percussion of the upper quadrants, Dullness around the navel, distal General gastrointestinal: Present: distended, tenderness (With mild to moderate depth palpation of the entire abdomen, worse on the left) - Neurologic Neurologic: Present: CNII-XII intact - Musculoskeletal Musculoskeletal: Present: generalized weakness - Psychiatric Psychiatric: Present: A&O x's 3, appropriate affect, intact judgment & insight - Labs CBC & Chem 7: 12/28/22 06:40 12/28/22 06:40 Labs: Abnormal Lab Results - Last 24 Hours (Table) 12/27/22 12/27/22 12/28/22 Range/Units 17:23 20:20 06:40 RBC 4.06 L (4.40-5.60) X 10*6/uL MCV 98.3 H (80.0-97.0) FL Plt Count 105 L (140-440) X 10*3/uL Lymphocytes # (Manual) 0.16 L (0.90-5.00) X 10*3/uL Anion Gap (4.00-12.00) mmol/L BUN/Creatinine Ratio (12.00-20.00) Ratio Glucose (70-110) mg/dL POC Glucose (mg/dL) 123 H 253 H (70-110) mg/dL Calcium (8.7-10.3) mg/dL Phosphorus (2.4-5.1) mg/dL 12/28/22 12/28/22 12/28/22 Range/Units 06:40 07:29 12:28 RBC (4.40-5.60) X 10*6/uL MCV (80.0-97.0) FL Plt Count (140-440) X 10*3/uL Lymphocytes # (Manual) (0.90-5.00) X 10*3/uL Anion Gap 13.10 H (4.00-12.00) mmol/L BUN/Creatinine Ratio 21.20 H (12.00-20.00) Ratio Glucose 142 H (70-110) mg/dL POC Glucose (mg/dL) 156 H 112 H (70-110) mg/dL Calcium 7.7 L (8.7-10.3) mg/dL Phosphorus 1.6 L (2.4-5.1) mg/dL Assessment and Plan (1) Abdominal pain Current Visit: Yes Status: Acute Code(s): R10.9 - UNSPECIFIED ABDOMINAL PAIN SNOMED Code(s): 84287936 (2) Elevated tumor markers Current Visit: Yes Status: Acute Priority: Medium Code(s): R97.8 - OTHER ABNORMAL TUMOR MARKERS SNOMED Code(s): 751944005 (3) Hypercalcemia Current Visit: Yes Status: Resolved Priority: High Code(s): E83.52 - HYPERCALCEMIA SNOMED Code(s): 12282894 Plan: Hypercalcemia -Treated with calcitonin and zometa. Calcium was 7.7 today. -PTH significantly low, 5.4. PTHrP is still pending -Concern is that this has hypercalcemia of malignancy. Pending workup Liver lesion -Case discussed with Interventional Radiology nurse. Radiologist reviewed the CT scan. [place] that a liver biopsy will not be possible because of small lesions, felt that it would be a random biopsy that would likely not yield a diagnosis. In the patient's discharge plan today there is a note that states patient has an appointment on January 06 for liver biopsy. I have a call out to find out if this is the plan. -Additional imaging was recommended by Radiologist. Ultimately, a PET scan was recommended to assess the avidity of the liver lesions as well as any other possible lesions that could be a target for biopsy. Awaiting biopsy plan. Will plan for staging PET -CEA elevated at 4441 -Patient do understand that there are concerns for malignancy, just pending a target for biopsy -Aspirin has been held -EGD and colonoscopy completed, cecal polyp and ascending colon polyp. Pathology reporting tubular adenoma Abdominal pain -Pain mgmt consulted and managing Shortness of breath -When seen today breathing cont to be labored. Patient still on 5 L of oxygen. Patient's pain and shortness of breath need to be managed. Oncology needs to know if there is a plan for a biopsy or if we need to get a PET scan scheduled so we can then sched a biopsy. Calls are out, awaiting call backs Thigh high compression socks ordered per pt request attests: I have seen and examined patient, performed H&P, developed impression and plan of care. Discussed with dictator. Agree with dictation, documented as a scribe. Time with Patient: Greater than 30
[2022-12-28] MEDS: HEPARIN SODIUM,PORCINE/PF 5,000 UNIT/0.5 ML SYRINGE SQ SCH (16:25)
[2022-12-28 17:49] LABS: Glucose,Whole Blood 122 mg/dL (70-110)
--- NOTE | 2022-12-28 18:00 | XR ---
EXAMINATION TYPE: XR abdomen acute w cxr DATE OF EXAM: 12/28/2022 COMPARISON: NONE HISTORY: Pain TECHNIQUE: Single view of the chest and 2 views of the abdomen are submitted. FINDINGS: Single view of the chest demonstrate some increased basilar density right lower lobe which may reflec t developing infiltrate and/or atelectasis. There is no evidence for pneumoperitoneum. Mild distention of the colon with intraluminal colonic debris noted. Small bowel is of normal caliber . No sizeable air fluid levels.No mass effects are seen. No unusual calcifications. IMPRESSION: 1. Mild distention of the colon with intraluminal colonic debris noted.
[2022-12-28 20:05] LABS: Glucose,Whole Blood 133 mg/dL (70-110)
[2022-12-28] MEDS: amLODIPine 10 MG TAB PO SCH (20:05)
[2022-12-28] MEDS: ATORVASTATIN 80 MG TAB PO SCH (20:05)
--- NOTE | 2022-12-28 22:38 | XR ---
EXAM: XR Chest, 1 View CLINICAL HISTORY: XR Reason: Resp distress TECHNIQUE: Frontal view of the chest. COMPARISON: CT from November 17, 2022 FINDINGS: Lungs: Underinflated lungs with mild bibasilar atelectasis, less likely pneumonia. There is the 1.2 cm smooth round nodular density projecting over the mid left lung which appears similar to comparison. Pleural space: Unremarkable. No pneumothorax. Heart: Unremarkable. No cardiomegaly. Mediastinum: Unremarkable. Bones/joints: Mild osteophytosis in the mid to lower thoracic spine. Vasculature: The thoracic aorta is mildly calcified but appears nondilated. Upper abdomen: Unremarkable as visualized. No pneumoperitoneum under the diaphragm. IMPRESSION: 1. Underinflated lungs with mild bibasilar atelectasis, less likely pneumonia. 2. There is the 1.2 cm smooth round nodular density projecting over the mid left lung which appears similar to comparison.
[2022-12-28] MEDS ORDERED: FUROSEMIDE 10 MG/ML 4 ML VIAL IV STA (23:30)
[2022-12-28] MEDS: methylPREDNISolone SOD SUCCI 125 MG/2 ML VIAL IV SCH (23:49)
[2022-12-29] MEDS: HEPARIN SODIUM,PORCINE/PF 5,000 UNIT/0.5 ML SYRINGE SQ SCH ×4 (00:45→23:18)
[2022-12-29] MEDS: PIPERACILLIN-TAZOBACTAM 3.375 GM in SODIUM CHLORIDE 0.9% 100 ML IVPB SCH ×3 (01:37→17:22)
[2022-12-29] MEDS: INSULIN ASPART (NovoLOG) 100 UNIT/ML VIAL SQ SCH ×4 (06:09→21:19)
[2022-12-29 06:14] LABS: Glucose,Whole Blood 133 mg/dL (70-110)
[2022-12-29] MEDS: methylPREDNISolone SOD SUCCI 125 MG/2 ML VIAL IV SCH ×4 (06:26→23:18)
[2022-12-29] MEDS ORDERED: Phosphorus Replacement Protoco 1 EACH MISC MISCELLANE PRN (07:03)
[2022-12-29] MEDS ORDERED: polyethylene glycoL 3350 17 GM POWD.PACK PO PRN (07:51)
[2022-12-29] MEDS ORDERED: polyethylene glycoL 3350 17 GM POWD.PACK PO STA (07:51)
[2022-12-29] MEDS: IPRATROPIUM-ALBUTEROL 3 ML NEB INHALATION SCH ×4 (08:17→21:51)
[2022-12-29] MEDS: FORMOTEROL FUMARATE 20 MCG/2 ML NEBU INHALATION SCH ×2 (08:17→21:51)
[2022-12-29] MEDS: BUDESONIDE 1 MG/2 ML NEBU INHALATION SCH ×2 (08:17→22:02)
--- NOTE | 2022-12-29 08:18 | XR ---
EXAMINATION TYPE: XR chest 1V DATE OF EXAM: 12/29/2022 COMPARISON: 12/28/2022 HISTORY: 67-year-old male with shortness of breath TECHNIQUE: Single frontal view of the chest is obtained. FINDINGS: Low lung volumes. Cardiovascular markings. Heart borderline enlarged. Patchy bibasilar opa cities persist. Possible slight improvement on the right. IMPRESSION: Hypoventilatory changes. Patchy bibasilar opacities persist. There may be slight interva l improvement on the right. Known left lower lobe pulmonary nodule not well depicted on the current e xam.
[2022-12-29 08:33] LABS: Phosphorus 2.2 mg/dL (2.5-4.5)
--- NOTE | 2022-12-29 08:37 | US ---
EXAMINATION TYPE: US chest DATE OF EXAM: 12/29/2022 COMPARISON: Radiograph same day CLINICAL INDICATION: Male, 67 years old with history of Dyspnea, pleural effusions; SOB TECHNIQUE: Targeted ultrasound of the posterior lower bilateral hemithoraces EXAM MEASUREMENTS: Right Pleural Effusion pocket size: no evidence of significant fluid pocket at this time Left Pleural Effusion pocket size: no evidence of significant fluid pocket at this time Right side NOT marked for possible thoracentesis outside the dept. Left side NOT marked for possible thoracentesis outside the dept. Pulmonologists are able to review the images in the patient?s EMR. IMPRESSIONS: No sizable effusion identified on either side.
[2022-12-29] MEDS: PANTOPRAZOLE 40 MG/10 ML VIAL IV SCH ×2 (09:37→21:18)
[2022-12-29] MEDS: GABAPENTIN 300 MG CAP PO SCH ×2 (09:37→21:18)
[2022-12-29] MEDS: DOCUSATE 100 MG CAP PO SCH ×2 (09:38→21:18)
[2022-12-29] MEDS: THIAMINE 100 MG TAB PO SCH (09:38)
[2022-12-29] MEDS: SENNOSIDES-DOCUSATE SODIUM 1 EACH TAB PO SCH ×2 (09:38→21:18)
[2022-12-29] MEDS: DULoxetine HCL 30 MG CAPSULE.DR PO SCH ×2 (09:38→21:18)
[2022-12-29] MEDS: EZETIMIBE 10 MG TAB PO SCH (09:38)
[2022-12-29] MEDS: LOSARTAN 50 MG TAB PO SCH (09:41)
[2022-12-29] MEDS: BACLOFEN 10 MG TAB PO SCH ×2 (09:41→21:18)
[2022-12-29] MEDS: METOPROLOL TARTRATE 25 MG TAB PO SCH ×2 (09:41→21:18)
[2022-12-29] MEDS: MORPHINE SULFATE 4 MG/ML SYRINGE IVP PRN ×2 (09:44→21:19)
[2022-12-29 10:11] LABS: Albumin 3.5 g/dL (3.5-5.0); Albumin/Globulin Ratio 1.1; Bilirubin,Unconjugated 0.4 mg/dL (0.0-1.1); Globulin 3.1 g/dL; Total Bilirubin 0.8 mg/dL (0.2-1.3); Total Protein 6.6 g/dL (6.3-8.2)
--- NOTE | 2022-12-29 11:11 | P.PN ---
Subjective 67-year-old male was admitted to the hospital with complaints of abdominal pain and found to have cholelithiasis and cholecystitis. Patient also has hypercalcemia. 12/20/2022 Patient is currently lying in the bed. Awake alert and oriented x3. Anxious. Complains of both right upper and and left upper quadrant abdominal pain below the rib cage. Also complaining of back pain. No complaints of nausea vomiting. Patient underwent bone scan today. Due to hypercalcemia. Oncology and nephrology is on board. Laboratory data showed WBC 10.8 hemoglobin 15.1 and platelets 132 BUN 31.4 and creatinine 1.2 and bicarb level is 20.4 anion gap 14.6. Calcium level 12.6. Tumor markers were ordered. 12/21/2022 Patient is currently lying in bed. Awake alert and oriented x3. On oxygen at 4 L via nasal cannula. Still complains of pain below the rib cage. Bone scan was done yesterday showed a markedly heterogenous uptake involving the bilateral rib cage, vertebral column pelvis and calvarium appears to correspond to abnormal marrow appearance of the visualized osseous structures of the CAT scan. Suspect occult malignancy. Otherwise patient is being continued on IV Solu-Medrol DuoNebs and antibiotics and home Zosyn. Also on anticoagulation with Xarelto. Laboratory data showed WBC 8.2 hemoglobin 14.1 and platelets 119 Sodium 138 potassium 4.6 chloride 105 bicarb is 28 BUN 24 and creatinine 1.07 AST 110 ALT 90 alk phos 160. 12/22/2022 Patient is currently lying in bed. Complains of pain. Currently on [place] and morphine sustained-release was ordered. IR guided biopsy of the liver lesion could not be done due to patient being on anticoagulation. Oncology recommends endoscopic evaluation at this time. Otherwise CT of the abdomen pelvis done yesterday showed extensive 1 to 2 cm nodules diffusely throughout the left and right lobes of the liver suspicious for metastatic disease. CEA level is elevated. Laboratory data reviewed. 2022 Patient was admitted to the hospital due to bilateral rib cage pain and hypercalcemia and work-up in process for malignancy. Currently lying in the bed. Awake alert and oriented. No complaints of fever or chills. Currently on 4 L via nasal cannula. Continued on prednisone 30 mg daily. Also, DuoNebs and anticoagulation. Patient is scheduled for EGD and colonoscopy today. Otherwise cultures showed no growth. Patient is off antibiotics currently. Laboratory data showed WBC 8.1 hemoglobin 13.6 and platelets 124 BUN 19.3 and creatinine 0.7. Calcium level came down to 8.5. 12/24/2022 Patient is today had EGD and colonoscopy showing small hiatal hernia and cecal polyp which was removed. No other significant abnormality. Patient had repeat CT of the abdomen and pelvis today showing multiple nodules of the liver suspicious for liver cirrhosis versus metastatic disease area Heterogenous appearance of the osseous structures suspicious for metastatic disease. Moderate to severe stenosis of bilateral iliac arteries and right renal artery. As well as SMA. Cholelithiasis and diverticulitis. Prostate gland calcification 1.1 cm. 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 There was possible to discharge and the patient and do the procedure as an outpatient and follow-up with oncologist as an outpatient on , however patient still complaining of from severe bilateral rib cage pain and tenderness related most likely due to metastatic disease. Upon consult is obtained. Also patient most likely will have biopsy next week. Discussed with staff 12/25/2022 Patient today looks less lethargic and sitting up in chair, however he is more short of breath and Solu-Medrol is adequate. Repeat chest x-ray showed possible right lower pneumonia and Zosyn is added. proCalcitonin is pending. Also liver biopsy is pending 12/26/2022 pt is still lethargic but alert and awake , lying in bed with generalized weakness, he say his chest and rib cage pain is there but feels tolerable he remains on zosyn and solumedrol 40 mg pending [facility]: neg for PE 12/27/2022 pt clinically looks similar to the last few day, somewhat lewthargic and week , slighly tachypneic due to rib cage pain , tumour mass, and possible fluid overload. he is on 5 L of O2 via nasal cannula he supposed to get liver biopsy but per oncology input this may not be feasable as per notes from the IR team . other options are PET scan which is typically do ne as outpatient usually, or diagnostic thoracocentasis, we will defer to oncology team the decision on how to obtain the tissue diagnosis pt got one dose of lasix today which looks it helped him a little bit he is on zosyn and solumedrol 40 mg at bed side and all their questions were answered 12/28/2022 No significant change, still tired and weak . Other that he is hemodynamically stable. No new complaint. Patient remains on Zosyn. IV Solu-Medrol switched to prednisone 20 mg. That looks like patient cannot get liver biopsy per IR team. We will discuss with hematology/oncology team further recommendation and the next step in the diagnosis. 12/29/2022 Patient awake alert does not look in much distress, maybe mild oral no respiratory distress, somewhat tachypneic. Last that his oxygen requirement went up and currently he is on high flow nasal cannula with a flow rate of 55 L/m and FiO2 of 100%. Repeated chest x-ray showing no much change from previous still has patchy infiltrates on both sides, transected looks even slightly better on radiology notes. Steroids has been bumped up to 60 mL again this morning. Also she remains on Zosyn. Also patient has some abdominal distention but he tolerates that well, no abdominal pain and tenderness or vomiting. He is passing flatus but he complains from constipation over the last few days. Patient is not to take narcotic pain medication and he is on senna only therefore we added MiraLAX when necessary and Colace with a close monitoring. Oncology team is working on obtaining a biopsy diagnosis for the patient prior to discharge or plan for that. Patient may benefit from PET scan inpatient per oncology team. Discussed with staff Active Medications Generic Name Dose Route Start Last Admin Trade Name Freq PRN Reason Stop Dose Admin Albuterol/Ipratropium 3 ml 12/20/22 08:35 12/28/22 01:49 Ipratropium-Albuterol 3 Ml Neb INHALATION 3 ml RT-Q2H PRN Administration Dyspnea Albuterol/Ipratropium 3 ml 12/25/22 08:00 12/29/22 08:17 Ipratropium-Albuterol 3 Ml Neb INHALATION 3 ml RT-QID ANDER Administration Amlodipine Besylate 10 mg 12/18/22 21:00 12/28/22 20:05 Amlodipine 10 Mg Tab PO Not Given HS ANDER Atorvastatin Calcium 80 mg 12/18/22 21:00 12/28/22 20:05 Atorvastatin 80 Mg Tab PO 80 mg HS ANDER Administration Baclofen 20 mg 12/18/22 09:00 12/29/22 09:41 Baclofen 10 Mg Tab PO 20 mg BID ANDER Administration Budesonide 1 mg 12/29/22 08:00 12/29/22 08:17 Budesonide 1 Mg/2 Ml Nebu INHALATION 1 mg RT-BID ANDER Administration Dextrose/Water 25 ml 12/18/22 10:00 Dextrose 50% Syringe 50 Ml IVP PER PROTOCOL PRN Hypoglycemia Protocol Docusate Sodium 100 mg 12/29/22 09:00 12/29/22 09:38 Docusate 100 Mg Cap PO 100 mg BID ANDER Administration Duloxetine HCl 30 mg 12/18/22 09:00 12/29/22 09:38 Duloxetine Hcl 30 Mg Capsule.Dr PO 30 mg BID ANDER Administration Ezetimibe 10 mg 12/18/22 09:00 12/29/22 09:38 Ezetimibe 10 Mg Tab PO 10 mg DAILY ANDER Administration Fentanyl 1 patch 12/28/22 10:00 12/28/22 12:19 Fentanyl 50mcg/Hr Patch TRANSDERM 1 patch Q72H ANDER Administration Protocol Formoterol Fumarate 20 mcg 12/29/22 08:00 12/29/22 08:17 Formoterol Fumarate 20 Mcg/2 Ml Nebu INHALATION 20 mcg RT-BID ANDER Administration Gabapentin 600 mg 12/18/22 09:00 12/29/22 09:37 Gabapentin 300 Mg Cap PO 600 mg BID ANDER Administration Heparin Sodium (Porcine) 5,000 unit 12/25/22 08:00 12/29/22 09:37 Heparin Sodium,Porcine/Pf 5,000 Unit/0.5 Ml Syringe SQ 5,000 unit Q8HR ANDER Administration Piperacillin Sod/Tazobactam 100 mls @ 25 mls/hr 12/25/22 18:00 12/29/22 09:36 Sod 3.375 gm/ Sodium Chloride IVPB 25 mls/hr Q8H ANDER Administration Protocol Insulin Aspart 0 unit 12/18/22 12:30 12/29/22 06:09 Insulin Aspart (Novolog) 100 Unit/Ml Vial SQ Not Given ACHS ANDER Protocol Losartan Potassium 50 mg 12/18/22 09:00 12/29/22 09:41 Losartan 50 Mg Tab PO 50 mg DAILY ANDER Administration Methylprednisolone Sodium Succinate 60 mg 12/29/22 00:00 12/29/22 06:26 Methylprednisolone Sod Succi 125 Mg/2 Ml Vial IV 60 mg Q6HR ANDER Administration Metoprolol Tartrate 25 mg 12/18/22 09:00 12/29/22 09:41 Metoprolol Tartrate 25 Mg Tab PO 25 mg BID ANDER Administration Miscellaneous Information 1 each 12/29/22 07:03 Phosphorus Replacement Protoco 1 Each Misc MISCELLANE DAILY PRN Per Protocol Protocol Morphine Sulfate 4 mg 12/20/22 09:15 12/29/22 09:44 Morphine Sulfate 4 Mg/Ml Syringe IVP 4 mg Q4HR PRN Administration Pain Naloxone HCl 0.2 mg 12/18/22 02:29 Naloxone 0.4 Mg/Ml 1 Ml Vial IV Q2M PRN Opioid Reversal Nitroglycerin 0.4 mg 12/18/22 07:38 Nitroglycerin Sl Tabs 0.4 Mg Tab SUBLINGUAL Q5M PRN Chest Pain Ondansetron HCl 4 mg 12/18/22 02:29 Ondansetron 4 Mg/2 Ml Vial IVP Q8HR PRN Nausea And Vomiting Oxycodone HCl 5 mg 12/28/22 10:54 Oxycodone Hcl 5 Mg Tab PO Q4HR PRN Pain Pantoprazole Sodium 40 mg 12/18/22 21:00 12/29/22 09:37 Pantoprazole 40 Mg/10 Ml Vial IV 40 mg BID ANDER Administration Polyethylene Glycol 17 gm 12/29/22 07:51 Polyethylene Glycol 3350 17 Gm Powd.Pack PO DAILY PRN Constipation Senna/Docusate Sodium 2 each 12/18/22 09:00 12/29/22 09:38 Sennosides-Docusate Sodium 1 Each Tab PO 2 each BID ANDER Administration Thiamine HCl 100 mg 12/18/22 09:00 12/29/22 09:38 Thiamine 100 Mg Tab PO 100 mg DAILY ANDER Administration Objective - Vital Signs Vital signs: Vital Signs Temp 98.2 F 12/29/22 09:35 Pulse 97 12/29/22 09:35 Resp 22 12/29/22 09:35 BP 164/75 12/29/22 09:35 Pulse Ox 94 L 12/29/22 09:35 FiO2 100 12/29/22 09:35 Intake & Output 12/28/22 12/29/22 12/29/22 18:59 06:59 18:59 Intake Total 10 110 Output Total 97 2300 Balance -97 -2290 110 Weight 102.5 kg Intake: IV 10 Invasive Line 2 10 Oral 110 Output: Urine 2300 Straight 750 Post Void Residual 97 Other: Voiding Method Urinal Indwelling Catheter - Exam -GENERAL: The patient is alert and oriented x3, less lethargic not in any acute distress. Well developed, well nourished. HEENT: Pupils are round and equally reacting to light. EOMI. No scleral icterus. No conjunctival pallor. Normocephalic, atraumatic. No pharyngeal erythema. No thyromegaly. CARDIOVASCULAR: S1 and S2 present. No murmurs, rubs, or gallops. -PULMONARY: Chest is clear to auscultation, no wheezing , no crackles. Bilat eral rib care teaching tenderness ABDOMEN: Soft, nontender, nondistended, normoactive bowel sounds. No palpable organomegaly. MUSCULOSKELETAL: No joint swelling or deformity. EXTREMITIES: No cyanosis, clubbing, or pedal edema. NEUROLOGICAL: Gross neurological examination did not reveal any focal deficits. SKIN: No rashes. no petechiae. - Labs CBC & Chem 7: 12/28/22 06:40 12/28/22 06:40 Labs: Abnormal Lab Results - Last 24 Hours (Table) 12/28/22 12/28/22 12/28/22 Range/Units 06:40 06:40 12:28 RBC 4.06 L (4.40-5.60) X 10*6/uL MCV 98.3 H (80.0-97.0) FL Plt Count 105 L (140-440) X 10*3/uL Lymphocytes # (Manual) 0.16 L (0.90-5.00) X 10*3/uL Anion Gap 13.10 H (4.00-12.00) mmol/L BUN/Creatinine Ratio 21.20 H (12.00-20.00) Ratio Glucose 142 H (70-110) mg/dL POC Glucose (mg/dL) 112 H (70-110) mg/dL Calcium 7.7 L (8.7-10.3) mg/dL Phosphorus 1.6 L (2.4-5.1) mg/dL AST (17-59) U/L ALT (4-49) U/L Alkaline Phosphatase (38-126) U/L 0712/28/22 12/29/22 Range/Units 17:45 20:03 06:08 RBC (4.40-5.60) X 10*6/uL MCV (80.0-97.0) FL Plt Count (140-440) X 10*3/uL Lymphocytes # (Manual) (0.90-5.00) X 10*3/uL Anion Gap (4.00-12.00) mmol/L BUN/Creatinine Ratio (12.00-20.00) Ratio Glucose (70-110) mg/dL POC Glucose (mg/dL) 122 H 133 H 133 H (70-110) mg/dL Calcium (8.7-10.3) mg/dL Phosphorus (2.4-5.1) mg/dL AST (17-59) U/L ALT (4-49) U/L Alkaline Phosphatase (38-126) U/L 12/29/22 Range/Units 07:30 RBC (4.40-5.60) X 10*6/uL MCV (80.0-97.0) FL Plt Count (140-440) X 10*3/uL Lymphocytes # (Manual) (0.90-5.00) X 10*3/uL Anion Gap (4.00-12.00) mmol/L BUN/Creatinine Ratio (12.00-20.00) Ratio Glucose (70-110) mg/dL POC Glucose (mg/dL) (70-110) mg/dL Calcium (8.7-10.3) mg/dL Phosphorus 2.2 L (2.4-5.1) mg/dL AST 376 H (17-59) U/L ALT 135 H (4-49) U/L Alkaline Phosphatase 284 H (38-126) U/L Assessment and Plan Assessment: Liver cirrhosis, cannot rule out malignancy given multiple nodules and will require liver biopsy Bilateral rib cage pain and tenderness related to possible metastatic osseous disease. Hypercalcemia and pain below the rib cage and also back pain. Malignancy work- up in process. Bone scan showed a markedly heterogenous uptake involving the bilateral rib cage, vertebral column pelvis and calvarium appears to correspond to abnormal marrow appearance of the visualized osseous structures of the CAT scan. Suspect occult malignancy. COPD with no exacerbation Left lower lobe pulmonary nodule measuring 1.5 cm. Outpatient PET scan recommended by pulmonary. Coronary artery disease with prior history of stent placement History of CVA Peripheral vascular disease with previous history of femoropopliteal bypass surgery. Bilateral carotid endarterectomies History of DVT left lower extremity History of CVA/TIA Hypertension Hyperlipidemia Elevated liver enzymes and cholelithiasis without evidence of cholecystitis. History of nephrolithiasis Plan: Consult pain management is appreciated and patient currently is on fentanyl and oxycodone when necessary. Started on Zosyn and IV prednisone Several consultants on the case including hematology/oncology, pulmonary service Plan for patient cannot get liver biopsy. consultants on the case including hematology/oncology, pulmonary service and GI service. Labs and medication were reviewed.. Continue same treatment. Continue with symptomatic treatment. Resume home medication. Monitor labs and vitals. DVT and GI prophylaxis. Further recommendations as per clinical course of the patient DVT prophylaxis: Subcutaneous heparin GI Prophylaxis: Ppi PT/OT: Pending Prognosis is guarded
[2022-12-29 11:28] LABS: Glucose,Whole Blood 159 mg/dL (70-110)
[2022-12-29 12:09] LABS: Basophils # (A) 0.04 X 10*3/uL (0.00-0.10); Basophils % (A) 0.4 %; Eosinophils # (A) 0.06 X 10*3/uL (0.04-0.35); Eosinophils % (A) 0.6 %; HCT 40.2 % (39.6-50.0); HGB 13.1 d/dL (13.0-17.0); Lymphocytes # (A) 0.88 X 10*3/uL (0.90-5.00); Lymphocytes % (A) 8.9 %; MCHC 32.6 d/dL (32.0-37.0); MCV 98.3 FL (80.0-97.0); Mean Platelet Volume 10.5 FL (9.5-12.2); Monocytes # (A) 0.62 X 10*3/uL (0.20-1.00); Monocytes % (A) 6.2 %; NRBC Per 100 WBC 0.04 X 10*3/uL (0.00-0.01); Neutrophils # (A) 7.88 X 10*3/uL (1.80-7.70); Neutrophils % (A) 79.3 %; Platelet Count 177 X 10*3/uL (140-440); RBC 4.09 X 10*6/uL (4.40-5.60); RBC Morphology Normal (Normal); RDW 14.8 % (11.5-14.5); WBC 9.94 X 10*3/uL (4.50-10.00)
--- NOTE | 2022-12-29 13:30 | P.PN ---
Subjective Progress Note Date: 12/29/22 Principal diagnosis: Weakness, shortness of breath. The patient is seen today 12/24/2022 in follow-up on the regular medical floor. He is currently sitting up at the bedside. He is having quite a bit of abdominal discomfort this morning. More so than his initial complaints. He did undergo EGD yesterday that revealed a small hiatal hernia and mild gastritis. Colonoscopy revealed a 5 mm cecal and a 1 cm ascending colon polyps status post biopsies. Pathology pending. No masses identified. He will still need a liver biopsy. Glucose 92. He is continued on DuoNeb inhalations, Symbicort, prednisone taper. Heparin for DVT prophylaxis. The patient is seen today 12/25/2022 in follow-up on the regular medical floor. He is sitting in bed. Awake and alert in no acute distress. Vital having some ongoing issues with abdominal discomfort and bilateral rib pain. He is still requiring 4 L/m per nasal cannula with O2 saturations at 88% this morning. A follow-up chest x-ray revealed some developing atelectasis of the left lung base. He is currently on DuoNeb inhalations, Symbicort, prednisone taper. Heparin for DVT prophylaxis. He is afebrile. Hemodynamically stable. Awaiting liver biopsy. Remains off Plavix, aspirin and Xarelto. Reevaluated today on 12/26/2022, patient is feeling a bit better but his shortness of breath is a bit worse. Last chest x-ray showed atelectasis of the left base, patient is having today some cough, cough is productive with yellow phlegm, he was already placed on Zosyn empirically for his atelectasis, questionable pneumonia, today I am recommending a CT angiogram of the chest as the patient seems to be a high risk for pulmonary embolism considering his presumptive underlying GI malignancy . Follow-up CT angiogram showed no evidence of pulmonary embolism it did show medial right lower lobe consolidation and atelectasis with volume loss, and left basilar atelectasis. Nonetheless patient is on antibiotics empirically although clinically I still doubt pneumonia being the findings are mostly findings of atelectasis. The patient is seen today 12/27/2022 in follow-up on the regular medical floor. He is sitting up in bed. Awake and alert in no acute distress. CT angiogram ruled out pulmonary embolism. There is a medial right lower lobe consolidation with volume loss consistent with atelectasis. 1.6 cm pulmonary nodule in the left lower lobe. Mild COPD. He is maintaining O2 saturations in the 90s on 4 L/m per nasal cannula. Normal saline at KVO. Blood culture reveals no growth. Sputum culture revealed no growth. ProBNP 1610. Glucose 118. He is continued on DuoNeb inhalations, Symbicort, IV Solu-Medrol. Heparin for DVT prophylaxis. Antibiotics in the form of Zosyn. Progress note dated 12/28/2022. The patient is seen today in room 531, on the general medical floor. He sitting up in bed. He continues on oxygen at 5 L. He is getting saline at 20 mL an hour. According to the last note from oncology, the patient's liver lesions, may be too small for interventional radiology to do a biopsy. The patient will likely need an outpatient PET scan, to determine if there is at target, that can be sampled. Currently, his only complaint is abdominal distention and some mild abdominal pain. No new labs as yet. Progress note dated 12/29/2022. The patient is seen today in room 376. The patient was transferred down to the third floor yesterday, because of worsening respiratory status, and placed on AIRVO. His current settings include 60 L/m with an FiO2 of 88%. He's not receiving any IV fluids. He continues on Zosyn. We did an ultrasound of the posterior chest, to see if there is any fluid in either pleural space, to attempt a thoracentesis. Unfortunately, there is no fluid on either side. White count is 9.94, hemoglobin 13.1, hematocrit 40.2, and platelet count 177,000. AST is 376. ALT is 135, and alkaline phosphatase is 284. N-terminal proBNP is 870. Phosphorus is 2.2. Glucose is 159. Chest x-ray shows patchy infiltrates, and some improvement in the overall pattern. Ultrasound did not reveal any significant fluid on either side. Objective - Vital Signs Vital signs: Vital Signs Temp 98.2 F 12/29/22 09:35 Pulse 87 12/29/22 11:51 Resp 22 12/29/22 11:51 BP 164/75 12/29/22 09:35 Pulse Ox 94 L 12/29/22 09:35 FiO2 92 12/29/22 11:42 Intake & Output 12/28/22 12/29/22 12/29/22 18:59 06:59 18:59 Intake Total 10 220 Output Total 97 2300 Balance -97 -2290 220 Weight 102.5 kg Intake: IV 10 Invasive Line 2 10 Oral 220 Output: Urine 2300 Straight 750 Post Void Residual 97 Other: Voiding Method Urinal Indwelling Catheter Indwelling Catheter - Exam No acute distress, oriented 3. Currently on AIRVO. No respiratory distress. No conversational dyspnea, and no use of accessory muscles. HEENT examination is grossly unremarkable. Neck supple. Full range of motion. No adenopathy thyromegaly or neck vein distention. Cardiovascular examination reveals regular rhythm rate. S1-S2 normal. No S3 or S4. No discernible murmur noted. Heart rate 87 bpm. Lungs reveal scattered rhonchi. No wheezes or crackles. Breath sounds equal bilaterally. The patient does not take deep breaths. Saturations are 94-96%. Abdomen distended and mildly tender. Bowel sounds are noted. Extremities are intact. No cyanosis clubbing or edema. Skin reveals multiple areas of ecchymoses. Neurologic examination is brief but nonfocal. - Labs CBC & Chem 7: 12/29/22 07:30 12/28/22 06:40 Labs: Abnormal Lab Results - Last 24 Hours (Table) 12/28/22 12/28/22 12/29/22 Range/Units 17:45 20:03 06:08 RBC (4.40-5.60) X 10*6/uL MCV (80.0-97.0) FL RDW (11.5-14.5) % Neutrophils # (1.80-7.70) X 10*3/uL Lymphocytes # (0.90-5.00) X 10*3/uL NRBC/100 WBC Diff (0.00-0.01) X 10*3/uL POC Glucose (mg/dL) 122 H 133 H 133 H (70-110) mg/dL Phosphorus (2.5-4.5) mg/dL AST (17-59) U/L ALT (4-49) U/L Alkaline Phosphatase (38-126) U/L 12/29/22 12/29/22 12/29/22 Range/Units 07:30 07:30 11:26 RBC 4.09 L (4.40-5.60) X 10*6/uL MCV 98.3 H (80.0-97.0) FL RDW 14.8 H (11.5-14.5) % Neutrophils # 7.88 H (1.80-7.70) X 10*3/uL Lymphocytes # 0.88 L (0.90-5.00) X 10*3/uL NRBC/100 WBC Diff 0.04 H (0.00-0.01) X 10*3/uL POC Glucose (mg/dL) 159 H (70-110) mg/dL Phosphorus 2.2 L (2.5-4.5) mg/dL AST 376 H (17-59) U/L ALT 135 H (4-49) U/L Alkaline Phosphatase 284 H (38-126) U/L Assessment and Plan Assessment: Diffuse skeletal pain involving the chest wall and back. Bone scan did reveal marked heterogenous uptake involving the bilateral rib cage, vertebral column, pelvis and calvarium appears to correspond to abnormal marrow appearance of the visualized osseous structures on CAT scan. Suspect malignancy. Carcinoembryonic antigen 4441. CA 199 antigen 69.5. Colonoscopy from 12/23/2022 revealed a 5 mm cecal and a 1 cm ascending colon polyps status post biopsies. Pathology pending. No masses identified. He will need a liver biopsy. Xarelto, Aspirin and Plavix remain on hold. Computed tomography scan of the abdomen revealed innumerable small nodules throughout the liver. Heterogenous appearance to the osseous structures. Given the liver findings, correlate for potential infiltrative disease or diffuse osseous metastatic disease. CT angiogram from 12/26/2022 ruled out pulmonary embolism. Hypercalcemia. Received Zometa. Calcium level is down to 8.5. Acute hypoxemic respiratory failure secondary to an acute exacerbation of chronic obstructive pulmonary disease. Left lower lobe pulmonary nodule measuring 1.5 cm, will need an outpatient PET CT and further investigation. Probable metastatic disease to the lung. Coronary artery disease. Vascular disease with a previous fem-pop bypass surgery. Bilateral carotid endarterectomies. Coronary artery disease and coronary stenting. Previous history of CVA. Previous history of DVT of the left lower extremity. Previous history of Covid 19 infection in February 2021. Hypertension. Hyperlipidemia. Abnormal LFTs with cholelithiasis without evidence of cholecystitis. History of nephrolithiasis. Plan: Plan dated 12/28/2022. The patient was seen and evaluated, and examine. He continues on 4 L of oxygen. According to the note from oncology yesterday, apparently interventional radiology is saying that the lesions in the liver may be too small to biopsy. An outpatient PET scan is being recommended. The patient continues on Zosyn, bronchodilators, and Solu-Medrol. The patient received 1 dose of Lasix yesterday. No additional recommendations are made. Prognosis is certainly guarded. We will continue to follow make recommendations along the way. Plan dated 12/29/2022. The patient's on all appropriate medications. We spent a great deal of time in the room today, telling the patient are plans, as well as talking to the patient's . We told the patient, and his , that from the pulmonary standpoint, there is nothing to sample. There is not enough fluid in the pleural spaces to attempt thoracentesis. It would only lead to a complication such as pneumothorax. The patient should have an outpatient PET scan, which might provide a target for biopsy. Hopefully, his respiratory status is improved. Additional recommendations and suggestions are forthcoming. Everything was explained in detail to the patient, and to the patient's . Time with Patient: Less than 30
[2022-12-29] MEDS ORDERED: MORPHINE SULFATE 4 MG/ML SYRINGE IVP STA (13:59)
--- NOTE | 2022-12-29 14:15 | P.PN ---
Subjective Progress Note Date: 12/29/22 Principal diagnosis: Abdominal pain. Liver lesions. In follow-up today patient is sitting in the chair, He is now on Airvo to maintain an oxygen saturation above 90%. He is not having any shortness of breath today while talking. His abdomen continues to be distended, Abdominal discomfort to palpation persists, generalized, swelling in the legs is improved with compression stockings on. Patient reporting fair pain control. Acute abdomen series impression mild distention of the colon with intraluminal colonic debris noted, no evidence for a pneumoperitoneum, some increased basilar density in the right lower lobe possibly a developing infiltrate or some atelectasis. Ultrasound of the chest no significant fluid accumulation. Did discuss case with Pulmonary DNP, not enough fluid for diagnostic purposes. Chest x-ray impression hypoventilatory changes, patchy bibasilar opacities are persistent, slight improvement on the right, lower lobe pulmonary nodule not visualized well. Objective - Vital Signs Vital signs: Vital Signs Temp 98.3 F 12/29/22 13:10 Pulse 74 12/29/22 13:10 Resp 22 12/29/22 13:10 BP 111/64 12/29/22 13:10 Pulse Ox 95 12/29/22 13:10 FiO2 100 12/29/22 13:10 Intake & Output 12/28/22 12/29/22 12/29/22 18:59 06:59 18:59 Intake Total 10 220 Output Total 97 2300 Balance -97 -2290 220 Weight 102.5 kg Intake: IV 10 Invasive Line 2 10 Oral 220 Output: Urine 2300 Straight 750 Post Void Residual 97 Other: Voiding Method Urinal Indwelling Catheter Indwelling Catheter - Constitutional General appearance: Present: average body habitus, cooperative, no acute distress - EENT Eyes: Present: anicteric sclerae, EOMI ENT: Present: hearing grossly normal - Respiratory Respiratory: bilateral: CTA, diminished - Cardiovascular Rhythm: regular - Peripheral edema leg Peripheral Edema: bilateral: 1+ - Gastrointestinal Gastrointestinal Comment(s): From the naval distal dullness to percussion General gastrointestinal: Present: distended, soft, tenderness - Integumentary Integumentary: Present: normal - Neurologic Neurologic: Present: CNII-XII intact - Musculoskeletal Musculoskeletal: Present: generalized weakness, strength equal bilaterally - Psychiatric Psychiatric: Present: A&O x's 3, appropriate affect, intact judgment & insight - Labs CBC & Chem 7: 12/29/22 07:30 12/28/22 06:40 Labs: Abnormal Lab Results - Last 24 Hours (Table) 12/28/22 12/28/22 12/29/22 Range/Units 17:45 20:03 06:08 RBC (4.40-5.60) X 10*6/uL MCV (80.0-97.0) FL RDW (11.5-14.5) % Neutrophils # (1.80-7.70) X 10*3/uL Lymphocytes # (0.90-5.00) X 10*3/uL NRBC/100 WBC Diff (0.00-0.01) X 10*3/uL POC Glucose (mg/dL) 122 H 133 H 133 H (70-110) mg/dL Phosphorus (2.5-4.5) mg/dL AST (17-59) U/L ALT (4-49) U/L Alkaline Phosphatase (38-126) U/L 12/29/22 12/29/22 12/29/22 Range/Units 07:30 07:30 11:26 RBC 4.09 L (4.40-5.60) X 10*6/uL MCV 98.3 H (80.0-97.0) FL RDW 14.8 H (11.5-14.5) % Neutrophils # 7.88 H (1.80-7.70) X 10*3/uL Lymphocytes # 0.88 L (0.90-5.00) X 10*3/uL NRBC/100 WBC Diff 0.04 H (0.00-0.01) X 10*3/uL POC Glucose (mg/dL) 159 H (70-110) mg/dL Phosphorus 2.2 L (2.5-4.5) mg/dL AST 376 H (17-59) U/L ALT 135 H (4-49) U/L Alkaline Phosphatase 284 H (38-126) U/L - Imaging and Cardiology Chest x-ray: report reviewed Abdominal x-ray: report reviewed Ultrasound of the chest report reviewed Assessment and Plan (1) Liver lesion Current Visit: Yes Status: Acute Priority: High Code(s): K76.9 - LIVER DISEASE, UNSPECIFIED SNOMED Code(s): 240005216 (2) Abdominal pain Current Visit: Yes Status: Acute Priority: High Code(s): R10.9 - UNSPECI FIED ABDOMINAL PAIN SNOMED Code(s): 57197312 (3) Elevated tumor markers Current Visit: Yes Status: Acute Priority: Medium Code(s): R97.8 - OTHER ABNORMAL TUMOR MARKERS SNOMED Code(s): 034544508 (4) Hypercalcemia Current Visit: Yes Status: Resolved Priority: High Code(s): E83.52 - HYPERCALCEMIA SNOMED Code(s): 97853183 Plan: Liver lesion -Outpatient plans for biopsy on 01/06. Bx will happen only if the Radiologist coming on feels that the liver lesions can be biopsied. Have to await their review of the case and recommendations -MRI of the liver ordered for a closer look-any larger lesion that could be a better target. Patient's liver enzymes are increasing. -CEA elevated at 4441 -Patient do understand that there are concerns for malignancy, just pending a target for biopsy-feeling frustrated -Aspirin has been held -EGD and colonoscopy completed, cecal polyp and ascending colon polyp. Pathology reporting tubular adenoma Abdominal pain -Pain mgmt consulted and managing Shortness of breath -Improved on airvo -US chest, no significant pleural fluid to consider thoracentesis -CXR stable -Pulmonary following Hypercalcemia-resolved -Treated with calcitonin and zometa. -PTH significantly low, 5.4. PTHrP is still pending -Concern is that this has hypercalcemia of malignancy. Pending workup If nothing on the MRI of liver looks amenable to biopsy will plan a PET scan and then sched a biopsy. attests: I have seen and examined patient, performed H&P, developed impression and plan of care. Discussed with dictator. Agree with dictation, documented as a scribe.
[2022-12-29 16:34] LABS: Glucose,Whole Blood 172 mg/dL (70-110)
[2022-12-29 20:05] LABS: Glucose,Whole Blood 189 mg/dL (70-110)
[2022-12-29] MEDS: ATORVASTATIN 80 MG TAB PO SCH (21:18)
[2022-12-29] MEDS: amLODIPine 10 MG TAB PO SCH (21:18)
[2022-12-30] MEDS: PIPERACILLIN-TAZOBACTAM 3.375 GM in SODIUM CHLORIDE 0.9% 100 ML IVPB SCH ×3 (02:28→17:04)
[2022-12-30] MEDS: MORPHINE SULFATE 4 MG/ML SYRINGE IVP PRN ×5 (04:40→22:06)
[2022-12-30 06:04] LABS: Glucose,Whole Blood 168 mg/dL (70-110)
[2022-12-30] MEDS: methylPREDNISolone SOD SUCCI 125 MG/2 ML VIAL IV SCH ×4 (06:40→23:18)
[2022-12-30] MEDS: INSULIN ASPART (NovoLOG) 100 UNIT/ML VIAL SQ SCH ×4 (06:40→20:30)
[2022-12-30] MEDS: BUDESONIDE 1 MG/2 ML NEBU INHALATION SCH ×2 (07:44→21:15)
[2022-12-30] MEDS: IPRATROPIUM-ALBUTEROL 3 ML NEB INHALATION SCH ×4 (07:44→21:14)
[2022-12-30] MEDS: FORMOTEROL FUMARATE 20 MCG/2 ML NEBU INHALATION SCH ×2 (07:44→21:14)
[2022-12-30] MEDS: PANTOPRAZOLE 40 MG/10 ML VIAL IV SCH ×2 (08:50→20:30)
[2022-12-30] MEDS: HEPARIN SODIUM,PORCINE/PF 5,000 UNIT/0.5 ML SYRINGE SQ SCH ×3 (08:51→23:18)
[2022-12-30] MEDS: METOPROLOL TARTRATE 25 MG TAB PO SCH ×2 (08:51→20:30)
[2022-12-30] MEDS: SENNOSIDES-DOCUSATE SODIUM 1 EACH TAB PO SCH ×2 (08:51→20:30)
[2022-12-30] MEDS: DULoxetine HCL 30 MG CAPSULE.DR PO SCH ×2 (08:51→20:30)
[2022-12-30] MEDS: LOSARTAN 50 MG TAB PO SCH (08:51)
[2022-12-30] MEDS: THIAMINE 100 MG TAB PO SCH (08:51)
[2022-12-30] MEDS: BACLOFEN 10 MG TAB PO SCH ×2 (08:51→20:30)
[2022-12-30] MEDS: EZETIMIBE 10 MG TAB PO SCH (08:51)
[2022-12-30] MEDS: GABAPENTIN 300 MG CAP PO SCH ×2 (08:51→20:30)
[2022-12-30] MEDS: DOCUSATE 100 MG CAP PO SCH ×2 (08:51→20:31)
--- NOTE | 2022-12-30 11:35 | P.PN ---
Subjective Progress Note Date: 12/30/22 Principal diagnosis: Weakness, shortness of breath. The patient is seen today 12/24/2022 in follow-up on the regular medical floor. He is currently sitting up at the bedside. He is having quite a bit of abdominal discomfort this morning. More so than his initial complaints. He did undergo EGD yesterday that revealed a small hiatal hernia and mild gastritis. Colonoscopy revealed a 5 mm cecal and a 1 cm ascending colon polyps status post biopsies. Pathology pending. No masses identified. He will still need a liver biopsy. Glucose 92. He is continued on DuoNeb inhalations, Symbicort, prednisone taper. Heparin for DVT prophylaxis. The patient is seen today 12/25/2022 in follow-up on the regular medical floor. He is sitting in bed. Awake and alert in no acute distress. Vital having some ongoing issues with abdominal discomfort and bilateral rib pain. He is still requiring 4 L/m per nasal cannula with O2 saturations at 88% this morning. A follow-up chest x-ray revealed some developing atelectasis of the left lung base. He is currently on DuoNeb inhalations, Symbicort, prednisone taper. Heparin for DVT prophylaxis. He is afebrile. Hemodynamically stable. Awaiting liver biopsy. Remains off Plavix, aspirin and Xarelto. Reevaluated today on 12/26/2022, patient is feeling a bit better but his shortness of breath is a bit worse. Last chest x-ray showed atelectasis of the left base, patient is having today some cough, cough is productive with yellow phlegm, he was already placed on Zosyn empirically for his atelectasis, questionable pneumonia, today I am recommending a CT angiogram of the chest as the patient seems to be a high risk for pulmonary embolism considering his presumptive underlying GI malignancy . Follow-up CT angiogram showed no evidence of pulmonary embolism it did show medial right lower lobe consolidation and atelectasis with volume loss, and left basilar atelectasis. Nonetheless patient is on antibiotics empirically although clinically I still doubt pneumonia being the findings are mostly findings of atelectasis. The patient is seen today 12/27/2022 in follow-up on the regular medical floor. He is sitting up in bed. Awake and alert in no acute distress. CT angiogram ruled out pulmonary embolism. There is a medial right lower lobe consolidation with volume loss consistent with atelectasis. 1.6 cm pulmonary nodule in the left lower lobe. Mild COPD. He is maintaining O2 saturations in the 90s on 4 L/m per nasal cannula. Normal saline at KVO. Blood culture reveals no growth. Sputum culture revealed no growth. ProBNP 1610. Glucose 118. He is continued on DuoNeb inhalations, Symbicort, IV Solu-Medrol. Heparin for DVT prophylaxis. Antibiotics in the form of Zosyn. Progress note dated 12/28/2022. The patient is seen today in room 531, on the general medical floor. He sitting up in bed. He continues on oxygen at 5 L. He is getting saline at 20 mL an hour. According to the last note from oncology, the patient's liver lesions, may be too small for interventional radiology to do a biopsy. The patient will likely need an outpatient PET scan, to determine if there is at target, that can be sampled. Currently, his only complaint is abdominal distention and some mild abdominal pain. No new labs as yet. Progress note dated 12/29/2022. The patient is seen today in room 376. The patient was transferred down to the third floor yesterday, because of worsening respiratory status, and placed on AIRVO. His current settings include 60 L/m with an FiO2 of 88%. He's not receiving any IV fluids. He continues on Zosyn. We did an ultrasound of the posterior chest, to see if there is any fluid in either pleural space, to attempt a thoracentesis. Unfortunately, there is no fluid on either side. White count is 9.94, hemoglobin 13.1, hematocrit 40.2, and platelet count 177,000. AST is 376. ALT is 135, and alkaline phosphatase is 284. N-terminal proBNP is 870. Phosphorus is 2.2. Glucose is 159. Chest x-ray shows patchy infiltrates, and some improvement in the overall pattern. Ultrasound did not reveal any significant fluid on either side. Progress note dated 12/30/2022. The patient is seen today in room 376. His is in the room as well. The patient continues on AIRVO, with settings of 54 L/m and an FiO2 of 92%. The patient is not receiving any IV fluids. The patient is scheduled to have an MRI of his liver, so that hopefully, a target lesion can be identified, for possible biopsy, by interventional radiology. No new labs today other than a glucose of 168. Objective - Vital Signs Vital signs: Vital Signs Temp 97.2 F L 12/30/22 08:00 Pulse 88 12/30/22 08:06 Resp 24 12/30/22 08:00 BP 116/64 12/30/22 08:00 Pulse Ox 96 12/30/22 08:00 FiO2 90 12/30/22 08:00 Intake & Output 12/29/22 12/30/22 12/30/22 18:59 06:59 18:59 Intake Total 1150 240 Output Total 690 450 425 Balance 460 -450 -185 Weight 104 kg 104 kg Intake: Intake, IV Titration 100 Amount Piperacillin-Tazobactam 3 100 .375 gm In Sodium Chloride 0.9% 100 ml @ 25 mls/hr IVPB Q8H [facility] Rx#: [id number] Oral 1050 240 Output: Urine 690 450 425 Other: Voiding Method Indwelling Catheter Indwelling Catheter Indwelling Catheter # Bowel Movements 1 - Exam No acute distress, oriented 3. Currently on AIRVO. No respiratory distress. No conversational dyspnea, and no use of accessory muscles. HEENT examination is grossly unremarkable. Neck supple. Full range of motion. No adenopathy thyromegaly or neck vein distention. Cardiovascular examination reveals regular rhythm rate. S1-S2 normal. No S3 or S4. No discernible murmur noted. Heart rate 88 bpm. Lungs reveal scattered rhonchi. No wheezes or crackles. Breath sounds equal b ilaterally. The patient does not take deep breaths. Saturations are 97 %. Abdomen distended and mildly tender. Bowel sounds are noted. Extremities are intact. No cyanosis clubbing or edema. Skin reveals multiple areas of ecchymoses. Neurologic examination is brief but nonfocal. - Labs CBC & Chem 7: 12/29/22 07:30 12/28/22 06:40 Labs: Abnormal Lab Results - Last 24 Hours (Table) 12/29/22 12/29/22 12/29/22 Range/Units 07:30 16:29 20:02 RBC 4.09 L (4.40-5.60) X 10*6/uL MCV 98.3 H (80.0-97.0) FL RDW 14.8 H (11.5-14.5) % Neutrophils # 7.88 H (1.80-7.70) X 10*3/uL Lymphocytes # 0.88 L (0.90-5.00) X 10*3/uL NRBC/100 WBC Diff 0.04 H (0.00-0.01) X 10*3/uL POC Glucose (mg/dL) 172 H 189 H (70-110) mg/dL 12/30/22 Range/Units 06:02 RBC (4.40-5.60) X 10*6/uL MCV (80.0-97.0) FL RDW (11.5-14.5) % Neutrophils # (1.80-7.70) X 10*3/uL Lymphocytes # (0.90-5.00) X 10*3/uL NRBC/100 WBC Diff (0.00-0.01) X 10*3/uL POC Glucose (mg/dL) 168 H (70-110) mg/dL Assessment and Plan Assessment: Diffuse skeletal pain involving the chest wall and back. Bone scan did reveal marked heterogenous uptake involving the bilateral rib cage, vertebral column, pelvis and calvarium appears to correspond to abnormal marrow appearance of the visualized osseous structures on CAT scan. Suspect malignancy. Carcinoembryonic antigen 4441. CA 199 antigen 69.5. Colonoscopy from 12/23/2022 revealed a 5 mm cecal and a 1 cm ascending colon polyps status post biopsies. Pathology pending. No masses identified. He will need a liver biopsy. Xarelto, Aspirin and Plavix remain on hold. Computed tomography scan of the abdomen revealed innumerable small nodules throughout the liver. Heterogenous appearance to the osseous structures. Given the liver findings, correlate for potential infiltrative disease or diffuse osseous metastatic disease. CT angiogram from 12/26/2022 ruled out pulmonary embolism. Hypercalcemia. Received Zometa. Calcium level improved. Acute hypoxemic respiratory failure secondary to an acute exacerbation of chronic obstructive pulmonary disease. Left lower lobe pulmonary nodule measuring 1.5 cm, will need an outpatient PET CT and further investigation. Probable metastatic disease to the lung. Coronary artery disease. Vascular disease with a previous fem-pop bypass surgery. Bilateral carotid endarterectomies. Coronary artery disease and coronary stenting. Previous history of CVA. Previous history of DVT of the left lower extremity. Previous history of Covid 19 infection in February 2021. Hypertension. Hyperlipidemia. Abnormal LFTs with cholelithiasis without evidence of cholecystitis. History of nephrolithiasis. Plan: Plan dated 12/28/2022. The patient was seen and evaluated, and examine. He continues on 4 L of oxygen. According to the note from oncology yesterday, apparently interventional radiology is saying that the lesions in the liver may be too small to biopsy. An outpatient PET scan is being recommended. The patient continues on Zosyn, bronchodilators, and Solu-Medrol. The patient received 1 dose of Lasix yesterday. No additional recommendations are made. Prognosis is certainly guarded. We will continue to follow make recommendations along the way. Plan dated 12/29/2022. The patient's on all appropriate medications. We spent a great deal of time in the room today, telling the patient are plans, as well as talking to the patient's . We told the patient, and his , that from the pulmonary standpoint, there is nothing to sample. There is not enough fluid in the pleu ral spaces to attempt thoracentesis. It would only lead to a complication such as pneumothorax. The patient should have an outpatient PET scan, which might provide a target for biopsy. Hopefully, his respiratory status is improved. Additional recommendations and suggestions are forthcoming. Everything was explained in detail to the patient, and to the patient's . Plan dated 12/30/2022. The patient continues on AIRVO. The patient is not receiving any IV fluids. Clinically, his breathing is improved, according to him. The patient is scheduled to have an MRI of his liver, late, this will identify a target lesion, that interventional radiology can biopsy. Additional recommendations and suggestions are forthcoming. Overall prognosis remains very guarded. The was in the room along with the patient. No additional recommendations are made. Time with Patient: Less than 30
[2022-12-30 11:48] LABS: Glucose,Whole Blood 127 mg/dL (70-110)
--- NOTE | 2022-12-30 11:52 | P.PN ---
Subjective Progress Note Date: 12/30/22 Principal diagnosis: abdominal pain At today's visit patient is resting comfortably in bed. at bedside. Patient reports feeling improved today. Reports persisting cough. SpO2 96% on airvo. Continues on zosyn Objective - Vital Signs Vital signs: Vital Signs Temp 97.2 F L 12/30/22 08:00 Pulse 86 12/30/22 11:39 Resp 24 12/30/22 08:00 BP 116/64 12/30/22 08:00 Pulse Ox 96 12/30/22 08:00 FiO2 70 12/30/22 11:43 Intake & Output 12/29/22 12/30/22 12/30/22 18:59 06:59 18:59 Intake Total 1150 240 Output Total 690 450 425 Balance 460 -450 -185 Weight 104 kg 104 kg Intake: Intake, IV Titration 100 Amount Piperacillin-Tazobactam 3 100 .375 gm In Sodium Chloride 0.9% 100 ml @ 25 mls/hr IVPB Q8H [facility] Rx#: [id number] Oral 1050 240 Output: Urine 690 450 425 Other: Voiding Method Indwelling Catheter Indwelling Catheter Indwelling Catheter # Bowel Movements 1 - Constitutional General appearance: Present: no acute distress, obese - EENT Eyes: Present: anicteric sclerae, EOMI ENT: Present: hearing grossly normal - Respiratory Details: breathing unlabored - Cardiovascular Details: skin warm and dry - Integumentary Integumentary: Absent: cyanotic, jaundiced - Musculoskeletal Musculoskeletal: Present: generalized weakness - Psychiatric Psychiatric: Present: A&O x's 3, appropriate affect, intact judgment & insight - Labs CBC & Chem 7: 12/29/22 07:30 12/28/22 06:40 Labs: Abnormal Lab Results - Last 24 Hours (Table) 12/29/22 12/29/22 12/29/22 Range/Units 07:30 16:29 20:02 RBC 4.09 L (4.40-5.60) X 10*6/uL MCV 98.3 H (80.0-97.0) FL RDW 14.8 H (11.5-14.5) % Neutrophils # 7.88 H (1.80-7.70) X 10*3/uL Lymphocytes # 0.88 L (0.90-5.00) X 10*3/uL NRBC/100 WBC Diff 0.04 H (0.00-0.01) X 10*3/uL POC Glucose (mg/dL) 172 H 189 H (70-110) mg/dL 12/30/22 Range/Units 06:02 RBC (4.40-5.60) X 10*6/uL MCV (80.0-97.0) FL RDW (11.5-14.5) % Neutrophils # (1.80-7.70) X 10*3/uL Lymphocytes # (0.90-5.00) X 10*3/uL NRBC/100 WBC Diff (0.00-0.01) X 10*3/uL POC Glucose (mg/dL) 168 H (70-110) mg/dL Assessment and Plan (1) Hypercalcemia Current Visit: Yes Status: Resolved Priority: High Code(s): E83.52 - HYPERCALCEMIA SNOMED Code(s): 58662635 (2) Liver lesion Current Visit: Yes Status: Acute Priority: High Code(s): K76.9 - LIVER DISEASE, UNSPECIFIED SNOMED Code(s): 928402481 Plan: Liver lesion -Outpatient plans for biopsy on 01/06. Bx will happen only if the Radiologist coming on feels that the liver lesions can be biopsied. Have to await their review of the case and recommendations -MRI of the liver ordered for a closer look-any larger lesion that could be a better target. If nothing on the MRI of liver looks amenable to biopsy will plan a PET scan and then schedule a biopsy. Patient's liver enzymes are increasing. -CEA elevated at 4441 -Patient do understand that there are concerns for malignancy, just pending a target for biopsy-feeling frustrated -Aspirin has been held -EGD and colonoscopy completed, cecal polyp and ascending colon polyp. Pathology reporting tubular adenoma Abdominal pain -Pain mgmt consulted and managing Shortness of breath -Improved on airvo -US chest, no significant pleural fluid to consider thoracentesis -CXR stable. Continues on zosyn -Pulmonary following Hypercalcemia-resolved -Treated with calcitonin and zometa. -PTH significantly low, 5.4. PTHrP is still pending -Concern is that this is hypercalcemia of malignancy. attests: I have seen and examined patient, performed H&P, developed imp ression and plan of care. Discussed with dictator. Agree with dictation, documented as a scribe
[2022-12-30] MEDS ORDERED: Magnesium Replacement Protocol 1 EACH MISC MISCELLANE PRN (14:58)
[2022-12-30] MEDS ORDERED: Potassium Replacement Protocol 1 EACH MISC MISCELLANE PRN (14:58)
[2022-12-30 16:50] LABS: Glucose,Whole Blood 131 mg/dL (70-110)
[2022-12-30 20:12] LABS: Glucose,Whole Blood 159 mg/dL (70-110)
[2022-12-30] MEDS: amLODIPine 10 MG TAB PO SCH (20:30)
[2022-12-30] MEDS: ATORVASTATIN 80 MG TAB PO SCH (20:30)
--- NOTE | 2022-12-31 00:34 | PN ---
PROGRESS NOTE DATE OF SERVICE: 12/30/2022 SUBJECTIVE: This 67-year-old gentleman was admitted with multiple medical problems including possibly cirrhosis, possibly metastatic disease, also had shortness of breath. The patient also had patchy infiltrates. Overall, the patient is slightly better, still short of breath. The patient is on AIRVO. MRI is being planned at this time. PAST MEDICAL HISTORY: Reviewed. REVIEW OF SYSTEMS: A 14-point review is negative except as mentioned earlier. CURRENT MEDICATIONS: Reviewed include DuoNeb, dose and rest of the medications reviewed. PHYSICAL EXAMINATION: VITAL SIGNS: Pulse 70 to 80, blood pressure 140/70, respirations 20. HEENT: Conjunctivae normal. NECK: No jugular venous distention. CARDIOVASCULAR: S1, S2 muffled. RESPIRATIONS: Bilateral scattered rhonchi. ABDOMEN: Soft, obese. LEGS: No edema, no swelling. NERVOUS SYSTEM: No focal deficit. LABORATORY DATA: Hemoglobin 13.2, rest of the labs are noted. ASSESSMENT: 1. Shortness of breath, possibly COPD exacerbation with bibasilar pneumonia. 2. Liver cirrhosis, rule out metastatic malignancy. 3. Coronary artery disease. 4. History of CVA. 5. Multiple medical issues. RECOMMENDATIONS: To continue current management, continue symptomatic treatment. Continue with bronchodilators. Continue with rest of medications. Continue the IV steroids. Prognosis guarded. Further recommendations to follow. MMODL / IJN: [id number] /
[2022-12-31] MEDS: PIPERACILLIN-TAZOBACTAM 3.375 GM in SODIUM CHLORIDE 0.9% 100 ML IVPB SCH ×3 (03:00→17:20)
[2022-12-31] MEDS: MORPHINE SULFATE 4 MG/ML SYRINGE IVP PRN ×2 (03:06→15:08)
[2022-12-31 05:56] LABS: Glucose,Whole Blood 124 mg/dL (70-110)
[2022-12-31] MEDS: methylPREDNISolone SOD SUCCI 125 MG/2 ML VIAL IV SCH ×4 (06:06→23:02)
[2022-12-31] MEDS: INSULIN ASPART (NovoLOG) 100 UNIT/ML VIAL SQ SCH ×4 (06:06→20:23)
[2022-12-31] MEDS: FORMOTEROL FUMARATE 20 MCG/2 ML NEBU INHALATION SCH ×2 (08:02→20:30)
[2022-12-31] MEDS: BUDESONIDE 1 MG/2 ML NEBU INHALATION SCH ×2 (08:02→20:30)
[2022-12-31] MEDS: IPRATROPIUM-ALBUTEROL 3 ML NEB INHALATION SCH ×4 (08:02→20:30)
[2022-12-31] MEDS: DOCUSATE 100 MG CAP PO SCH ×2 (08:34→20:23)
[2022-12-31] MEDS: LOSARTAN 50 MG TAB PO SCH (08:34)
[2022-12-31] MEDS: PANTOPRAZOLE 40 MG/10 ML VIAL IV SCH ×2 (08:34→20:23)
[2022-12-31] MEDS: HEPARIN SODIUM,PORCINE/PF 5,000 UNIT/0.5 ML SYRINGE SQ SCH ×3 (08:34→23:02)
[2022-12-31] MEDS: GABAPENTIN 300 MG CAP PO SCH ×2 (08:35→20:23)
[2022-12-31] MEDS: EZETIMIBE 10 MG TAB PO SCH (08:35)
[2022-12-31] MEDS: THIAMINE 100 MG TAB PO SCH (08:35)
[2022-12-31] MEDS: SENNOSIDES-DOCUSATE SODIUM 1 EACH TAB PO SCH ×2 (08:35→20:22)
[2022-12-31] MEDS: DULoxetine HCL 30 MG CAPSULE.DR PO SCH ×2 (08:35→20:23)
[2022-12-31] MEDS: BACLOFEN 10 MG TAB PO SCH ×2 (08:35→20:23)
[2022-12-31] MEDS: METOPROLOL TARTRATE 25 MG TAB PO SCH ×2 (08:35→20:22)
[2022-12-31] MEDS ORDERED: FUROSEMIDE 10 MG/ML 4 ML VIAL IV STA (08:42)
--- NOTE | 2022-12-31 11:16 | P.PN ---
Subjective Progress Note Date: 12/31/22 Principal diagnosis: Weakness, shortness of breath. The patient is seen today 12/24/2022 in follow-up on the regular medical floor. He is currently sitting up at the bedside. He is having quite a bit of abdominal discomfort this morning. More so than his initial complaints. He did undergo EGD yesterday that revealed a small hiatal hernia and mild gastritis. Colonoscopy revealed a 5 mm cecal and a 1 cm ascending colon polyps status post biopsies. Pathology pending. No masses identified. He will still need a liver biopsy. Glucose 92. He is continued on DuoNeb inhalations, Symbicort, prednisone taper. Heparin for DVT prophylaxis. The patient is seen today 12/25/2022 in follow-up on the regular medical floor. He is sitting in bed. Awake and alert in no acute distress. Vital having some ongoing issues with abdominal discomfort and bilateral rib pain. He is still requiring 4 L/m per nasal cannula with O2 saturations at 88% this morning. A follow-up chest x-ray revealed some developing atelectasis of the left lung base. He is currently on DuoNeb inhalations, Symbicort, prednisone taper. Heparin for DVT prophylaxis. He is afebrile. Hemodynamically stable. Awaiting liver biopsy. Remains off Plavix, aspirin and Xarelto. Reevaluated today on 12/26/2022, patient is feeling a bit better but his shortness of breath is a bit worse. Last chest x-ray showed atelectasis of the left base, patient is having today some cough, cough is productive with yellow phlegm, he was already placed on Zosyn empirically for his atelectasis, questionable pneumonia, today I am recommending a CT angiogram of the chest as the patient seems to be a high risk for pulmonary embolism considering his presumptive underlying GI malignancy . Follow-up CT angiogram showed no evidence of pulmonary embolism it did show medial right lower lobe consolidation and atelectasis with volume loss, and left basilar atelectasis. Nonetheless patient is on antibiotics empirically although clinically I still doubt pneumonia being the findings are mostly findings of atelectasis. The patient is seen today 12/27/2022 in follow-up on the regular medical floor. He is sitting up in bed. Awake and alert in no acute distress. CT angiogram ruled out pulmonary embolism. There is a medial right lower lobe consolidation with volume loss consistent with atelectasis. 1.6 cm pulmonary nodule in the left lower lobe. Mild COPD. He is maintaining O2 saturations in the 90s on 4 L/m per nasal cannula. Normal saline at KVO. Blood culture reveals no growth. Sputum culture revealed no growth. ProBNP 1610. Glucose 118. He is continued on DuoNeb inhalations, Symbicort, IV Solu-Medrol. Heparin for DVT prophylaxis. Antibiotics in the form of Zosyn. Progress note dated 12/28/2022. The patient is seen today in room 531, on the general medical floor. He sitting up in bed. He continues on oxygen at 5 L. He is getting saline at 20 mL an hour. According to the last note from oncology, the patient's liver lesions, may be too small for interventional radiology to do a biopsy. The patient will likely need an outpatient PET scan, to determine if there is at target, that can be sampled. Currently, his only complaint is abdominal distention and some mild abdominal pain. No new labs as yet. Progress note dated 12/29/2022. The patient is seen today in room 376. The patient was transferred down to the third floor yesterday, because of worsening respiratory status, and placed on AIRVO. His current settings include 60 L/m with an FiO2 of 88%. He's not receiving any IV fluids. He continues on Zosyn. We did an ultrasound of the posterior chest, to see if there is any fluid in either pleural space, to attempt a thoracentesis. Unfortunately, there is no fluid on either side. White count is 9.94, hemoglobin 13.1, hematocrit 40.2, and platelet count 177,000. AST is 376. ALT is 135, and alkaline phosphatase is 284. N-terminal proBNP is 870. Phosphorus is 2.2. Glucose is 159. Chest x-ray shows patchy infiltrates, and some improvement in the overall pattern. Ultrasound did not reveal any significant fluid on either side. Progress note dated 12/30/2022. The patient is seen today in room 376. His is in the room as well. The patient continues on AIRVO, with settings of 54 L/m and an FiO2 of 92%. The patient is not receiving any IV fluids. The patient is scheduled to have an MRI of his liver, so that hopefully, a target lesion can be identified, for possible biopsy, by interventional radiology. No new labs today other than a glucose of 168. Progress note dated 12/31/2022. The patient is seen today in room 376. He is currently on nasal cannula, high flow, and 13 L/m. Saturations are 93-94%. The patient had a CT angiogram back on December 26, that was negative for pulmonary embolism. The patient will be started on Lasix 40 mg IV push, twice a day, and we will assess her chest x-ray tomorrow, as well as blood work. The patient states that since receiving a dose of Lasix is morning, his breathing is better. Labs today include a glucose of 124. Culture data is negative. Objective - Vital Signs Vital signs: Vital Signs Temp 97.7 F 12/31/22 08:00 Pulse 90 12/31/22 08:30 Resp 24 12/31/22 08:00 BP 143/79 12/31/22 08:00 Pulse Ox 93 L 12/31/22 08:02 FiO2 82 12/30/22 15:53 Intake & Output 12/30/22 12/31/22 12/31/22 18:59 06:59 18:59 Intake Total 1674 240 Output Total 1050 750 200 Balance 624 -750 40 Weight 104 kg Intake: Oral 1674 240 Output: Urine 1050 750 200 Other: Voiding Method Indwelling Catheter Indwelling Catheter Indwelling Catheter - Exam No acute distress, oriented 3. Currently on high flow nasal cannula. No res piratory distress. No conversational dyspnea, and no use of accessory muscles. HEENT examination is grossly unremarkable. Neck supple. Full range of motion. No adenopathy thyromegaly or neck vein distention. Cardiovascular examination reveals regular rhythm rate. S1-S2 normal. No S3 or S4. No discernible murmur noted. Heart rate 90 bpm. Lungs reveal scattered rhonchi. No wheezes or crackles. Breath sounds equal bilaterally. The patient does not take deep breaths. Saturations are 93 %. Abdomen distended and mildly tender. Bowel sounds are noted. Extremities are intact. No cyanosis clubbing or edema. Skin reveals multiple areas of ecchymoses. Neurologic examination is brief but nonfocal. - Labs CBC & Chem 7: 12/29/22 07:30 12/28/22 06:40 Labs: Abnormal Lab Results - Last 24 Hours (Table) 12/30/22 12/30/22 12/30/22 Range/Units 11:47 16:49 20:11 POC Glucose (mg/dL) 127 H 131 H 159 H (70-110) mg/dL 12/31/22 Range/Units 05:54 POC Glucose (mg/dL) 124 H (70-110) mg/dL Assessment and Plan Assessment: Diffuse skeletal pain involving the chest wall and back. Bone scan did reveal marked heterogenous uptake involving the bilateral rib cage, vertebral column, pelvis and calvarium appears to correspond to abnormal marrow appearance of the visualized osseous structures on CAT scan. Suspect malignancy. Carcinoembryonic antigen 4441. CA 199 antigen 69.5. Colonoscopy from 12/23/2022 revealed a 5 mm cecal and a 1 cm ascending colon polyps status post biopsies. Pathology pending. No masses identified. He will need a liver biopsy. Xarelto, Aspirin and Plavix remain on hold. Computed tomography scan of the abdomen revealed innumerable small nodules throughout the liver. Heterogenous appearance to the osseous structures. Given the liver findings, correlate for potential infiltrative disease or diffuse osseous metastatic disease. CT angiogram from 12/26/2022 ruled out pulmonary embolism. Hypercalcemia. Received Zometa. Calcium level improved. Acute hypoxemic respiratory failure secondary to an acute exacerbation of chronic obstructive pulmonary disease. Left lower lobe pulmonary nodule measuring 1.5 cm, will need an outpatient PET CT and further investigation. Probable metastatic disease to the lung. Coronary artery disease. Vascular disease with a previous fem-pop bypass surgery. Bilateral carotid endarterectomies. Coronary artery disease and coronary stenting. Previous history of CVA. Previous history of DVT of the left lower extremity. Previous history of Covid 19 infection in February 2021. Hypertension. Hyperlipidemia. Abnormal LFTs with cholelithiasis without evidence of cholecystitis. History of nephrolithiasis. Plan: Plan dated 12/28/2022. The patient was seen and evaluated, and examine. He continues on 4 L of oxygen. According to the note from oncology yesterday, apparently interventional radiology is saying that the lesions in the liver may be too small to biopsy. An outpatient PET scan is being recommended. The patient continues on Zosyn, bronchodilators, and Solu-Medrol. The patient received 1 dose of Lasix yester day. No additional recommendations are made. Prognosis is certainly guarded. We will continue to follow make recommendations along the way. Plan dated 12/29/2022. The patient's on all appropriate medications. We spent a great deal of time in the room today, telling the patient are plans, as well as talking to the patient's . We told the patient, and his , that from the pulmonary sta ndpoint, there is nothing to sample. There is not enough fluid in the pleural spaces to attempt thoracentesis. It would only lead to a complication such as pneumothorax. The patient should have an outpatient PET scan, which might provide a target for biopsy. Hopefully, his respiratory status is improved. Additional recommendations and suggestions are forthcoming. Everything was explained in detail to the patient, and to the patient's . Plan dated 12/30/2022. The patient continues on AIRVO. The patient is not receiving any IV fluids. Clinically, his breathing is improved, according to him. The patient is scheduled to have an MRI of his liver, late, this will identify a target lesion, that interventional radiology can biopsy. Additional recommendations and suggestions are forthcoming. Overall prognosis remains very guarded. The was in the room along with the patient. No additional recommendations are made. Plan dated 12/31/2022. The patient is given Lasix, 40 mg IV push, twice a day. He seems to respond favorably to Lasix. Also, we asked for a chest x-ray, and some lab work in the morning. Labs, x-rays, and medications are reviewed. The patient was to have a MRI of the liver, for possible biopsy. Additional recommendations and suggestions are forthcoming. Prognosis is certainly guarded. Malignancy is suspected strongly. Time with Patient: Less than 30
[2022-12-31 11:35] LABS: Glucose,Whole Blood 114 mg/dL (70-110)
[2022-12-31 11:45] LABS: Basophils % (A) 0 %; Eosinophils # (A) 0.1 k/uL (0-0.7); Eosinophils % (A) 1 %; HCT 37.1 % (39.0-53.0); HGB 12.4 gm/dL (13.0-17.5); Lymphocytes # (A) 0.6 k/uL (1.0-4.8); Lymphocytes % (A) 6 %; MCH 32.7 pg (25.0-35.0); MCHC 33.5 g/dL (31.0-37.0); MCV 97.6 fL (80.0-100.0); Mean Platelet Volume 8.1; Monocytes # (A) 0.4 k/uL (0-1.0); Monocytes % (A) 4 %; Neutrophils # (A) 8.2 k/uL (1.3-7.7); Neutrophils % (A) 88 %; RDW 14.2 % (11.5-15.5); WBC 9.4 k/uL (3.8-10.6)
[2022-12-31 11:49] LABS: INR 1.2 (<1.2); Prothrombin Time 12.5 sec (9.0-12.0)
[2022-12-31 12:12] LABS: ALT 126 U/L (4-49); AST 298 U/L (17-59); African American GFR (CKD) >90 (>60 ml/min/1.73 sqM); Albumin 3.3 g/dL (3.5-5.0); Alkaline Phosphatase 307 U/L (38-126); Anion Gap 8 mmol/L; Bilirubin, Delta 0.6 mg/dL (0.0-0.2); Bilirubin,Unconjugated 0.4 mg/dL (0.0-1.1); Blood Urea Nitrogen 24 mg/dL (9-20); Calcium 7.1 mg/dL (8.4-10.2); Carbon Dioxide 23 mmol/L (22-30); Chloride 106 mmol/L (98-107); Glucose 120 mg/dL (74-99); Non-African American GFR(CKD) >90 (>60 ml/min/1.73 sqM); Platelet Count 72 k/uL (150-450); Sodium 137 mmol/L (137-145); Total Protein 6.5 g/dL (6.3-8.2)
--- NOTE | 2022-12-31 13:46 | PN ---
PROGRESS NOTE DATE OF SERVICE: 12/31/2022 SUBJECTIVE: This is a 67-year-old gentleman who was admitted with suspected bilateral liver lesions also and shortness of breath. The patient is being evaluated at this time and the patient is awaiting MRI ordered by Hematology Oncology. PAST MEDICAL HISTORY: Reviewed. REVIEW OF SYSTEMS: A 14-point review is negative except as mentioned earlier. CURRENT MEDICATIONS: Reviewed include Norvasc, DuoNeb, dose and rest of medications noted. PAST MEDICAL HISTORY: Reviewed. PHYSICAL EXAMINATION: VITAL SIGNS: Pulse 70, blood pressure 130/70, respirations 21. HEENT: Conjunctivae normal. NECK: No jugular venous distention. CARDIOVASCULAR: S1, S2 muffled. RESPIRATIONS: Bilateral scattered rhonchi, expiratory wheezing also present. ABDOMEN: Soft, obese. LEGS: No edema, no swelling. NERVOUS SYSTEM: No focal deficits. LABS: Hemoglobin 12.4, platelets 72, and AST, ALT, alkaline phosphatase is elevated. ASSESSMENT: 1. Acute hypoxic respiratory failure. 2. Shortness of breath, possible COPD acute exacerbation with bibasilar pneumonia present on admission. 3. Hepatic lesions, possibly liver cirrhosis, rule out metastatic malignancy. 4. Coronary artery disease. 5. History of CVA. 6. Multiple medical issues. RECOMMENDATIONS: Recommended to continue current management, continue symptomatic treatment. Otherwise at this time, I would recommend to continue with the current medications. The patient did have a CT angio of the back on 12/18/2002 which I reviewed personally, showed 1.5 cm pulmonary nodule and no evidence of acute pulmonary embolism. Once again, the prognosis guarded. Further recommendations to follow. MMODL / IJN: [id number] /
[2022-12-31 16:26] LABS: Glucose,Whole Blood 145 mg/dL (70-110)
[2022-12-31 20:12] LABS: Glucose,Whole Blood 219 mg/dL (70-110)
[2022-12-31] MEDS: ATORVASTATIN 80 MG TAB PO SCH (20:22)
[2022-12-31] MEDS: amLODIPine 10 MG TAB PO SCH (20:23)
[2022-12-31] MEDS: FUROSEMIDE 10 MG/ML 4 ML VIAL IV SCH (20:23)
[2023-01-01] MEDS: MORPHINE SULFATE 4 MG/ML SYRINGE IVP PRN ×4 (02:42→21:10)
[2023-01-01] MEDS: PIPERACILLIN-TAZOBACTAM 3.375 GM in SODIUM CHLORIDE 0.9% 100 ML IVPB SCH ×3 (02:42→17:23)
[2023-01-01] MEDS: methylPREDNISolone SOD SUCCI 125 MG/2 ML VIAL IV SCH ×3 (06:18→17:22)
[2023-01-01 06:23] LABS: Glucose,Whole Blood 144 mg/dL (70-110)
[2023-01-01] MEDS: INSULIN ASPART (NovoLOG) 100 UNIT/ML VIAL SQ SCH ×4 (06:40→22:25)
--- NOTE | 2023-01-01 07:09 | XR ---
EXAMINATION TYPE: XR chest 1V portable DATE OF EXAM: 01/01/2023 6:16 AM COMPARISON: Chest radiographs from 12/29/2022 TECHNIQUE: XR chest 1V portable Portable AP radiograph of the chest. CLINICAL INDICATION:Male, 67 years old with history of Hypoxemia; FINDINGS: Lungs/Pleura: No pneumothorax or pleural effusion. Development of right midlung patchy airspace opaci ties in prominence of the right hilum. Additional patchy airspace opacities identified within the lef t lung base. Pulmonary vascularity: Unremarkable. Heart/mediastinum: Cardiomediastinal silhouette is prominent in size. Atherosclerotic calcifications are seen in the aorta. Musculoskeletal: No acute osseous pathology. IMPRESSION: 1. Development of right midlung patchy airspace opacities with additional airspace opacities at the left lung base concerning for pneumonia. 2. Prominence of the right hilum suggestive of adenopathy.
[2023-01-01] MEDS: IPRATROPIUM-ALBUTEROL 3 ML NEB INHALATION SCH ×4 (08:20→21:18)
[2023-01-01] MEDS: FORMOTEROL FUMARATE 20 MCG/2 ML NEBU INHALATION SCH ×2 (08:21→21:18)
[2023-01-01] MEDS: BUDESONIDE 1 MG/2 ML NEBU INHALATION SCH ×2 (08:21→21:18)
[2023-01-01] MEDS: PANTOPRAZOLE 40 MG/10 ML VIAL IV SCH ×2 (08:45→21:09)
[2023-01-01] MEDS: GABAPENTIN 300 MG CAP PO SCH ×2 (08:46→21:13)
[2023-01-01] MEDS: SENNOSIDES-DOCUSATE SODIUM 1 EACH TAB PO SCH ×2 (08:46→21:15)
[2023-01-01] MEDS: FUROSEMIDE 10 MG/ML 4 ML VIAL IV SCH ×2 (08:46→21:12)
[2023-01-01] MEDS: DULoxetine HCL 30 MG CAPSULE.DR PO SCH ×2 (08:46→21:15)
[2023-01-01] MEDS: BACLOFEN 10 MG TAB PO SCH ×2 (08:52→21:15)
[2023-01-01] MEDS: EZETIMIBE 10 MG TAB PO SCH (08:52)
[2023-01-01] MEDS: HEPARIN SODIUM,PORCINE/PF 5,000 UNIT/0.5 ML SYRINGE SQ SCH ×2 (08:54→17:22)
[2023-01-01] MEDS: DOCUSATE 100 MG CAP PO SCH ×2 (08:54→21:15)
[2023-01-01] MEDS: THIAMINE 100 MG TAB PO SCH (08:54)
[2023-01-01] MEDS: METOPROLOL TARTRATE 25 MG TAB PO SCH ×2 (08:57→21:15)
[2023-01-01] MEDS: LOSARTAN 50 MG TAB PO SCH (09:08)
--- NOTE | 2023-01-01 11:29 | P.PN ---
Subjective Progress Note Date: 01/01/23 Principal diagnosis: Weakness, shortness of breath. The patient is seen today 12/24/2022 in follow-up on the regular medical floor. He is currently sitting up at the bedside. He is having quite a bit of abdominal discomfort this morning. More so than his initial complaints. He did undergo EGD yesterday that revealed a small hiatal hernia and mild gastritis. Colonoscopy revealed a 5 mm cecal and a 1 cm ascending colon polyps status post biopsies. Pathology pending. No masses identified. He will still need a liver biopsy. Glucose 92. He is continued on DuoNeb inhalations, Symbicort, prednisone taper. Heparin for DVT prophylaxis. The patient is seen today 12/25/2022 in follow-up on the regular medical floor. He is sitting in bed. Awake and alert in no acute distress. Vital having some ongoing issues with abdominal discomfort and bilateral rib pain. He is still requiring 4 L/m per nasal cannula with O2 saturations at 88% this morning. A follow-up chest x-ray revealed some developing atelectasis of the left lung base. He is currently on DuoNeb inhalations, Symbicort, prednisone taper. Heparin for DVT prophylaxis. He is afebrile. Hemodynamically stable. Awaiting liver biopsy. Remains off Plavix, aspirin and Xarelto. Reevaluated today on 12/26/2022, patient is feeling a bit better but his shortness of breath is a bit worse. Last chest x-ray showed atelectasis of the left base, patient is having today some cough, cough is productive with yellow phlegm, he was already placed on Zosyn empirically for his atelectasis, questionable pneumonia, today I am recommending a CT angiogram of the chest as the patient seems to be a high risk for pulmonary embolism considering his presumptive underlying GI malignancy . Follow-up CT angiogram showed no evidence of pulmonary embolism it did show medial right lower lobe consolidation and atelectasis with volume loss, and left basilar atelectasis. Nonetheless patient is on antibiotics empirically although clinically I still doubt pneumonia being the findings are mostly findings of atelectasis. The patient is seen today 12/27/2022 in follow-up on the regular medical floor. He is sitting up in bed. Awake and alert in no acute distress. CT angiogram ruled out pulmonary embolism. There is a medial right lower lobe consolidation with volume loss consistent with atelectasis. 1.6 cm pulmonary nodule in the left lower lobe. Mild COPD. He is maintaining O2 saturations in the 90s on 4 L/m per nasal cannula. Normal saline at KVO. Blood culture reveals no growth. Sputum culture revealed no growth. ProBNP 1610. Glucose 118. He is continued on DuoNeb inhalations, Symbicort, IV Solu-Medrol. Heparin for DVT prophylaxis. Antibiotics in the form of Zosyn. Progress note dated 12/28/2022. The patient is seen today in room 531, on the general medical floor. He sitting up in bed. He continues on oxygen at 5 L. He is getting saline at 20 mL an hour. According to the last note from oncology, the patient's liver lesions, may be too small for interventional radiology to do a biopsy. The patient will likely need an outpatient PET scan, to determine if there is at target, that can be sampled. Currently, his only complaint is abdominal distention and some mild abdominal pain. No new labs as yet. Progress note dated 12/29/2022. The patient is seen today in room 376. The patient was transferred down to the third floor yesterday, because of worsening respiratory status, and placed on AIRVO. His current settings include 60 L/m with an FiO2 of 88%. He's not receiving any IV fluids. He continues on Zosyn. We did an ultrasound of the posterior chest, to see if there is any fluid in either pleural space, to attempt a thoracentesis. Unfortunately, there is no fluid on either side. White count is 9.94, hemoglobin 13.1, hematocrit 40.2, and platelet count 177,000. AST is 376. ALT is 135, and alkaline phosphatase is 284. N-terminal proBNP is 870. Phosphorus is 2.2. Glucose is 159. Chest x-ray shows patchy infiltrates, and some improvement in the overall pattern. Ultrasound did not reveal any significant fluid on either side. Progress note dated 12/30/2022. The patient is seen today in room 376. His is in the room as well. The patient continues on AIRVO, with settings of 54 L/m and an FiO2 of 92%. The patient is not receiving any IV fluids. The patient is scheduled to have an MRI of his liver, so that hopefully, a target lesion can be identified, for possible biopsy, by interventional radiology. No new labs today other than a glucose of 168. Progress note dated 12/31/2022. The patient is seen today in room 376. He is currently on nasal cannula, high flow, and 13 L/m. Saturations are 93-94%. The patient had a CT angiogram back on December 26, that was negative for pulmonary embolism. The patient will be started on Lasix 40 mg IV push, twice a day, and we will assess her chest x-ray tomorrow, as well as blood work. The patient states that since receiving a dose of Lasix is morning, his breathing is better. Labs today include a glucose of 124. Culture data is negative. Progress note dated 01/01/2023. The patient is again seen today in room 376. Currently, the patient is on 15 L high flow oxygen, by nasal cannula, with saturations of 90%. The patient is on maximal medical therapy for his lungs including albuterol, ipratropium bromide, Pulmicort, formoterol, and corticosteroids. The patient apparently could not to lerate lying down for an MRI of the liver. The only lab today is a glucose of 144. Chest x-ray shows a right midlung patchy infiltrate, among other things. Objective - Vital Signs Vital signs: Vital Signs Temp 98.3 F 01/01/23 08:55 Pulse 80 01/01/23 09:00 Resp 24 01/01/23 08:55 BP 115/61 01/01/23 08:55 Pulse Ox 90 L 01/01/23 08:55 FiO2 82 12/30/22 15:53 Intake & Output 12/31/22 01/01/23 01/01/23 18:59 06:59 18:59 Intake Total 898 118 Output Total 2700 1700 Balance -1802 -1700 118 Weight 100.7 kg Intake: Oral 898 118 Output: Urine 2700 1700 Other: Voiding Method Indwelling Catheter Indwelling Catheter Indwelling Catheter - Exam No acute distress, oriented 3. Currently on high flow nasal cannula. No respiratory distress. No conversational dyspnea, and no use of accessory muscles. HEENT examination is grossly unremarkable. Neck supple. Full range of motion. No adenopathy thyromegaly or neck vein distention. Cardiovascular examination reveals regular rhythm rate. S1-S2 normal. No S3 or S4. No discernible murmur noted. Heart rate 80 bpm. Lungs reveal scattered rhonchi. No wheezes or crackles. Breath sounds equal bilaterally. The patient does not take deep breaths. Saturations are 90 %. Abdomen distended and mildly tender. Bowel sounds are noted. Extremities are intact. No cyanosis clubbing or edema. Skin reveals multiple areas of ecchymoses. Neurologic examination is brief but nonfocal. - Labs CBC & Chem 7: 12/31/22 10:54 12/31/22 10:54 Labs: Abnormal Lab Results - Last 24 Hours (Table) 12/31/22 12/31/22 12/31/22 Range/Units 10:54 10:54 10:54 RBC 3.80 L (4.30-5.90) m/uL Hgb 12.4 L (13.0-17.5) gm/dL Hct 37.1 L (39.0-53.0) % Plt Count 72 L (150-450) k/uL Neutrophils # 8.2 H (1.3-7.7) k/uL Lymphocytes # 0.6 L (1.0-4.8) k/uL PT 12.5 H (9.0-12.0) sec INR 1.2 H (<1.2) BUN 24 H (9-20) mg/dL Glucose 120 H (74-99) mg/dL POC Glucose (mg/dL) (70-110) mg/dL Calcium 7.1 L (8.4-10.2) mg/dL Delta Bilirubin 0.6 H (0.0-0.2) mg/dL AST 298 H (17-59) U/L ALT 126 H (4-49) U/L Alkaline Phosphatase 307 H (38-126) U/L Albumin 3.3 L (3.5-5.0) g/dL 12/31/22 12/31/22 12/31/22 Range/Units 11:34 16:25 20:11 RBC (4.30-5.90) m/uL Hgb (13.0-17.5) gm/dL Hct (39.0-53.0) % Plt Count (150-450) k/uL Neutrophils # (1.3-7.7) k/uL Lymphocytes # (1.0-4.8) k/uL PT (9.0-12.0) sec INR (<1.2) BUN (9-20) mg/dL Glucose (74-99) mg/dL POC Glucose (mg/dL) 114 H 145 H 219 H (70-110) mg/dL Calcium (8.4-10.2) mg/dL Delta Bilirubin (0.0-0.2) mg/dL AST (17-59) U/L ALT (4-49) U/L Alkaline Phosphatase (38-126) U/L Albumin (3.5-5.0) g/dL 01/01/23 Range/Units 06:21 RBC (4.30-5.90) m/uL Hgb (13.0-17.5) gm/dL Hct (39.0-53.0) % Plt Count (150-450) k/uL Neutrophils # (1.3-7.7) k/uL Lymphocytes # (1.0-4.8) k/uL PT (9.0-12.0) sec INR (<1.2) BUN (9-20) mg/dL Glucose (74-99) mg/dL POC Glucose (mg/dL) 144 H (70-110) mg/dL Calcium (8.4-10.2) mg/dL Delta Bilirubin (0.0-0.2) mg/dL AST (17-59) U/L ALT (4-49) U/L Alkaline Phosphatase (38-126) U/L Albumin (3.5-5.0) g/dL Assessment and Plan Assessment: Diffuse skeletal pain involving the chest wall and back. Bone scan did reveal marked heterogenous uptake involving the bilateral rib cage, vertebral column, pelvis and calvarium appears to correspond to abnormal marrow appearance of the visualized osseous structures on CAT scan. Suspect malignancy. Carcinoembryonic antigen 4441. CA 199 antigen 69.5. Colonoscopy from 12/23/2022 revealed a 5 mm cecal and a 1 cm ascending colon polyps status post biopsies. Pathology pending. No masses identified. He will need a liver biopsy. Xarelto, Aspirin and Plavix remain on hold. Computed tomography scan of the abdomen revealed innumerable small nodules throughout the liver. Heterogenous appearance to the osseous structures. Given the liver findings, correlate for potential infiltrative disease or diffuse osseous metastatic disease. CT angiogram from 12/26/2022 ruled out pulmonary embolism. Hypercalcemia. Received Zometa. Calcium level improved. Acute hypoxemic respiratory failure secondary to an acute exacerbation of chronic obstructive pulmonary disease. Left lower lobe pulmonary nodule measuring 1.5 cm, will need an outpatient PET CT and further investigation. Probable metastatic disease to the lung. Coronary artery disease. Vascular disease with a previous fem-pop bypass surgery. Bilateral carotid endarterectomies. Coronary artery disease and coronary stenting. Previous history of CVA. Previous history of DVT of the left lower extremity. Previous history of Covid 19 infection in February 2021. Hypertension. Hyperlipidemia. Abnormal LFTs with cholelithiasis without evidence of cholecystitis. History of nephrolithiasis. Plan: Plan dated 12/28/2022. The patient was seen and evaluated, and examine. He continues on 4 L of oxygen. According to the note from oncology yesterday, apparently interventional radiology is saying that the lesions in the liver may be too small to biopsy. An outpatient PET scan is being recommended. The patient continues on Zosyn, bronchodilators, and Solu-Medrol. The patient received 1 dose of Lasix yesterday. No additional recommendations are made. Prognosis is certainly guarded. We will continue to follow make recommendations along the way. Plan dated 12/29/2022. The patient's on all appropriate medications. We spent a great deal of time in the room today, telling the patient are plans, as well as talking to the patient's . We told the patient, and his , that from the pulmonary standpoint, there is nothing to sample. There is not enough fluid in the pleural spaces to attempt thoracentesis. It would only lead to a complication such as pneumothorax. The patient should have an outpatient PET scan, which might provide a target for biopsy. Hopefully, his respiratory status is imp roved. Additional recommendations and suggestions are forthcoming. Everything was explained in detail to the patient, and to the patient's . Plan dated 12/30/2022. The patient continues on AIRVO. The patient is not receiving any IV fluids. Clinically, his breathing is improved, according to him. The patient is scheduled to have an MRI of his liver, late, this will identify a target lesion, that interventional radiology can biopsy. Additional recommendations and suggestions are forthcoming. Overall prognosis remains very guarded. The was in the room along with the patient. No additional recommendations are made. Plan dated 12/31/2022. The patient is given Lasix, 40 mg IV push, twice a day. He seems to respond favorably to Lasix. Also, we asked for a chest x-ray, and some lab work in the morning. Labs, x-rays, and medications are reviewed. The patient was to have a MRI of the liver, for possible biopsy. Additional recommendations and suggestions are forthcoming. Prognosis is certainly guarded. Malignancy is suspected strongly. Plan dated 01/01/2023. I spent a great deal time talking to the patient and the patient's . The patient's on appropriate medications for a COPD exacerbation. Labs, x-rays, medications are reviewed. The patient apparently was not stable enough to get an MRI of the liver. He apparently could not lay flat, for this procedure. He is obviously not ready for discharge, and for the potential of an outpatient PET scan. The patient's overall prognosis remains very guarded. We will continue to follow. No additional recommendations are made at this time. Time with Patient: Less than 30
[2023-01-01 12:11] LABS: Glucose,Whole Blood 149 mg/dL (70-110)
--- NOTE | 2023-01-01 13:58 | PN ---
PROGRESS NOTE DATE OF SERVICE: 01/01/2023 SUBJECTIVE: This is a 67-year-old gentleman who was admitted with acute hypoxic respiratory failure and possible COPD. MRA of the abdomen for evaluation of liver mass could not be done because of hypoxia. The chest x-ray seems to be improving. OBJECTIVE: VITAL SIGNS: Pulse is 80, blood pressure 115/60, respirations 24. CHEST: Bilateral scattered rhonchi. CARDIOVASCULAR: S1 and S2. ABDOMEN: Soft. NERVOUS SYSTEM: No focal deficits. LABORATORY DATA: Reviewed. ASSESSMENT: 1. Acute hypoxic respiratory failure secondary to chronic obstructive pulmonary disease acute exacerbation with possible bibasilar pneumonia on admission. 2. Hepatic lesions, possibly liver cirrhosis, rule out metastatic malignancy. 3. Coronary artery disease. 4. History of cerebrovascular accident. 5. Multiple medical issues. RECOMMENDATIONS: Recommend to continue current medications, continue symptomatic treatment. Otherwise at this time, I recommend repeat labs. Continue the bronchodilators. Continue rest of medications. Further recommendations to follow. MMODL / IJN: [id number] /
[2023-01-01 16:49] LABS: Glucose,Whole Blood 139 mg/dL (70-110)
[2023-01-01 20:11] LABS: Glucose,Whole Blood 222 mg/dL (70-110)
[2023-01-01] MEDS: ATORVASTATIN 80 MG TAB PO SCH (21:15)
[2023-01-01] MEDS: amLODIPine 10 MG TAB PO SCH (21:15)
[2023-01-02] MEDS: methylPREDNISolone SOD SUCCI 125 MG/2 ML VIAL IV SCH ×5 (00:55→23:46)
[2023-01-02] MEDS: HEPARIN SODIUM,PORCINE/PF 5,000 UNIT/0.5 ML SYRINGE SQ SCH ×4 (00:55→23:46)
[2023-01-02] MEDS: PIPERACILLIN-TAZOBACTAM 3.375 GM in SODIUM CHLORIDE 0.9% 100 ML IVPB SCH ×3 (01:55→17:32)
[2023-01-02 06:14] LABS: Glucose,Whole Blood 136 mg/dL (70-110)
[2023-01-02] MEDS: INSULIN ASPART (NovoLOG) 100 UNIT/ML VIAL SQ SCH ×4 (06:24→22:26)
[2023-01-02] MEDS: MORPHINE SULFATE 4 MG/ML SYRINGE IVP PRN ×3 (06:34→17:49)
[2023-01-02 08:41] LABS: ALT 124 U/L (4-49); AST 309 U/L (17-59); African American GFR (CKD) >90 (>60 ml/min/1.73 sqM); Albumin 3.2 g/dL (3.5-5.0); Alkaline Phosphatase 303 U/L (38-126); Anion Gap 5 mmol/L; Blood Urea Nitrogen 39 mg/dL (9-20); Calcium 6.9 mg/dL (8.4-10.2); Carbon Dioxide 26 mmol/L (22-30); Chloride 107 mmol/L (98-107); Glucose 131 mg/dL (74-99); Non-African American GFR(CKD) 81 (>60 ml/min/1.73 sqM); Potassium 4.1 mmol/L (3.5-5.1); Sodium 138 mmol/L (137-145); Total Bilirubin 0.9 mg/dL (0.2-1.3); Total Protein 6.2 g/dL (6.3-8.2)
[2023-01-02] MEDS: IPRATROPIUM-ALBUTEROL 3 ML NEB INHALATION SCH ×4 (08:41→22:45)
[2023-01-02] MEDS: FORMOTEROL FUMARATE 20 MCG/2 ML NEBU INHALATION SCH ×2 (08:41→22:45)
[2023-01-02] MEDS: BUDESONIDE 1 MG/2 ML NEBU INHALATION SCH ×2 (08:41→22:45)
[2023-01-02 09:22] LABS: Basophils # (A) 0.1 k/uL (0-0.2); Basophils % (A) 1 %; Eosinophils # (A) 0.1 k/uL (0-0.7); Eosinophils % (A) 1 %; HCT 34.7 % (39.0-53.0); HGB 11.4 gm/dL (13.0-17.5); Lymphocytes # (A) 0.7 k/uL (1.0-4.8); Lymphocytes % (A) 8 %; MCH 32.4 pg (25.0-35.0); MCHC 32.9 g/dL (31.0-37.0); MCV 98.2 fL (80.0-100.0); Mean Platelet Volume 9.9; Monocytes # (A) 0.4 k/uL (0-1.0); Monocytes % (A) 4 %; Neutrophils # (A) 7.6 k/uL (1.3-7.7); Neutrophils % (A) 86 %; RBC 3.53 m/uL (4.30-5.90); RDW 14.6 % (11.5-15.5); WBC 8.9 k/uL (3.8-10.6)
[2023-01-02 09:24] LABS: Platelet Count 73 k/uL (150-450)
[2023-01-02] MEDS: PANTOPRAZOLE 40 MG/10 ML VIAL IV SCH ×2 (10:08→21:38)
[2023-01-02] MEDS: GABAPENTIN 300 MG CAP PO SCH ×2 (10:08→21:43)
[2023-01-02] MEDS: DULoxetine HCL 30 MG CAPSULE.DR PO SCH ×2 (10:09→21:43)
[2023-01-02] MEDS: LOSARTAN 50 MG TAB PO SCH (10:09)
[2023-01-02] MEDS: SENNOSIDES-DOCUSATE SODIUM 1 EACH TAB PO SCH ×2 (10:09→21:44)
[2023-01-02] MEDS: BACLOFEN 10 MG TAB PO SCH ×2 (10:09→21:44)
[2023-01-02] MEDS: FUROSEMIDE 10 MG/ML 4 ML VIAL IV SCH ×2 (10:09→21:40)
[2023-01-02] MEDS: METOPROLOL TARTRATE 25 MG TAB PO SCH ×2 (10:09→21:44)
[2023-01-02] MEDS: EZETIMIBE 10 MG TAB PO SCH (10:10)
[2023-01-02] MEDS: DOCUSATE 100 MG CAP PO SCH ×2 (10:11→21:43)
[2023-01-02] MEDS: THIAMINE 100 MG TAB PO SCH (10:11)
--- NOTE | 2023-01-02 11:33 | P.PN ---
Subjective Progress Note Date: 01/02/23 Principal diagnosis: Weakness, shortness of breath. The patient is seen today 12/24/2022 in follow-up on the regular medical floor. He is currently sitting up at the bedside. He is having quite a bit of abdominal discomfort this morning. More so than his initial complaints. He did undergo EGD yesterday that revealed a small hiatal hernia and mild gastritis. Colonoscopy revealed a 5 mm cecal and a 1 cm ascending colon polyps status post biopsies. Pathology pending. No masses identified. He will still need a liver biopsy. Glucose 92. He is continued on DuoNeb inhalations, Symbicort, prednisone taper. Heparin for DVT prophylaxis. The patient is seen today 12/25/2022 in follow-up on the regular medical floor. He is sitting in bed. Awake and alert in no acute distress. Vital having some ongoing issues with abdominal discomfort and bilateral rib pain. He is still requiring 4 L/m per nasal cannula with O2 saturations at 88% this morning. A follow-up chest x-ray revealed some developing atelectasis of the left lung base. He is currently on DuoNeb inhalations, Symbicort, prednisone taper. Heparin for DVT prophylaxis. He is afebrile. Hemodynamically stable. Awaiting liver biopsy. Remains off Plavix, aspirin and Xarelto. Reevaluated today on 12/26/2022, patient is feeling a bit better but his shortness of breath is a bit worse. Last chest x-ray showed atelectasis of the left base, patient is having today some cough, cough is productive with yellow phlegm, he was already placed on Zosyn empirically for his atelectasis, questionable pneumonia, today I am recommending a CT angiogram of the chest as the patient seems to be a high risk for pulmonary embolism considering his presumptive underlying GI malignancy . Follow-up CT angiogram showed no evidence of pulmonary embolism it did show medial right lower lobe consolidation and atelectasis with volume loss, and left basilar atelectasis. Nonetheless patient is on antibiotics empirically although clinically I still doubt pneumonia being the findings are mostly findings of atelectasis. The patient is seen today 12/27/2022 in follow-up on the regular medical floor. He is sitting up in bed. Awake and alert in no acute distress. CT angiogram ruled out pulmonary embolism. There is a medial right lower lobe consolidation with volume loss consistent with atelectasis. 1.6 cm pulmonary nodule in the left lower lobe. Mild COPD. He is maintaining O2 saturations in the 90s on 4 L/m per nasal cannula. Normal saline at KVO. Blood culture reveals no growth. Sputum culture revealed no growth. ProBNP 1610. Glucose 118. He is continued on DuoNeb inhalations, Symbicort, IV Solu-Medrol. Heparin for DVT prophylaxis. Antibiotics in the form of Zosyn. Progress note dated 12/28/2022. The patient is seen today in room 531, on the general medical floor. He sitting up in bed. He continues on oxygen at 5 L. He is getting saline at 20 mL an hour. According to the last note from oncology, the patient's liver lesions, may be too small for interventional radiology to do a biopsy. The patient will likely need an outpatient PET scan, to determine if there is at target, that can be sampled. Currently, his only complaint is abdominal distention and some mild abdominal pain. No new labs as yet. Progress note dated 12/29/2022. The patient is seen today in room 376. The patient was transferred down to the third floor yesterday, because of worsening respiratory status, and placed on AIRVO. His current settings include 60 L/m with an FiO2 of 88%. He's not receiving any IV fluids. He continues on Zosyn. We did an ultrasound of the posterior chest, to see if there is any fluid in either pleural space, to attempt a thoracentesis. Unfortunately, there is no fluid on either side. White count is 9.94, hemoglobin 13.1, hematocrit 40.2, and platelet count 177,000. AST is 376. ALT is 135, and alkaline phosphatase is 284. N-terminal proBNP is 870. Phosphorus is 2.2. Glucose is 159. Chest x-ray shows patchy infiltrates, and some improvement in the overall pattern. Ultrasound did not reveal any significant fluid on either side. Progress note dated 12/30/2022. The patient is seen today in room 376. His is in the room as well. The patient continues on AIRVO, with settings of 54 L/m and an FiO2 of 92%. The patient is not receiving any IV fluids. The patient is scheduled to have an MRI of his liver, so that hopefully, a target lesion can be identified, for possible biopsy, by interventional radiology. No new labs today other than a glucose of 168. Progress note dated 12/31/2022. The patient is seen today in room 376. He is currently on nasal cannula, high flow, and 13 L/m. Saturations are 93-94%. The patient had a CT angiogram back on December 26, that was negative for pulmonary embolism. The patient will be started on Lasix 40 mg IV push, twice a day, and we will assess her chest x-ray tomorrow, as well as blood work. The patient states that since receiving a dose of Lasix is morning, his breathing is better. Labs today include a glucose of 124. Culture data is negative. Progress note dated 01/01/2023. The patient is again seen today in room 376. Currently, the patient is on 15 L high flow oxygen, by nasal cannula, with saturations of 90%. The patient is on maximal medical therapy for his lungs including albuterol, ipratropium bromide, Pulmicort, formoterol, and corticosteroids. The patient apparently could not to lerate lying down for an MRI of the liver. The only lab today is a glucose of 144. Chest x-ray shows a right midlung patchy infiltrate, among other things. Progress note dated 01/02/2023. The patient is again seen today in room 376. He continues on high flow nasal cannula 15 L/m. Saturations are in the high 80s, and low 90s. The patient is not receiving any IV fluids. He continues on breathing treatments, Pulmicort, formoterol, and corticosteroids. Labs today include a white count of 8.9, hemoglobin 11.4, hematocrit 34.7, and a platelet count of 73,000. Sodium 138, potassium 4.1, chlorides 107, CO2 26, BUN 39, and creatinine 0.98. AST is 309. ALT is 124. Objective - Vital Signs Vital signs: Vital Signs Temp 98.3 F 01/02/23 10:05 Pulse 74 01/02/23 10:05 Resp 22 01/02/23 10:05 BP 112/71 01/02/23 10:05 Pulse Ox 90 L 01/02/23 10:05 FiO2 82 12/30/22 15:53 Intake & Output 07/01/02/23 01/02/23 18:59 06:59 18:59 Intake Total 836 600 360 Output Total 1300 1000 Balance -464 -400 360 Weight 100 kg Intake: Intake, IV Titration 200 Amount Piperacillin-Tazobactam 3 200 .375 gm In Sodium Chloride 0.9% 100 ml @ 25 mls/hr IVPB Q8H [facility] Rx#: [id number] Oral 836 400 360 Output: Urine 1300 1000 Other: Voiding Method Indwelling Catheter Indwelling Catheter Indwelling Catheter - Exam No acute distress, oriented 3. Currently on high flow nasal cannula. No respiratory distress. No conversational dyspnea, and no use of accessory muscl es. HEENT examination is grossly unremarkable. Neck supple. Full range of motion. No adenopathy thyromegaly or neck vein distention. Cardiovascular examination reveals regular rhythm rate. S1-S2 normal. No S3 or S4. No discernible murmur noted. Heart rate 74 bpm. Lungs reveal scattered rhonchi. No wheezes or crackles. Breath sounds equal bilaterally. The patient does not take deep breaths. Saturations are 88-91%. Abdomen distended and mildly tender. Bowel sounds are noted. Extremities are intact. No cyanosis clubbing or edema. Skin reveals multiple areas of ecchymoses. Neurologic examination is brief but nonfocal. - Labs CBC & Chem 7: 01/02/23 07:02 01/02/23 07:02 Labs: Abnormal Lab Results - Last 24 Hours (Table) 01/01/23 01/01/23 01/01/23 Range/Units 11:48 12:04 16:36 RBC (4.30-5.90) m/uL Hgb (13.0-17.5) gm/dL Hct (39.0-53.0) % Plt Count (150-450) k/uL Lymphocytes # (1.0-4.8) k/uL BUN (9-20) mg/dL Glucose (74-99) mg/dL POC Glucose (mg/dL) 149 H 139 H (70-110) mg/dL Calcium (8.4-10.2) mg/dL AST (17-59) U/L ALT (4-49) U/L Alkaline Phosphatase (38-126) U/L Total Protein (6.3-8.2) g/dL Albumin (3.5-5.0) g/dL Procalcitonin 0.19 H (0.02-0.09) ng/mL 01/01/23 01/02/23 01/02/23 Range/Units 20:10 06:10 07:02 RBC 3.53 L (4.30-5.90) m/uL Hgb 11.4 L (13.0-17.5) gm/dL Hct 34.7 L (39.0-53.0) % Plt Count 73 L (150-450) k/uL Lymphocytes # 0.7 L (1.0-4.8) k/uL BUN (9-20) mg/dL Glucose (74-99) mg/dL POC Glucose (mg/dL) 222 H 136 H (70-110) mg/dL Calcium (8.4-10.2) mg/dL AST (17-59) U/L ALT (4-49) U/L Alkaline Phosphatase (38-126) U/L Total Protein (6.3-8.2) g/dL Albumin (3.5-5.0) g/dL Procalcitonin (0.02-0.09) ng/mL 01/02/23 Range/Units 07:02 RBC (4.30-5.90) m/uL Hgb (13.0-17.5) gm/dL Hct (39.0-53.0) % Plt Count (150-450) k/uL Lymphocytes # (1.0-4.8) k/uL BUN 39 H (9-20) mg/dL Glucose 131 H (74-99) mg/dL POC Glucose (mg/dL) (70-110) mg/dL Calcium 6.9 L (8.4-10.2) mg/dL AST 309 H (17-59) U/L ALT 124 H (4-49) U/L Alkaline Phosphatase 303 H (38-126) U/L Total Protein 6.2 L (6.3-8.2) g/dL Albumin 3.2 L (3.5-5.0) g/dL Procalcitonin (0.02-0.09) ng/mL Assessment and Plan Assessment: Diffuse skeletal pain involving the chest wall and back. Bone scan did reveal marked heterogenous uptake involving the bilateral rib cage, vertebral column, pelvis and calvarium appears to correspond to abnormal marrow appearance of the visualized osseous structures on CAT scan. Suspect malignancy. Carcinoembryonic antigen 4441. CA 199 antigen 69.5. Colonoscopy from 12/23/2022 revealed a 5 mm cecal and a 1 cm ascending colon polyps status post biopsies. Pathology pending. No masses identified. He will need a liver biopsy. Xarelto, Aspirin and Plavix remain on hold. Computed tomography scan of the abdomen revealed innumerable small nodules throughout the liver. Heterogenous appearance to the osseous structures. Given the liver findings, correlate for potential infiltrative disease or diffuse osseous metastatic disease. CT angiogram from 12/26/2022 ruled out pulmonary embolism. Hypercalcemia. Received Zometa. Calcium level improved. Acute hypoxemic respiratory failure secondary to an acute exacerbation of chronic obstructive pulmonary disease. Left lower lobe pulmonary nodule measuring 1.5 cm, will need an outpatient PET CT and further investigation. Probable metastatic disease to the lung. Coronary artery disease. Vascular disease with a previous fem-pop bypass surgery. Bilateral carotid endarterectomies. Coronary artery disease and coronary stenting. Previous history of CVA. Previous history of DVT of the left lower extremity. Previous history of Covid 19 infection in February 2021. Hypertension. Hyperlipidemia. Abnormal LFTs with cholelithiasis without evidence of cholecystitis. History of nephrolithiasis. Plan: Plan dated 12/28/2022. The patient was seen and evaluated, and examine. He continues on 4 L of oxygen. According to the note from oncology yesterday, apparently interventional radiology is saying that the lesions in the liver may be too small to biopsy. An outpatient PET scan is being recommended. The patient continues on Zosyn, bronchodilators, and Solu-Medrol. The patient received 1 dose of Lasix yesterday. No additional recommendations are made. Prognosis is certainly guarded. We will continue to follow make recommendations along the way. Plan dated 12/29/2022. The patient's on all appropriate medications. We spent a great deal of time in the room today, telling the patient are plans, as well as talking to the patient's . We told the patient, and his , that from the pulmonary standpoint, there is nothing to sample. There is not enough fluid in the pleural spaces to attempt thoracentesis. It would only lead to a complication such as pneumothorax. The patient should have an outpatient PET scan, which mi ght provide a target for biopsy. Hopefully, his respiratory status is improved. Additional recommendations and suggestions are forthcoming. Everything was explained in detail to the patient, and to the patient's . Plan dated 12/30/2022. The patient continues on AIRVO. The patient is not receiving any IV fluids. Clinically, his breathing is improved, according to him. The patient is dre eduled to have an MRI of his liver, late, this will identify a target lesion, that interventional radiology can biopsy. Additional recommendations and suggestions are forthcoming. Overall prognosis remains very guarded. The was in the room along with the patient. No additional recommendations are made. Plan dated 12/31/2022. The patient is given Lasix, 40 mg IV push, twice a day. He seems to respond favorably to Lasix. Also, we asked for a chest x-ray, and some lab work in the morning. Labs, x-rays, and medications are reviewed. The patient was to have a MRI of the liver, for possible biopsy. Additional recommendations and suggestions are forthcoming. Prognosis is certainly guarded. Malignancy is suspected strongly. Plan dated 01/01/2023. I spent a great deal time talking to the patient and the patient's . The patient's on appropriate medications for a COPD exacerbation. Labs, x-rays, medications are reviewed. The patient apparently was not stable enough to get an MRI of the liver. He apparently could not lay flat, for this procedure. He is obviously not ready for discharge, and for the potential of an outpatient PET scan. The patient's overall prognosis remains very guarded. We will continue to follow. No additional recommendations are made at this time. Plan dated 01/02/2023. The patient is about the same today. He continues on 15 L high flow nasal O2. His saturations have been between 80% and 91%. Clinically he feels about the same. The patient was to be discharged for an outpatient PET scan. Obviously, he cannot go home on 15 L. In addition, the patient could not lie flat for an MRI of the liver, and hence, no biopsy was done. Prognosis is guarded. Labs are reviewed. All of this was explained to the patient and the patient's . Time with Patient: Less than 30
[2023-01-02 11:45] LABS: Glucose,Whole Blood 196 mg/dL (70-110)
--- NOTE | 2023-01-02 12:38 | US ---
EXAMINATION TYPE: US abdomen limited DATE OF EXAM: 01/02/2023 Exam done portable COMPARISON: NONE CLINICAL INDICATION: Male, 67 years old with history of evaluate for ascites; Technique: Limited imaging of the abdomen for ascites. Findings No ascites seen IMPRESSION: No free fluid in the abdomen.
--- NOTE | 2023-01-02 16:24 | XR ---
EXAMINATION TYPE: XR abdomen 2V DATE OF EXAM: 01/02/2023 COMPARISON: CT abdomen pelvis 12/24/2022 HISTORY: Abdominal distention TECHNIQUE: Supine view of the abdomen was obtained with 3 radiographs. FINDINGS: Small bowel demonstrates no evidence for dilatation or air fluid levels. Gas and fecal material is seen in the colon. Moderate amount of stool is present within the right col on. Gas is distention of the transverse colon. No convincing evidence for pneumoperitoneum. No unusual calcifications. The lung bases are clear. Cardiomegaly. The osseous structures are intact. Osteoarthritic changes of the left hip. Total arthroplasty changes of the right hip. Degenerative changes of the lumbar spine. IMPRESSION: Overall nonobstructive bowel gas pattern with moderate amount of stool present within the right colon and gaseous distention of the transverse colon.
[2023-01-02 16:59] LABS: Glucose,Whole Blood 151 mg/dL (70-110)
[2023-01-02 20:07] LABS: Glucose,Whole Blood 185 mg/dL (70-110)
[2023-01-02] MEDS: amLODIPine 10 MG TAB PO SCH (21:43)
[2023-01-02] MEDS: ATORVASTATIN 80 MG TAB PO SCH (21:44)
--- NOTE | 2023-01-02 23:30 | PN ---
PROGRESS NOTE DATE OF SERVICE: 01/02/2023 SUBJECTIVE: This is a 67-year-old gentleman admitted with multiple medical problems including acute hypoxic respiratory failure, COPD acute exacerbation, also had progressive abdominal distension which is increasing in intensity clinically and the patient was evaluated and the ultrasound showed no free fluid. PAST MEDICAL HISTORY: Reviewed. REVIEW OF SYSTEMS: A 14-point review is negative except as mentioned earlier. CURRENT MEDICATIONS: Reviewed. PHYSICAL EXAMINATION: VITAL SIGNS: Pulse is 79, blood pressure , respirations 20. HEENT: Conjunctivae normal. CARDIOVASCULAR: S1, S2. RESPIRATIONS: Bilateral scattered rhonchi. ABDOMEN: Obese LABORATORY DATA: Labs are evaluated. LFTs are noted. ASSESSMENT: 1. Acute hypoxic respiratory failure secondary to chronic obstructive pulmonary disease acute exacerbation with possible bibasilar pneumonia on admission. 2. Hepatic lesion, possibly liver cirrhosis, rule out metastatic malignancy. 3. Abdominal distention with no free fluid. 4. Coronary artery disease history. 5. History of cerebrovascular accident. 6. Multiple medical issues. RECOMMENDATIONS: Recommend to continue current medications, continue symptomatic treatment. We will continue to administer intravenous steroids and bronchodilators. I would also recommend abdominal flat plate to rule out the possibility of any bowel ileus. Further recommendations to follow. See orders for further details. MMODL / IJN: [id number] /
[2023-01-03] MEDS: PIPERACILLIN-TAZOBACTAM 3.375 GM in SODIUM CHLORIDE 0.9% 100 ML IVPB SCH ×3 (02:00→17:12)
[2023-01-03] MEDS: methylPREDNISolone SOD SUCCI 125 MG/2 ML VIAL IV SCH ×3 (05:40→17:12)
[2023-01-03 06:06] LABS: Glucose,Whole Blood 161 mg/dL (70-110)
[2023-01-03] MEDS: INSULIN ASPART (NovoLOG) 100 UNIT/ML VIAL SQ SCH ×4 (06:29→20:42)
[2023-01-03] MEDS: BUDESONIDE 1 MG/2 ML NEBU INHALATION SCH ×2 (08:25→21:23)
[2023-01-03] MEDS: IPRATROPIUM-ALBUTEROL 3 ML NEB INHALATION SCH ×4 (08:25→21:23)
[2023-01-03] MEDS: FORMOTEROL FUMARATE 20 MCG/2 ML NEBU INHALATION SCH ×2 (08:25→21:23)
[2023-01-03] MEDS: MORPHINE SULFATE 4 MG/ML SYRINGE IVP PRN ×2 (09:03→14:50)
[2023-01-03] MEDS: FUROSEMIDE 10 MG/ML 4 ML VIAL IV SCH ×2 (09:04→20:41)
[2023-01-03] MEDS: HEPARIN SODIUM,PORCINE/PF 5,000 UNIT/0.5 ML SYRINGE SQ SCH ×2 (09:04→17:15)
[2023-01-03] MEDS: PANTOPRAZOLE 40 MG/10 ML VIAL IV SCH ×2 (09:04→20:41)
[2023-01-03] MEDS: THIAMINE 100 MG TAB PO SCH (09:05)
[2023-01-03] MEDS: METOPROLOL TARTRATE 25 MG TAB PO SCH ×2 (09:05→20:41)
[2023-01-03] MEDS: EZETIMIBE 10 MG TAB PO SCH (09:05)
[2023-01-03] MEDS: DOCUSATE 100 MG CAP PO SCH ×2 (09:05→20:40)
[2023-01-03] MEDS: LOSARTAN 50 MG TAB PO SCH (09:05)
[2023-01-03] MEDS: GABAPENTIN 300 MG CAP PO SCH ×2 (09:05→20:41)
[2023-01-03] MEDS: BACLOFEN 10 MG TAB PO SCH ×2 (09:06→20:41)
[2023-01-03] MEDS: SENNOSIDES-DOCUSATE SODIUM 1 EACH TAB PO SCH ×2 (09:06→20:40)
[2023-01-03 09:50] LABS: Basophils % (A) 0 %; Eosinophils # (A) 0.1 k/uL (0-0.7); Eosinophils % (A) 1 %; HCT 30.7 % (39.0-53.0); HGB 10.2 gm/dL (13.0-17.5); Lymphocytes # (A) 0.6 k/uL (1.0-4.8); Lymphocytes % (A) 8 %; MCHC 33.1 g/dL (31.0-37.0); MCV 96.6 fL (80.0-100.0); Mean Platelet Volume 8.5; Monocytes # (A) 0.4 k/uL (0-1.0); Monocytes % (A) 5 %; Neutrophils # (A) 6.1 k/uL (1.3-7.7); Neutrophils % (A) 85 %; RBC 3.18 m/uL (4.30-5.90); RDW 14.6 % (11.5-15.5); WBC 7.2 k/uL (3.8-10.6)
[2023-01-03 10:08] LABS: Platelet Count 72 k/uL (150-450)
[2023-01-03 10:39] LABS: ALT 110 U/L (4-49); AST 298 U/L (17-59); African American GFR (CKD) >90 (>60 ml/min/1.73 sqM); Albumin 3.2 g/dL (3.5-5.0); Alkaline Phosphatase 296 U/L (38-126); Anion Gap 8 mmol/L; Blood Urea Nitrogen 32 mg/dL (9-20); Calcium 6.7 mg/dL (8.4-10.2); Carbon Dioxide 27 mmol/L (22-30); Chloride 104 mmol/L (98-107); Glucose 125 mg/dL (74-99); Non-African American GFR(CKD) >90 (>60 ml/min/1.73 sqM); Potassium 3.8 mmol/L (3.5-5.1); Sodium 139 mmol/L (137-145); Total Bilirubin 0.8 mg/dL (0.2-1.3); Total Protein 6.1 g/dL (6.3-8.2)
[2023-01-03 11:40] LABS: Glucose,Whole Blood 129 mg/dL (70-110)
[2023-01-03] MEDS: DULoxetine HCL 30 MG CAPSULE.DR PO SCH ×2 (11:45→20:41)
--- NOTE | 2023-01-03 12:10 | P.PN ---
Subjective 67-year-old male was admitted to the hospital with complaints of abdominal pain and found to have cholelithiasis and cholecystitis. Patient also has hypercalcemia. 12/20/2022 Patient is currently lying in the bed. Awake alert and oriented x3. Anxious. Complains of both right upper and and left upper quadrant abdominal pain below the rib cage. Also complaining of back pain. No complaints of nausea vomiting. Patient underwent bone scan today. Due to hypercalcemia. Oncology and nephrology is on board. Laboratory data showed WBC 10.8 hemoglobin 15.1 and platelets 132 BUN 31.4 and creatinine 1.2 and bicarb level is 20.4 anion gap 14.6. Calcium level 12.6. Tumor markers were ordered. 12/21/2022 Patient is currently lying in bed. Awake alert and oriented x3. On oxygen at 4 L via nasal cannula. Still complains of pain below the rib cage. Bone scan was done yesterday showed a markedly heterogenous uptake involving the bilateral rib cage, vertebral column pelvis and calvarium appears to correspond to abnormal marrow appearance of the visualized osseous structures of the CAT scan. Suspect occult malignancy. Otherwise patient is being continued on IV Solu-Medrol DuoNebs and antibiotics and home Zosyn. Also on anticoagulation with Xarelto. Laboratory data showed WBC 8.2 hemoglobin 14.1 and platelets 119 Sodium 138 potassium 4.6 chloride 105 bicarb is 28 BUN 24 and creatinine 1.07 AST 110 ALT 90 alk phos 160. 12/22/2022 Patient is currently lying in bed. Complains of pain. Currently on [place] and morphine sustained-release was ordered. IR guided biopsy of the liver lesion could not be done due to patient being on anticoagulation. Oncology recommends endoscopic evaluation at this time. Otherwise CT of the abdomen pelvis done yesterday showed extensive 1 to 2 cm nodules diffusely throughout the left and right lobes of the liver suspicious for metastatic disease. CEA level is elevated. Laboratory data reviewed. 2022 Patient was admitted to the hospital due to bilateral rib cage pain and hypercalcemia and work-up in process for malignancy. Currently lying in the bed. Awake alert and oriented. No complaints of fever or chills. Currently on 4 L via nasal cannula. Continued on prednisone 30 mg daily. Also, DuoNebs and anticoagulation. Patient is scheduled for EGD and colonoscopy today. Otherwise cultures showed no growth. Patient is off antibiotics currently. Laboratory data showed WBC 8.1 hemoglobin 13.6 and platelets 124 BUN 19.3 and creatinine 0.7. Calcium level came down to 8.5. 12/24/2022 Patient is today had EGD and colonoscopy showing small hiatal hernia and cecal polyp which was removed. No other significant abnormality. Patient had repeat CT of the abdomen and pelvis today showing multiple nodules of the liver suspicious for liver cirrhosis versus metastatic disease area Heterogenous appearance of the osseous structures suspicious for metastatic disease. Moderate to severe stenosis of bilateral iliac arteries and right renal artery. As well as SMA. Cholelithiasis and diverticulitis. Prostate gland calcification 1.1 cm. 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 There was possible to discharge and the patient and do the procedure as an outpatient and follow-up with oncologist as an outpatient on , however patient still complaining of from severe bilateral rib cage pain and tenderness related most likely due to metastatic disease. Upon consult is obtained. Also patient most likely will have biopsy next week. Discussed with staff 12/25/2022 Patient today looks less lethargic and sitting up in chair, however he is more short of breath and Solu-Medrol is adequate. Repeat chest x-ray showed possible right lower pneumonia and Zosyn is added. proCalcitonin is pending. Also liver biopsy is pending 12/26/2022 pt is still lethargic but alert and awake , lying in bed with generalized weakness, he say his chest and rib cage pain is there but feels tolerable he remains on zosyn and solumedrol 40 mg pending [facility]: neg for PE 12/27/2022 pt clinically looks similar to the last few day, somewhat lewthargic and week , slighly tachypneic due to rib cage pain , tumour mass, and possible fluid overload. he is on 5 L of O2 via nasal cannula he supposed to get liver biopsy but per oncology input this may not be feasable as per notes from the IR team . other options are PET scan which is typically do ne as outpatient usually, or diagnostic thoracocentasis, we will defer to oncology team the decision on how to obtain the tissue diagnosis pt got one dose of lasix today which looks it helped him a little bit he is on zosyn and solumedrol 40 mg at bed side and all their questions were answered 12/28/2022 No significant change, still tired and weak . Other that he is hemodynamically stable. No new complaint. Patient remains on Zosyn. IV Solu-Medrol switched to prednisone 20 mg. That looks like patient cannot get liver biopsy per IR team. We will discuss with hematology/oncology team further recommendation and the next step in the diagnosis. 12/29/2022 Patient awake alert does not look in much distress, maybe mild oral no respiratory distress, somewhat tachypneic. Last that his oxygen requirement went up and currently he is on high flow nasal cannula with a flow rate of 55 L/m and FiO2 of 100%. Repeated chest x-ray showing no much change from previous still has patchy infiltrates on both sides, transected looks even slightly better on radiology notes. Steroids has been bumped up to 60 mL again this morning. Also she remains on Zosyn. Also patient has some abdominal distention but he tolerates that well, no abdominal pain and tenderness or vomiting. He is passing flatus but he complains from constipation over the last few days. Patient is not to take narcotic pain medication and he is on senna only therefore we added MiraLAX when necessary and Colace with a close monitoring. Oncology team is working on obtaining a biopsy diagnosis for the patient prior to discharge or plan for that. Patient may benefit from PET scan inpatient per oncology team. Discussed with staff Resume of the care of the patient on 01/03/2023 Patient still hypoxic but improving, and oxygen requirements down to 15 L/m. He is lying in bed with no significant respiratory distress, he reports improved in breathing. No cough, no significant chest pain He has right-sided chest pain related to metastatic disease since admission and directed as it/stent and it looks controlled with fentanyl and when necessary oxycodone. Patient reports having adequate bowel movements and is agreeable with the stool softeners. He remains on Zosyn. Also he is on high-dose IV Solu-Medrol 60 mg -Lasix 40 mg twice daily added yesterday Liver biopsy could not be obtained because of the small lesion per IR, hematology/oncology team saw the case Objective - Vital Signs Vital signs: Vital Signs Temp 97.2 F L 01/03/23 11:51 Pulse 78 01/03/23 11:51 Resp 20 01/03/23 11:51 BP 106/51 01/03/23 11:51 Pulse Ox 91 L 01/03/23 11:51 FiO2 82 12/30/22 15:53 Intake & Output 01/02/23 01/03/23 01/03/23 18:59 06:59 18:59 Intake Total 1416 400 118 Output Total 1050 Balance 366 400 118 Weight 99.5 kg Intake: Intake, IV Titration 100 100 Amount Piperacillin-Tazobactam 3 100 100 .375 gm In Sodium Chloride 0.9% 100 ml @ 25 mls/hr IVPB Q8H ON LICENSE OF [facility] Rx#: [id number] Oral 1316 300 118 Output: Urine 1050 Other: Voiding Method Indwelling Catheter Indwelling Catheter # Bowel Movements 1 1 - Exam -GENERAL: The patient is alert and oriented x3, less lethargic not in any acute distress. Well developed, well nourished. HEENT: Pupils are round and equally reacting to light. EOMI. No scleral icterus. No conjunctival pallor. Normocephalic, atraumatic. No pharyngeal erythema. No th yromegaly. CARDIOVASCULAR: S1 and S2 present. No murmurs, rubs, or gallops. -PULMONARY: Chest is clear to auscultation, no wheezing , no crackles. Bilateral rib care teaching tenderness ABDOMEN: Soft, nontender, nondistended, normoactive bowel sounds. No palpable organomegaly. MUSCULOSKELETAL: No joint swelling or deformity. EXTREMITIES: No cyanosis, clubbing, or pedal edema. NEUROLOGICAL: Gross neurological examination did not reveal any focal deficits. SKIN: No rashes. no petechiae. - Labs CBC & Chem 7: 01/03/23 08:56 01/03/23 08:56 Labs: Abnormal Lab Results - Last 24 Hours (Table) 01/02/23 01/02/23 01/03/23 Range/Units 16:36 20:05 06:04 RBC (4.30-5.90) m/uL Hgb (13.0-17.5) gm/dL Hct (39.0-53.0) % Plt Count (150-450) k/uL Lymphocytes # (1.0-4.8) k/uL BUN (9-20) mg/dL Glucose (74-99) mg/dL POC Glucose (mg/dL) 151 H 185 H 161 H (70-110) mg/dL Calcium (8.4-10.2) mg/dL AST (17-59) U/L ALT (4-49) U/L Alkaline Phosphatase (38-126) U/L Total Protein (6.3-8.2) g/dL Albumin (3.5-5.0) g/dL 01/03/23 01/03/23 01/03/23 Range/Units 08:56 08:56 11:37 RBC 3.18 L (4.30-5.90) m/uL Hgb 10.2 L (13.0-17.5) gm/dL Hct 30.7 L (39.0-53.0) % Plt Count 72 L (150-450) k/uL Lymphocytes # 0.6 L (1.0-4.8) k/uL BUN 32 H (9-20) mg/dL Glucose 125 H (74-99) mg/dL POC Glucose (mg/dL) 129 H (70-110) mg/dL Calcium 6.7 L (8.4-10.2) mg/dL AST 298 H (17-59) U/L ALT 110 H (4-49) U/L Alkaline Phosphatase 296 H (38-126) U/L Total Protein 6.1 L (6.3-8.2) g/dL Albumin 3.2 L (3.5-5.0) g/dL Assessment and Plan Assessment: Liver cirrhosis, cannot rule out malignancy given multiple nodules and will require liver biopsy Bilateral rib cage pain and tenderness related to possible metastatic osseous disease. Hypercalcemia and pain below the rib cage and also back pain. Malignancy work- up in process. Bone scan showed a markedly heterogenous uptake involving the bilateral rib cage, vertebral column pelvis and calvarium appears to correspond to abnormal marrow appearance of the visualized osseous structures of the CAT scan. Suspect occult malignancy. COPD with no exacerbation Left lower lobe pulmonary nodule measuring 1.5 cm. Outpatient PET scan recommended by pulmonary. Coronary artery disease with prior history of stent placement History of CVA Peripheral vascular disease with previous history of femoropopliteal bypass surgery. Bilateral carotid endarterectomies History of DVT left lower extremity History of CVA/TIA Hypertension Hyperlipidemia Elevated liver enzymes and cholelithiasis without evidence of cholecystitis. History of nephrolithiasis Plan: Consult pain management is appreciated and patient currently is on fentanyl and oxycodone when necessary. Started on Zosyn and IV prednisone Several consultants on the case including hematology/oncology, pulmonary service Plan for patient cannot get liver biopsy. consultants on the case including hematology/oncology, pulmonary service and GI service. Labs and medication were reviewed.. Continue same treatment. Continue with symptomatic treatment. Resume home medication. Monitor labs and vitals. DVT and GI prophylaxis. Further recommendations as per clinical course of the patient DVT prophylaxis: Subcutaneous heparin GI Prophylaxis: Ppi PT/OT: Pending Prognosis is guarded
--- NOTE | 2023-01-03 13:44 | XR ---
EXAMINATION TYPE: XR chest 1V DATE OF EXAM: 01/03/2023 COMPARISON: 01/01/2023 HISTORY: Hypoxia TECHNIQUE: Single frontal view of the chest is obtained. FINDINGS: Limited inspiration with bilateral consolidation and small effusion. Air beneath the hemid iaphragm likely seen within the bowel. Chronic rib deformities are seen. Coarsened central interstiti um with improving right upper lobe infiltrate. No pneumothorax. There is arthropathy of the shoulders . Atherosclerotic change aorta. IMPRESSION: 1. Improving right upper lobe infiltrate with bilateral lower lobe infiltrate and small effusion. The re is limited inspiration with low lung volumes.
--- NOTE | 2023-01-03 14:05 | P.PN ---
Subjective Progress Note Date: 01/03/23 Principal diagnosis: abdominal pain At today's visit patient is resting comfortably in bed. at bedside. Patient reports pain is improved today. But reports persisting SOB. Pt is on 15L high flow oxygen. Reports persisting cough. SpO2 94%. Patient was unable to tolerate liver MRI as he could not lay flat Objective - Vital Signs Vital signs: Vital Signs Temp 97.2 F L 01/03/23 11:51 Pulse 78 01/03/23 11:51 Resp 20 01/03/23 11:51 BP 106/51 01/03/23 11:51 Pulse Ox 91 L 01/03/23 11:51 FiO2 82 12/30/22 15:53 Intake & Output 01/02/23 01/03/23 01/03/23 18:59 06:59 18:59 Intake Total 1416 400 118 Output Total 1050 Balance 366 400 118 Weight 99.5 kg Intake: Intake, IV Titration 100 100 Amount Piperacillin-Tazobactam 3 100 100 .375 gm In Sodium Chloride 0.9% 100 ml @ 25 mls/hr IVPB Q8H [facility] Rx#: [id number] Oral 1316 300 118 Output: Urine 1050 Other: Voiding Method Indwelling Catheter Indwelling Catheter Indwelling Catheter # Bowel Movements 1 1 - Constitutional General appearance: Present: no acute distress, obese - EENT Eyes: Present: anicteric sclerae, EOMI ENT: Present: hearing grossly normal - Respiratory Details: breathing labored - Cardiovascular Details: skin warm and dry - Gastrointestinal General gastrointestinal: Present: soft. Absent: tenderness - Integumentary Integumentary: Absent: cyanotic, jaundiced - Musculoskeletal Musculoskeletal: Present: generalized weakness - Psychiatric Psychiatric: Present: A&O x's 3, appropriate affect, intact judgment & insight - Labs CBC & Chem 7: 01/03/23 08:56 01/03/23 08:56 Labs: Abnormal Lab Results - Last 24 Hours (Table) 01/02/23 01/02/23 01/03/23 Range/Units 16:36 20:05 06:04 RBC (4.30-5.90) m/uL Hgb (13.0-17.5) gm/dL Hct (39.0-53.0) % Plt Count (150-450) k/uL Lymphocytes # (1.0-4.8) k/uL BUN (9-20) mg/dL Glucose (74-99) mg/dL POC Glucose (mg/dL) 151 H 185 H 161 H (70-110) mg/dL Calcium (8.4-10.2) mg/dL AST (17-59) U/L ALT (4-49) U/L Alkaline Phosphatase (38-126) U/L Total Protein (6.3-8.2) g/dL Albumin (3.5-5.0) g/dL 01/03/23 01/03/23 01/03/23 Range/Units 08:56 08:56 11:37 RBC 3.18 L (4.30-5.90) m/uL Hgb 10.2 L (13.0-17.5) gm/dL Hct 30.7 L (39.0-53.0) % Plt Count 72 L (150-450) k/uL Lymphocytes # 0.6 L (1.0-4.8) k/uL BUN 32 H (9-20) mg/dL Glucose 125 H (74-99) mg/dL POC Glucose (mg/dL) 129 H (70-110) mg/dL Calcium 6.7 L (8.4-10.2) mg/dL AST 298 H (17-59) U/L ALT 110 H (4-49) U/L Alkaline Phosphatase 296 H (38-126) U/L Total Protein 6.1 L (6.3-8.2) g/dL Albumin 3.2 L (3.5-5.0) g/dL - Imaging and Cardiology Chest x-ray: report reviewed Abdominal x-ray: report reviewed Assessment and Plan (1) Hypercalcemia Current Visit: Yes Status: Resolved Priority: High Code(s): E83.52 - HYPERCALCEMIA SNOMED Code(s): 14090595 (2) Liver lesion Current Visit: Yes Status: Acute Priority: High Code(s): K76.9 - LIVER DISEASE, UNSPECIFIED SNOMED Code(s): 534599308 Plan: Liver lesion -Outpatient plans for biopsy on 01/06. Bx will happen only if the Radiologist coming on feels that the liver lesions can be biopsied. Have to await their review of the case and recommendations. MRI of the liver ordered for a closer look-any larger lesion that could be a better target. Unfortunately patient was unable to tolerate MRI. Will plan a PET scan upon discharge, however, discussed with patient that his underlying COPD and pneumonia have to be adequately controlled prior to proceeding with PET CT and/or biopsy because in his current state he would not be able to tolerate them. Patient and verbalized understanding. -CEA elevated at 4441 -Patient do understand that there are concerns for malignancy, just pending a target for biopsy once stable -EGD and colonoscopy completed, cecal polyp and ascending colon polyp. Pathology reporting tubular adenoma Abdominal pain -Pain mgmt consulted and managing -US abdomen on 01/02/23 revealed no ascites/free fluid in the abdomen Shortness of breath -Breathing has been variable throughout admission. Currently on 15L high flow O2. SpO2 94% -US chest, no significant pleural fluid to consider thoracentesis -CXR revealed improving right upper lobe infiltrate with bilateral lower lobe infiltrate and small effusion. There is limited inspiration with low lung volumes. Continues on zosyn -Pulmonary following Hypercalcemia-resolved -Treated with calcitonin and zometa. -PTH significantly low, 5.4. PTHrP is still pending -Concern is that this is hypercalcemia of malignancy.
--- NOTE | 2023-01-03 15:21 | P.PN ---
Subjective Progress Note Date: 01/03/23 67-year-old male patient was transferred to us from [facility] for diffuse pain. The pain is mainly across his chest and upper abdomen and across the rib cage addition to chronic back pain. Is known to have chronic dyspnea and the patient is noted COPD and a left lung pulmonary nodule that has been followed up on outpatient basis. Initially went to [facility] and his calcium level was noted to be elevated. Based on his ongoing symptoms, he was referred to us. His current calcium level is at 13. He did not have any previous issues with hypercalcemia. Is known to have COPD, pulmonary nodule, coronary artery disease and extensive peripheral vascular disease and the sruthi ent has undergone previous vascular bypass surgery and stenting to the lower extremities. He is also known to have previous history of DVT. Maintain on long-term anticoagulants. At the same time, the patient has hypertension, hyperlipidemia, obesity, chronic back pain and a recent MRI from August 2022 showed wedging of the L2 spine in the order of 15% without any acute fractures. There is also multilevel spondylitic changes and mildly prominent narrowing due to facet arthropathy and disc space narrowing at the level of L4-L5 and old compression fracture the level of L2. Mild edema in the anterior L3 vertebral and posterior L5 vertebral and there is no evidence of any significant lumbar s tenosis. The computed tomography scan of the abdomen and pelvis that was done in 09/22/2022 showed moderate to severe narrowing throughout the bilateral external iliac arteries and a stent in the superficial femoral artery was patent on the left. There was cholelithiasis and moderate atherosclerotic changes throughout the abdominal aorta and colonic diverticulosis. There are atelectatic changes in the right posterior base. On today's evaluation 01/03/2023, the patient remains hypoxic and the patient remains on 15 L of oxygen by nasal cannula high flow to maintain a saturation above 90%. He is still being investigated for an underlying malignancy as the patient has an elevated CEA level and he presented to us with hypercalcemia. The patient was treated for hypercalcemia and he was given a combination of calcitonin and Zometa. His PTH level is low and PTH related peptide still pending. He also has a liver lesion and he was supposed to undergo an MRI of his liver for better characterization of the liver mass and the patient was unable to tolerate to lay down flat. He had a chest x-ray was showing the development of a right midlung patchy airspace disease most on the right upper lobe and to also some airspace opacities in the left lung base concerning for pneumonia. Repeat chest x-ray was done and the patient showed improvement in the right upper lobe pulmonary infiltrate with bilateral lower lobe pulmonary infiltrates and small effusion. Lung volumes are essentially small. The patient remains on broad-spectrum antibiotics. The patient is on IV Zosyn for now. He is also having significant amount of edema lower extremity bilaterally and he remains on IV Lasix 40 mg every 12 hours. He remains on bronchodilators. Oncologist on the case. Final diagnoses not been achieved yet. Objective - Vital Signs Vital signs: Vital Signs Temp 97.2 F L 01/03/23 11:51 Pulse 78 01/03/23 11:51 Resp 20 01/03/23 11:51 BP 106/51 01/03/23 11:51 Pulse Ox 91 L 01/03/23 11:51 FiO2 82 12/30/22 15:53 Intake & Output 01/02/23 01/03/23 01/03/23 18:59 06:59 18:59 Intake Total 1416 400 118 Output Total 1050 Balance 366 400 118 Weight 99.5 kg Intake: Intake, IV Titration 100 100 Amount Piperacillin-Tazobactam 3 100 100 .375 gm In Sodium Chloride 0.9% 100 ml @ 25 mls/hr IVPB Q8H [facility] Rx#: [id number] Oral 1316 300 118 Output: Urine 1050 Other: Voiding Method Indwelling Catheter Indwelling Catheter Indwelling Catheter # Bowel Movements 1 1 - Exam Gen. appearance obese, comfortable, no acute distress BMI 30.4 Currently on high flow nasal cannula Head exam was generally normal. There was no scleral icterus or corneal arcus. Mucous membranes were moist. Neck was supple and without jugular venous distension, thyromegaly, or carotid bruits. Carotids were easily palpable bilaterally. There was no adenopathy. Lungs sounds are diminished bilaterally and the patient has scattered expiratory wheeze Cardiac exam revealed the PMI to be normally situated and sized. The rhythm was regular and no extrasystoles were noted during several minutes of auscultation. The first and second heart sounds were normal and physiologic splitting of the second heart sound was noted. There were no murmurs, rubs, clicks, or gallops. Abdominal exam revealed normal bowel sounds. The abdomen was soft, non-tender, and without masses, organomegaly, or appreciable enlargement of the abdominal aorta. Examination of the extremities revealed easily palpable radial, femoral and pedal pulses. There was no cyanosis, clubbing or edema. Examination of the skin revealed no evidence of significant rashes, suspicious appearing nevi or other concerning lesions. Neurologically, the patient is awake and alert and the patient does not have any focal neurological deficit. Cranial nerves are essentially intact. - Labs CBC & Chem 7: 01/03/23 08:56 01/03/23 08:56 Labs: Abnormal Lab Results - Last 24 Hours (Table) 01/02/23 01/02/23 01/03/23 Range/Units 16:36 20:05 06:04 RBC (4.30-5.90) m/uL Hgb (13.0-17.5) gm/dL Hct (39.0-53.0) % Plt Count (150-450) k/uL Lymphocytes # (1.0-4.8) k/uL BUN (9-20) mg/dL Glucose (74-99) mg/dL POC Glucose (mg/dL) 151 H 185 H 161 H (70-110) mg/dL Calcium (8.4-10.2) mg/dL AST (17-59) U/L ALT (4-49) U/L Alkaline Phosphatase (38-126) U/L Total Protein (6.3-8.2) g/dL Albumin (3.5-5.0) g/dL 01/03/23 01/03/23 01/03/23 Range/Units 08:56 08:56 11:37 RBC 3.18 L (4.30-5.90) m/uL Hgb 10.2 L (13.0-17.5) gm/dL Hct 30.7 L (39.0-53.0) % Plt Count 72 L (150-450) k/uL Lymphocytes # 0.6 L (1.0-4.8) k/uL BUN 32 H (9-20) mg/dL Glucose 125 H (74-99) mg/dL POC Glucose (mg/dL) 129 H (70-110) mg/dL Calcium 6.7 L (8.4-10.2) mg/dL AST 298 H (17-59) U/L ALT 110 H (4-49) U/L Alkaline Phosphatase 296 H (38-126) U/L Total Protein 6.1 L (6.3-8.2) g/dL Albumin 3.2 L (3.5-5.0) g/dL Assessment and Plan Plan: Assessment and Plan Assessment: Acute hypoxic respiratory failure with multilobar pneumonia more so on the right upper lobe/right middle lobe area, improving with IV Zosyn. The patient was a high flow oxygen which has been weaned down and currently is on 50 L of O2 nasal cannula to maintain a saturation above 90%. Shortness of breath secondary to above Diffuse skeletal pain involving the chest wall and back. Bone scan did reveal marked heterogenous uptake involving the bilateral rib cage, vertebral column, pelvis and calvarium appears to correspond to abnormal marrow appearance of the visualized osseous structures on CAT scan. Suspect malignancy. Carcinoembryonic antigen 4441. CA 199 antigen 69.5. Colonoscopy from 12/23/2022 revealed a 5 mm cecal and a 1 cm ascending colon polyps status post biopsies. Pathology pend ing. No masses identified. He will need a liver biopsy. Xarelto, Aspirin and Plavix remain on hold. Computed tomography scan of the abdomen revealed innumerable small nodules throughout the liver. Heterogenous appearance to the osseous structures. Given the liver findings, correlate for potential infiltrative disease or diffuse osseous metastatic disease. CT angiogram from 12/26/2022 ruled out pulmonary embolism. Hypercalcemia. Received Zometa. Calcium level improved. Acute hypoxemic respiratory failure secondary to an acute exacerbation of chronic obstructive pulmonary disease. Left lower lobe pulmonary nodule measuring 1.5 cm, will need an outpatient PET CT and further investigation. Probable metastatic disease to the lung. Coronary artery disease. Vascular disease with a previous fem-pop bypass surgery. Bilateral carotid endarterectomies. Coronary artery disease and coronary stenting. Previous history of CVA. Previous history of DVT of the left lower extremity. Previous history of Covid 19 infection in February 2021. Hypertension. Hyperlipidemia. Abnormal LFTs with cholelithiasis without evidence of cholecystitis. History of nephrolithiasis. Plan: Chest x-rays improving Continue IV Zosyn The patient will be gradually weaned off his FiO2 and currently is on 15 L O2 nasal cannula Unable to do the MRI of the liver at this point in time and this can be done at later stage Calcium level is normalized We'll continue with oncology Obviously malignancy workup can be also on an outpatient basis once the patient is more stable and oxygen patient is further improved. She the patient will need a PET/CT We'll continue to follow Time with Patient: Less than 30
[2023-01-03 16:38] LABS: Glucose,Whole Blood 316 mg/dL (70-110)
[2023-01-03 20:16] LABS: Glucose,Whole Blood 131 mg/dL (70-110)
[2023-01-03] MEDS: ATORVASTATIN 80 MG TAB PO SCH (20:40)
[2023-01-03] MEDS: amLODIPine 10 MG TAB PO SCH (20:41)
[2023-01-04] MEDS: IPRATROPIUM-ALBUTEROL 3 ML NEB INHALATION PRN ×2 (00:19→23:12)
[2023-01-04] MEDS: methylPREDNISolone SOD SUCCI 125 MG/2 ML VIAL IV SCH ×4 (00:40→19:17)
[2023-01-04] MEDS: HEPARIN SODIUM,PORCINE/PF 5,000 UNIT/0.5 ML SYRINGE SQ SCH ×2 (00:40→08:36)
[2023-01-04] MEDS: PIPERACILLIN-TAZOBACTAM 3.375 GM in SODIUM CHLORIDE 0.9% 100 ML IVPB SCH ×3 (00:40→19:13)
[2023-01-04 06:04] LABS: Glucose,Whole Blood 141 mg/dL (70-110)
[2023-01-04] MEDS: INSULIN ASPART (NovoLOG) 100 UNIT/ML VIAL SQ SCH ×4 (06:08→20:48)
[2023-01-04] MEDS: FORMOTEROL FUMARATE 20 MCG/2 ML NEBU INHALATION SCH ×2 (07:38→20:16)
[2023-01-04] MEDS: BUDESONIDE 1 MG/2 ML NEBU INHALATION SCH ×2 (07:38→20:17)
[2023-01-04] MEDS: IPRATROPIUM-ALBUTEROL 3 ML NEB INHALATION SCH ×4 (07:39→20:17)
[2023-01-04] MEDS: SENNOSIDES-DOCUSATE SODIUM 1 EACH TAB PO SCH ×2 (08:35→20:47)
[2023-01-04] MEDS: FUROSEMIDE 10 MG/ML 4 ML VIAL IV SCH ×2 (08:35→20:47)
[2023-01-04] MEDS: METOPROLOL TARTRATE 25 MG TAB PO SCH ×2 (08:35→20:47)
[2023-01-04] MEDS: GABAPENTIN 300 MG CAP PO SCH ×2 (08:35→20:48)
[2023-01-04] MEDS: EZETIMIBE 10 MG TAB PO SCH (08:35)
[2023-01-04] MEDS: PANTOPRAZOLE 40 MG/10 ML VIAL IV SCH ×2 (08:36→20:47)
[2023-01-04] MEDS: BACLOFEN 10 MG TAB PO SCH ×2 (08:36→20:47)
[2023-01-04] MEDS: DULoxetine HCL 30 MG CAPSULE.DR PO SCH ×2 (08:36→20:48)
[2023-01-04] MEDS: DOCUSATE 100 MG CAP PO SCH ×2 (08:36→20:47)
[2023-01-04] MEDS: LOSARTAN 50 MG TAB PO SCH (08:39)
[2023-01-04] MEDS: THIAMINE 100 MG TAB PO SCH (08:40)
[2023-01-04] MEDS: MORPHINE SULFATE 4 MG/ML SYRINGE IVP PRN (08:59)
--- NOTE | 2023-01-04 10:06 | P.PN ---
Subjective 67-year-old male was admitted to the hospital with complaints of abdominal pain and found to have cholelithiasis and cholecystitis. Patient also has hypercalcemia. 12/20/2022 Patient is currently lying in the bed. Awake alert and oriented x3. Anxious. Complains of both right upper and and left upper quadrant abdominal pain below the rib cage. Also complaining of back pain. No complaints of nausea vomiting. Patient underwent bone scan today. Due to hypercalcemia. Oncology and nephrology is on board. Laboratory data showed WBC 10.8 hemoglobin 15.1 and platelets 132 BUN 31.4 and creatinine 1.2 and bicarb level is 20.4 anion gap 14.6. Calcium level 12.6. Tumor markers were ordered. 12/21/2022 Patient is currently lying in bed. Awake alert and oriented x3. On oxygen at 4 L via nasal cannula. Still complains of pain below the rib cage. Bone scan was done yesterday showed a markedly heterogenous uptake involving the bilateral rib cage, vertebral column pelvis and calvarium appears to correspond to abnormal marrow appearance of the visualized osseous structures of the CAT scan. Suspect occult malignancy. Otherwise patient is being continued on IV Solu-Medrol DuoNebs and antibiotics and home Zosyn. Also on anticoagulation with Xarelto. Laboratory data showed WBC 8.2 hemoglobin 14.1 and platelets 119 Sodium 138 potassium 4.6 chloride 105 bicarb is 28 BUN 24 and creatinine 1.07 AST 110 ALT 90 alk phos 160. 12/22/2022 Patient is currently lying in bed. Complains of pain. Currently on [place] and morphine sustained-release was ordered. IR guided biopsy of the liver lesion could not be done due to patient being on anticoagulation. Oncology recommends endoscopic evaluation at this time. Otherwise CT of the abdomen pelvis done yesterday showed extensive 1 to 2 cm nodules diffusely throughout the left and right lobes of the liver suspicious for metastatic disease. CEA level is elevated. Laboratory data reviewed. 2022 Patient was admitted to the hospital due to bilateral rib cage pain and hypercalcemia and work-up in process for malignancy. Currently lying in the bed. Awake alert and oriented. No complaints of fever or chills. Currently on 4 L via nasal cannula. Continued on prednisone 30 mg daily. Also, DuoNebs and anticoagulation. Patient is scheduled for EGD and colonoscopy today. Otherwise cultures showed no growth. Patient is off antibiotics currently. Laboratory data showed WBC 8.1 hemoglobin 13.6 and platelets 124 BUN 19.3 and creatinine 0.7. Calcium level came down to 8.5. 12/24/2022 Patient is today had EGD and colonoscopy showing small hiatal hernia and cecal polyp which was removed. No other significant abnormality. Patient had repeat CT of the abdomen and pelvis today showing multiple nodules of the liver suspicious for liver cirrhosis versus metastatic disease area Heterogenous appearance of the osseous structures suspicious for metastatic disease. Moderate to severe stenosis of bilateral iliac arteries and right renal artery. As well as SMA. Cholelithiasis and diverticulitis. Prostate gland calcification 1.1 cm. 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 There was possible to discharge and the patient and do the procedure as an outpatient and follow-up with oncologist as an outpatient on , however patient still complaining of from severe bilateral rib cage pain and tenderness related most likely due to metastatic disease. Upon consult is obtained. Also patient most likely will have biopsy next week. Discussed with staff 12/25/2022 Patient today looks less lethargic and sitting up in chair, however he is more short of breath and Solu-Medrol is adequate. Repeat chest x-ray showed possible right lower pneumonia and Zosyn is added. proCalcitonin is pending. Also liver biopsy is pending 12/26/2022 pt is still lethargic but alert and awake , lying in bed with generalized weakness, he say his chest and rib cage pain is there but feels tolerable he remains on zosyn and solumedrol 40 mg pending [facility]: neg for PE 12/27/2022 pt clinically looks similar to the last few day, somewhat lewthargic and week , slighly tachypneic due to rib cage pain , tumour mass, and possible fluid overload. he is on 5 L of O2 via nasal cannula he supposed to get liver biopsy but per oncology input this may not be feasable as per notes from the IR team . other options are PET scan which is typically do ne as outpatient usually, or diagnostic thoracocentasis, we will defer to oncology team the decision on how to obtain the tissue diagnosis pt got one dose of lasix today which looks it helped him a little bit he is on zosyn and solumedrol 40 mg at bed side and all their questions were answered 12/28/2022 No significant change, still tired and weak . Other that he is hemodynamically stable. No new complaint. Patient remains on Zosyn. IV Solu-Medrol switched to prednisone 20 mg. That looks like patient cannot get liver biopsy per IR team. We will discuss with hematology/oncology team further recommendation and the next step in the diagnosis. 12/29/2022 Patient awake alert does not look in much distress, maybe mild oral no respiratory distress, somewhat tachypneic. Last that his oxygen requirement went up and currently he is on high flow nasal cannula with a flow rate of 55 L/m and FiO2 of 100%. Repeated chest x-ray showing no much change from previous still has patchy infiltrates on both sides, transected looks even slightly better on radiology notes. Steroids has been bumped up to 60 mL again this morning. Also she remains on Zosyn. Also patient has some abdominal distention but he tolerates that well, no abdominal pain and tenderness or vomiting. He is passing flatus but he complains from constipation over the last few days. Patient is not to take narcotic pain medication and he is on senna only therefore we added MiraLAX when necessary and Colace with a close monitoring. Oncology team is working on obtaining a biopsy diagnosis for the patient prior to discharge or plan for that. Patient may benefit from PET scan inpatient per oncology team. Discussed with staff Resume of the care of the patient on 01/03/2023 Patient still hypoxic but improving, and oxygen requirements down to 15 L/m. He is lying in bed with no significant respiratory distress, he reports improved in breathing. No cough, no significant chest pain He has right-sided chest pain related to metastatic disease since admission and directed as it/stent and it looks controlled with fentanyl and when necessary oxycodone. Patient reports having adequate bowel movements and is agreeable with the stool softeners. He remains on Zosyn. Also he is on high-dose IV Solu-Medrol 60 mg -Lasix 40 mg twice daily added yesterday Liver biopsy could not be obtained because of the small lesion per IR, hematology/oncology team saw the case 01/04/2023 Patient today is more dyspneic and lethargic. His oxygen requirement went to 30 L/m, and was 15 with a permanent this morning. Interestingly chest x-ray showing improvement in her radiation. he Is still on Zosyn, IV Lasix for 2 without twice daily and salmederol 60 mg Check labs in the morning Objective - Vital Signs Vital signs: Vital Signs Temp 96.9 F L 01/04/23 08:29 Pulse 72 01/04/23 08:29 Resp 20 01/04/23 08:29 BP 117/56 01/04/23 08:29 Pulse Ox 91 L 01/04/23 08:29 FiO2 82 12/30/22 15:53 Intake & Output 01/03/23 01/04/23 01/04/23 18:59 06:59 18:59 Intake Total 1452 Output Total 1200 Balance 1452 -1200 Intake: Intake, IV Titration 100 Amount Piperacillin-Tazobactam 3 100 .375 gm In Sodium Chloride 0.9% 100 ml @ 25 mls/hr IVPB Q8H [facility] Rx#: [id number] Oral 1352 Output: Urine 1200 Other: Voiding Method Indwelling Catheter Indwelling Catheter Indwelling Catheter - Exam -GENERAL: The patient is alert and oriented x3, less lethargic not in any acute distress. Well developed, well nourished. HEENT: Pupils are round and equally reacting to light. EOMI. No scleral icterus. No conjunctival pallor. Normocephalic, atraumatic. No pharyngeal erythema. No thyromegaly. CARDIOVASCULAR: S1 and S2 present. No murmurs, rubs, or gallops. -PULMONARY: Chest is clear to auscultation, no wheezing , no crackles. Bilateral rib care teaching tenderness ABDOMEN: Soft, nontender, nondistended, normoactive bowel sounds. No palpable organomegaly. MUSCULOSKELETAL: No joint swelling or deformity. EXTREMITIES: No cyanosis, clubbing, or pedal edema. NEUROLOGICAL: Gross neurological examination did not reveal any focal deficits. SKIN: No rashes. no petechiae. - Labs CBC & Chem 7: 01/03/23 08:56 01/03/23 08:56 Labs: Abnormal Lab Results - Last 24 Hours (Table) 01/03/23 01/03/23 01/03/23 Range/Units 08:56 08:56 11:37 RBC 3.18 L (4.30-5.90) m/uL Hgb 10.2 L (13.0-17.5) gm/dL Hct 30.7 L (39.0-53.0) % Plt Count 72 L (150-450) k/uL Lymphocytes # 0.6 L (1.0-4.8) k/uL BUN 32 H (9-20) mg/dL Glucose 125 H (74-99) mg/dL POC Glucose (mg/dL) 129 H (70-110) mg/dL Calcium 6.7 L (8.4-10.2) mg/dL AST 298 H (17-59) U/L ALT 110 H (4-49) U/L Alkaline Phosphatase 296 H (38-126) U/L Total Protein 6.1 L (6.3-8.2) g/dL Albumin 3.2 L (3.5-5.0) g/dL 01/03/23 01/03/23 01/04/23 Range/Units 16:36 20:15 06:02 RBC (4.30-5.90) m/uL Hgb (13.0-17.5) gm/dL Hct (39.0-53.0) % Plt Count (150-450) k/uL Lymphocytes # (1.0-4.8) k/uL BUN (9-20) mg/dL Glucose (74-99) mg/dL POC Glucose (mg/dL) 316 H 131 H 141 H (70-110) mg/dL Calcium (8.4-10.2) mg/dL AST (17-59) U/L ALT (4-49) U/L Alkaline Phosphatase (38-126) U/L Total Protein (6.3-8.2) g/dL Albumin (3.5-5.0) g/dL Assessment and Plan Assessment: Liver cirrhosis, cannot rule out malignancy given multiple nodules and will require liver biopsy Bilateral rib cage pain and tenderness related to possible metastatic osseous disease. Hypercalcemia and pain below the rib cage and also back pain. Malignancy work- up in process. Bone scan showed a markedly heterogenous uptake involving the bilateral rib cage, vertebral column pelvis and calvarium appears to correspond to abnormal marrow appearance of the visualized osseous structures of the CAT scan. Suspect occult malignancy. COPD with no exacerbation Left lower lobe pulmonary nodule measuring 1.5 cm. Outpatient PET scan recommended by pulmonary. Coronary artery disease with prior history of stent placement History of CVA Peripheral vascular disease with previous history of femoropopliteal bypass surgery. Bilateral carotid endarterectomies History of DVT left lower extremity History of CVA/TIA Hypertension Hyperlipidemia Elevated liver enzymes and cholelithiasis without evidence of cholecystitis. History of nephrolithiasis Plan: Consult pain management is appreciated and patient currently is on fentanyl and oxycodone when necessary. Started on Zosyn and IV prednisone Several consultants on the case including hematology/oncology, pulmonary service Plan for patient cannot get liver biopsy. consultants on the case including hematology/oncology, pulmonary service and GI service. Labs and medication were reviewed.. Continue same treatment. Continue with symptomatic treatment. Resume home medication. Monitor labs and vitals. DVT and GI prophylaxis. Further recommendations as per clinical course of the patient DVT prophylaxis: Subcutaneous heparin GI Prophylaxis: Ppi PT/OT: Pending Prognosis is guarded
--- NOTE | 2023-01-04 11:11 | XR ---
EXAMINATION TYPE: XR abdomen 1V DATE OF EXAM: 01/04/2023 COMPARISON: 01/02/2023 HISTORY: ABDOMINAL DISTENSION AND PAIN X 2 WEEKS. TECHNIQUE: One view abdominal series FINDINGS: The osseous structures are intact. The bowel gas pattern is nonspecific. Elevated right hemidiaphrag m with dilated bowel loops. Hypertrophic and degenerative changes of the spine. Severe arthropathy le ft postsurgical change right hip. Vascular calcifications noted. Chronic rib deformities are noted. IMPRESSION: 1. Persistent stable dilated bowel loop unchanged from prior exam. Bowel gas pattern nonspecific. Tra nsverse colon and right colon does appear to be dilated out of proportion to the left colon. Partial obstructive pattern in the differential diagnosis 2. Extensive retained debris in the right colon correlate for constipation.
--- NOTE | 2023-01-04 11:12 | XR ---
EXAMINATION TYPE: XR chest 1V portable DATE OF EXAM: 01/04/2023 COMPARISON: 01/03/2023, HISTORY: Shortness of breath TECHNIQUE: Single frontal view of the chest is obtained. FINDINGS: There is limited inspiration with subsegmental bibasilar linear changes. No pleural effusi on or pneumothorax. AC joint arthropathy.. The cardiac silhouette size is within normal limits. Th e osseous structures are intact. Limited inspiration. IMPRESSION: 1. Basilar atelectasis favored over pneumonia stable from prior exam. Correlate clinically 2. Continued improvement and resolution of right upper lobe infiltrate.
[2023-01-04 11:45] LABS: Glucose,Whole Blood 145 mg/dL (70-110)
--- NOTE | 2023-01-04 11:47 | P.PN ---
Subjective Progress Note Date: 01/04/23 67-year-old male patient was transferred to us from [facility] for diffuse pain. The pain is mainly across his chest and upper abdomen and across the rib cage addition to chronic back pain. Is known to have chronic dyspnea and the patient is noted COPD and a left lung pulmonary nodule that has been followed up on outpatient basis. Initially went to [facility] and his calcium level was noted to be elevated. Based on his ongoing symptoms, he was referred to us. His current calcium level is at 13. He did not have any previous issues with hypercalcemia. Is known to have COPD, pulmonary nodule, coronary artery disease and extensive peripheral vascular disease and the sruthi ent has undergone previous vascular bypass surgery and stenting to the lower extremities. He is also known to have previous history of DVT. Maintain on long-term anticoagulants. At the same time, the patient has hypertension, hyperlipidemia, obesity, chronic back pain and a recent MRI from August 2022 showed wedging of the L2 spine in the order of 15% without any acute fractures. There is also multilevel spondylitic changes and mildly prominent narrowing due to facet arthropathy and disc space narrowing at the level of L4-L5 and old compression fracture the level of L2. Mild edema in the anterior L3 vertebral and posterior L5 vertebral and there is no evidence of any significant lumbar s tenosis. The computed tomography scan of the abdomen and pelvis that was done in 09/22/2022 showed moderate to severe narrowing throughout the bilateral external iliac arteries and a stent in the superficial femoral artery was patent on the left. There was cholelithiasis and moderate atherosclerotic changes throughout the abdominal aorta and colonic diverticulosis. There are atelectatic changes in the right posterior base. On today's evaluation 01/03/2023, the patient remains hypoxic and the patient remains on 15 L of oxygen by nasal cannula high flow to maintain a saturation above 90%. He is still being investigated for an underlying malignancy as the patient has an elevated CEA level and he presented to us with hypercalcemia. The patient was treated for hypercalcemia and he was given a combination of calcitonin and Zometa. His PTH level is low and PTH related peptide still pending. He also has a liver lesion and he was supposed to undergo an MRI of his liver for better characterization of the liver mass and the patient was unable to tolerate to lay down flat. He had a chest x-ray was showing the development of a right midlung patchy airspace disease most on the right upper lobe and to also some airspace opacities in the left lung base concerning for pneumonia. Repeat chest x-ray was done and the patient showed improvement in the right upper lobe pulmonary infiltrate with bilateral lower lobe pulmonary infiltrates and small effusion. Lung volumes are essentially small. The patient remains on broad-spectrum antibiotics. The patient is on IV Zosyn for now. He is also having significant amount of edema lower extremity bilaterally and he remains on IV Lasix 40 mg every 12 hours. He remains on bronchodilators. Oncologist on the case. Final diagnoses not been achieved yet. On today's evaluation of 01/04/2023, the patient's condition is somewhat decom pensated. He was placed on 100% nonrebreather facemask in addition to the 15 L of oxygen by nasal cannula to maintain a saturation above 90%. I repeated the chest x-ray and there is evidence of bibasilar atelectasis and there is continued improvement and resolution of the right upper lobe pulmonary infiltrates. X-ray of the abdomen also showed some stable dilated bowel loops unchanged from previous evaluation. The transverse colon and the right colon appears to be dilated out of proportion to the left colon. Partial obstruction/ileus cannot be completely excluded. Extensive retained breathes in the right colon could be related to underlying constipation. The patient has no abdominal pain. Abdomen is slightly distended. The patient remains on diuretics. The patient is producing urine output. Continues to have significant amount of edema lower extremity bilaterally. Remains on IV Zosyn. Remains on IV Lasix. Remains on bronchodilators and steroids. Objective - Vital Signs Vital signs: Vital Signs Temp 96.9 F L 01/04/23 08:29 Pulse 72 01/04/23 08:29 Resp 20 01/04/23 08:29 BP 117/56 01/04/23 08:29 Pulse Ox 91 L 01/04/23 08:29 FiO2 82 12/30/22 15:53 Intake & Output 01/03/23 01/04/23 01/04/23 18:59 06:59 18:59 Intake Total 1452 Output Total 1200 Balance 1452 -1200 Intake: Intake, IV Titration 100 Amount Piperacillin-Tazobactam 3 100 .375 gm In Sodium Chloride 0.9% 100 ml @ 25 mls/hr IVPB Q8H [facility] Rx#: [id number] Oral 1352 Output: Urine 1200 Other: Voiding Method Indwelling Catheter Indwelling Catheter Indwelling Catheter - Exam Gen. appearance obese, comfortable, no acute distress BMI 30.4 Currently on high flow nasal cannula at 15 L in addition to 100% nonrebreather facemask Head exam was generally normal. There was no scleral icterus or corneal arcus. Mucous membranes were moist. Neck was supple and without jugular venous distension, thyromegaly, or carotid bruits. Carotids were easily palpable bilaterally. There was no adenopathy. Lungs sounds are diminished bilaterally and the patient has scattered expiratory wheeze Cardiac exam revealed the PMI to be normally situated and sized. The rhythm was regular and no extrasystoles were noted during several minutes of auscultation. The first and second heart sounds were normal and physiologic splitting of the second heart sound was noted. There were no murmurs, rubs, clicks, or gallops. Abdominal exam revealed normal bowel sounds. The abdomen was soft, non-tender, and without masses, organomegaly, or appreciable enlargement of the abdominal aorta. Examination of the extremities revealed easily palpable radial, femoral and pedal pulses. There was no cyanosis, clubbing or edema. Examination of the skin revealed no evidence of significant rashes, suspicious appearing nevi or other concerning lesions. Neurologically, the patient is awake and alert and the patient does not have any focal neurological deficit. Cranial nerves are essentially intact. - Labs CBC & Chem 7: 01/03/23 08:56 01/03/23 08:56 Labs: Abnormal Lab Results - Last 24 Hours (Table) 01/03/23 01/03/23 01/03/23 Range/Units 08:56 11:37 16:36 BUN 32 H (9-20) mg/dL Glucose 125 H (74-99) mg/dL POC Glucose (mg/dL) 129 H 316 H (70-110) mg/dL Calcium 6.7 L (8.4-10.2) mg/dL AST 298 H (17-59) U/L ALT 110 H (4-49) U/L Alkaline Phosphatase 296 H (38-126) U/L Total Protein 6.1 L (6.3-8.2) g/dL Albumin 3.2 L (3.5-5.0) g/dL 01/03/23 01/04/23 Range/Units 20:15 06:02 BUN (9-20) mg/dL Glucose (74-99) mg/dL POC Glucose (mg/dL) 131 H 141 H (70-110) mg/dL Calcium (8.4-10.2) mg/dL AST (17-59) U/L ALT (4-49) U/L Alkaline Phosphatase (38-126) U/L Total Protein (6.3-8.2) g/dL Albumin (3.5-5.0) g/dL Assessment and Plan Plan: Assessment and Plan Assessment: Acute hypoxic respiratory failure with multilobar pneumonia more so on the right upper lobe/right middle lobe area, improving with IV Zosyn. The patient was a high flow oxygen which has been weaned down and currently is on 15 L of O2 nasal cannula in addition to 100% on rebreather facemask to maintain a saturation above 90%. The repeat chest x-ray from today showing resolution of the previously described right upper lobe pulmonary infiltrate and there is evidence of bibasilar pulmonary atelectatic changes. In fact, the hypoxemia is out of proportion to the findings noted on the chest x-ray Shortness of breath secondary to above Diffuse skeletal pain involving the chest wall and back. Bone scan did reveal marked heterogenous uptake involving the bilateral rib cage, vertebral column, pelvis and calvarium appears to correspond to abnormal marrow appearance of the visualized osseous structures on CAT scan. Suspect malignancy. Carcinoembryonic antigen 4441. CA 199 antigen 69.5. Colonoscopy from 12/23/2022 revealed a 5 mm cecal and a 1 cm ascending colon polyps status post biopsies. Pathology pendi ng. No masses identified. He will need a liver biopsy. Xarelto, Aspirin and Plavix remain on hold. Computed tomography scan of the abdomen revealed innumerable small nodules throughout the liver. Heterogenous appearance to the osseous structures. Given the liver findings, correlate for potential infiltrative disease or diffuse osseous metastatic disease. CT angiogram from 12/26/2022 ruled out pulmonary embolism. Hypercalcemia. Received Zometa. Calcium level improved. Acute hypoxemic respiratory failure secondary to an acute exacerbation of chronic obstructive pulmonary disease. Left lower lobe pulmonary nodule measuring 1.5 cm, will need an outpatient PET CT and further investigation. Probable metastatic disease to the lung. Coronary artery disease. Vascular disease with a previous fem-pop bypass surgery. Bilateral carotid endarterectomies. Coronary artery disease and coronary stenting. Previous history of CVA. Previous history of DVT of the left lower extremity. Previous history of Covid 19 infection in February 2021. Hypertension. Hyperlipidemia. Abnormal LFTs with cholelithiasis without evidence of cholecystitis. History of nephrolithiasis. Plan: Chest x-rays improving The hypoxemia is out of proportion to the findings on the chest x-ray. I'm going to order another CT angiogram Continue IV Zosyn Continue IV Lasix The patient will be gradually weaned off his FiO2 and currently is on 15 L O2 nasal cannula and 100% nonrebreather facemask Unable to do the MRI of the liver at this point in time and this can be done at later stage Calcium level is normalized We'll continue with oncology Obviously malignancy workup can be also on an outpatient basis once the patient is more stable and oxygen patient is further improved. She the patient will need a PET/CT We'll continue to follow Time with Patient: Less than 30
[2023-01-04] MEDS ORDERED: FUROSEMIDE 10 MG/ML 4 ML VIAL IV STA (12:57)
[2023-01-04 13:00] LABS: Glucose,Whole Blood 137 mg/dL (70-110)
--- NOTE | 2023-01-04 13:44 | P.PN ---
Subjective Progress Note Date: 01/04/23 Principal diagnosis: Abdominal pain. Liver lesions. In follow-up today patient is laying in bed, he is on nasal cannula as well as a nonrebreather mask. 2 days ago he was participating with physical therapy per his , the last 2 days he has progressively become weaker and not able to move much. He falls asleep while talking and then startles himself awake. He has a lot of urine output in garcia. His abdomen feels a little less distended and tight, little less pain with palpation in the epigastric area for the patient. Pain is now concentrated on the buttocks/coccyx area from laying. Chest x-ray from today reports basilar atelectasis favored over pneumonia, stabl e, continued improvement and resolution of right upper lobe infiltrate. Abdominal x-ray reporting persistent stable dilated bowel loops unchanged from prior, transverse colon and right colon do appear to be dilated out of proportion to the left colon, partial obstructive pattern is in the different ial, extensive retained debris's in the right colon, correlate for constipation. Objective - Vital Signs Vital signs: Vital Signs Temp 96.9 F L 01/04/23 08:29 Pulse 68 01/04/23 11:32 Resp 20 01/04/23 11:06 BP 124/62 01/04/23 11:06 Pulse Ox 91 L 01/04/23 11:06 FiO2 100 01/04/23 13:00 Intake & Output 01/03/23 01/04/23 01/04/23 18:59 06:59 18:59 Intake Total 1452 200 Output Total 1200 Balance 1452 -1200 200 Weight 102 kg Intake: Intake, IV Titration 100 Amount Piperacillin-Tazobactam 3 100 .375 gm In Sodium Chloride 0.9% 100 ml @ 25 mls/hr IVPB Q8H [facility] Rx#: [id number] Oral 1352 200 Output: Urine 1200 Other: Voiding Method Indwelling Catheter Indwelling Catheter Indwelling Catheter - Constitutional General appearance: Present: cooperative, mild distress, obese - EENT Eyes: Present: anicteric sclerae, EOMI ENT: Present: hearing grossly normal - Respiratory Respiratory: bilateral: diminished, prolonged expiration - Cardiovascular Heart sounds: normal: S1, S2 - Peripheral edema leg Peripheral Edema: bilateral: Trace - Gastrointestinal Gastrointestinal Comment(s): distant BS General gastrointestinal: Present: distended, soft - Neurologic Neurologic: Present: CNII-XII intact - Musculoskeletal Musculoskeletal: Present: generalized weakness - Psychiatric Psychiatric: Present: A&O x's 3, appropriate affect, intact judgment & insight - Labs CBC & Chem 7: 01/03/23 08:56 01/03/23 08:56 Labs: Abnormal Lab Results - Last 24 Hours (Table) 01/03/23 01/03/23 01/04/23 Range/Units 16:36 20:15 06:02 POC Glucose (mg/dL) 316 H 131 H 141 H (70-110) mg/dL 01/04/23 01/04/23 Range/Units 11:43 12:57 POC Glucose (mg/dL) 145 H 137 H (70-110) mg/dL - Imaging and Cardiology Chest x-ray: report reviewed Abdominal x-ray: report reviewed Assessment and Plan (1) Liver lesion Current Visit: Yes Status: Acute Priority: High Code(s): K76.9 - LIVER DISEASE, UNSPECIFIED SNOMED Code(s): 393433347 (2) Abdominal pain Current Visit: Yes Status: Acute Priority: High Code(s): R10.9 - UNSPECIFIED ABDOMINAL PAIN SNOMED Code(s): 80543375 (3) Elevated tumor markers Current Visit: Yes Status: Acute Priority: Medium Code(s): R97.8 - OTHER ABNORMAL TUMOR MARKERS SNOMED Code(s): 371466848 (4) Hypercalcemia Current Visit: Yes Status: Resolved Priority: High Code(s): E83.52 - HYPERCALCEMIA SNOMED Code(s): 89996380 Plan: Liver lesion -Outpatient plans for biopsy on 01/06. Bx will happen only if the Radiologist coming on feels that the liver lesions can be biopsied AND pt respiratory status is stable enough to position for procedure. Await IR review of the case and respiratory assessment. -MRI of the liver unable to be done due to resp status and pt unable to lay flat for more then a minute or 2. Patient's liver enzymes yesterday were stable. -CEA elevated at 4441 -Patient do understand that there are concerns for malignancy. Now contending with pt resp status as a barrier to imaging and biopsy. -Aspirin has been held -EGD and colonoscopy completed, cecal polyp and ascending colon polyp. Pathology reporting tubular adenoma Abdominal pain -Pain mgmt consulted and managing. Abd pain seems to be better -Buttocks/coccyx pain from laying and pt not being able to adjust his body weight himself. He is being positioned by staff -Abdominal x-ray reporting persistent stable dilated bowel loops unchanged from prior, transverse colon and right colon do appear to be dilated out of proportion to the left colon, partial obstructive pattern is in the different ial, extensive retained debris's in the right colon, correlate for constipation. Consider giving miralax or docusate Shortness of breath -On NC and NRB, per Resp therapist both are "maxed". Pt O2 sat 91% -CXR from today reports basilar atelectasis favored over pneumonia, stable, continued improvement and resolution of right upper lobe infiltrate. -Pulmonary following Hypercalcemia-resolved -Treated with calcitonin and zometa. -PTH significantly low, 5.4. PTHrP is still pending....no results-spoke to lab, who had me call [facility], who state it was faxed on 12/27 and that cannot give me those results so, I called lab back to let them know the results are being faxed and if they could please load them into the system as soon as possible -Concern is that this has hypercalcemia of malignancy. Pending stability of pt
[2023-01-04] MEDS ORDERED: HEPARIN SODIUM 1,000 UN/ML (10ML VL) IV PRN (14:10)
[2023-01-04] MEDS ORDERED: HEPARIN SOD,PORK IN 0.45% NACL 25,000 UNIT in 0.45% NACL 1 250ML.BAG IV SCH (14:15)
[2023-01-04 15:33] LABS: INR 1.2 (<1.2); Partial Thromboplastin Time 36.9 sec (22.0-30.0); Prothrombin Time 12.1 sec (9.0-12.0)
[2023-01-04 15:34] LABS: Basophils % (A) 0 %; Eosinophils # (A) 0.1 k/uL (0-0.7); Eosinophils % (A) 1 %; HCT 28.9 % (39.0-53.0); HGB 10.1 gm/dL (13.0-17.5); Lymphocytes # (A) 0.7 k/uL (1.0-4.8); Lymphocytes % (A) 8 %; MCH 33.8 pg (25.0-35.0); MCV 96.7 fL (80.0-100.0); Mean Platelet Volume 8.3; Monocytes # (A) 0.4 k/uL (0-1.0); Monocytes % (A) 4 %; Neutrophils # (A) 7.3 k/uL (1.3-7.7); Neutrophils % (A) 85 %; RBC 2.99 m/uL (4.30-5.90); RDW 14.6 % (11.5-15.5); WBC 8.5 k/uL (3.8-10.6)
[2023-01-04 15:35] LABS: Platelet Count 95 k/uL (150-450)
--- NOTE | 2023-01-04 15:44 | CT ---
EXAMINATION TYPE: CT angio chest CT DLP: 655.2 mGycm, Automated exposure control for dose reduction was used. DATE OF EXAM: 01/04/2023 3:32 PM COMPARISON: CTA chest 12/26/2022, 11/17/2022 CLINICAL INDICATION:Male, 67 years old with history of Hypoxemia; hypoxic TECHNIQUE/CONTRAST: CTA scan of the thorax is performed with IV Contrast, patient injected with 100 mL of Isovue 370, pul monary embolism protocol. MIP images are created and reviewed. FINDINGS: Pulmonary Artery: There is no evidence for a filling defect within the pulmonary vasculature to sugge st acute pulmonary embolism. The pulmonary artery is dilated measuring 3.7 cm in diameter which can be seen in the setting of pulmonary arterial hypertension. Lungs/Pleura: No pleural effusion or pneumothorax. Atelectasis/consolidation identified within the ri ght middle lobe and bilateral lower lobes with air bronchograms. Patchy ground glass opacities identi fied within the right upper and lower lobes. Mild centrilobular emphysematous changes. Additional pat rebekah groundglass opacities identified within the lingula. Airway: Large airways are patent. Heart: Heart is mildly enlarged. No pericardial effusion. Moderate coronary tear calcifications. 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 Atherosclerotic calcification of the aorta.. Mediastinum: No evidence of adenopathy. Musculoskeletal: No acute osseous abnormalities. Redemonstration of T7 compression foreign with appro ximately 50% height loss and no retropulsion. Soft Tissues: Unremarkable. Lower neck: No significant findings. Upper Abdomen: Hepatic cirrhotic morphology redemonstrated. Fatty infiltration of the pancreas.. IMPRESSION: 1. No evidence of pulmonary embolism. 2. And right middle lobe atelectasis/consolidation with patchy groundglass opacities in the right upp er and lower lobes and also the lingula. Findings are concerning for possible pneumonia. 3. Mild to moderate COPD changes. 4. Hepatic cirrhosis. 5. Dilated main pulmonary which can be seen setting of pulmonary hypertension.
[2023-01-04 17:49] LABS: Glucose,Whole Blood 122 mg/dL (70-110)
[2023-01-04 20:07] LABS: Glucose,Whole Blood 119 mg/dL (70-110)
[2023-01-04] MEDS: ATORVASTATIN 80 MG TAB PO SCH (20:47)
[2023-01-04] MEDS: amLODIPine 10 MG TAB PO SCH (20:47)
[2023-01-05] MEDS: methylPREDNISolone SOD SUCCI 125 MG/2 ML VIAL IV SCH ×5 (01:07→23:20)
[2023-01-05] MEDS: MORPHINE SULFATE 4 MG/ML SYRINGE IVP PRN ×3 (01:14→17:23)
[2023-01-05] MEDS: PIPERACILLIN-TAZOBACTAM 3.375 GM in SODIUM CHLORIDE 0.9% 100 ML IVPB SCH ×3 (02:07→17:13)
[2023-01-05] MEDS: IPRATROPIUM-ALBUTEROL 3 ML NEB INHALATION PRN (04:33)
[2023-01-05 04:56] LABS: ALT 140 U/L (4-49); AST 282 U/L (17-59); African American GFR (CKD) 78 (>60 ml/min/1.73 sqM); Albumin 3.3 g/dL (3.5-5.0); Alkaline Phosphatase 292 U/L (38-126); Anion Gap 9 mmol/L; Bilirubin, Delta 0.8 mg/dL (0.0-0.2); Bilirubin,Unconjugated 0.5 mg/dL (0.0-1.1); Blood Urea Nitrogen 40 mg/dL (9-20); Carbon Dioxide 24 mmol/L (22-30); Chloride 102 mmol/L (98-107); Glucose 137 mg/dL (74-99); Non-African American GFR(CKD) 68 (>60 ml/min/1.73 sqM); Potassium 3.9 mmol/L (3.5-5.1); Sodium 135 mmol/L (137-145); Total Bilirubin 1.3 mg/dL (0.2-1.3); Total Protein 6.7 g/dL (6.3-8.2)
[2023-01-05 05:03] LABS: Calcium 6.3 mg/dL (8.4-10.2)
[2023-01-05 05:18] LABS: Basophils % (A) 0 %; Eosinophils # (A) 0.1 k/uL (0-0.7); Eosinophils % (A) 1 %; HCT 29.1 % (39.0-53.0); HGB 9.9 gm/dL (13.0-17.5); Lymphocytes # (A) 0.5 k/uL (1.0-4.8); Lymphocytes % (A) 10 %; MCH 32.7 pg (25.0-35.0); MCHC 34.1 g/dL (31.0-37.0); MCV 95.8 fL (80.0-100.0); Mean Platelet Volume 8.7; Monocytes # (A) 0.3 k/uL (0-1.0); Monocytes % (A) 6 %; Neutrophils # (A) 4.5 k/uL (1.3-7.7); Neutrophils % (A) 82 %; RBC 3.03 m/uL (4.30-5.90); RDW 14.7 % (11.5-15.5); WBC 5.5 k/uL (3.8-10.6)
[2023-01-05 05:19] LABS: Platelet Count 97 k/uL (150-450)
[2023-01-05] MEDS ORDERED: CALCIUM GLUCONATE IN NACL 2 GM in SALINE 1 100ML.BAG IVPB ONE (05:30)
[2023-01-05] MEDS ORDERED: POTASSIUM CHLORIDE ER 20 MEQ TAB.ER PO SCH (06:00)
[2023-01-05 06:07] LABS: ABG Base Excess 2.8 mmol/L; ABG HCO3 27 mmol/L (21-25); ABG Oxygen Saturation 92.9 % (94-97); ABG PCO2 40 mmHg (35-45); ABG PH 7.44 (7.35-7.45); ABG PO2 61 mmHg (83-108); ABG TCO2 28 mmol/L (19-24); Allen Test Performed? Yes
[2023-01-05 06:27] LABS: Glucose,Whole Blood 144 mg/dL (70-110)
[2023-01-05] MEDS: INSULIN ASPART (NovoLOG) 100 UNIT/ML VIAL SQ SCH ×4 (06:29→20:30)
[2023-01-05] MEDS: FORMOTEROL FUMARATE 20 MCG/2 ML NEBU INHALATION SCH ×2 (08:08→19:59)
[2023-01-05] MEDS: IPRATROPIUM-ALBUTEROL 3 ML NEB INHALATION SCH ×4 (08:08→19:59)
[2023-01-05] MEDS: BUDESONIDE 1 MG/2 ML NEBU INHALATION SCH ×2 (08:08→20:00)
[2023-01-05] MEDS: GABAPENTIN 300 MG CAP PO SCH ×2 (08:15→20:29)
[2023-01-05] MEDS: METOPROLOL TARTRATE 25 MG TAB PO SCH ×2 (08:15→20:29)
[2023-01-05] MEDS: THIAMINE 100 MG TAB PO SCH (08:16)
[2023-01-05] MEDS: PANTOPRAZOLE 40 MG/10 ML VIAL IV SCH ×2 (08:16→20:29)
[2023-01-05] MEDS: LOSARTAN 50 MG TAB PO SCH (08:16)
[2023-01-05] MEDS: BACLOFEN 10 MG TAB PO SCH ×2 (08:16→20:29)
[2023-01-05] MEDS: FUROSEMIDE 10 MG/ML 4 ML VIAL IV SCH ×2 (08:16→20:30)
[2023-01-05] MEDS: SENNOSIDES-DOCUSATE SODIUM 1 EACH TAB PO SCH ×2 (08:16→21:34)
[2023-01-05] MEDS: DOCUSATE 100 MG CAP PO SCH ×2 (08:17→20:29)
--- NOTE | 2023-01-05 08:20 | XR ---
EXAMINATION TYPE: XR chest 1V portable DATE OF EXAM: 01/05/2023 COMPARISON: 01/04/2023 HISTORY: Cough TECHNIQUE: Single frontal view of the chest is obtained. FINDINGS: Limited exam due to motion and lack of inclusion of portions of the lungs. Bilateral conso lidation noted in the right upper lobe and bilateral lower lobes. No pneumothorax. Heart size is mild ly prominent. Atherosclerotic change aorta. Diffuse osteopenia throughout the shoulders. Atherosclero tic changes of the aorta. IMPRESSION: 1. Bilateral infiltrate with progression in the right upper lobe relative to prior exam.
[2023-01-05] MEDS: DULoxetine HCL 30 MG CAPSULE.DR PO SCH ×2 (08:22→20:29)
--- NOTE | 2023-01-05 10:49 | P.PN ---
Subjective Progress Note Date: 01/05/23 67-year-old male patient was transferred to us from [facility] for diffuse pain. The pain is mainly across his chest and upper abdomen and across the rib cage addition to chronic back pain. Is known to have chronic dyspnea and the patient is noted COPD and a left lung pulmonary nodule that has been followed up on outpatient basis. Initially went to [facility] and his calcium level was noted to be elevated. Based on his ongoing symptoms, he was referred to us. His current calcium level is at 13. He did not have any previous issues with hypercalcemia. Is known to have COPD, pulmonary nodule, coronary artery disease and extensive peripheral vascular disease and the sruthi ent has undergone previous vascular bypass surgery and stenting to the lower extremities. He is also known to have previous history of DVT. Maintain on long-term anticoagulants. At the same time, the patient has hypertension, hyperlipidemia, obesity, chronic back pain and a recent MRI from August 2022 showed wedging of the L2 spine in the order of 15% without any acute fractures. There is also multilevel spondylitic changes and mildly prominent narrowing due to facet arthropathy and disc space narrowing at the level of L4-L5 and old compression fracture the level of L2. Mild edema in the anterior L3 vertebral and posterior L5 vertebral and there is no evidence of any significant lumbar s tenosis. The computed tomography scan of the abdomen and pelvis that was done in 09/22/2022 showed moderate to severe narrowing throughout the bilateral external iliac arteries and a stent in the superficial femoral artery was patent on the left. There was cholelithiasis and moderate atherosclerotic changes throughout the abdominal aorta and colonic diverticulosis. There are atelectatic changes in the right posterior base. On today's evaluation 01/03/2023, the patient remains hypoxic and the patient remains on 15 L of oxygen by nasal cannula high flow to maintain a saturation above 90%. He is still being investigated for an underlying malignancy as the patient has an elevated CEA level and he presented to us with hypercalcemia. The patient was treated for hypercalcemia and he was given a combination of calcitonin and Zometa. His PTH level is low and PTH related peptide still pending. He also has a liver lesion and he was supposed to undergo an MRI of his liver for better characterization of the liver mass and the patient was unable to tolerate to lay down flat. He had a chest x-ray was showing the development of a right midlung patchy airspace disease most on the right upper lobe and to also some airspace opacities in the left lung base concerning for pneumonia. Repeat chest x-ray was done and the patient showed improvement in the right upper lobe pulmonary infiltrate with bilateral lower lobe pulmonary infiltrates and small effusion. Lung volumes are essentially small. The patient remains on broad-spectrum antibiotics. The patient is on IV Zosyn for now. He is also having significant amount of edema lower extremity bilaterally and he remains on IV Lasix 40 mg every 12 hours. He remains on bronchodilators. Oncologist on the case. Final diagnoses not been achieved yet. On today's evaluation of 01/04/2023, the patient's condition is somewhat decom pensated. He was placed on 100% nonrebreather facemask in addition to the 15 L of oxygen by nasal cannula to maintain a saturation above 90%. I repeated the chest x-ray and there is evidence of bibasilar atelectasis and there is continued improvement and resolution of the right upper lobe pulmonary infiltrates. X-ray of the abdomen also showed some stable dilated bowel loops unchanged from previous evaluation. The transverse colon and the right colon appears to be dilated out of proportion to the left colon. Partial obstruction/ileus cannot be completely excluded. Extensive retained breathes in the right colon could be related to underlying constipation. The patient has no abdominal pain. Abdomen is slightly distended. The patient remains on diuretics. The patient is producing urine output. Continues to have significant amount of edema lower extremity bilaterally. Remains on IV Zosyn. Remains on IV Lasix. Remains on bronchodilators and steroids. On 01/05/2023, the patient is being seen in the intensive care unit. The patient got transferred to the ICU because of progressive hypoxemia. The patient was placed on a BiPAP and the patient is currently on BiPAP at a pres sure of 14/10 cm of water with FiO2 of 100%. A CT angiogram was done yesterday that showed no evidence of any pulmonary embolism. The CT angiogram showed atelectatic changes in lung bases bilaterally involving the lower lobes and some limited patchy groundglass pulmonary infiltrates and the right upper lobe and the right lower lobe in addition to some background emphysema. However, the abnormalities that were seen are not significant and the patient's hypoxemia remains out of proportion to the CAT scan findings. The patient was also demonstrated to have a T7 compression fracture with 50% height loss. 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 The patient remains on a combination of antibiotics and diuretics. The patient is currently on IV Zosyn and the patient is also receiving Lasix 40 mg IV every 12 hours. The patient remains in negative fluid balance of the lower extremity edema has been improving. The blood gas from today shows a pH of 7.44 with a pC O2 of 40 and pO2 of 61. BUN is at 40 with a creatinine of 1.1 and a sodium level is at 135. The white cell count of 5.5 with a hemoglobin of 9.9. Abdomen is still distended. If at some of the abdomen was done yesterday and it showed stable dilated bowel loops unchanged compared to the earlier x-ray of 01/02/2023. The bowel gas pattern is nonspecific. Transfers: And right colon does appear to be dilated out of proportion to the left. Partial obstruction is within depression diagnosis. Is also extensive retained degrees and stool and the right colon suggesting the possibility of constipation. The patient is currently on a combination of laxatives and the patient is currently receiving senna and Colace. He is awake and alert and communicating at this point in time. Objective - Vital Signs Vital signs: Vital Signs Temp 98.5 F 01/05/23 08:00 Pulse 70 01/05/23 10:00 Resp 13 01/05/23 10:00 BP 113/66 01/05/23 10:00 Pulse Ox 93 L 01/05/23 10:00 FiO2 100 01/05/23 09:00 Intake & Output 01/04/23 01/05/23 01/05/23 18:59 06:59 18:59 Intake Total 290 440 490 Output Total 550 1100 350 Balance -260 -660 140 Weight 99.6 kg Intake: IV 40 440 140 0.9 40 240 40 Calcium Gluconate in NaCl 100 2 gm In Saline 1 100ml. bag @ 100 mls/hr IVPB ONCE ONE Rx#:[id number] Piperacillin-Tazobactam 3 100 100 .375 gm In Sodium Chloride 0.9% 100 ml @ 25 mls/hr IVPB Q8H [facility] Rx#: [id number] Intake, IV Titration 50 Amount Piperacillin-Tazobactam 3 50 .375 gm In Sodium Chloride 0.9% 100 ml @ 25 mls/hr IVPB Q8H [facility] Rx#: [id number] Oral 200 350 Output: Urine 550 1100 350 Other: Voiding Method Indwelling Catheter Indwelling Catheter - Exam Gen. appearance obese, comfortable, no acute distress BMI 30.4 Currently on BiPAP at pressure 14/10 cm of water would notify to 100% Head exam was generally normal. There was no scleral icterus or corneal arcus. Mucous membranes were moist. Neck was supple and without jugular venous distension, thyromegaly, or carotid bruits. Carotids were easily palpable bilaterally. There was no adenopathy. Lungs sounds are diminished bilaterally and the patient has scattered expiratory wheeze Cardiac exam revealed the PMI to be normally situated and sized. The rhythm was regular and no extrasystoles were noted during several minutes of auscultation. The first and second heart sounds were normal and physiologic splitting of the second heart sound was noted. There were no murmurs, rubs, clicks, or gallops. Abdominal exam revealed normal bowel sounds. The abdomen was soft, non-tender, and without masses, organomegaly, or appreciable enlargement of the abdominal ao rta. Abdomen is distended with hypoactive bowel sounds. No direct tenderness. No rebound tenderness or guarding Examination of the extremities revealed easily palpable radial, femoral and pedal pulses. There was no cyanosis, clubbing or edema. Examination of the skin revealed no evidence of significant rashes, suspicious appearing nevi or other concerning lesions. Neurologically, the patient is awake and alert and the patient does not have any focal neurological deficit. Cranial nerves are essentially intact. - Labs CBC & Chem 7: 01/05/23 04:33 01/05/23 04:33 Labs: Abnormal Lab Results - Last 24 Hours (Table) 01/04/23 01/04/23 01/04/23 Range/Units 11:43 12:57 15:05 RBC 2.99 L (4.30-5.90) m/uL Hgb 10.1 L (13.0-17.5) gm/dL Hct 28.9 L (39.0-53.0) % Plt Count 95 L (150-450) k/uL Lymphocytes # 0.7 L (1.0-4.8) k/uL PT (9.0-12.0) sec INR (<1.2) APTT (22.0-30.0) sec ABG pO2 (83-108) mmHg ABG HCO3 (21-25) mmol/L ABG Total CO2 (19-24) mmol/L ABG O2 Saturation (94-97) % Sodium (137-145) mmol/L BUN (9-20) mg/dL Glucose (74-99) mg/dL POC Glucose (mg/dL) 145 H 137 H (70-110) mg/dL Calcium (8.4-10.2) mg/dL Delta Bilirubin (0.0-0.2) mg/dL AST (17-59) U/L ALT (4-49) U/L Alkaline Phosphatase (38-126) U/L Albumin (3.5-5.0) g/dL Procalcitonin (0.02-0.09) ng/mL 01/04/23 01/04/23 01/04/23 Range/Units 15:05 17:47 18:08 RBC (4.30-5.90) m/uL Hgb (13.0-17.5) gm/dL Hct (39.0-53.0) % Plt Count (150-450) k/uL Lymphocytes # (1.0-4.8) k/uL PT 12.1 H (9.0-12.0) sec INR 1.2 H (<1.2) APTT 36.9 H (22.0-30.0) sec ABG pO2 (83-108) mmHg ABG HCO3 (21-25) mmol/L ABG Total CO2 (19-24) mmol/L ABG O2 Saturation (94-97) % Sodium (137-145) mmol/L BUN (9-20) mg/dL Glucose (74-99) mg/dL POC Glucose (mg/dL) 122 H (70-110) mg/dL Calcium (8.4-10.2) mg/dL Delta Bilirubin (0.0-0.2) mg/dL AST (17-59) U/L ALT (4-49) U/L Alkaline Phosphatase (38-126) U/L Albumin (3.5-5.0) g/dL Procalcitonin 0.17 H (0.02-0.09) ng/mL 01/04/23 01/05/23 01/05/23 Range/Units 20:05 04:33 04:33 RBC 3.03 L (4.30-5.90) m/uL Hgb 9.9 L (13.0-17.5) gm/dL Hct 29.1 L (39.0-53.0) % Plt Count 97 L (150-450) k/uL Lymphocytes # 0.5 L (1.0-4.8) k/uL PT (9.0-12.0) sec INR (<1.2) APTT (22.0-30.0) sec ABG pO2 (83-108) mmHg ABG HCO3 (21-25) mmol/L ABG Total CO2 (19-24) mmol/L ABG O2 Saturation (94-97) % Sodium 135 L (137-145) mmol/L BUN 40 H (9-20) mg/dL Glucose 137 H (74-99) mg/dL POC Glucose (mg/dL) 119 H (70-110) mg/dL Calcium 6.3 L* (8.4-10.2) mg/dL Delta Bilirubin 0.8 H (0.0-0.2) mg/dL AST 282 H (17-59) U/L ALT 140 H (4-49) U/L Alkaline Phosphatase 292 H (38-126) U/L Albumin 3.3 L (3.5-5.0) g/dL Procalcitonin (0.02-0.09) ng/mL 01/05/23 01/05/23 Range/Units 05:59 06:25 RBC (4.30-5.90) m/uL Hgb (13.0-17.5) gm/dL Hct (39.0-53.0) % Plt Count (150-450) k/uL Lymphocytes # (1.0-4.8) k/uL PT (9.0-12.0) sec INR (<1.2) APTT (22.0-30.0) sec ABG pO2 61 L (83-108) mmHg ABG HCO3 27 H (21-25) mmol/L ABG Total CO2 28 H (19-24) mmol/L ABG O2 Saturation 92.9 L (94-97) % Sodium (137-145) mmol/L BUN (9-20) mg/dL Glucose (74-99) mg/dL POC Glucose (mg/dL) 144 H (70-110) mg/dL Calcium (8.4-10.2) mg/dL Delta Bilirubin (0.0-0.2) mg/dL AST (17-59) U/L ALT (4-49) U/L Alkaline Phosphatase (38-126) U/L Albumin (3.5-5.0) g/dL Procalcitonin (0.02-0.09) ng/mL Assessment and Plan Plan: Assessment and Plan Assessment: Acute hypoxic respiratory failure with multilobar pneumonia more so on the right upper lobe/right middle lobe area, improving with IV Zosyn. The patient became progressively more hypoxic. A repeat CTA of the chest was done that showed no evidence of any pulmonary embolism. There was some residual groundglass pulmonary infiltrates in the right upper lobe and the right lower lobe in addition to extensive atelectatic change in lung bases bilaterally. There is background emphysema. The patient is currently on BiPAP at pressure 14/10 with an FiO2 of 100%. Shortness of breath secondary to above Diffuse skeletal pain involving the chest wall and back. Bone scan did reveal marked heterogenous uptake involving the bilateral rib cage, vertebral column, pelvis and calvarium appears to correspond to abnormal marrow appearance of the visualized osseous structures on CAT scan. Suspect malignancy. Carcinoembryonic antigen 4441. CA 199 antigen 69.5. Colonoscopy from 12/23/2022 revealed a 5 mm cecal and a 1 cm ascending colon polyps status post biopsies. Pathology pending. No masses identified. He will need a liver biopsy. Xarelto, Aspirin and Plavix remain on hold. Computed tomography scan of the abdomen revealed innumerable small nodules throughout the liver. Heterogenous appearance to the osseous structures. Given the liver findings, correlate for potential infiltrative disease or diffuse osseous metastatic disease. CT angiogram from 12/26/2022 ruled out pulmonary embolism. Abdominal distention with possible constipation and fecal debris is in the right colon. The transverse and the left side is also dilated. Hypercalcemia. Received Zometa. Calcium level improved. Left lower lobe pulmonary nodule measuring 1.5 cm, will need an outpatient PET CT and further investigation. Probable metastatic disease to the lung. Coronary artery disease. Vascular disease with a previous fem-pop bypass surgery. Bilateral carotid endarterectomies. Coronary artery disease and coronary stenting. Previous history of CVA. Previous history of DVT of the left lower extremity. Previous history of Covid 19 infection in February 2021. Hypertension. Hyperlipidemia. Abnormal LFTs with cholelithiasis without evidence of cholecystitis. History of nephrolithiasis. Plan: Reviewed the CTA of the chest Keep the patient on BiPAP 14/10 cm of water and dropped FiO2 down to 80% The hypoxemia is out of proportion to the findings on the chest x-ray. And the CAT scan findings Continue IV Zosyn Continue IV Lasix Unable to do the MRI of the liver at this point in time and this can be done at later stage Calcium level is normalized Continue laxatives regarding abdominal distention. Considered an enema if there is no bowel movement activity. He is currently on senna and Colace We'll continue with oncology Obviously malignancy workup can be also on an outpatient basis once the patient is more stable and oxygen patient is further improved. She the patient will need a PET/CT We'll continue to follow Condition is critical and the patient will be kept in the ICU for now Time with Patient: Less than 30
--- NOTE | 2023-01-05 10:50 | P.PCN ---
Date of Procedure: 01/05/23 Preoperative Diagnosis: Acute hypoxic respiratory failure Postoperative Diagnosis: Same Procedure(s) Performed: Central line Anesthesia: regional Surgeon: Stephanie Thomas Condition: critical Disposition: ICU Operative Findings: Indication: Hemodynamic monitoring/Intravenous access. A time-out was completed verifying correct patient, procedure, site, positioning, and implant(s) or special equipment if applicable. The patient was placed in a dependent position appropriate for central line placement based on the vein to be cannulated. The patients right groin groin was prepped and draped in sterile fashion. 1% Lidocaine was used to anesthetize the surrounding skin area. A triple lumen 9F Cordis catheter was introduced into the right common femoral vein using Seldinger technique. The catheter was threaded smoothly over the guide wire and appropriate blood return was obtained. Each lumen of the catheter was evacuated of air and flushed with sterile saline. The catheter was then sutured in place to the skin and a sterile dressing applied. Perfusion to the extremity distal to the point of catheter insertion was checked and found to be adequate. The patient tolerated the procedure well and there were no complications.
--- NOTE | 2023-01-05 11:08 | P.PN ---
Subjective 67-year-old male was admitted to the hospital with complaints of abdominal pain and found to have cholelithiasis and cholecystitis. Patient also has hypercalcemia. 12/20/2022 Patient is currently lying in the bed. Awake alert and oriented x3. Anxious. Complains of both right upper and and left upper quadrant abdominal pain below the rib cage. Also complaining of back pain. No complaints of nausea vomiting. Patient underwent bone scan today. Due to hypercalcemia. Oncology and nephrology is on board. Laboratory data showed WBC 10.8 hemoglobin 15.1 and platelets 132 BUN 31.4 and creatinine 1.2 and bicarb level is 20.4 anion gap 14.6. Calcium level 12.6. Tumor markers were ordered. 12/21/2022 Patient is currently lying in bed. Awake alert and oriented x3. On oxygen at 4 L via nasal cannula. Still complains of pain below the rib cage. Bone scan was done yesterday showed a markedly heterogenous uptake involving the bilateral rib cage, vertebral column pelvis and calvarium appears to correspond to abnormal marrow appearance of the visualized osseous structures of the CAT scan. Suspect occult malignancy. Otherwise patient is being continued on IV Solu-Medrol DuoNebs and antibiotics and home Zosyn. Also on anticoagulation with Xarelto. Laboratory data showed WBC 8.2 hemoglobin 14.1 and platelets 119 Sodium 138 potassium 4.6 chloride 105 bicarb is 28 BUN 24 and creatinine 1.07 AST 110 ALT 90 alk phos 160. 12/22/2022 Patient is currently lying in bed. Complains of pain. Currently on [place] and morphine sustained-release was ordered. IR guided biopsy of the liver lesion could not be done due to patient being on anticoagulation. Oncology recommends endoscopic evaluation at this time. Otherwise CT of the abdomen pelvis done yesterday showed extensive 1 to 2 cm nodules diffusely throughout the left and right lobes of the liver suspicious for metastatic disease. CEA level is elevated. Laboratory data reviewed. 2022 Patient was admitted to the hospital due to bilateral rib cage pain and hypercalcemia and work-up in process for malignancy. Currently lying in the bed. Awake alert and oriented. No complaints of fever or chills. Currently on 4 L via nasal cannula. Continued on prednisone 30 mg daily. Also, DuoNebs and anticoagulation. Patient is scheduled for EGD and colonoscopy today. Otherwise cultures showed no growth. Patient is off antibiotics currently. Laboratory data showed WBC 8.1 hemoglobin 13.6 and platelets 124 BUN 19.3 and creatinine 0.7. Calcium level came down to 8.5. 12/24/2022 Patient is today had EGD and colonoscopy showing small hiatal hernia and cecal polyp which was removed. No other significant abnormality. Patient had repeat CT of the abdomen and pelvis today showing multiple nodules of the liver suspicious for liver cirrhosis versus metastatic disease area Heterogenous appearance of the osseous structures suspicious for metastatic disease. Moderate to severe stenosis of bilateral iliac arteries and right renal artery. As well as SMA. Cholelithiasis and diverticulitis. Prostate gland calcification 1.1 cm. 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 There was possible to discharge and the patient and do the procedure as an outpatient and follow-up with oncologist as an outpatient on , however patient still complaining of from severe bilateral rib cage pain and tenderness related most likely due to metastatic disease. Upon consult is obtained. Also patient most likely will have biopsy next week. Discussed with staff 12/25/2022 Patient today looks less lethargic and sitting up in chair, however he is more short of breath and Solu-Medrol is adequate. Repeat chest x-ray showed possible right lower pneumonia and Zosyn is added. proCalcitonin is pending. Also liver biopsy is pending 12/26/2022 pt is still lethargic but alert and awake , lying in bed with generalized weakness, he say his chest and rib cage pain is there but feels tolerable he remains on zosyn and solumedrol 40 mg pending [facility]: neg for PE 12/27/2022 pt clinically looks similar to the last few day, somewhat lewthargic and week , slighly tachypneic due to rib cage pain , tumour mass, and possible fluid overload. he is on 5 L of O2 via nasal cannula he supposed to get liver biopsy but per oncology input this may not be feasable as per notes from the IR team . other options are PET scan which is typically do ne as outpatient usually, or diagnostic thoracocentasis, we will defer to oncology team the decision on how to obtain the tissue diagnosis pt got one dose of lasix today which looks it helped him a little bit he is on zosyn and solumedrol 40 mg at bed side and all their questions were answered 12/28/2022 No significant change, still tired and weak . Other that he is hemodynamically stable. No new complaint. Patient remains on Zosyn. IV Solu-Medrol switched to prednisone 20 mg. That looks like patient cannot get liver biopsy per IR team. We will discuss with hematology/oncology team further recommendation and the next step in the diagnosis. 12/29/2022 Patient awake alert does not look in much distress, maybe mild oral no respiratory distress, somewhat tachypneic. Last that his oxygen requirement went up and currently he is on high flow nasal cannula with a flow rate of 55 L/m and FiO2 of 100%. Repeated chest x-ray showing no much change from previous still has patchy infiltrates on both sides, transected looks even slightly better on radiology notes. Steroids has been bumped up to 60 mL again this morning. Also she remains on Zosyn. Also patient has some abdominal distention but he tolerates that well, no abdominal pain and tenderness or vomiting. He is passing flatus but he complains from constipation over the last few days. Patient is not to take narcotic pain medication and he is on senna only therefore we added MiraLAX when necessary and Colace with a close monitoring. Oncology team is working on obtaining a biopsy diagnosis for the patient prior to discharge or plan for that. Patient may benefit from PET scan inpatient per oncology team. Discussed with staff Resume of the care of the patient on 01/03/2023 Patient still hypoxic but improving, and oxygen requirements down to 15 L/m. He is lying in bed with no significant respiratory distress, he reports improved in breathing. No cough, no significant chest pain He has right-sided chest pain related to metastatic disease since admission and directed as it/stent and it looks controlled with fentanyl and when necessary oxycodone. Patient reports having adequate bowel movements and is agreeable with the stool softeners. He remains on Zosyn. Also he is on high-dose IV Solu-Medrol 60 mg -Lasix 40 mg twice daily added yesterday Liver biopsy could not be obtained because of the small lesion per IR, hematology/oncology team saw the case 01/04/2023 Patient today is more dyspneic and lethargic. His oxygen requirement went to 30 L/m, and was 15 with a permanent this morning. Interestingly chest x-ray showing improvement in her radiation. he Is still on Zosyn, IV Lasix for 2 without twice daily and salmederol 60 mg Check labs in the morning 01/05/2023 Patient yesterday developed more respiratory distress and A-TEAM was called for him for hypoxia and patient was eventually transferred to the ICU for further management Patient was placed on BiPAP and while in the ICU his requiring more tense sitting this morning, he was 14/10 with FiO2 of 100%. Repeat chest x-ray and CTA of the chest showed no pulmonary embolism and the groundglass opacity in the right upper lobe and the right lower lobe. Pro- calcitonin is mildly elevated. Patient has been on Zosyn for almost 10 days on continue. Reason IV Solu-Medrol 60 mg. He is on Lasix 40 mg twice daily. Discussed with staff Prognosis guarded Objective - Vital Signs Vital signs: Vital Signs Temp 98.5 F 01/05/23 08:00 Pulse 70 01/05/23 10:00 Resp 13 01/05/23 10:00 BP 113/66 01/05/23 10:00 Pulse Ox 93 L 01/05/23 10:00 FiO2 100 01/05/23 09:00 Intake & Output 01/04/23 01/05/23 01/05/23 18:59 06:59 18:59 Intake Total 290 440 490 Output Total 550 1100 350 Balance -260 -660 140 Weight 99.6 kg Intake: IV 40 440 140 0.9 40 240 40 Calcium Gluconate in NaCl 100 2 gm In Saline 1 100ml. bag @ 100 mls/hr IVPB ONCE ONE Rx#:[id number] Piperacillin-Tazobactam 3 100 100 .375 gm In Sodium Chloride 0.9% 100 ml @ 25 mls/hr IVPB Q8H [facility] Rx#: [id number] Intake, IV Titration 50 Amount Piperacillin-Tazobactam 3 50 .375 gm In Sodium Chloride 0.9% 100 ml @ 25 mls/hr IVPB Q8H [facility] Rx#: [id number] Oral 200 350 Output: Urine 550 1100 350 Other: Voiding Method Indwelling Catheter Indwelling Catheter - Exam -GENERAL: The patient is alert and oriented x3, less lethargic not in any acute distress. Well developed, well nourished. HEENT: Pupils are round and equally reacting to light. EOMI. No scleral icterus. No conjunctival pallor. Normocephalic, atraumatic. No pharyngeal erythema. No thyromegaly. CARDIOVASCULAR: S1 and S2 present. No murmurs, rubs, or gallops. -PULMONARY: Chest is clear to auscultation, no wheezing , no crackles. Bilateral rib care teaching tenderness ABDOMEN: Soft, nontender, nondistended, normoactive bowel sounds. No palpable organomegaly. MUSCULOSKELETAL: No joint swelling or deformity. EXTREMITIES: No cyanosis, clubbing, or pedal edema. NEUROLOGICAL: Gross neurological examination did not reveal any focal deficits. SKIN: No rashes. no petechiae. - Labs CBC & Chem 7: 01/05/23 04:33 01/05/23 04:33 Labs: Abnormal Lab Results - Last 24 Hours (Table) 01/04/23 01/04/23 01/04/23 Range/Units 11:43 12:57 15:05 RBC 2.99 L (4.30-5.90) m/uL Hgb 10.1 L (13.0-17.5) gm/dL Hct 28.9 L (39.0-53.0) % Plt Count 95 L (150-450) k/uL Lymphocytes # 0.7 L (1.0-4.8) k/uL PT (9.0-12.0) sec INR (<1.2) APTT (22.0-30.0) sec ABG pO2 (83-108) mmHg ABG HCO3 (21-25) mmol/L ABG Total CO2 (19-24) mmol/L ABG O2 Saturation (94-97) % Sodium (137-145) mmol/L BUN (9-20) mg/dL Glucose (74-99) mg/dL POC Glucose (mg/dL) 145 H 137 H (70-110) mg/dL Calcium (8.4-10.2) mg/dL Delta Bilirubin (0.0-0.2) mg/dL AST (17-59) U/L ALT (4-49) U/L Alkaline Phosphatase (38-126) U/L Albumin (3.5-5.0) g/dL Procalcitonin (0.02-0.09) ng/mL 01/04/23 01/04/23 01/04/23 Range/Units 15:05 17:47 18:08 RBC (4.30-5.90) m/uL Hgb (13.0-17.5) gm/dL Hct (39.0-53.0) % Plt Count (150-450) k/uL Lymphocytes # (1.0-4.8) k/uL PT 12.1 H (9.0-12.0) sec INR 1.2 H (<1.2) APTT 36.9 H (22.0-30.0) sec ABG pO2 (83-108) mmHg ABG HCO3 (21-25) mmol/L ABG Total CO2 (19-24) mmol/L ABG O2 Saturation (94-97) % Sodium (137-145) mmol/L BUN (9-20) mg/dL Glucose (74-99) mg/dL POC Glucose (mg/dL) 122 H (70-110) mg/dL Calcium (8.4-10.2) mg/dL Delta Bilirubin (0.0-0.2) mg/dL AST (17-59) U/L ALT (4-49) U/L Alkaline Phosphatase (38-126) U/L Albumin (3.5-5.0) g/dL Procalcitonin 0.17 H (0.02-0.09) ng/mL 01/04/23 01/05/23 01/05/23 Range/Units 20:05 04:33 04:33 RBC 3.03 L (4.30-5.90) m/uL Hgb 9.9 L (13.0-17.5) gm/dL Hct 29.1 L (39.0-53.0) % Plt Count 97 L (150-450) k/uL Lymphocytes # 0.5 L (1.0-4.8) k/uL PT (9.0-12.0) sec INR (<1.2) APTT (22.0-30.0) sec ABG pO2 (83-108) mmHg ABG HCO3 (21-25) mmol/L ABG Total CO2 (19-24) mmol/L ABG O2 Saturation (94-97) % Sodium 135 L (137-145) mmol/L BUN 40 H (9-20) mg/dL Glucose 137 H (74-99) mg/dL POC Glucose (mg/dL) 119 H (70-110) mg/dL Calcium 6.3 L* (8.4-10.2) mg/dL Delta Bilirubin 0.8 H (0.0-0.2) mg/dL AST 282 H (17-59) U/L ALT 140 H (4-49) U/L Alkaline Phosphatase 292 H (38-126) U/L Albumin 3.3 L (3.5-5.0) g/dL Procalcitonin (0.02-0.09) ng/mL 01/05/23 01/05/23 Range/Units 05:59 06:25 RBC (4.30-5.90) m/uL Hgb (13.0-17.5) gm/dL Hct (39.0-53.0) % Plt Count (150-450) k/uL Lymphocytes # (1.0-4.8) k/uL PT (9.0-12.0) sec INR (<1.2) APTT (22.0-30.0) sec ABG pO2 61 L (83-108) mmHg ABG HCO3 27 H (21-25) mmol/L ABG Total CO2 28 H (19-24) mmol/L ABG O2 Saturation 92.9 L (94-97) % Sodium (137-145) mmol/L BUN (9-20) mg/dL Glucose (74-99) mg/dL POC Glucose (mg/dL) 144 H (70-110) mg/dL Calcium (8.4-10.2) mg/dL Delta Bilirubin (0.0-0.2) mg/dL AST (17-59) U/L ALT (4-49) U/L Alkaline Phosphatase (38-126) U/L Albumin (3.5-5.0) g/dL Procalcitonin (0.02-0.09) ng/mL Assessment and Plan Assessment: Liver cirrhosis, cannot rule out malignancy given multiple nodules and will require liver biopsy Bilateral rib cage pain and tenderness related to possible metastatic osseous disease. Hypercalcemia and pain below the rib cage and also back pain. Malignancy work- up in process. Bone scan showed a markedly heterogenous uptake involving the bilateral rib cage, vertebral column pelvis and calvarium appears to correspond to abnormal marrow appearance of the visualized osseous structures of the CAT scan. Suspect occult malignancy. COPD with no exacerbation Left lower lobe pulmonary nodule measuring 1.5 cm. Outpatient PET scan recommended by pulmonary. Coronary artery disease with prior history of stent placement History of CVA Peripheral vascular disease with previous history of femoropopliteal bypass surg kristen. Bilateral carotid endarterectomies History of DVT left lower extremity History of CVA/TIA Hypertension Hyperlipidemia Elevated liver enzymes and cholelithiasis without evidence of cholecystitis. History of nephrolithiasis Plan: Continue with ICU management Consult pain management is appreciated and patient currently is on fentanyl and oxycodone when necessary. Started on Zosyn and IV Solu-Medrol Continue with IV Lasix Several consultants on the case including hematology/oncology, pulmonary service Plan for patient cannot get liver biopsy. consultants on the case including hematology/oncology, pulmonary service and GI service. Labs and medication were reviewed.. Continue same treatment. Continue with symptomatic treatment. Resume home medication. Monitor labs and vitals. DVT and GI prophylaxis. Further recommendations as per clinical course of the p atient DVT prophylaxis: Subcutaneous heparin GI Prophylaxis: Ppi PT/OT: Pending Prognosis is guarded
[2023-01-05 11:32] LABS: Glucose,Whole Blood 145 mg/dL (70-110)
[2023-01-05 16:45] LABS: Glucose,Whole Blood 152 mg/dL (70-110)
--- NOTE | 2023-01-05 17:35 | P.PN ---
Subjective Progress Note Date: 01/05/23 Principal diagnosis: Abdominal pain. Liver lesions. In follow-up today patient is seen in the ICU. He was transferred here yesterday when his oxygen saturation was noted to be low 80s. He is currently on a BiPAP. He has questions about "what is going on". Objective - Vital Signs Vital signs: Vital Signs Temp 98.5 F 01/05/23 08:00 Pulse 73 01/05/23 13:00 Resp 12 01/05/23 13:00 BP 106/61 01/05/23 13:00 Pulse Ox 91 L 01/05/23 13:00 FiO2 85 01/05/23 12:28 Intake & Output 01/04/23 01/05/23 01/05/23 18:59 06:59 18:59 Intake Total 290 440 510 Output Total 550 1100 490 Balance -260 -660 20 Weight 99.6 kg Intake: IV 40 440 160 0.9 40 240 60 Calcium Gluconate in NaCl 100 2 gm In Saline 1 100ml. bag @ 100 mls/hr IVPB ONCE ONE Rx#:[id number] Piperacillin-Tazobactam 3 100 100 .375 gm In Sodium Chloride 0.9% 100 ml @ 25 mls/hr IVPB Q8H [facility] Rx#: [id number] Intake, IV Titration 50 Amount Piperacillin-Tazobactam 3 50 .375 gm In Sodium Chloride 0.9% 100 ml @ 25 mls/hr IVPB Q8H [facility] Rx#: [id number] Oral 200 350 Output: Urine 550 1100 490 Other: Voiding Method Indwelling Catheter Indwelling Catheter - Constitutional General appearance: Present: cooperative, mild distress, obese - EENT Eyes: Present: anicteric sclerae, EOMI ENT: Present: hearing grossly normal - Respiratory Respiratory: bilateral: diminished, other (Weak inspiratory effort, bloated abdo men is restricting diaphragm movement) - Cardiovascular Rhythm: regular - Peripheral edema leg Peripheral Edema: bilateral: Trace - Gastrointestinal General gastrointestinal: Present: distended - Integumentary Integumentary: Present: normal - Neurologic Neurologic: Present: CNII-XII intact - Musculoskeletal Musculoskeletal: Present: generalized weakness - Psychiatric Psychiatric: Present: A&O x's 3, appropriate affect, intact judgment & insight - Labs CBC & Chem 7: 01/05/23 04:33 01/05/23 04:33 Labs: Abnormal Lab Results - Last 24 Hours (Table) 01/04/23 01/04/23 01/04/23 Range/Units 15:05 15:05 17:47 RBC 2.99 L (4.30-5.90) m/uL Hgb 10.1 L (13.0-17.5) gm/dL Hct 28.9 L (39.0-53.0) % Plt Count 95 L (150-450) k/uL Lymphocytes # 0.7 L (1.0-4.8) k/uL PT 12.1 H (9.0-12.0) sec INR 1.2 H (<1.2) APTT 36.9 H (22.0-30.0) sec ABG pO2 (83-108) mmHg ABG HCO3 (21-25) mmol/L ABG Total CO2 (19-24) mmol/L ABG O2 Saturation (94-97) % Sodium (137-145) mmol/L BUN (9-20) mg/dL Glucose (74-99) mg/dL POC Glucose (mg/dL) 122 H (70-110) mg/dL Calcium (8.4-10.2) mg/dL Delta Bilirubin (0.0-0.2) mg/dL AST (17-59) U/L ALT (4-49) U/L Alkaline Phosphatase (38-126) U/L Albumin (3.5-5.0) g/dL Procalcitonin (0.02-0.09) ng/mL 01/04/23 01/04/23 01/05/23 Range/Units 18:08 20:05 04:33 RBC 3.03 L (4.30-5.90) m/uL Hgb 9.9 L (13.0-17.5) gm/dL Hct 29.1 L (39.0-53.0) % Plt Count 97 L (150-450) k/uL Lymphocytes # 0.5 L (1.0-4.8) k/uL PT (9.0-12.0) sec INR (<1.2) APTT (22.0-30.0) sec ABG pO2 (83-108) mmHg ABG HCO3 (21-25) mmol/L ABG Total CO2 (19-24) mmol/L ABG O2 Saturation (94-97) % Sodium (137-145) mmol/L BUN (9-20) mg/dL Glucose (74-99) mg/dL POC Glucose (mg/dL) 119 H (70-110) mg/dL Calcium (8.4-10.2) mg/dL Delta Bilirubin (0.0-0.2) mg/dL AST (17-59) U/L ALT (4-49) U/L Alkaline Phosphatase (38-126) U/L Albumin (3.5-5.0) g/dL Procalcitonin 0.17 H (0.02-0.09) ng/mL 01/05/23 01/05/23 01/05/23 Range/Units 04:33 05:59 06:25 RBC (4.30-5.90) m/uL Hgb (13.0-17.5) gm/dL Hct (39.0-53.0) % Plt Count (150-450) k/uL Lymphocytes # (1.0-4.8) k/uL PT (9.0-12.0) sec INR (<1.2) APTT (22.0-30.0) sec ABG pO2 61 L (83-108) mmHg ABG HCO3 27 H (21-25) mmol/L ABG Total CO2 28 H (19-24) mmol/L ABG O2 Saturation 92.9 L (94-97) % Sodium 135 L (137-145) mmol/L BUN 40 H (9-20) mg/dL Glucose 137 H (74-99) mg/dL POC Glucose (mg/dL) 144 H (70-110) mg/dL Calcium 6.3 L* (8.4-10.2) mg/dL Delta Bilirubin 0.8 H (0.0-0.2) mg/dL AST 282 H (17-59) U/L ALT 140 H (4-49) U/L Alkaline Phosphatase 292 H (38-126) U/L Albumin 3.3 L (3.5-5.0) g/dL Procalcitonin (0.02-0.09) ng/mL 01/05/23 Range/Units 11:30 RBC (4.30-5.90) m/uL Hgb (13.0-17.5) gm/dL Hct (39.0-53.0) % Plt Count (150-450) k/uL Lymphocytes # (1.0-4.8) k/uL PT (9.0-12.0) sec INR (<1.2) APTT (22.0-30.0) sec ABG pO2 (83-108) mmHg ABG HCO3 (21-25) mmol/L ABG Total CO2 (19-24) mmol/L ABG O2 Saturation (94-97) % Sodium (137-145) mmol/L BUN (9-20) mg/dL Glucose (74-99) mg/dL POC Glucose (mg/dL) 145 H (70-110) mg/dL Calcium (8.4-10.2) mg/dL Delta Bilirubin (0.0-0.2) mg/dL AST (17-59) U/L ALT (4-49) U/L Alkaline Phosphatase (38-126) U/L Albumin (3.5-5.0) g/dL Procalcitonin (0.02-0.09) ng/mL - Imaging and Cardiology Chest x-ray: report reviewed CT scan - chest: report reviewed Assessment and Plan (1) Liver lesion Current Visit: Yes Status: Acute Priority: High Code(s): K76.9 - LIVER DISEASE, UNSPECIFIED SNOMED Code(s): 226624692 (2) Abdominal pain Current Visit: Yes Status: Acute Priority: High Code(s): R10.9 - UNSPECIFIED ABDOMINAL PAIN SNOMED Code(s): 57006984 (3) Elevated tumor markers Current Visit: Yes Status: Acute Priority: Medium Code(s): R97.8 - OTHER ABNORMAL TUMOR MARKERS SNOMED Code(s): 130814147 (4) Hypercalcemia Current Visit: Yes Status: Resolved Priority: High Code(s): E83.52 - HYPERCALCEMIA SNOMED Code(s): 04807170 Plan: Liver lesion -Outpatient plans for biopsy-cancelled at this time as pt is not able to position. -MRI of the liver unable to be done due to resp status -CEA elevated at 4441 -Patient do understand that there are concerns for malignancy. Now contending with pt resp status as a barrier to imaging and biopsy. -Aspirin has been held -EGD and colonoscopy completed, cecal polyp and ascending colon polyp. Pathology reporting tubular adenoma Abdominal pain -Pain mgmt consulted and managing. -Buttocks/coccyx pain from laying and pt not being able to adjust his body weight himself. He is being positioned by staff -Pt being treated for constipation. Possible enema today. Shortness of breath -On bipap now, low O2 cont. -CXR from today reports basilar atelectasis favored over pneumonia, stable, cont inued improvement and resolution of right upper lobe infiltrate. -Pulmonary following Hypercalcemia-resolved -Treated with calcitonin and zometa. -PTH significantly low, 5.4. PTHrP is normal. -Most likely hypercalcemia of malignancy, resolved with treatment. Will recur so, cont to monitor Ca++ levels How long conversation with patient and his . At this time, what is going on in the liver is not most pressing concern. Explained to him that currently his respiratory status is the most critical thing. He had a CTA was negative for PE, positive for pulmonary hypertension moderate COPD, right upper lobe and right lower lobe pneumonia. Chest x-rays revealing bilateral infiltrates, progressive in the right upper lobe. Patient's inability to move around is exacerbating the situation. I answered the questions to the best of my ability. I did defer them to the Critical Care team for more detailed information Time with Patient: Greater than 30
[2023-01-05 20:22] LABS: Glucose,Whole Blood 144 mg/dL (70-110)
[2023-01-05] MEDS: ATORVASTATIN 80 MG TAB PO SCH (20:29)
[2023-01-05] MEDS: amLODIPine 10 MG TAB PO SCH (20:30)
[2023-01-06] MEDS: PIPERACILLIN-TAZOBACTAM 3.375 GM in SODIUM CHLORIDE 0.9% 100 ML IVPB SCH ×3 (01:11→18:52)
[2023-01-06 04:02] LABS: HCT 25.6 % (39.0-53.0); HGB 8.7 gm/dL (13.0-17.5); MCH 32.7 pg (25.0-35.0); MCHC 34.1 g/dL (31.0-37.0); MCV 95.9 fL (80.0-100.0); RBC 2.67 m/uL (4.30-5.90); WBC 4.7 k/uL (3.8-10.6)
[2023-01-06 04:10] LABS: Platelet Count 81 k/uL (150-450)
[2023-01-06 04:39] LABS: Band Neutrophils % 38 %; Lymphocytes # (M) 0.61 k/uL (1.0-4.8); Monocytes # (M) 0.05 k/uL (0-1.0); Neutrophils % (M) 48 %; Nucleated Red Blood Cells 0 /100 WBC (0-0); Total Cells Counted 200
[2023-01-06 04:40] LABS: Toxic Granulation Present
[2023-01-06 05:43] LABS: African American GFR (CKD) 49 (>60 ml/min/1.73 sqM); Anion Gap 7 mmol/L; Blood Urea Nitrogen 56 mg/dL (9-20); Calcium 6.5 mg/dL (8.4-10.2); Carbon Dioxide 27 mmol/L (22-30); Chloride 102 mmol/L (98-107); Glucose 142 mg/dL (74-99); Non-African American GFR(CKD) 43 (>60 ml/min/1.73 sqM); Potassium 4.3 mmol/L (3.5-5.1); Sodium 136 mmol/L (137-145)
[2023-01-06] MEDS: methylPREDNISolone SOD SUCCI 125 MG/2 ML VIAL IV SCH ×3 (05:56→18:52)
[2023-01-06] MEDS: INSULIN ASPART (NovoLOG) 100 UNIT/ML VIAL SQ SCH ×4 (06:49→20:47)
[2023-01-06 07:00] LABS: Glucose,Whole Blood 149 mg/dL (70-110)
[2023-01-06] MEDS: MORPHINE SULFATE 4 MG/ML SYRINGE IVP PRN ×3 (07:08→21:07)
[2023-01-06] MEDS: BUDESONIDE 1 MG/2 ML NEBU INHALATION SCH ×2 (07:42→21:43)
[2023-01-06] MEDS: IPRATROPIUM-ALBUTEROL 3 ML NEB INHALATION SCH ×4 (07:43→21:42)
[2023-01-06] MEDS: FORMOTEROL FUMARATE 20 MCG/2 ML NEBU INHALATION SCH ×2 (07:43→21:43)
--- NOTE | 2023-01-06 07:54 | XR ---
EXAMINATION TYPE: XR chest 1V portable DATE OF EXAM: 01/06/2023 Comparison: 01/05/2023 Clinical History: 67-year-old male pneumonia Findings: Heart upper limits of normal in size. Diffuse interstitial densities appear to be increasing, similar patchy density right mid lung and medial right base. Density at the left base similar to slightly in creased. Impression: Patchy opacity right midlung and medial right base are similar. Patchy density at the left base appea rs to be increasing slightly. Interstitial prominence minimally increased as well.
[2023-01-06] MEDS: LOSARTAN 50 MG TAB PO SCH (09:04)
[2023-01-06] MEDS: METOPROLOL TARTRATE 25 MG TAB PO SCH ×2 (09:04→20:48)
[2023-01-06] MEDS: THIAMINE 100 MG TAB PO SCH (09:04)
[2023-01-06] MEDS: GABAPENTIN 300 MG CAP PO SCH (09:04)
[2023-01-06] MEDS: SENNOSIDES-DOCUSATE SODIUM 1 EACH TAB PO SCH ×2 (09:04→20:48)
[2023-01-06] MEDS: DOCUSATE 100 MG CAP PO SCH ×2 (09:04→20:49)
[2023-01-06] MEDS: BACLOFEN 10 MG TAB PO SCH ×2 (09:04→20:48)
[2023-01-06] MEDS: DULoxetine HCL 30 MG CAPSULE.DR PO SCH ×2 (09:05→20:48)
[2023-01-06] MEDS: FUROSEMIDE 10 MG/ML 4 ML VIAL IV SCH (09:05)
[2023-01-06] MEDS: PANTOPRAZOLE 40 MG/10 ML VIAL IV SCH ×2 (09:05→20:49)
[2023-01-06] MEDS: EZETIMIBE 10 MG TAB PO SCH (09:06)
--- NOTE | 2023-01-06 10:39 | P.PN ---
Subjective Progress Note Date: 01/06/23 67-year-old male patient was transferred to us from [facility] for diffuse pain. The pain is mainly across his chest and upper abdomen and across the rib cage addition to chronic back pain. Is known to have chronic dyspnea and the patient is noted COPD and a left lung pulmonary nodule that has been followed up on outpatient basis. Initially went to [facility] and his calcium level was noted to be elevated. Based on his ongoing symptoms, he was referred to us. His current calcium level is at 13. He did not have any previous issues with hypercalcemia. Is known to have COPD, pulmonary nodule, coronary artery disease and extensive peripheral vascular disease and the sruthi ent has undergone previous vascular bypass surgery and stenting to the lower extremities. He is also known to have previous history of DVT. Maintain on long-term anticoagulants. At the same time, the patient has hypertension, hyperlipidemia, obesity, chronic back pain and a recent MRI from August 2022 showed wedging of the L2 spine in the order of 15% without any acute fractures. There is also multilevel spondylitic changes and mildly prominent narrowing due to facet arthropathy and disc space narrowing at the level of L4-L5 and old compression fracture the level of L2. Mild edema in the anterior L3 vertebral and posterior L5 vertebral and there is no evidence of any significant lumbar s tenosis. The computed tomography scan of the abdomen and pelvis that was done in 09/22/2022 showed moderate to severe narrowing throughout the bilateral external iliac arteries and a stent in the superficial femoral artery was patent on the left. There was cholelithiasis and moderate atherosclerotic changes throughout the abdominal aorta and colonic diverticulosis. There are atelectatic changes in the right posterior base. On today's evaluation 01/03/2023, the patient remains hypoxic and the patient remains on 15 L of oxygen by nasal cannula high flow to maintain a saturation above 90%. He is still being investigated for an underlying malignancy as the patient has an elevated CEA level and he presented to us with hypercalcemia. The patient was treated for hypercalcemia and he was given a combination of calcitonin and Zometa. His PTH level is low and PTH related peptide still pending. He also has a liver lesion and he was supposed to undergo an MRI of his liver for better characterization of the liver mass and the patient was unable to tolerate to lay down flat. He had a chest x-ray was showing the development of a right midlung patchy airspace disease most on the right upper lobe and to also some airspace opacities in the left lung base concerning for pneumonia. Repeat chest x-ray was done and the patient showed improvement in the right upper lobe pulmonary infiltrate with bilateral lower lobe pulmonary infiltrates and small effusion. Lung volumes are essentially small. The patient remains on broad-spectrum antibiotics. The patient is on IV Zosyn for now. He is also having significant amount of edema lower extremity bilaterally and he remains on IV Lasix 40 mg every 12 hours. He remains on bronchodilators. Oncologist on the case. Final diagnoses not been achieved yet. On today's evaluation of 01/04/2023, the patient's condition is somewhat decom pensated. He was placed on 100% nonrebreather facemask in addition to the 15 L of oxygen by nasal cannula to maintain a saturation above 90%. I repeated the chest x-ray and there is evidence of bibasilar atelectasis and there is continued improvement and resolution of the right upper lobe pulmonary infiltrates. X-ray of the abdomen also showed some stable dilated bowel loops unchanged from previous evaluation. The transverse colon and the right colon appears to be dilated out of proportion to the left colon. Partial obstruction/ileus cannot be completely excluded. Extensive retained breathes in the right colon could be related to underlying constipation. The patient has no abdominal pain. Abdomen is slightly distended. The patient remains on diuretics. The patient is producing urine output. Continues to have significant amount of edema lower extremity bilaterally. Remains on IV Zosyn. Remains on IV Lasix. Remains on bronchodilators and steroids. On 01/05/2023, the patient is being seen in the intensive care unit. The patient got transferred to the ICU because of progressive hypoxemia. The patient was placed on a BiPAP and the patient is currently on BiPAP at a pres sure of 14/10 cm of water with FiO2 of 100%. A CT angiogram was done yesterday that showed no evidence of any pulmonary embolism. The CT angiogram showed atelectatic changes in lung bases bilaterally involving the lower lobes and some limited patchy groundglass pulmonary infiltrates and the right upper lobe and the right lower lobe in addition to some background emphysema. However, the abnormalities that were seen are not significant and the patient's hypoxemia remains out of proportion to the CAT scan findings. The patient was also demonstrated to have a T7 compression fracture with 50% height loss. 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 The patient remains on a combination of antibiotics and diuretics. The patient is currently on IV Zosyn and the patient is also receiving Lasix 40 mg IV every 12 hours. The patient remains in negative fluid balance of the lower extremity edema has been improving. The blood gas from today shows a pH of 7.44 with a pC O2 of 40 and pO2 of 61. BUN is at 40 with a creatinine of 1.1 and a sodium level is at 135. The white cell count of 5.5 with a hemoglobin of 9.9. Abdomen is still distended. If at some of the abdomen was done yesterday and it showed stable dilated bowel loops unchanged compared to the earlier x-ray of 01/02/2023. The bowel gas pattern is nonspecific. Transfers: And right colon does appear to be dilated out of proportion to the left. Partial obstruction is within depression diagnosis. Is also extensive retained degrees and stool and the right colon suggesting the possibility of constipation. The patient is currently on a combination of laxatives and the patient is currently receiving senna and Colace. He is awake and alert and communicating at this point in time. 01/06/2023, the patient is awake and alert and communicating. He was taken off the BiPAP and he was placed on a high flow 15 L in addition to nonrebreather facemask with a pulse ox of 94-95%. Chest x-ray findings remain unchanged and stable. No major events overnight. The patient continues to diurese. Urine ou tput is adequate for now. The patient remains on IV Lasix. BUN is at 56 with a creatinine of 1.6 and obviously diuresis needs to be held for now due to development of some prerenal azotemia. Sodiums of 136, potassium levels at 4.3, the bronchoscope was at 4.7 with a hemoglobin of 8.7. The patient remains on IV Zosyn. The abdomen is softer on today's evaluation. He passed a lot of gas yesterday. Objective - Vital Signs Vital signs: Vital Signs Temp 97.6 F 01/06/23 08:30 Pulse 70 01/06/23 10:00 Resp 18 01/06/23 10:00 BP 108/62 01/06/23 10:00 Pulse Ox 90 L 01/06/23 10:00 FiO2 75 01/06/23 07:43 Intake & Output 01/05/23 01/06/23 01/06/23 18:59 06:59 18:59 Intake Total 8837 363 5929 Output Total 645 565 400 Balance 385 -245 730 Weight 99.7 kg Intake: IV 280 320 150 0.9 180 220 50 Piperacillin-Tazobactam 3 100 100 100 .375 gm In Sodium Chloride 0.9% 100 ml @ 25 mls/hr IVPB Q8H [facility] Rx#: [id number] Oral 750 980 Output: Urine 645 565 400 Other: Voiding Method Indwelling Catheter Indwelling Catheter - Exam Gen. appearance obese, comfortable, no acute distress BMI 30.4 Currently on 15 L high flow in addition to nonrebreather facemask Head exam was generally normal. There was no scleral icterus or corneal arcus. Mucous membranes were moist. Neck was supple and without jugular venous distension, thyromegaly, or carotid bruits. Carotids were easily palpable bilaterally. There was no adenopathy. Lungs sounds are diminished bilaterally and the patient has scattered expiratory wheeze Cardiac exam revealed the PMI to be normally situated and sized. The rhythm was regular and no extrasystoles were noted during several minutes of auscultation. The first and second heart sounds were normal and physiologic splitting of the second heart sound was noted. There were no murmurs, rubs, clicks, or gallops. Abdominal exam revealed normal bowel sounds. The abdomen was soft, non-tender, and without masses, organomegaly, or appreciable enlargement of the abdominal aorta. Abdomen is distended with hypoactive bowel sounds. No direct tenderness. No rebound tenderness or guarding Examination of the extremities revealed easily palpable radial, femoral and pedal pulses. There was no cyanosis, clubbing or edema. Examination of the skin revealed no evidence of significant rashes, suspicious appearing nevi or other concerning lesions. Neurologically, the patient is awake and alert and the patient does not have any focal neurological deficit. Cranial nerves are essentially intact. - Labs CBC & Chem 7: 01/06/23 03:25 01/06/23 03:25 Labs: Abnormal Lab Results - Last 24 Hours (Table) 01/05/23 01/05/23 01/05/23 Range/Units 11:30 16:43 20:20 RBC (4.30-5.90) m/uL Hgb (13.0-17.5) gm/dL Hct (39.0-53.0) % Plt Count (150-450) k/uL Lymphocytes # (Manual) (1.0-4.8) k/uL Sodium (137-145) mmol/L BUN (9-20) mg/dL Creatinine (0.66-1.25) mg/dL Glucose (74-99) mg/dL POC Glucose (mg/dL) 145 H 152 H 144 H (70-110) mg/dL Calcium (8.4-10.2) mg/dL 01/06/23 01/06/23 01/06/23 Range/Units 03:25 03:25 06:59 RBC 2.67 L (4.30-5.90) m/uL Hgb 8.7 L (13.0-17.5) gm/dL Hct 25.6 L (39.0-53.0) % Plt Count 81 L (150-450) k/uL Lymphocytes # (Manual) 0.61 L (1.0-4.8) k/uL Sodium 136 L (137-145) mmol/L BUN 56 H (9-20) mg/dL Creatinine 1.66 H (0.66-1.25) mg/dL Glucose 142 H (74-99) mg/dL POC Glucose (mg/dL) 149 H (70-110) mg/dL Calcium 6.5 L (8.4-10.2) mg/dL Assessment and Plan Plan: Assessment and Plan Assessment: Acute hypoxic respiratory failure with multilobar pneumonia more so on the right upper lobe/right middle lobe area, improving with IV Zosyn. The patient became progressively more hypoxic. A repeat CTA of the chest was done that showed no evidence of any pulmonary embolism. There was some residual groundglass pulm onary infiltrates in the right upper lobe and the right lower lobe in addition to extensive atelectatic change in lung bases bilaterally. There is background emphysema. The patient is on 15 L with 100% nonrebreather facemask and a BiPAP as a discontinued. Chest x-ray findings remain unchanged. Shortness of breath secondary to above Diffuse skeletal pain involving the chest wall and back. Bone scan did reveal marked heterogenous uptake involving the bilateral rib cage, vertebral column, pelvis and calvarium appears to correspond to abnormal marrow appearance of the visualized osseous structures on CAT scan. Suspect malignancy. Carcinoembryonic antigen 4441. CA 199 antigen 69.5. Colonoscopy from 12/23/2022 revealed a 5 mm cecal and a 1 cm ascending colon polyps status post biopsies. Pathology pending. No masses identified. He will need a liver biopsy. Xarelto, Aspirin and Plavix remain on hold. Computed tomography scan of the abdomen revealed innumerable small nodules throughout the liver. Heterogenous appearance to the osseous structures. Given the liver findings, correlate for potential infiltrative disease or diffuse osseous metastatic disease. CT angiogram from 12/26/2022 ruled out pulmonary embolism. Abdominal distention with possible constipation and fecal debris is in the right colon. The transverse and the left side is also dilated. The patient is passing gas. He will receive an enema today Acute kidney injury, likely secondary to diuresis. Continues to have lower extremity edema bilaterally. Hypercalcemia. Received Zometa. Calcium level improved. Left lower lobe pulmonary nodule measuring 1.5 cm, will need an outpatient PET CT and further investigation. Probable metastatic disease to the lung. Coronary artery disease. Vascular disease with a previous fem-pop bypass surgery. Bilateral carotid endarterectomies. Coronary artery disease and coronary stenting. Previous history of CVA. Previous history of DVT of the left lower extremity. Previous history of Covid 19 infection in February 2021. Hypertension. Hyperlipidemia. Abnormal LFTs with cholelithiasis without evidence of cholecystitis. History of nephrolithiasis. Plan: Try a airvo high flow oxygen system Continue IV Zosyn Stop Lasix for the next 24 hours and monitor renal function Enema will be provided today Unable to do the MRI of the liver at this point in time and this can be done at later stage Calcium level is normalized Continue laxatives regarding abdominal distention. We'll continue with oncology Obviously malignancy workup can be also on an outpatient basis once the patient is more stable and oxygen patient is further improved. She the patient will need a PET/CT We'll continue to follow Condition is critical and the patient will be kept in the ICU for now Time with Patient: Less than 30
[2023-01-06] MEDS ORDERED: NA PHOS,M-B/NA PHOS,DI-BA 133 ML ENEMA RECTAL ONE (11:03)
[2023-01-06 11:51] LABS: Glucose,Whole Blood 179 mg/dL (70-110)
--- NOTE | 2023-01-06 12:43 | P.PN ---
Subjective Progress Note Date: 01/06/23 Principal diagnosis: Abdominal pain. Liver lesions. In follow-up today patient is seen in the ICU. Patient is very drowsy when seen today. Little difficult to arouse. VS on the monitor are stable, O2 sat low 90's. Objective - Vital Signs Vital signs: Vital Signs Temp 97.6 F 01/06/23 08:30 Pulse 77 01/06/23 11:49 Resp 9 L 01/06/23 11:00 BP 109/55 01/06/23 11:00 Pulse Ox 92 L 01/06/23 11:00 FiO2 85 01/06/23 11:33 Intake & Output 01/05/23 01/06/23 01/06/23 18:59 06:59 18:59 Intake Total 7289 716 8826 Output Total 645 565 650 Balance 385 -245 480 Weight 99.7 kg Intake: IV 280 320 150 0.9 180 220 50 Piperacillin-Tazobactam 3 100 100 100 .375 gm In Sodium Chloride 0.9% 100 ml @ 25 mls/hr IVPB Q8H [facility] Rx#: [id number] Oral 750 980 Output: Urine 645 565 650 Other: Voiding Method Indwelling Catheter Indwelling Catheter Indwelling Catheter - Constitutional General appearance: Present: no acute distress, obese - EENT Eyes: Present: anicteric sclerae - Respiratory Respiratory: bilateral: rales - Cardiovascular Rhythm: regular Heart sounds: normal: S1, S2 Abnormal Heart Sounds: Absent: systolic murmur, diastolic murmur, rub, S3 Gallop, S4 Gallop, click, other - Peripheral edema leg Peripheral Edema: bilateral: 2+, Pitting - Gastrointestinal General gastrointestinal: Present: distended, soft - Musculoskeletal Musculoskeletal: Present: generalized weakness - Labs CBC & Chem 7: 01/06/23 03:25 01/06/23 03:25 Labs: Abnormal Lab Results - Last 24 Hours (Table) 01/05/23 01/05/23 01/06/23 Range/Units 16:43 20:20 03:25 RBC 2.67 L (4.30-5.90) m/uL Hgb 8.7 L (13.0-17.5) gm/dL Hct 25.6 L (39.0-53.0) % Plt Count 81 L (150-450) k/uL Lymphocytes # (Manual) 0.61 L (1.0-4.8) k/uL Sodium (137-145) mmol/L BUN (9-20) mg/dL Creatinine (0.66-1.25) mg/dL Glucose (74-99) mg/dL POC Glucose (mg/dL) 152 H 144 H (70-110) mg/dL Calcium (8.4-10.2) mg/dL 01/06/23 01/06/23 01/06/23 Range/Units 03:25 06:59 11:50 RBC (4.30-5.90) m/uL Hgb (13.0-17.5) gm/dL Hct (39.0-53.0) % Plt Count (150-450) k/uL Lymphocytes # (Manual) (1.0-4.8) k/uL Sodium 136 L (137-145) mmol/L BUN 56 H (9-20) mg/dL Creatinine 1.66 H (0.66-1.25) mg/dL Glucose 142 H (74-99) mg/dL POC Glucose (mg/dL) 149 H 179 H (70-110) mg/dL Calcium 6.5 L (8.4-10.2) mg/dL - Imaging and Cardiology Chest x-ray: report reviewed Assessment and Plan (1) Liver lesion Current Visit: Yes Status: Acute Priority: High Code(s): K76.9 - LIVER DISEASE, UNSPECIFIED SNOMED Code(s): 635624030 (2) Abdominal pain Current Visit: Yes Status: Acute Priority: High Code(s): R10.9 - UNSPECIFIED ABDOMINAL PAIN SNOMED Code(s): 38180645 (3) Elevated tumor markers Current Visit: Yes Status: Acute Priority: Medium Code(s): R97.8 - OTHER ABNORMAL TUMOR MARKERS SNOMED Code(s): 061142533 (4) Hypercalcemia Current Visit: Yes Status: Resolved Priority: High Code(s): E83.52 - HYPERCALCEMIA SNOMED Code(s): 55596268 Plan: Liver lesion -Outpatient plans for biopsy-cancelled at this time as pt is not able to position, he is unstable and in ICU. -MRI of the liver unable to be done due to resp status -CEA elevated at 4441 -EGD and colonoscopy completed, cecal polyp and ascending colon polyp. Pathology reporting tubular adenoma Abdominal pain -Pain mgmt consulted and managing. -Buttocks/coccyx pain from laying and pt not being able to adjust his body weight himself. He is being positioned by staff -Pt being treated for constipation. Possible enema today. Shortness of breath -Persistent. -CXR from today reports stable findings on the right, slightly worse at left base. -Pulmonary following and treating Hypercalcemia-resolved -Treated with calcitonin and zometa. -NM bone scan report reads marked heterogeneous uptake in christy ribs, vertebral column, pelvis, calvarium and these correspond to abn marrow appearance on CT, could be metabolic vs occult malignancy. Pending biopsy of suspicious liver lesions. -PTH significantly low, 5.4. PTHrP is normal. -Most likely hypercalcemia of malignancy, resolved with treatment. Will recur if due to malignancy/without treatment of malignancy so, cont to monitor Ca++ levels
--- NOTE | 2023-01-06 13:03 | P.PN ---
Subjective Patient is seen for follow-up for acute kidney injury. He was initially being followed for hypercalcemia however his serum calcium had improved from 13.0 and was actually low at 6.5-6.3 g/dL recently. There is high suspicion for underlying malignancy with liver nodules and significantly elevated carcinoembryonic antigen. Biopsy of the liver nodules is on hold and to be scheduled as outpatient. Patient was transferred to the ICU for acute hypoxic respiratory failure. He is currently being diuresed. Serum creatinine increased to 1.6 mg/dL today from 0.8 on 01/03/2023. Blood pressure is noted to be low with systolic in the 80s and 90s yesterday. Patient is maintained Cozaar and Norvasc. Urine output at 70 - 50 ML per hour Currently not on any IV fluids. Maintained on BiPAP. Objective - Vital Signs Vital signs: Vital Signs Temp 97.6 F 01/06/23 08:30 Pulse 77 01/06/23 11:49 Resp 9 L 01/06/23 11:00 BP 109/55 01/06/23 11:00 Pulse Ox 92 L 01/06/23 11:00 FiO2 85 01/06/23 11:33 Intake & Output 01/05/23 01/06/23 01/06/23 18:59 06:59 18:59 Intake Total 7895 454 0307 Output Total 645 565 650 Balance 385 -245 480 Weight 99.7 kg Intake: IV 280 320 150 0.9 180 220 50 Piperacillin-Tazobactam 3 100 100 100 .375 gm In Sodium Chloride 0.9% 100 ml @ 25 mls/hr IVPB Q8H [facility] Rx#: [id number] Oral 750 980 Output: Urine 645 565 650 Other: Voiding Method Indwelling Catheter Indwelling Catheter Indwelling Catheter - Exam Awake, comfortable, in no acute distress Examination of the heart S1 and S2 Examination the lungs decreased breath sounds at the bases Abdomen is soft, mild tenderness left upper abdomen Examination of lower extremity shows no significant edema [employer] exam grossly intact - Labs CBC & Chem 7: 01/06/23 03:25 01/06/23 03:25 Labs: Abnormal Lab Results - Last 24 Hours (Table) 01/05/23 01/05/23 01/06/23 Range/Units 16:43 20:20 03:25 RBC 2.67 L (4.30-5.90) m/uL Hgb 8.7 L (13.0-17.5) gm/dL Hct 25.6 L (39.0-53.0) % Plt Count 81 L (150-450) k/uL Lymphocytes # (Manual) 0.61 L (1.0-4.8) k/uL Sodium (137-145) mmol/L BUN (9-20) mg/dL Creatinine (0.66-1.25) mg/dL Glucose (74-99) mg/dL POC Glucose (mg/dL) 152 H 144 H (70-110) mg/dL Calcium (8.4-10.2) mg/dL 01/06/23 01/06/23 01/06/23 Range/Units 03:25 06:59 11:50 RBC (4.30-5.90) m/uL Hgb (13.0-17.5) gm/dL Hct (39.0-53.0) % Plt Count (150-450) k/uL Lymphocytes # (Manual) (1.0-4.8) k/uL Sodium 136 L (137-145) mmol/L BUN 56 H (9-20) mg/dL Creatinine 1.66 H (0.66-1.25) mg/dL Glucose 142 H (74-99) mg/dL POC Glucose (mg/dL) 149 H 179 H (70-110) mg/dL Calcium 6.5 L (8.4-10.2) mg/dL Assessment and Plan Assessment: 1. Hypercalcemia rule out underlying malignancy. PTH is appropriately suppressed. CEA is significantly elevated and multiple liver nodules noted on abdominal CT. Biopsy is planned as outpatient. 2. Multilobar pneumonia 3. Multiple liver nodules suspicious of metastatic disease 4. Acute kidney injury, nonoliguric ATN secondary to low blood pressure. 5. Volume overload Plan: JESUS Rondon and Krishna Repeat labs in a.m. Discussed with pulmonary. Chest x-ray not suggestive of significant volume overload. Diuretics are currently on hold.
--- NOTE | 2023-01-06 13:20 | P.PN ---
Subjective Progress Note Date: 01/06/23 67-year-old male was admitted to the hospital with complaints of abdominal pain and found to have cholelithiasis and cholecystitis. Patient also has hypercalcemia. 12/20/2022 Patient is currently lying in the bed. Awake alert and oriented x3. Anxious. Complains of both right upper and and left upper quadrant abdominal pain below the rib cage. Also complaining of back pain. No complaints of nausea vomiting. Patient underwent bone scan today. Due to hypercalcemia. Oncology and nephrology is on board. Laboratory data showed WBC 10.8 hemoglobin 15.1 and platelets 132 BUN 31.4 and creatinine 1.2 and bicarb level is 20.4 anion gap 14.6. Calcium level 12.6. Tumor markers were ordered. 12/21/2022 Patient is currently lying in bed. Awake alert and oriented x3. On oxygen at 4 L via nasal cannula. Still complains of pain below the rib cage. Bone scan was done yesterday showed a markedly heterogenous uptake involving the bilateral rib cage, vertebral column pelvis and calvarium appears to correspond to abnormal marrow appearance of the visualized osseous structures of the CAT scan. Suspect occult malignancy. Otherwise patient is being continued on IV Solu-Medrol DuoNebs and antibiotics and home Zosyn. Also on anticoagulation with Xarelto. Laboratory data showed WBC 8.2 hemoglobin 14.1 and platelets 119 Sodium 138 potassium 4.6 chloride 105 bicarb is 28 BUN 24 and creatinine 1.07 AST 110 ALT 90 alk phos 160. 12/22/2022 Patient is currently lying in bed. Complains of pain. Currently on [place] and morphine sustained-release was ordered. IR guided biopsy of the liver lesion could not be done due to patient being on anticoagulation. Oncology recommends endoscopic evaluation at this time. Otherwise CT of the abdomen pelvis done yesterday showed extensive 1 to 2 cm nodules diffusely throughout the left and right lobes of the liver suspicious for metastatic disease. CEA level is elevated. Laboratory data reviewed. 2022 Patient was admitted to the hospital due to bilateral rib cage pain and hypercalcemia and work-up in process for malignancy. Currently lying in the bed. Awake alert and oriented. No complaints of fever or chills. Currently on 4 L via nasal cannula. Continued on prednisone 30 mg daily. Also, DuoNebs and anticoagulation. Patient is scheduled for EGD and colonoscopy today. Otherwise cultures showed no growth. Patient is off antibiotics currently. Laboratory data showed WBC 8.1 hemoglobin 13.6 and platelets 124 BUN 19.3 and creatinine 0.7. Calcium level came down to 8.5. 12/24/2022 Patient is today had EGD and colonoscopy showing small hiatal hernia and cecal polyp which was removed. No other significant abnormality. Patient had repeat CT of the abdomen and pelvis today showing multiple nodules of the liver suspicious for liver cirrhosis versus metastatic disease area Heterogenous appearance of the osseous structures suspicious for metastatic disease. Moderate to severe stenosis of bilateral iliac arteries and right renal artery. As well as SMA. Cholelithiasis and diverticulitis. Prostate gland calcification 1.1 cm. Left humeral head avascular necrosis with yearly subarticular collapse The plan for him is to get never biopsy however we need to hold Plavix and Eliquis prior to that. There was possible to discharge and the patient and do the procedure as an outpatient and follow-up with oncologist as an outpatient on , however patient still complaining of from severe bilateral rib cage pain and tenderness related most likely due to metastatic disease. Upon consult is obtained. Also patient most likely will have biopsy next week. Discussed with staff 12/25/2022 Patient today looks less lethargic and sitting up in chair, however he is more short of breath and Solu-Medrol is adequate. Repeat chest x-ray showed possible right lower pneumonia and Zosyn is added. proCalcitonin is pending. Also liver biopsy is pending 12/26/2022 pt is still lethargic but alert and awake , lying in bed with generalized we akness, he say his chest and rib cage pain is there but feels tolerable he remains on zosyn and solumedrol 40 mg pending [facility]: neg for PE 12/27/2022 pt clinically looks similar to the last few day, somewhat lewthargic and week , slighly tachypneic due to rib cage pain , tumour mass, and possible fluid overload. he is on 5 L of O2 via nasal cannula he supposed to get liver biopsy but per oncology input this may not be feasable as per notes from the IR team . other options are PET scan which is typically done as outpatient usually, or diagnostic thoracocentasis, we will defer to oncology team the decision on how to obtain the tissue diagnosis pt got one dose of lasix today which looks it helped him a little bit he is on zosyn and solumedrol 40 mg at bed side and all their questions were answered 12/28/2022 No significant change, still tired and weak . Other that he is hemodynamically stable. No new complaint. Patient remains on Zosyn. IV Solu-Medrol switched to prednisone 20 mg. That looks like patient cannot get liver biopsy per IR team. We will discuss with hematology/oncology team further recommendation and the next step in the diagnosis. 12/29/2022 Patient awake alert does not look in much distress, maybe mild oral no respiratory distress, somewhat tachypneic. Last that his oxygen requirement went up and currently he is on high flow nasal cannula with a flow rate of 55 L/m and FiO2 of 100%. Repeated chest x-ray showing no much change from previous still has patchy infiltrates on both sides, transected looks even slightly better on radiology notes. Steroids has been bumped up to 60 mL again this morning. Also she remains on Zo syn. Also patient has some abdominal distention but he tolerates that well, no abdominal pain and tenderness or vomiting. He is passing flatus but he complains from constipation over the last few days. Patient is not to take narcotic pain medication and he is on senna only therefore we added MiraLAX when necessary and Colace with a close monitoring. Oncology team is working on obtaining a biopsy diagnosis for the patient prior to discharge or plan for that. Patient may benefit from PET scan inpatient per oncology team. Discussed with staff Resume of the care of the patient on 01/03/2023 Patient still hypoxic but improving, and oxygen requirements down to 15 L/m. He is lying in bed with no significant respiratory distress, he reports improved in breathing. No cough, no significant chest pain He has right-sided chest pain related to metastatic disease since admission and directed as it/stent and it looks controlled with fentanyl and when necessary oxycodone. Patient reports having adequate bowel movements and is agreeable with the stool softeners. He remains on Zosyn. Also he is on high-dose IV Solu-Medrol 60 mg -Lasix 40 mg twice daily added yesterday Liver biopsy could not be obtained because of the small lesion per IR, hematology/oncology team saw the case 01/04/2023 Patient today is more dyspneic and lethargic. His oxygen requirement went to 30 L/m, and was 15 with a permanent this morning. Interestingly chest x-ray showing improvement in her radiation. he Is still on Zosyn, IV Lasix for 2 without twice daily and salmederol 60 mg Check labs in the morning 01/05/2023 Patient yesterday developed more respiratory distress and A-TEAM was called for him for hypoxia and patient was eventually transferred to the ICU for further management Patient was placed on BiPAP and while in the ICU his requiring more tense sitting this morning, he was 14/10 with FiO2 of 100%. Repeat chest x-ray and CTA of the chest showed no pulmonary embolism and the groundglass opacity in the right upper lobe and the right lower lobe. Pro- calcitonin is mildly elevated. Patient has been on Zosyn for almost 10 days on continue. Reason IV Solu-Medrol 60 mg. He is on Lasix 40 mg twice daily. Discussed with staff Prognosis guarded 01/06: Patient seen and everted bedside patient complains lethargic at this point patient is currently arousable on oxygen supplementation with nonrebreather. Noted to have elevated creatinine nephrology following critical care team following Objective - Vital Signs Vital signs: Vital Signs Temp 97.6 F 01/06/23 08:30 Pulse 77 01/06/23 11:49 Resp 9 L 01/06/23 11:00 BP 109/55 01/06/23 11:00 Pulse Ox 92 L 01/06/23 11:00 FiO2 85 01/06/23 13:04 Intake & Output 01/05/23 01/06/23 01/06/23 18:59 06:59 18:59 Intake Total 2959 683 3209 Output Total 645 565 650 Balance 385 -245 480 Weight 99.7 kg Intake: IV 280 320 150 0.9 180 220 50 Piperacillin-Tazobactam 3 100 100 100 .375 gm In Sodium Chloride 0.9% 100 ml @ 25 mls/hr IVPB Q8H [facility] Rx#: [id number] Oral 750 980 Output: Urine 645 565 650 Other: Voiding Method Indwelling Catheter Indwelling Catheter Indwelling Catheter - Exam PHYSICAL EXAMINATION: GENERAL: The patient is alert and oriented x o, disoriented and minimally responsive on nasal cannula and nonrebreather CARDIOVASCULAR: S1 and S2 present. No murmurs, lower extremity edema PULMONARY: Decreased breath sounds bilaterally, no use of accessory muscle ABDOMEN: Soft, nontender, nondistended, normoactive bowel sounds. No palpable organomegaly. MUSCULOSKELETAL: No joint swelling or deformity. EXTREMITIES: No cyanosis, clubbing, or pedal edema. NEUROLOGICAL: Disoriented, lethargic - Labs CBC & Chem 7: 01/06/23 03:25 01/06/23 03:25 Labs: Abnormal Lab Results - Last 24 Hours (Table) 01/05/23 01/05/23 01/06/23 Range/Units 16:43 20:20 03:25 RBC 2.67 L (4.30-5.90) m/uL Hgb 8.7 L (13.0-17.5) gm/dL Hct 25.6 L (39.0-53.0) % Plt Count 81 L (150-450) k/uL Lymphocytes # (Manual) 0.61 L (1.0-4.8) k/uL Sodium (137-145) mmol/L BUN (9-20) mg/dL Creatinine (0.66-1.25) mg/dL Glucose (74-99) mg/dL POC Glucose (mg/dL) 152 H 144 H (70-110) mg/dL Calcium (8.4-10.2) mg/dL 01/06/23 01/06/23 01/06/23 Range/Units 03:25 06:59 11:50 RBC (4.30-5.90) m/uL Hgb (13.0-17.5) gm/dL Hct (39.0-53.0) % Plt Count (150-450) k/uL Lymphocytes # (Manual) (1.0-4.8) k/uL Sodium 136 L (137-145) mmol/L BUN 56 H (9-20) mg/dL Creatinine 1.66 H (0.66-1.25) mg/dL Glucose 142 H (74-99) mg/dL POC Glucose (mg/dL) 149 H 179 H (70-110) mg/dL Calcium 6.5 L (8.4-10.2) mg/dL Assessment and Plan Assessment: * Acute hypoxic respiratory failure with COPD exacerbation * Liver cirrhosis, cannot rule out malignancy given multiple nodules and will require liver biopsy * Hypercalcemia and pain below the rib cage and also back pain. Malignancy work-up in process. Bone scan showed a markedly heterogenous uptake involving the bilateral rib cage, vertebral column pelvis and calvarium appears to correspond to abnormal marrow appearance of the visualized osseous structures of the CAT scan. Suspect occult malignancy. * COPD with exacerbation * Acute renal failure * Left lower lobe pulmonary nodule measuring 1.5 cm. Outpatient PET scan recommended by pulmonary. * Coronary artery disease with prior history of stent placement * History of CVA * Peripheral vascular disease with previous history of femoropopliteal bypass surgery. * Bilateral carotid endarterectomies * History of DVT left lower extremity * History of CVA/TIA * Hypertension * Hyperlipidemia * Elevated liver enzymes and cholelithiasis without evidence of cholecystitis. * History of nephrolithiasis Plan: Continue with ICU management, on high flow oxygen, nonrebreather continue patient on IV Solu-Medrol and IV Zosyn, management for COPD exacerbation Consult pain management is appreciated and patient currently is on fentanyl and oxycodone when necessary In regards to urinary renal failure, nephrology following, Lasix and hypertensive medications Cozaar and amlodipine on hold will monitor renal function Patient seen by multiple specialities including hematology oncology In regards to history of CVA continue patient on Lipitor Due to respiratory status unable to have further workup done including MRI liver
[2023-01-06 16:52] LABS: Glucose,Whole Blood 143 mg/dL (70-110)
[2023-01-06 20:25] LABS: Glucose,Whole Blood 154 mg/dL (70-110)
[2023-01-06] MEDS: ATORVASTATIN 80 MG TAB PO SCH (20:49)
[2023-01-07] MEDS: methylPREDNISolone SOD SUCCI 125 MG/2 ML VIAL IV SCH ×4 (00:05→17:05)
[2023-01-07] MEDS: PIPERACILLIN-TAZOBACTAM 3.375 GM in SODIUM CHLORIDE 0.9% 100 ML IVPB SCH ×3 (01:32→17:05)
[2023-01-07 02:14] LABS: Glucose,Whole Blood 184 mg/dL (70-110)
[2023-01-07 04:16] LABS: HCT 22.4 % (39.0-53.0); MCH 33.6 pg (25.0-35.0); MCHC 35.6 g/dL (31.0-37.0); MCV 94.5 fL (80.0-100.0); Mean Platelet Volume 8.3; RBC 2.37 m/uL (4.30-5.90); RDW 14.9 % (11.5-15.5); WBC 4.3 k/uL (3.8-10.6)
[2023-01-07 04:17] LABS: Platelet Count 82 k/uL (150-450)
[2023-01-07 04:42] LABS: ALT 166 U/L (4-49); AST 610 U/L (17-59); African American GFR (CKD) 57 (>60 ml/min/1.73 sqM); Albumin 2.9 g/dL (3.5-5.0); Alkaline Phosphatase 251 U/L (38-126); Anion Gap 8 mmol/L; Blood Urea Nitrogen 63 mg/dL (9-20); Carbon Dioxide 27 mmol/L (22-30); Chloride 100 mmol/L (98-107); Glucose 147 mg/dL (74-99); Non-African American GFR(CKD) 49 (>60 ml/min/1.73 sqM); Potassium 4.2 mmol/L (3.5-5.1); Sodium 135 mmol/L (137-145); Total Bilirubin 1.1 mg/dL (0.2-1.3); Total Protein 5.8 g/dL (6.3-8.2)
[2023-01-07 04:54] LABS: Calcium 6.4 mg/dL (8.4-10.2)
[2023-01-07 06:28] LABS: Glucose,Whole Blood 151 mg/dL (70-110)
[2023-01-07] MEDS: INSULIN ASPART (NovoLOG) 100 UNIT/ML VIAL SQ SCH ×4 (06:53→20:33)
[2023-01-07] MEDS: MORPHINE SULFATE 4 MG/ML SYRINGE IVP PRN ×3 (08:21→20:51)
[2023-01-07] MEDS: PANTOPRAZOLE 40 MG/10 ML VIAL IV SCH ×2 (09:38→20:33)
[2023-01-07] MEDS: THIAMINE 100 MG TAB PO SCH (09:39)
[2023-01-07] MEDS: DOCUSATE 100 MG CAP PO SCH ×2 (09:39→20:33)
[2023-01-07] MEDS: DULoxetine HCL 30 MG CAPSULE.DR PO SCH ×2 (09:39→20:34)
[2023-01-07] MEDS: METOPROLOL TARTRATE 25 MG TAB PO SCH ×2 (09:39→20:33)
[2023-01-07] MEDS: EZETIMIBE 10 MG TAB PO SCH (09:39)
[2023-01-07] MEDS: SENNOSIDES-DOCUSATE SODIUM 1 EACH TAB PO SCH ×2 (09:40→20:33)
[2023-01-07] MEDS: BACLOFEN 10 MG TAB PO SCH ×2 (09:40→20:33)
[2023-01-07] MEDS: FORMOTEROL FUMARATE 20 MCG/2 ML NEBU INHALATION SCH ×2 (09:52→21:01)
[2023-01-07] MEDS: BUDESONIDE 1 MG/2 ML NEBU INHALATION SCH ×2 (09:52→21:01)
[2023-01-07] MEDS: IPRATROPIUM-ALBUTEROL 3 ML NEB INHALATION SCH ×4 (09:52→21:01)
--- NOTE | 2023-01-07 09:52 | P.PN ---
Subjective Progress Note Date: 01/07/23 67-year-old male patient was transferred to us from [facility] for diffuse pain. The pain is mainly across his chest and upper abdomen and across the rib cage addition to chronic back pain. Is known to have chronic dyspnea and the patient is noted COPD and a left lung pulmonary nodule that has been followed up on outpatient basis. Initially went to [facility] and his calcium level was noted to be elevated. Based on his ongoing symptoms, he was referred to us. His current calcium level is at 13. He did not have any previous issues with hypercalcemia. Is known to have COPD, pulmonary nodule, coronary artery disease and extensive peripheral vascular disease and the sruthi ent has undergone previous vascular bypass surgery and stenting to the lower extremities. He is also known to have previous history of DVT. Maintain on long-term anticoagulants. At the same time, the patient has hypertension, hyperlipidemia, obesity, chronic back pain and a recent MRI from August 2022 showed wedging of the L2 spine in the order of 15% without any acute fractures. There is also multilevel spondylitic changes and mildly prominent narrowing due to facet arthropathy and disc space narrowing at the level of L4-L5 and old compression fracture the level of L2. Mild edema in the anterior L3 vertebral and posterior L5 vertebral and there is no evidence of any significant lumbar s tenosis. The computed tomography scan of the abdomen and pelvis that was done in 09/22/2022 showed moderate to severe narrowing throughout the bilateral external iliac arteries and a stent in the superficial femoral artery was patent on the left. There was cholelithiasis and moderate atherosclerotic changes throughout the abdominal aorta and colonic diverticulosis. There are atelectatic changes in the right posterior base. On today's evaluation 01/03/2023, the patient remains hypoxic and the patient remains on 15 L of oxygen by nasal cannula high flow to maintain a saturation above 90%. He is still being investigated for an underlying malignancy as the patient has an elevated CEA level and he presented to us with hypercalcemia. The patient was treated for hypercalcemia and he was given a combination of calcitonin and Zometa. His PTH level is low and PTH related peptide still pending. He also has a liver lesion and he was supposed to undergo an MRI of his liver for better characterization of the liver mass and the patient was unable to tolerate to lay down flat. He had a chest x-ray was showing the development of a right midlung patchy airspace disease most on the right upper lobe and to also some airspace opacities in the left lung base concerning for pneumonia. Repeat chest x-ray was done and the patient showed improvement in the right upper lobe pulmonary infiltrate with bilateral lower lobe pulmonary infiltrates and small effusion. Lung volumes are essentially small. The patient remains on broad-spectrum antibiotics. The patient is on IV Zosyn for now. He is also having significant amount of edema lower extremity bilaterally and he remains on IV Lasix 40 mg every 12 hours. He remains on bronchodilators. Oncologist on the case. Final diagnoses not been achieved yet. On today's evaluation of 01/04/2023, the patient's condition is somewhat decom pensated. He was placed on 100% nonrebreather facemask in addition to the 15 L of oxygen by nasal cannula to maintain a saturation above 90%. I repeated the chest x-ray and there is evidence of bibasilar atelectasis and there is continued improvement and resolution of the right upper lobe pulmonary infiltrates. X-ray of the abdomen also showed some stable dilated bowel loops unchanged from previous evaluation. The transverse colon and the right colon appears to be dilated out of proportion to the left colon. Partial obstruction/ileus cannot be completely excluded. Extensive retained breathes in the right colon could be related to underlying constipation. The patient has no abdominal pain. Abdomen is slightly distended. The patient remains on diuretics. The patient is producing urine output. Continues to have significant amount of edema lower extremity bilaterally. Remains on IV Zosyn. Remains on IV Lasix. Remains on bronchodilators and steroids. On 01/05/2023, the patient is being seen in the intensive care unit. The patient got transferred to the ICU because of progressive hypoxemia. The patient was placed on a BiPAP and the patient is currently on BiPAP at a pres sure of 14/10 cm of water with FiO2 of 100%. A CT angiogram was done yesterday that showed no evidence of any pulmonary embolism. The CT angiogram showed atelectatic changes in lung bases bilaterally involving the lower lobes and some limited patchy groundglass pulmonary infiltrates and the right upper lobe and the right lower lobe in addition to some background emphysema. However, the abnormalities that were seen are not significant and the patient's hypoxemia remains out of proportion to the CAT scan findings. The patient was also demonstrated to have a T7 compression fracture with 50% height loss. 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 The patient remains on a combination of antibiotics and diuretics. The patient is currently on IV Zosyn and the patient is also receiving Lasix 40 mg IV every 12 hours. The patient remains in negative fluid balance of the lower extremity edema has been improving. The blood gas from today shows a pH of 7.44 with a pC O2 of 40 and pO2 of 61. BUN is at 40 with a creatinine of 1.1 and a sodium level is at 135. The white cell count of 5.5 with a hemoglobin of 9.9. Abdomen is still distended. If at some of the abdomen was done yesterday and it showed stable dilated bowel loops unchanged compared to the earlier x-ray of 01/02/2023. The bowel gas pattern is nonspecific. Transfers: And right colon does appear to be dilated out of proportion to the left. Partial obstruction is within depression diagnosis. Is also extensive retained degrees and stool and the right colon suggesting the possibility of constipation. The patient is currently on a combination of laxatives and the patient is currently receiving senna and Colace. He is awake and alert and communicating at this point in time. 01/06/2023, the patient is awake and alert and communicating. He was taken off the BiPAP and he was placed on a high flow 15 L in addition to nonrebreather facemask with a pulse ox of 94-95%. Chest x-ray findings remain unchanged and stable. No major events overnight. The patient continues to diurese. Urine ou tput is adequate for now. The patient remains on IV Lasix. BUN is at 56 with a creatinine of 1.6 and obviously diuresis needs to be held for now due to development of some prerenal azotemia. Sodiums of 136, potassium levels at 4.3, the bronchoscope was at 4.7 with a hemoglobin of 8.7. The patient remains on IV Zosyn. The abdomen is softer on today's evaluation. He passed a lot of gas yesterday. 01/07/2023 the patient is on a BiPAP at a pressure of 14/10 with an FiO2 of 50% and he has a pulse ox between 94-96%. Is able to generate adequate tidal volumes. His minute ventilation is nonelevated. He is breathing comfortably. He has a congested cough. No significant sputum production and the patient remains on IV Zosyn. The patient's otherwise has no other complaints. Diuretics were held as the patient will have developed an acute kidney injury and the creatinine was up to 1.6 and currently is down to 1.4. Sodium is at 135. White cell cause of 4.3 with a hemoglobin of 8. Chest x-rays are being monitored in the most recent chest x-ray yesterday shows no major abnormalities. Lungs are well expanded and there is some residual patchy right mid lung opacity and some in the left base. There is also some minimal interstitial changes. LFTs are abnormal and the patient has evidence of hepatic steatosis. Ultrasound the liver that was done on 01/02/2023 showed no evidence of any fluid within the abdomen. His CAT scan of the abdomen and pelvis that was done on 12/24/2022 showed innumerable small nodules throughout the liver possibility of liver cirrhosis versus diffuse metastatic disease. He is also known to have cholelithiasis and mild sigmoid colon diverticulosis. Objective - Vital Signs Vital signs: Vital Signs Temp 97.0 F L 01/07/23 08:00 Pulse 64 01/07/23 09:00 Resp 9 L 01/07/23 09:00 BP 135/73 01/07/23 09:00 Pulse Ox 97 01/07/23 09:00 FiO2 50 01/07/23 09:15 Intake & Output 01/06/23 01/07/23 01/07/23 18:59 06:59 18:59 Intake Total 2060 740 30 Output Total 1260 635 170 Balance 800 105 -140 Weight 97.2 kg Intake: IV 350 240 30 0.9 150 140 30 Piperacillin-Tazobactam 3 200 100 .375 gm In Sodium Chloride 0.9% 100 ml @ 25 mls/hr IVPB Q8H [facility] Rx#: [id number] Oral 1710 500 Output: Urine 1260 635 170 Other: Voiding Method Indwelling Catheter Indwelling Catheter - Exam Gen. appearance obese, comfortable, no acute distress BMI 30.4 Currently on BiPAP at pressure 14/10 cm of water Head exam was generally normal. There was no scleral icterus or corneal arcus. Mucous membranes were moist. Neck was supple and without jugular venous distension, thyromegaly, or carotid bruits. Carotids were easily palpable bilaterally. There was no adenopathy. Lungs sounds are diminished bilaterally and the patient has scattered expiratory wheeze Cardiac exam revealed the PMI to be normally situated and sized. The rhythm was regular and no extrasystoles were noted during several minutes of auscultation. The first and second heart sounds were normal and physiologic splitting of the second heart sound was noted. There were no murmurs, rubs, clicks, or gallops. Abdominal exam revealed normal bowel sounds. The abdomen was soft, non-tender, and without masses, organomegaly, or appreciable enlargement of the abdominal aorta. Abdomen is distended with hypoactive bowel sounds. No direct tenderness. No rebound tenderness or guarding Examination of the extremities revealed easily palpable radial, femoral and pedal pulses. There was no cyanosis, clubbing or edema. Examination of the skin revealed no evidence of significant rashes, suspicious appearing nevi or other concerning lesions. Neurologically, the patient is awake and alert and the patient does not have any focal neurological deficit. Cranial nerves are essentially intact. - Labs CBC & Chem 7: 01/07/23 03:43 01/07/23 03:43 Labs: Abnormal Lab Results - Last 24 Hours (Table) 01/06/23 01/06/23 01/06/23 Range/Units 11:50 16:50 20:24 RBC (4.30-5.90) m/uL Hgb (13.0-17.5) gm/dL Hct (39.0-53.0) % Plt Count (150-450) k/uL Sodium (137-145) mmol/L BUN (9-20) mg/dL Creatinine (0.66-1.25) mg/dL Glucose (74-99) mg/dL POC Glucose (mg/dL) 179 H 143 H 154 H (70-110) mg/dL Calcium (8.4-10.2) mg/dL Ionized Calcium Aliza (4.5-5.3) mg/dL AST (17-59) U/L ALT (4-49) U/L Alkaline Phosphatase (38-126) U/L Total Protein (6.3-8.2) g/dL Albumin (3.5-5.0) g/dL 01/07/23 01/07/23 01/07/23 Range/Units 02:13 03:43 03:43 RBC 2.37 L (4.30-5.90) m/uL Hgb 8.0 L (13.0-17.5) gm/dL Hct 22.4 L (39.0-53.0) % Plt Count 82 L (150-450) k/uL Sodium 135 L (137-145) mmol/L BUN 63 H (9-20) mg/dL Creatinine 1.47 H (0.66-1.25) mg/dL Glucose 147 H (74-99) mg/dL POC Glucose (mg/dL) 184 H (70-110) mg/dL Calcium 6.4 L* (8.4-10.2) mg/dL Ionized Calcium Aliza (4.5-5.3) mg/dL AST 610 H (17-59) U/L ALT 166 H (4-49) U/L Alkaline Phosphatase 251 H (38-126) U/L Total Protein 5.8 L (6.3-8.2) g/dL Albumin 2.9 L (3.5-5.0) g/dL 01/07/23 01/07/23 Range/Units 05:25 06:26 RBC (4.30-5.90) m/uL Hgb (13.0-17.5) gm/dL Hct (39.0-53.0) % Plt Count (150-450) k/uL Sodium (137-145) mmol/L BUN (9-20) mg/dL Creatinine (0.66-1.25) mg/dL Glucose (74-99) mg/dL POC Glucose (mg/dL) 151 H (70-110) mg/dL Calcium (8.4-10.2) mg/dL Ionized Calcium Aliza 3.8 L (4.5-5.3) mg/dL AST (17-59) U/L ALT (4-49) U/L Alkaline Phosphatase (38-126) U/L Total Protein (6.3-8.2) g/dL Albumin (3.5-5.0) g/dL Assessment and Plan Plan: Assessment and Plan Assessment: Acute hypoxic respiratory failure with multilobar pneumonia more so on the right upper lobe/right middle lobe area, improving with IV Zosyn. The patient became progressively more hypoxic. A repeat CTA of the chest was done that showed no evidence of any pulmonary embolism. There was some residual groundglass pulmonary infiltrates in the right upper lobe and the right lower lobe in addition to extensive atelectatic change in lung bases bilaterally. There is background emphysema. The patient is on BiPAP at a pressure of 14/10 cm of water with FiO2 of 50%. Oxygenation is stable at this point in time. Shortness of breath secondary to above Diffuse skeletal pain involving the chest wall and back. Bone scan did reveal marked heterogenous uptake involving the bilateral rib cage, vertebral column, pelvis and calvarium appears to correspond to abnormal marrow appearance of the visualized osseous structures on CAT scan. Suspect malignancy. Carcinoembryonic antigen 4441. CA 199 antigen 69.5. Colonoscopy from 12/23/2022 revealed a 5 mm cecal and a 1 cm ascending colon polyps status post biopsies. Pathology pending. No masses identified. He will need a liver biopsy. Xarelto, Aspirin and Plavix remain on hold. Computed tomography scan of the abdomen revealed innumerable small nodules throughout the liver. Heterogenous appearance to the osseous structures. Given the liver findings, correlate for potential infilt rative disease or diffuse osseous metastatic disease. CT angiogram from 12/26/2022 ruled out pulmonary embolism. Abdominal distention with possible constipation and fecal debris is in the right colon. The transverse and the left side is also dilated. The patient is passing gas. He will receive an enema today Acute kidney injury, likely secondary to diuresis. Continues to have lower extremity edema bilaterally. Creatinine is stable for now Hypercalcemia. Received Zometa. Calcium level improved. Left lower lobe pulmonary nodule measuring 1.5 cm, will need an outpatient PET CT and further investigation. Probable metastatic disease to the lung. Coronary artery disease. Vascular disease with a previous fem-pop bypass surgery. Bilateral carotid endarterectomies. Coronary artery disease and coronary stenting. Previous history of CVA. Previous history of DVT of the left lower extremity. Previous history of Covid 19 infection in February 2021. Hypertension. Hyperlipidemia. Abnormal LFTs with cholelithiasis without evidence of cholecystitis. History of nephrolithiasis. Plan: Overall condition is stable. The patient's multiple comorbidities and his non dominant major progress in terms of breathing or oxygenation We'll try. Ventimask and discontinue the BiPAP Continue IV Zosyn Keep the Lasix on hold He did stool following an enema Unable to do the MRI of the liver at this point in time and this can be done at later stage Calcium level is normalized Continue laxatives regarding abdominal distention. We'll continue with oncology Obviously malignancy workup can be also on an outpatient basis once the patient is more stable and oxygen patient is further improved. She the patient will need a PET/CT We'll continue to follow Condition is critical and the patient will be kept in the ICU for now Time with Patient: Less than 30
[2023-01-07 11:44] VITALS: BMI 29.9
--- NOTE | 2023-01-07 11:47 | P.PN ---
Subjective Patient is seen for follow-up for acute kidney injury. He was initially being followed for hypercalcemia however his serum calcium had improved from 13.0 and was actually low at 6.5-6.3 g/dL recently. There is high suspicion for underlying malignancy with liver nodules and significantly elevated carcinoembryonic antigen. Biopsy of the liver nodules is on hold and to be scheduled as outpatient. Patient was transferred to the ICU for acute hypoxic respiratory failure. Patient was maintained on Lasix and it is now on hold. Chest x-ray is not suggestive of CHF. Serum creatinine increased to 1.6 but decrease to 1.4 today. Cozaar and Norvasc were discontinued due to low blood pressure. Urine output at 70 - 150 ML per hour Currently not on any IV fluids. Maintained on 100% nonrebreather. Objective - Vital Signs Vital signs: Vital Signs Temp 97.0 F L 01/07/23 08:00 Pulse 68 01/07/23 09:52 Resp 19 01/07/23 09:52 BP 135/73 01/07/23 09:00 Pulse Ox 97 01/07/23 09:00 FiO2 50 01/07/23 11:19 Intake & Output 01/06/23 01/07/23 01/07/23 18:59 06:59 18:59 Intake Total 2060 740 130 Output Total 1260 635 320 Balance 800 105 -190 Weight 97.2 kg Intake: IV 350 240 130 0.9 150 140 30 Piperacillin-Tazobactam 3 200 100 100 .375 gm In Sodium Chloride 0.9% 100 ml @ 25 mls/hr IVPB Q8H [facility] Rx#: [id number] Oral 1710 500 Output: Urine 1260 635 320 Other: Voiding Method Indwelling Catheter Indwelling Catheter - Exam Awake, comfortable, in no acute distress Examination of the heart S1 and S2 Examination the lungs decreased breath sounds at the bases Abdomen is soft, mild tenderness left upper abdomen Examination of lower extremity shows 2+ edema bilateral [employer] exam grossly intact - Labs CBC & Chem 7: 01/07/23 03:43 01/07/23 03:43 Labs: Abnormal Lab Results - Last 24 Hours (Table) 01/06/23 01/06/23 01/06/23 Range/Units 11:50 16:50 20:24 RBC (4.30-5.90) m/uL Hgb (13.0-17.5) gm/dL Hct (39.0-53.0) % Plt Count (150-450) k/uL Sodium (137-145) mmol/L BUN (9-20) mg/dL Creatinine (0.66-1.25) mg/dL Glucose (74-99) mg/dL POC Glucose (mg/dL) 179 H 143 H 154 H (70-110) mg/dL Calcium (8.4-10.2) mg/dL Ionized Calcium Aliza (4.5-5.3) mg/dL AST (17-59) U/L ALT (4-49) U/L Alkaline Phosphatase (38-126) U/L Total Protein (6.3-8.2) g/dL Albumin (3.5-5.0) g/dL 01/07/23 01/07/23 01/07/23 Range/Units 02:13 03:43 03:43 RBC 2.37 L (4.30-5.90) m/uL Hgb 8.0 L (13.0-17.5) gm/dL Hct 22.4 L (39.0-53.0) % Plt Count 82 L (150-450) k/uL Sodium 135 L (137-145) mmol/L BUN 63 H (9-20) mg/dL Creatinine 1.47 H (0.66-1.25) mg/dL Glucose 147 H (74-99) mg/dL POC Glucose (mg/dL) 184 H (70-110) mg/dL Calcium 6.4 L* (8.4-10.2) mg/dL Ionized Calcium Aliza (4.5-5.3) mg/dL AST 610 H (17-59) U/L ALT 166 H (4-49) U/L Alkaline Phosphatase 251 H (38-126) U/L Total Protein 5.8 L (6.3-8.2) g/dL Albumin 2.9 L (3.5-5.0) g/dL 01/07/23 01/07/23 Range/Units 05:25 06:26 RBC (4.30-5.90) m/uL Hgb (13.0-17.5) gm/dL Hct (39.0-53.0) % Plt Count (150-450) k/uL Sodium (137-145) mmol/L BUN (9-20) mg/dL Creatinine (0.66-1.25) mg/dL Glucose (74-99) mg/dL POC Glucose (mg/dL) 151 H (70-110) mg/dL Calcium (8.4-10.2) mg/dL Ionized Calcium Aliza 3.8 L (4.5-5.3) mg/dL AST (17-59) U/L ALT (4-49) U/L Alkaline Phosphatase (38-126) U/L Total Protein (6.3-8.2) g/dL Albumin (3.5-5.0) g/dL Assessment and Plan Assessment: 1. Hypercalcemia rule out underlying malignancy. PTH is appropriately suppressed. CEA is significantly elevated and multiple liver nodules noted on abdominal CT. Biopsy is planned as outpatient. 2. Multilobar pneumonia 3. Multiple liver nodules suspicious of metastatic disease 4. Acute kidney injury, nonoliguric ATN secondary to low blood pressure. 5. Lower extremity edema. Check urine analysis to rule out proteinuria Plan: Continue off of angiotensin receptor blockers Check UA rule out proteinuria IV Lasix 1
--- NOTE | 2023-01-07 12:43 | P.PN ---
Subjective Progress Note Date: 01/07/23 67-year-old male was admitted to the hospital with complaints of abdominal pain and found to have cholelithiasis and cholecystitis. Patient also has hypercalcemia. 12/20/2022 Patient is currently lying in the bed. Awake alert and oriented x3. Anxious. Complains of both right upper and and left upper quadrant abdominal pain below the rib cage. Also complaining of back pain. No complaints of nausea vomiting. Patient underwent bone scan today. Due to hypercalcemia. Oncology and nephrology is on board. Laboratory data showed WBC 10.8 hemoglobin 15.1 and platelets 132 BUN 31.4 and creatinine 1.2 and bicarb level is 20.4 anion gap 14.6. Calcium level 12.6. Tumor markers were ordered. 12/21/2022 Patient is currently lying in bed. Awake alert and oriented x3. On oxygen at 4 L via nasal cannula. Still complains of pain below the rib cage. Bone scan was done yesterday showed a markedly heterogenous uptake involving the bilateral rib cage, vertebral column pelvis and calvarium appears to correspond to abnormal marrow appearance of the visualized osseous structures of the CAT scan. Suspect occult malignancy. Otherwise patient is being continued on IV Solu-Medrol DuoNebs and antibiotics and home Zosyn. Also on anticoagulation with Xarelto. Laboratory data showed WBC 8.2 hemoglobin 14.1 and platelets 119 Sodium 138 potassium 4.6 chloride 105 bicarb is 28 BUN 24 and creatinine 1.07 AST 110 ALT 90 alk phos 160. 12/22/2022 Patient is currently lying in bed. Complains of pain. Currently on [place] and morphine sustained-release was ordered. IR guided biopsy of the liver lesion could not be done due to patient being on anticoagulation. Oncology recommends endoscopic evaluation at this time. Otherwise CT of the abdomen pelvis done yesterday showed extensive 1 to 2 cm nodules diffusely throughout the left and right lobes of the liver suspicious for metastatic disease. CEA level is elevated. Laboratory data reviewed. 2022 Patient was admitted to the hospital due to bilateral rib cage pain and hypercalcemia and work-up in process for malignancy. Currently lying in the bed. Awake alert and oriented. No complaints of fever or chills. Currently on 4 L via nasal cannula. Continued on prednisone 30 mg daily. Also, DuoNebs and anticoagulation. Patient is scheduled for EGD and colonoscopy today. Otherwise cultures showed no growth. Patient is off antibiotics currently. Laboratory data showed WBC 8.1 hemoglobin 13.6 and platelets 124 BUN 19.3 and creatinine 0.7. Calcium level came down to 8.5. 12/24/2022 Patient is today had EGD and colonoscopy showing small hiatal hernia and cecal polyp which was removed. No other significant abnormality. Patient had repeat CT of the abdomen and pelvis today showing multiple nodules of the liver suspicious for liver cirrhosis versus metastatic disease area Heterogenous appearance of the osseous structures suspicious for metastatic disease. Moderate to severe stenosis of bilateral iliac arteries and right renal artery. As well as SMA. Cholelithiasis and diverticulitis. Prostate gland calcification 1.1 cm. Left humeral head avascular necrosis with yearly subarticular collapse The plan for him is to get never biopsy however we need to hold Plavix and Eliquis prior to that. There was possible to discharge and the patient and do the procedure as an outpatient and follow-up with oncologist as an outpatient on , however patient still complaining of from severe bilateral rib cage pain and tenderness related most likely due to metastatic disease. Upon consult is obtained. Also patient most likely will have biopsy next week. Discussed with staff 12/25/2022 Patient today looks less lethargic and sitting up in chair, however he is more short of breath and Solu-Medrol is adequate. Repeat chest x-ray showed possible right lower pneumonia and Zosyn is added. proCalcitonin is pending. Also liver biopsy is pending 12/26/2022 pt is still lethargic but alert and awake , lying in bed with generalized we akness, he say his chest and rib cage pain is there but feels tolerable he remains on zosyn and solumedrol 40 mg pending liver [facility]: neg for PE 12/27/2022 pt clinically looks similar to the last few day, somewhat lewthargic and week , slighly tachypneic due to rib cage pain , tumour mass, and possible fluid overload. he is on 5 L of O2 via nasal cannula he supposed to get liver biopsy but per oncology input this may not be feasable as per notes from the IR team . other options are PET scan which is typically done as outpatient usually, or diagnostic thoracocentasis, we will defer to oncology team the decision on how to obtain the tissue diagnosis pt got one dose of lasix today which looks it helped him a little bit he is on zosyn and solumedrol 40 mg at bed side and all their questions were answered 12/28/2022 No significant change, still tired and weak . Other that he is hemodynamically stable. No new complaint. Patient remains on Zosyn. IV Solu-Medrol switched to prednisone 20 mg. That looks like patient cannot get liver biopsy per IR team. We will discuss with hematology/oncology team further recommendation and the next step in the diagnosis. 12/29/2022 Patient awake alert does not look in much distress, maybe mild oral no respiratory distress, somewhat tachypneic. Last that his oxygen requirement went up and currently he is on high flow nasal cannula with a flow rate of 55 L/m and FiO2 of 100%. Repeated chest x-ray showing no much change from previous still has patchy infiltrates on both sides, transected looks even slightly better on radiology notes. Steroids has been bumped up to 60 mL again this morning. Also she remains on Zo syn. Also patient has some abdominal distention but he tolerates that well, no abdominal pain and tenderness or vomiting. He is passing flatus but he complains from constipation over the last few days. Patient is not to take narcotic pain medication and he is on senna only therefore we added MiraLAX when necessary and Colace with a close monitoring. Oncology team is working on obtaining a biopsy diagnosis for the patient prior to discharge or plan for that. Patient may benefit from PET scan inpatient per oncology team. Discussed with staff Resume of the care of the patient on 01/03/2023 Patient still hypoxic but improving, and oxygen requirements down to 15 L/m. He is lying in bed with no significant respiratory distress, he reports improved in breathing. No cough, no significant chest pain He has right-sided chest pain related to metastatic disease since admission and directed as it/stent and it looks controlled with fentanyl and when necessary oxycodone. Patient reports having adequate bowel movements and is agreeable with the stool softeners. He remains on Zosyn. Also he is on high-dose IV Solu-Medrol 60 mg -Lasix 40 mg twice daily added yesterday Liver biopsy could not be obtained because of the small lesion per IR, hematology/oncology team saw the case 01/04/2023 Patient today is more dyspneic and lethargic. His oxygen requirement went to 30 L/m, and was 15 with a permanent this morning. Interestingly chest x-ray showing improvement in her radiation. he Is still on Zosyn, IV Lasix for 2 without twice daily and salmederol 60 mg Check labs in the morning 01/05/2023 Patient yesterday developed more respiratory distress and A-TEAM was called for him for hypoxia and patient was eventually transferred to the ICU for further management Patient was placed on BiPAP and while in the ICU his requiring more tense sitting this morning, he was 14/10 with FiO2 of 100%. Repeat chest x-ray and CTA of the chest showed no pulmonary embolism and the groundglass opacity in the right upper lobe and the right lower lobe. Pro- calcitonin is mildly elevated. Patient has been on Zosyn for almost 10 days on continue. Reason IV Solu-Medrol 60 mg. He is on Lasix 40 mg twice daily. Discussed with staff Prognosis guarded 01/06: Patient seen and everted bedside patient complains lethargic at this point patient is currently arousable on oxygen supplementation with nonrebreather. Noted to have elevated creatinine nephrology following critical care team following 01/07: Patient seen and everted bedside. Continue to remain on high flow oxygen. Receiving IV antibiotics followed up by pulmonary medicine. Overnight liver profile has still been elevated as well. Patient placed on Ventimask. Lasix is on hold Objective - Vital Signs Vital signs: Vital Signs Temp 98.0 F 01/07/23 12:00 Pulse 68 01/07/23 12:06 Resp 15 01/07/23 12:06 BP 125/67 01/07/23 12:00 Pulse Ox 95 01/07/23 12:00 FiO2 60 01/07/23 12:00 Intake & Output 01/06/23 01/07/23 01/07/23 18:59 06:59 18:59 Intake Total 2060 740 130 Output Total 1260 635 320 Balance 800 105 -190 Weight 97.2 kg 97.2 kg Intake: IV 350 240 130 0.9 150 140 30 Piperacillin-Tazobactam 3 200 100 100 .375 gm In Sodium Chloride 0.9% 100 ml @ 25 mls/hr IVPB Q8H [facility] Rx#: [id number] Oral 1710 500 Output: Urine 1260 635 320 Other: Voiding Method Indwelling Catheter Indwelling Catheter - Exam PHYSICAL EXAMINATION: GENERAL: The patient is alert and oriented x 2 , ill appearance, facemask in place CARDIOVASCULAR: S1 and S2 present. No murmurs, lower extremity edema PULMONARY: Decreased breath sounds bilaterally, no use of accessory muscle ABDOMEN: Soft, distended, nontender on palpation. MUSCULOSKELETAL: No joint swelling or deformity. EXTREMITIES: 2+ lotion to edema noted. NEUROLOGICAL: Able to move extremities no focal deficits are noted - Labs CBC & Chem 7: 01/07/23 03:43 01/07/23 03:43 Labs: Abnormal Lab Results - Last 24 Hours (Table) 01/06/23 01/06/23 01/07/23 Range/Units 16:50 20:24 02:13 RBC (4.30-5.90) m/uL Hgb (13.0-17.5) gm/dL Hct (39.0-53.0) % Plt Count (150-450) k/uL Sodium (137-145) mmol/L BUN (9-20) mg/dL Creatinine (0.66-1.25) mg/dL Glucose (74-99) mg/dL POC Glucose (mg/dL) 143 H 154 H 184 H (70-110) mg/dL Calcium (8.4-10.2) mg/dL Ionized Calcium Aliza (4.5-5.3) mg/dL AST (17-59) U/L ALT (4-49) U/L Alkaline Phosphatase (38-126) U/L Total Protein (6.3-8.2) g/dL Albumin (3.5-5.0) g/dL 01/07/23 01/07/23 01/07/23 Range/Units 03:43 03:43 05:25 RBC 2.37 L (4.30-5.90) m/uL Hgb 8.0 L (13.0-17.5) gm/dL Hct 22.4 L (39.0-53.0) % Plt Count 82 L (150-450) k/uL Sodium 135 L (137-145) mmol/L BUN 63 H (9-20) mg/dL Creatinine 1.47 H (0.66-1.25) mg/dL Glucose 147 H (74-99) mg/dL POC Glucose (mg/dL) (70-110) mg/dL Calcium 6.4 L* (8.4-10.2) mg/dL Ionized Calcium Aliza 3.8 L (4.5-5.3) mg/dL AST 610 H (17-59) U/L ALT 166 H (4-49) U/L Alkaline Phosphatase 251 H (38-126) U/L Total Protein 5.8 L (6.3-8.2) g/dL Albumin 2.9 L (3.5-5.0) g/dL 01/07/23 Range/Units 06:26 RBC (4.30-5.90) m/uL Hgb (13.0-17.5) gm/dL Hct (39.0-53.0) % Plt Count (150-450) k/uL Sodium (137-145) mmol/L BUN (9-20) mg/dL Creatinine (0.66-1.25) mg/dL Glucose (74-99) mg/dL POC Glucose (mg/dL) 151 H (70-110) mg/dL Calcium (8.4-10.2) mg/dL Ionized Calcium Aliza (4.5-5.3) mg/dL AST (17-59) U/L ALT (4-49) U/L Alkaline Phosphatase (38-126) U/L Total Protein (6.3-8.2) g/dL Albumin (3.5-5.0) g/dL Assessment and Plan Assessment: * Acute hypoxic respiratory failure with COPD exacerbation * Liver cirrhosis, cannot rule out malignancy given multiple nodules and will require liver biopsy * Right lung pneumonia multifocal * Liver failure with transaminitis multi-factorial with liver lesions noted on CT * Hypercalcemia and pain below the rib cage and also back pain. Malignancy work-up in process. Bone scan showed a markedly heterogenous uptake involving the bilateral rib cage, vertebral column pelvis and calvarium appears to correspond to abnormal marrow appearance of the visualized osseous structures of the CAT scan. Suspect occult malignancy. * COPD with exacerbation * Acute renal failure * Left lower lobe pulmonary nodule measuring 1.5 cm. Outpatient PET scan recommended by pulmonary. * Coronary artery disease with prior history of stent placement * History of CVA * Peripheral vascular disease with previous history of femoropopliteal bypass surgery. * Bilateral carotid endarterectomies * History of DVT left lower extremity * History of CVA/TIA * Hypertension * Hyperlipidemia * Elevated liver enzymes and cholelithiasis without evidence of cholecystitis. * History of nephrolithiasis Plan: * Continue with ICU management, on high flow oxygen, nonrebreather continue patient on IV Solu-Medrol and IV Zosyn, management for COPD exacerbation. CT chest was done on 01/04 negative for pulmonary embolism did show consolidation and right middle lobe and right upper and lower lobes * Consulted pain management is appreciated and patient currently is on fentanyl and oxycodone when necessary * In regards to urinary renal failure, nephrology following, Lasix and hypertensive medications Cozaar and amlodipine on hold will monitor renal function * Patient seen by multiple specialities including hematology oncology, pulmonary medicine, nephrology * In regards to history of CVA, patient was on Lipitor which has been discontinued secondary to liver failure * In regards to liver lesions Due to respiratory status unable to have further workup done including MRI liver Time with Patient: Greater than 30
[2023-01-07 12:50] LABS: Glucose,Whole Blood 134 mg/dL (70-110)
--- NOTE | 2023-01-07 13:31 | P.PN ---
Subjective Progress Note Date: 01/07/23 Principal diagnosis: abdominal pain Patient was seen in the ICU at today's visit. He reports no pain at this time. He is in no respiratory distress. Pt has been transitioned from bipap to NRB, SPO2 88-89%. LFTS continue to be elevated, bilirubin normal, 1.1. Counts stable, WBC 4.3, hgb 8.0, plt 82,000 Objective - Vital Signs Vital signs: Vital Signs Temp 98.0 F 01/07/23 12:00 Pulse 70 01/07/23 13:00 Resp 12 01/07/23 13:00 BP 125/64 01/07/23 13:00 Pulse Ox 92 L 01/07/23 13:00 FiO2 60 01/07/23 12:00 Intake & Output 01/06/23 01/07/23 01/07/23 18:59 06:59 18:59 Intake Total 2060 740 630 Output Total 1260 635 520 Balance 800 105 110 Weight 97.2 kg 97.2 kg Intake: IV 350 240 150 0.9 150 140 50 Piperacillin-Tazobactam 3 200 100 100 .375 gm In Sodium Chloride 0.9% 100 ml @ 25 mls/hr IVPB Q8H [facility] Rx#: [id number] Oral 1710 500 480 Output: Urine 1260 635 520 Other: Voiding Method Indwelling Catheter Indwelling Catheter - Constitutional General appearance: Present: no acute distress, obese - EENT Eyes: Present: anicteric sclerae, EOMI ENT: Present: hearing grossly normal - Respiratory Details: breathing mildly labored - Cardiovascular Details: skin warm and dry - Peripheral edema leg Peripheral Edema: bilateral: 2+, Pitting - Gastrointestinal General gastrointestinal: Absent: tenderness - Integumentary Integumentary Comment(s): bruising to BUE - Musculoskeletal Musculoskeletal: Present: generalized weakness - Psychiatric Psychiatric: Present: A&O x's 3, appropriate affect, intact judgment & insight - Labs CBC & Chem 7: 01/07/23 03:43 01/07/23 03:43 Labs: Abnormal Lab Results - Last 24 Hours (Table) 01/06/23 01/06/23 01/07/23 Range/Units 16:50 20:24 02:13 RBC (4.30-5.90) m/uL Hgb (13.0-17.5) gm/dL Hct (39.0-53.0) % Plt Count (150-450) k/uL Sodium (137-145) mmol/L BUN (9-20) mg/dL Creatinine (0.66-1.25) mg/dL Glucose (74-99) mg/dL POC Glucose (mg/dL) 143 H 154 H 184 H (70-110) mg/dL Calcium (8.4-10.2) mg/dL Ionized Calcium Aliza (4.5-5.3) mg/dL AST (17-59) U/L ALT (4-49) U/L Alkaline Phosphatase (38-126) U/L Total Protein (6.3-8.2) g/dL Albumin (3.5-5.0) g/dL 01/07/23 01/07/23 01/07/23 Range/Units 03:43 03:43 05:25 RBC 2.37 L (4.30-5.90) m/uL Hgb 8.0 L (13.0-17.5) gm/dL Hct 22.4 L (39.0-53.0) % Plt Count 82 L (150-450) k/uL Sodium 135 L (137-145) mmol/L BUN 63 H (9-20) mg/dL Creatinine 1.47 H (0.66-1.25) mg/dL Glucose 147 H (74-99) mg/dL POC Glucose (mg/dL) (70-110) mg/dL Calcium 6.4 L* (8.4-10.2) mg/dL Ionized Calcium Aliza 3.8 L (4.5-5.3) mg/dL AST 610 H (17-59) U/L ALT 166 H (4-49) U/L Alkaline Phosphatase 251 H (38-126) U/L Total Protein 5.8 L (6.3-8.2) g/dL Albumin 2.9 L (3.5-5.0) g/dL 01/07/23 01/07/23 Range/Units 06:26 12:47 RBC (4.30-5.90) m/uL Hgb (13.0-17.5) gm/dL Hct (39.0-53.0) % Plt Count (150-450) k/uL Sodium (137-145) mmol/L BUN (9-20) mg/dL Creatinine (0.66-1.25) mg/dL Glucose (74-99) mg/dL POC Glucose (mg/dL) 151 H 134 H (70-110) mg/dL Calcium (8.4-10.2) mg/dL Ionized Calcium Aliza (4.5-5.3) mg/dL AST (17-59) U/L ALT (4-49) U/L Alkaline Phosphatase (38-126) U/L Total Protein (6.3-8.2) g/dL Albumin (3.5-5.0) g/dL - Imaging and Cardiology Chest x-ray: report reviewed Assessment and Plan (1) Hypercalcemia Current Visit: Yes Status: Resolved Priority: High Code(s): E83.52 - HYPERCALCEMIA SNOMED Code(s): 14080808 (2) Liver lesion Current Visit: Yes Status: Acute Priority: High Code(s): K76.9 - LIVER DISEASE, UNSPECIFIED SNOMED Code(s): 669946065 Plan: Liver lesion -Outpatient plans for biopsy-cancelled at this time due to respiratory status and unable to lay flat. MRI of the liver also unable to be obtained at this time due to acute condition. Spoke to patient in depth regarding that we will need to get his acute respiratory status controlled prior to proceeding with any further testing. He verbalized understanding -CEA elevated at 4441 -EGD and colonoscopy completed, cecal polyp and ascending colon polyp. Pathology reporting tubular adenoma Abdominal pain -Pain mgmt consulted and managing. -Buttocks/coccyx pain from laying and pt not being able to adjust his body weight himself. He is being positioned by staff -Pt being treated for constipation. Shortness of breath -Persistent. -Repeat CXR reports stable findings on the right, slightly worse at left base. Continues on zosyn -Pulmonary following and treating Hypercalcemia-resolved -Treated with calcitonin and zometa. -NM bone scan report reads marked heterogeneous uptake in christy ribs, vertebral column, pelvis, calvarium and these correspond to abn marrow appearance on CT, could be metabolic vs occult malignancy. Pending biopsy of suspicious liver lesions. -PTH significantly low, 5.4. PTHrP is normal. -Most likely hypercalcemia of malignancy, resolved with treatment. Will recur if due to malignancy/without treatment of malignancy. Will continue to monitor calcium levels
[2023-01-07 13:38] LABS: Appearance,Urine Cloudy (Clear); Bacteria,Urine Rare /hpf; Bilirubin,Urine Negative (Negative); Blood,Urine Large (Negative); Color,Urine Yellow; Glucose,Urine (UA) Negative (Negative); Ketones,Urine Negative (Negative); Leukocyte Esterase,Urine Moderate (Negative); Mucus,Urine Rare /hpf; Nitrite,Urine Negative (Negative); PH, Urine 5.5 (5.0-8.0); Protein,Urine 1+ (Negative); RBC,Urine 14 /hpf (0-5); Red Blood Cell Casts,Urine 11 /lpf (0); Specific Gravity,Urine 1.018 (1.001-1.035); Urobilinogen,Urine <2.0 mg/dL (<2.0); WBC,Urine 17 /hpf (0-5)
[2023-01-07 16:20] LABS: Glucose,Whole Blood 158 mg/dL (70-110)
[2023-01-07 20:14] LABS: Glucose,Whole Blood 174 mg/dL (70-110)
[2023-01-08] MEDS: methylPREDNISolone SOD SUCCI 125 MG/2 ML VIAL IV SCH ×5 (01:00→23:58)
[2023-01-08] MEDS: MORPHINE SULFATE 4 MG/ML SYRINGE IVP PRN ×4 (01:37→22:46)
[2023-01-08] MEDS: PIPERACILLIN-TAZOBACTAM 3.375 GM in SODIUM CHLORIDE 0.9% 100 ML IVPB SCH ×2 (03:00→09:02)
[2023-01-08 05:46] LABS: HCT 24.8 % (39.0-53.0); HGB 8.3 gm/dL (13.0-17.5); MCH 31.7 pg (25.0-35.0); MCHC 33.4 g/dL (31.0-37.0); MCV 95.1 fL (80.0-100.0); Mean Platelet Volume 9.4; RDW 15.4 % (11.5-15.5); WBC 5.5 k/uL (3.8-10.6)
[2023-01-08 05:47] LABS: Platelet Count 94 k/uL (150-450)
[2023-01-08 06:15] LABS: Glucose,Whole Blood 181 mg/dL (70-110)
[2023-01-08] MEDS: INSULIN ASPART (NovoLOG) 100 UNIT/ML VIAL SQ SCH ×4 (06:44→21:29)
[2023-01-08 07:06] LABS: African American GFR (CKD) 72 (>60 ml/min/1.73 sqM); Anion Gap 6 mmol/L; Blood Urea Nitrogen 56 mg/dL (9-20); Calcium 6.7 mg/dL (8.4-10.2); Carbon Dioxide 27 mmol/L (22-30); Chloride 104 mmol/L (98-107); Glucose 155 mg/dL (74-99); Non-African American GFR(CKD) 62 (>60 ml/min/1.73 sqM); Potassium 4.5 mmol/L (3.5-5.1); Sodium 137 mmol/L (137-145)
[2023-01-08] MEDS: BUDESONIDE 1 MG/2 ML NEBU INHALATION SCH ×2 (08:18→20:35)
[2023-01-08] MEDS: FORMOTEROL FUMARATE 20 MCG/2 ML NEBU INHALATION SCH ×2 (08:18→20:35)
[2023-01-08] MEDS: IPRATROPIUM-ALBUTEROL 3 ML NEB INHALATION SCH ×4 (08:18→20:35)
[2023-01-08] MEDS: DOCUSATE 100 MG CAP PO SCH ×2 (09:01→21:29)
[2023-01-08] MEDS: EZETIMIBE 10 MG TAB PO SCH (09:01)
[2023-01-08] MEDS: SENNOSIDES-DOCUSATE SODIUM 1 EACH TAB PO SCH ×2 (09:01→21:29)
[2023-01-08] MEDS: THIAMINE 100 MG TAB PO SCH (09:01)
[2023-01-08] MEDS: METOPROLOL TARTRATE 25 MG TAB PO SCH ×2 (09:01→21:29)
[2023-01-08] MEDS: PANTOPRAZOLE 40 MG/10 ML VIAL IV SCH ×2 (09:01→21:29)
[2023-01-08] MEDS: BACLOFEN 10 MG TAB PO SCH ×2 (09:01→21:29)
[2023-01-08] MEDS: DULoxetine HCL 30 MG CAPSULE.DR PO SCH ×2 (09:01→21:29)
--- NOTE | 2023-01-08 10:23 | P.PN ---
Subjective Progress Note Date: 01/08/23 67-year-old male patient was transferred to us from [facility] for diffuse pain. The pain is mainly across his chest and upper abdomen and across the rib cage addition to chronic back pain. Is known to have chronic dyspnea and the patient is noted COPD and a left lung pulmonary nodule that has been followed up on outpatient basis. Initially went to [facility] and his calcium level was noted to be elevated. Based on his ongoing symptoms, he was referred to us. His current calcium level is at 13. He did not have any previous issues with hypercalcemia. Is known to have COPD, pulmonary nodule, coronary artery disease and extensive peripheral vascular disease and the sruthi ent has undergone previous vascular bypass surgery and stenting to the lower extremities. He is also known to have previous history of DVT. Maintain on long-term anticoagulants. At the same time, the patient has hypertension, hyperlipidemia, obesity, chronic back pain and a recent MRI from August 2022 showed wedging of the L2 spine in the order of 15% without any acute fractures. There is also multilevel spondylitic changes and mildly prominent narrowing due to facet arthropathy and disc space narrowing at the level of L4-L5 and old compression fracture the level of L2. Mild edema in the anterior L3 vertebral and posterior L5 vertebral and there is no evidence of any significant lumbar s tenosis. The computed tomography scan of the abdomen and pelvis that was done in 09/22/2022 showed moderate to severe narrowing throughout the bilateral external iliac arteries and a stent in the superficial femoral artery was patent on the left. There was cholelithiasis and moderate atherosclerotic changes throughout the abdominal aorta and colonic diverticulosis. There are atelectatic changes in the right posterior base. On today's evaluation 01/03/2023, the patient remains hypoxic and the patient remains on 15 L of oxygen by nasal cannula high flow to maintain a saturation above 90%. He is still being investigated for an underlying malignancy as the patient has an elevated CEA level and he presented to us with hypercalcemia. The patient was treated for hypercalcemia and he was given a combination of calcitonin and Zometa. His PTH level is low and PTH related peptide still pending. He also has a liver lesion and he was supposed to undergo an MRI of his liver for better characterization of the liver mass and the patient was unable to tolerate to lay down flat. He had a chest x-ray was showing the development of a right midlung patchy airspace disease most on the right upper lobe and to also some airspace opacities in the left lung base concerning for pneumonia. Repeat chest x-ray was done and the patient showed improvement in the right upper lobe pulmonary infiltrate with bilateral lower lobe pulmonary infiltrates and small effusion. Lung volumes are essentially small. The patient remains on broad-spectrum antibiotics. The patient is on IV Zosyn for now. He is also having significant amount of edema lower extremity bilaterally and he remains on IV Lasix 40 mg every 12 hours. He remains on bronchodilators. Oncologist on the case. Final diagnoses not been achieved yet. On today's evaluation of 01/04/2023, the patient's condition is somewhat decom pensated. He was placed on 100% nonrebreather facemask in addition to the 15 L of oxygen by nasal cannula to maintain a saturation above 90%. I repeated the chest x-ray and there is evidence of bibasilar atelectasis and there is continued improvement and resolution of the right upper lobe pulmonary infiltrates. X-ray of the abdomen also showed some stable dilated bowel loops unchanged from previous evaluation. The transverse colon and the right colon appears to be dilated out of proportion to the left colon. Partial obstruction/ileus cannot be completely excluded. Extensive retained breathes in the right colon could be related to underlying constipation. The patient has no abdominal pain. Abdomen is slightly distended. The patient remains on diuretics. The patient is producing urine output. Continues to have significant amount of edema lower extremity bilaterally. Remains on IV Zosyn. Remains on IV Lasix. Remains on bronchodilators and steroids. On 01/05/2023, the patient is being seen in the intensive care unit. The patient got transferred to the ICU because of progressive hypoxemia. The patient was placed on a BiPAP and the patient is currently on BiPAP at a pres sure of 14/10 cm of water with FiO2 of 100%. A CT angiogram was done yesterday that showed no evidence of any pulmonary embolism. The CT angiogram showed atelectatic changes in lung bases bilaterally involving the lower lobes and some limited patchy groundglass pulmonary infiltrates and the right upper lobe and the right lower lobe in addition to some background emphysema. However, the abnormalities that were seen are not significant and the patient's hypoxemia remains out of proportion to the CAT scan findings. The patient was also demonstrated to have a T7 compression fracture with 50% height loss. 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 The patient remains on a combination of antibiotics and diuretics. The patient is currently on IV Zosyn and the patient is also receiving Lasix 40 mg IV every 12 hours. The patient remains in negative fluid balance of the lower extremity edema has been improving. The blood gas from today shows a pH of 7.44 with a pC O2 of 40 and pO2 of 61. BUN is at 40 with a creatinine of 1.1 and a sodium level is at 135. The white cell count of 5.5 with a hemoglobin of 9.9. Abdomen is still distended. If at some of the abdomen was done yesterday and it showed stable dilated bowel loops unchanged compared to the earlier x-ray of 01/02/2023. The bowel gas pattern is nonspecific. Transfers: And right colon does appear to be dilated out of proportion to the left. Partial obstruction is within depression diagnosis. Is also extensive retained degrees and stool and the right colon suggesting the possibility of constipation. The patient is currently on a combination of laxatives and the patient is currently receiving senna and Colace. He is awake and alert and communicating at this point in time. 01/06/2023, the patient is awake and alert and communicating. He was taken off the BiPAP and he was placed on a high flow 15 L in addition to nonrebreather facemask with a pulse ox of 94-95%. Chest x-ray findings remain unchanged and stable. No major events overnight. The patient continues to diurese. Urine ou tput is adequate for now. The patient remains on IV Lasix. BUN is at 56 with a creatinine of 1.6 and obviously diuresis needs to be held for now due to development of some prerenal azotemia. Sodiums of 136, potassium levels at 4.3, the bronchoscope was at 4.7 with a hemoglobin of 8.7. The patient remains on IV Zosyn. The abdomen is softer on today's evaluation. He passed a lot of gas yesterday. 01/07/2023 the patient is on a BiPAP at a pressure of 14/10 with an FiO2 of 50% and he has a pulse ox between 94-96%. Is able to generate adequate tidal volumes. His minute ventilation is nonelevated. He is breathing comfortably. He has a congested cough. No significant sputum production and the patient remains on IV Zosyn. The patient's otherwise has no other complaints. Diuretics were held as the patient will have developed an acute kidney injury and the creatinine was up to 1.6 and currently is down to 1.4. Sodium is at 135. White cell cause of 4.3 with a hemoglobin of 8. Chest x-rays are being monitored in the most recent chest x-ray yesterday shows no major abnormalities. Lungs are well expanded and there is some residual patchy right mid lung opacity and some in the left base. There is also some minimal interstitial changes. LFTs are abnormal and the patient has evidence of hepatic steatosis. Ultrasound the liver that was done on 01/02/2023 showed no evidence of any fluid within the abdomen. His CAT scan of the abdomen and pelvis that was done on 12/24/2022 showed innumerable small nodules throughout the liver possibility of liver cirrhosis versus diffuse metastatic disease. He is also known to have cholelithiasis and mild sigmoid colon diverticulosis. On 01/08/2023, the patient is on a BiPAP at pressure 14/8 with an FiO2 of 60% with a pulse ox of 95%. Remains on IV Zosyn. Remains on steroids. Generator tidal volume is above 700 on the BiPAP and a minute ventilation is around 10 L/m. His calm and comfortable in his breathing is nonlabored. He becomes hypoxic once off the BiPAP. Another child will be given with high flow oxygen. The patient otherwise has no new complaints and no significant events over the past 24 hours. Unfortunately, no clear explanation for his hypoxemia. CT of the chest showed no evidence of any pulmonary embolism. That showed background COPD with some limited interstitial infiltrates most on the right. Kidney function is improving and the creatinine is down to 1.2 with a BUN of 56. Diuretics were held for the past 48 hours. Sodium levels of 137. No evidence currently of 5.5 with a hemoglobin of 8.3. Remains on bronchodilators. Cardiac rhythm is sinus. Hemodynamically stable. No pressors. The BiPAP Objective - Vital Signs Vital signs: Vital Signs Temp 98.2 F 01/08/23 04:00 Pulse 67 01/08/23 10:00 Resp 15 01/08/23 10:00 BP 133/67 01/08/23 10:00 Pulse Ox 94 L 01/08/23 10:00 FiO2 60 01/08/23 08:00 Intake & Output 01/07/23 01/08/23 01/08/23 18:59 06:59 18:59 Intake Total 1070 360 Output Total 755 1330 120 Balance 315 -970 -120 Weight 97.2 kg 102.5 kg Intake: IV 250 360 0.9 150 260 Piperacillin-Tazobactam 3 100 100 .375 gm In Sodium Chloride 0.9% 100 ml @ 25 mls/hr IVPB Q8H [facility] Rx#: [id number] Oral 820 Output: Urine 755 1330 120 Other: Voiding Method Indwelling Catheter Indwelling Catheter Indwelling Catheter - Exam Gen. appearance obese, comfortable, no acute distress BMI 30.4 Currently on BiPAP at pressure 14/8 cm of water Head exam was generally normal. There was no scleral icterus or corneal arcus. Mucous membranes were moist. Neck was supple and without jugular venous distension, thyromegaly, or carotid bruits. Carotids were easily palpable bilaterally. There was no adenopathy. Lungs sounds are diminished bilaterally and the patient has scattered expiratory wheeze Cardiac exam revealed the PMI to be normally situated and sized. The rhythm was regular and no extrasystoles were noted during several minutes of auscultation. The first and second heart sounds were normal and physiologic splitting of the second heart sound was noted. There were no murmurs, rubs, clicks, or gallops. Abdominal exam revealed normal bowel sounds. The abdomen was soft, non-tender, and without masses, organomegaly, or appreciable enlargement of the abdominal aorta. Abdomen is distended with hypoactive bowel sounds. No direct tenderness. No rebound tenderness or guarding Examination of the extremities revealed easily palpable radial, femoral and pedal pulses. There was no cyanosis, clubbing or edema. Examination of the skin revealed no evidence of significant rashes, suspicious appearing nevi or other concerning lesions. Neurologically, the patient is awake and alert and the patient does not have any focal neurological deficit. Cranial nerves are essentially intact. - Labs CBC & Chem 7: 01/08/23 05:20 01/08/23 05:20 Labs: Abnormal Lab Results - Last 24 Hours (Table) 01/07/23 01/07/23 01/07/23 Range/Units 12:00 12:47 16:19 RBC (4.30-5.90) m/uL Hgb (13.0-17.5) gm/dL Hct (39.0-53.0) % Plt Count (150-450) k/uL BUN (9-20) mg/dL Glucose (74-99) mg/dL POC Glucose (mg/dL) 134 H 158 H (70-110) mg/dL Calcium (8.4-10.2) mg/dL Urine Protein 1+ H (Negative) Urine Blood Large H (Negative) Ur Leukocyte Esterase Moderate H (Negative) Urine RBC 14 H (0-5) /hpf Urine WBC 17 H (0-5) /hpf Urine Bacteria Rare H (None) /hpf Urine Mucus Rare H (None) /hpf 01/07/23 01/08/23 01/08/23 Range/Units 20:13 05:20 05:20 RBC 2.60 L (4.30-5.90) m/uL Hgb 8.3 L (13.0-17.5) gm/dL Hct 24.8 L (39.0-53.0) % Plt Count 94 L (150-450) k/uL BUN 56 H (9-20) mg/dL Glucose 155 H (74-99) mg/dL POC Glucose (mg/dL) 174 H (70-110) mg/dL Calcium 6.7 L (8.4-10.2) mg/dL Urine Protein (Negative) Urine Blood (Negative) Ur Leukocyte Esterase (Negative) Urine RBC (0-5) /hpf Urine WBC (0-5) /hpf Urine Bacteria (None) /hpf Urine Mucus (None) /hpf 01/08/23 Range/Units 06:13 RBC (4.30-5.90) m/uL Hgb (13.0-17.5) gm/dL Hct (39.0-53.0) % Plt Count (150-450) k/uL BUN (9-20) mg/dL Glucose (74-99) mg/dL POC Glucose (mg/dL) 181 H (70-110) mg/dL Calcium (8.4-10.2) mg/dL Urine Protein (Negative) Urine Blood (Negative) Ur Leukocyte Esterase (Negative) Urine RBC (0-5) /hpf Urine WBC (0-5) /hpf Urine Bacteria (None) /hpf Urine Mucus (None) /hpf Assessment and Plan Plan: Assessment and Plan Assessment: Acute hypoxic respiratory failure with multilobar pneumonia more so on the right upper lobe/right middle lobe area, improving with IV Zosyn. The patient became progressively more hypoxic. A repeat CTA of the chest was done that showed no evidence of any pulmonary embolism. There was some residual groundglass pulmonary infiltrates in the right upper lobe and the right lower lobe in ad dition to extensive atelectatic change in lung bases bilaterally. There is background emphysema. The patient is on BiPAP at a pressure of 14/8 cm of water with FiO2 of 60%. Oxygenation is stable at this point in time. Shortness of breath secondary to above Diffuse skeletal pain involving the chest wall and back. Bone scan did reveal marked heterogenous uptake involving the bilateral rib cage, vertebral column, pelvis and calvarium appears to correspond to abnormal marrow appearance of the visualized osseous structures on CAT scan. Suspect malignancy. Carcinoembryonic antigen 4441. CA 199 antigen 69.5. Colonoscopy from 12/23/2022 revealed a 5 mm cecal and a 1 cm ascending colon polyps status post biopsies. Pathology pending. No masses identified. He will need a liver biopsy. Xarelto, Aspirin and Plavix remain on hold. Computed tomography scan of the abdomen revealed innumerable small nodules throughout the liver. Heterogenous appearance to the osseous structures. Given the liver findings, correlate for potential infiltrative disease or diffuse osseous metastatic disease. CT angiogram from 12/26/2022 ruled out pulmonary embolism. Abdominal distention with possible constipation and fecal debris is in the right colon. The transverse and the left side is also dilated. The patient is passing gas. He will receive an enema today Acute kidney injury, likely secondary to diuresis. Continues to have lower extremity edema bilaterally. Creatinine is stable for now Hypercalcemia. Received Zometa. Calcium level improved. Left lower lobe pulmonary nodule measuring 1.5 cm, will need an outpatient PET CT and further investigation. Probable metastatic disease to the lung. Coronary artery disease. Vascular disease with a previous fem-pop bypass surgery. Bilateral carotid endarterectomies. Coronary artery disease and coronary stenting. Previous history of CVA. Previous history of DVT of the left lower extremity. Previous history of Covid 19 infection in February 2021. Hypertension. Hyperlipidemia. Abnormal LFTs with cholelithiasis without evidence of cholecystitis. The patient has diffuse multiple liver lesions, likely metastatic History of nephrolithiasis. Plan: Overall condition is stable. We'll try to get this patient off the BiPAP and use high flow oxygen Airvo Continue IV Zosyn Keep the Lasix on hold He did stool following an enema Multiple liver lesions and LFTs are abnormal Calcium level is normalized Continue laxatives regarding abdominal distention. We'll continue with oncology Obviously malignancy workup can be also on an outpatient basis once the patient is more stable and oxygen patient is further improved. She the patient will need a PET/CT We'll continue to follow Condition is critical and the patient will be kept in the ICU for now Time with Patient: Less than 30
[2023-01-08 11:22] LABS: Glucose,Whole Blood 150 mg/dL (70-110)
--- NOTE | 2023-01-08 11:50 | P.PN ---
Subjective Patient is seen for follow-up for acute kidney injury. He was initially being followed for hypercalcemia however his serum calcium had improved from 13.0 and was actually low at 6.5-6.3 g/dL recently. There is high suspicion for underlying malignancy with liver nodules and significantly elevated carcinoembryonic antigen. Biopsy of the liver nodules is on hold and to be scheduled as outpatient. Patient was transferred to the ICU for acute hypoxic respiratory failure. Patient was maintained on Lasix and it is now on hold. Chest x-ray is not suggestive of CHF. Serum creatinine increased to 1.6 but has decreased to 1.2 today. Cozaar and N orvasc were discontinued due to low blood pressure. Urine output at 70 - 150 ML per hour Currently not on any IV fluids. Maintained on high flow oxygen. Objective - Vital Signs Vital signs: Vital Signs Temp 98.2 F 01/08/23 04:00 Pulse 68 01/08/23 11:33 Resp 23 01/08/23 11:00 BP 139/70 01/08/23 11:00 Pulse Ox 88 L 01/08/23 11:00 FiO2 75 01/08/23 10:53 Intake & Output 01/07/23 01/08/23 01/08/23 18:59 06:59 18:59 Intake Total 1070 360 Output Total 755 1330 245 Balance 315 -970 -245 Weight 97.2 kg 102.5 kg Intake: IV 250 360 0.9 150 260 Piperacillin-Tazobactam 3 100 100 .375 gm In Sodium Chloride 0.9% 100 ml @ 25 mls/hr IVPB Q8H [facility] Rx#: [id number] Oral 820 Output: Urine 755 1330 245 Other: Voiding Method Indwelling Catheter Indwelling Catheter Indwelling Catheter - Exam Awake, comfortable, in no acute distress Examination of the heart S1 and S2 Examination the lungs decreased breath sounds at the bases Abdomen is soft, mild tenderness left upper abdomen Examination of lower extremity shows 2+ edema bilateral COLD STRIP FEEDER exam grossly intact - Labs CBC & Chem 7: 01/08/23 05:20 01/08/23 05:20 Labs: Abnormal Lab Results - Last 24 Hours (Table) 01/07/23 01/07/23 01/07/23 Range/Units 12:00 12:47 16:19 RBC (4.30-5.90) m/uL Hgb (13.0-17.5) gm/dL Hct (39.0-53.0) % Plt Count (150-450) k/uL BUN (9-20) mg/dL Glucose (74-99) mg/dL POC Glucose (mg/dL) 134 H 158 H (70-110) mg/dL Calcium (8.4-10.2) mg/dL Urine Protein 1+ H (Negative) Urine Blood Large H (Negative) Ur Leukocyte Esterase Moderate H (Negative) Urine RBC 14 H (0-5) /hpf Urine WBC 17 H (0-5) /hpf Urine Bacteria Rare H (None) /hpf Urine Mucus Rare H (None) /hpf 01/07/23 01/08/23 01/08/23 Range/Units 20:13 05:20 05:20 RBC 2.60 L (4.30-5.90) m/uL Hgb 8.3 L (13.0-17.5) gm/dL Hct 24.8 L (39.0-53.0) % Plt Count 94 L (150-450) k/uL BUN 56 H (9-20) mg/dL Glucose 155 H (74-99) mg/dL POC Glucose (mg/dL) 174 H (70-110) mg/dL Calcium 6.7 L (8.4-10.2) mg/dL Urine Protein (Negative) Urine Blood (Negative) Ur Leukocyte Esterase (Negative) Urine RBC (0-5) /hpf Urine WBC (0-5) /hpf Urine Bacteria (None) /hpf Urine Mucus (None) /hpf 01/08/23 01/08/23 Range/Units 06:13 11:21 RBC (4.30-5.90) m/uL Hgb (13.0-17.5) gm/dL Hct (39.0-53.0) % Plt Count (150-450) k/uL BUN (9-20) mg/dL Glucose (74-99) mg/dL POC Glucose (mg/dL) 181 H 150 H (70-110) mg/dL Calcium (8.4-10.2) mg/dL Urine Protein (Negative) Urine Blood (Negative) Ur Leukocyte Esterase (Negative) Urine RBC (0-5) /hpf Urine WBC (0-5) /hpf Urine Bacteria (None) /hpf Urine Mucus (None) /hpf Assessment and Plan Assessment: 1. Hypercalcemia rule out underlying malignancy. PTH is appropriately suppressed. CEA is significantly elevated and multiple liver nodules noted on abdominal CT. Biopsy is planned as outpatient. 2. Multilobar pneumonia 3. Multiple liver nodules suspicious of metastatic disease 4. Acute kidney injury, nonoliguric ATN secondary to low blood pressure. Improved 5. Lower extremity edema. Check urine analysis to rule out proteinuria Plan: Continue off of angiotensin receptor blockers We will sign off
--- NOTE | 2023-01-08 13:21 | P.PN ---
Subjective Progress Note Date: 01/08/23 Principal diagnosis: Hypercalcemia with liver lesions concerning for metastatic malignancy -No acute events overnight -Transition from BiPAP to high flow nasal cannula this morning -Notes having pain in the right shoulder and back with no subjective dyspnea -No abdominal pain noted today Objective - Vital Signs Vital signs: Vital Signs Temp 98.2 F 01/08/23 04:00 Pulse 68 01/08/23 11:33 Resp 23 01/08/23 11:00 BP 139/70 01/08/23 11:00 Pulse Ox 88 L 01/08/23 11:00 FiO2 75 01/08/23 10:53 Intake & Output 01/07/23 01/08/23 01/08/23 18:59 06:59 18:59 Intake Total 1070 360 Output Total 755 1330 245 Balance 315 -970 -245 Weight 97.2 kg 102.5 kg Intake: IV 250 360 0.9 150 260 Piperacillin-Tazobactam 3 100 100 .375 gm In Sodium Chloride 0.9% 100 ml @ 25 mls/hr IVPB Q8H [facility] Rx#: [id number] Oral 820 Output: Urine 755 1330 245 Other: Voiding Method Indwelling Catheter Indwelling Catheter Indwelling Catheter - Constitutional Constitutional Comment(s): Fatigued appearing General appearance: Present: cooperative - EENT Eyes: Present: EOMI - Respiratory Details: Mildly labored breathing with accessory neck muscle use Respiratory: right: other (Crackles appreciated at the right lung base), left: wheezing (Left anterior lung field) - Cardiovascular Rhythm: regular - Gastrointestinal General gastrointestinal: Present: distended, normal bowel sounds. Absent: tenderness - Integumentary Integumentary: Present: pale - Neurologic Neurologic: Absent: focal deficits - Labs CBC & Chem 7: 01/08/23 05:20 01/08/23 05:20 Labs: Abnormal Lab Results - Last 24 Hours (Table) 01/07/23 01/07/23 01/07/23 Range/Units 12:00 16:19 20:13 RBC (4.30-5.90) m/uL Hgb (13.0-17.5) gm/dL Hct (39.0-53.0) % Plt Count (150-450) k/uL BUN (9-20) mg/dL Glucose (74-99) mg/dL POC Glucose (mg/dL) 158 H 174 H (70-110) mg/dL Calcium (8.4-10.2) mg/dL Urine Protein 1+ H (Negative) Urine Blood Large H (Negative) Ur Leukocyte Esterase Moderate H (Negative) Urine RBC 14 H (0-5) /hpf Urine WBC 17 H (0-5) /hpf Urine Bacteria Rare H (None) /hpf Urine Mucus Rare H (None) /hpf 01/08/23 01/08/23 01/08/23 Range/Units 05:20 05:20 06:13 RBC 2.60 L (4.30-5.90) m/uL Hgb 8.3 L (13.0-17.5) gm/dL Hct 24.8 L (39.0-53.0) % Plt Count 94 L (150-450) k/uL BUN 56 H (9-20) mg/dL Glucose 155 H (74-99) mg/dL POC Glucose (mg/dL) 181 H (70-110) mg/dL Calcium 6.7 L (8.4-10.2) mg/dL Urine Protein (Negative) Urine Blood (Negative) Ur Leukocyte Esterase (Negative) Urine RBC (0-5) /hpf Urine WBC (0-5) /hpf Urine Bacteria (None) /hpf Urine Mucus (None) /hpf 01/08/23 Range/Units 11:21 RBC (4.30-5.90) m/uL Hgb (13.0-17.5) gm/dL Hct (39.0-53.0) % Plt Count (150-450) k/uL BUN (9-20) mg/dL Glucose (74-99) mg/dL POC Glucose (mg/dL) 150 H (70-110) mg/dL Calcium (8.4-10.2) mg/dL Urine Protein (Negative) Urine Blood (Negative) Ur Leukocyte Esterase (Negative) Urine RBC (0-5) /hpf Urine WBC (0-5) /hpf Urine Bacteria (None) /hpf Urine Mucus (None) /hpf Assessment and Plan (1) Elevated tumor markers Current Visit: Yes Status: Acute Priority: Medium Code(s): R97.8 - OTHER ABNORMAL TUMOR MARKERS SNOMED Code(s): 648053928 (2) Liver lesion Current Visit: Yes Status: Acute Priority: High Code(s): K76.9 - LIVER DISEASE, UNSPECIFIED SNOMED Code(s): 728986731 (3) Pneumonia Current Visit: Yes Status: Acute Code(s): J18.9 - PNEUMONIA, UNSPECIFIED ORGANISM SNOMED Code(s): 948445651 (4) Hypercalcemia Current Visit: Yes Status: Resolved Priority: High Code(s): E83.52 - HYPERCALCEMIA SNOMED Code(s): 09907371 Plan: Liver lesion -Outpatient plans for biopsy-cancelled at this time due to respiratory status and unable to lay flat. MRI of the liver also unable to be obtained at this time due to acute condition. Discussed today with patient regarding that we will need to get his acute respiratory status controlled prior to proceeding with any further testing. He verbalized understanding -CEA elevated at 4441 -EGD and colonoscopy completed, cecal polyp and ascending colon polyp. Pathology reporting tubular adenoma Abdominal pain -Pain mgmt consulted and managing -Buttocks/coccyx pain from laying and pt not being able to adjust his body weight himself. He is being positioned by staff -Pt being treated for constipation HCAP -Transitioned from BiPAP to high flow nasal cannula this morning -CTA on 01/04/2023 revealed no evidence of pulmonary embolism but noted groundglass opacities in the right upper and lower lung field consistent with pneumonia -Continues on Zosyn per primary ICU team Hypercalcemia-resolved -Treated with calcitonin and zometa. -NM bone scan report reads marked heterogeneous uptake in christy ribs, vertebral column, pelvis, calvarium and these correspond to abn marrow appearance on CT, could be metabolic vs occult malignancy. Pending biopsy of suspicious liver lesions. -PTH significantly low, 5.4. PTHrP is normal. -Most likely hypercalcemia of malignancy, resolved with treatment. Will recur if due to malignancy/without treatment of malignancy. Will continue to monitor calcium levels Veronica Oconnell MD
--- NOTE | 2023-01-08 13:27 | P.PN ---
Subjective Progress Note Date: 01/08/23 67-year-old male was admitted to the hospital with complaints of abdominal pain and found to have cholelithiasis and cholecystitis. Patient also has hypercalcemia. 12/20/2022 Patient is currently lying in the bed. Awake alert and oriented x3. Anxious. Complains of both right upper and and left upper quadrant abdominal pain below the rib cage. Also complaining of back pain. No complaints of nausea vomiting. Patient underwent bone scan today. Due to hypercalcemia. Oncology and nephrology is on board. Laboratory data showed WBC 10.8 hemoglobin 15.1 and platelets 132 BUN 31.4 and creatinine 1.2 and bicarb level is 20.4 anion gap 14.6. Calcium level 12.6. Tumor markers were ordered. 12/21/2022 Patient is currently lying in bed. Awake alert and oriented x3. On oxygen at 4 L via nasal cannula. Still complains of pain below the rib cage. Bone scan was done yesterday showed a markedly heterogenous uptake involving the bilateral rib cage, vertebral column pelvis and calvarium appears to correspond to abnormal marrow appearance of the visualized osseous structures of the CAT scan. Suspect occult malignancy. Otherwise patient is being continued on IV Solu-Medrol DuoNebs and antibiotics and home Zosyn. Also on anticoagulation with Xarelto. Laboratory data showed WBC 8.2 hemoglobin 14.1 and platelets 119 Sodium 138 potassium 4.6 chloride 105 bicarb is 28 BUN 24 and creatinine 1.07 AST 110 ALT 90 alk phos 160. 12/22/2022 Patient is currently lying in bed. Complains of pain. Currently on [place] and morphine sustained-release was ordered. IR guided biopsy of the liver lesion could not be done due to patient being on anticoagulation. Oncology recommends endoscopic evaluation at this time. Otherwise CT of the abdomen pelvis done yesterday showed extensive 1 to 2 cm nodules diffusely throughout the left and right lobes of the liver suspicious for metastatic disease. CEA level is elevated. Laboratory data reviewed. 2022 Patient was admitted to the hospital due to bilateral rib cage pain and hypercalcemia and work-up in process for malignancy. Currently lying in the bed. Awake alert and oriented. No complaints of fever or chills. Currently on 4 L via nasal cannula. Continued on prednisone 30 mg daily. Also, DuoNebs and anticoagulation. Patient is scheduled for EGD and colonoscopy today. Otherwise cultures showed no growth. Patient is off antibiotics currently. Laboratory data showed WBC 8.1 hemoglobin 13.6 and platelets 124 BUN 19.3 and creatinine 0.7. Calcium level came down to 8.5. 12/24/2022 Patient is today had EGD and colonoscopy showing small hiatal hernia and cecal polyp which was removed. No other significant abnormality. Patient had repeat CT of the abdomen and pelvis today showing multiple nodules of the liver suspicious for liver cirrhosis versus metastatic disease area Heterogenous appearance of the osseous structures suspicious for metastatic disease. Moderate to severe stenosis of bilateral iliac arteries and right renal artery. As well as SMA. Cholelithiasis and diverticulitis. Prostate gland calcification 1.1 cm. Left humeral head avascular necrosis with yearly subarticular collapse The plan for him is to get never biopsy however we need to hold Plavix and Eliquis prior to that. There was possible to discharge and the patient and do the procedure as an outpatient and follow-up with oncologist as an outpatient on , however patient still complaining of from severe bilateral rib cage pain and tenderness related most likely due to metastatic disease. Upon consult is obtained. Also patient most likely will have biopsy next week. Discussed with staff 12/25/2022 Patient today looks less lethargic and sitting up in chair, however he is more short of breath and Solu-Medrol is adequate. Repeat chest x-ray showed possible right lower pneumonia and Zosyn is added. proCalcitonin is pending. Also liver biopsy is pending 12/26/2022 pt is still lethargic but alert and awake , lying in bed with generalized we akness, he say his chest and rib cage pain is there but feels tolerable he remains on zosyn and solumedrol 40 mg pending liver [facility]x [facility] repeated today: neg for PE 12/27/2022 pt clinically looks similar to the last few day, somewhat lewthargic and week , slighly tachypneic due to rib cage pain , tumour mass, and possible fluid overload. he is on 5 L of O2 via nasal cannula he supposed to get liver biopsy but per oncology input this may not be feasable as per notes from the IR team . other options are PET scan which is typically done as outpatient usually, or diagnostic thoracocentasis, we will defer to oncology team the decision on how to obtain the tissue diagnosis pt got one dose of lasix today which looks it helped him a little bit he is on zosyn and solumedrol 40 mg at bed side and all their questions were answered 12/28/2022 No significant change, still tired and weak . Other that he is hemodynamically stable. No new complaint. Patient remains on Zosyn. IV Solu-Medrol switched to prednisone 20 mg. That looks like patient cannot get liver biopsy per IR team. We will discuss with hematology/oncology team further recommendation and the next step in the diagnosis. 12/29/2022 Patient awake alert does not look in much distress, maybe mild oral no respiratory distress, somewhat tachypneic. Last that his oxygen requirement went up and currently he is on high flow nasal cannula with a flow rate of 55 L/m and FiO2 of 100%. Repeated chest x-ray showing no much change from previous still has patchy infiltrates on both sides, transected looks even slightly better on radiology notes. Steroids has been bumped up to 60 mL again this morning. Also she remains on Zo syn. Also patient has some abdominal distention but he tolerates that well, no abdominal pain and tenderness or vomiting. He is passing flatus but he complains from constipation over the last few days. Patient is not to take narcotic pain medication and he is on senna only therefore we added MiraLAX when necessary and Colace with a close monitoring. Oncology team is working on obtaining a biopsy diagnosis for the patient prior to discharge or plan for that. Patient may benefit from PET scan inpatient per oncology team. Discussed with staff Resume of the care of the patient on 01/03/2023 Patient still hypoxic but improving, and oxygen requirements down to 15 L/m. He is lying in bed with no significant respiratory distress, he reports improved in breathing. No cough, no significant chest pain He has right-sided chest pain related to metastatic disease since admission and directed as it/stent and it looks controlled with fentanyl and when necessary oxycodone. Patient reports having adequate bowel movements and is agreeable with the stool softeners. He remains on Zosyn. Also he is on high-dose IV Solu-Medrol 60 mg -Lasix 40 mg twice daily added yesterday Liver biopsy could not be obtained because of the small lesion per IR, hematology/oncology team saw the case 01/04/2023 Patient today is more dyspneic and lethargic. His oxygen requirement went to 30 L/m, and was 15 with a permanent this morning. Interestingly chest x-ray showing improvement in her radiation. he Is still on Zosyn, IV Lasix for 2 without twice daily and salmederol 60 mg Check labs in the morning 01/05/2023 Patient yesterday developed more respiratory distress and A-TEAM was called for him for hypoxia and patient was eventually transferred to the ICU for further management Patient was placed on BiPAP and while in the ICU his requiring more tense sitting this morning, he was 14/10 with FiO2 of 100%. Repeat chest x-ray and CTA of the chest showed no pulmonary embolism and the groundglass opacity in the right upper lobe and the right lower lobe. Pro- calcitonin is mildly elevated. Patient has been on Zosyn for almost 10 days on continue. Reason IV Solu-Medrol 60 mg. He is on Lasix 40 mg twice daily. Discussed with staff Prognosis guarded 01/06: Patient seen and everted bedside patient complains lethargic at this point patient is currently arousable on oxygen supplementation with nonrebreather. Noted to have elevated creatinine nephrology following critical care team following 01/07: Patient seen and everted bedside. Continue to remain on high flow oxygen. Receiving IV antibiotics followed up by pulmonary medicine. Overnight liver profile has still been elevated as well. Patient placed on Ventimask. Lasix is on hold 01/08: Patient has been weaned off from BiPAP to heated high flow. Patient does complain of right chest wall pain. Renal function improves hemoglobin remained stable pulmonary medicine, nephrology following unfortunately not stable for further oncology workup at this point concerning for metastatic malignancy however needs a tissue diagnosis Objective - Vital Signs Vital signs: Vital Signs Temp 98.2 F 01/08/23 04:00 Pulse 79 01/08/23 13:00 Resp 24 01/08/23 13:00 BP 128/64 01/08/23 13:00 Pulse Ox 91 L 01/08/23 13:00 FiO2 75 01/08/23 12:00 Intake & Output 01/07/23 01/08/23 01/08/23 18:59 06:59 18:59 Intake Total 1070 360 Output Total 755 1330 245 Balance 315 -970 -245 Weight 97.2 kg 102.5 kg Intake: IV 250 360 0.9 150 260 Piperacillin-Tazobactam 3 100 100 .375 gm In Sodium Chloride 0.9% 100 ml @ 25 mls/hr IVPB Q8H [facility] Rx#: [id number] Oral 820 Output: Urine 755 1330 245 Other: Voiding Method Indwelling Catheter Indwelling Catheter Indwelling Catheter - Exam PHYSICAL EXAMINATION: GENERAL: The patient is alert and oriented x 2 , ill appearance, nasal cannula CARDIOVASCULAR: S1 and S2 present. No murmurs, lower extremity edema PULMONARY: Decreased breath sounds bilaterally, no use of accessory muscle ABDOMEN: Soft, distended, nontender on palpation. MUSCULOSKELETAL: No joint swelling or deformity. EXTREMITIES: 2+ lotion to edema noted. NEUROLOGICAL: Able to move extremities no focal deficits are noted - Labs CBC & Chem 7: 01/08/23 05:20 01/08/23 05:20 Labs: Abnormal Lab Results - Last 24 Hours (Table) 01/07/23 01/07/23 01/07/23 Range/Units 12:00 16:19 20:13 RBC (4.30-5.90) m/uL Hgb (13.0-17.5) gm/dL Hct (39.0-53.0) % Plt Count (150-450) k/uL BUN (9-20) mg/dL Glucose (74-99) mg/dL POC Glucose (mg/dL) 158 H 174 H (70-110) mg/dL Calcium (8.4-10.2) mg/dL Urine Protein 1+ H (Negative) Urine Blood Large H (Negative) Ur Leukocyte Esterase Moderate H (Negative) Urine RBC 14 H (0-5) /hpf Urine WBC 17 H (0-5) /hpf Urine Bacteria Rare H (None) /hpf Urine Mucus Rare H (None) /hpf 01/08/23 01/08/23 01/08/23 Range/Units 05:20 05:20 06:13 RBC 2.60 L (4.30-5.90) m/uL Hgb 8.3 L (13.0-17.5) gm/dL Hct 24.8 L (39.0-53.0) % Plt Count 94 L (150-450) k/uL BUN 56 H (9-20) mg/dL Glucose 155 H (74-99) mg/dL POC Glucose (mg/dL) 181 H (70-110) mg/dL Calcium 6.7 L (8.4-10.2) mg/dL Urine Protein (Negative) Urine Blood (Negative) Ur Leukocyte Esterase (Negative) Urine RBC (0-5) /hpf Urine WBC (0-5) /hpf Urine Bacteria (None) /hpf Urine Mucus (None) /hpf 01/08/23 Range/Units 11:21 RBC (4.30-5.90) m/uL Hgb (13.0-17.5) gm/dL Hct (39.0-53.0) % Plt Count (150-450) k/uL BUN (9-20) mg/dL Glucose (74-99) mg/dL POC Glucose (mg/dL) 150 H (70-110) mg/dL Calcium (8.4-10.2) mg/dL Urine Protein (Negative) Urine Blood (Negative) Ur Leukocyte Esterase (Negative) Urine RBC (0-5) /hpf Urine WBC (0-5) /hpf Urine Bacteria (None) /hpf Urine Mucus (None) /hpf Assessment and Plan Assessment: * Acute hypoxic respiratory failure with COPD exacerbation * Liver cirrhosis, cannot rule out malignancy given multiple nodules and will require liver biopsy * Right lung pneumonia multifocal * Liver failure with transaminitis multi-factorial with liver lesions noted on CT * Hypercalcemia and pain below the rib cage and also back pain. Malignancy work-up in process. Bone scan showed a markedly heterogenous uptake involving the bilateral rib cage, vertebral column pelvis and calvarium appears to correspond to abnormal marrow appearance of the visualized osseous structures of the CAT scan. Suspect occult malignancy. * COPD with exacerbation * Acute renal failure * Left lower lobe pulmonary nodule measuring 1.5 cm. Outpatient PET scan recommended by pulmonary. * Coronary artery disease with prior history of stent placement * History of CVA * Peripheral vascular disease with previous history of femoropopliteal bypass surgery. * Bilateral carotid endarterectomies * History of DVT left lower extremity * History of CVA/TIA * Hypertension * Hyperlipidemia * Elevated liver enzymes and cholelithiasis without evidence of cholecystitis. * History of nephrolithiasis Plan: * Continue with ICU management, on high flow oxygen alternating with nonrebreather continue patient on IV Solu-Medrol and IV Zosyn COMPLETED for management for COPD exacerbation, multifocal pneumonia CT chest was done on 01/04 negative for pulmonary embolism did show consolidation and right middle lobe and right upper and lower lobes * Consulted pain management is appreciated and patient currently is on fentanyl and oxycodone, he initiated gabapentin 300 mg 3 times a day * In regards to acute renal failure, nephrology following, Lasix and hypertensive medications Cozaar and amlodipine on hold due to transient hypotension will monitor renal function * Patient seen by multiple specialities including hematology oncology, pulmonary medicine, nephrology * In regards to history of CVA, patient was on Lipitor which has been discontinued secondary to liver failure * In regards to liver lesions Due to respiratory status unable to have further workup done including MRI liver, CT abdomen and pelvis done earlier hospitalization did show metastatic disease to liver>> * WORK UP SO FAR>> NM bone scan report reads marked heterogeneous uptake in christy ribs, vertebral column, pelvis, calvarium and these correspond to abn marrow appearance on CT, could be metabolic vs occult malignancy. Pending biopsy of suspicious liver lesions. CEA elevated at 4441 >> EGD and colonoscopy completed, cecal polyp and ascending colon polyp. Pathology reporting tubular adenoma.Computed tomography scan of the abdomen revealed innumerable small nodules throughout the liver. Heterogenous appearance to the osseous stru ctures. Given the liver findings, correlate for potential infiltrative disease or diffuse osseous metastatic disease. Time with Patient: Greater than 30
[2023-01-08 15:58] LABS: Glucose,Whole Blood 214 mg/dL (70-110)
[2023-01-08] MEDS: GABAPENTIN 300 MG CAP PO SCH ×2 (17:17→21:29)
[2023-01-08 20:21] LABS: Glucose,Whole Blood 167 mg/dL (70-110)
[2023-01-09] MEDS: MORPHINE SULFATE 4 MG/ML SYRINGE IVP PRN (03:07)
[2023-01-09] MEDS: methylPREDNISolone SOD SUCCI 125 MG/2 ML VIAL IV SCH ×4 (05:27→23:02)
[2023-01-09 05:33] LABS: HCT 23.1 % (39.0-53.0); MCH 32.5 pg (25.0-35.0); MCHC 34.4 g/dL (31.0-37.0); MCV 94.3 fL (80.0-100.0); Mean Platelet Volume 9.9; RBC 2.45 m/uL (4.30-5.90); RDW 15.1 % (11.5-15.5); WBC 5.5 k/uL (3.8-10.6)
[2023-01-09 05:42] LABS: ALT 148 U/L (4-49); AST 532 U/L (17-59); African American GFR (CKD) >90 (>60 ml/min/1.73 sqM); Albumin 3.1 g/dL (3.5-5.0); Alkaline Phosphatase 398 U/L (38-126); Anion Gap 7 mmol/L; Blood Urea Nitrogen 36 mg/dL (9-20); Calcium 7.1 mg/dL (8.4-10.2); Carbon Dioxide 27 mmol/L (22-30); Chloride 102 mmol/L (98-107); Glucose 149 mg/dL (74-99); Non-African American GFR(CKD) 88 (>60 ml/min/1.73 sqM); Potassium 4.2 mmol/L (3.5-5.1); Sodium 136 mmol/L (137-145); Total Bilirubin 1.1 mg/dL (0.2-1.3); Total Protein 6.3 g/dL (6.3-8.2)
[2023-01-09 05:47] LABS: Platelet Count 76 k/uL (150-450)
[2023-01-09 06:37] LABS: Glucose,Whole Blood 164 mg/dL (70-110)
[2023-01-09] MEDS: INSULIN ASPART (NovoLOG) 100 UNIT/ML VIAL SQ SCH ×4 (06:45→20:41)
[2023-01-09] MEDS: BUDESONIDE 1 MG/2 ML NEBU INHALATION SCH ×2 (08:02→20:07)
[2023-01-09] MEDS: FORMOTEROL FUMARATE 20 MCG/2 ML NEBU INHALATION SCH ×2 (08:02→20:07)
[2023-01-09] MEDS: IPRATROPIUM-ALBUTEROL 3 ML NEB INHALATION SCH ×4 (08:02→20:07)
[2023-01-09] MEDS: GABAPENTIN 300 MG CAP PO SCH ×3 (08:16→21:10)
[2023-01-09] MEDS: BACLOFEN 10 MG TAB PO SCH ×2 (08:16→21:10)
[2023-01-09] MEDS: DULoxetine HCL 30 MG CAPSULE.DR PO SCH ×2 (08:16→21:10)
[2023-01-09] MEDS: EZETIMIBE 10 MG TAB PO SCH (08:16)
[2023-01-09] MEDS: SENNOSIDES-DOCUSATE SODIUM 1 EACH TAB PO SCH ×2 (08:17→21:10)
[2023-01-09] MEDS: METOPROLOL TARTRATE 25 MG TAB PO SCH ×2 (08:17→21:10)
[2023-01-09] MEDS: THIAMINE 100 MG TAB PO SCH (08:17)
[2023-01-09] MEDS: DOCUSATE 100 MG CAP PO SCH ×2 (08:17→21:10)
[2023-01-09] MEDS: PANTOPRAZOLE 40 MG/10 ML VIAL IV SCH ×2 (08:46→20:40)
--- NOTE | 2023-01-09 09:49 | P.PN ---
Subjective Progress Note Date: 01/09/23 67-year-old male patient was transferred to us from [facility] for diffuse pain. The pain is mainly across his chest and upper abdomen and across the rib cage addition to chronic back pain. Is known to have chronic dyspnea and the patient is noted COPD and a left lung pulmonary nodule that has been followed up on outpatient basis. Initially went to [facility] and his calcium level was noted to be elevated. Based on his ongoing symptoms, he was referred to us. His current calcium level is at 13. He did not have any previous issues with hypercalcemia. Is known to have COPD, pulmonary nodule, coronary artery disease and extensive peripheral vascular disease and the sruthi ent has undergone previous vascular bypass surgery and stenting to the lower extremities. He is also known to have previous history of DVT. Maintain on long-term anticoagulants. At the same time, the patient has hypertension, hyperlipidemia, obesity, chronic back pain and a recent MRI from August 2022 showed wedging of the L2 spine in the order of 15% without any acute fractures. There is also multilevel spondylitic changes and mildly prominent narrowing due to facet arthropathy and disc space narrowing at the level of L4-L5 and old compression fracture the level of L2. Mild edema in the anterior L3 vertebral and posterior L5 vertebral and there is no evidence of any significant lumbar s tenosis. The computed tomography scan of the abdomen and pelvis that was done in 09/22/2022 showed moderate to severe narrowing throughout the bilateral external iliac arteries and a stent in the superficial femoral artery was patent on the left. There was cholelithiasis and moderate atherosclerotic changes throughout the abdominal aorta and colonic diverticulosis. There are atelectatic changes in the right posterior base. On today's evaluation 01/03/2023, the patient remains hypoxic and the patient remains on 15 L of oxygen by nasal cannula high flow to maintain a saturation above 90%. He is still being investigated for an underlying malignancy as the patient has an elevated CEA level and he presented to us with hypercalcemia. The patient was treated for hypercalcemia and he was given a combination of calcitonin and Zometa. His PTH level is low and PTH related peptide still pending. He also has a liver lesion and he was supposed to undergo an MRI of his liver for better characterization of the liver mass and the patient was unable to tolerate to lay down flat. He had a chest x-ray was showing the development of a right midlung patchy airspace disease most on the right upper lobe and to also some airspace opacities in the left lung base concerning for pneumonia. Repeat chest x-ray was done and the patient showed improvement in the right upper lobe pulmonary infiltrate with bilateral lower lobe pulmonary infiltrates and small effusion. Lung volumes are essentially small. The patient remains on broad-spectrum antibiotics. The patient is on IV Zosyn for now. He is also having significant amount of edema lower extremity bilaterally and he remains on IV Lasix 40 mg every 12 hours. He remains on bronchodilators. Oncologist on the case. Final diagnoses not been achieved yet. On today's evaluation of 01/04/2023, the patient's condition is somewhat decom pensated. He was placed on 100% nonrebreather facemask in addition to the 15 L of oxygen by nasal cannula to maintain a saturation above 90%. I repeated the chest x-ray and there is evidence of bibasilar atelectasis and there is continued improvement and resolution of the right upper lobe pulmonary infiltrates. X-ray of the abdomen also showed some stable dilated bowel loops unchanged from previous evaluation. The transverse colon and the right colon appears to be dilated out of proportion to the left colon. Partial obstruction/ileus cannot be completely excluded. Extensive retained breathes in the right colon could be related to underlying constipation. The patient has no abdominal pain. Abdomen is slightly distended. The patient remains on diuretics. The patient is producing urine output. Continues to have significant amount of edema lower extremity bilaterally. Remains on IV Zosyn. Remains on IV Lasix. Remains on bronchodilators and steroids. On 01/05/2023, the patient is being seen in the intensive care unit. The patient got transferred to the ICU because of progressive hypoxemia. The patient was placed on a BiPAP and the patient is currently on BiPAP at a pres sure of 14/10 cm of water with FiO2 of 100%. A CT angiogram was done yesterday that showed no evidence of any pulmonary embolism. The CT angiogram showed atelectatic changes in lung bases bilaterally involving the lower lobes and some limited patchy groundglass pulmonary infiltrates and the right upper lobe and the right lower lobe in addition to some background emphysema. However, the abnormalities that were seen are not significant and the patient's hypoxemia remains out of proportion to the CAT scan findings. The patient was also demonstrated to have a T7 compression fracture with 50% height loss. 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 The patient remains on a combination of antibiotics and diuretics. The patient is currently on IV Zosyn and the patient is also receiving Lasix 40 mg IV every 12 hours. The patient remains in negative fluid balance of the lower extremity edema has been improving. The blood gas from today shows a pH of 7.44 with a pC O2 of 40 and pO2 of 61. BUN is at 40 with a creatinine of 1.1 and a sodium level is at 135. The white cell count of 5.5 with a hemoglobin of 9.9. Abdomen is still distended. If at some of the abdomen was done yesterday and it showed stable dilated bowel loops unchanged compared to the earlier x-ray of 01/02/2023. The bowel gas pattern is nonspecific. Transfers: And right colon does appear to be dilated out of proportion to the left. Partial obstruction is within depression diagnosis. Is also extensive retained degrees and stool and the right colon suggesting the possibility of constipation. The patient is currently on a combination of laxatives and the patient is currently receiving senna and Colace. He is awake and alert and communicating at this point in time. 01/06/2023, the patient is awake and alert and communicating. He was taken off the BiPAP and he was placed on a high flow 15 L in addition to nonrebreather facemask with a pulse ox of 94-95%. Chest x-ray findings remain unchanged and stable. No major events overnight. The patient continues to diurese. Urine ou tput is adequate for now. The patient remains on IV Lasix. BUN is at 56 with a creatinine of 1.6 and obviously diuresis needs to be held for now due to development of some prerenal azotemia. Sodiums of 136, potassium levels at 4.3, the bronchoscope was at 4.7 with a hemoglobin of 8.7. The patient remains on IV Zosyn. The abdomen is softer on today's evaluation. He passed a lot of gas yesterday. 01/07/2023 the patient is on a BiPAP at a pressure of 14/10 with an FiO2 of 50% and he has a pulse ox between 94-96%. Is able to generate adequate tidal volumes. His minute ventilation is nonelevated. He is breathing comfortably. He has a congested cough. No significant sputum production and the patient remains on IV Zosyn. The patient's otherwise has no other complaints. Diuretics were held as the patient will have developed an acute kidney injury and the creatinine was up to 1.6 and currently is down to 1.4. Sodium is at 135. White cell cause of 4.3 with a hemoglobin of 8. Chest x-rays are being monitored in the most recent chest x-ray yesterday shows no major abnormalities. Lungs are well expanded and there is some residual patchy right mid lung opacity and some in the left base. There is also some minimal interstitial changes. LFTs are abnormal and the patient has evidence of hepatic steatosis. Ultrasound the liver that was done on 01/02/2023 showed no evidence of any fluid within the abdomen. His CAT scan of the abdomen and pelvis that was done on 12/24/2022 showed innumerable small nodules throughout the liver possibility of liver cirrhosis versus diffuse metastatic disease. He is also known to have cholelithiasis and mild sigmoid colon diverticulosis. On 01/08/2023, the patient is on a BiPAP at pressure 14/8 with an FiO2 of 60% with a pulse ox of 95%. Remains on IV Zosyn. Remains on steroids. Generator tidal volume is above 700 on the BiPAP and a minute ventilation is around 10 L/m. His calm and comfortable in his breathing is nonlabored. He becomes hypoxic once off the BiPAP. Another child will be given with high flow oxygen. The patient otherwise has no new complaints and no significant events over the past 24 hours. Unfortunately, no clear explanation for his hypoxemia. CT of the chest showed no evidence of any pulmonary embolism. That showed background COPD with some limited interstitial infiltrates most on the right. Kidney function is improving and the creatinine is down to 1.2 with a BUN of 56. Diuretics were held for the past 48 hours. Sodium levels of 137. No evidence currently of 5.5 with a hemoglobin of 8.3. Remains on bronchodilators. Cardiac rhythm is sinus. Hemodynamically stable. No pressors. The BiPAP 01/09/2023, the patient is off the BiPAP and the patient is on Airvo 60 L an FiO2 of 70%. Pulse ox is in the order of 92%. He was able to cough out some thick chunks of bloody mucus yesterday. No major signs of respiratory distress and the patient is breathing comfortably at this point in time. No fever. He is lethargic and weak and LFTs continue to be elevated.The white cell cause of 5 .5 with hemoglobin of 8. He is a 36 with a creatinine of 0.5. Sodium is at 136. Bilirubin is at 1.1. AST is 532 and ALT is at 148 and albumin is at 3.1. Objective - Vital Signs Vital signs: Vital Signs Temp 98.1 F 01/09/23 08:00 Pulse 78 01/09/23 08:25 Resp 23 01/09/23 08:00 BP 134/68 01/09/23 08:00 Pulse Ox 89 L 01/09/23 08:00 FiO2 75 01/09/23 07:53 Intake & Output 01/08/23 01/09/23 01/09/23 18:59 06:59 18:59 Intake Total 900 450 Output Total 975 1085 60 Balance -975 -185 390 Weight 102.5 kg Intake: Oral 900 450 Output: Urine 975 1085 60 Other: Voiding Method Indwelling Catheter Indwelling Catheter # Bowel Movements 1 - Exam Gen. appearance obese, comfortable, no acute distress BMI 30.4 Currently on ai rvo 60 liters an FiO2 of 70% Head exam was generally normal. There was no scleral icterus or corneal arcus. Mucous membranes were moist. Neck was supple and without jugular venous distension, thyromegaly, or carotid bruits. Carotids were easily palpable bilaterally. There was no adenopathy. Lungs sounds are diminished bilaterally and the patient has scattered expiratory wheeze Cardiac exam revealed the PMI to be normally situated and sized. The rhythm was regular and no extrasystoles were noted during several minutes of auscultation. The first and second heart sounds were normal and physiologic splitting of the second heart sound was noted. There were no murmurs, rubs, clicks, or gallops. Abdominal exam revealed normal bowel sounds. The abdomen was soft, non-tender, and without masses, organomegaly, or appreciable enlargement of the abdominal aorta. Abdomen is distended with hypoactive bowel sounds. No direct tenderness. No rebound tenderness or guarding Examination of the extremities revealed easily palpable radial, femoral and pedal pulses. There was no cyanosis, clubbing or edema. Examination of the skin revealed no evidence of significant rashes, suspicious appearing nevi or other concerning lesions. Neurologically, the patient is awake and alert and the patient does not have any focal neurological deficit. Cranial nerves are essentially intact. - Labs CBC & Chem 7: 01/09/23 05:24 01/09/23 05:24 Labs: Abnormal Lab Results - Last 24 Hours (Table) 01/08/23 01/08/23 01/08/23 Range/Units 11:21 15:56 20:19 RBC (4.30-5.90) m/uL Hgb (13.0-17.5) gm/dL Hct (39.0-53.0) % Plt Count (150-450) k/uL Sodium (137-145) mmol/L BUN (9-20) mg/dL Glucose (74-99) mg/dL POC Glucose (mg/dL) 150 H 214 H 167 H (70-110) mg/dL Calcium (8.4-10.2) mg/dL AST (17-59) U/L ALT (4-49) U/L Alkaline Phosphatase (38-126) U/L Albumin (3.5-5.0) g/dL 01/09/23 01/09/23 01/09/23 Range/Units 05:24 05:24 06:35 RBC 2.45 L (4.30-5.90) m/uL Hgb 8.0 L (13.0-17.5) gm/dL Hct 23.1 L (39.0-53.0) % Plt Count 76 L (150-450) k/uL Sodium 136 L (137-145) mmol/L BUN 36 H (9-20) mg/dL Glucose 149 H (74-99) mg/dL POC Glucose (mg/dL) 164 H (70-110) mg/dL Calcium 7.1 L (8.4-10.2) mg/dL AST 532 H (17-59) U/L ALT 148 H (4-49) U/L Alkaline Phosphatase 398 H (38-126) U/L Albumin 3.1 L (3.5-5.0) g/dL Assessment and Plan Plan: Assessment and Plan Assessment: Acute hypoxic respiratory failure with multilobar pneumonia more so on the right upper lobe/right middle lobe area, improving with IV Zosyn. The patient became progressively more hypoxic. A repeat CTA of the chest was done that showed no evidence of any pulmonary embolism. There was some residual groundglass pulmonary infiltrates in the right upper lobe and the right lower lobe in addition to extensive atelectatic change in lung bases bilaterally. There is background emphysema. The patient is on Aiivo 60 liters with fio2 of 70%. Oxygenation is stable at this point in time. Shortness of breath secondary to above Diffuse skeletal pain involving the chest wall and back. Bone scan did reveal marked heterogenous uptake involving the bilateral rib cage, vertebral column, pelvis and calvarium appears to correspond to abnormal marrow appearance of the visualized osseous structures on CAT scan. Suspect malignancy. Carcinoembryonic antigen 4441. CA 199 antigen 69.5. Colonoscopy from 12/23/2022 revealed a 5 mm cecal and a 1 cm ascending colon polyps status post biopsies. Pathology pending. No masses identified. He will need a liver biopsy. Xarelto, Aspirin and Plavix remain on hold. Computed tomography scan of the abdomen revealed innumerable small nodules throughout the liver. Heterogenous appearance to the osseous structures. Given the liver findings, correlate for potential infiltrative disease or diffuse osseous metastatic disease. CT angiogram from 12/26/2022 ruled out pulmonary embolism. Abdominal distention with possible constipation and fecal debris is in the right colon. The transverse and the left side is also dilated. The patient is passing gas. He will receive an enema today Acute kidney injury, likely secondary to diuresis. Continues to have lower extremity edema bilaterally. Creatinine is stable for now Hypercalcemia. Received Zometa. Calcium level improved. Left lower lobe pulmonary nodule measuring 1.5 cm, will need an outpatient PET CT and further investigation. Probable metastatic disease to the lung. Coronary artery disease. Vascular disease with a previous fem-pop bypass surgery. Bilateral carotid endarterectomies. Coronary artery disease and coronary stenting. Previous history of CVA. Previous history of DVT of the left lower extremity. Previous history of Covid 19 infection in February 2021. Hypertension. Hyperlipidemia. Abnormal LFTs with cholelithiasis without evidence of cholecystitis. The patient has diffuse multiple liver lesions, likely metastatic History of nephrolithiasis. Plan: Overall condition is stable. No major changes condition. Pulmonary status is stable. Tolerating diet. We'll try to wean down FiO2 as tolerated to [facility] about 90%. We'll keep high flow oxygen system at this point Continue Airvo Continue IV Zosyn Keep the Lasix on hold He did stool following an enema Multiple liver lesions and LFTs are abnormal Calcium level is normalized Continue laxatives regarding abdominal distention. We'll continue with oncology Obviously malignancy workup can be also on an outpatient basis once the patient is more stable and oxygen patient is further improved. She the patient will need a PET/CT We'll continue to follow Condition is critical and the patient will be kept in the ICU for now Time with Patient: Less than 30
[2023-01-09 11:15] LABS: Glucose,Whole Blood 160 mg/dL (70-110)
[2023-01-09] MEDS ORDERED: ERGOCALCIFEROL 1,250 MCG (50,000 IU) CAPSULE PO SCH (12:00)
--- NOTE | 2023-01-09 12:29 | P.PN ---
Subjective Progress Note Date: 01/09/23 67-year-old male was admitted to the hospital with complaints of abdominal pain and found to have cholelithiasis and cholecystitis. Patient also has hypercalcemia. 12/20/2022 Patient is currently lying in the bed. Awake alert and oriented x3. Anxious. Complains of both right upper and and left upper quadrant abdominal pain below the rib cage. Also complaining of back pain. No complaints of nausea vomiting. Patient underwent bone scan today. Due to hypercalcemia. Oncology and nephrology is on board. Laboratory data showed WBC 10.8 hemoglobin 15.1 and platelets 132 BUN 31.4 and creatinine 1.2 and bicarb level is 20.4 anion gap 14.6. Calcium level 12.6. Tumor markers were ordered. 12/21/2022 Patient is currently lying in bed. Awake alert and oriented x3. On oxygen at 4 L via nasal cannula. Still complains of pain below the rib cage. Bone scan was done yesterday showed a markedly heterogenous uptake involving the bilateral rib cage, vertebral column pelvis and calvarium appears to correspond to abnormal marrow appearance of the visualized osseous structures of the CAT scan. Suspect occult malignancy. Otherwise patient is being continued on IV Solu-Medrol DuoNebs and antibiotics and home Zosyn. Also on anticoagulation with Xarelto. Laboratory data showed WBC 8.2 hemoglobin 14.1 and platelets 119 Sodium 138 potassium 4.6 chloride 105 bicarb is 28 BUN 24 and creatinine 1.07 AST 110 ALT 90 alk phos 160. 12/22/2022 Patient is currently lying in bed. Complains of pain. Currently on [place] and morphine sustained-release was ordered. IR guided biopsy of the liver lesion could not be done due to patient being on anticoagulation. Oncology recommends endoscopic evaluation at this time. Otherwise CT of the abdomen pelvis done yesterday showed extensive 1 to 2 cm nodules diffusely throughout the left and right lobes of the liver suspicious for metastatic disease. CEA level is elevated. Laboratory data reviewed. 2022 Patient was admitted to the hospital due to bilateral rib cage pain and hypercalcemia and work-up in process for malignancy. Currently lying in the bed. Awake alert and oriented. No complaints of fever or chills. Currently on 4 L via nasal cannula. Continued on prednisone 30 mg daily. Also, DuoNebs and anticoagulation. Patient is scheduled for EGD and colonoscopy today. Otherwise cultures showed no growth. Patient is off antibiotics currently. Laboratory data showed WBC 8.1 hemoglobin 13.6 and platelets 124 BUN 19.3 and creatinine 0.7. Calcium level came down to 8.5. 12/24/2022 Patient is today had EGD and colonoscopy showing small hiatal hernia and cecal polyp which was removed. No other significant abnormality. Patient had repeat CT of the abdomen and pelvis today showing multiple nodules of the liver suspicious for liver cirrhosis versus metastatic disease area Heterogenous appearance of the osseous structures suspicious for metastatic disease. Moderate to severe stenosis of bilateral iliac arteries and right renal artery. As well as SMA. Cholelithiasis and diverticulitis. Prostate gland calcification 1.1 cm. Left humeral head avascular necrosis with yearly subarticular collapse The plan for him is to get never biopsy however we need to hold Plavix and Eliquis prior to that. There was possible to discharge and the patient and do the procedure as an outpatient and follow-up with oncologist as an outpatient on , however patient still complaining of from severe bilateral rib cage pain and tenderness related most likely due to metastatic disease. Upon consult is obtained. Also patient most likely will have biopsy next week. Discussed with staff 12/25/2022 Patient today looks less lethargic and sitting up in chair, however he is more short of breath and Solu-Medrol is adequate. Repeat chest x-ray showed possible right lower pneumonia and Zosyn is added. proCalcitonin is pending. Also liver biopsy is pending 12/26/2022 pt is still lethargic but alert and awake , lying in bed with generalized we akness, he say his chest and rib cage pain is there but feels tolerable he remains on zosyn and solumedrol 40 mg pending [facility]: neg for PE 12/27/2022 pt clinically looks similar to the last few day, somewhat lewthargic and week , slighly tachypneic due to rib cage pain , tumour mass, and possible fluid overload. he is on 5 L of O2 via nasal cannula he supposed to get liver biopsy but per oncology input this may not be feasable as per notes from the IR team . other options are PET scan which is typically done as outpatient usually, or diagnostic thoracocentasis, we will defer to oncology team the decision on how to obtain the tissue diagnosis pt got one dose of lasix today which looks it helped him a little bit he is on zosyn and solumedrol 40 mg at bed side and all their questions were answered 12/28/2022 No significant change, still tired and weak . Other that he is hemodynamically stable. No new complaint. Patient remains on Zosyn. IV Solu-Medrol switched to prednisone 20 mg. That looks like patient cannot get liver biopsy per IR team. We will discuss with hematology/oncology team further recommendation and the next step in the diagnosis. 12/29/2022 Patient awake alert does not look in much distress, maybe mild oral no respiratory distress, somewhat tachypneic. Last that his oxygen requirement went up and currently he is on high flow nasal cannula with a flow rate of 55 L/m and FiO2 of 100%. Repeated chest x-ray showing no much change from previous still has patchy infiltrates on both sides, transected looks even slightly better on radiology notes. Steroids has been bumped up to 60 mL again this morning. Also she remains on Zo syn. Also patient has some abdominal distention but he tolerates that well, no abdominal pain and tenderness or vomiting. He is passing flatus but he complains from constipation over the last few days. Patient is not to take narcotic pain medication and he is on senna only therefore we added MiraLAX when necessary and Colace with a close monitoring. Oncology team is working on obtaining a biopsy diagnosis for the patient prior to discharge or plan for that. Patient may benefit from PET scan inpatient per oncology team. Discussed with staff Resume of the care of the patient on 01/03/2023 Patient still hypoxic but improving, and oxygen requirements down to 15 L/m. He is lying in bed with no significant respiratory distress, he reports improved in breathing. No cough, no significant chest pain He has right-sided chest pain related to metastatic disease since admission and directed as it/stent and it looks controlled with fentanyl and when necessary oxycodone. Patient reports having adequate bowel movements and is agreeable with the stool softeners. He remains on Zosyn. Also he is on high-dose IV Solu-Medrol 60 mg -Lasix 40 mg twice daily added yesterday Liver biopsy could not be obtained because of the small lesion per IR, hematology/oncology team saw the case 01/04/2023 Patient today is more dyspneic and lethargic. His oxygen requirement went to 30 L/m, and was 15 with a permanent this morning. Interestingly chest x-ray showing improvement in her radiation. he Is still on Zosyn, IV Lasix for 2 without twice daily and salmederol 60 mg Check labs in the morning 01/05/2023 Patient yesterday developed more respiratory distress and A-TEAM was called for him for hypoxia and patient was eventually transferred to the ICU for further management Patient was placed on BiPAP and while in the ICU his requiring more tense sitting this morning, he was 14/10 with FiO2 of 100%. Repeat chest x-ray and CTA of the chest showed no pulmonary embolism and the groundglass opacity in the right upper lobe and the right lower lobe. Pro- calcitonin is mildly elevated. Patient has been on Zosyn for almost 10 days on continue. Reason IV Solu-Medrol 60 mg. He is on Lasix 40 mg twice daily. Discussed with staff Prognosis guarded 01/06: Patient seen and everted bedside patient complains lethargic at this point patient is currently arousable on oxygen supplementation with nonrebreather. Noted to have elevated creatinine nephrology following critical care team following 01/07: Patient seen and everted bedside. Continue to remain on high flow oxygen. Receiving IV antibiotics followed up by pulmonary medicine. Overnight liver profile has still been elevated as well. Patient placed on Ventimask. Lasix is on hold 01/08: Patient has been weaned off from BiPAP to heated high flow. Patient does complain of right chest wall pain. Renal function improves hemoglobin remained stable pulmonary medicine, nephrology following unfortunately not stable for further oncology workup at this point concerning for metastatic malignancy however needs a tissue diagnosis 01/09: Patient seen and evaluated bedside alert and oriented to person and situation. Does complain of generalized pain. Continue me on heat and high flow oxygen, pulmonary medicine following. Liver profile trending down. creatinine has improved. Still workup for malignancy pending Objective - Vital Signs Vital signs: Vital Signs Temp 98.1 F 01/09/23 08:00 Pulse 72 01/09/23 11:17 Resp 16 01/09/23 11:00 BP 128/64 01/09/23 11:00 Pulse Ox 92 L 01/09/23 11:00 FiO2 75 01/09/23 11:07 Intake & Output 08/10/2601/09/23 01/09/23 18:59 06:59 18:59 Intake Total 900 450 Output Total 975 1085 270 Balance -975 -185 180 Weight 102.5 kg Intake: Oral 900 450 Output: Urine 975 1085 270 Other: Voiding Method Indwelling Catheter Indwelling Catheter Indwelling Catheter # Bowel Movements 1 - Exam PHYSICAL EXAMINATION: GENERAL: The patient is alert and oriented x 2 , ill appearance, nasal cannula CARDIOVASCULAR: S1 and S2 present. No murmurs, lower extremity edema PULMONARY: Decreased breath sounds bilaterally, no use of accessory muscle ABDOMEN: Soft, distended, nontender on palpation. MUSCULOSKELETAL: No joint swelling or deformity. EXTREMITIES: 2+ lotion to edema noted. NEUROLOGICAL: Able to move extremities no focal deficits are noted - Labs CBC & Chem 7: 01/09/23 05:24 01/09/23 05:24 Labs: Abnormal Lab Results - Last 24 Hours (Table) 01/08/23 01/08/23 01/09/23 Range/Units 15:56 20:19 05:24 RBC 2.45 L (4.30-5.90) m/uL Hgb 8.0 L (13.0-17.5) gm/dL Hct 23.1 L (39.0-53.0) % Plt Count 76 L (150-450) k/uL Sodium (137-145) mmol/L BUN (9-20) mg/dL Glucose (74-99) mg/dL POC Glucose (mg/dL) 214 H 167 H (70-110) mg/dL Calcium (8.4-10.2) mg/dL AST (17-59) U/L ALT (4-49) U/L Alkaline Phosphatase (38-126) U/L Albumin (3.5-5.0) g/dL 01/09/23 01/09/23 01/09/23 Range/Units 05:24 06:35 11:14 RBC (4.30-5.90) m/uL Hgb (13.0-17.5) gm/dL Hct (39.0-53.0) % Plt Count (150-450) k/uL Sodium 136 L (137-145) mmol/L BUN 36 H (9-20) mg/dL Glucose 149 H (74-99) mg/dL POC Glucose (mg/dL) 164 H 160 H (70-110) mg/dL Calcium 7.1 L (8.4-10.2) mg/dL AST 532 H (17-59) U/L ALT 148 H (4-49) U/L Alkaline Phosphatase 398 H (38-126) U/L Albumin 3.1 L (3.5-5.0) g/dL Assessment and Plan Assessment: * Acute hypoxic respiratory failure with COPD exacerbation * Liver cirrhosis, cannot rule out malignancy given multiple nodules and will require liver biopsy * Right lung pneumonia multifocal * Liver failure with transaminitis multi-factorial with liver lesions noted on CT * Hypercalcemia and pain below the rib cage and also back pain. Malignancy work-up in process. Bone scan showed a markedly heterogenous uptake involving the bilateral rib cage, vertebral column pelvis and calvarium appears to correspond to abnormal marrow appearance of the visualized osseous structures of the CAT scan. Suspect occult malignancy. * COPD with exacerbation * Acute renal failure * Left lower lobe pulmonary nodule measuring 1.5 cm. Outpatient PET scan recommended by pulmonary. * Coronary artery disease with prior history of stent placement * History of CVA * Peripheral vascular disease with previous history of femoropopliteal bypass surgery. * Bilateral carotid endarterectomies * History of DVT left lower extremity * History of CVA/TIA * Hypertension * Hyperlipidemia * Elevated liver enzymes and cholelithiasis without evidence of cholecystitis. * History of nephrolithiasis Plan: * Continue with ICU management, on high flow oxygen alternating with nonrebreather continue patient on IV Solu-Medrol and IV Zosyn COMPLETED for management for COPD exacerbation, multifocal pneumonia CT chest was done on 01/04 negative for pulmonary embolism did show consolidation and right middle lobe and right upper and lower lobes * Consulted pain management is appreciated and patient currently is on fentanyl and oxycodone, he Re- initiated gabapentin 300 mg 3 times a day 01/08 * In regards to acute renal failure, nephrology following, Lasix and hypertensive medications Cozaar and amlodipine on hold due to transient hypotension will monitor renal function * Patient seen by multiple specialities including hematology oncology, pulmonary medicine, nephrology * In regards to history of CVA, patient was on Lipitor which has been discontinued secondary to liver failure * In regards to liver lesions Due to respiratory status unable to have further workup done including MRI liver, CT abdomen and pelvis done earlier ho spitalization did show metastatic disease to liver>> * WORK UP SO FAR>> NM bone scan report reads marked heterogeneous uptake in christy ribs, vertebral column, pelvis, calvarium and these correspond to abn marrow appearance on CT, could be metabolic vs occult malignancy. Pending biopsy of suspicious liver lesions. CEA elevated at 4441 >> EGD and colonoscopy completed, cecal polyp and ascending colon polyp. Pathology reporting tubular adenoma.Computed tomography scan of the abdomen revealed innumerable small nodules throughout the liver. Heterogenous appearance to the osseous structures. Given the liver findings, correlate for potential infiltrative disease or diffuse osseous metastatic disease.
[2023-01-09 16:10] LABS: Glucose,Whole Blood 250 mg/dL (70-110)
[2023-01-09 20:25] LABS: Glucose,Whole Blood 212 mg/dL (70-110)
[2023-01-10 03:14] LABS: HCT 23.3 % (39.0-53.0); HGB 7.8 gm/dL (13.0-17.5); MCH 32.1 pg (25.0-35.0); MCHC 33.7 g/dL (31.0-37.0); MCV 95.3 fL (80.0-100.0); Mean Platelet Volume 9.8; RBC 2.44 m/uL (4.30-5.90); RDW 15.4 % (11.5-15.5); WBC 5.6 k/uL (3.8-10.6)
[2023-01-10 03:18] LABS: Platelet Count 75 k/uL (150-450)
[2023-01-10 03:57] LABS: ALT 155 U/L (4-49); AST 460 U/L (17-59); African American GFR (CKD) >90 (>60 ml/min/1.73 sqM); Albumin 2.9 g/dL (3.5-5.0); Alkaline Phosphatase 490 U/L (38-126); Anion Gap 6 mmol/L; Blood Urea Nitrogen 26 mg/dL (9-20); Calcium 7.9 mg/dL (8.4-10.2); Carbon Dioxide 26 mmol/L (22-30); Chloride 104 mmol/L (98-107); Glucose 194 mg/dL (74-99); Non-African American GFR(CKD) >90 (>60 ml/min/1.73 sqM); Potassium 4.5 mmol/L (3.5-5.1); Sodium 136 mmol/L (137-145); Total Bilirubin 1.1 mg/dL (0.2-1.3); Total Protein 5.9 g/dL (6.3-8.2)
[2023-01-10 06:42] LABS: Glucose,Whole Blood 174 mg/dL (70-110)
[2023-01-10] MEDS: INSULIN ASPART (NovoLOG) 100 UNIT/ML VIAL SQ SCH ×4 (06:47→21:11)
[2023-01-10] MEDS: methylPREDNISolone SOD SUCCI 125 MG/2 ML VIAL IV SCH ×4 (06:47→23:04)
[2023-01-10] MEDS: BUDESONIDE 1 MG/2 ML NEBU INHALATION SCH ×2 (08:08→19:54)
[2023-01-10] MEDS: FORMOTEROL FUMARATE 20 MCG/2 ML NEBU INHALATION SCH ×2 (08:08→19:54)
[2023-01-10] MEDS: IPRATROPIUM-ALBUTEROL 3 ML NEB INHALATION SCH ×4 (08:08→19:54)
--- NOTE | 2023-01-10 08:38 | XR ---
EXAMINATION TYPE: XR chest 1V portable DATE OF EXAM: 01/10/2023 5:53 AM COMPARISON: Chest radiographs from 01/06/2023 TECHNIQUE: XR chest 1V portable Frontal view of the chest. CLINICAL INDICATION:Male, 67 years old with history of right sided multilobar pneumonia; FINDINGS: Lungs/Pleura: No evidence of focal consolidation or pneumothorax. Blunting of the costophrenic angles , left greater than right. Pulmonary vascularity: Unremarkable. Heart/mediastinum: Cardiomediastinal silhouette is enlarged and stable. Atherosclerotic calcificatio ns are seen in the aorta. Musculoskeletal: No acute osseous pathology. IMPRESSION: Low lung volumes with a generalized hazy appearance which could represent atelectasis versus pulmonar y edema correlate with serum BNP.
[2023-01-10] MEDS: DOCUSATE 100 MG CAP PO SCH ×2 (08:41→21:12)
[2023-01-10] MEDS: BACLOFEN 10 MG TAB PO SCH ×2 (08:41→21:12)
[2023-01-10] MEDS: GABAPENTIN 300 MG CAP PO SCH ×3 (08:41→21:12)
[2023-01-10] MEDS: DULoxetine HCL 30 MG CAPSULE.DR PO SCH ×2 (08:41→21:11)
[2023-01-10] MEDS: EZETIMIBE 10 MG TAB PO SCH (08:41)
[2023-01-10] MEDS: PANTOPRAZOLE 40 MG/10 ML VIAL IV SCH ×2 (08:41→21:11)
[2023-01-10] MEDS: SENNOSIDES-DOCUSATE SODIUM 1 EACH TAB PO SCH ×2 (08:41→21:12)
[2023-01-10] MEDS: METOPROLOL TARTRATE 25 MG TAB PO SCH ×2 (08:41→21:12)
[2023-01-10] MEDS: THIAMINE 100 MG TAB PO SCH (08:42)
[2023-01-10 11:44] LABS: Glucose,Whole Blood 205 mg/dL (70-110)
--- NOTE | 2023-01-10 14:03 | P.PN ---
Subjective Progress Note Date: 01/10/23 Principal diagnosis: Acute hypercalcemia, strongly suspect skeletal metastasis. 67-year-old male patient was transferred to us from [facility] for diffuse pain. The pain is mainly across his chest and upper abdomen and across the rib cage addition to chronic back pain. Is known to have chronic dyspnea and the patient is noted COPD and a left lung pulmonary nodule that has been followed up on outpatient basis. Initially went to [facility] and his calcium level was noted to be elevated. Based on his ongoing symptoms, he was referred to us. His current calcium level is at 13. He did not have any previous issues with hypercalcemia. Is known to have COPD, pulmonary nodule, coronary artery disease and extensive peripheral vascular disease and the patient has undergone previous vascular bypass surgery and stenting to the lower extremities. He is also known to have previous history of DVT. Maintain on long-term anticoagulants. At the same time, the patient has hypertension, hyperlipidemia, obesity, chronic back pain and a recent MRI from August 2022 showed wedging of the L2 spine in the order of 15% without any acute fractures. There is also multilevel spondylitic changes and mildly prominent narrowing due to facet arthropathy and disc space narrowing at the level of L4-L5 and old compression fracture the level of L2. Mild edema in the anterior L3 vertebral and posterior L5 vertebral and there is no evidence of any significant lumbar stenosis. The computed tomography scan of the abdomen and pelvis that was done in 09/22/2022 showed moderate to severe narrowing throughout the bilateral external iliac arteries and a stent in the superficial femoral artery was patent on the left. There was cholelithiasis and moderate atherosclerotic changes throughout the abdominal aorta and colonic diverticulosis. There are atelectatic changes in the right posterior base. The abdomen is gravid 7.6, hemoglobin is 15.4 and platelet count is 135. LFTs are abnormal with a AST of 105, ALT 121 and alkaline phosphatase of 193. Bilirubin is at 0.5. Covid 19 testing is negative. Creatinine is at 1.1. On 12/19/2022, the patient is stab le without any change in his condition. On 01/08/2023, the patient is on a BiPAP at pressure 14/8 with an FiO2 of 60% with a pulse ox of 95%. Remains on IV Zosyn. Remains on steroids. Generator tidal volume is above 700 on the BiPAP and a minute ventilation is around 10 L/m. His calm and comfortable in his breathing is nonlabored. He becomes hypoxic once off the BiPAP. Another child will be given with high flow oxygen. The patient otherwise has no new complaints and no significant events over the past 24 hours. Unfortunately, no clear explanation for his hypoxemia. CT of the chest showed no evidence of any pulmonary embolism. That showed background COPD with some limited interstitial infiltrates most on the right. Kidney function is improving and the creatinine is down to 1.2 with a BUN of 56. Diuretics were held for the past 48 hours. Sodium levels of 137. No evidence currently of 5.5 with a hemoglobin of 8.3. Remains on bronchodilators. Cardiac rhythm is sinus. Hemodynamically stable. No pressors. The BiPAP 01/09/2023, the patient is off the BiPAP and the patient is on Airvo 60 L an FiO2 of 70%. Pulse ox is in the order of 92%. He was able to cough out some thick chunks of bloody mucus yesterday. No major signs of respiratory distress and the patient is breathing comfortably at this point in time. No fever. He is lethargic and weak and LFTs continue to be elevated.The white cell cause of 5.5 with hemoglobin of 8. He is a 36 with a creatinine of 0.5. Sodium is at 136. Bilirubin is at 1.1. AST is 532 and ALT is at 148 and albumin is at 3.1. Reevaluated/2022, patient remains marginal this, remains on high flow oxygen at 75% FiO2 and 50 L flow. Patient has been in the hospital now for over 2 weeks, and no major progress has been made regarding his tissue diagnosis. Clearly the patient has metastatic disease, however we could not confirm this by tissue diagnosis because interventional radiology is not considering tissue diagnosis which could be done by liver biopsy or by rib biopsy or skeletal biopsy. I believe at this point the patient should be considered for transfer to a tertiary care center, I discussed his condition today with the at bedside, and I felt that we should really consider transferring the patient to a tertiary care center where interventional radiology could be more aggressive and possibly proceed with a tissue diagnosis. Once a tissue diagnosis is made, then we can possibly approached the family regarding prognosis and possibly comfort care measures. At this point patient is basically about the same, and not making any progress, and I had a feeling he will likely get worse before he gets any better without having a tissue diagnosis. Labs today were reviewed his hemoglobin is 7.80 left lites are normal renal profile is normal liver enzymes continued to be quite elevated Objective - Vital Signs Vital signs: Vital Signs Temp 98.5 F 01/10/23 12:00 Pulse 84 01/10/23 13:00 Resp 15 01/10/23 13:00 BP 128/62 01/10/23 13:00 Pulse Ox 92 L 01/10/23 13:00 FiO2 75 01/10/23 11:58 Intake & Output 01/09/23 01/10/23 01/10/23 18:59 06:59 18:59 Intake Total 3124 127 5847 Output Total 730 1065 395 Balance 670 -565 705 Weight 98.7 kg Intake: Oral 6460 318 4573 Output: Urine 730 1065 395 Other: Voiding Method Indwelling Catheter Indwelling Catheter Indwelling Catheter - Exam Physical Exam: Revealed a 67-year-old white male in no distress on airvo Head: Atraumatic normocephalic. HEENT:[Neck is supple.] [No neck masses.] [No thyromegaly.] [No JVD.] Chest: [Diminished breath sounds at the bases, crackles at the bases and scatte red rhonchi. Cardiac Exam: [Normal S1 and S2, no S3 gallop, no murmur.] Abdomen: [Soft, nontender, no megaly, no rebound, no guarding, normal bowel sounds.] Extremities: [No clubbing, 3+ bipedal edema, no cyanosis.] Neurological Exam: [No focal neurologic deficit.] Alert and oriented 3. Psychiatric: Normal mood affect and normal mental status examination. Skin: No rashes - Labs CBC & Chem 7: 01/10/23 03:00 01/10/23 03:00 Labs: Abnormal Lab Results - Last 24 Hours (Table) 01/09/23 01/09/23 01/10/23 Range/Units 16:08 20:24 03:00 RBC 2.44 L (4.30-5.90) m/uL Hgb 7.8 L (13.0-17.5) gm/dL Hct 23.3 L (39.0-53.0) % Plt Count 75 L (150-450) k/uL Sodium (137-145) mmol/L BUN (9-20) mg/dL Glucose (74-99) mg/dL POC Glucose (mg/dL) 250 H 212 H (70-110) mg/dL Calcium (8.4-10.2) mg/dL AST (17-59) U/L ALT (4-49) U/L Alkaline Phosphatase (38-126) U/L Total Protein (6.3-8.2) g/dL Albumin (3.5-5.0) g/dL 01/10/23 01/10/23 01/10/23 Range/Units 03:00 06:40 11:42 RBC (4.30-5.90) m/uL Hgb (13.0-17.5) gm/dL Hct (39.0-53.0) % Plt Count (150-450) k/uL Sodium 136 L (137-145) mmol/L BUN 26 H (9-20) mg/dL Glucose 194 H (74-99) mg/dL POC Glucose (mg/dL) 174 H 205 H (70-110) mg/dL Calcium 7.9 L (8.4-10.2) mg/dL AST 460 H (17-59) U/L ALT 155 H (4-49) U/L Alkaline Phosphatase 490 H (38-126) U/L Total Protein 5.9 L (6.3-8.2) g/dL Albumin 2.9 L (3.5-5.0) g/dL Assessment and Plan Assessment: Impression: Acute hypoxic respiratory failure secondary to multilobar pneumonia, remains on antibiotics and still requiring significantly high FiO2 and high flow utilizing an open Diffuse skeletal pain involving the chest wall and back. Bone scan did reveal marked heterogenous uptake involving the bilateral rib cage, vertebral column, pelvis and calvarium appears to correspond to abnormal marrow appearance of the visualized osseous structures on CAT scan. Suspect malignancy. Carcinoembryonic antigen 4441. CA 199 antigen 69.5. Hypercalcemia. Received Zometa. Calcium remains normal Coronary artery disease Vascular disease with a previous fem-pop bypass surgery Bilateral carotid endarterectomies Coronary artery disease and coronary stenting Previous history of CVA Previous history of DVT of the left lower extremity Previous history of Covid 19 infection in February 2021 Hypertension Hyperlipidemia Abnormal LFTs with cholelithiasis without evidence of cholecystitis History of nephrolithiasis Recommendation: Continue present supportive care measures Continue bronchodilators, and continue Solu-Medrol Continue to hold Lasix for now. Finished full course of antibiotics strongly recommend tertiary care referral either to [facility] or [facility] or possibly [facility] were and interventional radiology to perform a tissue diagnosis and based on that tissue diagnosis, the family could be approached about possibly comfort care measures. In the meantime continue airvo and titrate accordingly Continue GI and DVT prophylaxis Prognosis is extremely poor at this point. And we will likely do poorly no matter what. Time with Patient: Less than 30
--- NOTE | 2023-01-10 15:01 | P.PN ---
Subjective Progress Note Date: 01/10/23 Principal diagnosis: Abdominal pain. Liver lesions. In follow-up today patient is seen in the ICU. High flow nasal cannula today, he seems stable to talk a little bit easier, he had a bowel movement yesterday. His pain continues to be across the abdomen and back. Objective - Vital Signs Vital signs: Vital Signs Temp 98.5 F 01/10/23 12:00 Pulse 84 01/10/23 13:00 Resp 15 01/10/23 13:00 BP 128/62 01/10/23 13:00 Pulse Ox 92 L 01/10/23 13:00 FiO2 75 01/10/23 11:58 Intake & Output 01/09/23 01/10/23 01/10/23 18:59 06:59 18:59 Intake Total 2137 880 9626 Output Total 730 1065 395 Balance 670 -565 705 Weight 98.7 kg Intake: Oral 4253 093 8990 Output: Urine 730 1065 395 Other: Voiding Method Indwelling Catheter Indwelling Catheter Indwelling Catheter - Constitutional General appearance: Present: cooperative, no acute distress, obese - EENT Eyes: Present: anicteric sclerae, EOMI ENT: Present: hearing grossly normal - Respiratory Details: diminished - Cardiovascular Rhythm: regular - Peripheral edema leg Peripheral Edema: bilateral: 3+, Pitting - Gastrointestinal General gastrointestinal: Present: distended, soft, tenderness - Neurologic Neurologic: Present: CNII-XII intact - Musculoskeletal Musculoskeletal: Present: generalized weakness - Psychiatric Psychiatric: Present: A&O x's 3, appropriate affect, intact judgment & insight - Labs CBC & Chem 7: 01/10/23 03:00 01/10/23 03:00 Labs: Abnormal Lab Results - Last 24 Hours (Table) 01/09/23 01/09/23 01/10/23 Range/Units 16:08 20:24 03:00 RBC 2.44 L (4.30-5.90) m/uL Hgb 7.8 L (13.0-17.5) gm/dL Hct 23.3 L (39.0-53.0) % Plt Count 75 L (150-450) k/uL Sodium (137-145) mmol/L BUN (9-20) mg/dL Glucose (74-99) mg/dL POC Glucose (mg/dL) 250 H 212 H (70-110) mg/dL Calcium (8.4-10.2) mg/dL AST (17-59) U/L ALT (4-49) U/L Alkaline Phosphatase (38-126) U/L Total Protein (6.3-8.2) g/dL Albumin (3.5-5.0) g/dL 01/10/23 01/10/23 01/10/23 Range/Units 03:00 06:40 11:42 RBC (4.30-5.90) m/uL Hgb (13.0-17.5) gm/dL Hct (39.0-53.0) % Plt Count (150-450) k/uL Sodium 136 L (137-145) mmol/L BUN 26 H (9-20) mg/dL Glucose 194 H (74-99) mg/dL POC Glucose (mg/dL) 174 H 205 H (70-110) mg/dL Calcium 7.9 L (8.4-10.2) mg/dL AST 460 H (17-59) U/L ALT 155 H (4-49) U/L Alkaline Phosphatase 490 H (38-126) U/L Total Protein 5.9 L (6.3-8.2) g/dL Albumin 2.9 L (3.5-5.0) g/dL Assessment and Plan (1) Liver lesion Current Visit: Yes Status: Acute Priority: High Code(s): K76.9 - LIVER DISEASE, UNSPECIFIED SNOMED Code(s): 995994044 (2) Abdominal pain Current Visit: Yes Status: Acute Priority: High Code(s): R10.9 - UNSPECIFIED ABDOMINAL PAIN SNOMED Code(s): 76335407 (3) Elevated tumor markers Current Visit: Yes Status: Acute Priority: Medium Code(s): R97.8 - OTHER ABNORMAL TUMOR MARKERS SNOMED Code(s): 588110666 (4) Hypercalcemia Current Visit: Yes Status: Resolved Priority: High Code(s): E83.52 - HYPERCALCEMIA SNOMED Code(s): 13291074 Plan: Liver lesion -Outpatient plans for biopsy-cancelled at this time as pt is not able to position, he is unstable and in ICU. -MRI of the liver unable to be done due to resp status -CEA elevated at 4441 -EGD and colonoscopy completed, cecal polyp and ascending colon polyp. Pathology reporting tubular adenoma -It is felt that if pt gets biopsy of the liver and malignancy is confirmed then pt and family will be more inclined to proceed with comfort measures. Plans are for pt to be transferred to [facility] for liver biopsy. -Case was discussed and summarized with Attending at the bedside Abdominal pain -Pain mgmt consulted and managing. -Buttocks/coccyx pain from laying, unable to adjust body wt. -Pt has had 1 BMs in the last 2 days, abd is still distended but softer. Shortness of breath -Persistent. -CXR reports no evidence of focal consolidation or pneumothorax, blunting of costal phrenic angles, left greater than right, low lung volumes with a generalized hazy appearance, atelectasis versus pulmonary edema -Pulmonary following and treating Hypercalcemia-resolved -Treated with calcitonin and zometa. -NM bone scan report reads marked heterogeneous uptake in christy ribs, vertebral column, pelvis, calvarium and these correspond to abn marrow appearance on CT, could be metabolic vs occult malignancy. Pending biopsy of suspicious liver lesions. -PTH significantly low, 5.4. PTHrP is normal. -Most likely hypercalcemia of malignancy, resolved with treatment. Will recur if due to malignancy/without treatment of malignancy so, cont to monitor Ca++ levels Time with Patient: Greater than 30
--- NOTE | 2023-01-10 16:02 | P.PN ---
Subjective Progress Note Date: 01/10/23 67-year-old male was admitted to the hospital with complaints of abdominal pain and found to have cholelithiasis and cholecystitis. Patient also has hypercalcemia. 12/20/2022 Patient is currently lying in the bed. Awake alert and oriented x3. Anxious. Complains of both right upper and and left upper quadrant abdominal pain below the rib cage. Also complaining of back pain. No complaints of nausea vomiting. Patient underwent bone scan today. Due to hypercalcemia. Oncology and nephrology is on board. Laboratory data showed WBC 10.8 hemoglobin 15.1 and platelets 132 BUN 31.4 and creatinine 1.2 and bicarb level is 20.4 anion gap 14.6. Calcium level 12.6. Tumor markers were ordered. 12/21/2022 Patient is currently lying in bed. Awake alert and oriented x3. On oxygen at 4 L via nasal cannula. Still complains of pain below the rib cage. Bone scan was done yesterday showed a markedly heterogenous uptake involving the bilateral rib cage, vertebral column pelvis and calvarium appears to correspond to abnormal marrow appearance of the visualized osseous structures of the CAT scan. Suspect occult malignancy. Otherwise patient is being continued on IV Solu-Medrol DuoNebs and antibiotics and home Zosyn. Also on anticoagulation with Xarelto. Laboratory data showed WBC 8.2 hemoglobin 14.1 and platelets 119 Sodium 138 potassium 4.6 chloride 105 bicarb is 28 BUN 24 and creatinine 1.07 AST 110 ALT 90 alk phos 160. 12/22/2022 Patient is currently lying in bed. Complains of pain. Currently on [place] and morphine sustained-release was ordered. IR guided biopsy of the liver lesion could not be done due to patient being on anticoagulation. Oncology recommends endoscopic evaluation at this time. Otherwise CT of the abdomen pelvis done yesterday showed extensive 1 to 2 cm nodules diffusely throughout the left and right lobes of the liver suspicious for metastatic disease. CEA level is elevated. Laboratory data reviewed. 2022 Patient was admitted to the hospital due to bilateral rib cage pain and hypercalcemia and work-up in process for malignancy. Currently lying in the bed. Awake alert and oriented. No complaints of fever or chills. Currently on 4 L via nasal cannula. Continued on prednisone 30 mg daily. Also, DuoNebs and anticoagulation. Patient is scheduled for EGD and colonoscopy today. Otherwise cultures showed no growth. Patient is off antibiotics currently. Laboratory data showed WBC 8.1 hemoglobin 13.6 and platelets 124 BUN 19.3 and creatinine 0.7. Calcium level came down to 8.5. 12/24/2022 Patient is today had EGD and colonoscopy showing small hiatal hernia and cecal polyp which was removed. No other significant abnormality. Patient had repeat CT of the abdomen and pelvis today showing multiple nodules of the liver suspicious for liver cirrhosis versus metastatic disease area Heterogenous appearance of the osseous structures suspicious for metastatic disease. Moderate to severe stenosis of bilateral iliac arteries and right renal artery. As well as SMA. Cholelithiasis and diverticulitis. Prostate gland calcification 1.1 cm. Left humeral head avascular necrosis with yearly subarticular collapse The plan for him is to get never biopsy however we need to hold Plavix and Eliquis prior to that. There was possible to discharge and the patient and do the procedure as an outpatient and follow-up with oncologist as an outpatient on , however patient still complaining of from severe bilateral rib cage pain and tenderness related most likely due to metastatic disease. Upon consult is obtained. Also patient most likely will have biopsy next week. Discussed with staff 12/25/2022 Patient today looks less lethargic and sitting up in chair, however he is more short of breath and Solu-Medrol is adequate. Repeat chest x-ray showed possible right lower pneumonia and Zosyn is added. proCalcitonin is pending. Also liver biopsy is pending 12/26/2022 pt is still lethargic but alert and awake , lying in bed with generalized we akness, he say his chest and rib cage pain is there but feels tolerable he remains on zosyn and solumedrol 40 mg pending [facility]: neg for PE 12/27/2022 pt clinically looks similar to the last few day, somewhat lewthargic and week , slighly tachypneic due to rib cage pain , tumour mass, and possible fluid overload. he is on 5 L of O2 via nasal cannula he supposed to get liver biopsy but per oncology input this may not be feasable as per notes from the IR team . other options are PET scan which is typically done as outpatient usually, or diagnostic thoracocentasis, we will defer to oncology team the decision on how to obtain the tissue diagnosis pt got one dose of lasix today which looks it helped him a little bit he is on zosyn and solumedrol 40 mg at bed side and all their questions were answered 12/28/2022 No significant change, still tired and weak . Other that he is hemodynamically stable. No new complaint. Patient remains on Zosyn. IV Solu-Medrol switched to prednisone 20 mg. That looks like patient cannot get liver biopsy per IR team. We will discuss with hematology/oncology team further recommendation and the next step in the diagnosis. 12/29/2022 Patient awake alert does not look in much distress, maybe mild oral no respiratory distress, somewhat tachypneic. Last that his oxygen requirement went up and currently he is on high flow nasal cannula with a flow rate of 55 L/m and FiO2 of 100%. Repeated chest x-ray showing no much change from previous still has patchy infiltrates on both sides, transected looks even slightly better on radiology notes. Steroids has been bumped up to 60 mL again this morning. Also she remains on Zo syn. Also patient has some abdominal distention but he tolerates that well, no abdominal pain and tenderness or vomiting. He is passing flatus but he complains from constipation over the last few days. Patient is not to take narcotic pain medication and he is on senna only therefore we added MiraLAX when necessary and Colace with a close monitoring. Oncology team is working on obtaining a biopsy diagnosis for the patient prior to discharge or plan for that. Patient may benefit from PET scan inpatient per oncology team. Discussed with staff Resume of the care of the patient on 01/03/2023 Patient still hypoxic but improving, and oxygen requirements down to 15 L/m. He is lying in bed with no significant respiratory distress, he reports improved in breathing. No cough, no significant chest pain He has right-sided chest pain related to metastatic disease since admission and directed as it/stent and it looks controlled with fentanyl and when necessary oxycodone. Patient reports having adequate bowel movements and is agreeable with the stool softeners. He remains on Zosyn. Also he is on high-dose IV Solu-Medrol 60 mg -Lasix 40 mg twice daily added yesterday Liver biopsy could not be obtained because of the small lesion per IR, hematology/oncology team saw the case 01/04/2023 Patient today is more dyspneic and lethargic. His oxygen requirement went to 30 L/m, and was 15 with a permanent this morning. Interestingly chest x-ray showing improvement in her radiation. he Is still on Zosyn, IV Lasix for 2 without twice daily and salmederol 60 mg Check labs in the morning 01/05/2023 Patient yesterday developed more respiratory distress and A-TEAM was called for him for hypoxia and patient was eventually transferred to the ICU for further management Patient was placed on BiPAP and while in the ICU his requiring more tense sitting this morning, he was 14/10 with FiO2 of 100%. Repeat chest x-ray and CTA of the chest showed no pulmonary embolism and the groundglass opacity in the right upper lobe and the right lower lobe. Pro- calcitonin is mildly elevated. Patient has been on Zosyn for almost 10 days on continue. Reason IV Solu-Medrol 60 mg. He is on Lasix 40 mg twice daily. Discussed with staff Prognosis guarded 01/06: Patient seen and everted bedside patient complains lethargic at this point patient is currently arousable on oxygen supplementation with nonrebreather. Noted to have elevated creatinine nephrology following critical care team following 01/07: Patient seen and everted bedside. Continue to remain on high flow oxygen. Receiving IV antibiotics followed up by pulmonary medicine. Overnight liver profile has still been elevated as well. Patient placed on Ventimask. Lasix is on hold 01/08: Patient has been weaned off from BiPAP to heated high flow. Patient does complain of right chest wall pain. Renal function improves hemoglobin remained stable pulmonary medicine, nephrology following unfortunately not stable for further oncology workup at this point concerning for metastatic malignancy however needs a tissue diagnosis 01/09: Patient seen and evaluated bedside alert and oriented to person and situation. Does complain of generalized pain. Continue me on heat and high flow oxygen, pulmonary medicine following. Liver profile trending down. creatinine has improved. Still workup for malignancy pending 01/10. Patient seen and examined. Patient continues to be on heated high flow. Pulmonology has discussed with hematology oncology, they recommended transfer patient to tertiary care center. Nam lund contacted, REVIEW OF SYSTEMS: CONSTITUTIONAL: Lethargy and weakness CARDIOVASCULAR: No chest pain, no palpitations, no syncope. PULMONARY: Short of breath on exertion GASTROINTESTINAL: No diarrhea, no nausea, no vomiting, no abdominal pain. NEUROLOGICAL: No headaches, no weakness, PHYSICAL EXAMINATION: GENERAL: The patient is alert and oriented x3, chronically ill-looking, heated high flow HEENT: Pupils are round and equally reacting to light. EOMI. No scleral icterus. No conjunctival pallor. Normocephalic, atraumatic. No pharyngeal erythema. No thyromegaly. CARDIOVASCULAR: S1 and S2 present. No murmurs, rubs, or gallops. PULMONARY: Coarse breath some bilaterally, diminished at the bases ABDOMEN: Distended, normoactive bowel sounds. No palpable organomegaly. MUSCULOSKELETAL: No joint swelling or deformity. EXTREMITIES: 2+ pitting edema lower extremities bilaterally NEUROLOGICAL: Gross neurological examination did not reveal any focal deficits. SKIN: No rashes. Assessment and plan Acute hypoxic respiratory failure with COPD exacerbation * Liver cirrhosis, cannot rule out malignancy given multiple nodules and will require liver biopsy * Right lung pneumonia multifocal * Liver failure with transaminitis multi-factorial with liver lesions noted on CT * Hypercalcemia and pain below the rib cage and also back pain. Malignancy work-up in process. Bone scan showed a markedly heterogenous uptake involving the bilateral rib cage, vertebral column pelvis and calvarium appears to correspond to abnormal marrow appearance of the visualized osseous structures of the CAT scan. Suspect occult malignancy. * COPD with exacerbation * Acute renal failure * Left lower lobe pulmonary nodule measuring 1.5 cm. Outpatient PET scan recommended by pulmonary. * Coronary artery disease with prior history of stent placement * History of CVA * Peripheral vascular disease with previous history of femoropopliteal bypass surgery. * Bilateral carotid endarterectomies * History of DVT left lower extremity * History of CVA/TIA * Hypertension * Hyperlipidemia * Elevated liver enzymes and cholelithiasis without evidence of cholecystitis. * History of nephrolithiasis Plan: Monitor vital signs Monitor CBC Monitor CMP * Continue with ICU management, on high flow oxygen alternating with nonrebreather continue patient on IV Solu-Medrol and IV Zosyn COMPLETED for management for COPD exacerbation, multifocal pneumonia CT chest was done on 01/04 negative for pulmonary embolism did show consolidation and right middle lobe and right upper and lower lobes. Discussed with critical care and hematology oncology, they recommending transfer to [facility], transfer line contacted * Consulted pain management is appreciated and patient currently is on fentanyl and oxycodone, he Re- initiated gabapentin 300 mg 3 times a day 01/08 * In regards to acute renal failure, nephrology following, Lasix and hypertensive medications Cozaar and amlodipine on hold due to transient hypotension , continue to monitor renal functions * In regards to history of CVA, patient was on Lipitor which has been discontinued secondary to liver failure * In regards to liver lesions Due to respiratory status unable to have further workup done including MRI liver, CT abdomen and pelvis done earlier hospitalization did show metastatic disease to liver>> * [id number] with calcitonin and zometa. * WORK UP SO FAR>> NM bone scan report reads marked heterogeneous uptake in christy ribs, vertebral column, pelvis, calvarium and these correspond to abn marrow appearance on CT, could be metabolic vs occult malignancy. Pending biopsy of suspicious liver lesions. CEA elevated at 4441 >> EGD and colonoscopy completed, cecal polyp and ascending colon polyp. Pathology reporting tubular adenoma.Computed tomography scan of the abdomen revealed innumerable small nodules throughout the liver. Heterogenous appearance to the osseous structures. Given the liver findings, correlate for potential infiltrative disease or diffuse osseous metastatic disease. * Discussed with hematology oncology, IR unable to do biopsy, recommending transfer to tertiary care center * * Labs and medication were reviewed.. Continue same treatment. Continue with symptomatic treatment. Resume home medication. Monitor labs and vitals. DVT and GI prophylaxis. Further recommendations as per clinical course of the patient Dictation was produced using [employer] dictation software. please excuse any grammatical, word or spelling errors. Objective - Vital Signs Vital signs: Vital Signs Temp 97.9 F 01/10/23 08:00 Pulse 82 01/10/23 09:00 Resp 19 01/10/23 09:00 BP 114/69 01/10/23 09:00 Pulse Ox 92 L 01/10/23 09:00 FiO2 76 01/10/23 08:11 Intake & Output 01/09/23 01/10/23 01/10/23 18:59 06:59 18:59 Intake Total 1400 500 650 Output Total 730 1065 165 Balance 670 -565 485 Weight 98.7 kg Intake: Oral 1400 500 650 Output: Urine 730 1065 165 Other: Voiding Method Indwelling Catheter Indwelling Catheter Indwelling Catheter - Labs CBC & Chem 7: 01/10/23 03:00 01/10/23 03:00 Labs: Abnormal Lab Results - Last 24 Hours (Table) 01/09/23 01/09/23 01/09/23 Range/Units 11:14 16:08 20:24 RBC (4.30-5.90) m/uL Hgb (13.0-17.5) gm/dL Hct (39.0-53.0) % Plt Count (150-450) k/uL Sodium (137-145) mmol/L BUN (9-20) mg/dL Glucose (74-99) mg/dL POC Glucose (mg/dL) 160 H 250 H 212 H (70-110) mg/dL Calcium (8.4-10.2) mg/dL AST (17-59) U/L ALT (4-49) U/L Alkaline Phosphatase (38-126) U/L Total Protein (6.3-8.2) g/dL Albumin (3.5-5.0) g/dL 01/10/23 01/10/23 01/10/23 Range/Units 03:00 03:00 06:40 RBC 2.44 L (4.30-5.90) m/uL Hgb 7.8 L (13.0-17.5) gm/dL Hct 23.3 L (39.0-53.0) % Plt Count 75 L (150-450) k/uL Sodium 136 L (137-145) mmol/L BUN 26 H (9-20) mg/dL Glucose 194 H (74-99) mg/dL POC Glucose (mg/dL) 174 H (70-110) mg/dL Calcium 7.9 L (8.4-10.2) mg/dL AST 460 H (17-59) U/L ALT 155 H (4-49) U/L Alkaline Phosphatase 490 H (38-126) U/L Total Protein 5.9 L (6.3-8.2) g/dL Albumin 2.9 L (3.5-5.0) g/dL
[2023-01-10 16:40] LABS: Glucose,Whole Blood 246 mg/dL (70-110)
[2023-01-10 20:17] VITALS: TEMP 98.6
[2023-01-10 20:29] LABS: Glucose,Whole Blood 274 mg/dL (70-110)
[2023-01-10 23:12] VITALS: BP 130/91; PULSE 81; RESP 15
== END 2023-01-11 00:08 | disposition short-term general hospital (02) | DRG 435 ==
LOC: EC 21:00 → 5NMEDONC 12-18 02:29 → OBSVTOIN 12-18 11:56 → 3SCARD 12-29 01:37 → 2SICU 01-04 13:24
PROVIDERS: ADMIT Hospitalist; ATTEND Hospitalist
PROC: 0DJ08ZZ Inspection of Upper Intestinal Tract, Via Natural or Artificial Opening Endoscopic (ICD-10-PCS; principal; 2022-12-23 12:30)
PROC: 0DBK8ZZ Excision of Ascending Colon, Via Natural or Artificial Opening Endoscopic (ICD-10-PCS; 2022-12-23 12:30)
PROC: 0DBH8ZZ Excision of Cecum, Via Natural or Artificial Opening Endoscopic (ICD-10-PCS; 2022-12-23 12:30)
PROC: 06HY33Z Insertion of Infusion Device into Lower Vein, Percutaneous Approach (ICD-10-PCS; 2023-01-05)
PROC: 5A09357 Assistance with Respiratory Ventilation, Less than 24 Consecutive Hours, Continuous Positive Airway Pressure (ICD-10-PCS; 2023-01-05)
PROC: 5A0935A Assistance with Respiratory Ventilation, Less than 24 Consecutive Hours, High Flow/Velocity Cannula (ICD-10-PCS; 2023-01-08)
DX: C78.7 Secondary malignant neoplasm of liver and intrahepatic bile duct (principal); J18.9 Pneumonia, unspecified organism; J96.01 Acute respiratory failure with hypoxia; N17.0 Acute kidney failure with tubular necrosis; C78.02 Secondary malignant neoplasm of left lung; C79.51 Secondary malignant neoplasm of bone; M48.56XA Collapsed vertebra, not elsewhere classified, lumbar region, initial encounter for fracture; M48.54XA Collapsed vertebra, not elsewhere classified, thoracic region, initial encounter for fracture; M87.822 Other osteonecrosis, left humerus; K72.90 Hepatic failure, unspecified without coma; D69.6 Thrombocytopenia, unspecified; I27.20 Pulmonary hypertension, unspecified; C26.9 Malignant neoplasm of ill-defined sites within the digestive system; K74.69 Other cirrhosis of liver; J43.9 Emphysema, unspecified; I70.0 Atherosclerosis of aorta; F10.21 Alcohol dependence, in remission; I70.203 Unspecified atherosclerosis of native arteries of extremities, bilateral legs; I70.1 Atherosclerosis of renal artery; I95.9 Hypotension, unspecified; K76.0 Fatty (change of) liver, not elsewhere classified; E66.9 Obesity, unspecified; Z53.29 Procedure and treatment not carried out because of patient's decision for other reasons; D12.0 Benign neoplasm of cecum; D12.2 Benign neoplasm of ascending colon; I10 Essential (primary) hypertension; I65.22 Occlusion and stenosis of left carotid artery; E83.52 Hypercalcemia; K44.9 Diaphragmatic hernia without obstruction or gangrene; K29.70 Gastritis, unspecified, without bleeding; K57.30 Diverticulosis of large intestine without perforation or abscess without bleeding; I25.10 Atherosclerotic heart disease of native coronary artery without angina pectoris; E78.5 Hyperlipidemia, unspecified; I45.10 Unspecified right bundle-branch block; G89.29 Other chronic pain; M48.56XS Collapsed vertebra, not elsewhere classified, lumbar region, sequela of fracture; M47.816 Spondylosis without myelopathy or radiculopathy, lumbar region; K80.20 Calculus of gallbladder without cholecystitis without obstruction; M19.90 Unspecified osteoarthritis, unspecified site; K59.00 Constipation, unspecified; E87.70 Fluid overload, unspecified; N42.0 Calculus of prostate; T50.2X5A Adverse effect of carbonic-anhydrase inhibitors, benzothiadiazides and other diuretics, initial encounter; R60.0 Localized edema; Y95 Nosocomial condition; Z96.641 Presence of right artificial hip joint; Z20.822 Contact with and (suspected) exposure to COVID-19; Z86.79 Personal history of other diseases of the circulatory system; Z68.30 Body mass index [BMI] 30.0-30.9, adult; Z79.82 Long term (current) use of aspirin; Z79.891 Long term (current) use of opiate analgesic; Z79.01 Long term (current) use of anticoagulants; Z79.51 Long term (current) use of inhaled steroids; Z79.899 Other long term (current) drug therapy; Z79.02 Long term (current) use of antithrombotics/antiplatelets; Z91.030 Bee allergy status; Z86.73 Personal history of transient ischemic attack (TIA), and cerebral infarction without residual deficits; Z86.718 Personal history of other venous thrombosis and embolism; Z87.442 Personal history of urinary calculi; I25.2 Old myocardial infarction; Z86.16 Personal history of COVID-19; Z95.5 Presence of coronary angioplasty implant and graft; Z95.820 Peripheral vascular angioplasty status with implants and grafts; Z87.891 Personal history of nicotine dependence; Z80.1 Family history of malignant neoplasm of trachea, bronchus and lung; Z80.0 Family history of malignant neoplasm of digestive organs
CPT/HCPCS: 36415; 36600; 43235; 45380; 45385; 71045; 71046; 71275; 74018; 74019; 74022; 74177; 76604; 76705; 78306; 80048; 80053; 80076; 81001; 82105; 82140; 82164; 82306; 82330; 82378; 82652; 82784; 82805; 83036; 83519; 83605; 83690; 83735; 83880; 83883; 83970; 84100; 84145; 84153; 84165; 84484; 85025; 85027; 85379; 85610; 85730; 86140; 86301; 86334; 86335; 87040; 87070; 87205; 87635; 88305; 93005; 94640; 94660; 94760; 96361; 96374; 96375; 99285